=== PATIENT | male | born 1945 | race Caucasian/White ===

== ENCOUNTER 2023-05-23 18:59 | Inpatient (IN) | payer MEDICARE, SELFPAY ==
[2023-05-23] VITALS (23 sets, daily range): BP systolic 165–186; BP diastolic 88–104; PULSE 76–100; RESP 14–28; TEMP 36.7; O2SAT 92–97; BMI 25.1
--- NOTE | 2023-05-23 19:07 | ECG_ITS ---
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
--- NOTE | 2023-05-23 19:20 | CT_ITS ---
The [address] [address] Patient Name: ABIGAIL BIRMINGHAM MRN: [id number] date: 1945 Sex: M Assigned Patient Location: ER Current Patient Location: Accession/Order Number: [id number] Exam Date: 05/23/2023 19:34 Report Date: 05/23/2023 20:34 At the request of: STEPHANIE GODINEZ Procedure: CT abdomen pelvis wo con EXAM: CT abdomen pelvis wo con TECHNIQUE: Axial CT images were obtained of the abdomen and pelvis with intravenous contrast. Sagittal and coronal reformatted images were also obtained. Dose reduction techniques were achieved by using automated exposure control and/or adjustment of mA and/or kV according to patient size and/or use of iterative reconstruction technique. HISTORY: right sided abd pain COMPARISON: None. FINDINGS: Lower chest: Mild patchy bibasilar scarring and atelectasis. Liver: The liver is homogeneous with normal contours and normal size. Gallbladder: The gallbladder is distended with a thickened wall and surrounding inflammation. Several stones are seen within the gallbladder. No biliary dilatation. Pancreas: The pancreas is homogeneous without evidence for mass lesion or inflammation. Spleen: The spleen is unremarkable without evidence for mass lesion. Adrenal glands: The adrenal glands are unremarkable Kidneys and bladder: Bilateral benign cortical renal cysts. No hydronephrosis. The ureters demonstrate normal caliber. The urinary bladder is unremarkable. GI Tract: Moderate to large paraesophageal hiatal hernia. Visualized small bowel is unremarkable without evidence for obstruction or active inflammation. Diverticula are seen of the colon, more significant involving the distal colon. The visualized large bowel is otherwise unremarkable. Reproductive: The prostate gland is enlarged. Lymph nodes: No retroperitoneal or abdominal lymphadenopathy. Vascular: The aorta is not dilated. Peritoneum: No free intraperitoneal air or fluid. No acute inflammation. Abdominal wall: Severe degenerative facet changes of the lower lumbar spine. CT/CT abdomen pelvis wo con IMPRESSION: Findings of acute cholecystitis. Electronically authenticated by: VANESSA RETANA Date: 05/23/2023 20:34
[2023-05-23 19:26] LABS: Hematocrit 49.4 % (42.0-54.0); Hemoglobin 16.5 g/dL (14.0-18.0); Mean Corpuscular HGB Conc 33.4 g/dL (29.9-35.2); Mean Platelet Volume 9.5 fL (9.5-13.5); Platelet Count 237 10^3/uL (150-450); Red Blood Count 5.68 10^6/uL (4.70-6.10); Red Cell Distribution Width 12.6 % (11.0-15.0); White Blood Count 17.1 10^3/uL (4.0-11.0)
[2023-05-23] MEDS: ONDANSETRON PF 4 MG/2 ML VIAL IV (19:30)
[2023-05-23] MEDS: PANTOPRAZOLE SODIUM 40 MG VIAL IV (19:30)
[2023-05-23 19:42] LABS: Alanine Aminotransferase 25 U/L (16-63); Albumin Globulin Ratio 0.9; Albumin Level 3.8 g/dL (3.4-5.0); Alkaline Phosphatase 132 U/L (46-116); Anion Gap 17.7; Aspartate Amino Transferase 22 U/L (15-37); BUN Creatinine Ratio 15.3; Bilirubin Total 1.5 mg/dL (0.2-1.0); Calcium 9.1 mg/dL (8.5-10.1); Carbon Dioxide 22.9 mmol/L (21.0-32.0); Chloride 97 mmol/L (98-107); Estimated GFR (African America >60 (>=60); Estimated GFR (Non-African Ame >60 (>=60); Globulin 4.2 g/dL; Glucose 178 mg/dL (74-106); Potassium 3.6 mmol/L (3.5-5.1); Sodium 134 mmol/L (136-145); Troponin I High Sensitivity 5.7 pg/mL (4.0-76.1)
--- NOTE | 2023-05-23 19:44 | ED_ITS ---
HPI - General Adult General Chief complaint: Chest Pain Stated complaint: Chest pain Time Seen by Provider: 05/23/23 19:00 Source: patient Mode of arrival: walk-in History of Present Illness HPI narrative: Patient complains of upper abdominal/lower chest pain that is usually typical for GERD. He usually takes a TUMS and it goes away. But if I wait too long, it stays for a long time. He said he could not immediately take a Tums last night when the pain began. Since then he has only taken sips of water because of water. No vomiting or diarrhea. The pain has moved into the right upper abdomen with radiation to the right flank - that is unusual for him. No urinary symptoms or problems passing stool. He denied any fever or chills. No skin rash to the right abdomen or flank. No prior abdominal surgeries. Related Data Home Medications ?Medication ?Instructions ?Recorded ?Confirmed simvastatin 20 mg tablet mg 05/23/23 Allergies Allergy/AdvReac Type Severity Reaction Status Date / Time No Known Drug Allergies Allergy Verified 05/23/23 19:08 Exam Narrative Exam Narrative: Nurses notes and vital signs reviewed and patient is not hypoxic. Afebrile General: Well-appearing and in no apparent distress. Skin: Warm, dry, no pallor noted. No rash To the right abdomen or right flank. Eye: Pupils are equal, round and EOMI. No scleral icterus. Ears, Nose, Mouth, and Throat: Oral mucosa is moist Cardiovascular: Regular Rate and Rhythm without murmur, gallop or rub. Respiratory: No accessory muscle use or respiratory distress. Lungs are clear to auscultation, no wheezing, rales or rhonchi Chest Wall: no tenderness, Crepitus or subcutaneous emphysema Back: No CVA tenderness Musculoskeletal: normal ROM, no calf or popliteal tenderness, no lower extremity edema/swelling GI: Abdomen is soft, non-distended. Normal bowel sounds. No masses appreciated. Mild diffuse right-sided tenderness to palpation. No rebound, guarding, or rigidity noted. Neurological: A&O x4. No cranial nerve dysfunction observed. No truncal ataxia. Moves all extremities. Sensation intact. Psychiatric: Cooperative and interactive. Normal mood and affect. Constitutional Vital Signs, click to edit/add: Last Vital Signs Temp 98.1 F 05/23/23 19:09 Pulse 87 05/23/23 20:20 Resp 19 05/23/23 20:20 BP 179/98 H 05/23/23 20:05 Pulse Ox 95 05/23/23 20:20 Course Vital Signs Vital signs: Vital Signs Pulse Rate 100 H 05/23/23 19:04 Respiratory Rate 22 05/23/23 19:04 Temperature 98.1 F 05/23/23 19:09 Pulse Rate 87 05/23/23 20:20 Respiratory Rate 19 05/23/23 20:20 Blood Pressure 179/98 H 05/23/23 20:05 Pulse Oximetry 95 05/23/23 20:20 Medical Decision Making MDM Narrative Medical decision making narrative: Patient was placed on air sampling and monitoring and EKG obtained. Blood drawn and sent for evaluation. CT scan of the abdomen pelvis was obtained without contrast. Patient has acute cholecystitis. WBC 17k. Total Bilirubin elevated at 1.5 with direct bili at 0.4. Normal electrolytes and renal function. Lactate elevated at 2.3. patient afebrile and did not have SIRS criteria. Patient received IV Invanz. Case discussed with Dr Lyon, general surgeon deputy probation officer and he agreed to be a principal consultant on the case and will see the patient tomorrow. case discussed with the tele hospitalist and the patient will be admitted to Dr Muñiz's service - the patient's PCP is Reva Ritchie. Patient made NPO. He last ate around 6pm yesterday and is not on blood thinners. PMHx = hypercholesterolemia/lipidemia The patient was informed of findings, diagnosis and plan for treatment including admission and is agreeable to that plan. Lab Data Lab results reviewed: Yes I reviewed the patient's lab results Labs: Lab Results 05/23/23 Range/Units 19:13 WBC 17.1 H (4.0-11.0) 10^3/uL RBC 5.68 (4.70-6.10) 10^6/uL Hgb 16.5 (14.0-18.0) g/dL Hct 49.4 (42.0-54.0) % MCV 87.0 (80.0-94.0) fL MCH 29.0 (25.9-34.0) pg MCHC 33.4 (29.9-35.2) g/dL RDW 12.6 (11.0-15.0) % Plt Count 237 (150-450) 10^3/uL MPV 9.5 (9.5-13.5) fL Seg Neuts % (Manual) 87.0 Band Neutrophils % 3.0 (0-5) % Lymphocytes % (Manual) 1.0 L (20.5-60.0) % Atypical Lymphs % (Man) 0.0 % Monocytes % (Manual) 9.0 (1.7-12.0) % Eosinophils % (Manual) 0.0 L (0.9-7.0) % Basophils % (Manual) 0.0 L (0.2-2.0) % Neutrophils # (Manual) 14.87 H (1.4-6.5) 10^3/uL Band Neutrophils # 0.5 H (0.0-0.3) 10^3/uL Lymphocytes # (Manual) 0.17 L (1.20-3.80) 10^3/uL Abs Atypical Lymphs Man 0.00 Monocytes # (Manual) 1.53 H (0.30-0.80) 10^3/uL Eosinophils # (Manual) 0.00 (0.00-0.70) 10^3/uL Basophils # (Manual) 0.00 (0.00-0.10) 10^3/uL Sodium 134 L (136-145) mmol/L Potassium 3.6 (3.5-5.1) mmol/L Chloride 97 L (98-107) mmol/L Carbon Dioxide 22.9 (21.0-32.0) mmol/L Anion Gap 17.7 BUN 17.0 (7.0-18.0) mg/dL Creatinine 1.11 (0.70-1.30) mg/dL Est GFR ( Amer) >60 (>=60) Est GFR (Non-Af Amer) >60 (>=60) BUN/Creatinine Ratio 15.3 Glucose 178 H (74-106) mg/dL Lactate 2.3 H* (0.4-2.0) mmol/L Calcium 9.1 (8.5-10.1) mg/dL Total Bilirubin 1.5 H (0.2-1.0) mg/dL Direct Bilirubin 0.4 H (0.0-0.2) mg/dL AST 22 (15-37) U/L ALT 25 (16-63) U/L Alkaline Phosphatase 132 H (46-116) U/L Troponin I High Sens 5.7 (4.0-76.1) pg/mL Total Protein 8.0 (6.4-8.2) g/dL Albumin 3.8 (3.4-5.0) g/dL Globulin 4.2 g/dL Albumin/Globulin Ratio 0.9 Lipase 20.0 (16.0-77.0) U/L Imaging Data CT scan - abdomen: Radiologist's impression: ITS Impressions Abdomen/Pelvis CT 05/23/23 19:20 IMPRESSION: Findings of acute cholecystitis. Electronically authenticated by: VANESSA RETANA Date: 05/23/2023 20:34 ECG Data Attestation: I personally reviewed and interpreted this ECG as follows: Interpretation: EKG interpretation: Emergency Department physician interpretation. Normal sinus rhythm at 96bpm. Normal axis, normal intervals and no ST segment elevation or depression. Normal EKG Discharge Plan Discharge Chief Complaint: Chest Pain Clinical Impression: Acute cholecystitis Patient Disposition: Admitted as Observation Time of Disposition Decision: 20:58
[2023-05-23 19:50] LABS: Lactate/Lactic Acid 2.3 mmol/L (0.4-2.0)
[2023-05-23 20:03] LABS: Band Neutrophils Absolute 0.5 10^3/uL (0.0-0.3); Lymphocytes Absolute Manual 0.17 10^3/uL (1.20-3.80); Monocytes Absolute Manual 1.53 10^3/uL (0.30-0.80); Segmented Neut Absolute Manual 14.87 10^3/uL (1.4-6.5)
[2023-05-23 20:16] LABS: Bilirubin Direct 0.4 mg/dL (0.0-0.2)
[2023-05-23] MEDS: MORPHINE SULFATE 4 MG/ML VIAL IV (20:18)
[2023-05-23] MEDS: 0.9 % SODIUM CHLORIDE 1,000 ML 1000 ML IV (20:19)
[2023-05-23] MEDS: ERTAPENEM SODIUM 1 GM in 0.9 % SODIUM CHLORIDE 50 ML IV (21:17)
[2023-05-23 22:51] LABS: Lactate/Lactic Acid 2.1 mmol/L (0.4-2.0)
[2023-05-24] VITALS (23 sets, daily range): BP systolic 107–182; BP diastolic 68–104; PULSE 77–98; RESP 12–20; TEMP 36.6–38.4; O2SAT 90–94
[2023-05-24] MEDS: 0.9 % SODIUM CHLORIDE 1,000 ML 100 ML IV ×3 (00:35→21:16)
[2023-05-24 02:24] LABS: Lactate/Lactic Acid 2.1 mmol/L (0.4-2.0)
--- NOTE | 2023-05-24 07:23 | PM.GSCN ---
History of Present Illness Consult details Consult date: 05/24/23 Reason for consult: gallstones Requesting physician: Jc Long Narrative: Paresh Mahmood is a 77-year-old male who presented to the Emergency Department last evening with complaints of right upper quadrant of Paresh pain progressively becoming worse since Monday at noon. He denies any nausea or vomiting but that admitted to fever and chills. He's had pain in the epigastrium for 10-15 years which is self treated with Tums which is always relieved his discomfort. He is and lives alone. He has two daughters one which lives in [place] and one in [facility]. 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 He walks 2 miles a day. He rated the pain as a ten out of ten last night and this morning as a five out of ten slightly better. CAT scan of the abdomen and pelvis was related to me and stated that he had acute cholecystitis with cholelithiasis. He has never been hospitalized. He drinks heavily in the past but now only drinks 1-2 alcoholic beverages a week. Denies tobacco use. Review of Systems ROS Status of ROS 10 or more systems reviewed and unremarkable except as noted in history and below [facility] Medical History (Updated 05/23/23 @ 21:55 by Paola Sanchez) High cholesterol ?E78.00 - Pure hypercholesterolemia, unspecified (ICD-10) Surgical History Hx of tonsillectomy ?Z90.89 - Acquired absence of other organs (ICD-10) Social History Highest level of school completed/degree received: GED or equivalent Gender Identity: male Meds Home Medications and Allergies Home Medications ?Medication ?Instructions ?Recorded ?Confirmed ?Type simvastatin 20 mg tablet 40 mg PO DAILY 05/23/23 05/23/23 History Allergies Allergy/AdvReac Type Severity Reaction Status Date / Time No Known Drug Allergies Allergy Verified 05/23/23 19:08 Exam Constitutional Vital Signs, click to edit/add: Last Vital Signs Temp 98.9 F 05/24/23 04:00 Pulse 94 H 05/24/23 04:00 Resp 16 05/24/23 04:00 BP 182/100 H 05/24/23 04:00 Pulse Ox 90 L 05/24/23 04:00 O2 Del Method Room Air 05/24/23 04:00 Documenting provider has reviewed patient's vital signs: yes Common normals: no apparent distress, average body habitus, oriented x3, healthy appearing, alert and well nourished HENPR Common normals: normocephalic Eye Common normals: no scleral icterus Respiratory Common normals: normal respiratory effort and clear to auscultation bilaterally Cardio Common normals: regular rate and regular rhythm Rate: regular rate Rhythm: regular rhythm GI Common normals: Normal to inspection, nondistended, normoactive bowel sounds present and soft to palpation Palpation: tender Details: RUQ and Herrera's sign Extremity Common normals: normal to inspection and full ROM Neuro Common normals: oriented x3 and CN's II-XII intact bilaterally Results Labs Labs: Abnormal lab results 05/23/23 05/23/23 05/24/23 Range/Units 19:13 22:17 02:00 WBC 17.1 H (4.0-11.0) 10^3/uL Lymphocytes % (Manual) 1.0 L (20.5-60.0) % Eosinophils % (Manual) 0.0 L (0.9-7.0) % Basophils % (Manual) 0.0 L (0.2-2.0) % Neutrophils # (Manual) 14.87 H (1.4-6.5) 10^3/uL Band Neutrophils # 0.5 H (0.0-0.3) 10^3/uL Lymphocytes # (Manual) 0.17 L (1.20-3.80) 10^3/uL Monocytes # (Manual) 1.53 H (0.30-0.80) 10^3/uL Sodium 134 L (136-145) mmol/L Chloride 97 L (98-107) mmol/L Glucose 178 H (74-106) mg/dL Lactate 2.3 H* 2.1 H 2.1 H (0.4-2.0) mmol/L Total Bilirubin 1.5 H (0.2-1.0) mg/dL Direct Bilirubin 0.4 H (0.0-0.2) mg/dL Alkaline Phosphatase 132 H (46-116) U/L Diabetes panel 05/23/23 Range/Units 19:13 Sodium 134 L (136-145) mmol/L Potassium 3.6 (3.5-5.1) mmol/L Chloride 97 L (98-107) mmol/L Carbon Dioxide 22.9 (21.0-32.0) mmol/L BUN 17.0 (7.0-18.0) mg/dL Creatinine 1.11 (0.70-1.30) mg/dL Glucose 178 H (74-106) mg/dL Calcium 9.1 (8.5-10.1) mg/dL AST 22 (15-37) U/L ALT 25 (16-63) U/L Alkaline Phosphatase 132 H (46-116) U/L Total Protein 8.0 (6.4-8.2) g/dL Albumin 3.8 (3.4-5.0) g/dL Calcium panel 05/23/23 Range/Units 19:13 Calcium 9.1 (8.5-10.1) mg/dL Albumin 3.8 (3.4-5.0) g/dL Pituitary panel 05/23/23 Range/Units 19:13 Sodium 134 L (136-145) mmol/L Potassium 3.6 (3.5-5.1) mmol/L Chloride 97 L (98-107) mmol/L Carbon Dioxide 22.9 (21.0-32.0) mmol/L BUN 17.0 (7.0-18.0) mg/dL Creatinine 1.11 (0.70-1.30) mg/dL Glucose 178 H (74-106) mg/dL Calcium 9.1 (8.5-10.1) mg/dL Adrenal panel 05/23/23 Range/Units 19:13 Sodium 134 L (136-145) mmol/L Potassium 3.6 (3.5-5.1) mmol/L Chloride 97 L (98-107) mmol/L Carbon Dioxide 22.9 (21.0-32.0) mmol/L BUN 17.0 (7.0-18.0) mg/dL Creatinine 1.11 (0.70-1.30) mg/dL Glucose 178 H (74-106) mg/dL Calcium 9.1 (8.5-10.1) mg/dL Total Bilirubin 1.5 H (0.2-1.0) mg/dL AST 22 (15-37) U/L ALT 25 (16-63) U/L Alkaline Phosphatase 132 H (46-116) U/L Total Protein 8.0 (6.4-8.2) g/dL Albumin 3.8 (3.4-5.0) g/dL All other labs normal. Imaging Abdomen CT scan report/results: report reviewed Assessment and Plan Assessment and Plan (1) Acute cholecystitis: (2) High cholesterol: Plan robotic/da Susan cholecystectomy with IC Green with possible open cholecystectomy. Risks benefits and alternatives to surgery may include infection, bleeding, bile duct injury, blood clots legs or lungs, pneumonia, heart attack, stroke, and/or . Patient voiced understanding of all the above.
[2023-05-24 08:02] LABS: Hematocrit 48.3 % (42.0-54.0); Mean Corpuscular HGB Conc 33.1 g/dL (29.9-35.2); Mean Corpuscular Hemoglobin 29.4 pg (25.9-34.0); Mean Corpuscular Volume 88.6 fL (80.0-94.0); Mean Platelet Volume 9.6 fL (9.5-13.5); Platelet Count 227 10^3/uL (150-450); Red Blood Count 5.45 10^6/uL (4.70-6.10); Red Cell Distribution Width 12.9 % (11.0-15.0); White Blood Count 21.1 10^3/uL (4.0-11.0)
--- NOTE | 2023-05-24 08:04 | P.HP_ITS ---
HPI H&P: HPI History of Present Illness Chief complaint: Chest pain Acute Cholecystitis Narrative: Patient presented to the emergency room with increasing right upper quadrant pain. Epigastric pain as well. No shortness of breath. No pain up into the chest. In ER CT scan confirmed acute cholecystitis. With elevation of white blood cell count and positive lactate patient was placed on IV antibiotics, admitted for surgical intervention this morning. Opioid HPI Opioid Management Most Recent Opioid Data: Last Pain Assessment 05/24/23 12:35 Last MAR Pain Assessment 05/24/23 08:52 Last ORT Total Score 4 05/23/23 21:50 Last ORT Risk Category Moderate Risk 05/23/23 21:50 Review of Systems ROS Status of ROS 10 or more systems reviewed and unremark able except as noted in history and below [facility] Medical History (Updated 05/23/23 @ 21:55 by Paola Sanchez) High cholesterol ?E78.00 - Pure hypercholesterolemia, unspecified (ICD-10) Surgical History Hx of tonsillectomy ?Z90.89 - Acquired absence of other organs (ICD-10) Social History Highest level of school completed/degree received: GED or equivalent Gender Identity: male Meds Home Medications and Allergies Home Medications ?Medication ?Instructions ?Recorded ?Confirmed ?Type simvastatin 20 mg tablet 40 mg PO DAILY 05/23/23 05/23/23 History Allergies Allergy/AdvReac Type Severity Reaction Status Date / Time No Known Drug Allergies Allergy Verified 05/23/23 19:08 Exam Constitutional Vital Signs, click to edit/add: Last Vital Signs Temp 98.7 F 05/24/23 07:55 Pulse 98 H 05/24/23 07:55 Resp 16 05/24/23 07:55 BP 180/93 H 05/24/23 07:55 Pulse Ox 90 L 05/24/23 07:55 O2 Del Method Room Air 05/24/23 07:55 Documenting provider has reviewed patient's vital signs: yes Common normals: no apparent distress Chest Common normals: inspection of chest normal Respiratory Common normals: normal respiratory effort and no retractions Cardio Common normals: regular rate and regular rhythm GI Common normals: Normal to inspection, nondistended, normoactive bowel sounds present and soft to palpation; tender (right upper quadrant tenderness with positive Herrera's, no rebound tenderne) Extremity Common normals: normal to inspection Results Labs Labs: Short CBC 05/23/23 05/24/23 Range/Units 19:13 07:48 WBC 17.1 H 21.1 H (4.0-11.0) 10^3/uL Hgb 16.5 16.0 (14.0-18.0) g/dL Hct 49.4 48.3 (42.0-54.0) % Plt Count 237 227 (150-450) 10^3/uL BMP 05/23/23 19:13 Sodium 134 L Potassium 3.6 Chloride 97 L Carbon Dioxide 22.9 BUN 17.0 Creatinine 1.11 Glucose 178 H Calcium 9.1 Liver Function 05/23/23 Range/Units 19:13 Total Bilirubin 1.5 H (0.2-1.0) mg/dL Direct Bilirubin 0.4 H (0.0-0.2) mg/dL AST 22 (15-37) U/L ALT 25 (16-63) U/L Alkaline Phosphatase 132 H (46-116) U/L Albumin 3.8 (3.4-5.0) g/dL Assessment and Plan Assessment and Plan (1) Acute cholecystitis: (2) High cholesterol: Plan Fever, respiratory distress, sinus tachycardia, uncontrolled hypertension, leukocytosis, positive lactate, hyperbilirubinemia, borderline coagulopathy secondary to acute cholecystitis resulting in severe sepsis-plan for surgical intervention this morning. Place patient on continued IV antibiotics. IV fluids. Blood cultures obtained. Held off on high volume of fluids secondary to blood pressure already significantly elevated, high risk for heart failure. Leukocytosis-likely secondary to the above-continue to monitor daily Hyponatremia secondary to dehydration secondary to the above-monitor daily Uncontrolled hypertension-IV medications until can take oral medications Hypercholesterolemia-hold medication for now With severe sepsis due to acute cholecystitis medically necessary treatment spanning more than 2 midnights, place patient inpatient status.
[2023-05-24 08:19] LABS: Ammonia <10 umol/L (11-32)
[2023-05-24 08:20] LABS: Alanine Aminotransferase 24 U/L (16-63); Albumin Globulin Ratio 0.7; Alkaline Phosphatase 115 U/L (46-116); Amylase 27 U/L (25-115); Anion Gap 16.1; Aspartate Amino Transferase 19 U/L (15-37); BUN Creatinine Ratio 16.5; Bilirubin Total 1.2 mg/dL (0.2-1.0); Calcium 8.7 mg/dL (8.5-10.1); Carbon Dioxide 25.3 mmol/L (21.0-32.0); Chloride 101 mmol/L (98-107); Estimated GFR (African America >60 (>=60); Estimated GFR (Non-African Ame >60 (>=60); Globulin 4.3 g/dL; Glucose 125 mg/dL (74-106); Potassium 4.4 mmol/L (3.5-5.1); Sodium 138 mmol/L (136-145); Total Protein 7.3 g/dL (6.4-8.2)
[2023-05-24] MEDS: INDOCYANINE GREEN 25 MG VIAL INJ (08:25)
[2023-05-24] MEDS: LACTATED RINGER'S SOLUTION 1,000 ML 50 ML IV (08:26)
[2023-05-24 08:36] LABS: Lymphocytes Absolute Manual 0.84 10^3/uL (1.20-3.80); Monocytes Absolute Manual 1.47 10^3/uL (0.30-0.80); Segmented Neut Absolute Manual 18.77 10^3/uL (1.4-6.5)
[2023-05-24 08:38] LABS: INR 1.24; Partial Thromboplastin Time 32.9 sec (22.3-36.2)
[2023-05-24] MEDS: HYDROMORPHONE HCL 0.5 MG/0.5 ML SYRINGE IV ×2 (08:52→13:17)
--- NOTE | 2023-05-24 09:34 | P.GSPRC_ITS ---
Date of procedure: 05/24/23 Indications for Procedure: acute cholecystitis with cholelithiasis Pre-op diagnosis: acute cholecystitis with cholelithiasis;umbilical hernia Post-op diagnosis: other (acute gangrenous cholecystitis with cholelithiasis) Procedure: #1.robotic da Susan cholecystectomy with IC Green #2. Umbilical hernia repair primary 1.5 cm Findings: acute gangrenous cholecystitis with cholelithiasis Anesthesia: JT Surgeon: Jeronimo Lyon Procedure Summary: After again explaining the risks and benefits of the procedure in the preoperative care unit consent was obtained. ?The patient was taken back to the operative room and placed on the operative room table. General endotracheal anesthesia was induced and preoperative antibiotics were given. ?Appropriate time-out was performed. ?Right arm was?tucked at the side. ?Then the bed was positioned appropriately. ?The abdomen was prepped and draped in normal sterile fashion. A periumbilical incision was made. ?Dissection was carried down to the fascia. ?Fascia was elevated with jolene clamps and entered sharply.there was an umbilical hernia that was measuring 1.5 cm which we were able to enter the peritoneal cavity. A 12 mm port was placed into the abdomen and the abdomen was insufflated, there were no complications with insufflation. ?The scope and camera was brought in and then 3 more ports were placed. An 8?mm port was placed in the right lateral position. Two additional?8 mm Davinci ports were placed, 8 cm to the left and one to the right of the umbilicus. ?The patient was then placed in reverse Trendelenburg position and slightly turned to the left. The [employer] robot was docked. The 4th arm was used to grasp the dome of the gallbladder superiorly. ?The peritoneal attachments were taken down with meticulous dissection laterally and medially from the gallbladder. the gallbladder was very distended therefore cautery was used of the hook to open it and clear bile came out and this was suctioned out as much as possible in order to grasp the dome of the gallbladder.?At this point the infundibular gallbladder was retracted laterally and a critical view was obtained. ?With the cystic duct inferiorlywith a stone within it cystic artery medially and the liver posteriorly. ?Two clips were placed on the patient side and 1 on the specimen side of both the cystic duct and the cystic artery. ?These were then excised. ?The remainder of the gallbladder was taken off of the gallbladder fossa using electrocautery.there was a lot of oozing because of the acuteness. Hemostasis was maintained and a large piece of Surgicel was placed into the gallbladder fossa. There was spillage of stones and when I tried to grasp them they crushed and cholesterol stones and couldn't be removed. Everything was irrigated as much as possible and aspirated. The gallbladder was then removed through the umbilical port using Endo-Catch bag. ?The gallbladder fossa was visualized again to confirm no bleeding and no leak from the cystic duct. The robot was undocked from the patient. The abdomen was deinsufflated.? The anterior rectus fascia from the hernia was closed with a denosb-el-zeosw #1Vicryl. The skin was closed at all the incisions with 4 0 Monocryl. All incisions and underlying muscle was anesthetized with local anesthetic.? Steri- Strips were then placed over the incisions. The patient was extubated and had no immediate postoperative complications. Patient was taken to the PACU in stable condition. Gold Burnisher: SARAH Menezes Estimated blood loss (mL): 50 Specimens: gallbladder and stones Complications: No Condition: stable Disposition: PACU
[2023-05-24] MEDS: HYDRALAZINE HCL 20 MG/ML VIAL 10 MG IVP ×2 (13:17→16:57)
--- NOTE | 2023-05-24 13:19 | SWNOTE1 ---
SW met with pt to discuss dc needs. Pt lives at home by himself, he has family (daughters), who help him as needed. Pt is active and runs 2 miles daily. Pt has no concerns about discharge. SW reviewed IMM form with pt, he voiced understanding, no questions or concerns. Pt signed form, original was given to pt and copy placed on chart.
[2023-05-24] MEDS: CARVEDILOL 6.25 MG TABLET PO (16:57)
[2023-05-24] MEDS: OXYCODONE HCL/ACETAMINOPHEN 5MG/325MG 1 TAB PO (21:15)
[2023-05-24] MEDS: ERTAPENEM SODIUM 1 GM in 0.9 % SODIUM CHLORIDE 50 ML IV (21:16)
[2023-05-24] MEDS: PANTOPRAZOLE SODIUM 40 MG VIAL IV (21:16)
[2023-05-25] VITALS (14 sets, daily range): BP systolic 113–159; BP diastolic 68–88; PULSE 75–92; RESP 16–20; TEMP 36.6–37.4; O2SAT 86–95; BMI 25.1
[2023-05-25 04:59] LABS: Basophils Percent Auto 0.1 % (0.2-2.0); Eosinophils Absolute Auto 0.1 10^3/uL (0.0-0.7); Eosinophils Percent Auto 0.4 % (0.9-7.0); Hematocrit 41.2 % (42.0-54.0); Hemoglobin 13.5 g/dL (14.0-18.0); Immature Granulocytes Abs Auto 0.04 10^3/uL (0.00-0.03); Immature Granulocytes Pct Auto 0.4 % (0.0-0.5); Lymphocytes Absolute Auto 0.6 10^3/uL (1.2-3.8); Lymphocytes Percent Auto 5.2 % (20.5-60.0); Mean Corpuscular HGB Conc 32.8 g/dL (29.9-35.2); Mean Corpuscular Volume 88.4 fL (80.0-94.0); Mean Platelet Volume 9.8 fL (9.5-13.5); Monocytes Absolute Auto 0.7 10^3/uL (0.3-0.8); Monocytes Percent Auto 6.1 % (1.7-12.0); Neutrophils Percent Auto 87.8 % (43.0-75.0); Platelet Count 179 10^3/uL (150-450); Red Blood Count 4.66 10^6/uL (4.70-6.10); Red Cell Distribution Width 13.1 % (11.0-15.0); White Blood Count 11.4 10^3/uL (4.0-11.0)
[2023-05-25 05:22] LABS: Alanine Aminotransferase 25 U/L (16-63); Albumin Globulin Ratio 0.6; Albumin Level 2.1 g/dL (3.4-5.0); Alkaline Phosphatase 86 U/L (46-116); Amylase 12 U/L (25-115); Anion Gap 12.7; Aspartate Amino Transferase 28 U/L (15-37); BUN Creatinine Ratio 20.7; Bilirubin Total 0.8 mg/dL (0.2-1.0); Calcium 7.8 mg/dL (8.5-10.1); Carbon Dioxide 25.2 mmol/L (21.0-32.0); Chloride 105 mmol/L (98-107); Estimated GFR (African America >60 (>=60); Estimated GFR (Non-African Ame >60 (>=60); Globulin 3.7 g/dL; Glucose 96 mg/dL (74-106); Potassium 3.9 mmol/L (3.5-5.1); Sodium 139 mmol/L (136-145); Total Protein 5.8 g/dL (6.4-8.2)
--- NOTE | 2023-05-25 05:42 | PM.GSPN ---
Progress Note: A&P Assessment and Plan (1) Acute cholecystitis: (2) High cholesterol: Assessment and Plan: postop day #1 robotic cholecystectomy for gangrenous cholecystitis with cholelithiasis suspect he has an ileus Plan I encourage ambulation and liquids only until passing flatus and continue IV antibiotics spillage of stone in the abdomen and gangrene of the gallbladder until white blood count is trending downward. Labs pending. Subjective Subjective Patient reports: no new complaints, feels better, pain is less, no flatus and no bowel movement Interval history: postop day #1 robotic cholecystectomy for acute gangrenous cholecystitis with cholelithiasis; pain is better. Is not passing flatus or is not had any bowel movements. Exam Constitutional Vital Signs, click to edit/add: Last Vital Signs Temp 98.7 F 05/25/23 04:11 Pulse 87 05/25/23 04:11 Resp 18 05/25/23 04:11 BP 143/77 H 05/25/23 04:11 Pulse Ox 92 L 05/25/23 04:11 O2 Del Method Nasal Cannula 05/25/23 04:11 O2 Flow Rate 4 05/25/23 04:11 GI Common normals: soft to palpation Inspection: other (slightly distended and tympanitic) Auscultation: hypoactive bowel sounds
--- NOTE | 2023-05-25 07:23 | P.PN_ITS ---
Exam Constitutional Vital Signs, click to edit/add: Last Vital Signs Temp 98.7 F 05/25/23 04:11 Pulse 87 05/25/23 04:11 Resp 18 05/25/23 04:11 BP 143/77 H 05/25/23 04:11 Pulse Ox 92 L 05/25/23 04:11 O2 Del Method Nasal Cannula 05/25/23 04:11 O2 Flow Rate 4 05/25/23 04:11 Progress Note: Objective Labs Labs: Short CBC 05/24/23 05/25/23 Range/Units 07:48 04:14 WBC 21.1 H 11.4 H (4.0-11.0) 10^3/uL Hgb 16.0 13.5 L (14.0-18.0) g/dL Hct 48.3 41.2 L (42.0-54.0) % Plt Count 227 179 (150-450) 10^3/uL BMP 05/24/23 05/25/23 07:48 04:14 Sodium 138 139 Potassium 4.4 3.9 Chloride 101 105 Carbon Dioxide 25.3 25.2 BUN 17.0 24.0 H Creatinine 1.03 1.16 Glucose 125 H 96 Calcium 8.7 7.8 L Liver Function 05/24/23 05/25/23 Range/Units 07:48 04:14 Total Bilirubin 1.2 H 0.8 (0.2-1.0) mg/dL AST 19 28 (15-37) U/L ALT 24 25 (16-63) U/L Alkaline Phosphatase 115 86 (46-116) U/L Albumin 3.0 L 2.1 L (3.4-5.0) g/dL Progress Note: A&P Assessment and Plan (1) Acute cholecystitis: (2) High cholesterol: Plan Fever, respiratory distress, sinus tachycardia, uncontrolled hypertension, leukocytosis, positive lactate, hyperbilirubinemia, borderline coagulopathy secondary to acute cholecystitis resulting in severe sepsis on admission -status post cholecystectomy on 05/24/2023, white blood cell count improving, hyperbilirubinemia improving, no elevation amylase lipase. Overall improvement. Low-grade fever overnight Ileus-he is a little bit bloated today, no BM or passing flatus yet-change patient to clear liquids-advance once has BM or flatus Postoperative hypoxia with atelectasis-changes on lung exam consistent with atelectasis, check chest x-ray, start patient on IPV treatments since already been on PEP Dilutional and postoperative blood loss anemia-cut back on fluids today. Leukocytosis-likely secondary to the above-continue to monitor daily-improved Hyponatremia secondary to dehydration secondary to the above-improved Uncontrolled hypertension-IV medications and started patient on Coreg Hypercholesterolemia-hold medication for now Severe protein calorie malnutrition-increase dietary supplementation with Ensure Plus and Pro-Stat With severe sepsis due to acute cholecystitis - medically necessary treatment spanning more than 2 midnights, maintain patient inpatient status. ?
--- NOTE | 2023-05-25 07:25 | XR_ITS ---
The [address] [address] Patient Name: ABIGAIL BIRMINGHAM MRN: [id number] date: 1945 Sex: M Assigned Patient Location: [place] Current Patient Location: [place] Accession/Order Number: [id number] Exam Date: 05/25/2023 07:40 Report Date: 05/25/2023 08:11 At the request of: BI PORTILLO Procedure: XR chest 2V EXAMINATION: XR chest 2V HISTORY: acute hypoxia COMPARISON: No relevant comparison available. FINDINGS: LUNGS: Underexpanded lungs. Mild strandy opacity within medial right lung base and left lung base. VASCULATURE: No increased pulmonary vasculature. PLEURA: Blunting of costophrenic angles bilaterally suggesting pleural fluid. CARDIAC: No cardiomegaly or cardiac silhouette abnormality. MEDIASTINUM: No visible mass or adenopathy. BONES: No fracture or visible bone lesion. OTHER: Negative. XR/XR chest 2V IMPRESSION: 1. Low lung volume examination with suspected bilateral ofmek-qy-kqvrumih pleural effusions and mild bibasilar atelectasis versus infiltrates. Electronically authenticated by: ZULEMA HENDRICKSON Date: 05/25/2023 08:11
--- NOTE | 2023-05-25 07:39 | P.PN_ITS ---
Progress Note: Subjective Subjective Interval history: Denies chest pain or shortness of breath, does feel little bloated in his abdomen, denies flatus or BM Exam Constitutional Vital Signs, click to edit/add: Last Vital Signs Temp 98.7 F 05/25/23 04:11 Pulse 87 05/25/23 04:11 Resp 18 05/25/23 04:11 BP 143/77 H 05/25/23 04:11 Pulse Ox 92 L 05/25/23 04:11 O2 Del Method Nasal Cannula 05/25/23 04:11 O2 Flow Rate 4 05/25/23 04:11 Documenting provider has reviewed patient's vital signs: yes Common normals: no apparent distress Chest Common normals: inspection of chest normal Respiratory Common normals: normal respiratory effort and no retractions Auscultation: crackles (In bases, clear with deep inspiration) Cardio Common normals: regular rate and regular rhythm GI Common normals: Normal to inspection, nondistended, normoactive bowel sounds present (Deferred exam to surgery) Extremity Common normals: normal to inspection Progress Note: Objective Labs Labs: Short CBC 05/24/23 05/25/23 Range/Units 07:48 04:14 WBC 21.1 H 11.4 H (4.0-11.0) 10^3/uL Hgb 16.0 13.5 L (14.0-18.0) g/dL Hct 48.3 41.2 L (42.0-54.0) % Plt Count 227 179 (150-450) 10^3/uL BMP 05/24/23 05/25/23 07:48 04:14 Sodium 138 139 Potassium 4.4 3.9 Chloride 101 105 Carbon Dioxide 25.3 25.2 BUN 17.0 24.0 H Creatinine 1.03 1.16 Glucose 125 H 96 Calcium 8.7 7.8 L Liver Function 05/24/23 05/25/23 Range/Units 07:48 04:14 Total Bilirubin 1.2 H 0.8 (0.2-1.0) mg/dL AST 19 28 (15-37) U/L ALT 24 25 (16-63) U/L Alkaline Phosphatase 115 86 (46-116) U/L Albumin 3.0 L 2.1 L (3.4-5.0) g/dL Progress Note: A&P Assessment and Plan (1) Acute cholecystitis: (2) High cholesterol: Plan Fever, respiratory distress, sinus tachycardia, uncontrolled hypertension, leukocytosis, positive lactate, hyperbilirubinemia, borderline coagulopathy secondary to acute cholecystitis resulting in severe sepsis on admission -status post cholecystectomy on 05/24/2023, white blood cell count improving, hyperbilirubinemia improving, no elevation amylase lipase. Overall improvement. Low-grade fever overnight Ileus-he is a little bit bloated today, no BM or passing flatus yet-change patient to clear liquids-advance once has BM or flatus Postoperative hypoxia with atelectasis-changes on lung exam consistent with atelectasis, check chest x-ray, start patient on IPV treatments since already been on PEP Dilutional and postoperative blood loss anemia-cut back on fluids today. Leukocytosis-likely secondary to the above-continue to monitor daily-improved Hyponatremia secondary to dehydration secondary to the above-improved Uncontrolled hypertension-IV medications and started patient on Coreg Hypercholesterolemia-hold medication for now Severe protein calorie malnutrition-increase dietary supplementation with Ensure Plus and Pro-Stat With severe sepsis due to acute cholecystitis - medically necessary treatment spanning more than 2 midnights, maintain patient inpatient status. ? ?
[2023-05-25] MEDS: CARVEDILOL 6.25 MG TABLET PO ×2 (08:35→16:34)
[2023-05-25] MEDS: ACETAMINOPHEN 500 MG TABLET 1000 MG PO (08:35)
[2023-05-25] MEDS: LACTATED RINGER'S SOLUTION 1,000 ML 50 ML IV (10:16)
[2023-05-25] MEDS: SODIUM CHLORIDE 0.9% INHALATION 3 ML NEB 6 ML IH ×3 (11:20→23:15)
[2023-05-25] MEDS: IPRATROPIUM/ALBUTEROL SULFATE 3 ML AMPUL.NEB IH ×3 (11:20→23:15)
--- NOTE | 2023-05-25 11:40 | RESP.RT ---
titrated to 1L.
--- NOTE | 2023-05-25 13:00 | SWNOTE1 ---
NIYA reviewed therapy notes and home health or outpt was recommended. NIYA spoke to pt. He has a friend who is coming to stay with him for a few days who does home health and she will assist. He also stated he has a niece who will be staying with him after his friend leaves if she needs to to assist with therapy. Pt voices he is very active and he does not feel he will need any HH our outpt therapy at this time as he has help coming in. At this time pt is refusing HH and outpt therapy due to having help coming in. NIYA did advise pt that he can go through his primary care physician if he does decide he wants it. Pt voiced understanding.
[2023-05-25] MEDS: ENSURE HP 237 ML LIQUID PO (22:07)
[2023-05-25] MEDS: ERTAPENEM SODIUM 1 GM in 0.9 % SODIUM CHLORIDE 50 ML IV (22:08)
[2023-05-25] MEDS: PROSTAT 15 GM PROTEIN/100 CAL 30 ML LIQUID PACKET PO (22:08)
[2023-05-25] MEDS: PANTOPRAZOLE SODIUM 40 MG VIAL IV (22:08)
[2023-05-26] VITALS (15 sets, daily range): BP systolic 116–165; BP diastolic 75–91; PULSE 74–87; RESP 16–20; TEMP 36.5–37.8; O2SAT 90–93
[2023-05-26] MEDS: OXYCODONE HCL/ACETAMINOPHEN 5MG/325MG 1 TAB PO ×3 (04:23→16:25)
[2023-05-26 04:33] LABS: Basophils Percent Auto 0.2 % (0.2-2.0); Eosinophils Percent Auto 0.3 % (0.9-7.0); Hemoglobin 12.9 g/dL (14.0-18.0); Immature Granulocytes Abs Auto 0.02 10^3/uL (0.00-0.03); Immature Granulocytes Pct Auto 0.2 % (0.0-0.5); Lymphocytes Absolute Auto 0.8 10^3/uL (1.2-3.8); Mean Corpuscular HGB Conc 32.3 g/dL (29.9-35.2); Mean Corpuscular Hemoglobin 28.5 pg (25.9-34.0); Mean Corpuscular Volume 88.5 fL (80.0-94.0); Mean Platelet Volume 9.4 fL (9.5-13.5); Monocytes Absolute Auto 0.8 10^3/uL (0.3-0.8); Monocytes Percent Auto 8.5 % (1.7-12.0); Neutrophils Percent Auto 82.8 % (43.0-75.0); Platelet Count 202 10^3/uL (150-450); Red Blood Count 4.52 10^6/uL (4.70-6.10); Red Cell Distribution Width 12.9 % (11.0-15.0); White Blood Count 9.6 10^3/uL (4.0-11.0)
[2023-05-26 04:52] LABS: Alanine Aminotransferase 19 U/L (16-63); Albumin Level 1.8 g/dL (3.4-5.0); Alkaline Phosphatase 87 U/L (46-116); Anion Gap 10.2; Aspartate Amino Transferase 19 U/L (15-37); BUN Creatinine Ratio 27.4; Bilirubin Total 0.6 mg/dL (0.2-1.0); Carbon Dioxide 25.1 mmol/L (21.0-32.0); Chloride 105 mmol/L (98-107); Estimated GFR (African America >60 (>=60); Estimated GFR (Non-African Ame >60 (>=60); Glucose 94 mg/dL (74-106); Potassium 3.3 mmol/L (3.5-5.1); Sodium 137 mmol/L (136-145); Total Protein 5.8 g/dL (6.4-8.2)
[2023-05-26 04:57] LABS: Albumin Globulin Ratio 0.5
[2023-05-26] MEDS: IPRATROPIUM/ALBUTEROL SULFATE 3 ML AMPUL.NEB IH ×4 (05:51→22:32)
[2023-05-26] MEDS: LACTATED RINGER'S SOLUTION 1,000 ML 50 ML IV (05:57)
--- NOTE | 2023-05-26 08:00 | P.PN_ITS ---
Progress Note: Subjective Subjective Interval history: Patient denies shortness of breath or cough, increasing abdominal pain this morning but admits to pain pill overnight. Is passing flatus. Exam Constitutional Vital Signs, click to edit/add: Last Vital Signs Temp 97.9 F 05/26/23 07:40 Pulse 87 05/26/23 07:40 Resp 16 05/26/23 07:40 BP 144/77 H 05/26/23 07:40 Pulse Ox 91 L 05/26/23 07:40 O2 Del Method Room Air 05/26/23 07:40 O2 Flow Rate 1 05/26/23 05:51 Documenting provider has reviewed patient's vital signs: yes Common normals: no apparent distress Chest Common normals: inspection of chest normal Respiratory Common normals: normal respiratory effort and no retractions Auscultation: crackles (In bases, clear with deep inspiration) Cardio Common normals: regular rate and regular rhythm GI Common normals: Normal to inspection, nondistended, normoactive bowel sounds present (Deferred exam to surgery) Extremity Common normals: normal to inspection Progress Note: Objective Labs Labs: Short CBC 05/26/23 Range/Units 04:08 WBC 9.6 (4.0-11.0) 10^3/uL Hgb 12.9 L (14.0-18.0) g/dL Hct 40.0 L (42.0-54.0) % Plt Count 202 (150-450) 10^3/uL BMP 05/26/23 04:08 Sodium 137 Potassium 3.3 L Chloride 105 Carbon Dioxide 25.1 BUN 29.0 H Creatinine 1.06 Glucose 94 Calcium 8.0 L Liver Function 05/26/23 Range/Units 04:08 Total Bilirubin 0.6 (0.2-1.0) mg/dL AST 19 (15-37) U/L ALT 19 (16-63) U/L Alkaline Phosphatase 87 (46-116) U/L Albumin 1.8 L (3.4-5.0) g/dL Progress Note: A&P Assessment and Plan (1) Acute cholecystitis: (2) High cholesterol: Plan Fever, respiratory distress, sinus tachycardia, uncontrolled hypertension, leukocytosis, positive lactate, hyperbilirubinemia, borderline coagulopathy secondary to acute cholecystitis resulting in severe sepsis on admission -status post cholecystectomy on 05/24/2023, white blood cell count returned to normal, hyperbilirubinemia improving, no elevation amylase lipase. Persisting low-grade fever overnight, add levofloxacin for pseudomonal coverage Ileus-passing flatus this is likely resolved, advancing diet Postoperative hypoxia with atelectasis with small pleural effusions and atelectasis noted on chest x-ray-seems to be responding to IPV treatments, so far weaned off of supplemental oxygen this morning, but has not been ambulating Dilutional and postoperative blood loss anemia-saline lock Leukocytosis-likely secondary to the above-resolved Hyponatremia secondary to dehydration secondary to the above-improved Uncontrolled hypertension-as needed IV medications and started patient on Coreg Hypercholesterolemia-hold medication for now Severe protein calorie malnutrition-increase dietary supplementation with Ensure Plus and Pro-Stat Hypokalemia-supplement With severe sepsis due to acute cholecystitis - medically necessary treatment spanning more than 2 midnights, maintain patient inpatient status.
[2023-05-26] MEDS: ENSURE HP 237 ML LIQUID PO ×2 (08:26→21:35)
[2023-05-26] MEDS: PROSTAT 15 GM PROTEIN/100 CAL 30 ML LIQUID PACKET PO ×2 (08:26→21:35)
[2023-05-26] MEDS: POTASSIUM CHLORIDE 10 MEQ ER TABLET PO ×2 (08:26→21:36)
[2023-05-26] MEDS: LEVOFLOXACIN IN DEXTROSE 5 % 750 MG/150 ML IV.SOLN 100 MG IV (08:27)
[2023-05-26] MEDS: CARVEDILOL 6.25 MG TABLET PO ×2 (08:27→16:26)
--- NOTE | 2023-05-26 09:35 | PT.DAILY ---
Physical Therapy Daily Note PT Daily Note/Assess Start: 05/26/23 09:27 Freq: Status: Active Protocol: Document 05/26/23 09:28 DEVEN (Rec: 05/26/23 09:35 DEVEN [id number]) Physical Therapy Daily Note/Assessment Time In/Time Out Time In 09:13 Time Out 09:27 Pain In Pain N/A Pain Out Pain N/A Subjective Subjective Pt supine upon arrival. Reports he missed a dosage of pain medication last night and could really tell. Has since been medicated and pain is under control - 05/13. Therapeutic Exercise Time Therapeutic Exercise Minutes (minutes) 3 Therapeutic Exercise Units 0 Therapeutic Exercise Treatment Therapeutic Exercise Treatment Seated EOB to complete bilat AP, LAQ, and marches 10x ea to improve functional mobility prior to gait. Therapeutic Activity Time Therapeutic Activity Minutes (minutes) 10 Therapeutic Activity Units 1 Therapeutic Activity Treatment Bed Mobility Ability Standby Assistance Chair Transfer Ability Contact Guard Assist Therapeutic Activity Comments Supine>sit SBA with increased time to advance his upper body to sit EOB. Sits EOB unsupported to complete bilat LE strengthening ex without LOB. Sit>stand to RW CGA for safety. Pt amb 120' down to therapy office where he completes stair training. up/ down 8 steps with bilat UE support and reciprocal step pattern. Amb with RW 200' in [place]iver[place] - slow sukhwinder. Stands to use restroom when returned to room - no LOB. Returned to supine SBA. Remains supine upon completion with call light in reach and needs met. Total Physical Therapy Time Total Therapy Minutes 13 Total Physical Therapy Units 1 Summary Daily Note Summary Improved gait endurance and stability with gait while using RW. Demonstrates decreased sukhwinder but is steady - Fair+ dynamic standing balance. Min fatigue upon completion but denies increase in pain.
[2023-05-26] MEDS: BENZONATATE 100 MG CAPSULE 200 MG PO (10:41)
--- NOTE | 2023-05-26 11:00 | XR_ITS ---
The [address] [address] Patient Name: ABIGAIL BIRMINGHAM MRN: [id number] date: 1945 Sex: M Assigned Patient Location: [place] Current Patient Location: [place] Accession/Order Number: [id number] Exam Date: 05/26/2023 10:58 Report Date: 05/26/2023 11:27 At the request of: BI PORTILLO Procedure: XR chest 2V EXAMINATION: XR chest 2V HISTORY: pleural effusion COMPARISON: XR chest 05/25/2023 FINDINGS: LUNGS: Underexpanded lungs with mild opacities within posterior lung bases seen on the lateral view. VASCULATURE: No increased pulmonary vasculature. PLEURA: Mild blunting of costophrenic angle suggesting pleural fluid. CARDIAC: No cardiomegaly or cardiac silhouette abnormality. MEDIASTINUM: No visible mass or adenopathy. BONES: No fracture or visible bone lesion. OTHER: Negative. XR/XR chest 2V IMPRESSION: 1. Suspect small bilateral pleural effusion and mild bibasilar infiltrates versus atelectasis; stable to slightly improved. Electronically authenticated by: ZULEMA HENDRICKSON Date: 05/26/2023 11:27
[2023-05-26] MEDS: SODIUM CHLORIDE 0.9% INHALATION 3 ML NEB 6 ML IH ×2 (11:10→17:05)
[2023-05-26] MEDS: ACETAMINOPHEN 500 MG TABLET 1000 MG PO (21:35)
[2023-05-26] MEDS: ERTAPENEM SODIUM 1 GM in 0.9 % SODIUM CHLORIDE 50 ML IV (21:36)
[2023-05-26] MEDS: PANTOPRAZOLE SODIUM 40 MG VIAL IV (21:40)
--- NOTE | 2023-05-26 22:32 | RESP.RT ---
Pt requested breathing tx to be given with aerogen instead of IPV.
[2023-05-27] VITALS (9 sets, daily range): BP systolic 153–174; BP diastolic 80–97; PULSE 80–94; RESP 16–20; TEMP 36.6–37.3; O2SAT 89–100
[2023-05-27 04:24] LABS: Bilirubin Urine NEGATIVE (NEGATIVE); Blood Urine NEGATIVE (NEGATIVE); Clarity Urine CLEAR (CLEAR); Color Urine YELLOW (YELLOW); Glucose Urine UA NEGATIVE (NEGATIVE); Ketones Urine NEGATIVE (NEGATIVE); Leukocyte Esterase Urine NEGATIVE (NEGATIVE); Nitrite Urine NEGATIVE (NEGATIVE); Protein Urine 30 mg/dL (NEG/TRACE); Specific Gravity Urine 1.025 (1.005-1.025); pH Urine 5.5 (5.0-9.0)
[2023-05-27 04:32] LABS: Urine Microscopic Indicated YES
[2023-05-27 04:35] LABS: Bacteria Urine NONE SEEN #/HPF (NONE SEEN); Cast Seen? NONE SEEN #/LPF (NONE SEEN); Crystals Seen? None Seen #/HPF (None Seen); Mucus Urine SMALL (NONE SEEN); RBC Urine 0-2 #/HPF (0-2); Squamous Epithelial Cell Urine NONE SEEN #/LPF (NONE/RARE); Urine Culture Indicated NO; WBC Urine 0-2 #/HPF (NONE SEEN)
[2023-05-27] MEDS: IPRATROPIUM/ALBUTEROL SULFATE 3 ML AMPUL.NEB IH ×2 (04:51→10:23)
--- NOTE | 2023-05-27 04:51 | RESP.RT ---
Pt requested breathing tx to be given with aerogen instead of IPV this morning.
[2023-05-27 05:19] LABS: Basophils Percent Auto 0.1 % (0.2-2.0); Eosinophils Absolute Auto 0.2 10^3/uL (0.0-0.7); Hematocrit 40.9 % (42.0-54.0); Hemoglobin 13.2 g/dL (14.0-18.0); Immature Granulocytes Abs Auto 0.02 10^3/uL (0.00-0.03); Immature Granulocytes Pct Auto 0.3 % (0.0-0.5); Lymphocytes Percent Auto 13.5 % (20.5-60.0); Mean Corpuscular HGB Conc 32.3 g/dL (29.9-35.2); Mean Corpuscular Hemoglobin 28.6 pg (25.9-34.0); Mean Corpuscular Volume 88.7 fL (80.0-94.0); Mean Platelet Volume 9.3 fL (9.5-13.5); Monocytes Absolute Auto 0.9 10^3/uL (0.3-0.8); Neutrophils Percent Auto 70.1 % (43.0-75.0); Platelet Count 222 10^3/uL (150-450); Red Blood Count 4.61 10^6/uL (4.70-6.10); White Blood Count 7.1 10^3/uL (4.0-11.0)
[2023-05-27 05:40] LABS: Alanine Aminotransferase 19 U/L (16-63); Albumin Globulin Ratio 0.5; Albumin Level 1.9 g/dL (3.4-5.0); Alkaline Phosphatase 101 U/L (46-116); Anion Gap 10.6; Aspartate Amino Transferase 17 U/L (15-37); BUN Creatinine Ratio 26.5; Bilirubin Total 0.6 mg/dL (0.2-1.0); Calcium 8.2 mg/dL (8.5-10.1); Carbon Dioxide 26.8 mmol/L (21.0-32.0); Chloride 105 mmol/L (98-107); Estimated GFR (African America >60 (>=60); Estimated GFR (Non-African Ame >60 (>=60); Globulin 4.1 g/dL; Glucose 93 mg/dL (74-106); Potassium 3.4 mmol/L (3.5-5.1); Sodium 139 mmol/L (136-145)
--- NOTE | 2023-05-27 08:52 | PM.GSPN ---
Progress Note: A&P Assessment and Plan (1) Acute cholecystitis: (2) High cholesterol: Plan will sign off case and patient should follow-up in the office in one to two weeks Subjective Subjective Patient reports: no new complaints and still having pain (only when coughing) Interval history: postop day #3robotic cholecystectomy for gangrenous cholecystitis Patient only having pain when coughing. He is passing flatus and tolerating a regular diet. He wants to go home. He coughed in the room and sounds like he could have a pneumonia or bronchitis. Exam Constitutional Vital Signs, click to edit/add: Last Vital Signs Temp 99.1 F 05/27/23 08:00 Pulse 88 05/27/23 08:00 Resp 20 05/27/23 08:00 BP 172/97 H 05/27/23 08:00 Pulse Ox 89 L 05/27/23 08:00 O2 Del Method Room Air 05/27/23 08:00 O2 Flow Rate 1 05/26/23 05:51 GI Common normals: Normal to inspection, nondistended, normoactive bowel sounds present, soft to palpation and non-tender (incisions clean dry and intact)
--- NOTE | 2023-05-27 09:05 | P.DS_ITS ---
DS: Providers Provider Date of admission: 05/24/23 07:20 Primary care physician: ZACHARY SHANNON Admitting clinician: Joshua Muñiz Consults: 05/23/23 21:02 Consult to General Surgeon Routine Consulting Provider: Jeronimo Lyon Reason for consultation: acute cholecystitis Has provider been notified: Yes 05/24/23 07:23 Occupational Therapy Eval and Treat Routine Reason for consultation: Only if needed for Rehab Has provider been notified: No Physical Therapy Eval and Treat Routine Reason for consultation: Eval and Treat Has provider been notified: No Attending physician on discharge: Lakeisha Dc DS: Diagnosis Discharge Diagnosis (1) Acute cholecystitis: (2) High cholesterol: (3) Hypertension: (4) Hypokalemia: DS: Summary Hospital Course Hospital Course: patient is a 77-year-old gentleman who presented to the Emergency Room on 05/24/23 he was found to have acute cholecystitis. Patient was taken to the OR that day for a laparoscopic cholecystectomy. Patient was also septic upon presentation he was started on IV Levaquin and Invanz. Postoperatively patient developed an ileus which has also resolved. Patient is afebrile at the time of discharge, white blood cell count is within normal range, patient is no longer having any abdominal discomfort. Patient is Pat passing flatulence. He will have close follow-up with his primary care physician to discuss his hypertension but will be placed on Coreg, potassium and Levaquin 500 mg daily for seven days. He will also have a follow up with Dr. Lyon of general surgery. He is to return to the Emergency Room with any worsening signs or symptoms. Status at Discharge Functional status at discharge: independent ambulation Overall status at discharge: patient is progressing back to baseline Time Spent with Patient Time attestation: Total time spent providing and/or coordinating discharge services: Time spent: greater than 30 minutes Exam Narrative Exam Narrative: General: Patient is alert, and oriented to person, place and time with normal affect, proper hygiene Skin: no visible rashes, or ulcers Head: atraumatic, acephalic Eyes: PERRLA, no nystagmus present, conjunctiva clear, no scleral icterus Ears: normal gross auditory acuity Heart: Normal rate and rhythm, no murmurs/rubs/gallops Lungs: no audible wheezes, crackles and normal breath sounds all lung trevino Abdomen: Normal audible bowel sounds, no distension, No palpable masses, no organomegaly, no rebound/guarding/ or rigidity Musculoskeletal: no swelling bilateral lower extremities Constitutional Vital Signs, click to edit/add: Last Vital Signs Temp 99.1 F 05/27/23 08:00 Pulse 88 05/27/23 08:00 Resp 20 05/27/23 08:00 BP 172/97 H 05/27/23 08:00 Pulse Ox 89 L 05/27/23 08:00 O2 Del Method Room Air 05/27/23 08:00 O2 Flow Rate 1 05/26/23 05:51 DS: Data Data Completed and Pending Labs on day of discharge: Labs from last 24 hours 05/27/23 05/27/23 04:26 04:15 WBC 7.1 RBC 4.61 L Hgb 13.2 L Hct 40.9 L MCV 88.7 MCH 28.6 MCHC 32.3 RDW 13.0 Plt Count 222 MPV 9.3 L Neut % (Auto) 70.1 Lymph % (Auto) 13.5 L [place] % (Auto) 13.0 H Eos % (Auto) 3.0 Baso % (Auto) 0.1 L Neut # (Auto) 5.0 Lymph # (Auto) 1.0 L [place] # (Auto) 0.9 H Eos # (Auto) 0.2 Baso # (Auto) 0.0 Abs Immat Gran (auto) 0.02 Imm/Tot Granulo (auto) 0.3 Sodium 139 Potassium 3.4 L Chloride 105 Carbon Dioxide 26.8 Anion Gap 10.6 BUN 27.0 H Creatinine 1.02 Est GFR ( Amer) >60 Est GFR (Non-Af Amer) >60 BUN/Creatinine Ratio 26.5 Glucose 93 Calcium 8.2 L Total Bilirubin 0.6 AST 17 ALT 19 Alkaline Phosphatase 101 Total Protein 6.0 L Albumin 1.9 L Globulin 4.1 Albumin/Globulin Ratio 0.5 Urine Color Yellow Urine Clarity Clear Urine pH 5.5 Ur Specific [place] 1.025 Urine Protein 30 A Urine Glucose (UA) Negative Urine Ketones Negative Urine Occult Blood Negative Urine Nitrite Negative Urine Bilirubin Negative Urine Urobilinogen 1.0 Ur Leukocyte Esterase Negative Urine RBC 0-2 Urine WBC 0-2 A Ur Squamous Epith Cells None seen Urine Crystals None seen Urine Bacteria None seen Urine Casts None seen Urine Mucus Small A Ur Culture Indicated? No Preliminary micro results at discharge 05/24/23 07:52 - Preliminary Blood NO GROWTH AT 36-48 HOURS. FINAL TO FOLLOW. 05/24/23 07:48 Blood Culture Result 1 - Preliminary Blood NO GROWTH AT 36-48 HOURS. FINAL TO FOLLOW. Discharge Plan Discharge Disposition: Home, Self-Care Condition: Fair Discharge Medications: New carvedilol 6.25 mg Tablet 6.25 mg PO BIDWM 7 Days Qty: 14 0RF potassium chloride 10 mEq Tablet,Er Particles/Crystals 10 meq PO BID 7 Days Qty: 14 0RF levofloxacin 500 mg tablet 500 mg PO DAILY 7 Days Qty: 7 0RF Continued simvastatin 20 mg tablet 40 mg PO DAILY Activity: increase activity as tolerated Diet: advance to your usual diet Print Language: Surinamese Patient Instructions: Laparoscopic Cholecystectomy (DC) Forms: Portal Instructions Follow Up Appointments: follow up with pcp 5-7 days, will need recheck on BP and labs (bmp) Discharge Date/Time: 05/27/23 15:24
[2023-05-27] MEDS: PROSTAT 15 GM PROTEIN/100 CAL 30 ML LIQUID PACKET PO (09:22)
[2023-05-27] MEDS: CARVEDILOL 6.25 MG TABLET PO (09:22)
[2023-05-27] MEDS: POTASSIUM CHLORIDE 10 MEQ ER TABLET PO (09:22)
[2023-05-27] MEDS: ENSURE HP 237 ML LIQUID PO (09:22)
[2023-05-27] MEDS: LEVOFLOXACIN IN DEXTROSE 5 % 750 MG/150 ML IV.SOLN 100 MG IV (10:05)
[2023-05-27] MEDS: DOCUSATE SODIUM 100 MG CAPSULE PO (10:05)
[2023-05-27] MEDS: POLYETHYLENE GLYCOL 3350 17 GM POWDER PACKET PO (10:05)
[2023-05-27] MEDS: SODIUM CHLORIDE 0.9% INHALATION 3 ML NEB 6 ML IH (10:27)
--- NOTE | 2023-05-27 11:38 | PT.DAILY ---
Physical Therapy Daily Note PT Daily Note/Assess Start: 05/26/23 09:27 Freq: Status: Active Protocol: Document 05/27/23 10:55 GENNA (Rec: 05/27/23 11:38 GENNA [id number]) Physical Therapy Daily Note/Assessment Time In/Time Out Time In 10:55 Time Out 11:10 Subjective Subjective No complaints, just some SOB and pain when I hiccup. Thought I was leaving today but now unsure. Therapeutic Exercise Time Therapeutic Exercise Minutes (minutes) 5 Therapeutic Exercise Units 0 Therapeutic Exercise Treatment Therapeutic Exercise Treatment Standing exercises at skin 10x with TR/HR and Marches. 5x with hip abduction, hip ext, and HS curl. Therapeutic Activity Time Therapeutic Activity Minutes (minutes) 10 Therapeutic Activity Units 1 Therapeutic Activity Treatment Bed Mobility Ability Independent Chair Transfer Ability Standby Assistance Therapeutic Activity Comments Initial posterior LOB with standing but able to self correct/SBA from therapist. Gait 150' with RW SBA. No LOB with gait. Fatigue noted. Total Physical Therapy Time Total Therapy Minutes 15 Total Physical Therapy Units 1 Summary Daily Note Summary Progressed with standing exercises to increase B LE strength. Fatigues quickly with exercise and gait. Aside from initial LOB that patient was able to self correct with RW there was not LOB with exercises or gait. Recommended OP PT at DC but patient continues to think this will not be needed, but does verbalize understanding of how to obtain order from family MD if he changes his mind.
--- NOTE | 2023-05-27 11:54 | PC.NURSE ---
refused to order lunch at this time.
--- NOTE | 2023-05-27 14:26 | PC.NURSE ---
Requested Zandra Mckinnon RN to assist with printing of discharge instructors d/t insurance underwriter sales not being able to print off to [facility]
--- NOTE | 2023-05-29 16:24 | CM.DCFOLLOWU ---
Person spoke with: patient How are you feeling? comfortable How is your pain? comfortable Did you understand your discharge instructions? yes- Do you have any questions about your discharge instructions? no Were you given any prescriptions at discharge? yes Were you able to get your prescriptions filled? yes Do you understand how to take your medications as ordered? yes Do you have any questions about your follow up appointment and do you plan to keep your follow up appointment? no questions, was able to schedule follow up Is there anything else that you would like to discuss? no Questions/Comments/Concerns/Other: N/A
== END 2023-05-27 15:24 | disposition home or self-care (01) | DRG 853 ==
LOC: ER 21:21 → MS 21:47
PROVIDERS: Surgery; Admitting Provider Family Medicine; Emergency Provider Emergency Medicine; PCP Nurse Practitioner Family; Visit Provider Family Medicine
PROC: 0FT44ZZ Resection of Gallbladder, Percutaneous Endoscopic Approach (ICD-10-PCS; principal; 2023-05-24 09:15)
DX: A41.9 Sepsis, unspecified organism (principal); E43 Unspecified severe protein-calorie malnutrition; E87.1 Hypo-osmolality and hyponatremia; D62 Acute posthemorrhagic anemia; K80.00 Calculus of gallbladder with acute cholecystitis without obstruction; K56.7 Ileus, unspecified; J98.11 Atelectasis; J90 Pleural effusion, not elsewhere classified; R65.20 Severe sepsis without septic shock; I10 Essential (primary) hypertension; E86.0 Dehydration; E78.00 Pure hypercholesterolemia, unspecified; K82.A1 Gangrene of gallbladder in cholecystitis; R06.03 Acute respiratory distress; E80.6 Other disorders of bilirubin metabolism; D72.829 Elevated white blood cell count, unspecified; E87.6 Hypokalemia; Z79.899 Other long term (current) drug therapy; Z90.89 Acquired absence of other organs; Z68.25 Body mass index [BMI] 25.0-25.9, adult
CPT/HCPCS: 36415; 71046; 74176; 80053; 81001; 82140; 82150; 82248; 83605; 83690; 84484; 85007; 85025; 85027; 85610; 85730; 87040; 88304; 93005; 94640; 94667; 94668; 94761; 96365; 96366; 96367; 96375; 96376; 97161; 97165; 97530; 97535; 99285; 99999; G0378; J1170; J1335; J2704

== ENCOUNTER 2023-06-14 06:57 | Outpatient (OUT) | payer MEDICARE, SELFPAY ==
[2023-06-14 07:27] LABS: Basophils Percent Auto 0.5 % (0.2-2.0); Eosinophils Absolute Auto 0.2 10^3/uL (0.0-0.7); Eosinophils Percent Auto 3.2 % (0.9-7.0); Hematocrit 39.6 % (42.0-54.0); Hemoglobin 12.6 g/dL (14.0-18.0); Immature Granulocytes Abs Auto 0.02 10^3/uL (0.00-0.03); Immature Granulocytes Pct Auto 0.3 % (0.0-0.5); Lymphocytes Absolute Auto 1.2 10^3/uL (1.2-3.8); Lymphocytes Percent Auto 19.9 % (20.5-60.0); Mean Corpuscular HGB Conc 31.8 g/dL (29.9-35.2); Mean Corpuscular Hemoglobin 28.2 pg (25.9-34.0); Mean Corpuscular Volume 88.6 fL (80.0-94.0); Monocytes Absolute Auto 0.8 10^3/uL (0.3-0.8); Monocytes Percent Auto 12.3 % (1.7-12.0); Neutrophils Absolute Auto 3.9 10^3/uL (1.4-6.5); Neutrophils Percent Auto 63.8 % (43.0-75.0); Platelet Count 391 10^3/uL (150-450); Red Blood Count 4.47 10^6/uL (4.70-6.10); Red Cell Distribution Width 13.5 % (11.0-15.0); White Blood Count 6.2 10^3/uL (4.0-11.0)
[2023-06-14 07:43] LABS: Estimated Average Glucose 126 mg/dL
[2023-06-14 08:58] LABS: Alanine Aminotransferase 52 U/L (16-63); Albumin Globulin Ratio 0.4; Albumin Level 1.9 g/dL (3.4-5.0); Alkaline Phosphatase 560 U/L (46-116); Anion Gap 12.9; Aspartate Amino Transferase 65 U/L (15-37); BUN Creatinine Ratio 18.7; Bilirubin Total 0.6 mg/dL (0.2-1.0); Calcium 8.9 mg/dL (8.5-10.1); Carbon Dioxide 28.6 mmol/L (21.0-32.0); Chloride 104 mmol/L (98-107); Chol HDL Ratio 3.4; Cholesterol 129 mg/dL (<=200); Estimated GFR (African America >60 (>=60); Estimated GFR (Non-African Ame >60 (>=60); Globulin 5.2 g/dL; Glucose 93 mg/dL (74-106); HDL Cholesterol 38 mg/dL (40-60); Potassium 3.5 mmol/L (3.5-5.1); Sodium 142 mmol/L (136-145); Thyroid Stimulating Hormone 2.982 uIU/mL (0.358-3.740); Total Protein 7.1 g/dL (6.4-8.2); Triglycerides 71 mg/dL (<=150); Uric Acid 3.3 mg/dL (3.5-7.2); VLDL CHOLESTEROL 14.2 mg/dL
[2023-06-14 09:09] LABS: Prostate Specific Antigen Scrn 9.38 ng/mL (<=4.00)
[2023-06-15 09:08] LABS: Insulin 6.3 uIU/mL (2.6-24.9)
[2023-06-16 04:09] LABS: PSA, Free 1.31 ng/mL
== END 2023-06-14 06:58 | disposition home or self-care (01) ==
LOC: LAB 06:59
PROVIDERS: PCP Nurse Practitioner Family; Visit Provider Nurse Practitioner Family
DX: E78.5 Hyperlipidemia, unspecified (principal); Z12.5 Encounter for screening for malignant neoplasm of prostate; R53.83 Other fatigue; I10 Essential (primary) hypertension; R73.09 Other abnormal glucose; M25.50 Pain in unspecified joint; M19.90 Unspecified osteoarthritis, unspecified site
CPT/HCPCS: 36415; 80053; 80061; 83036; 83525; 84153; 84154; 84436; 84443; 84481; 84550; 85025; G0103

== ENCOUNTER 2023-06-16 08:40 | Outpatient (OUT) | payer MEDICARE, SELFPAY ==
[2023-06-16 09:47] LABS: Alanine Aminotransferase 49 U/L (16-63); Albumin Globulin Ratio 0.4; Albumin Level 2.1 g/dL (3.4-5.0); Alkaline Phosphatase 550 U/L (46-116); Anion Gap 12.8; Aspartate Amino Transferase 66 U/L (15-37); BUN Creatinine Ratio 17.1; Bilirubin Total 0.5 mg/dL (0.2-1.0); Calcium 8.8 mg/dL (8.5-10.1); Chloride 106 mmol/L (98-107); Estimated GFR (African America >60 (>=60); Estimated GFR (Non-African Ame >60 (>=60); Globulin 4.8 g/dL; Glucose 121 mg/dL (74-106); Potassium 3.8 mmol/L (3.5-5.1); Sodium 144 mmol/L (136-145); Total Protein 6.9 g/dL (6.4-8.2)
== END 2023-06-16 08:41 | disposition home or self-care (01) ==
LOC: LAB 08:41
PROVIDERS: PCP Nurse Practitioner Family; Visit Provider Nurse Practitioner Family
DX: K81.9 Cholecystitis, unspecified (principal); R97.20 Elevated prostate specific antigen [PSA]
CPT/HCPCS: 36415; 80053

== ENCOUNTER 2023-06-27 08:18 | Outpatient (OUT) | payer MEDICARE, SELFPAY ==
--- NOTE | 2023-06-27 08:20 | US_ITS ---
The [address] [address] Patient Name: ABIGAIL BIRMINGHAM MRN: [id number] date: 1945 Sex: M Assigned Patient Location: [place] Current Patient Location: [place] Accession/Order Number: [id number] Exam Date: 06/27/2023 08:21 Report Date: 06/27/2023 09:25 At the request of: ZACHARY SHANNON Procedure: US right upper quadrant EXAM: US right upper quadrant HISTORY: Abnormal Findings Of Blood Chemistry R79.99 COMPARISON: 05/23/2023 CT exam TECHNIQUE: Grayscale and color ultrasound FINDINGS: Liver is normal in contour. Identified in the region of the right hepatic lobe is a 17.0 x 15.0 x 12.1 cm cystic lesion with irregular margins and low level internal echoes, I cannot determine if this is an extrinsic compressing the liver or subcapsular and within the hepatic parenchyma. The gallbladder is surgically absent. The common bile duct is not definitively seen The visualized pancreas is normal. The pancreas is poorly visualized due to bowel gas The right kidney measures 8.8 x 6.2 x 5.8 cm. Mild pelviectasis Small amount of free fluid Call results initiated through operations at the time of dictation US/US right upper quadrant IMPRESSION: 17 cm cystic mass within or compressing the right hepatic lobe of unknown etiology. Consider a biloma. CT scan without and with contrast is recommended for further evaluation Electronically authenticated by: PAIGE JAIN Date: 06/27/2023 09:25
== END 2023-06-27 08:19 | disposition home or self-care (01) ==
LOC: US 08:18
PROVIDERS: PCP Nurse Practitioner Family; Visit Provider Nurse Practitioner Family
DX: R79.89 Other specified abnormal findings of blood chemistry (principal); K76.89 Other specified diseases of liver
CPT/HCPCS: 76705

== ENCOUNTER 2023-07-11 14:11 | Outpatient (OUT) | payer MEDICARE, SELFPAY ==
[2023-07-12 04:07] LABS: PSA, Free 0.58 ng/mL; Prostate Specific Ag 2.5 ng/mL (0.0-4.0)
== END 2023-07-11 14:12 | disposition home or self-care (01) ==
LOC: LAB 14:15
PROVIDERS: PCP Nurse Practitioner Family; Visit Provider Nurse Practitioner Family
DX: N41.0 Acute prostatitis (principal)
CPT/HCPCS: 36415; 84153; 84154

== ENCOUNTER 2023-07-15 08:50 | Outpatient (OUT) | payer MEDICARE, SELFPAY ==
--- OUTSIDE RECORDS SUMMARY | 2023-07-15 08:54 | XMS_ITS | CCD ---
Author Organization [facility] Care Team Providers Care News Librarian Name Role Phone Luiz Jimenez Unavailable REVA SHANNON Admitting Unavailable REVA SHANNON Attending Unavailable MADHAVI, DR DEEP Obando Consulting Unavailable REVA SHANNON Primary Care Unavailable REVA SHANNON Consulting Unavailable REVA SHANNON Attending Unavailable REVA SHANNON Consulting Unavailable REVA SHANNON Primary Care Unavailable REVA SHANNON Admitting Unavailable SHIVA, REVA Primary Care Unavailable LINDSEY ., DR PAT Admitting Unavailable LINDSEY ., DR PAT Attending Unavailable LINDSEY ., DR PAT Consulting Unavailable MADHAVI, DR DEEP Obando Consulting Unavailable DO Jeronimo Lyon Attending Provider [phone] Jeronimo Lyon Attending Unavailable Jeronimo Lyon Admitting Unavailable Unavailable Primary Care Provider UnavailReva Monroe Primary Care Provider EL MCCABE Attending Unavailable REVA SHANNON Referring Unavailable REVA SHANNON Primary Care Unavailable REVA SHANNON Primary Care Physician Jeronimo HENRY Attending Unavailable REVA SHANNON S Referring Unavailable Allergies Allergy Classification Reported Allergen(s) Allergy Type Date of Onset Reaction(s) Facility (1 source) No Known Medication Allergies; Translations: [No Known Medication Allergies] Propensity to adverse reactions (disorder) [facility] Repository Medications Current Medications Medication Drug Class(es) Dates Sig (Normalized) Sig (Original) naproxen sodium 220 mg oral tablet (1 source) Nonsteroidal Anti-inflammatory Drug take 1 tablet by mouth every four hours as needed for pain naproxen sodium (ALEVE) 220 mg tablet Take 1 tablet (220 mg total) by mouth every 4 (four) hours as needed for pain. 0 Active simvastatin 20 mg oral tablet (2 sources) HMG-CoA Reductase Inhibitor Start: 06-28-2023 take 1 tablet by mouth once daily in the evening simvastatin 20 mg Tab 20 mg = 1 tab(s), Oral, qPM, Refills(s) 0 Start Date: 06/28/23 Status: Ordered take 1 tablet by mouth in the mo rning simvastatin (ZOCOR) 20 mg tablet Take 1 tablet (20 mg total) by mouth in the morning. 0 Active Problems Active Problems Problem Classification Problem Date Documented Da te Episodic/Chronic Anxiety disorders (1 source) Anxiety 06-28-2023 Chronic Diabetes mellitus without complication (4 sources) Hyperglycemia, unspecified; Translations: [HYPERGLYCEMIA UNSPECIFIED] Onset: 05-18-2022 Episodic Disorders of lipid metabolism (2 sources) Hyperlipidemia, unspecified; Translations: [Hyperlipidemia] Onset: 06-10-2022 06-28-2023 Chronic Diverticulosis and diverticulitis (1 source) Diverticulosis of sigmoid colon 06-28-2023 Chronic Immunizations and screening for infectious disease (1 source) Encounter for immunization; Translations: [Encounter For Immunization] Onset: 05-07-2020 Episodic Nonspecific chest pain (4 sources) Other chest pain; Translations: [OTHER CHEST PAIN] Onset: 06-06-2022 Episodic Other aftercare (1 source) History of repair of umbilical hernia; Translations: [Encounter for follow-up examination after completed treatment for conditions other than malignant neoplasm] 06-06-2023 Episodic Other aftercare (1 source) Encounter for follow-up examination after completed treatment for conditions other than malignant neoplasm; Translations: [Encounter for follow-up examination after completed treatment for conditions other than malignant neoplasm] Onset: 06-07-2023 Episodic Other gastrointestinal disorders (1 source) Abnormal feces; Translations: [Other fecal abnormalities] Onset: 07-11-2023 Episodic Other nutritional; endocrine; and metabolic disorders (1 source) Overweight 06-28-2023 Episodic Other nutritional; endocrine; and metabolic disorders (1 source) Overweight in adulthood with body mass index of 25 or more but less than 30 07-11-2023 Episodic Other screening for suspected conditions (not mental disorders or infectious disease) (2 sources) Encounter for screening for malignant neoplasm of prostate; Translations: [Stool DNA-based colorectal cancer screening positive] Onset: 05-19-2022 06-28-2023 Episodic Residual codes; unclassified (1 source) Acquired absence of other specified parts of digestive tract; Translations: [Acquired absence of other specified parts of digestive tract] Onset: 06-07-2023 Episodic Unclassified (1 source) Post-op Onset: 06-07-2023 Past or Other Problems Problem Classification Problem Date Documented Da te Episodic/Chronic Other diseases of veins and lymphatics (4 sources) Scrotal varices; Translations: [SCROTAL VARICES] Onset: 11-18-2021 Episodic Results Test Name Value Interpretation Reference Range Facility Consent for Procedure/Surger yon 07-12-2023 Consent for Procedure/Surgery [id number] Cam [facility] Ambulatory Visit Summaryon 0 07-11-2023 Ambulatory Visit Summary ABIGAIL WASHINGTON :1945 Visit Date:07/11/2023 Ambulatory Visit Instructions Your Diagnosis Positive colorectal cancer screening using Cologuard test Your Care Team Attending Physician - Jeronimo HENRY MD Primary Care Physician - REVA SHANNON CNP Referring Physician - REVA SHANNON CNP This Is Your Medications List Contact prescribing physician if questions or concerns simvastatin (simvastatin 20 mg Tab) Procedures Performed Colonoscopy (09/23/2015), EGD - esophagogastroduodenoscopy (09/23/2015), Cholecystectomy, Excision of basal cell carcinoma, Excision of squamous cell carcinoma, Repair of umbilical hernia, Tonsillectomy. Discharge Vitals Heart Rate (Peripheral) 72 Respiratory Rate 16 Blood Pressure 126/80 Height 170 cm Height 67 in Weight 68.9 kg Weight 151.58 lb BMI 23.84 Medications What How Much When Instructions Unchanged simvastatin (simvastatin 20 mg Tab) 1 Tablets By Mouth Once a day (in the evening) Contact prescribing physician if questions or concerns Allergies No Known Allergies No Known Medication Allergies Problems Ongoing - Any problem that you are currently receiving treatment for. Anxiety Hyperlipidemia Overweight Positive colorectal cancer screening using Cologuard test Sigmoid diverticulosis Historical - Any problem that you are no longer receiving treatment for. BMI 25.0-25.9,adult Patient Survey You may receive a survey via text or e-mail asking about your office visit. Please share your experience with us by completing your survey. We appreciate your feedback and thank you for choosing us for your care. Normal [facility] Facesheeton 07-11-2023 Facesheet [id number] Normal [facility] Physician Referralon 024 Physician Referral [id number] Normal [facility] Multiple labson 05-27-2023 [facility] Surgical Pathologyon 024 [facility] Leonides 05-24-2023 L Specimen: [id number] R eceived: 05/25/23 Status: BRENT Galloway Num: [id number] Spec Type: Surgical Subm Dr: Jeronimo Lyon DO Tissues: A Gallbladder (GALLBLADDER) Procedures: HE, Gross/Micro L3 Age/ Patient Sex Location Account Attending Physician Abigail Washington 77/M LABELL [id number] Jeronimo Lyon DO SPEC NUM: [id number] RECD: 05/25/23 STATUS: BRENT GALLOWAY NUM: [id number] DAMARI: 05/24/[address]: Jeronimo Lyon DO ENTERED: 05/25/23 [facility] DR: Gonzalez Lazaro SPEC TYPE: Surgical DEPT: [facility] ORDERED: HE, Gross/Micro L3 ORDERED: HE, Gross/Micro L3 Pathological Diagnosis Gallbladder, Cholecystectomy: Acute Suppurative Cholecystitis And Cholelithiasis. Clinical Information Chest pain, acute cholecystitis Gross Description Received in formalin labeled with the patient's name, date of and gallbladder is a 10.0 x 4.5 x 3.5 cm previously incised gallbladder with a mottled, purple-pink to de jesus-coughlin serosa. The average wall thickness is 0.7 cm. The lumen contains minimal bile and multiple (approximately 20) black choleliths measuring up to 1.5 cm. The mucosa is mottled, red- brown to green-de jesus and denuded. . Labor Relations Officer sections are submitted in one cassette labeled A1. CPT Codes 23425 ----- ----- Specimen: [id number] Received: 05/25/23 Status: BRENT Galloway Num: [id number] Spec Type: Surgical Subm Dr: Jeronimo Lyon DO Tissues: A Gallbladder (GALLBLADDER) Procedures: Obdulio BAZAN/Micky L3 ----- Patient: Abigail Washington [id number] (Continued) ----- Signed (signature on file) Nikita Dunne MD 05/26/23 1220 [facility] NM STRESS/REST MULTIon 06-06 NM STRESS/REST MULTI Patient: ABIGAIL WASHINGTON Exam Date: 06/06/2022 : 1945 Gender:M Ordering : REVA SHANNON [facility] Admission #: [id number] Family : Order #: [id number] CLICK HERE TO VIEW EXAM RADIOLOGY REPORT PROCEDURE: RADIONUCLIDE IMAGING STRESS/REST MULTI COMPARISON: None. INDICATIONS: Chest pain TECHNIQUE: Exam Description: Stress/Rest one day protocol gated SPECT Rest Imagin.9 mCi Tc-99m Cardiolite IV on 06/06/2022 Stress Imaging 30.4 mCi Tc-99m Cardiolite IV on 06/06/2022 Exercise Protocol: Ino Heart Rate (bpm): Rest: 62 Max: 127 PMHR: 87 Blood Pressure: Rest: 158/96 Max: 200/98 Exercise Time: Minutes: 8 Seconds: 29 Stage Reached: Stage: 3 Mets 10.1 Symptoms: Rest and peak stress ECG findings were normal and the exercise portion of the study was normal per attending physician Dr. Richard . For more details please see separate cardiac stress test report. FINDINGS: QUALITY OF STUDY: Excellent. PERFUSION DEFECT: None. LOCATION: N/A SIZE: N/A. SEVERITY: N/A. TYPE: N/A. WALL MOTION: Normal. LV SIZE: Normal. 57 mL. TID / TCD: None; 0.7 LVEF: Normal. Calculated EF 77%. SUMMARY: Myocardial perfusion imaging study is NORMAL. CONCLUSION: 1. Normal nuclear medicine myocardial perfusion scan. Dictated by: Deep Hoyos M.D. on 06/07/2022 at 07:04 Approved by: Deep Hoyos M.D. on 06/07/2022 at 07:05 Normal [facility] INSULINon 05-19-2022 Insulin 11.6 uIU/mL Normal 2.6-24.9 [facility] Comment on above: Performed By: #### I NSULIN #### [facility] [address] [place] [address] Dr. Karely Perkins CBC AUTO DIFFon 05-18-2022 BASO # 0.0 103/ul Normal 0.0-0.1 [facility] Comment on above: Performed By: #### C BC #### [facility] [address] [place] [address] Dr. Karely Perkins Basophils/100 WBC (Bld) 0.6 % Normal 0.2-2.0 [facility] Comment on above: Performed By: #### C BC #### [facility] [address] [place] [address] Dr. Karely Perkins EO # 0.2 103/ul Normal 0.0-0.7 [facility] Comment on above: Performed By: #### C BC #### [facility] [address] [place] [address] Dr. Karely Perkins Eosinophils/100 WBC (Bld) 3.9 % Normal 0.9-7.0 [facility] Comment on above: Performed By: #### C BC #### [facility] [address] [place] [address] Dr. Karely Perkins Erythrocyte distribution width (RBC) [Ratio] 12.8 % Normal 11.0-15.0 [facility] Comment on above: Performed By: #### C BC #### [facility] [address] [place] [address] Dr. Karely Perkins Hematocrit (Bld) [Volume fraction] 48.4 % Normal 42.0-54.0 [facility] Comment on above: Performed By: #### C BC #### [facility] [address] [place] [address] Dr. Karely Perkins Hemoglobin (Bld) [Mass/Vol] 15.8 g/dL Normal 14.0-18.0 [facility] Comment on above: Performed By: #### C BC #### [facility] [address] [place] [address] Dr. Karely Perkins IG # 0.01 10e3/ul Normal 0.00-0.03 [facility] Comment on above: Performed By: #### C BC #### [facility] [address] [place] [address] Dr. Karely Perkins IG % 0.2 % Normal 0.0-0.5 [facility] Comment on above: Performed By: #### C BC #### [facility] [address] [place] [address] Dr. Karely Perkins LYMPH # 1.4 103/ul Normal 1.2-3.8 [facility] Comment on above: Performed By: #### C BC #### [facility] [address] [place] [address] Dr. Karely Perkins Lymphocytes/100 WBC (Bld) 28.5 % Normal 20.5-60.0 [facility] Comment on above: Performed By: #### C BC #### [facility] [address] [place] [address] Dr. Karely Perkins MANUAL DIFF REQ NO Normal [facility] Comment on above: Performed By: #### C BC #### [facility] [address] [place] [address] Dr. Karely Perkins MCH (RBC) [Entitic mass] 28.7 pg Normal 25.9-34.0 [facility] Comment on above: Performed By: #### C BC #### [facility] [address] [place] [address] Dr. Karely Perkins MCHC (RBC) [Mass/Vol] 32.6 g/dL Normal 29.9-35.2 [facility] Comment on above: Performed By: #### C BC #### [facility] [address] [place] [address] Dr. Karely Perkins MCV (RBC) [Entitic vol] 87.8 fL Normal 80.0-94.0 [facility] Comment on above: Performed By: #### C BC #### [facility] [address] [place] [address] Dr. Karely Perkins MONO # 0.5 103/ul Normal 0.3-0.8 [facility] Comment on above: Performed By: #### C BC #### [facility] [address] [place] [address] Dr. Karely Perkins Monocytes/100 WBC (Bld) 10.3 % Normal 1.7-12.0 [facility] Comment on above: Performed By: #### C BC #### [facility] [address] [place] [address] Dr. Karely Perkins NEUT # 2.7 103/ul Normal 1.4-6.5 [facility] Comment on above: Performed By: #### C BC #### [facility] [address] [address] [address] Karely Perkins Neutrophils/100 WBC (Bld) 56.5 % Normal 43.0-75.0 [facility] Comment on above: Performed By: #### C BC #### [facility] [address] [address] [address] Karely Perkins Platelet mean volume (Bld) [Entitic vol] 9.3 fL Critically low 9.5-13.5 [facility] Comment on above: Performed By: #### C BC #### [facility] [address] [place] [address] Dr. Karely Perkins PLT 184 103/ul Normal 150-450 [facility] Comment on above: Performed By: #### C BC #### [facility] [address] [place] [address] Dr. Karely Perkins RBC 5.51 106/ul Normal 4.70-6.10 [facility] Comment on above: Performed By: #### C BC #### [facility] [address] [address] [address] Karely Perkins WBC 4.9 103/ul Normal 4.0-11.0 [facility] Comment on above: Performed By: #### C BC #### [facility] [address] [place] [address] Dr. Karely Perkins GLYCOHEMOGLOBIN A1Con 2022 ADA RECOMMENDATION SEE BELOW Normal [facility] Comment on above: Result Comment: ADA RECOMMENDED LIMIT 4.0 - 6.0 ADA THERAPEUTIC TARGET < 7.0 ACTION SUGGESTED > 7.0 Performed By: #### A 1C #### [facility] [address] [place] [address] Dr. Karely Perkins Glucose [Mass/Vol] 120 mg/dL Normal [facility] Comment on above: Performed By: #### A 1C #### [facility] [address] [place] [address] Dr. Karely Perkins HbA1c (Bld) [Mass fraction] 5.8 % Normal 4.5-6.2 [facility] Comment on above: Performed By: #### A 1C #### [facility] [address] [address] [address] Karely Perkins LIPID PROFILEon 05-18-2022 CHOL-HDL RATIO NORM SEE BELOW Normal [facility] Comment on above: Result Comment: 3.3 - 4.4 LOW RISK 4.4 - 7.1 AVERAGE RISK 7.1 - 11.0 MODERATE RISK >11.0 HIGH RISK Performed By: #### C MP, LIPID #### [facility] [address] [address] [address] Karely Perkins Cholesterol [Mass/Vol] 169 mg/dL Normal <=200 [facility] Comment on above: Performed By: #### C MP, LIPID #### [facility] [address] [address] [address] Karely Perkins Cholesterol in HDL [Mass/Vol] 74 mg/dL Critically high 40-60 [facility] Comment on above: Performed By: #### C MP, LIPID #### [facility] [address] [address] [address] Karely Perkins Cholesterol in LDL [Mass/Vol] 80.6 mg/dL Normal [facility] Comment on above: Performed By: #### C MP, LIPID #### [facility] [address] [address] [address] Karely Perkins Cholesterol.total/ Cholesterol in HDL [Mass ratio] 2.3 {ratio} Normal [facility] Comment on above: Performed By: #### C MP, LIPID #### [facility] [address] [address] [address] Karely Perkins HDL NORMAL > or = 60 mg/dl - LO W CARDIOVASCULAR RISK <40 mg/dl - HIGH CARDIOVASCULAR RISK Normal [facility] Comment on above: Performed By: #### C MP, LIPID #### [facility] [address] [address] [address] Karely Perkins LDL CALC NORMAL SEE BELOW Normal [facility] Comment on above: Result Comment: <100 mg/dl OPTIMAL 100 - 129 mg/dl NEAR OR ABOVE OPTIMAL 130 - 159 mg/dl BORDERLINE HIGH 160 - 189 mg/dl HIGH >190 mg/dl VERY HIGH Performed By: #### C MP, LIPID #### [facility] [address] [place] [address] Dr. Karely Perkins Triglyceride [Mass/Vol] 72 mg/dL Normal <=150 [facility] Comment on above: Performed By: #### C MP, LIPID #### [facility] [address] [place] [address] Dr. Karely Perkins VLDL CALC 14.4 mg/dL Normal [facility] Comment on above: Performed By: #### C MP, LIPID #### [facility] [address] [place] [address] Dr. Karely Perkins PROF 14(COMP METB)on 023 Albumin [Mass/Vol] 3.7 g/dL Normal 3.4-5.0 [facility] Comment on above: Performed By: #### C MP, LIPID #### [facility] [address] [place] [address] Dr. Karely Perkins Albumin/Globulin [Mass ratio] 1.0 {ratio} Normal [facility] Comment on above: Performed By: #### C MP, LIPID #### [facility] [address] [place] [address] Dr. Karely Perkins ALP [Catalytic activity/Vol] 117 U/L Critically high 46-116 [facility] Comment on above: Performed By: #### C MP, LIPID #### [facility] [address] [place] [address] Dr. Karely Perkins ALT [Catalytic activity/Vol] 24 U/L Normal 16-63 [facility] Comment on above: Performed By: #### C MP, LIPID #### [facility] [address] [place] [address] Dr. Karely Perkins Anion gap [Moles/Vol] 9.4 mmol/L Normal [facility] Comment on above: Performed By: #### C MP, LIPID #### [facility] [address] [place] [address] Dr. Karely Perkins AST [Catalytic activity/Vol] 34 U/L Normal 15-37 [facility] Comment on above: Performed By: #### C MP, LIPID #### [facility] [address] [address] [address] Karely Perkins Bilirubin [Mass/Vol] 0.7 mg/dL Normal 0.2-1.0 [facility] Comment on above: Performed By: #### C MP, LIPID #### [facility] [address] [place] [address] Dr. Karely Perkins Calcium [Mass/Vol] 9.0 mg/dL Normal 8.5-10.1 [facility] Comment on above: Performed By: #### C MP, LIPID #### [facility] [address] [place] [address] Dr. Karely Perkins Chloride [Moles/Vol] 108 mmol/L Critically high 98-107 [facility] Comment on above: Performed By: #### C MP, LIPID #### [facility] [address] [place] [address] Dr. Karely Perkins CO2 [Moles/Vol] 30.7 mmol/L Normal 21.0-32.0 [facility] Comment on above: Performed By: #### C MP, LIPID #### [facility] [address] [place] [address] Dr. Karely Perkins Creatinine [Mass/Vol] 0.90 mg/dL Normal 0.70-1.30 [facility] Comment on above: Performed By: #### C MP, LIPID #### [facility] [address] [place] [address] Dr. Karely Perkisn EGFR-AF BRAZILIAN >60 Normal >=60 [facility] Comment on above: Performed By: #### C MP, LIPID #### [facility] [address] [place] [address] Dr. Karely Perkins EGFR-NON AF BRAZILIAN >60 Normal >=60 [facility] Comment on above: Performed By: #### C MP, LIPID #### [facility] [address] [place] [address] Dr. Karely Perkins Globulin (S) [Mass/Vol] 3.6 g/dL Normal [facility] Comment on above: Performed By: #### C MP, LIPID #### [facility] [address] [address] [address] Karely Perkins Glucose [Mass/Vol] 109 mg/dL Critically high 74-106 [facility] Comment on above: Performed By: #### C MP, LIPID #### [facility] [address] [address] [address] Karely Perkins Potassium [Moles/Vol] 4.1 mmol/L Normal 3.5-5.1 [facility] Comment on above: Performed By: #### C MP, LIPID #### [facility] [address] [address] [address] Karely Perkins Protein [Mass/Vol] 7.3 g/dL Normal 6.4-8.2 [facility] Comment on above: Performed By: #### C MP, LIPID #### [facility] [address] [address] [address] Karely Perkins Sodium [Moles/Vol] 144 mmol/L Normal 136-145 [facility] Comment on above: Performed By: #### C MP, LIPID #### [facility] [address] [address] [address] Karely Perkins Urea nitrogen [Mass/Vol] 20.0 mg/dL Critically high 7.0-18.0 [facility] Comment on above: Performed By: #### C MP, LIPID #### [facility] [address] [address] [address] Karely Perkins Urea nitrogen/Creatinin e [Mass ratio] 22.2 mg/mg Normal [facility] Comment on above: Performed By: #### C MP, LIPID #### [facility] [address] [address] [address] Karely Perkins US SCROTUMon 11-18-2021 US SCROTUM EXAMINATION: US SCRO FORREST HISTORY: Varicocele ; left scrotal swelling for one week COMPARISON: No relevant comparison available. TECHNIQUE: High-resolution sonographic imaging of the scrotum and contents was performed. FINDINGS: RIGHT TESTICLE: Homogeneous echotexture. No visible mass. Color Doppler flow is present. Spectral Doppler demonstrates normal arterial waveform and flow, 6/2 cm/s (PSV/EDV), and normal venous wave flow averaging 2 cm/s. LEFT TESTICLE: Homogeneous echotexture. No visible mass. Color Doppler flow is present. Spectral Doppler demonstrates arterial waveform and flow, 4/2 cm/s (PSV/EDV), and normal venous flow averaging 2 cm/s. RIGHT EPIDIDYMIS: Normal size and echogenicity. LEFT EPIDIDYMIS: Normal size and echogenicity. OTHER: Bilateral hydroceles, left greater than right. IMPRESSION: 1. Bilateral hydroceles of uncertain etiology, left greater than right. 2. Normal appearance of testicles and epididymides. Electronically authenticated by: DEEP HOYOS Date: 2021-11-18 12:10 Normal [facility] Vital Signs Date Time Vital Sign Value Performing Clinician Lucius keane 07-11-2023 13:24-0400 Blood Pressure Location [employer] [facility] 07-11-2023 13:24-0400 Diastolic blood pressure 80 mm[Hg] Jeronimo [employer] [facility] 07-11-2023 13:24-0400 Heart rate 72 /min [employer] [facility] 07-11-2023 13:24-0400 Respiratory rate 16 /min Jeronimo [employer] [facility] 07-11-2023 13:24-0400 Systolic blood pressure 126 mm[Hg] [employer] [facility] 06-07-2023 11:36-0400 Body height 170.2 cm El Mccabe [employer] [place] Work Phone: [facility] 06-07-2023 11:36-0400 Body mass index (BMI) [Ratio] 25.31 kg/m2 El Mccabe [employer] [place] Work Phone: [facility] 06-07-2023 11:36-0400 Body weight 73.3 kg El Mccabe [employer]INT COL[employer] MATCHER-CHIEF TECHNICAL OFFICER Work Phone: [facility] 06-07-2023 11:36-0400 Diastolic blood pressure 95 mm[Hg] El Mccabe [employer] MATCHER-CHIEF TECHNICAL OFFICER Work Phone: [facility] 06-07-2023 11:36-0400 Heart rate 81 /min El Mccabe [employer]INT [employer]OR MATCHER-CHIEF TECHNICAL OFFICER Work Phone: [facility] 06-07-2023 11:36-0400 Systolic blood pressure 178 mm[Hg] El Mccabe [employer] MATCHER-CHIEF TECHNICAL OFFICER Work Phone: [facility] Encounters Encounter Date Encounter Type Care Provider Facility Start: 07-11-2023 End: 07-12-2023 ambulatory Jeronimo HENRY Facility:[facility] Start: 07-11-2023 End: 07-11-2023 Patient encounter [facility] Start: 06-19-2023 ambulatory Jeronimo HENRY Facility:[facility] Start: 06-16-2023 ambulatory Jeronimo HENRY Facility:[facility] Start: 06-07-2023 End: 06-07-2023 ambulatory EL Edis MCCABE [facility] Start: 06-07-2023 End: 06-07-2023 Patient encounter procedure El Mccabe [employer] MATCHER-CHIEF TECHNICAL OFFICER Work Phone: [facility] Comment on above: Status post laparosc opic cholecystectomy (Primary Dx); Status post umbilical hernia repair, follow-up exam Start: 05-31-2023 Orders Only Not In System Ref Prov [facility] Start: 05-25-2023 End: 05-25-2023 ambulatory Jeronimo Lyon Facility:[facility] Start: 05-25-2023 End: 05-25-2023 ambulatory DO Jeronimo Lyon Work Phone: [facility] Work Phone: Start: 05-25-2023 End: 05-25-2023 Departed Referred DO Jeronimo Lyon Work Phone: [facility] Start: 06-06-2022 End: 06-07-2022 ambulatory REVA SHANNON Facility:[facility] Start: 05-18-2022 End: 05-19-2022 ambulatory REVA SHANNON Facility:[facility] Start: 11-18-2021 End: 11-19-2021 ambulatory REVA SHANNON Facility:[facility] Start: 05-07-2020 End: 05-07-2020 Patient encounter procedure Wendy Remigio Work Phone: [facility] Work Phone: Procedures Date Procedure Procedure Detail Performing Clinician Start: 05-27-2023 MULTIPLE LABS Not In System Ref Prov Start: 05-25-2023 Level i surg pathology gross examination only Not In System Ref Prov Start: 05-18-2022 PSA screening REVA SHANNON Comment on above: Performed By: #### PSASC #### [facility] [address] [address] [address] Karely Perkins Start: 05-07-2020 Imm. administration COVID19 Moderna dose 1 Wendy Flood Work Phone: Start: 05-07-2020 SARS-CoV-2 vaccine, 0.5ml Moderna Wendy Flood Work Phone: Start: 09-23-2015 Colonoscopy Jeronimo HENRY Start: 09-23-2015 Esophagogastroduodenoscopy Jeronimo HENRY Excision of basal cell carcinoma Jeronimo HENRY Comment on above: back Excision of squamous cell carcinoma Jeronimo HENRY Comment on above: left shoulder History of cholecystectomy Statu s post laparoscopic cholecystectomy El Mccabe [employer] MATCHER-CHIEF TECHNICAL OFFICER Work Phone: Repair of umbilical hernia Jesusita HENRY Tonsillectomy Jeronimo HENRY Plan of Treatment Date Care Activity Detail Author Start: 06-06-2024 Adult BMI Screening Adult BMI Screening [facility] Start: 06-06-2024 Tobacco Screening Tobacco Screening [facility] Start: 11-05-2023 Influenza vaccination Influenza Vaccine [facility] Start: 06-04-2020 2nd Dose- COVID Vaccine [facility] Work Phone: Start: 08-23-2011 Fall Risk Screening Fall Risk Screening [facility] Start: 1996 Administration of varicella zoster vaccine Zoster (Shingles) Vaccine (1 of 2) [facility] Start: 1965 DTaP,Tdap and Td Vaccines (1 - Tdap) DTaP,Tdap and Td Vaccines (1 - Tdap) [facility] Start: 1964 Adult BMI Follow Up Plan Adult BMI Follow Up Plan [facility] Start: 1958 Depression Screening Depression Screening [facility] Start: 1946 Medicare Annual Wellness Visit Medicare Annual Wellness Visit [facility] Immunizations Immunization Date Immunization Notes Care Provider [facility] 11-23-2022 influenza virus vaccine, unspecified formulation El Erich [employer] MATCHER-CHIEF TECHNICAL OFFICER Work Phone: [facility] 12-14-2021 SARS-CoV-2 (COVID-19 ) [id number] Jeronimo HENRY [facility] 06-29-2021 SARS-CoV-2 (COVID-19 ) mRNA BNT-162b2 vax Jeronimo HENRY [facility] 01-06-2021 SARS-CoV-2 (COVID-19 ) mRNA-1273 vaccine Jeronimo HENRY [facility] 06-04-2020 SARS-CoV-2 (COVID-19 ) mRNA-1273 vaccine Jeronimo HENRY [facility] 05-07-2020 2nd Dose MODERNA COVID-19 Vaccine; Translations: [Moderna COVID-19 Vaccine] Luiz Jimenez [facility] Comment on above: Note: Patient tolera keely well. No signs or symptoms of adverse reactions. Patient waited a minimum of 15 minutes. Payers Date Payer Category Payer Self-pay 2022 Medicare A[employer]NA MEDICARE A ETNA MEDICARE PLAN (PPO) [id number] 2022-Present [phone] [address] [place] [address] [id number] 2011 Unknown 1 - Medicare [facility] CGS PPS [id number] 1959 Medicare [id number] 1959 Medicare [id number] 1959 Unknown [id number] 1946 Unknown [id number] 1946 Unknown [id number] 1946 Unknown [id number] 1946 Unknown [id number] 1946 Unknown [id number] Medicare Medicare Outpatient [id number] Unknown [facility] Health Claims [id number] Unknown [id number] Social History Date Type Detail Facility Tobacco smoking status Unknown if ever sm oked [facility] Start: 1945 Sex Assigned At Male F [facility] Start: 08-15-2018 End: 06-07-2023 History of [address] function [facility] Start: 08-15-2018 End: 06-07-[address] [facility] Childcare Unknown [facility] Start: 1945 Sex Assigned At Not on file [facility] Start: 06-07-2023 End: 07-11-2023 Tobacco smoking status NHIS Ex-smoker [facility] End: 03-06-1983 History of tobacco use Current smoker [facility] End: 03-06-1983 History of tobacco use Cigarette Smoker [facility] Start: 06-07-2023 Tobacco use and exposure Smokeless tobacco non-user [facility] Start: 06-07-2023 Alcohol intake Current drinke r of alcohol (finding) [facility] Functional Status Date Assessment Result Facility 07-11-2023 Functional Status N/A [facility] [place] Clinical Note 07-11-2023 Note Date & Type Note Facility 07-11-2023 Note Chief Complaint consultation for positive Cologuard HPI Staff 77 year old male presents on consultation from Lenore Shannon for positive Cologuard. Last colonoscopy completed 2015 with sigmoid diverticulosis. Sister with history of colon cancer, diagnosed age 77. Patient report several year history of epigastric pain which is relieved with use of Tums. Denies nausea or vomiting. Denies rectal pain or bleeding. No change in bowel habits. History of Present Illness 77 YO male with h/o hyperlipidemia, referred for positive Cologuard; denies change in bms or blood in stools, no abd complaints; last colonoscopy 2015 with sigmoid diverticulosis; abd operations significant for cholecystectomy and umbilical hernia repair; no asa or NSAID use; no tobacco use; fmhx of colon cancer in patient's sister diagnosed at age 77, no fmhx of IBD. Review of Systems PHQ Score Initial Depression Screen Score: 0 SCORE ROS - Provider Constitutional: no fever, no sweats, no weight loss. Eyes: no glasses, no blurred vision, no visual loss. ENMT: no dentures, no hoarseness, no swallowing difficulties, no hearing loss, no ear infection(s), no nose bleeds. Cardiovascular: normal blood pressure, no chest pain, regular heartbeat, no heart murmur. Respiratory: no shortness of breath, no cough, no asthma, no wheezing. Gastrointestinal: no nausea, no vomiting, no diarrhea, no constipation, no blood in stool, no change in bowel habits, no abdominal pain, no hepatitis. Genitourinary: no kidney stones, no urine infection, no dysuria. Musculoskeletal: no pain, no weakness. Skin: no changing moles, no rash, no skin lumps. Neurologic: no seizures, no epilepsy, no headache. Psychiatric: no emotional or psychiatric problem. Heme/Lymph: no bleeding problems, no anemia, no blood clots, no transfusions. Allergy/Immunologic: no swollen lymph nodes/glands, no IV drug abuse. Other: Additional ROS info: Except as noted in the above Review of Systems and in the History of Present Illness, all other systems have been reviewed and are negative or noncontributory. Physical Exam Vitals & Measurements HR: 72(Peripheral) RR: 16 BP: 126/80 HT: 67 in HT: 170 cm WT: 68.9 kg WT: 151.58 lb BMI: 23.84 HEENT: normal conjunctiva, sclera clear, no scleral icterus, EOM intact, PERRLA, oral mucosa moist without lesions. hard of hearing. Neck: trachea midline, no mass, symmetric, no thyromegaly or nodules, no adenopathy Respiratory: lungs CTA, respirations non labored. Cardiovascular: regular rate and rhythm, no murmur, no pedal edema or varicosities. Gastrointestinal: soft, non distended, no tenderness, no masses, no palpable hernias, diastasis recti no, no hepatosplenomegaly; normal bs; well-healed LS incisions; Lymphatic: no cervical adenopathy, no supraclavicular adenopathy. Musculoskeletal: normal gait, digits and nails without infection, nodes, cyanosis, clubbing. Skin: no rashes, no lesions, no ulcers, no subcutaneous nodules, induration. Psychiatric/Neuro: oriented to time, place, person, judgement normal, affect appropriate for age, insight intact, no focal deficits. Tests: labs reviewed review of old records completed , Discussed surgical options, risks, and possible complications with patient. Assessment/Plan 1. Positive colorectal cancer screening using Cologuard test (R19.5: Other fecal abnormalities) plan colonoscopy under anesthesia, informed consent obtained. Follow-up No qualifying data available Problem List/Past Medical History Ongoing Anxiety Hyperlipidemia Overweight Positive colorectal cancer screening using Cologuard test Sigmoid diverticulosis Historical BMI 25.0-25.9,adult Procedure/Surgical History Colonoscopy (09/23/2015), EGD - esophagogastroduodenoscopy (09/23/2015), Cholecystectomy, Excision of basal cell carcinoma, Excision of squamous cell carcinoma, Repair of umbilical hernia, Tonsillectomy. Medications simvastatin 20 mg Tab, 20 mg= 1 tab(s), Oral, qPM Allergies No Known Allergies No Known Medication Allergies Social History Alcohol - Denies Alcohol Use, 07/11/2023 Substance Abuse - Denies Substance Abuse, 07/11/2023 Tobacco Former smoker, quit more than 30 days ago Tobacco Use:. Never Smokeless Tobacco Use:. Cigarettes, 0.5 per day. Started age 15.0 Years. Stopped age 36 Years., 07/11/2023 Family History Diabetes mellitus type 2: Mother and Brother. Heart disease: Father. Hypertension: Father and Brother. Primary malignant neoplasm of colon: Sister. Immunizations Vaccine Date Status influenza virus vaccine, inactivated 11/23/2022 Recorded SARS-CoV-2 (COVID-19) [id number] 12/14/2021 Recorded SARS-CoV-2 (COVID-19) mRNA BNT-162b2 vax 06/29/2021 Recorded SARS-CoV-2 (COVID-19) mRNA-1273 vaccine 01/06/2021 Recorded SARS-CoV-2 (COVID-19) mRNA-1273 vaccine 06/04/2020 Recorded SARS-CoV-2 (COVID-19) mRNA-1273 vaccine 05/07/2020 Recorded [facility] Comment on above: Result Comment: Elec tronically Signed By: ELAINE FRANCISCO, Jeronimo Hall\Date and Time Signed: 07/11/23 13:45 EDT History of Present illness Narrative 06-07-2023 El Mccabe, SHAYNE-CHIEF TECHNICAL OFFICER - 06/07/2023 11:30 AM EDT Note Date & Type Note Facility 06-07-2023 History of Present illness Narrative Images from the original note were not included. Subjective Abigail Washington is a 77 y.o. male status post robotic assisted cholecystectomy and umbilical hernia repair on 05/24/2023. He is having some soreness on the right. He thinks he may have overdone it. He messed up his shoulder pulling himself up in bed. He lives alone. The pain is getting better. He is taking Aleve for it. He has no other concerns. He denies fevers. He has been tolerating oral intake and denies nausea and vomiting. He is having regular bowel function. Objective Vitals: 06/07/23 1136 BP: (!) 178/95 Pulse: 81 Physical Exam Constitutional: Appearance: Normal appearance. Abdominal: General: There is no distension. Palpations: Abdomen is soft. Tenderness: There is no abdominal tenderness. There is no guarding. Skin: General: Skin is warm and dry. Coloration: Skin is not jaundiced. Findings: No erythema. Comments: Lap sites clean, dry and intact. No signs of infection. Neurological: Mental Status: He is alert. Assessment Abigail Washington is a 77 y.o.male postop cholecystectomy and umbilical hernia repair. Plan Final pathology discussed and given to patient in office today. No strenuous activity for another 4 weeks. Follow-up as needed. Status post laparoscopic cholecystectomy [Z90.49] JEVON SINGH [facility] [place] This note was created with the assistance of a speech recognition program. While intending to generate a timely document that accurately reflects the content of the visit, no guarantee can be provided that every grammatical or spelling mistake has been or will be identified or corrected. Thank you for your understanding. JEVON Singh 06/07/23 1150 documented in this encounter [facility] Evaluation + Plan note Note Date & Type Note Facility Evaluation + Plan note No data available for this section [facility] Evaluation note Note Date & Type Note Facility Evaluation note No assessment information availa [facility] Work Phone: Evaluation note Note Date & Type Note Facility Evaluation note Diagnosis Status post laparoscopic cholecystectomy- Primary Other postprocedural status Status post umbilical hernia repair, follow-up exam Follow-up examination, following other surgery documented in this encounter [facility] Discharge instructions Note Date & Type Note Facility Hospital Discharge instructions No data available for this section [facility] [place] Instructions Note Date & Type Note Facility Instructions Not on filedocumented in this en counter [facility] Instructions Note Date & Type Note Facility Instructions Not on filedocumented in this en counter [facility] Progress note Note Date & Type Note Facility Progress note No data available for this section [facility] Reason for Referral No Reason for Referral Recorded No data available for this section Assessments Findings Encounter Date Encounter for Immunization 1st COVID Vaccine susan h Wendy Remigio CHIEF TECHNICAL OFFICER 05/07/2020 Instructions Instructions not supported for this document type No Instructions Recorded History of Present Illness History of Present Illness not supported for this document type No History of Present Illness Recorded Family History Includes: Family History in patient's chart No Family History RecordedNo Family History Records FoundNo Family History Records FoundNo Family History Records Found No data available for this section No Family History Records Found Review of System Review of Systems not supported for this document type No Review of Systems Recorded Physical Exam Physical Exam not supported for this document type No Physical Exam Recorded Advance Directives Includes: Current Advance Directives No Advance Directives RecordedNo Advanced Directives Records FoundNo Advanced Directives Records FoundNo Advanced Directives Records FoundNo Advanced Directives Records Found Summary Purpose Additional Source Comments Medical History (unrecognize d section and content) Includes: Medical History in patient's chartNo Medical History Recorded Evaluations & Outcomes (unre cognized section and content) Includes: Evaluations & Outcomes for active GoalsNo Outcomes Recorded (unrecognized sect ion and content) No Status Records FoundNo Status Records FoundNo Status Records FoundNo Status Records Found INFORMATION SOURCE (unrecogn ized section and content) DATE CREATED AUTHOR 06/11/2022 [facility] DATE CREATED AUTHOR AUTHOR'S ORGANIZ ATION 05/27/2023 [facility] DATE CREATED AUTHOR AUTHOR'S ORGANIZ ATION 06/08/2023 [facility] DATE CREATED AUTHOR AUTHOR'S ORGANIZ ATION 07/13/2023 [facility] Care Teams (unrecognized sec tion and content) Team Status: Inactive Member Role Status Dates Jeronimo Lyon DO Attending Provider Active Start: May 25, 2023 End: May 25, 2023 [employer] Relationship Specialty Start Date End Date Reva Shannon, PRINT COLOR MATCHER-CHIEF TECHNICAL OFFICER [address], [place] [address] PCP - General Family Medicine 06/01/23 Goals (unrecognized section and content) Goals may be documented in a n alternate section Reason for Visit (unrecogniz ed section and content) Reason Comments Post-op Post op davinci chol ecystectomy and umbilical hernia repair performed 05/24/23 at [facility] FOR RECORDS PERTAINING TO PATIENTS WHO ARE OR HAVE BEEN ENROLLED IN A CHEMICAL DEPENDENCY/SUBSTANCEABUSE PROGRAM, SOME INFORMATION MAY BE OMITTED. This clinical summary was aggregated from multiple sources. Caution should be exercised in using it in the provision of clinical care. This summary normalizes information from multiple sources, and as a consequence, information in this document may materially change the coding, format and clinical context of patient data. In addition, data may be omitted in some cases. CLINICAL DECISIONS SHOULD BE BASED ON THE PRIMARY CLINICAL RECORDS. [employer] provides no warranty or guarantee of the accuracy or completeness of information in this document.
--- NOTE | 2023-07-15 08:55 | CT_ITS ---
The [address] [address] Patient Name: ABIGAIL BIRMINGHAM MRN: [id number] date: 1945 Sex: M Assigned Patient Location: CT Current Patient Location: Accession/Order Number: [id number] Exam Date: 07/15/2023 09:36 Report Date: 07/16/2023 07:28 At the request of: ZACHARY SHANNON Procedure: CT abdomen pelvis wo/w con EXAMINATION: CT abdomen pelvis wo/w con HISTORY: Liver Lesion, K76.9 ; follow-up COMPARISON: Ultrasound right upper quadrant 06/27/2023, CT abdomen pelvis without contrast 05/23/2023 TECHNIQUE: Axial, Coronal, and Sagittal images were obtained without and/or with IV contrast as indicated by examination type. Dose reduction techniques were achieved by using automated exposure control and/or adjustment of mA and/or kV according to patient size and/or use of iterative reconstruction technique. FINDINGS: LUNG BASES: No visible pulmonary or pleural disease. LIVER: Significant mass effect on right lateral margin of liver secondary to large fluid collection. BILIARY: Cholecystectomy. Approximately 17 x 17 x 11 cm homogeneous fluid collection arising from the gallbladder fossa and extending cephalad along right margin of liver within the hepatic capsule. PANCREAS: No lesion, fluid collection, or abnormal duct dilatation. SPLEEN: No enlargement or focal lesion. ADRENALS: No mass or enlargement. KIDNEYS: Several hypodensities bilaterally favoring cysts. BOWEL/MESENTERY: No visible mass, obstruction, or bowel wall thickening. AORTA/VASCULAR: No aneurysm or dissection. RETROPERITONEUM: No mass or adenopathy. LYMPH NODES: No adenopathy. URINARY BLADDER: No visible focal wall thickening, lesion, or calculus. PELVIC ORGANS: No visible mass. Pelvic organs appropriate for patient age. ABDOMINAL WALL: No mass or hernia. BONES: No bony lesion or fracture. OTHER: Negative. CT/CT abdomen pelvis wo/w con IMPRESSION: 1. Nonenhancing large fluid collection extending cephalad from the gallbladder fossa along right margin of liver within the hepatic capsule resulted in mass effect on the liver; findings most consistent with a postcholecystectomy biloma.No free fluid within the peritoneal cavity. Electronically authenticated by: ZULEMA HENDRICKSON Date: 07/16/2023 07:28
== END 2023-07-15 08:51 | disposition home or self-care (01) ==
LOC: CT 08:52
PROVIDERS: PCP Nurse Practitioner Family; Visit Provider Nurse Practitioner Family
DX: K76.9 Liver disease, unspecified (principal)
CPT/HCPCS: 74178; Q9967

== ENCOUNTER 2023-08-01 14:33 | Outpatient (OUT) | payer MEDICARE, SELFPAY | END 2023-08-01 14:34 | disposition home or self-care (01) | LOC: PST 14:33 | PROVIDERS: PCP Nurse Practitioner Family; Visit Provider Surgery | DX: Z01.818 Encounter for other preprocedural examination (principal); R19.5 Other fecal abnormalities ==

== ENCOUNTER 2023-08-09 09:57 | Day surgery (SDC) | payer MEDICARE, SELFPAY ==
--- NOTE | 2023-08-09 | OP_ITS ---
OPERATION DATE: 08/09/2023 PREOPERATIVE DIAGNOSIS: Positive Cologuard. POSTOPERATIVE DIAGNOSIS: 3 mm polyp in the descending colon, as well as moderate sigmoid diverticulosis. PROCEDURE: Colonoscopy to cecum with cold biopsy forceps polypectomy x1 for a descending colon polyp. SURGEON: Jeroniom Brandt M.D. ANESTHESIA: Monitored anesthesia care. ESTIMATED BLOOD LOSS: Less than 1 mL. INDICATIONS AND CONSENT: Patient is a 77-year-old male with a recent positive Cologuard. Indications, risks, benefits, alternatives of proceeding with colonoscopy were explained extensively to the patient, including the risks of bleeding, colon perforation or anesthetic complications. All of his questions were answered. Informed consent was obtained. PROCEDURE: Patient brought to the operating room, placed in the left lateral decubitus position. Monitored anesthesia care was provided. Rectal exam was performed which showed no masses or blood. The scope was inserted into the anal canal. Under direct visualization was advanced. It was advanced to the cecum where cecal markings were clearly identified. With the aid of abdominal compression, the cecum was able to be reached. There was noted to be a good prep. Upon withdrawal of the scope, mucosal surfaces were carefully examined. There were no mass lesions or inflammatory changes. There was moderate sigmoid diverticulosis without inflammatory changes or scarring. Within the descending colon, there was noted to be a 3 mm sessile polyp that was removed with cold biopsy forceps with good hemostasis. The scope was retroflexed in the anal canal. There were some prominent rectal veins but no significant hemorrhoidal disease. Scope was then withdrawn. Patient tolerated procedure well, was sent to recovery room in good condition. Follow up colonoscopy should be in five years but will depend on the pathology report. CC: WENDY Hernandez
[2023-08-09 10:09] VITALS: BP 158/103; PULSE 71; TEMP 35.8; O2SAT 99; BMI 23.0
--- OUTSIDE RECORDS SUMMARY | 2023-08-09 10:11 | XMS_ITS | CCD ---
Author Organization [facility] Care Team Providers Care Wrapper Stitcher Name Role Phone Luiz Jimenez Unavailable SHIVA, REVA Admitting Unavailable SHIVA, REVA Attending Unavailable MADHAVI, DR DEEP Obando Consulting Unavailable SHIVA, REVA Primary Care Unavailable SHIVA, REVA Consulting Unavailable SHIVA, REVA Attending Unavailable SHIVA, REVA Consulting Unavailable SHIVA, REVA Primary Care Unavailable SHIVA, REVA Admitting Unavailable SHIVA, REVA Primary Care Unavailable LINDSEY ., DR PAT Admitting Unavailable LINDSEY ., DR PAT Attending Unavailable LINDSEY ., DR PAT Consulting Unavailable MADHAVI, DR DEEP Obando Consulting Unavailable DO Jaciel Echavarria Attending Provider Jaciel Echavarria Attending Unavailable Jaciel Echavarria Admitting Unavailable Unavailable Primary Care Provider Unavailnatalya Shannon APRN-WENDY, Reva S Primary Care Provider SHIVA, REVA S Primary Care Physician EL MCCABE Attending Unavailable SHIVA, REVA S Referring Unavailable SHIVA, REVA S Primary Care Unavailable SHIVA, REVA S Referring Unavailable SHIVA, REVA S Primary Care Unavailable SHIVA, REVA S Referring Unavailable SHIVA, REVA S Primary Care Unavailable Renate Brock Attending Unavailable SHIVA, REVA S Referring Unavailable SHIVA, REVA S Referring Unavailable Jaciel HENRY Attending Unavailable JACIEL ECHAVARRIA Attending Unavailable ITALIA JACIEL E Referring Unavailable SHIVA, REVA S Primary Care Unavailable JACIEL ECHAVARRIA E Attending Unavailable JESSIKAS, JACIEL E Referring Unavailable SHIVA, REVA S Primary Care Unavailable Zack Gibson Referring Unavailable SHIVA, REVA S Primary Care Unavailable Allergies Allergy Classification Reported Allergen(s) Allergy Type Date of Onset Reaction(s) Facility (1 source) No Known Medication Allergies; Translations: [No Known Medication Allergies] Propensity to adverse reactions (disorder) [facility] Repository Medications Current Medications Medication Drug Class(es) [...] conditions (not mental disorders or infectious disease) (3 sources) Encounter for screening for malignant neoplasm of prostate; Translations: [Stool DNA-based colorectal cancer screening positive] Onset: 05-19-2022 06-28-2023 Episodic Residual codes; unclassified (1 source) Pain, unspecified; Translations: [Pain, unspecified] Onset: 07-20-2023 Episodic Residual codes; unclassified (2 sources) Acquired absence of other specified parts of [...] Test Name Value Interpretation Reference Range Facility Insurance Correspondenceon 0 07-26-2023 Insurance Correspondence [id number] Normal [facility] ASPIRATE CULTUREon 4 Bacteria identified Aer cx Nom (Asp) GRAM STAIN 10 to 24 WHITE BLOOD CELLS/LPF 0 SQUAMOUS EPITHELIAL CELLS/LPF NO ORGANISMS SEEN CULTURE RESULTS NO GROWTH 3 DAYS Normal [facility] Comment on above: Performed By: #### 5 97-5 #### [facility] ([id number]) [address] [place] [address], [address] [place] [address] COMPREHENSIVE METABOLIC PANE Leonides 07-20-2023 Albumin [Mass/Vol] 3.5 g/dL Normal 3.2-5.3 [facility] Comment on above: Performed By: #### C MP #### [facility] ([id number]) [address] [facility] [address] ALP [Catalytic activity/Vol] 298 U/L High 39-130 [facility] Comment on above: Performed By: #### C MP #### [facility] ([id number]) [address] [place] [address] ALT [Catalytic activity/Vol] 32 U/L Normal 0-40 [facility] Comment on above: Performed By: #### C MP #### [facility] ([id number]) [address] [place] [address] Anion gap [Moles/Vol] 10 mmol/L Normal 5-15 [facility] Comment on above: Performed By: #### C MP #### [facility] ([id number]) [address] [place] [address] AST [Catalytic activity/Vol] 36 U/L Normal 0-41 [facility] Comment on above: Performed By: #### C MP #### [facility] ([id number]) [address] [place] [address] 48[address] Bilirubin [Mass/Vol] 1.0 mg/dL Normal 0.3-1.2 [facility] Comment on above: Performed By: #### C MP #### [facility] ([id number]) [address] [place] [address] Calcium [Mass/Vol] 8.8 mg/dL Normal 8.5-10.5 [facility] Comment on above: Performed By: #### C MP #### [facility] ([id number]) [address] [place] [address]71 Chloride [Moles/Vol] 101 mmol/L Normal 98-109 [facility] Comment on above: Performed By: #### C MP #### [facility] ([id number]) [address] [place] [address] 36226 CO2 [Moles/Vol] 25 mmol/L Normal 22-32 [facility] Comment on above: Performed By: #### C MP #### [facility] ([id number]) [address] [place] [address]165 Creatinine [Mass/Vol] 0.89 mg/dL Normal 0.70-1.20 [facility] Comment on above: Result Comment: METH OD TRACEABLE TO IDMS STANDARD Performed By: #### C MP #### [facility] ([id number]) [address] [place] [address] GFR/1.73 sq M.predicted among non-blacks MDRD (S/P/Bld) [Vol rate/Area] 89 mL/min/{1.73_m2} Normal >59 [facility] Comment on above: Result Comment: Reported eGFR is based on the CKD-EPI 2020 equation that does not use a race coefficient. Performed By: #### C MP #### [facility] ([id number]) [address] [place] [address] Glucose [Mass/Vol] 104 mg/dL High 65-99 [facility] Comment on above: Performed By: #### C MP #### [facility] ([id number]) [address] [place] [address] Potassium [Moles/Vol] 4.0 mmol/L Normal 3.5-5.0 [facility] Comment on above: Performed By: #### C MP #### [facility] ([id number]) [address] [place] [address] Protein [Mass/Vol] 7.8 g/dL Normal 6.0-8.0 [facility] Comment on above: Performed By: #### C MP #### [facility] ([id number]) [address] [place] [address] 10131 Sodium [Moles/Vol] 136 mmol/L Normal 134-146 [facility] Comment on above: Performed By: #### C MP #### [facility] ([id number]) [address] [facility], [place] [address] Urea nitrogen [Mass/Vol] 17 mg/dL Normal 5- [facility] Comment on above: Performed By: #### C MP #### [facility] ([id number]) [address] [place] [address] Cytologyon 07-20-2023 Cytology Normal [facility] Comment on above: Result Comment: [facility] [address] [place] [address] Cytology Consultation Patient Name:ABIGAIL WASHINGTON:1945 (Age: 77)Gender:MTaken:07/20/2023eported:07/21/2023 11:52Physician(s):Zack Gibson M.D. ([phone])Copy To:Jaciel Echavarria D.O. Rec. #:[id number]: #[id number] Final Cytologic Diagnosis Bile leak fluid: No malignant cells identified. [facility]/07/21/2023 Interpretation performed at [facility], [address] [place] [address], License number: [id number].Electronically Signed Out By Jerrod Batista M.D. Clinical History None given. Gross Description Received was 1,600 mL of brown fluid unfixed labeled as Cylinder, bile leak . CytoLyt added in lab. Specimen placed in formalin at 14:00 and had a total fixation time of 12 hours. 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 . The usual sterile barrier technique and local anesthesia were employed. From a right anterolateral approach the large collection was entered in its inferior portion with a 10 Ukrainian pigtail drainage catheter, using trocar technique. A total of 1400 mL of bile was drained. Specimen was sent for culture and sensitivity. The procedure was well tolerated with no evidence of immediate complications. IMPRESSION: Uneventful US-guided drainage of the right upper quadrant biloma. All CT scans at this facility use dose modulation, iterative reconstruction, and/or weight based dosing when appropriate to reduce radiation dose to as low as reasonably achievable. Finalized by Zack Gibson MD on 07/20/2023 12:51 PM Normal [facility] NM HEPATOBILIARY SYS IMAGING WO PHARMACOLOGIC AGENTon 07-20-2023 NM HEPATOBILIARY SYS IMAGING WO PHARMACOLOGIC AGENT NM HEPATOBILIARY SYS IMAGING WO PHARMACOLOGIC AGENT NM HEPATOBILIARY SYS IMAGING WO PHARMACOLOGIC AGENT: 07/20/2023 6:10 AM Clinical:Postcholecystectomy with possible bile leak. EXAM: HIDA SCAN HIDA scan performed with IV administration of 5.0 mCi technetium 99m mebrofenin. COMPARISON: Outside CT 07/15/2023. FINDINGS: There is prompt uptake of activity in the liver and excretion into the common duct and small bowel. No definite contrast extravasation seen outside the biliary system and bowel. Gallbladder surgically absent. There is a large photopenic defect along the lateral aspect of the liver corresponding to the large cystic lesion seen on CT; no activity seen in this location. Impression: * No CT evidence of biliary leak. * Large cystic photopenic defect along the lateral aspect of the liver corresponds to the fluid collection seen on CT and shows no internal activity. Finalized by Narayan Wan MD on 07/20/2023 7:35 AM Normal [facility] PLATELET COUNT AND MPVon Platelet mean volume (Bld) [Entitic vol] 7.2 fL Normal 7-12 [facility] Comment on above: Performed By: #### P LTCT, PINR #### [facility] ([id number]) [address] [place] [address]9744 Platelets (Bld) [#/Vol] 247 10*3/uL Normal 150-450 [facility] Comment on above: Performed By: #### P LTCT, PINR #### [facility] ([id number]) [address] [place] [address]19 PROTIME AND INRon 07-20-2023 INR Coag (PPP) [Relative time] 1.1 {INR} Normal 0.8-1.1 [facility] Comment on above: Performed By: #### P LTCT, PINR #### [facility] ([id number]) [address] [place] [address] 24935 PT Coag (PPP) [Time] 12.8 s Normal 9.8-13.2 [facility] Comment on above: Result Comment: NEW REFERENCE RANGE Performed By: #### P LTCT, PINR #### [facility] ([id number]) [address] [place] [address] 25291 Consent for Procedure/Surger yon 07-12-2023 Consent for Procedure/Surgery [id number] Normal [facility] Ambulatory Visit Summaryon 0 07-11-2023 Ambulatory Visit Summary ABIGAIL WASHINGTON :1945 Visit Date:07/11/2023 Ambulatory Visit Instructions Your Diagnosis Positive colorectal cancer screening using Cologuard test Your Care Team Attending Physician - Jaciel HENRY MD Primary Care Physician - REVA [...] you for choosing us for your care. [facility] Facesheeton 07-11-2023 Facesheet [id number]#[id number] [facility] Physician Referralon 024 Physician Referral [id number] [facility] Multiple labson 05-27-2023 [facility] Surgical Pathologyon 024 [facility] Leonides 05-24-2023 L Specimen: [id number] eceived: 05/25/23 Status: BRENT Galloway Num: [id number] Spec Type: Surgical Subm Dr: Jaciel Echavarria DO Tissues: A Gallbladder (GALLBLADDER) Procedures: HE, Gross/Micro L3 Age/ Patient Sex Location Account Attending Physician Abigail Washington 77/M LABELL [id number] Jaciel Echavarria DO SPEC NUM: [id number] RECD: 05/25/23 STATUS: [facility] NUM: [id number] DAMARI: 05/24/[address]: Jaciel Echavarria DO ENTERED: 05/25/[address]: Gonzalez Lazaro SPEC TYPE: Surgical DEPT: [...] brown to green-de jesus and denuded. . Sticker Machine Operator sections are submitted in one cassette labeled A1. CPT Codes 88838 -------- -------- Specimen: [id number] Received: 05/25/23 Status: BRENT Galloway Num: [id number] Spec Type: Surgical Subm Dr: Jaciel Echavarria DO Tissues: A Gallbladder (GALLBLADDER) Procedures: Obdulio BAZAN/Micky L3 -------- Patient: Abigail Washington [id number] (Continued) -------- Signed (signature on file) Nikita Dunne MD 05/26/23 1220 [facility] NM STRESS/REST MULTIon 06-06 NM STRESS/REST MULTI Patient: ABIGAIL WASHINGTON Exam Date: 06/06/2022 : 1945 Gender:M Ordering : REVA SHANNON [facility] Admission #: [id number] Family : Order #: [id number] CLICK HERE TO VIEW EXAM RADIOLOGY REPORT [...] M.D. on 06/07/2022 at 07:05 Normal [facility] INSULINon 05-19-2022 Insulin 11.6 uIU/mL Normal 2.6-24.9 [facility] Comment on above: Performed By: #### I NSULIN #### [facility] [address] [place] [address] Dr. Karely Perkins CBC AUTO DIFFon 05-18-2022 BASO # 0.0 103/ul Normal 0.0-0.1 [facility] Comment on above: Performed By: #### C BC #### [facility] [address] [place] [address] Dr. Karely Perkins Basophils/100 WBC (Bld) 0.6 % Normal 0.2-2.0 [facility] Comment on above: Performed By: #### C BC #### [facility] [address] [place] [address] Dr. Karely Perkins EO # 0.2 103/ul Normal 0.0-0.7 [facility] Comment on above: Performed By: #### C BC #### [facility] [address] [place] [address] Dr. Karely Perkins Eosinophils/100 WBC (Bld) 3.9 % Normal 0.9-7.0 [facility] Comment on above: Performed By: #### C BC #### [facility] [address] [place] [address] Dr. Karely Perkins Erythrocyte distribution width (RBC) [Ratio] 12.8 % Normal 11.0-15.0 [facility] Comment on above: Performed By: #### C BC #### [facility] [address] [place] [address] Dr. Karely Perkins Hematocrit (Bld) [Volume fraction] 48.4 % Normal 42.0-54.0 [facility] Comment on above: Performed By: #### C BC #### [facility] [address] [place] [address] Dr. Karely Perkins Hemoglobin (Bld) [Mass/Vol] 15.8 g/dL Normal 14.0-18.0 [facility] Comment on above: Performed By: #### C BC #### [facility] [address] [place] [address] Dr. Karely Perkins IG # 0.01 10e3/ul Normal 0.00-0.03 [facility] Comment on above: Performed By: #### C BC #### [facility] [address] [place] [address] Dr. Karely Perkins IG % 0.2 % Normal 0.0-0.5 [facility] Comment on above: Performed By: #### C BC #### [facility] [address] [place] [address] Dr. Karely Perkins LYMPH # 1.4 103/ul Normal 1.2-3.8 [facility] Comment on above: Performed By: #### C BC #### [facility] [address] [place] [address] Dr. Karely Perkins Lymphocytes/100 WBC (Bld) 28.5 % Normal 20.5-60.0 [facility] Comment on above: Performed By: #### C BC #### [facility] [address] [place] [address] Dr. Karely Perkins MANUAL DIFF REQ NO Normal [facility] Comment on above: Performed By: #### C BC #### [facility] [address] [place] [address] Dr. Karely Perkins MCH (RBC) [Entitic mass] 28.7 pg Normal 25.9-34.0 [facility] Comment on above: Performed By: #### C BC #### [facility] [address] [place] [address] Dr. Karely Perkins MCHC (RBC) [Mass/Vol] 32.6 g/dL Normal 29.9-35.2 [facility] Comment on above: Performed By: #### C BC #### [facility] [address] [place] [address] Dr. Karely Perkins MCV (RBC) [Entitic vol] 87.8 fL Normal 80.0-94.0 [facility] Comment on above: Performed By: #### C BC #### [facility] [address] [place] [address] Dr. Karely Perkins MONO # 0.5 103/ul Normal 0.3-0.8 [facility] Comment on above: Performed By: #### C BC #### [facility] [address] [place] [address] Dr. Karely Perkins Monocytes/100 WBC (Bld) 10.3 % Normal 1.7-12.0 [facility] Comment on above: Performed By: #### C BC #### [facility] [address] [place] [address] Dr. Karely Perkins NEUT # 2.7 103/ul Normal 1.4-6.5 [facility] Comment on above: Performed By: #### C BC #### [facility] [address] [place] [address] Dr. Karely Perkins Neutrophils/100 WBC (Bld) 56.5 % Normal 43.0-75.0 [facility] Comment on above: Performed By: #### C BC #### [facility] [address] [place] [address] Dr. Karely Perkins Platelet mean volume (Bld) [Entitic vol] 9.3 fL Critically low 9.5-13.5 [facility] Comment on above: Performed By: #### C BC #### [facility] [address] [place] [address] Dr. Karely Perkins PLT 184 103/ul Normal 150-450 [facility] Comment on above: Performed By: #### C BC #### [facility] [address] [place] [address] Dr. Karely Perkins RBC 5.51 106/ul Normal 4.70-6.10 [facility] Comment on above: Performed By: #### C BC #### [facility] [address] [place] [address] Dr. Karely Perkins WBC 4.9 103/ul Normal 4.0-11.0 [facility] Comment on above: Performed By: #### C BC #### [facility] [address] [place] [address] Dr. Karely Perkins GLYCOHEMOGLOBIN A1Con 03-15- 2023 ADA RECOMMENDATION SEE BELOW Normal [facility] Comment on above: Result Comment: ADA RECOMMENDED LIMIT 4.0 - 6.0 ADA THERAPEUTIC TARGET < 7.0 ACTION SUGGESTED > 7.0 Performed By: #### A 1C #### [facility] [address] [place] [address] Dr. Karely Perkins Glucose [Mass/Vol] 120 mg/dL Normal [facility] Comment on above: Performed By: #### A 1C #### [facility] [address] [place] [address] Dr. Karely Perkins HbA1c (Bld) [Mass fraction] 5.8 % Normal 4.5-6.2 [facility] Comment on above: Performed By: #### A 1C #### [facility] [address] [place] [address] Dr. Karely Perkins LIPID PROFILEon 05-18-2022 CHOL-HDL RATIO NORM SEE BELOW Normal [facility] Comment on above: Result Comment: 3.3 - 4.4 LOW RISK 4.4 - 7.1 AVERAGE RISK 7.1 - 11.0 MODERATE RISK >11.0 HIGH RISK Performed By: #### C MP, LIPID #### [facility] [address] [place] [address] Dr. Karely Perkins Cholesterol [Mass/Vol] 169 mg/dL Normal <=200 [facility] Comment on above: Performed By: #### C MP, LIPID #### [facility] [address] [place] [address] Dr. Karely Perkins Cholesterol in HDL [Mass/Vol] 74 mg/dL Critically high 40-60 [facility] Comment on above: Performed By: #### C MP, LIPID #### [facility] [address] [address] [address] Karely Perkins Cholesterol in LDL [Mass/Vol] 80.6 mg/dL Normal [facility] Comment on above: Performed By: #### C MP, LIPID #### [facility] [address] [place] [address] Dr. Karely Perkins Cholesterol.total/C holesterol in HDL [Mass ratio] 2.3 {ratio} Normal [facility] Comment on above: Performed By: #### C MP, LIPID #### [facility] [address] [address] [address] Karely Perkins HDL NORMAL > or = 60 mg/dl - LO W CARDIOVASCULAR RISK <40 mg/dl - HIGH CARDIOVASCULAR RISK Normal [facility] Comment on above: Performed By: #### C MP, LIPID #### [facility] [address] [place] [address] Dr. Karely Perkins LDL CALC NORMAL SEE BELOW Normal [facility] Comment on above: Result Comment: <100 mg/dl OPTIMAL 100 - 129 mg/dl NEAR OR ABOVE OPTIMAL 130 - 159 mg/dl BORDERLINE HIGH 160 - 189 mg/dl HIGH >190 mg/dl VERY HIGH Performed By: #### C MP, LIPID #### [facility] [address] [place] [address] Dr. Karely Perkins Triglyceride [Mass/Vol] 72 mg/dL Normal <=150 [facility] Comment on above: Performed By: #### C MP, LIPID #### [facility] [address] [place] [address] Dr. Karely Perkins VLDL CALC 14.4 mg/dL Normal [facility] Comment on above: Performed By: #### C MP, LIPID #### [facility] [address] [place] [address] Dr. Karely Perkins PROF 14(COMP METB)on 023 Albumin [Mass/Vol] 3.7 g/dL Normal 3.4-5.0 [facility] Comment on above: Performed By: #### C MP, LIPID #### [facility] [address] [place] [address] Dr. Karely Perkins Albumin/Globulin [Mass ratio] 1.0 {ratio} Normal [facility] Comment on above: Performed By: #### C MP, LIPID #### [facility] [address] [place] [address] Dr. Karely Perkins ALP [Catalytic activity/Vol] 117 U/L Critically high 46-116 [facility] Comment on above: Performed By: #### C MP, LIPID #### [facility] [address] [address] [address] Karely Perkins ALT [Catalytic activity/Vol] 24 U/L Normal 16-63 [facility] Comment on above: Performed By: #### C MP, LIPID #### [facility] [address] [place] [address] Dr. Karely Perkins Anion gap [Moles/Vol] 9.4 mmol/L Normal [facility] Comment on above: Performed By: #### C MP, LIPID #### [facility] [address] [place] [address] Dr. Karely Perkins AST [Catalytic activity/Vol] 34 U/L Normal 15-37 [facility] Comment on above: Performed By: #### C MP, LIPID #### [facility] [address] [place] [address] Dr. Karely Perkins Bilirubin [Mass/Vol] 0.7 mg/dL Normal 0.2-1.0 [facility] Comment on above: Performed By: #### C MP, LIPID #### [facility] [address] [place] [address] Dr. Karely Perkins Calcium [Mass/Vol] 9.0 mg/dL Normal 8.5-10.1 [facility] Comment on above: Performed By: #### C MP, LIPID #### [facility] [address] [place] [address] Dr. Karely Perkins Chloride [Moles/Vol] 108 mmol/L Critically high 98-107 [facility] Comment on above: Performed By: #### C MP, LIPID #### [facility] [address] [place] [address] Dr. Karely Perkins CO2 [Moles/Vol] 30.7 mmol/L Normal 21.0-32.0 [facility] Comment on above: Performed By: #### C MP, LIPID #### [facility] [address] [place] [address] Dr. Kareyl Perkins Creatinine [Mass/Vol] 0.90 mg/dL Normal 0.70-1.30 [facility] Comment on above: Performed By: #### C MP, LIPID #### [facility] [address] [place] [address] Dr. Karely Perkins EGFR-AF KITTITIAN >60 Normal >=60 [facility] Comment on above: Performed By: #### C MP, LIPID #### [facility] [address] [place] [address] Dr. Karely Perkins EGFR-NON AF KITTITIAN >60 Normal >=60 [facility] Comment on above: Performed By: #### C MP, LIPID #### [facility] [address] [address] [address] Karely Perkins Globulin (S) [Mass/Vol] 3.6 g/dL Normal [facility] Comment on above: Performed By: #### C MP, LIPID #### [facility] [address] [place] [address] Dr. Karely Perkins Glucose [Mass/Vol] 109 mg/dL Critically high 74-106 [facility] Comment on above: Performed By: #### C MP, LIPID #### [facility] [address] [place] [address] Dr. Karely Perkins Potassium [Moles/Vol] 4.1 mmol/L Normal 3.5-5.1 [facility] Comment on above: Performed By: #### C MP, LIPID #### [facility] [address] [place] [address] Dr. Karely Perkins Protein [Mass/Vol] 7.3 g/dL Normal 6.4-8.2 [facility] Comment on above: Performed By: #### C MP, LIPID #### [facility] [address] [place] [address] Dr. Karely Perkins Sodium [Moles/Vol] 144 mmol/L Normal 136-145 [facility] Comment on above: Performed By: #### C MP, LIPID #### [facility] [address] [place] [address] Dr. Karely Perkins Urea nitrogen [Mass/Vol] 20.0 mg/dL Critically high 7.0-18.0 [facility] Comment on above: Performed By: #### C MP, LIPID #### [facility] [address] [address] [address] Karely Perkins Urea nitrogen/Creatinine [Mass ratio] 22.2 mg/mg Normal [facility] Comment on above: Performed By: #### C MP, LIPID #### [facility] [id number] Karely Perkins US SCROTUMon 11-18-2021 US [...] HOYOS Date: 2021-11-18 12:10 Normal [facility] Vital Signs Date Time Vital Sign Value Performing Clinician Lucius keane 07-11-2023 13:24-0400 Blood Pressure Location Jaciel HENRY [facility] 07-11-2023 13:24-0400 Diastolic blood pressure 80 mm[Hg] Jaciel HENRY [facility] 07-11-2023 13:24-0400 Heart rate 72 /min Jaciel HENRY [facility] 07-11-2023 13:24-0400 Respiratory rate 16 /min Jaciel HENRY [facility] 07-11-2023 13:24-0400 Systolic blood pressure 126 mm[Hg] Jaciel HENRY [facility] 06-07-2023 11:36-0400 Body height 170.2 cm El Mccabe RISK MANAGEMENT ANALYST-TRANSPORTATION REFRIGERATION TECHNICIAN Work Phone: [employer] 06-07-2023 11:36-0400 Body mass index (BMI) [Ratio] 25.31 kg/m2 El Mccabe RISK MANAGEMENT ANALYST-TRANSPORTATION REFRIGERATION TECHNICIAN Work Phone: [employer] 06-07-2023 11:36-0400 Body weight 73.3 kg El Mccabe RISK MANAGEMENT ANALYST-TRANSPORTATION REFRIGERATION TECHNICIAN Work Phone: [employer] 06-07-2023 11:36-0400 Diastolic blood pressure 95 mm[Hg] Elulysses Mccabe RISK MANAGEMENT ANALYST-TRANSPORTATION REFRIGERATION TECHNICIAN Work Phone: [employer] 06-07-2023 11:36-0400 Heart rate 81 /min El Mccabe RISK MANAGEMENT ANALYST-TRANSPORTATION REFRIGERATION TECHNICIAN Work Phone: [employer] 06-07-2023 11:36-0400 Systolic blood pressure 178 mm[Hg] ElFuturelyticsoll RISK MANAGEMENT ANALYST-TRANSPORTATION REFRIGERATION TECHNICIAN Work Phone: [facility] [employer] [facility] Encounters Encounter Date Encounter Type Care Provider Facility Start: 10-18-2023 ambulatory Renate Brock Facility:[facility] Start: 07-20-2023 End: 07-20-2023 ambulatory [facility] Start: 07-20-2023 End: 07-20-2023 ambulatory AJCIEL ECHAVARRIA [facility] Start: 07-11-2023 End: 07-12-2023 ambulatory [facility] Facility:[facility] Start: 07-11-2023 End: 07-11-2023 Patient encounter procedure Jaciel HENRY [facility] Start: 06-19-2023 ambulatory Renate Brock Facility:[facility] Start: 06-16-2023 ambulatory Renate Brock Facility:[facility] Start: 06-07-2023 End: 06-07-2023 ambulatory EL MCCABE [facility] Start: 06-07-2023 End: 06-07-2023 Patient encounter procedure El Mccabe RISK MANAGEMENT ANALYST-TRANSPORTATION REFRIGERATION TECHNICIAN Work Phone: [facility] Comment on above: Status post laparosc opic cholecystectomy (Primary Dx); Status post umbilical hernia repair, follow-up exam Start: 05-31-2023 Orders Only Not In System Ref Prov [facility] Start: 05-25-2023 End: 05-25-2023 ambulatory Jaciel Echavarria Facility:[facility] Start: 05-25-2023 End: 05-25-2023 ambulatory DO Jaciel Echavarria Work Phone: [facility] Work Phone: Start: 05-25-2023 End: 05-25-2023 Departed Referred DO Jaciel Davidderrick Work Phone: [facility] Start: 06-06-2022 End: 06-07-2022 ambulatory REVA SHANNON Facility:[facility] Start: 05-18-2022 End: 05-19-2022 ambulatory REVA SHANNON Facility:[facility] Start: 11-18-2021 End: 11-19-2021 ambulatory REVA SHANNON Facility:[facility] Start: 05-07-2020 End: 05-07-2020 Patient encounter procedure Wendy Botelloer Work Phone: [facility] Work Phone: Procedures Date Procedure Procedure Detail Performing Clinician Start: 05-27-2023 MULTIPLE LABS Not In System Ref Prov Start: 05-25-2023 Level i surg pathology gross examination only Not In System Ref Prov Start: 05-18-2022 PSA screening REVA SHANNON Comment on above: Performed By: #### PSASC #### [facility] [address] [place] [address] Dr. Karely Perkins Start: 03-04-2021 Imm. administration COVID19 Moderna dose 1 Wendy Flood Work Phone: Start: 05-07-2020 SARS-CoV-2 vaccine, 0.5ml Moderna Wendy Flood Work Phone: Start: 09-23-2015 Colonoscopy Jaciel HENRY Start: 09-23-2015 Esophagogastroduodenoscopy Jaciel HENRY Excision of basal cell carcinoma Jaciel HENRY Comment on above: back Excision of squamous cell carcinoma Jaciel HENRY Comment on above: left shoulder History of cholecystectomy Statu s post laparoscopic cholecystectomy El Mccabe RISK MANAGEMENT ANALYST-TRANSPORTATION REFRIGERATION TECHNICIAN Work Phone: Repair of umbilical hernia Jesusita HENRY Tonsillectomy Jaciel HENRY Plan of Treatment Date Care Activity Detail Author Start: 06-06-2024 Adult BMI Screening Adult BMI Screening [facility] [employer] Start: 06-06-2024 Tobacco Screening Tobacco Screening [facility] [employer] [facility] Start: 11-05-2023 Influenza vaccination Influenza Vaccine [facility] Start: 06-04-2020 2nd Dose- COVID Vaccine [facility] Work Phone: Start: 08-23-2011 Fall Risk Screening Fall Risk Screening [facility] Start: 1996 Administration of varicella zoster vaccine Zoster (Shingles) Vaccine (1 of 2) [facility] Start: 1965 DTaP,Tdap and Td Vaccines (1 - Tdap) DTaP,Tdap and Td Vaccines (1 - Tdap) [facility] [employer] [facility] Start: 1964 Adult BMI Follow Up Plan Adult BMI Follow Up Plan [facility] Start: 1958 Depression Screening Depression Screening [facility] Start: 1946 Medicare Annual Wellness Visit Medicare Annual Wellness Visit [facility] Immunizations Immunization Date Immunization Notes Care Provider Fa cility 11-23-2022 influenza virus vaccine, unspecified formulation El Mccabe RISK MANAGEMENT ANALYST-TRANSPORTATION REFRIGERATION TECHNICIAN Work Phone: [facility] 12-14-2021 SARS-CoV-2 (COVID-19 ) [id number] Jaciel HENRY [facility] 06-29-2021 SARS-CoV-2 (COVID-19 ) mRNA BNT-162b2 vax Jaciel HENRY [facility] 01-06-2021 SARS-CoV-2 (COVID-19 ) mRNA-1273 vaccine Jaciel HENRY [facility] 06-04-2020 SARS-CoV-2 (COVID-19 ) mRNA-1273 vaccine Jaciel HENRY [facility] 05-07-2020 2nd Dose MODERNA COVID-19 Vaccine; Translations: [Moderna COVID-19 Vaccine] Luiz Jimenez [facility] Comment on above: Note: Patient tolera keely well. No signs or symptoms of adverse reactions. Patient waited a minimum of 15 minutes. Payers Date Payer Category Payer Self-pay 2022 Medicare [employer] MEDICARE A ETNA MEDICARE PLAN (PPO) [id number] 2022-Present [phone] [address] [place] [address] [id number] 2011 Unknown 1 - Medicare [facility] PPS [id number] 1959 Medicare [id number] 1959 Medicare [id number] 1959 Unknown [id number] 9.5.10.6.3 1946 Unknown [id number] [id number] 1946 Unknown [id number] [id number] 1946 Unknown [id number] [id number] 1946 Unknown [id number] 2.16.840.1.215328.3.579.2.1286 1946 Unknown [id number] [id number] 1946 Unknown [id number] 2.16.840.1.006096.3.579.2.128 1946 Unknown [id number] [id number] 1946 Unknown [id number] [id number] 1946 Unknown [id number] 2.16840.1.106006.3.579.2.727 1946 Unknown [id number] 2.16.840.1.804146.3.579.2.1286 1946 Unknown [id number] [id number] 1946 Unknown [id number] [id number] Medicare Medicare Outpatient [id number] Unknown [facility] Health Claims [id number] Unknown [id number] Social History Date Type Detail Facility Tobacco smoking status Unknown if ever sm [facility] Start: 1945 Sex Assigned At Male F [facility] Start: 08-15-2018 End: 06-07-2023 History of Social function [facility] Start: 08-15-2018 End: 06-07-2023 Childcare [facility] Childcare Unknown [facility] Start: 1945 Sex Assigned At Not on file P [facility] Start: 06-07-2023 End: 07-11-2023 Tobacco smoking status NHIS Ex-smoker [facility] End: 03-06-1983 History of tobacco use Current smoker [facility] End: 03-06-1983 History of tobacco use Cigarette Smoker [facility] Start: 06-07-2023 Tobacco use and exposure Smokeless tobacco non-user [facility] Start: 06-07-2023 Alcohol intake Current drinke r of alcohol (finding) [facility] Functional Status Date Assessment Result Facility 07-11-2023 Functional Status N/A [facility] Clinical Note 07-11-2023 Note Date & Type [...] in stools, no abd complaints; last colonoscopy 2016 with sigmoid diverticulosis; abd operations significant for [...] virus vaccine, inactivated 11/23/2022 Recorded SARS-CoV-2 (COVID-19) [id number].[id number] 12/14/2021 Recorded SARS-CoV-2 (COVID-19) mRNA BNT-162b2 vax 06/29/2021 Recorded SARS-CoV-2 (COVID-19) mRNA-1273 vaccine 01/06/2021 Recorded SARS-CoV-2 (COVID-19) mRNA-1273 vaccine 06/04/2020 Recorded SARS-CoV-2 (COVID-19) mRNA-1273 vaccine 05/07/2020 Recorded [facility] Comment on above: Result Comment: Elec tronically Signed By: ELAINE FRANCISCO, Jaciel Hall\Date and Time Signed: 07/11/23 13:45 EDT History of Present illness Narrative 06-07-2023 El Mccabe, RISK MANAGEMENT ANALYST-TRANSPORTATION REFRIGERATION TECHNICIAN - 06/07/2023 11:30 AM EDT Note Date [...] Status post laparoscopic cholecystectomy [Z90.49] JEVON SINGH [facility] [place] This note was created with the assistance of a speech recognition program. While intending to generate a timely document that accurately reflects the content of the visit, no guarantee can be provided that every grammatical or spelling mistake has been or will be identified or corrected. Thank you for your understanding. JEVON Singh 06/07/23 1150 documented in this encounter [facility] Evaluation + Plan note Note Date & Type Note Facility Evaluation + Plan note No data available for this section [facility] [place] Evaluation note Note Date & Type Note Facility Evaluation note No [facility] Evaluation note Note Date & Type Note Facility Evaluation note Diagnosis Status post laparoscopic cholecystectomy- Primary Other postprocedural status Status post umbilical hernia repair, follow-up exam Follow-up examination, following other surgery documented in this encounter [facility] Hospital Discharge instructions Note Date & Type Note Facility Hospital Discharge instructions No data available for this section [facility] [place] Instructions Note Date & Type Note Facility Instructions Not on filedocumented in this en counter [facility] Instructions Note Date & Type Note Facility Instructions Not on filedocumented in this en counter [facility] Progress note Note Date & Type Note Facility Progress note No data available for this section [facility] Reason for Referral No Reason for Referral Recorded No data available for this section Assessments Findings Encounter Date Encounter for Immunization 1st COVID Vaccine susan kaley Nguyen Remigio NGUYEN 05/07/2020 Instructions Instructions not supported for this document type No Instructions Recorded History of Present Illness History of Present Illness not supported for this document type No History of Present Illness Recorded Family History Includes: Family History in patient's chart No Family History RecordedNo Family History Records FoundNo Family History Records Found No data available for this section No Family History Records FoundNo Family History Records FoundNo Family History Records Found Review of System [...] and content) DATE CREATED AUTHOR 06/11/2022 [facility] DATE CREATED AUTHOR AUTHOR'S ORGANIZ ATION 05/27/[address] [facility] DATE CREATED AUTHOR AUTHOR'S ORGANIZ ATION 07/22/2023 [facility] DATE CREATED AUTHOR AUTHOR'S ORGANIZ ATION 07/28/2023 [facility] DATE CREATED AUTHOR AUTHOR'S ORGANIZ ATION 08/06/2023 [facility] Care Teams (unrecognized sec tion and content) Team Status: Inactive Member Role Status Dates Jaciel Echavarria DO Attending Provider Active Start: May 25, 2023 End: May 25, 2023 Wrapper Stitcher Relationship Specialty Start Date End Date Reva Shannon, RISK MANAGEMENT ANALYST-TRANSPORTATION REFRIGERATION TECHNICIAN [address] [place] [address] PCP - General Family Medicine 06/01/23 Goals (unrecognized section and content) Goals may be documented in a n alternate section Reason for Visit (unrecogniz ed section and content) Reason Comments Post-op Post op davinci chol ecystectomy and umbilical hernia repair performed 05/24/23 at [facility] FOR RECORDS PERTAINING TO PATIENTS WHO [...] BE BASED ON THE PRIMARY CLINICAL RECORDS. [employer] provides no warranty or guarantee of the accuracy or completeness of information in this document.
[2023-08-09] MEDS: LACTATED RINGER'S SOLUTION 1,000 ML 50 ML IV (10:17)
[2023-08-09 13:24] VITALS: BP 105/69; PULSE 57; TEMP 36.1; O2SAT 95
[2023-08-09 13:39] VITALS: BP 125/74; PULSE 67; O2SAT 99
[2023-08-09 13:54] VITALS: BP 130/91; PULSE 62; TEMP 36.2; O2SAT 97
== END 2023-08-09 13:54 | disposition home or self-care (01) ==
PROVIDERS: PCP Nurse Practitioner Family; Visit Provider Surgery
PROC: (CPT 45380; principal; 2023-08-09 11:15)
DX: R19.5 Other fecal abnormalities (principal); K63.5 Polyp of colon; K57.30 Diverticulosis of large intestine without perforation or abscess without bleeding; Z80.0 Family history of malignant neoplasm of digestive organs; E78.5 Hyperlipidemia, unspecified; Z90.49 Acquired absence of other specified parts of digestive tract; Z87.891 Personal history of nicotine dependence; I10 Essential (primary) hypertension
CPT/HCPCS: 45380; 88305; J2704

== ENCOUNTER 2024-01-03 09:47 | Outpatient (OUT) | payer MEDICARE, SELFPAY ==
--- OUTSIDE RECORDS SUMMARY | 2024-01-03 10:10 | XMS_ITS | CCD ---
Author Organization [facility] Inform ion [facility] Care Team Providers Care Jig Fitter Name Role Phone Luiz Jimenez Unavailable REVA SHANNON Admitting Unavailable SHIVA, REVA Attending Unavailable MADHAVI, [...] Consulting Unavailable DO Jaciel Echavarria Attending Provider [phone] Unavailable Primary Care Provider UnavailDafne ESCOTO, Reva S Primary Care Provider SHIVA, REVA S Primary Care Physician [phone] EL MCCABE Attending Unavailable SHIVA, REVA S Referring Unavailable SHIVA, REVA S Primary Care Unavailable SHIVA, REVA S Referring Unavailable SHIVA, REVA S Primary Care Unavailable SHIVA, REVA S Referring Unavailable SHIVA, REVA S Primary Care Unavailable JACIEL ECHAVARRIA Attending Unavailable JACIEL ECHAVARRIA Referring Unavailable SHIVA, REVA S Primary Care Unavailable JACIEL ECHAVARRIA Attending Unavailable JACIEL ECHAVARRIA Referring Unavailable SHIVA, REVA S Primary Care Unavailable Zack Gibson Referring Unavailable SHIVA, REVA S Primary Care Unavailable MD Jaciel Brandt Attending Provider Jaciel Echavarria Admitting Unavailable Jaciel Echavarria Attending Unavailable Jaciel Brandt Attending Unavailable Jaciel Brandt Admitting Unavailable Jaciel BRANDT Attending Unavailable Renate Brock Attending Unavailable REVA SHANNON Referring Unavailable REVA SHANNON Referring Unavailable Jaciel BRANDT Attending Unavailable Jaciel BRANDT Attending Unavailable Jaciel BRANDT Attending Unavailable Allergies Allergy Classification Reported Allergen(s) Allergy Type Date of Onset Reaction(s) Facility (1 source) No Known Medication Allergies; Translations: [No Known Medication Allergies] Propensity to adverse reactions (disorder) [facility] Repository Medications Current Medications Medication Drug Class(es) [...] 0 Active simvastatin 20 mg oral tablet (3 sources) HMG-CoA Reductase Inhibitor Start: 06-28-2023 take [...] Date Documented Da te Episodic/Chronic Anxiety disorders (2 sources) Anxiety 06-28-2023 Chronic Diabetes mellitus without complication (4 sources) Hyperglycemia, unspecified; Translations: [HYPERGLYCEMIA UNSPECIFIED] Onset: 05-18-2022 Episodic Diseases of white blood cells (1 source) Leukocytosis 08-23-2023 Chronic Disorders of lipid metabolism (4 sources) Hyperlipidemia, unspecified; Translations: [Hyperlipidemia] Onset: 06-10-2022 06-28-2023 Chronic Diverticulosis and diverticulitis (2 sources) Diverticulosis of sigmoid colon 06-28-2023 Chronic Essential hypertension (1 source) Essential hypertension 08-23-2023 Chronic Immunizations and screening for infectious disease [...] than malignant neoplasm] Onset: 06-07-2023 Episodic Other and unspecified benign neoplasm (2 sources) Benign neoplasm of descending colon; Translations: [Benign neoplasm of descending colon] Onset: 08-29-2023 Episodic Other gastrointestinal disorders (1 source) Abnormal feces; Translations: [Other fecal abnormalities] Onset: 07-11-2023 Episodic Other liver diseases (1 source) Lesion of liver 08-23-2023 Chronic Other nutritional; endocrine; and metabolic disorders (2 sources) Overweight 06-28-2023 Episodic Other nutritional; endocrine; and metabolic disorders (2 sources) Overweight in adulthood with body mass index of 25 or more but less than 30 07-11-2023 Episodic Other screening for suspected conditions (not mental disorders or infectious disease) (4 sources) Encounter for screening for malignant neoplasm [...] Test Name Value Interpretation Reference Range Facility Ambulatory Visit Summaryon 0 11-21-2023 Ambulatory Visit Summary Ambulatory Visit Summary PADMINIABIGAIL :1945 Visit Date:11/21/2023 Ambulatory Visit Instructions Your Care Team Attending Physician - ELAINE FRANCISCO, Jaciel Obando Primary Care Physician - REVA SHANNON CNP This Is Your Medications List Contact prescribing physician if questions or concerns omeprazole (Prilosec OTC) simvastatin (simvastatin 20 mg Tab) Procedures Performed Colonoscopy (08/09/2023), Colonoscopy (09/23/2015), EGD - esophagogastroduodenoscopy (09/23/2015), Cholecystectomy, Excision of basal cell carcinoma, Excision of squamous cell carcinoma, Repair of umbilical hernia, Tonsillectomy. Discharge Vitals Heart Rate (Peripheral) 72 Respiratory Rate 16 Blood Pressure 136/84 Height 170 cm Height 67 in Weight 70 kg Weight 154 lb BMI 24.22 Medications What How Much When Instructions Unchanged omeprazole (Prilosec OTC) 20 Milligram By Mouth Every day Contact prescribing physician if questions or concerns Unchanged simvastatin (simvastatin 20 mg Tab) 1 Tablets By Mouth Once a day (in the evening) Contact prescribing physician if questions or concerns Allergies No Known Allergies No Known Medication Allergies Problems Ongoing - Any problem that you are currently receiving treatment for. Anxiety Benign neoplasm of descending colon Diverticulosis Essential hypertension History of colon polyps Hypercholesterolemia Hyperlipidemia Lesion of liver Leukocytosis Overweight Positive colorectal cancer screening using Cologuard test Sigmoid diverticulosis Historical - Any problem that you are no longer receiving treatment for. BMI 25.0-25.9,adult Patient Survey You may receive a survey via text or e-mail asking about your office visit. Please share your experience with us by completing your survey. We appreciate your feedback and thank you for choosing us for your care. [facility] Ambulatory Visit Summaryon 0 08-29-2023 Ambulatory Visit Summary ABIGAIL WASHINGTON :1945 Visit Date:08/29/2023 Ambulatory Visit Instructions Your Care Team Attending Physician - ELAINE FRANCISCO, Jaciel Obando Primary Care Physician - REVA SHANNON CNP This Is Your Medications List simvastatin (simvastatin 20 mg Tab) Procedures Performed Colonoscopy (08/09/2023), Colonoscopy (09/23/2015), EGD - esophagogastroduodenoscopy (09/23/2015), Cholecystectomy, Excision of basal cell carcinoma, Excision of squamous cell carcinoma, Repair of umbilical hernia, Tonsillectomy. What to do next Scheduled Follow-Up Appointments Monday 8:15 AM EDT With: Vinod FRANCISCO, Renate Morales Where: [facility] Iveth Normal [facility] General Surgery Office/Clini c Noteon 08-29-2023 General Surgery Office/Clinic Note Chief Complaint post operative follow up HPI Staff 20 day post operative follow up post colonoscopy with descending polypectomy. History of Present Illness s/p colonoscopy due to positive Cologuard, small serrated polyp removed from descending colon; doing well, denies abd pain or blood in stools; also moderate diverticulosis. Review of Systems ROS - Provider Constitutional: no fever, no [...] been reviewed and are negative or noncontributory. Assessment/Plan 1. Benign neoplasm of descending colon (D12.4: Benign neoplasm of descending colon) recommend surveillance colonoscopy in 5 years if in good health; call sooner if problems/questions. Follow-up No qualifying data available Problem List/Past Medical History Ongoing Anxiety Benign neoplasm of descending colon Essential hypertension Hypercholesterolemia Hyperlipidemia Lesion of liver Leukocytosis Overweight Positive colorectal cancer screening using Cologuard test Sigmoid diverticulosis Historical BMI 25.0-25.9,adult Procedure/Surgical History Colonoscopy (08/09/2023), Colonoscopy (09/23/2015), EGD - esophagogastroduodenoscopy (09/23/2015), Cholecystectomy, [...] virus vaccine, inactivated 11/23/2022 Recorded SARS-CoV-2 (COVID-19) [id number] 12/14/2021 Recorded SARS-CoV-2 (COVID-19) mRNA BNT-162b2 vax 06/29/2021 Recorded SARS-CoV-2 (COVID-19) mRNA-1273 vaccine 01/06/2021 Recorded SARS-CoV-2 (COVID-19) mRNA-1273 vaccine 06/04/2020 Recorded SARS-CoV-2 (COVID-19) mRNA-1273 vaccine 05/07/2020 Recorded Normal [facility] Comment on above: Result Comment: Elec tronically Signed By: ELAINE FRANCISCO, Jaciel Hall\Date and Time Signed: 08/29/23 16:38 EDT Reminderson 08-29-2023 Reminders - From: Hortensia Rivera LPN To: N - Clinical; Sent: 08/29/2023 15:20:02 EDT Show up: 07/08/2028 07:00:00 EDT Subject: colonoscopy recall Due Date/Time: 08/08/2028 07:00:00 EDT Reminder/Recall Patient due for surveillance colonoscopy 08/08/2028 due to history of polyp/family history of colon cancer. Normal [facility] Pathology Noteon 08-20-2023 Pathology Note [id number]#1.00TIFF Normal [facility] Outside Colonoscopyon 2023 Outside Colonoscopy [id number]#1.00TIFF Normal [facility] Insurance Correspondenceon 0 07-26-2023 Insurance Correspondence [id number]#1.00TIFF Normal [facility] ASPIRATE CULTUREon 4 Bacteria identified Aer cx Nom (Asp) GRAM STAIN 10 to 24 WHITE BLOOD CELLS/LPF 0 SQUAMOUS EPITHELIAL CELLS/LPF NO ORGANISMS SEEN CULTURE RESULTS NO GROWTH 3 DAYS Normal [facility] Comment on above: Performed By: #### 5 97-5 #### [facility] ([id number]) [address] [place] [address], [address] [place] [address] [address] [facility] 07-20-2023 Albumin [Mass/Vol] 3.5 g/dL Normal 3.2-5.3 [facility] Comment on above: Performed By: #### C MP #### [facility] ([id number]) [address] [place] [address] 64053 ALP [Catalytic activity/Vol] 298 U/L High 39-130 [facility] Comment on above: Performed By: #### C MP #### [facility] ([id number]) [address] [place] [address] 42936 ALT [Catalytic activity/Vol] 32 U/L Normal 0-40 [facility] Comment on above: Performed By: #### C MP #### [facility] ([id number]) [address] [place] [address] 20628 Anion gap [Moles/Vol] 10 mmol/L Normal 5-15 [facility] Comment on above: Performed By: #### C MP #### [facility] ([id number]) [address] [place] [address] 44621 AST [Catalytic activity/Vol] 36 U/L Normal 0-41 [facility] Comment on above: Performed By: #### C MP #### [facility] ([id number]) [address] [place] [address] 00043 Bilirubin [Mass/Vol] 1.0 mg/dL Normal 0.3-1.2 [facility] Comment on above: Performed By: #### C MP #### [facility] ([id number]) [address] [place] [address] 20212 Calcium [Mass/Vol] 8.8 mg/dL Normal 8.5-10.5 [facility] Comment on above: Performed By: #### C MP #### [facility] ([id number]) [address] [place] [address] 19356 Chloride [Moles/Vol] 101 mmol/L Normal 98-109 [facility] Comment on above: Performed By: #### C MP #### [facility] ([id number]) [address] [place] [address] 91411 CO2 [Moles/Vol] 25 mmol/L Normal 22-32 [facility] Comment on above: Performed By: #### C MP #### [facility] ([id number]) [address] [place] [address] 81163 Creatinine [Mass/Vol] 0.89 mg/dL Normal 0.70-1.20 [facility] Comment on above: Result Comment: METH OD TRACEABLE TO IDMS STANDARD Performed By: #### C MP #### [facility] ([id number]) [address] [place] [address] 61262 GFR/1.73 sq M.predicted among non-blacks MDRD (S/P/Bld) [Vol rate/Area] 89 mL/min/{1.73_m2} Normal >59 [facility] Comment on above: Result Comment: Reported eGFR is based on the CKD-EPI 2020 equation that does not use a race coefficient. Performed By: #### C MP #### [facility] ([id number]) [address] [place] [address] 32473 Glucose [Mass/Vol] 104 mg/dL High 65-99 [facility] Comment on above: Performed By: #### C MP #### [facility] ([id number]) [address] [place] [address] 44851 Potassium [Moles/Vol] 4.0 mmol/L Normal 3.5-5.0 [facility] Comment on above: Performed By: #### C MP #### [facility] ([id number]) [address] [place] [address] 47394 Protein [Mass/Vol] 7.8 g/dL Normal 6.0-8.0 [facility] Comment on above: Performed By: #### C MP #### [facility] ([id number]) [address] [place] [address] 39581 Sodium [Moles/Vol] 136 mmol/L Normal 134-146 [facility] Comment on above: Performed By: #### C MP #### [facility] ([id number]) [address] [place] [address] 42183 Urea nitrogen [Mass/Vol] 17 mg/dL Normal 5-27 [facility] Comment on above: Performed By: #### C MP #### [facility] ([id number]) [address] [place] [address] 62521 Cytologyon 07-20-2023 Cytology Normal [facility] Comment on above: Result Comment: [facility] [address] [place] [address] Cytology Consultation Patient Name:ABIGAIL WASHINGTON:1945 (Age: 77)Gender:MTaken:07/20/2023eported:07/21/2023 11:52Physician(s):Zack Gibson M.D. ([phone])Copy To:Jaciel Echavarria D.O. Rec. #:[id number]: #[id number] Final Cytologic Diagnosis Bile leak fluid: No malignant cells identified. [facility]/07/21/2023 Interpretation performed at [facility], [address] [place] [address], License number: [id number].Electronically Signed Out By Jerrod Batista M.D. Clinical History None given. Gross Description Received was 1,600 mL of brown fluid unfixed labeled as Padmini, bile leak . CytoLyt added in lab. Specimen placed in formalin at 14:00 and had a total fixation time of 12 hours. 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 A [...] Gibson MD on 07/20/2023 12:51 PM Normal [facility] [place] HEPATOBILIARY SYS IMAGING WO PHARMACOLOGIC AGENTon [...] Wan MD on 07/20/2023 7:35 AM Normal [facility] PLATELET COUNT AND MPVon Platelet mean volume (Bld) [Entitic vol] 7.2 fL Normal 7-12 [facility] Comment on above: Performed By: #### P LTCT, PINR #### [facility] ([id number]) [address] [place] [address] 82407 Platelets (Bld) [#/Vol] 247 10*3/uL Normal 150-450 [facility] Comment on above: Performed By: #### P LTCT, PINR #### [facility] ([id number]) [address] [place] [address] 90214 PROTIME AND INRon 07-20-2023 INR Coag (PPP) [Relative time] 1.1 {INR} Normal 0.8-1.1 [facility] Comment on above: Performed By: #### P LTCT, PINR #### [facility] ([id number]) [address] [place] [address] 34927 PT Coag (PPP) [Time] 12.8 s Normal 9.8-13.2 [facility] Comment on above: Result Comment: NEW REFERENCE RANGE Performed By: #### P LTCT, PINR #### [facility] ([id number]) [address] [place] [address], [place] [address] Consent for Procedure/Surger yon 07-12-2023 Consent for Procedure/Surgery [id number]#1.00TIFF [facility] Ambulatory Visit Summaryon 0 07-11-2023 Ambulatory Visit Summary ABIGAIL WASHINGTON :1945 Visit Date:07/11/2023 Ambulatory Visit Instructions Your Diagnosis Positive colorectal cancer screening using Cologuard test Your Care Team Attending Physician - ELAINE FRANCISCO, Jaciel Obando Primary Care Physician - REVA SHANNON CNP [...] you for choosing us for your care. [facility] Facesheeton 07-11-2023 Facesheet [id number]#1.00TIFF Normal [facility] Physician Referralon 024 Physician Referral [id number]#1.00TIFF Normal [facility] Multiple labson 05-27-2023 [facility] Surgical Pathologyon 024 [facility] Leonides 05-24-2023 L Specimen: [id number] eceived: 05/25/23 Status: SOUT Req Num: [id number] Spec Type: Surgical Subm Dr: Jaciel Echavarria DO Tissues: A Gallbladder (GALLBLADDER) Procedures: HE, Gross/Micro L3 Age/ Patient Sex Location Account Attending Physician Abigail Washington 77/M LABE[facility] [id number] Jaciel Echavarria DO SPEC NUM: [id number] RECD: 05/25/23 STATUS: QUETAPatrice GALLOWAY NUM: [id number] DAMARI: 05/24/[address]: Jaciel Echavarria DO ENTERED: 05/25/[address] [facility] [address]: Gonzalez Lazaro SPEC TYPE: Surgical DEPT: [...] brown to green-de jesus and denuded. . Meat Slicer sections are submitted in one cassette labeled A1. CPT Codes 82449 -------- -------- Specimen: [id number] Received: 05/25/23 Status: BRENT Galloway Num: [id number] Spec Type: Surgical Subm Dr: Jaciel Echavarria DO Tissues: A Gallbladder (GALLBLADDER) Procedures: Obdulio BAZAN/Micky L3 -------- Patient: Abigail Washington [id number] (Continued) -------- Signed (signature on file) Nikita Dunne MD 05/26/23 1220 Normal [facility] NM STRESS/REST MULTIon 06-06 NM STRESS/REST MULTI Patient: ABIGAIL WASHINGTON Exam Date: 06/06/2022 : 1945 Gender:M Ordering : REVA SHANNON [facility] Admission #: [id number] Family : Order #: [id number] CLICK HERE TO VIEW EXAM RADIOLOGY REPORT [...] M.D. on 06/07/2022 at 07:05 Normal [facility] INSULINon 05-19-2022 Insulin 11.6 uIU/mL Normal 2.6-24.9 [facility] Comment on above: Performed By: #### I NSULIN #### [facility] [address] [address] [address] Karely Perkins CBC AUTO DIFFon 05-18-2022 BASO # 0.0 103/ul Normal 0.0-0.1 [facility] Comment on above: Performed By: #### C BC #### [facility] [address] [address] [address] Karely Perkins Basophils/100 WBC (Bld) 0.6 % Normal 0.2-2.0 [facility] Comment on above: Performed By: #### C BC #### [facility] [address] [place] [address] Dr. Karely Perkins EO # 0.2 103/ul Normal 0.0-0.7 [facility] Comment on above: Performed By: #### C BC #### [facility] [address] [place] [address] Dr. Karely Perkins Eosinophils/100 WBC (Bld) 3.9 % Normal 0.9-7.0 [facility] Comment on above: Performed By: #### C BC #### [facility] [address] [place] [address] Dr. Karely Perkins Erythrocyte distribution width (RBC) [Ratio] 12.8 % Normal 11.0-15.0 [facility] Comment on above: Performed By: #### C BC #### [facility] [address] [place] [address] Dr. Karely Perkins Hematocrit (Bld) [Volume fraction] 48.4 % Normal 42.0-54.0 [facility] Comment on above: Performed By: #### C BC #### [facility] [address] [place] [address] Dr. Karely Perkins Hemoglobin (Bld) [Mass/Vol] 15.8 g/dL Normal 14.0-18.0 [facility] Comment on above: Performed By: #### C BC #### [facility] [address] [place] [address] Dr. Karely Perkins IG # 0.01 10e3/ul Normal 0.00-0.03 [facility] Comment on above: Performed By: #### C BC #### [facility] [address] [place] [address] Dr. Karely Perkins IG % 0.2 % Normal 0.0-0.5 [facility] Comment on above: Performed By: #### C BC #### [facility] [address] [place] [address] Dr. Karely Perkins LYMPH # 1.4 103/ul Normal 1.2-3.8 [facility] Comment on above: Performed By: #### C BC #### [facility] [address] [place] [address] Dr. Karely Perkins Lymphocytes/100 WBC (Bld) 28.5 % Normal 20.5-60.0 [facility] Comment on above: Performed By: #### C BC #### [facility] [address] [place] [address] Dr. Karely Perkins MANUAL DIFF REQ NO Normal [facility] Comment on above: Performed By: #### C BC #### [facility] [address] [place] [address] Dr. Karely Perkins MCH (RBC) [Entitic mass] 28.7 pg Normal 25.9-34.0 [facility] Comment on above: Performed By: #### C BC #### [facility] [address] [place] [address] Dr. Karely Perkins MCHC (RBC) [Mass/Vol] 32.6 g/dL Normal 29.9-35.2 [facility] Comment on above: Performed By: #### C BC #### [facility] [address] [place] [address] Dr. Karely Perkins MCV (RBC) [Entitic vol] 87.8 fL Normal 80.0-94.0 [facility] Comment on above: Performed By: #### C BC #### [facility] [address] [place] [address] Dr. Karely Perkins MONO # 0.5 103/ul Normal 0.3-0.8 [facility] Comment on above: Performed By: #### C BC #### [facility] [address] [place] [address] Dr. Karely Perkins Monocytes/100 WBC (Bld) 10.3 % Normal 1.7-12.0 [facility] Comment on above: Performed By: #### C BC #### [facility] [address] [place] [address] Dr. Karely Perkins NEUT # 2.7 103/ul Normal 1.4-6.5 [facility] Comment on above: Performed By: #### C BC #### [facility] [address] [place] [address] Dr. Karely Perkins Neutrophils/100 WBC (Bld) 56.5 % Normal 43.0-75.0 [facility] Comment on above: Performed By: #### C BC #### [facility] [address] [place] [address] Dr. Karely Perkins Platelet mean volume (Bld) [Entitic vol] 9.3 fL Critically low 9.5-13.5 [facility] Comment on above: Performed By: #### C BC #### [facility] [address] [place] [address] Dr. Karely Perkins PLT 184 103/ul Normal 150-450 [facility] Comment on above: Performed By: #### C BC #### [facility] [address] [place] [address] Dr. Karely Perkins RBC 5.51 106/ul Normal 4.70-6.10 [facility] Comment on above: Performed By: #### C BC #### [facility] [address] [place] [address] Dr. Karely Perkins WBC 4.9 103/ul Normal 4.0-11.0 [facility] Comment on above: Performed By: #### C BC #### [facility] [address] [place] [address] Dr. aKrely Perkins GLYCOHEMOGLOBIN A1Con 2022 ADA RECOMMENDATION SEE BELOW Normal [facility] Comment on above: Result Comment: ADA RECOMMENDED LIMIT 4.0 - 6.0 ADA THERAPEUTIC TARGET < 7.0 ACTION SUGGESTED > 7.0 Performed By: #### A 1C #### [facility] [address] [place] [address] Dr. Karely Perkins Glucose [Mass/Vol] 120 mg/dL Normal [facility] Comment on above: Performed By: #### A 1C #### [facility] [address] [place] [address] Dr. Karely Perkins HbA1c (Bld) [Mass fraction] 5.8 % Normal 4.5-6.2 [facility] Comment on above: Performed By: #### A 1C #### [facility] [address] [place] [address] Dr. Karely Perkins LIPID PROFILEon 05-18-2022 CHOL-HDL RATIO NORM SEE BELOW Normal [facility] Comment on above: Result Comment: 3.3 - 4.4 LOW RISK 4.4 - 7.1 AVERAGE RISK 7.1 - 11.0 MODERATE RISK >11.0 HIGH RISK Performed By: #### C MP, LIPID #### [facility] [address] [address] [address] Karely Perkins Cholesterol [Mass/Vol] 169 mg/dL Normal <=200 [facility] Comment on above: Performed By: #### C MP, LIPID #### [facility] [address] [address] [address] Karely Perkins Cholesterol in HDL [Mass/Vol] 74 mg/dL Critically high 40-60 [facility] Comment on above: Performed By: #### C MP, LIPID #### [facility] [address] [address] [address] Karely Perkins Cholesterol in LDL [Mass/Vol] 80.6 mg/dL [facility] Comment on above: Performed By: #### C MP, LIPID #### [facility] [address] [address] [address] Karely Perkins Cholesterol.total/C holesterol in HDL [Mass ratio] 2.3 {ratio} [facility] Comment on above: Performed By: #### C MP, LIPID #### [facility] [address] [address] [address] Karely Perkins HDL NORMAL > or = 60 mg/dl - LO W CARDIOVASCULAR RISK <40 mg/dl - HIGH CARDIOVASCULAR RISK [facility] Comment on above: Performed By: #### C MP, LIPID #### [facility] [address] [address] [address] Karely Perkins LDL CALC NORMAL SEE BELOW [facility] Comment on above: Result Comment: <100 mg/dl OPTIMAL 100 - 129 mg/dl NEAR OR ABOVE OPTIMAL 130 - 159 mg/dl BORDERLINE HIGH 160 - 189 mg/dl HIGH >190 mg/dl VERY HIGH Performed By: #### C MP, LIPID #### [facility] [address] [address] [address] Karely Perkins Triglyceride [Mass/Vol] 72 mg/dL Normal <=150 [facility] Comment on above: Performed By: #### C MP, LIPID #### [facility] [address] [place] [address] Dr. Karely Perkins VLDL CALC 14.4 mg/dL [facility] Comment on above: Performed By: #### C MP, LIPID #### [facility] [address] [place] [address] Dr. Karely Perkins PROF 14(COMP METB)on 023 Albumin [Mass/Vol] 3.7 g/dL Normal 3.4-5.0 [facility] Comment on above: Performed By: #### C MP, LIPID #### [facility] [address] [place] [address] Dr. Karely Perkins Albumin/Globulin [Mass ratio] 1.0 {ratio} [facility] Comment on above: Performed By: #### C MP, LIPID #### [facility] [address] [place] [address] Dr. Karely Perkins ALP [Catalytic activity/Vol] 117 U/L Critically high 46-116 [facility] Comment on above: Performed By: #### C MP, LIPID #### [facility] [address] [place] [address] Dr. Karely Perkins ALT [Catalytic activity/Vol] 24 U/L Normal 16-63 [facility] Comment on above: Performed By: #### C MP, LIPID #### [facility] [address] [place] [address] Dr. Karely Perkins Anion gap [Moles/Vol] 9.4 mmol/L [facility] Comment on above: Performed By: #### C MP, LIPID #### [facility] [address] [place] [address] Dr. Karely Perkins AST [Catalytic activity/Vol] 34 U/L Normal 15-37 [facility] Comment on above: Performed By: #### C MP, LIPID #### [facility] [address] [place] [address] Dr. Karely Perkins Bilirubin [Mass/Vol] 0.7 mg/dL Normal 0.2-1.0 [facility] Comment on above: Performed By: #### C MP, LIPID #### [facility] [address] [place] [address] Dr. Karely Perkins Calcium [Mass/Vol] 9.0 mg/dL Normal 8.5-10.1 [facility] Comment on above: Performed By: #### C MP, LIPID #### [facility] [address] [place] [address] Dr. Karely Perkins Chloride [Moles/Vol] 108 mmol/L Critically high 98-107 [facility] Comment on above: Performed By: #### C MP, LIPID #### [facility] [address] [place] [address] Dr. Karely Perkins CO2 [Moles/Vol] 30.7 mmol/L Normal 21.0-32.0 [facility] Comment on above: Performed By: #### C MP, LIPID #### [facility] [address] [place] [address] Dr. Karely Perkins Creatinine [Mass/Vol] 0.90 mg/dL Normal 0.70-1.30 [facility] Comment on above: Performed By: #### C MP, LIPID #### [facility] [address] [place] [address] Dr. Karely Perkins EGFR-AF HUNGARIAN >60 Normal >=60 [facility] Comment on above: Performed By: #### C MP, LIPID #### [facility] [address] [place] [address] Dr. Karely Perkins EGFR-NON AF HUNGARIAN >60 Normal >=60 [facility] Comment on above: Performed By: #### C MP, LIPID #### [facility] [address] [place] [address] Dr. Karely Perkins Globulin (S) [Mass/Vol] 3.6 g/dL [facility] Comment on above: Performed By: #### C MP, LIPID #### [facility] [address] [place] [address] Dr. Karely Perkins Glucose [Mass/Vol] 109 mg/dL Critically high 74-106 [facility] Comment on above: Performed By: #### C MP, LIPID #### [facility] [address] [place] [address] Dr. Karely Perkins Potassium [Moles/Vol] 4.1 mmol/L Normal 3.5-5.1 [facility] Comment on above: Performed By: #### C MP, LIPID #### [facility] [address] [place] [address] Dr. Karely Perkins Protein [Mass/Vol] 7.3 g/dL Normal 6.4-8.2 [facility] Comment on above: Performed By: #### C MP, LIPID #### [facility] [address] [place] [address] Dr. Karely Perkins Sodium [Moles/Vol] 144 mmol/L Normal 136-145 [facility] Comment on above: Performed By: #### C MP, LIPID #### [facility] [address] [place] [address] Dr. Karely Perkins Urea nitrogen [Mass/Vol] 20.0 mg/dL Critically high 7.0-18.0 [facility] Comment on above: Performed By: #### C MP, LIPID #### [facility] [address] [place] [address] Dr. Karely Perkins Urea nitrogen/Creatinine [Mass ratio] 22.2 mg/mg [facility] Comment on above: Performed By: #### C MP, LIPID #### [facility] [address] [place] [address] Dr. Karely Perkins US SCROTUMon 11-18-2021 US [...] by: DEEP HOYOS Date: 2021-11-18 12:10 [facility] Vital Signs Date Time Vital Sign Value Performing Clinician Faci lity 07-11-2023 13:24-0400 Blood Pressure Location [employer] [facility] 07-11-2023 13:24-0400 Diastolic blood pressure 80 mm[Hg] [employer] [facility] 07-11-2023 13:24-0400 Heart rate 72 /min [employer] [facility] 07-11-2023 13:24-0400 Respiratory rate 16 /min [employer] [facility] 07-11-2023 13:24-0400 Systolic blood pressure 126 mm[Hg] [employer] [facility] 06-07-2023 11:36-0400 Body height 170.2 cm El Mccabe APRN-PRESSURE DISPATCHER Work Phone: [facility] 06-07-2023 11:36-0400 Body mass index (BMI) [Ratio] 25.31 kg/m2 El Mccabe APRN-PRESSURE DISPATCHER Work Phone: [facility] 06-07-2023 11:36-0400 Body weight 73.3 kg El Mccabe APRN-PRESSURE DISPATCHER Work Phone: [facility] 06-07-2023 11:36-0400 Diastolic blood pressure 95 mm[Hg] El Mccabe APRN-PRESSURE DISPATCHER Work Phone: [facility] 06-07-2023 11:36-0400 Heart rate 81 /min El Mccabe CONTENT PRODUCTION SPECIALIST-PRESSURE DISPATCHER Work Phone: [facility] 06-07-2023 11:36-0400 Systolic blood pressure 178 mm[Hg] El Mccabe CONTENT PRODUCTION SPECIALIST-PRESSURE DISPATCHER Work Phone: [facility] Encounters Encounter Date Encounter Type Care Provider Facility Start: 11-21-2023 End: 11-21-2023 ambulatory Jaciel R NILL Facility: [facility] Start: 10-18-2023 ambulatory Renate Brock Facility:[facility] Start: 08-29-2023 End: 08-29-2023 ambulatory Jaciel R NILL Facility: [facility] Start: 08-29-2023 End: 08-29-2023 Patient encounter procedure [facility] Start: 08-09-2023 End: 08-09-2023 ambulatory Jaciel R Gabinol [facility] Work Phone: Start: 08-09-2023 End: 08-09-2023 Departed Referred DO Jaciel Echavarria Work Phone: [facility] Start: 08-09-2023 End: 08-09-2023 ambulatory Jaciel R NILL Facility:[id number] Start: 07-20-2023 End: 07-20-2023 ambulatory [facility] Start: 07-20-2023 End: 07-20-2023 ambulatory JACIEL ECHAVARRIA [facility] Start: 07-11-2023 End: 07-11-2023 ambulatory [facility] Facility:[facility] Start: 07-11-2023 End: 07-11-2023 Patient encounter procedure Jaciel R NILL [facility] Start: 06-19-2023 ambulatory Jaciel BRANDT Facility:[facility] Start: 06-16-2023 ambulatory Jaciel BRANDT Facility:[facility] Start: 06-07-2023 End: 06-07-2023 ambulatory EL MCCABE [facility] Start: 06-07-2023 End: 06-07-2023 Patient encounter procedure El Mccabe CONTENT PRODUCTION SPECIALIST-PRESSURE DISPATCHER Work Phone: [facility] Comment on above: Status post laparosc opic cholecystectomy (Primary Dx); Status post umbilical hernia repair, follow-up exam Start: 05-31-2023 Orders Only Not In System Ref Prov [facility] Start: 05-25-2023 End: 05-25-2023 Departed Referred DO Jaciel Echavarria Work Phone: [facility] Start: 05-25-2023 End: 05-25-2023 ambulatory Jaciel Echavarria [facility] Work Phone: Start: 06-06-2022 End: 06-07-2022 ambulatory REVA SHANNON Facility:[facility] Start: 05-18-2022 End: 05-19-2022 ambulatory REVA SHANNON Facility:[facility] Start: 11-18-2021 End: 11-19-2021 ambulatory REVA SHANNON Facility:[facility] Start: 05-07-2020 End: 05-07-2020 Patient encounter procedure Wendy Remigio Work Phone: [facility] Work Phone: Procedures Date Procedure Procedure Detail Performing Clinician Start: 08-09-2023 Colonoscopy Jaciel BRANDT Start: 05-27-2023 MULTIPLE LABS Not In System Ref Prov Start: 05-25-2023 Level i surg pathology gross examination only Not In System Ref Prov Start: 05-18-2022 PSA screening REVA SHANNON Comment on above: Performed By: #### PSASC #### [facility] [address] [place] [address] Dr. Karely Perkins Start: 05-07-2020 Imm. administration COVID19 Moderna dose 1 Wendy Flood Work Phone: Start: 05-07-2020 SARS-CoV-2 vaccine, 0.5ml Moderna Wendy Flood Work Phone: Start: 09-23-2015 Colonoscopy Jaciel BRANDT Start: 09-23-2015 Esophagogastroduodenoscopy Jaciel BRANDT Excision of basal cell carcinoma Jaciel BRANDT Comment on above: back Excision of squamous cell carcinoma Jaciel BRANDT Comment on above: left shoulder History of cholecystectomy Statu s post laparoscopic cholecystectomy El Mccabe CONTENT PRODUCTION SPECIALIST-PRESSURE DISPATCHER Work Phone: Repair of umbilical hernia Jesusita BRANDT Tonsillectomy Jaciel BRANDT Plan of Treatment Date Care Activity Detail Author Start: 06-06-2024 Adult BMI Screening Adult BMI Screening [facility] Start: 06-06-2024 Tobacco Screening Tobacco Screening [facility] Start: 11-05-2023 Influenza vaccination Influenza Vaccine [facility] Start: 06-04-2020 2nd Dose- COVID Vaccine [facility] Work Phone: Start: 08-23-2011 Fall Risk Screening Fall Risk Screening [facility] [email or web address] Start: 1996 Administration of varicella zoster vaccine Zoster (Shingles) Vaccine (1 of 2) [facility] Start: 1965 DTaP,Tdap and Td Vaccines (1 - Tdap) DTaP,Tdap and Td Vaccines (1 - Tdap) [facility] [employer] [facility] Start: 1964 Adult BMI Follow Up Plan Adult BMI Follow Up Plan [facility] Start: 1958 Depression Screening Depression Screening [facility] Start: 1945 Medicare Annual Wellness Visit Medicare Annual Wellness Visit [facility] Immunizations Immunization Date Immunization Notes Care Provider Fa cility 11-23-2022 influenza virus vaccine, unspecified formulation El Mccabe CONTENT PRODUCTION SPECIALIST-PRESSURE DISPATCHER Work Phone: [facility] 12-14-2021 SARS-CoV-2 (COVID-19 ) [id number] Jaciel BRANDT [facility] 06-29-2021 SARS-CoV-2 (COVID-19 ) mRNA BNT-162b2 vax Jaciel BRANDT [facility] 01-06-2021 SARS-CoV-2 (COVID-19 ) mRNA-1273 vaccine Jaciel BRANDT [facility] 06-04-2020 SARS-CoV-2 (COVID-19 ) mRNA-1273 vaccine Jaciel BRANDT [facility] 05-07-2020 2nd Dose MODERNA COVID-19 Vaccine; Translations: [Moderna COVID-19 Vaccine] Luiz Jimenez [facility] Comment on above: Note: Patient tolera keely well. No signs or symptoms of adverse reactions. Patient waited a minimum of 15 minutes. Payers Date Payer Category Payer Self-pay 2022 Medicare [employer] MEDICARE A ETNA MEDICARE PLAN (PPO) [id number] 2022-Present [phone] [address] [place] [address] [id number] 2011 Unknown 1 - Medicare [facility] CGS PPS [id number] 1959 Medicare [id number] 1959 Medicare [id number] 1959 Unknown [id number] [id number] 9.5.10.6.3 1946 Unknown [id number] 2.16.840.1.551417.3.579.2.593 1946 Unknown [id number] 2.16.840.1.840969.3.579.2.593 1946 Unknown [id number] 2.16.840.1.424060.3.579.2.593 1946 Unknown [id number] 2.16.840.1.016677.3.579.2.1286 1946 Unknown [id number] 2.16.840.1.472841.3.579.2.1286 1946 Unknown [id number] 2.16.840.1.103447.3.579.2.128 1946 Unknown [id number] 2.16.840.1.907479.3.579.2.1286 1946 Unknown [id number] 2.16.840.1.709606.3.579.2.1286 1946 Unknown [id number] 2.16.840.1.305558.3.579.2.1286 1946 Unknown [id number] 2.16.840.1.369997.3.579.2.1286 1946 Unknown [id number] 2.16.840.1.883613.3.579.2.727 1946 Unknown [id number] 2.16.840.1.581444.3.579.2.727 1946 Unknown [id number] 2.16.840.1.349194.3.579.2.727 1946 Unknown [id number] 2.16.840.1.892001.3.579.2.727 1946 Unknown [id number] 2.16.840.1.041026.3.579.2.727 Medicare Medicare Outpatient [id number] Unknown [facility] Health Claims [id number] Unknown [id number] 2.16.840.1.142138.3.579.2.531 Unknown [id number] 2.16.840.1.499458.3.579.2.531 Social History Date Type Detail Facility Tobacco smoking status Unknown if ever sm oked [facility] Start: 1945 Sex Assigned At Male F [facility] Start: 08-15-2018 End: 06-07-2023 History of Social function [facility] Start: 08-15-2018 End: 06-07-2023 Childcare [facility] Childcare Unknown [facility] Start: 1945 Sex Assigned At Not on file P [facility] Start: 06-07-2023 End: 07-11-2023 Tobacco smoking status NHIS Ex-smoker [facility] End: 03-06-1983 History of tobacco use Current smoker [facility] End: 03-06-1983 History of tobacco use Cigarette Smoker [facility] Start: 06-07-2023 Tobacco use and exposure Smokeless tobacco non-user [facility] Start: 06-07-2023 Alcohol intake Current drinke r of alcohol (finding) [facility] Functional Status Date Assessment Result Facility 07-11-2023 Functional Status N/A [facility] Clinical Notes 06-07-2023 to 11-21-2023 El Mccabe, SHAYNE-PRESSURE DISPATCHER - 06/07/2023 11:30 AM EDT Note Date & Type Note Facility 11-21-2023 Note General Surgery Offi ce/Clinic Note Chief Complaint consultation for hernia HPI Staff 78 year old male presents on consultation from Lenore Shannon for recurrent umbilical hernia. Patient underwent primary repair with Dr. Echavarria 05/2023. Patient reports immediately after surgery, he noted umbilicus looked different:. Reports over time, umbilical mass has significantly increased in size. Denies soreness or tenderness. Reports bulge reduces when lying down. Denies bulge being red. Denies nausea, vomiting or bowel changes. No imaging completed. History of Present Illness 78 yo male with h/o htn, hyperlipidemia, referred for enlarging umbilical hernia; patient had LS cholecystectomy with primary repair of 1.5 cm umbilical defect; patient reports enlargement of area since surgery; patient also reports that he developed a RUQ biloma after surgery that required percutaneous drainage, which was done in [place]; no pain or skin changes, no N/V or bowel changes; no asa or NSAID use. no tobacco use; no other abd operations. Review of Systems PHQ Score Initial Depression [...] & Measurements HR: 72(Peripheral) RR: 16 BP: 136/84 HT: 67 in HT: 170 cm WT: 70 kg WT: 154 lb BMI: 24.22 HEENT: normal conjunctiva, sclera clear, no scleral icterus, EOM intact, PERRLA, oral mucosa moist without lesions. Neck: trachea midline, no mass, symmetric, no thyromegaly or nodules, no adenopathy Respiratory: lungs CTA, respirations non labored. Cardiovascular: regular rate and rhythm, no murmur, no pedal edema or varicosities. Gastrointestinal: soft, non distended, no tenderness, no masses, well healed incisions; 2.5 cm umbilical incisonal fascial defect, with reducible hernia sac, nontender, no skin changes, diastasis recti yes, no hepatosplenomegaly; normal bs Lymphatic: no cervical adenopathy, no supraclaviuclar adenopathy. Musculoskeletal: normal gait, digits and nails without infection, nodes, cyanosis, clubbing. Skin: no rashes, no lesions, no ulcers, no subcutaneous nodules, induration. Psychiatric/Neuro: oriented to time, place, person, judgement normal, affect appropriate for age, insight intact, no focal deficits. Tests: review of old records completed , Discussed surgical options, risks, and possible complications with patient. Assessment/Plan 1. Recurrent umbilical hernia (K42.9: Umbilical hernia without obstruction or gangrene) plan robotic-assisted ventral incisional herniorrhaphy with mesh insertion, informed consent obtained. Ancef 2 gms IV prior to OR TAP block per anesthesia SCDs Follow-up No qualifying data available Problem List/Past Medical History Ongoing Anxiety Benign neoplasm of descending colon Diverticulosis Essential hypertension History of colon polyps Hypercholesterolemia Hyperlipidemia Lesion of liver Leukocytosis Overweight Positive colorectal cancer screening using Cologuard test Recurrent umbilical hernia Sigmoid diverticulosis Historical BMI 25.0-25.9,adult Procedure/Surgical History Colonoscopy (08/09/2023), Colonoscopy (09/23/2015), EGD - esophagogastroduodenoscopy (09/23/2015), Cholecystectomy, Excision of basal cell carcinoma, Excision of squamous cell carcinoma, Repair of umbilical hernia, Tonsillectomy. Medications Prilosec OTC, 20 mg, Oral, Daily simvastatin 20 mg Tab, 20 mg= 1 tab(s), Oral, qPM Allergies No Known Allergies No Known Medication Allergies Social History Alcohol - Denies Alcohol Use, 07/11/2023 Substance Abuse - Denies Substance Abuse, 07/11/2023 Tobacco Former smoker, quit more than 30 days ago Tobacco Use:. Never Smokeless Tobacco Use:. Cigarettes, 0.5 per day. Started age 15.0 Years. Stopped age 36 Years., 11/21/2023 Family History Diabetes mellitus type 2: Mother and Bro (more content not included)... [facility] Comment on above: Result Comment: Elec tronically Signed By: ELAINE FRANCISCO, Jaciel Hall\Date and Time Signed: 11/21/23 17:00 EDT 07-11-2023 Note Chief Complaint consultation for positive Cologuard HPI Staff 77 year old male presents on consultation from Lenore Shannon for positive Cologuard. Last colonoscopy completed 2016 with sigmoid diverticulosis. Sister with history of [...] virus vaccine, inactivated 11/23/2022 Recorded SARS-CoV-2 (COVID-19) [id number].[id number] 12/14/2021 Recorded SARS-CoV-2 (COVID-19) mRNA BNT-162b2 vax 06/29/2021 Recorded SARS-CoV-2 (COVID-19) mRNA-1273 vaccine 01/06/2021 Recorded SARS-CoV-2 (COVID-19) mRNA-1273 vaccine 06/04/2020 Recorded SARS-CoV-2 (COVID-19) mRNA-1273 vaccine 05/07/2020 Recorded [facility] Comment on above: Result Comment: Elec tronically Signed By: ELAINE FRANCISCO, Jaciel Hall\Date and Time Signed: 07/11/23 13:45 EDT 06-07-2023 History of Present illness Narrative Images [...] Status post laparoscopic cholecystectomy [Z90.49] JEVON SINGH [facility] General Surgery [place] This note was created with the assistance of a speech recognition program. While intending to generate a timely document that accurately reflects the content of the visit, no guarantee can be provided that every grammatical or spelling mistake has been or will be identified or corrected. Thank you for your understanding. JEVON Singh 06/07/23 1150 documented in this encounter [facility] Evaluation + Plan note No data available for this section [facility] Evaluation + Plan note Future Appointments Appointment Date:10/18/2023 08:15:00 AM Scheduled Provider:Renate Brock MD Location:[facility] Appointment Type:URO New Patient [facility] Evaluation note No assessment information [facility] Work Phone: Evaluation note Diagnosis Status post laparoscopic cholecystectomy- Primary Other postprocedural status Status post umbilical hernia repair, follow-up exam Follow-up examination, following other surgery documented [facility] this [facility] No data available for this section [facility] InstructionsNot on filedocumented in this encounter [facility] filedocumented in this encounter [facility] No data available for this section [facility] Reason for Referral No Reason for Referral Recorded No data available for this section No data available for this section Assessments Findings Encounter Date Encounter for Immunization 1st COVID Vaccine susan Flood CNP 05/07/2020 Instructions Instructions not supported for this document type No Instructions Recorded History of Present Illness History of Present Illness not supported for this document type No History of Present Illness Recorded Family History Includes: Family History in patient's chart No Family History RecordedNo Family History Records Found No data available [...] type No Physical Exam Recorded Advance Directives No Advanced Directives Records Found Advance Directive Response Recorded Date/ Time Advance Directives No August 09 12:20pm Summary Purpose Additional Source Comments Medical History [...] content) DATE CREATED AUTHOR 06/11/2022 [facility] DATE CREATED AUTHOR AUTHOR'S ORGANIZ ATION 07/22/2023 [facility] DATE CREATED AUTHOR AUTHOR'S ORGANIZ ATION 08/06/2023 [facility] DATE CREATED AUTHOR AUTHOR'S ORGANIZ ATION 08/11/2023 [facility] DATE CREATED AUTHOR AUTHOR'S ORGANIZ ATION 11/23/2023 [facility] Care Teams (unrecognized sec tion and content) Team Status: Inactive Member Role Status Dates Jaciel Echavarria DO Attending Provider Active Start: May 25, 2023 End: May 25, 2023 Jig Fitter Relationship Specialty Start Date End Date Reva Shannon, CONTENT PRODUCTION SPECIALIST-PRESSURE DISPATCHER [address] [facility], [place] [id number] PCP - General Family Medicine 06/01/23 Team Status: Inactive Member Role Status Dates Jaciel Brandt MD FACS Attending Provider Active Start: August 09, 2023 End: August 09, 2023 Goals (unrecognized section and content) Goals may be documented in a n alternate section Reason for Visit (unrecogniz ed section and content) Reason Comments Post-op Post op davinci chol ecystectomy and umbilical hernia repair performed 05/24/23 at [facility] FOR RECORDS PERTAINING TO PATIENTS [...] BE BASED ON THE PRIMARY CLINICAL RECORDS. [facility]. provides no warranty or guarantee of the accuracy or completeness of information in this document.
--- NOTE | 2024-01-03 10:14 | ECG_ITS ---
[facility] Test Date: 2024-01-03 Pat Name: ABIGAIL BIRMINGHAM Department: Room: - Gender: Male Slip Maker: : 1945 Requested By: JACIEL HENRY Order Number: [id number] Reading MD: ARIAN WHITE Measurements Intervals [place] Rate: 54 P: 49 TX: 176 QRS: 0 QRSD: 97 T: 24 QT: 420 QTc: 401 Interpretive Statements SINUS BRADYCARDIA Compared to ECG 05/23/2023 19:04:22 Sinus rhythm no longer present Electronically Signed On 01-03-2024 23:25:17 EDT by ARIAN WHITE
--- NOTE | 2024-01-03 11:00 | PM.PRESUREVA ---
History of Present Illness History of Present Illness Chief complaint: Recurring Umbilical Hernia Narrative: Patient presents for preadmission testing. The patient states he had an umbilical hernia repair with a cholecystectomy done with Dr. Guthrie in May 2023 followed by a biloma after surgery with a percutaneous drain. The patient states his umbilical hernia never resolved. The patient states since his last visit with Dr. Brandt, he has noticed a lump in his right inguinal area and has been experiencing right flank pain which he states feels similar to when he had the biloma. The patient denies groin pain, abdominal pain, nausea, vomiting, hematuria, dysuria, fever, or any other complaints. Review of Systems ROS Narrative REVIEW OF SYSTEMS: Negative except as stated in HPI, ten or more systems reviewed. Constitutional: No fever, chills, weakness ENT: No sore throat or epistaxis Cardiovascular: No edema, chest pain, palpitations, or activity intolerance Respiratory: No shortness of breath, cough, or wheezing Musculoskeletal: No joint pain or swelling Genitourinary: No dysuria or hematuria Neurological: No numbness, tingling, weakness, or headache Psychiatric: No mood changes [facility] Medical History (Updated 01/03/24 @ 11:06 by Kanwal Zayas NP) Lesion of liver ?K76.9 - Liver disease, unspecified (ICD-10) Polyp of colon ?K63.5 - Polyp of colon (ICD-10) Diverticulosis ?K57.90 - Diverticulosis of intestine, part unspecified, without perforation or abscess without bleeding (ICD-10) Benign neoplasm of descending colon ?D12.4 - Benign neoplasm of descending colon (ICD-10) Skin cancer ?C44.90 - Unspecified malignant neoplasm of skin, unspecified (ICD-10) Back pain ?M54.9 - Dorsalgia, unspecified (ICD-10) Hip pain ?M25.559 - Pain in unspecified hip (ICD-10) Arthritis ?M19.90 - Unspecified osteoarthritis, unspecified site (ICD-10) GERD (gastroesophageal reflux disease) ?K21.9 - Gastro-esophageal reflux disease without esophagitis (ICD-10) Heart murmur ?R01.1 - Cardiac murmur, unspecified (ICD-10) Umbilical hernia ?K42.9 - Umbilical hernia without obstruction or gangrene (ICD-10) Squamous cell carcinoma Basal cell carcinoma ?C44.91 - Basal cell carcinoma of skin, unspecified (ICD-10) Sigmoid diverticulosis ?K57.30 - Diverticulosis of large intestine without perforation or abscess without bleeding (ICD-10) Hyperlipidemia ?E78.5 - Hyperlipidemia, unspecified (ICD-10) Anxiety ?F41.9 - Anxiety disorder, unspecified (ICD-10) Positive colorectal cancer screening using Cologuard test ?R19.5 - Other fecal abnormalities (ICD-10) High cholesterol ?E78.00 - Pure hypercholesterolemia, unspecified (ICD-10) Surgical History (Updated 01/03/24 @ 10:34 by Kanwal Zayas NP) H/O local excision of skin lesion ?Z98.890 - Other specified postprocedural states (ICD-10) H/O colonoscopy (08/09/23) ?Z98.890 - Other specified postprocedural states (ICD-10) H/O umbilical hernia repair ?Z98.890 - Other specified postprocedural states (ICD-10) ?Z87.19 - Personal history of other diseases of the digestive system (ICD-10) H/O squamous cell carcinoma excision ?Z98.890 - Other specified postprocedural states (ICD-10) ?Z85.9 - Personal history of malignant neoplasm, unspecified (ICD-10) H/O basal cell carcinoma excision ?Z98.890 - Other specified postprocedural states (ICD-10) ?Z85.828 - Personal history of other malignant neoplasm of skin (ICD-10) History of cholecystectomy ?Z90.49 - Acquired absence of other specified parts of digestive tract (ICD-10) History of esophagogastroduodenoscopy (EGD) ?Z98.890 - Other specified postprocedural states (ICD-10) H/O colonoscopy ?Z98.890 - Other specified postprocedural states (ICD-10) Hx of tonsillectomy ?Z90.89 - Acquired absence of other organs (ICD-10) Family History (Updated 08/01/23 @ 12:20 by Kanwal Zayas NP) Other Colon cancer Family history of diabetes mellitus Family history of hypertension Heart disease Social History (Updated 08/09/23 @ 10:08 by Simona Gallardo) Within the past year, how often did you have a drink containing alcohol: monthly or less Smoking status: Former smoker Non-prescribed substance use: denies use Previous occupational history: retired Highest level of school completed/degree received: GED or equivalent Gender Identity: male Meds Home Medications and Allergies Home Medications ?Medication ?Instructions ?Recorded ?Confirmed ?Type simvastatin 20 mg tablet 20 mg PO DAILY 05/23/23 01/03/24 History omeprazole 20 mg capsule,delayed 20 mg PO DAILY 01/03/24 01/03/24 History release Allergies Allergy/AdvReac Type Severity Reaction Status Date / Time No Known Drug Allergies Allergy Verified 01/03/24 10:26 Exam Narrative Exam Narrative: Constitutional: Awake, alert, comfortable, well-appearing, nontoxic, interactive, vital signs as charted Head: Normocephalic, atraumatic Neck: Supple, normal appearance, normal range of motion, no meningeal signs, no lymphadenopathy Respiratory: No respiratory distress, breath sounds clear Cardiovascular: Regular rate and rhythm, strong and regular heart tones Abdomen: Nontender, normal bowel sounds, soft, no CVA tenderness, reducible nontender umbilical hernia Musculoskeletal: Normal gait, no swelling or edema Skin: No rashes or induration, no lesions, only visible skin inspected Neuro: No neurological deficits, normal sensation Psychiatric: Oriented ?3, normal affect Assessment and Plan Assessment and Plan (1) Lesion of liver: (2) Umbilical hernia: Plan Robot-assisted umbilical hernia repair with mesh scheduled with Dr. Brandt January 17, 2024. The patient has new complaints today of right groin pain and right flank pain which he states feels similar to the biloma he had after his cholecystectomy. Angelina at Dr. Brandt's office will schedule the patient for an appointment with Dr. Brandt this week.
== END 2024-01-03 09:48 | disposition home or self-care (01) ==
LOC: PST 09:48
PROVIDERS: PCP Nurse Practitioner Family; Visit Provider Surgery
DX: Z01.810 Encounter for preprocedural cardiovascular examination (principal); Z01.818 Encounter for other preprocedural examination; K42.9 Umbilical hernia without obstruction or gangrene
CPT/HCPCS: 93005; G0463

== ENCOUNTER 2024-01-15 07:10 | Outpatient (OUT) | payer MEDICARE, SELFPAY ==
--- NOTE | 2024-01-15 | CT_ITS ---
The [address] [address] Patient Name: ABIGAIL BIRMINGHAM MRN: [id number] date: 1945 Sex: M Assigned Patient Location: LAB Current Patient Location: Accession/Order Number: [id number] Exam Date: 01/15/2024 09:10 Report Date: 01/16/2024 07:31 At the request of: JACIEL HENRY Procedure: CT abdomen pelvis w con EXAM: CT abdomen pelvis w con HISTORY: Recurrent umbilical hernia COMPARISON: CT abdomen and pelvis of 07/15/2023. TECHNIQUE: Following intravenous administration of 100 cc of Omnipaque 300, axial soft tissue windows of the abdomen and pelvis were performed with coronal and sagittal reformats. CT dose reduction technique was used including Automated Exposure Control. Findings: Partially visualized large hiatal hernia. ABDOMEN: The visualized portions of the liver are unremarkable. The spleen, pancreas, and adrenal glands are unremarkable. No renal stones or collecting system dilatation. Bilateral renal cysts. The largest is within the right kidney measuring approximately 2.6 cm. The visualized portions of the bilateral ureters are nondilated. There are colonic diverticula. Otherwise, the bowel is unremarkable without evidence of wall thickening or obstruction. The appendix is nondilated. The aorta is normal caliber. Mild atherosclerotic disease. No enlarged abdominal lymph nodes or free abdominal fluid. Small to moderate sized umbilicus hernia containing fat and nonobstructed small bowel. Pelvis: The prostate is enlarged and exerts mild mass effect upon the posterior bladder wall. Otherwise, the bladder is unremarkable. No calculi. No enlarged pelvic lymph nodes or free pelvic fluid. No aggressive sclerotic or lytic osseous lesions. Mild multilevel degenerative thoracic spondylosis. CT/CT abdomen pelvis w con IMPRESSION: 1. Wveni-jy-ogwozyhb umbilicus hernia. 2. Partially visualized large hiatal hernia. 3. Other nonemergent findings, as described above. Electronically authenticated by: FARHANA BERNSTEIN Date: 01/16/2024 07:31
--- OUTSIDE RECORDS SUMMARY | 2024-01-15 07:12 | XMS_ITS | CCD ---
Author Organization [facility] Care Team Providers Care Virtual Reality Specialist Name Role Phone Luiz Jimenez Unavailable REVA [...] Consulting Unavailable DO Jaciel Echavarria Attending Provider Unavailable Primary Care Provider UnavailDafne ESCOTO Reva S Primary Care Provider SHIVA REVA S Primary Care Physician EL MCCABE [...] Unavailable MD Jaciel Brandt Attending Provider Jaciel Brandt Attending Unavailable Jaciel Brandt Admitting Unavailable Jaciel Echavarria Attending Unavailable Jaciel Echavarria Admitting Unavailable Jaciel BRANDT Attending Unavailable SHIVA, REVA S Referring Unavailable Jaciel BRANDT Attending Unavailable REVA SHANNON Referring Unavailable Lauren Brockhy Andrew Attending Unavailable Jaciel BRANDT Attending Unavailable Jaciel BRANDT Attending Unavailable Jaciel BRANDT Attending Unavailable Allergies Allergy Classification Reported Allergen(s) Allergy Type Date of Onset Reaction(s) Facility (1 source) No Known Medication Allergies; Translations: [No Known Medication Allergies] Propensity to adverse reactions (disorder) [facility] Repository Medications Current Medications Medication Drug Class(es) Dates Sig (Normalized) Sig (Original) naproxen sodium 220 mg oral tablet (1 source) Nonsteroidal Anti-inflammatory Drug take 1 tablet by mouth every four hours as needed for pain naproxen sodium (ALEVE) 220 mg tablet Take 1 tablet (220 mg total) by mouth every 4 (four) hours as needed for pain. 0 Active omeprazole 20 mg oral tablet (1 source) Proton Pump Inhibitor Start: 11-21-2023 take 20 mg by mouth once daily Prilosec OTC 20 mg, Oral, Daily, Refills(s) 0 Start Date: 11/21/23 Status: Ordered simvastatin 20 mg oral tablet (4 sources) HMG-CoA Reductase Inhibitor Start: 06-28-2023 take [...] Classification Problem Date Documented Da te Episodic/Chronic Abdominal hernia (2 sources) Umbilical hernia; Translations: [Umbilical hernia without obstruction or gangrene] Onset: 01-10-2024 Episodic Abdominal pain (2 sources) Right upper quadrant pain; Translations: [Right upper quadrant pain] Onset: 01-10-2024 Episodic Anxiety disorders (3 sources) Anxiety 06-28-2023 Chronic Complications of surgical procedures or medical care (2 sources) Complication of procedure; Translations: [Other complications of procedures, not elsewhere classified, initial encounter] Onset: 01-10-2024 Episodic Diabetes mellitus without complication (4 sources) Hyperglycemia, unspecified; Translations: [HYPERGLYCEMIA UNSPECIFIED] Onset: 05-18-2022 Episodic Diseases of white blood cells (2 sources) Leukocytosis 08-23-2023 Chronic Disorders of lipid metabolism (6 sources) Hyperlipidemia, unspecified; Translations: [Hyperlipidemia] Onset: 06-10-2022 06-28-2023 Chronic Diverticulosis and diverticulitis (4 sources) Diverticulosis of sigmoid colon; Translations: [Diverticular disease] 06-28-2023 Chronic Essential hypertension (2 sources) Essential hypertension 08-23-2023 Chronic Immunizations and screening [...] 06-07-2023 Episodic Other and unspecified benign neoplasm (3 sources) Benign neoplasm of descending colon; Translations: [Benign neoplasm of descending colon] Onset: 08-29-2023 Episodic Other and unspecified benign neoplasm (1 source) History of polyp of colon 11-15-2023 Episodic Other gastrointestinal disorders (1 source) Abnormal feces; Translations: [Other fecal abnormalities] Onset: 07-11-2023 Episodic Other gastrointestinal disorders (1 source) Disorder of peritoneum; Translations: [Other specified disorders of peritoneum] Onset: 01-10-2024 Episodic Other liver diseases (2 sources) Lesion of liver 08-23-2023 Chronic Other nutritional; endocrine; and metabolic disorders (3 sources) Overweight 06-28-2023 Episodic Other nutritional; endocrine; and metabolic disorders (3 sources) Overweight in adulthood with body mass index of 25 or more but less than 30 07-11-2023 Episodic Other screening for suspected conditions (not mental disorders or infectious disease) (5 sources) Encounter for screening for malignant neoplasm [...] Interpretation Reference Range Facility Ambulatory Visit Summaryon 1 03-11-2023 Ambulatory Visit Summary Ambulatory Visit Summary ABIGAIL WASHINGTON :1945 Visit Date:01/10/2024 Ambulatory Visit Instructions Your Diagnosis Right upper quadrant pain Biloma following surgery Recurrent umbilical hernia Other specified disorders of peritoneum Tests Performed CT Abdomen/Pelvis w/ Contrast -- Results Pending -- Please visit your patient portal for your results or contact your primary care physician. Your Care Team Attending Physician - ELAINE FRANCISCO, Jaciel Obando Primary Care Physician - REVA SHANNON CNP This Is Your Medications List omeprazole (Prilosec OTC) simvastatin (simvastatin 20 mg Tab) Procedures Performed Colonoscopy (08/09/2023), Colonoscopy (09/23/2015), EGD - esophagogastroduodenoscopy (09/23/2015), Cholecystectomy, Excision of basal cell carcinoma, Excision of squamous cell carcinoma, Repair of umbilical hernia, Tonsillectomy. Discharge Vitals Heart Rate (Peripheral) 72 Respiratory Rate 16 Blood Pressure 146/94 Height 170 cm Height 67 in Weight 68.2 kg Weight 150.04 lb BMI 23.6 Medications What How Much When Instructions Unchanged omeprazole (Prilosec OTC) 20 Milligram By Mouth Every day Unchanged simvastatin (simvastatin 20 mg Tab) 1 Tablets By Mouth Once a day (in the evening) Allergies No Known Allergies No Known Medication Allergies Problems Ongoing - Any problem that you are currently receiving treatment for. Anxiety Benign neoplasm of descending colon Biloma following surgery Diverticulosis Essential hypertension History of colon polyps Hypercholesterolemia Hyperlipidemia Lesion of liver Leukocytosis Positive colorectal cancer screening using Cologuard test Recurrent umbilical hernia Right upper quadrant pain Sigmoid diverticulosis Historical - Any problem that you are no longer receiving treatment for. BMI 25.0-25.9,adult Overweight Patient Survey You may receive a survey via text or e-mail asking about your office visit. Please share your experience with us by completing your survey. We appreciate your feedback and thank you for choosing us for your care. [facility] Ambulatory Visit Summaryon 0 11-21-2023 Ambulatory Visit Summary Ambulatory Visit Summary ABIGAIL WASHINGTON :1945 Visit Date:11/21/2023 Ambulatory Visit Instructions Your Care Team Attending Physician - ELAINE FRANCISCO, Jaciel Obando Primary Care Physician - SHIVA NGUYEN, REVA Villagomez This Is Your Medications List Contact prescribing [...] you for choosing us for your care. [facility] Ambulatory Visit Summaryon 0 08-29-2023 Ambulatory [...] FRANCISCO, Renate Morales Where: [facility] General Surgery Office/Clini c Noteon 08-29-2023 General [...] virus vaccine, inactivated 11/23/2022 Recorded SARS-CoV-2 (COVID-19) [id number] 12/14/2021 Recorded SARS-CoV-2 (COVID-19) mRNA BNT-162b2 vax 06/29/2021 Recorded SARS-CoV-2 (COVID-19) mRNA-1273 vaccine 01/06/2021 Recorded SARS-CoV-2 (COVID-19) mRNA-1273 vaccine 06/04/2020 Recorded SARS-CoV-2 (COVID-19) mRNA-1273 vaccine 05/07/2020 Recorded Normal [facility] Comment on above: Result Comment: Elec tronically Signed By: ELAINE FRANCISCO, aJciel Hall\Date and Time Signed: 08/29/23 16:38 EDT Reminderson 08-29-2023 Reminders - From: Hortensia Rivera LPN To: Devin - Clinical; Sent: 08/29/2023 15:20:02 EDT Show up: 07/08/2028 07:00:00 EDT Subject: colonoscopy recall Due Date/Time: 08/08/2028 07:00:00 EDT Reminder/Recall Patient due for surveillance colonoscopy 08/08/2028 due to history of polyp/family history of colon cancer. Normal [facility] Pathology Noteon 08-20-2023 Pathology Note [id number]#1.00TIFF Normal [facility] Outside Colonoscopyon 2023 Outside Colonoscopy [id number]#1.00TIFF Normal [facility] Leonides 08-09-2023 L Specimen: [id number] eceived: 08/10/23 [id number] Spec Type: Surgical Subm Dr: Jaciel Brandt MD FACS Tissues: A Colon Biopsy (SIGMOID POLYP) Procedures: HE/2, Gross/Micro L4 Age/ Patient Sex Location Account Attending Physician Abigail Washington 77/M LABELL [id number] Jaciel Brandt MD FACS SPEC NUM: [id number] RECD: 08/10/23 STATUS: [facility] NUM: [id number] DAMARI: 08/09/[address]: Jaciel Brandt MD FACS ENTERED: 08/10/[address] [facility] DR: Gonzalez Lazaro SPEC TYPE: Surgical DEPT: [facility] ORDERED: HE/2, Gross/Micro L4 ORDERED: HE/2, Gross/Micro L4 Pathological Diagnosis Descending colon polyp polypectomy: -Serrated polyp in both fragments without adenomatous glandular atypia Clinical Information Sigmoid diverticulitis, descending colon polyp. Gross Description Received in formalin, labeled with the patient's name, date of and descending colon are 2 coughlin mucosal tissue fragments measuring 0.3 x 0.3 x 0.1 cm and 0.2 x 0.1 x 0.1 cm, entirely submitted in A1. CPT Codes 94807 -------- -------- Specimen: [id number] Received: 08/10/23 Status: [facility] Num: [id number] Spec Type: Surgical Subm Dr: Jaciel Brandt MD FACS Tissues: A Colon Biopsy (SIGMOID POLYP) Procedures: BENI/Herlinda, Gross/Micky L4 -------- Patient: Abigail Washington [id number] (Continued) -------- Signed (signature on file) Humberto Perkins MD 08/14/23 1556 Normal [facility] Insurance Correspondenceon 0 07-26-2023 Insurance Correspondence [id number]#[id number] Normal [facility] ASPIRATE CULTUREon 4 Bacteria identified Aer cx Nom (Asp) GRAM STAIN 10 to 24 WHITE BLOOD CELLS/LPF 0 SQUAMOUS EPITHELIAL CELLS/LPF NO ORGANISMS SEEN CULTURE RESULTS NO GROWTH 3 DAYS Normal [facility] Comment on above: Performed By: #### 5 97-5 #### [facility] ([id number]) [address] [place] [address], [address] [place] [address] COMPREHENSIVE METABOLIC PANE [facility] 07-20-2023 Albumin [Mass/Vol] 3.5 g/dL Normal 3.2-5.3 [facility] Comment on above: Performed By: #### C MP #### [facility] ([id number]) [address] [place] [address]22 ALP [Catalytic activity/Vol] 298 U/L High 39-130 [facility] Comment on above: Performed By: #### C MP #### [facility] ([id number]) [address] [place] [address] 63980 ALT [Catalytic activity/Vol] 32 U/L Normal 0-40 [facility] Comment on above: Performed By: #### C MP #### [facility] ([id number]) [address] [place] [address] 31319 Anion gap [Moles/Vol] 10 mmol/L Normal 5-15 [facility] Comment on above: Performed By: #### C MP #### [facility] ([id number]) [address] [place] [address] 72758 AST [Catalytic activity/Vol] 36 U/L Normal 0-41 [facility] Comment on above: Performed By: #### C MP #### [facility] ([id number]) [address] [place] [address] 88429 Bilirubin [Mass/Vol] 1.0 mg/dL Normal 0.3-1.2 [facility] Comment on above: Performed By: #### C MP #### [facility] ([id number]) [address] [place] [address] 50918 Calcium [Mass/Vol] 8.8 mg/dL Normal 8.5-10.5 [facility] Comment on above: Performed By: #### C MP #### [facility] ([id number]) [address] [place] [address] 13842 Chloride [Moles/Vol] 101 mmol/L Normal 98-109 [facility] Comment on above: Performed By: #### C MP #### [facility] ([id number]) [address] [place] [address] 70914 CO2 [Moles/Vol] 25 mmol/L Normal 22-32 [facility] Comment on above: Performed By: #### C MP #### [facility] ([id number]) [address] [place] [address] 08660 Creatinine [Mass/Vol] 0.89 mg/dL Normal 0.70-1.20 [facility] Comment on above: Result Comment: METH OD TRACEABLE TO IDMS STANDARD Performed By: #### C MP #### [facility] ([id number]) [address] [place] [address] 51607 GFR/1.73 sq M.predicted among non-blacks MDRD (S/P/Bld) [Vol rate/Area] 89 mL/min/{1.73_m2} Normal >59 [facility] Comment on above: Result Comment: Reported eGFR is based on the CKD-EPI 2020 equation that does not use a race coefficient. Performed By: #### C MP #### [facility] ([id number]) [address] [place] [address] 38077 Glucose [Mass/Vol] 104 mg/dL High 65-99 [facility] Comment on above: Performed By: #### C MP #### [facility] ([id number]) [address] [place] [address] 23028 Potassium [Moles/Vol] 4.0 mmol/L Normal 3.5-5.0 [facility] Comment on above: Performed By: #### C MP #### [facility] ([id number]) [address] [place] [address] 29045 Protein [Mass/Vol] 7.8 g/dL Normal 6.0-8.0 [facility] Comment on above: Performed By: #### C MP #### [facility] ([id number]) [address] [place] [address] 14364 Sodium [Moles/Vol] 136 mmol/L Normal 134-146 [facility] Comment on above: Performed By: #### C MP #### [facility] ([id number]) [address] [place] [address] 78808 Urea nitrogen [Mass/Vol] 17 mg/dL Normal 5-27 [facility] Comment on above: Performed By: #### C MP #### [facility] ([id number]) [address] [place] [address] 31008 Cytologyon 07-20-2023 Cytology Normal [facility] Comment on above: Result Comment: [facility] [address] [place] [address] Cytology Consultation Patient Name:ABIGAIL WASHINGTON:1945 (Age: 77)Gender:MTaken:07/20/2023eported:07/21/2023 11:52Physician(s):Zack Gibson M.D. ([phone])Copy To:Jaciel Echavarria D.O. Rec. #:[id number]: #[id number] Final Cytologic Diagnosis Bile leak fluid: No malignant cells identified. community health/07/21/2023 Interpretation performed at [facility], [address] , [place] [address], License number: [id number].Electronically Signed Out By Jerrod Batista M.D. Clinical History None given. Gross Description Received was 1,600 mL of brown fluid unfixed labeled as Padmini, bile leak . CytoLyt added in lab. Specimen placed in formalin at 14:00 and had a total fixation time of 12 hours. 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 A [...] Gibson MD on 07/20/2023 12:51 PM Normal [facility] NM HEPATOBILIARY SYS IMAGING WO PHARMACOLOGIC AGENTon [...] Wan MD on 07/20/2023 7:35 AM Normal [facility] PLATELET COUNT AND MPVon Platelet mean volume (Bld) [Entitic vol] 7.2 fL Normal 7-12 [facility] Comment on above: Performed By: #### P LTCT, PINR #### [facility] ([id number]) [address] [place] [address] 70060 Platelets (Bld) [#/Vol] 247 10*3/uL Normal 150-450 [facility] Comment on above: Performed By: #### P LTCT, PINR #### [facility] ([id number]) [address] [place] [address] 77234 PROTIME AND INRon 07-20-2023 INR Coag (PPP) [Relative time] 1.1 {INR} Normal 0.8-1.1 [facility] Comment on above: Performed By: #### P LTCT, PINR #### [facility] ([id number]) [address] [place] [address] 94009 PT Coag (PPP) [Time] 12.8 s Normal 9.8-13.2 [facility] Comment on above: Result Comment: NEW REFERENCE RANGE Performed By: #### P LTCT, PINR #### [facility] ([id number]) [address] [facility] [place] [address] Consent for Procedure/Surger yon 07-12-2023 Consent for Procedure/Surgery [id number]#1.00TIFF [facility] Ambulatory Visit Summaryon 0 07-11-2023 Ambulatory Visit Summary ABIGAIL WASHINGTON :1945 Visit Date:07/11/2023 Ambulatory Visit Instructions Your Diagnosis Positive colorectal cancer screening using Cologuard test Your Care Team Attending Physician - Jaciel BRANDT MD Primary Care Physician - REVA SHANNON [...] you for choosing us for your care. [facility] Facesheeton 07-11-2023 Facesheet [id number]#1.00TIFF [facility] Physician Referralon 024 Physician Referral [id number]#1.00TIFF [facility] Multiple labson 05-27-2023 [facility] Surgical Pathologyon 024 [facility] Leonides 05-24-2023 L Specimen: [id number] eceived: 05/25/23 Status: [facility] Num: [id number] Spec Type: Surgical Subm Dr: Jaciel Echavarria DO Tissues: A Gallbladder (GALLBLADDER) Procedures: HE, Gross/Micro L3 Age/ Patient Sex Location Account Attending Physician Abigail Washington 77/M LABELL [id number] Jaciel Echavarria DO SPEC NUM: [id number] RECD: 05/25/23 STATUS: [facility] NUM: [id number] DAMARI: 05/24/[address]: Jaciel Echavarria DO [...] brown to green-de jesus and denuded. . Chief Executive sections are submitted in one cassette labeled A1. CPT Codes 27217 -------- -------- Specimen: [id number] Received: 05/25/23-1407 Status: [facility] Num: [id number] Spec Type: Surgical Subm Dr: Jaciel Echavarria DO Tissues: A Gallbladder (GALLBLADDER) Procedures: BENI, Obdulio/Micky L3 -------- Patient: Abigail Washington [id number] (Continued) -------- Signed (signature on file) Nikita Dunne MD 05/26/23 1220 Normal [facility] NM STRESS/REST MULTIon 06-06 NM STRESS/REST MULTI Patient: ABIGAIL WASHINGTON Exam Date: 06/06/2022 : 1945 Gender:M Ordering : REVA SHANNON [facility] Admission #: [id number] Family : Order #: [id number] CLICK HERE TO VIEW EXAM RADIOLOGY REPORT [...] M.D. on 06/07/2022 at 07:05 Normal [facility] INSULINon 05-19-2022 Insulin 11.6 uIU/mL Normal 2.6-24.9 [facility] Comment on above: Performed By: #### I NSULIN #### [facility] [address] [place] [address] Dr. Karely Perkins CBC AUTO DIFFon 05-18-2022 BASO # 0.0 103/ul Normal 0.0-0.1 [facility] Comment on above: Performed By: #### C BC #### [facility] [address] [place] [address] Dr. Karely Perkins Basophils/100 WBC (Bld) 0.6 % Normal 0.2-2.0 [facility] Comment on above: Performed By: #### C BC #### [facility] [address] [place] [address] Dr. Karely Perkins EO # 0.2 103/ul Normal 0.0-0.7 [facility] Comment on above: Performed By: #### C BC #### [facility] [address] [place] [address] Dr. Karely Perkins Eosinophils/100 WBC (Bld) 3.9 % Normal 0.9-7.0 [facility] Comment on above: Performed By: #### C BC #### [facility] [address] [place] [address] Dr. Karely Perkins Erythrocyte distribution width (RBC) [Ratio] 12.8 % Normal 11.0-15.0 [facility] Comment on above: Performed By: #### C BC #### [facility] [address] [place] [address] Dr. Karely Perkins Hematocrit (Bld) [Volume fraction] 48.4 % Normal 42.0-54.0 [facility] Comment on above: Performed By: #### C BC #### [facility] [address] [place] [address] Dr. Karely Perkins Hemoglobin (Bld) [Mass/Vol] 15.8 g/dL Normal 14.0-18.0 [facility] Comment on above: Performed By: #### C BC #### [facility] [address] [place] [address] Dr. Karely Perkins IG # 0.01 10e3/ul Normal 0.00-0.03 [facility] Comment on above: Performed By: #### C BC #### [facility] [address] [place] [address] Dr. Karely Perkins IG % 0.2 % Normal 0.0-0.5 [facility] Comment on above: Performed By: #### C BC #### [facility] [address] [place] [address] Dr. Karely Perkins LYMPH # 1.4 103/ul Normal 1.2-3.8 [facility] Comment on above: Performed By: #### C BC #### [facility] [address] [place] [address] Dr. Karely Perkins Lymphocytes/100 WBC (Bld) 28.5 % Normal 20.5-60.0 [facility] Comment on above: Performed By: #### C BC #### [facility] [address] [place] [address] Dr. Karely Perkins MANUAL DIFF REQ NO Normal [facility] Comment on above: Performed By: #### C BC #### [facility] [address] [place] [address] Dr. Karely Perkins MCH (RBC) [Entitic mass] 28.7 pg Normal 25.9-34.0 [facility] Comment on above: Performed By: #### C BC #### [facility] [address] [place] [address] Dr. Karely Perkins MCHC (RBC) [Mass/Vol] 32.6 g/dL Normal 29.9-35.2 [facility] Comment on above: Performed By: #### C BC #### [facility] [address] [place] [address] Dr. Karely Perkins MCV (RBC) [Entitic vol] 87.8 fL Normal 80.0-94.0 [facility] Comment on above: Performed By: #### C BC #### [facility] [address] [place] [address] Dr. Karely Perkins MONO # 0.5 103/ul Normal 0.3-0.8 [facility] Comment on above: Performed By: #### C BC #### [facility] [address] [place] [address] Dr. Karely Perkins Monocytes/100 WBC (Bld) 10.3 % Normal 1.7-12.0 [facility] Comment on above: Performed By: #### C BC #### [facility] [address] [place] [address] Dr. Karely Perkins NEUT # 2.7 103/ul Normal 1.4-6.5 [facility] Comment on above: Performed By: #### C BC #### [facility] [address] [place] [address] Dr. Karely Perkins Neutrophils/100 WBC (Bld) 56.5 % Normal 43.0-75.0 [facility] Comment on above: Performed By: #### C BC #### [facility] [address] [address] [address] Karely Perkins Platelet mean volume (Bld) [Entitic vol] 9.3 fL Critically low 9.5-13.5 [facility] Comment on above: Performed By: #### C BC #### [facility] [address] [place] [address] Dr. Karely Perkins PLT 184 103/ul Normal 150-450 [facility] Comment on above: Performed By: #### C BC #### [facility] [address] [place] [address] Dr. Karely Perkins RBC 5.51 106/ul Normal 4.70-6.10 [facility] Comment on above: Performed By: #### C BC #### [facility] [address] [place] [address] Dr. Karely Perkins WBC 4.9 103/ul Normal 4.0-11.0 [facility] Comment on above: Performed By: #### C BC #### [facility] [address] [place] [address] Dr. Karely Perkins GLYCOHEMOGLOBIN A1Con 2022 ADA RECOMMENDATION SEE BELOW Normal [facility] Comment on above: Result Comment: ADA RECOMMENDED LIMIT 4.0 - 6.0 ADA THERAPEUTIC TARGET < 7.0 ACTION SUGGESTED > 7.0 Performed By: #### A 1C #### [facility] [address] [place] [address] Dr. Karely Perkins Glucose [Mass/Vol] 120 mg/dL Normal [facility] Comment on above: Performed By: #### A 1C #### [facility] [address] [place] [address] Dr. Karely Perkins HbA1c (Bld) [Mass fraction] 5.8 % Normal 4.5-6.2 [facility] Comment on above: Performed By: #### A 1C #### [facility] [address] [place] [address] Dr. Karely Perkins LIPID PROFILEon 05-18-2022 CHOL-HDL RATIO NORM SEE BELOW Normal [facility] Comment on above: Result Comment: 3.3 - 4.4 LOW RISK 4.4 - 7.1 AVERAGE RISK 7.1 - 11.0 MODERATE RISK >11.0 HIGH RISK Performed By: #### C MP, LIPID #### [facility] [address] [address] [address] Karely Perkins Cholesterol [Mass/Vol] 169 mg/dL Normal <=200 [facility] Comment on above: Performed By: #### C MP, LIPID #### [facility] [address] [address] [address] Karely Perkins Cholesterol in HDL [Mass/Vol] 74 mg/dL Critically high 40-60 [facility] Comment on above: Performed By: #### C MP, LIPID #### [facility] [address] [place] [address] Dr. Karely Perkins Cholesterol in LDL [Mass/Vol] 80.6 mg/dL Normal [facility] Comment on above: Performed By: #### C MP, LIPID #### [facility] [address] [place] [address] Dr. Karely Perkins Cholesterol.total/C holesterol in HDL [Mass ratio] 2.3 {ratio} Normal [facility] Comment on above: Performed By: #### C MP, LIPID #### [facility] [address] [place] [address] Dr. Karely Perkins HDL NORMAL > or = 60 mg/dl - LO W CARDIOVASCULAR RISK <40 mg/dl - HIGH CARDIOVASCULAR RISK Normal [facility] Comment on above: Performed By: #### C MP, LIPID #### [facility] [address] [place] [address] Dr. Karely Perkins LDL CALC NORMAL SEE BELOW Normal [facility] Comment on above: Result Comment: <100 mg/dl OPTIMAL 100 - 129 mg/dl NEAR OR ABOVE OPTIMAL 130 - 159 mg/dl BORDERLINE HIGH 160 - 189 mg/dl HIGH >190 mg/dl VERY HIGH Performed By: #### C MP, LIPID #### [facility] [address] [place] [address] Dr. Karely Perkins Triglyceride [Mass/Vol] 72 mg/dL Normal <=150 [facility] Comment on above: Performed By: #### C MP, LIPID #### [facility] [address] [place] [address] Dr. Karely Perkins VLDL CALC 14.4 mg/dL Normal [facility] Comment on above: Performed By: #### C MP, LIPID #### [facility] [address] [place] [address] Dr. Karely Perkins PROF 14(COMP METB)on 023 Albumin [Mass/Vol] 3.7 g/dL Normal 3.4-5.0 [facility] Comment on above: Performed By: #### C MP, LIPID #### [facility] [address] [place] [address] Dr. aKrely Perkins Albumin/Globulin [Mass ratio] 1.0 {ratio} Normal [facility] Comment on above: Performed By: #### C MP, LIPID #### [facility] [address] [place] [address] Dr. Karely Perkins ALP [Catalytic activity/Vol] 117 U/L Critically high 46-116 [facility] Comment on above: Performed By: #### C MP, LIPID #### [facility] [address] [place] [address] Dr. Karely Perkins ALT [Catalytic activity/Vol] 24 U/L Normal 16-63 [facility] Comment on above: Performed By: #### C MP, LIPID #### [facility] [address] [place] [address] Dr. Karely Perkins Anion gap [Moles/Vol] 9.4 mmol/L Normal [facility] Comment on above: Performed By: #### C MP, LIPID #### [facility] [address] [place] [address] Dr. Karely Perkins AST [Catalytic activity/Vol] 34 U/L Normal 15-37 [facility] Comment on above: Performed By: #### C MP, LIPID #### [facility] [address] [place] [address] Dr. Karely Perkins Bilirubin [Mass/Vol] 0.7 mg/dL Normal 0.2-1.0 [facility] Comment on above: Performed By: #### C MP, LIPID #### [facility] [address] [place] [address] Dr. Karely Perkins Calcium [Mass/Vol] 9.0 mg/dL Normal 8.5-10.1 [facility] Comment on above: Performed By: #### C MP, LIPID #### [facility] [address] [place] [address] Dr. Karely Perkins Chloride [Moles/Vol] 108 mmol/L Critically high 98-107 [facility] Comment on above: Performed By: #### C MP, LIPID #### [facility] [address] [place] [address] Dr. Karely Perkins CO2 [Moles/Vol] 30.7 mmol/L Normal 21.0-32.0 [facility] Comment on above: Performed By: #### C MP, LIPID #### [facility] [address] [place] [address] Dr. Karely Perkins Creatinine [Mass/Vol] 0.90 mg/dL Normal 0.70-1.30 [facility] Comment on above: Performed By: #### C MP, LIPID #### [facility] [address] [place] [address] Dr. Karely Perkins EGFR-AF WALLISIAN >60 Normal >=60 [facility] Comment on above: Performed By: #### C MP, LIPID #### [facility] [address] [place] [address] Dr. Karely Perkins EGFR-NON AF WALLISIAN >60 Normal >=60 [facility] Comment on above: Performed By: #### C MP, LIPID #### [facility] [address] [place] [address] Dr. Karely Perkins Globulin (S) [Mass/Vol] 3.6 g/dL Normal [facility] Comment on above: Performed By: #### C MP, LIPID #### [facility] [address] [place] [address] Dr. Karely Perkins Glucose [Mass/Vol] 109 mg/dL Critically high 74-106 [facility] Comment on above: Performed By: #### C MP, LIPID #### [facility] [address] [place] [address] Dr. Karely Perkins Potassium [Moles/Vol] 4.1 mmol/L Normal 3.5-5.1 [facility] Comment on above: Performed By: #### C MP, LIPID #### [facility] [address] [address] [address] Karely Perkins Protein [Mass/Vol] 7.3 g/dL Normal 6.4-8.2 [facility] Comment on above: Performed By: #### C MP, LIPID #### [facility] [address] [place] [address] Dr. Karely Perkins Sodium [Moles/Vol] 144 mmol/L Normal 136-145 [facility] Comment on above: Performed By: #### C MP, LIPID #### [facility] [address] [place] [address] Dr. Karely Perkins Urea nitrogen [Mass/Vol] 20.0 mg/dL Critically high 7.0-18.0 [facility] Comment on above: Performed By: #### C MP, LIPID #### [facility] [address] [place] [address] Dr. Karely Perkins Urea nitrogen/Creatinine [Mass ratio] 22.2 mg/mg Normal [facility] Comment on above: Performed By: #### C MP, LIPID #### [facility] [address] [place] [address] Dr. Karely Perkins US SCROTUMon 11-18-2021 US [...] by: DEEP HOYOS Date: 2021-11-18 12:10 Normal [facility] Vital Signs Date Time Vital Sign Value Performing Clinician Lucius keane 01-10-2024 13:49-0500 Blood Pressure Location Jaciel NILL [facility] 01-10-2024 13:49-0500 Diastolic blood pressure 94 mm[Hg] Jaciel NILL [facility] 01-10-2024 13:49-0500 Heart rate 72 /min Jaciel NILL [facility] 01-10-2024 13:49-0500 Respiratory rate 16 /min Jaciel NILL [facility] 01-10-2024 13:49-0500 Systolic blood pressure 146 mm[Hg] Jaciel NILL [facility] 07-11-2023 13:24-0400 Blood Pressure Location Jaciel NILL [facility] 07-11-2023 13:24-0400 Diastolic blood pressure 80 mm[Hg] Jaciel NILL [facility] 07-11-2023 13:24-0400 Heart rate 72 /min Jaciel NILL [facility] 07-11-2023 13:24-0400 Respiratory rate 16 /min Jaciel NILL [facility] 07-11-2023 13:24-0400 Systolic blood pressure 126 mm[Hg] Jaciel NILL [facility] 06-07-2023 11:36-0400 Body height 170.2 cm El Mccabe ORDER ENTRY REPRESENTATIVE-MOTOR VEHICLES SUPERVISOR [facility] 06-07-2023 11:36-0400 Body mass index (BMI) [Ratio] 25.31 kg/m2 El Mccabe ORDER ENTRY REPRESENTATIVE-MOTOR VEHICLES SUPERVISOR Work Phone[facility] 06-07-2023 11:36-0400 Body weight 73.3 kg El Mccabe ORDER ENTRY REPRESENTATIVE-MOTOR VEHICLES SUPERVISOR [facility] 06-07-2023 11:36-0400 Diastolic blood pressure 95 mm[Hg] El Mccabe ORDER ENTRY REPRESENTATIVE-MOTOR VEHICLES SUPERVISOR [facility] 06-07-2023 11:36-0400 Heart rate 81 /min El Mccabe ORDER ENTRY REPRESENTATIVE-MOTOR VEHICLES SUPERVISOR [facility] 06-07-2023 11:36-0400 Systolic blood pressure 178 mm[Hg] El Mccabe ORDER ENTRY REPRESENTATIVE-MOTOR VEHICLES SUPERVISOR Work Phone: [facility] Encounters Encounter Date Encounter Type Care Provider Facility Start: 01-10-2024 End: 01-10-2024 ambulatory Jaciel BRANDT Facility:[facility] Start: 01-10-2024 End: 01-10-2024 [facility] Start: 11-21-2023 End: 11-21-2023 ambulatory Jaciel R NILL Facility:[facility] Start: 10-18-2023 ambulatory REVA Lamb y:[facility] Start: 08-29-2023 End: 08-29-2023 ambulatory Jaciel R GABINOL Facility:[facility] Start: 08-29-2023 End: 08-29-2023 Patient encounter procedure Jaciel R GABINOL [facility] Start: 08-09-2023 End: 08-09-2023 ambulatory Jaciel Lloydl [facility] Work Phone: Start: 08-09-2023 End: 08-09-2023 Departed Referred DO Jaciel Echavarria Work Phone: [facility] Start: 08-09-2023 End: 08-09-2023 ambulatory Jaciel Obando GABINOeJffry Facility:[id number] Start: 07-20-2023 End: 07-20-2023 ambulatory [facility] Start: 07-20-2023 End: 07-20-2023 ambulatory JACIEL Yap ASHOK [facility] Start: 07-11-2023 End: 07-11-2023 ambulatory [facility] Facility:[facility] Start: 07-11-2023 End: 07-11-2023 Patient encounter procedure Jaciel BRANDT [facility] Start: 06-19-2023 ambulatory Jaciel BRANDT Facility:[facility] Start: 06-16-2023 ambulatory Jaciel BRANDT Facility:[facility] [place] Start: 06-07-2023 End: 06-07-2023 ambulatory [facility] Start: 06-07-2023 End: 06-07-2023 Patient encounter procedure [facility] ORDER ENTRY REPRESENTATIVE-MOTOR VEHICLES SUPERVISOR Work Phone: [facility] Comment on above: Status post laparosc opic cholecystectomy (Primary Dx); Status post umbilical hernia repair, follow-up exam Start: 05-31-2023 Orders Only Not In System Ref Prov [facility] Start: 05-25-2023 End: 05-25-2023 Departed Referred DO Jaciel Echavarria Work Phone: [facility] [place] [facility] Start: 05-25-2023 End: 05-25-2023 ambulatory Jaciel Echavarria [facility] Work Phone: Start: 06-06-2022 End: 06-07-2022 ambulatory REVA SHANNON Facility:[facility] Start: 05-18-2022 End: 05-19-2022 ambulatory REVA SHANNON Facility:[facility] Start: 11-18-2021 End: 11-19-2021 ambulatory REVA SHANNON Facility:[facility] Start: 05-07-2020 End: 05-07-2020 Patient encounter procedure Wendy Flood Work Phone: [facility] Work Phone: Procedures Date Procedure Procedure Detail Performing Clinician Start: 08-09-2023 Colonoscopy Jaciel BRANDT Start: 05-27-2023 MULTIPLE LABS Not In System Ref Prov Start: 05-25-2023 Level i surg pathology gross examination only Not In System Ref Prov Start: 05-18-2022 PSA screening REVA SHANNON Comment on above: Performed By: #### PSASC #### [facility] [address] [place] [address] Dr. Karely Perkins Start: 05-07-2020 Imm. administration COVID19 Moderna dose 1 Wendy Flood Work Phone: Start: 05-07-2020 SARS-CoV-2 vaccine, 0.5ml Moderna Wendy Botelloer Work Phone: Start: 09-23-2015 Colonoscopy Jaciel BRANDT Start: 09-23-2015 Esophagogastroduodenoscopy Jaciel BRANDT Excision of basal cell carcinoma Jaciel BRANDT Comment on above: back Excision of squamous cell carcinoma Jaciel BRANDT Comment on above: left shoulder History of cholecystectomy Statu s post laparoscopic cholecystectomy El Mccabe ORDER ENTRY REPRESENTATIVE-MOTOR VEHICLES SUPERVISOR Work Phone: Repair of umbilical hernia Jesusita munsonmarly BRANDT Tonsillectomy Jaciel BRANDT Plan of Treatment Date Care Activity Detail Author Start: 06-06-2024 Adult BMI Screening Adult BMI Screening [facility] Start: 06-06-2024 Tobacco Screening Tobacco Screening [facility] Start: 11-05-2023 Influenza vaccination Influenza Vaccine [facility] Start: 06-04-2020 2nd Dose- COVID Vaccine [facility] Work Phone: Start: 08-23-2011 Fall Risk Screening Fall Risk Screening [facility] Start: 1996 Administration of varicella zoster vaccine Zoster (Shingles) Vaccine (1 of 2) [facility] Start: 1965 DTaP,Tdap and Td Vaccines (1 - Tdap) DTaP,Tdap and Td Vaccines (1 - Tdap) [facility] Start: 1964 Adult BMI Follow Up Plan Adult BMI Follow Up Plan [facility] Start: 1958 Depression Screening Depression Screening [facility] Start: 1946 Medicare Annual Wellness Visit Medicare Annual Wellness Visit [facility] Immunizations Immunization Date Immunization Notes Care Provider Fa cili 11-23-2022 influenza virus vaccine, unspecified formulation El Mccabe ORDER ENTRY REPRESENTATIVE-MOTOR VEHICLES SUPERVISOR Work Phone: [facility] 12-14-2021 SARS-CoV-2 (COVID-19 ) [id number].[id number] Jaciel BRANDT [facility] 06-29-2021 SARS-CoV-2 (COVID-19 ) mRNA BNT-162b2 vax Jaciel BRANDT [facility] 01-06-2021 SARS-CoV-2 (COVID-19 ) mRNA-1273 vaccine Jaciel BRANDT [facility] 06-04-2020 SARS-CoV-2 (COVID-19 ) mRNA-1273 vaccine Jaciel BRANDT [facility] 05-07-2020 2nd Dose MODERNA COVID-19 Vaccine; Translations: [Moderna COVID-19 Vaccine] Luiz Jimenez [facility] Comment on above: Note: Patient tolera keely well. No signs or symptoms of adverse reactions. Patient waited a minimum of 15 minutes. Payers Date Payer Category Payer Self-pay 2022 Medicare A[employer] MEDICARE A ETNA MEDICARE PLAN (PPO) [id number] 2022-Present [phone] [address] [place] [address] [id number] 2011 Unknown 1 - Medicare FQHC CGS PPS [id number] 1959 Medicare [id number] 1959 Medicare [id number] 1959 Unknown [id number] [id number] 9.5.10.6.3 1946 Unknown [id number] 2.16.840.1.534113.3.579.2.593 1946 Unknown [id number] 2.16.840.1.298321.3.579.2.593 1946 Unknown [id number] 2.16.840.1.547990.3.579.2.593 1946 Unknown [id number] 2.16.840.1.820514.3.579.2.1286 1946 Unknown [id number] 2.16.840.1.144980.3.579.2.1286 1946 Unknown [id number] 2.16.840.1.818526.3.579.2.1286 1946 Unknown [id number] 2.16.840.1.452773.3.579.2.1286 1946 Unknown [id number] 2.16.840.1.737093.3.579.2.128 1946 Unknown [id number] 2.16.840.1.509198.3.579.2.1286 1946 Unknown [id number] 2.16.840.1.382028.3.579.2.1286 1946 Unknown [id number] 2.16.840.1.680427.3.579.2.727 1946 Unknown [id number] 2.16.840.1.260016.3.579.2.727 1946 Unknown [id number] 2.16.840.1.624908.3.579.2.72 1946 Unknown [id number] 2.16.840.1.611812.3.579.2.727 1946 Unknown [id number] 2.16.840.1.071203.3.579.2.72 1946 Unknown [id number] 2.16.840.1.852535.3.579.2.727 Medicare Medicare Outpatient [id number] Unknown [facility] Claims [id number] Unknown [id number] 2.840.1.359093.3.579.2.531 Unknown [id number] [id number] Social History Date Type Detail Facility Tobacco smoking status Unknown if ever sm oked [facility] Start: 1945 Sex Assigned At Male [facility] Start: 08-15-2018 End: 06-07-2023 History of Social function [facility] Start: 08-15-2018 End: 06-07-2023 Childcare [facility] Childcare Unknown [facility] Start: 1945 Sex Assigned At Not on file P [facility] Start: 06-07-2023 End: 01-10-2024 Tobacco smoking status NHIS Ex-smoker [facility] End: 03-06-1983 History of tobacco use Current smoker [facility] End: 03-06-1983 History of tobacco use Cigarette Smoker [facility] Start: 06-07-2023 Tobacco use and exposure Smokeless tobacco non-user [facility] Start: 06-07-2023 Alcohol intake Current drinke r of alcohol (finding) [facility] Functional Status Date Assessment Result Facility 01-10-2024 Functional Status N/A [facility] [place] 07-11-2023 Functional Status N/A [facility] [place] Clinical Notes 06-07-2023 to 01-10-2024 JEVON Singh - 06/07/2023 11:30 AM EDT Note Date & Type Note Facility 01-10-2024 Note General Surgery Offi ce/Clinic Note Chief Complaint consultation for bilateral inguinal bulges HPI Staff 78 year old male presents on self referral consultation for bilateral inguinal bulges and right flank discomfort. Reports noting bulges approximately two weeks ago. Denies discomfort from bulges. Denies nausea or vomiting. History of Present Illness 78 yo male with h/o htn, hypercholesterolemia, GERD, presents for evaluation of right lower abd bulges and RUQ pain/pressure; scheduled for robotic-assisted umbilical hernia repair for recurrent umbilical/incision hernia; patient had biloma in RUQ after cholecystectomy in May 2023; had just aspiration of biloma; feels same pain and pressure that he had when biloma was present; area reportedly aspirated at [facility]; will obtain records; just noticed bulges recently, no pain or skin changes, no injury. no other abd operations; no asa or NSAID use; denies fevers, no N/V; no jaundice, no recent lab work or imaging. Review of Systems PHQ Score Initial Depression [...] in stool, no change in bowel habits, yes abdominal pain, no hepatitis. Genitourinary: no kidney [...] & Measurements HR: 72(Peripheral) RR: 16 BP: 146/94 HT: 67 in HT: 170 cm WT: 68.2 kg WT: 150.04 lb BMI: 23.6 HEENT: normal conjunctiva, sclera clear, no scleral icterus, EOM intact, PERRLA, oral mucosa moist without lesions. Neck: trachea midline, no mass, symmetric, no thyromegaly or nodules, no adenopathy Respiratory: lungs CTA, respirations non labored. Cardiovascular: regular rate and rhythm, no murmur, no pedal edema or varicosities. Gastrointestinal: soft, non distended, no tenderness, no masses, reducible umbilical incisional hernia, 2.5 cm fascial defect; no skin changes, nontender, no evidence of inguinal hernias bilaterally; well healed right upper quadrant scar; nontender, diastasis recti yes, no hepatosplenomegaly; normal bs Lymphatic: no cervical adenopathy, no supraclavicular adenopathy. Musculoskeletal: normal gait, digits and nails without infection, nodes, cyanosis, clubbing. Skin: no rashes, no lesions, no ulcers, no subcutaneous nodules, induration. Psychiatric/Neuro: oriented to time, place, person, judgement normal, affect appropriate for age, insight intact, no focal deficits. Tests: review of old records completed , Assessment/Plan 1. Right upper quadrant pain (R10.11: Right upper quadrant pain) will obtain labs, abd/pelvic ct scan to evaluate for possible recurrent biloma; will call patient with results; call sooner if problems/questions.s Ordered: Basic Metabolic Panel CBC w/ Auto Diff Hepatic Function Panel 2. Biloma following surgery (T81.89XA: Other complications of procedures, not elsewhere classified, initial encounter) see # 1 Ordered: Basic Metabolic Panel CBC w/ Auto Diff Hepatic Function Panel 3. Recurrent umbilical hernia (K42.9: Umbilical hernia without obstruction or gangrene) plan robotic-assisted repair with mesh once above issues evaluated; informed consent obtained. Ordered: Basic Metabolic Panel CBC w/ Auto Diff Hepatic Function Panel Other specified disorders of peritoneum (K66.8: Other specified disorders of peritoneum) Follow-up No qualifying data available Problem List/Past Medical History Ongoing Anxiety Benign neoplasm of descending colon Biloma following surgery Diverticulosis Essential hypertension History of colon polyps Hypercholesterolemia Hyperlipidemia Lesion of liver Leukocytosis Positive colorectal cancer screening using Cologuard test Recurrent umbilical hernia Right upper quadrant pain Sigmoid diverticulosis Historical BMI 25.0-25.9,adult Overweight Procedure/Surgical History Colonoscopy (08/09/2023), Colonoscopy (09/23/2015), EGD - esophagogastroduodenoscopy (09/23/2015), Cholecystectomy, Excision o (more content not included)... [facility] Comment on above: Result Comment: Elec tronically Signed By: ELAINE FRANCISCO, Jaciel Hall\Date and Time Signed: 01/10/24 16:25 EST 01-10-2024 Evaluation + Plan note Diagnostic Tests PendingHepatic Function Panel 01/10/24Basic Metabolic Panel 01/10/24CBC w/ Auto Diff 01/10/24 [facility] General Surgery [place] 11-21-2023 Note General Surgery Offi ce/Clinic Note [...] required percutaneous drainage, which was done in [place]; no pain or skin changes, no N/V [...] Mother and Bro (more content not included)... [facility] Comment on above: Result Comment: Elec [...] virus vaccine, inactivated 11/23/2022 Recorded SARS-CoV-2 (COVID-19) [id number].[id number] 12/14/2021 Recorded SARS-CoV-2 (COVID-19) mRNA BNT-162b2 vax 06/29/2021 Recorded SARS-CoV-2 (COVID-19) mRNA-1273 vaccine 01/06/2021 Recorded SARS-CoV-2 (COVID-19) mRNA-1273 vaccine 06/04/2020 Recorded SARS-CoV-2 (COVID-19) mRNA-1273 vaccine 05/07/2020 Recorded [facility] Comment on above: Result Comment: Elec [...] Status post laparoscopic cholecystectomy [Z90.49] JEVON SINGH [facility] General Surgery [place] This note was created with the assistance of a speech recognition program. While intending to generate a timely document that accurately reflects the content of the visit, no guarantee can be provided that every grammatical or spelling mistake has been or will be identified or corrected. Thank you for your understanding. JEVON Singh 06/07/23 1150 documented in this encounter [facility] Evaluation + Plan note No data available for this section [facility] Evaluation + Plan note Future Appointments Appointment Date:10/18/2023 08:15:00 AM Scheduled Provider:Renate Brock MD Location:[facility] Appointment Type:URO New Patient [facility] Evaluation note No assessment information [facility] Work Phone: Evaluation note Diagnosis Status post laparoscopic cholecystectomy- Primary Other postprocedural status Status post umbilical hernia repair, follow-up exam Follow-up examination, following other surgery [facility] No data available for this section [facility] InstructionsNot on filedocumented in this encounter [facility]ructionsNot on filedocumented in this encounter [facility] No data available for this section [facility] Reason for Referral No Reason for Referral Recorded No data available for this section No data available for this section No data available for this section Assessments Findings Encounter Date Encounter for Immunization 1st COVID Vaccine susan Nguyen Remigio NGUYEN 05/07/2020 Instructions Instructions not [...] this section No Family History Records Found No data available [...] content) DATE CREATED AUTHOR 06/11/2022 [facility] DATE CREATED AUTHOR AUTHOR'S ORGANIZ ATION 07/22/2023 [facility] DATE CREATED AUTHOR AUTHOR'S ORGANIZ ATION 08/06/2023 [facility] DATE CREATED AUTHOR AUTHOR'S ORGANIZ ATION 01/07/2024 [facility] DATE CREATED AUTHOR AUTHOR'S ORGANIZ ATION 01/12/2024 [facility] Care Teams (unrecognized sec tion and content) Team Status: Inactive Member Role Status Dates Jaciel Echavarria DO Attending Provider Active Start: May 25, 2023 End: May 25, 2023 Virtual Reality Specialist Relationship Specialty Start Date End Date Reva Shannon, ORDER ENTRY REPRESENTATIVE-MOTOR VEHICLES SUPERVISOR [address] [facility], [facility] [place] [address] PCP - General Family Medicine 06/01/23 Team [...] and umbilical hernia repair performed 05/24/23 at [facility] FOR RECORDS PERTAINING TO PATIENTS WHO ARE [...] BE BASED ON THE PRIMARY CLINICAL RECORDS. [facility] [employer] [facility]. provides no warranty or guarantee of the accuracy or completeness of information in this document.
[2024-01-15 07:31] LABS: Anion Gap 13.1; Calcium 8.8 mg/dL (8.5-10.1); Carbon Dioxide 28.4 mmol/L (21.0-32.0); Chloride 107 mmol/L (98-107); Estimated GFR (African America >60 (>=60 mL/min/1.73m^2); Estimated GFR (Non-African Ame >60 (>=60 mL/min/1.73m^2); Glucose 111 mg/dL (74-106); Potassium 4.5 mmol/L (3.5-5.1); Sodium 144 mmol/L (136-145)
[2024-01-15 07:44] LABS: Basophils Percent Auto 0.7 % (0.2-2.0); Eosinophils Absolute Auto 0.3 10^3/uL (0.0-0.7); Eosinophils Percent Auto 6.3 % (0.9-7.0); Hematocrit 47.2 % (42.0-54.0); Hemoglobin 15.4 g/dL (14.0-18.0); Lymphocytes Absolute Auto 1.5 10^3/uL (1.2-3.8); Lymphocytes Percent Auto 32.9 % (20.5-60.0); Mean Corpuscular HGB Conc 32.6 g/dL (29.9-35.2); Mean Corpuscular Hemoglobin 28.7 pg (25.9-34.0); Mean Corpuscular Volume 87.9 fL (80.0-94.0); Mean Platelet Volume 9.7 fL (9.5-13.5); Monocytes Absolute Auto 0.4 10^3/uL (0.3-0.8); Monocytes Percent Auto 8.8 % (1.7-12.0); Neutrophils Absolute Auto 2.3 10^3/uL (1.4-6.5); Neutrophils Percent Auto 51.3 % (43.0-75.0); Platelet Count 210 10^3/uL (150-450); Red Blood Count 5.37 10^6/uL (4.70-6.10); Red Cell Distribution Width 13.6 % (11.0-15.0); White Blood Count 4.4 10^3/uL (4.0-11.0)
[2024-01-15 09:05] LABS: Alanine Aminotransferase 24 U/L (16-63); Albumin Globulin Ratio 0.9; Albumin Level 3.5 g/dL (3.4-5.0); Alkaline Phosphatase 179 U/L (46-116); Aspartate Amino Transferase 28 U/L (15-37); Bilirubin Direct 0.2 mg/dL (0.0-0.2); Bilirubin Total 0.8 mg/dL (0.2-1.0); Globulin 3.8 g/dL; Total Protein 7.3 g/dL (6.4-8.2)
== END 2024-01-15 07:11 | disposition home or self-care (01) ==
LOC: LAB 07:10
PROVIDERS: PCP Nurse Practitioner Family; Visit Provider Surgery
DX: R10.11 Right upper quadrant pain (principal); T81.89XA Other complications of procedures, not elsewhere classified, initial encounter; K42.9 Umbilical hernia without obstruction or gangrene; K44.9 Diaphragmatic hernia without obstruction or gangrene
CPT/HCPCS: 36415; 74177; 80048; 80076; 85025; Q9967

== ENCOUNTER 2024-01-17 06:24 | Day surgery (SDC) | payer MEDICARE, SELFPAY ==
[2024-01-03 10:50] VITALS: BP 161/89; PULSE 59; TEMP 36.4; O2SAT 99; BMI 23.7
[2024-01-17] VITALS (19 sets, daily range): BP systolic 124–181; BP diastolic 86–98; PULSE 62–76; TEMP 36.2–36.5; O2SAT 91–99; BMI 22.9; BMI 31.6
--- NOTE | 2024-01-17 | OP_ITS ---
OPERATION DATE: 01/17/2024 PREOPERATIVE DIAGNOSIS: Recurrent reducible umbilical hernia. POSTOPERATIVE DIAGNOSIS: Recurrent reducible umbilical hernia with 3 cm defect. PROCEDURE: Robotic assisted umbilical herniorrhaphy with 9 cm Symbotex mesh insertion. SURGEON: Jeronimo Brandt M.D. ANESTHESIA: General endotracheal as well as bilateral TAP block per Dr. Dc. ESTIMATED BLOOD LOSS: Less than 10 mL. INDICATIONS AND CONSENT: Patient is a 78-year-old male with a history of previous primary repair of umbilical hernia at the time of cholecystectomy. He, shortly after that, developed a recurrence, which has increased in size and become symptomatic. It is reducible. Indications, risks, benefits, alternatives of proceeding with robotic assisted herniorrhaphy with mesh insertion were explained extensively to the patient, including the risks of bleeding, infection, bowel injury, recurrent hernia, blood clot, pulmonary embolus, heart attack, anesthetic complications, need for further surgery or mesh removal. All of his questions were answered. Informed consent was obtained. PROCEDURE: Patient brought to the operating room, placed in the supine position. General anesthesia was induced. Olea catheter was inserted using sterile technique. A bilateral TAP block was performed by Dr. Dc. Patient was prepped and draped in the usual sterile fashion. He was flexed somewhat to aid port placement. A right subcostal incision was made with the scalpel and carried down through subcutaneous tissue using blunt dissection. Two 0 Vicryl stay sutures were placed in the fascia, which was then incised down through the various layers. The peritoneum was then entered. A Geovanna trocar was then inserted under direct visualization and secured with the stay sutures. The abdomen was insufflated with carbon dioxide to a pressure of 15 mm/Hg. There was noted to be no adhesions and hernia was reduced, but was wide mouthed. It was approximately 3 cm in length. Two 8 mm robotic ports were then placed; one in the lateral right mid abdomen and one in the right lower quadrant, both under direct visualization. The robot was then docked, targeted to the hernia. Bariatric port was placed through the Geovanna. The bipolar grasper was placed in the #2 arm and the monopolar scissors in the #4 arm. I then broke scrub and went to the console. The peritoneum was incised, just to the right of the midline, at the edge of the rectus sheath. It was then mobilized, along with the preperitoneal fat, down to the defect. The hernia sac and scar were mobilized from the defect. There was extensive scarring in that area. It could not be mobilized as a single piece due to the previous surgery. The hernia sac was completely removed from the defect. The scissors and grasper were then traded out for two needle drivers. It should be noted that a #1 V-Loc suture was placed into the abdomen in the falciform ligament, prior to docking the robot. This was then used to close the fascial defect, beginning inferiorly and running the suture cephalad and then back inferiorly again with good re- approximation of the defect. The scissors were then brought in to cut the suture, which was then brought out under direct visualization, through the Geovanna trocar. A 9 cm Symbotex mesh was then brought in with 2-0 V-Loc absorbable sutures. The mesh was unrolled over the repair site, had good coverage around the area. The coated was out, facing the bowel. The mesh was then sutured circumferentially using the 2-0 V-Loc absorbable suture. There was good hemostasis. Once this was complete, the hernia sac, which was not intact, was then excised using the scissors which were brought back in. All needles were then brought out under direct visualization through the Geovanna, along with the hernia sac, which was sent off to Pathology. There was good hemostasis. The abdomen was inspected and noted to be hemostatic with good re-approximation of the mesh to the abdominal wall. The needle charter driver was removed. The robot was undocked. I then scrubbed back into the field, examined the repair. Once again, there was noted to be good hemostasis, good approximation of the mesh to the abdominal wall. No other abnormalities. All ports sites were examined upon withdrawal of the ports. There was noted to be good hemostasis. The abdomen was then deflated. The right subcostal port site fascia was closed with a 0 Vicryl figure of eight suture. All port sites were infiltrated with the remaining Exparel solution. Incisions were then closed with 4-0 Monocryl subcuticular sutures and skin glue. Sterile dressings were applied as well as a pressure dressing to the umbilical area and an abdominal binder. Sponge and needle counts were correct x2 per nursing personnel. Patient tolerated procedure well, was extubated, Olea catheter was removed. He was sent to recovery room in good condition. CC: Reva Ritchie CNP [facility]
--- OUTSIDE RECORDS SUMMARY | 2024-01-17 06:27 | XMS_ITS | CCD ---
Author Organization [facility] CliniSyct Care Team Providers Care Assistant Chief Of Police Name Role Phone Liuz Jimenez Unavailable REVA SHANNON Admitting Unavailable SHIVA, [...] Consulting Unavailable DO Jaciel Echavarria Attending Provider [phone] Unavailable Primary Care Provider UnavailDafne ESCOTO Reva [...] Echavarria Attending Unavailable Jaciel Echavarria Admitting Unavailable aJciel BRANDT Attending Unavailable SHIVA, REVA S Referring Unavailable Jaciel BRANDT Attending Unavailable REVA SHANNON Referring Unavailable Lauren Brockhy Andrew Attending Unavailable Jaciel BRANDT Attending Unavailable Jaciel BRANDT Attending Unavailable Jaciel BRANDT Attending Unavailable Allergies Allergy Classification Reported Allergen(s) Allergy Type Date of Onset Reaction(s) Facility (1 source) No Known Medication Allergies; Translations: [No Known Medication Allergies] Propensity to adverse reactions (disorder) [facility] Repository Medications Current Medications Medication Drug [...] Team Attending Physician - ELAINE FRANCISCO, Jaciel bOando Primary Care Physician - REVA SHANNON CNP [...] you for choosing us for your care. [facility] Ambulatory Visit Summaryon 0 11-21-2023 Ambulatory Visit [...] you for choosing us for your care. [facility] Ambulatory Visit Summaryon 0 08-29-2023 Ambulatory Visit [...] FRANCISCO, Renate Morales Where: [facility] General Surgery Office/Clini c Noteon 08-29-2023 General [...] virus vaccine, inactivated 11/23/2022 Recorded SARS-CoV-2 (COVID-19) [id number] 12/14/2021 Recorded SARS-CoV-2 (COVID-19) mRNA BNT-162b2 vax 06/29/2021 Recorded SARS-CoV-2 (COVID-19) mRNA-1273 vaccine 01/06/2021 Recorded SARS-CoV-2 (COVID-19) mRNA-1273 vaccine 06/04/2020 Recorded SARS-CoV-2 (COVID-19) mRNA-1273 vaccine 05/07/2020 Recorded Normal [facility] Comment on above: Result Comment: Elec [...] of polyp/family history of colon cancer. Normal [facility] Pathology Noteon 08-20-2023 Pathology Note [id number]#1.00TIFF Normal [facility] Outside Colonoscopyon 2023 Outside Colonoscopy [id number]#1.00TIFF Normal [facility] Leonides 08-09-2023 L Specimen: [id number] R eceived: 08/10/23 [facility]: [id number] Spec Type: Surgical Subm Dr: Jaciel Brandt MD FACS Tissues: A Colon Biopsy (SIGMOID POLYP) Procedures: HE/2, Gross/Micro L4 Age/ Patient Sex Location Account Attending Physician Abigail Washington 77/M LABELL [id number] Jaciel Brandt MD FACS SPEC NUM: [id number] RECD: 08/10/23 STATUS: [facility] NUM: [id number] DAMARI: 08/09/[address]: Jaciel Brnadt MD FACS ENTERED: 08/10/23 [facility] DR: Gonzalez Lazaro SPEC TYPE: Surgical DEPT: [...] cm, entirely submitted in A1. CPT Codes 59430 -------- -------- Specimen: [id number] Received: 08/10/23 Status: [facility] Num: [id number] Spec Type: Surgical Subm Dr: Jaciel Brandt MD FACS Tissues: A Colon Biopsy (SIGMOID POLYP) Procedures: BENI/Herlinda, Gross/Micky L4 -------- Patient: Abigail Washington [id number] (Continued) -------- Signed (signature on file) Humberto Perkins MD 08/14/23 1556 Normal [facility] Insurance Correspondenceon 0 07-26-2023 Insurance Correspondence [id number]#1.00TIFF Normal [facility] ASPIRATE CULTUREon 4 Bacteria identified Aer cx Nom (Asp) GRAM STAIN 10 to 24 WHITE BLOOD CELLS/LPF 0 SQUAMOUS EPITHELIAL CELLS/LPF NO ORGANISMS SEEN CULTURE RESULTS NO GROWTH 3 DAYS Normal [place] Comment on above: Performed By: #### 5 97-5 #### [facility] ([id number]) [address] [place] [address], [address] [place] [address] COMPREHENSIVE METABOLIC PANE [facility] 07-20-2023 Albumin [Mass/Vol] 3.5 g/dL Normal 3.2-5.3 [facility] Comment on above: Performed By: #### C MP #### [facility] ([id number]) [address] [place] [address] 65753 ALP [Catalytic activity/Vol] 298 U/L High 39-130 [place] Comment on above: Performed By: #### C MP #### [facility] ([id number]) [address] [place] [address] 61860 ALT [Catalytic activity/Vol] 32 U/L Normal 0-40 [place] Comment on above: Performed By: #### C MP #### [facility] ([id number]) [address] [place] [address] 83619 Anion gap [Moles/Vol] 10 mmol/L Normal 5-15 [place] Comment on above: Performed By: #### C MP #### [facility] ([id number]) [address] [place] [address] 71939 AST [Catalytic activity/Vol] 36 U/L Normal 0-41 [place] Comment on above: Performed By: #### C MP #### [facility] ([id number]) [address] [place] [address] 06667 Bilirubin [Mass/Vol] 1.0 mg/dL Normal 0.3-1.2 [place] Comment on above: Performed By: #### C MP #### [facility] ([id number]) [address] [place] [address] 02860 Calcium [Mass/Vol] 8.8 mg/dL Normal 8.5-10.5 [facility] Comment on above: Performed By: #### C MP #### [facility] ([id number]) [address] [place] [address] 07857 Chloride [Moles/Vol] 101 mmol/L Normal 98-109 [place] Comment on above: Performed By: #### C MP #### [facility] ([id number]) [address] [place] [address] 18619 CO2 [Moles/Vol] 25 mmol/L Normal 22-32 [place] Comment on above: Performed By: #### C MP #### [facility] ([id number]) [address] [place] [address] 58363 Creatinine [Mass/Vol] 0.89 mg/dL Normal 0.70-1.20 [place] Comment on above: Result Comment: METH OD TRACEABLE TO IDMS STANDARD Performed By: #### C MP #### [facility] ([id number]) [address] [place] [address] 20750 GFR/1.73 sq M.predicted among non-blacks MDRD (S/P/Bld) [Vol rate/Area] 89 mL/min/{1.73_m2} Normal >59 [place] Comment on above: Result Comment: Reported eGFR is based on the CKD-EPI 2020 equation that does not use a race coefficient. Performed By: #### C MP #### [facility] ([id number]) [address] [place] [address] 78919 Glucose [Mass/Vol] 104 mg/dL High 65-99 [facility] Comment on above: Performed By: #### C MP #### [facility] ([id number]) [address] [place] [address] 37371 Potassium [Moles/Vol] 4.0 mmol/L Normal 3.5-5.0 [place] Comment on above: Performed By: #### C MP #### [facility] ([id number]) [address] [place] [address] 58944 Protein [Mass/Vol] 7.8 g/dL Normal 6.0-8.0 [facility] Comment on above: Performed By: #### C MP #### [facility] ([id number]) [address] [place] [address] 39170 Sodium [Moles/Vol] 136 mmol/L Normal 134-146 [facility] Comment on above: Performed By: #### C MP #### [facility] ([id number]) [address] [place] [address] 77479 Urea nitrogen [Mass/Vol] 17 mg/dL Normal 5-27 [place] Comment on above: Performed By: #### C MP #### [facility] ([id number]) [address] [place] [address] 60632 Cytologyon 07-20-2023 Cytology Normal [place] Comment on above: Result Comment: [facility] [address] [place] [address] Cytology Consultation Patient Name:ABIGAIL WASHINGTON:1945 (Age: 77)Gender:MTaken:07/20/2023eported:07/21/2023 11:52Physician(s):Zack Gibson M.D. ([phone])Copy To:Jaciel Echavarria D.O. Rec. #:[id number]: #[id number] Final Cytologic Diagnosis Bile leak fluid: No malignant cells identified. formerly [facility]/07/21/2023 Interpretation performed at [facility], [address] , [place] [address], License number: [id number].Electronically Signed Out By Jerrod Batista M.D. Clinical History None given. Gross Description Received was 1,600 mL of brown fluid unfixed labeled as Padmini, bile leak . CytoLyt added in lab. Specimen placed in formalin at 14:00 and had a total fixation time of 12 hours. Source of Specimen Bile leak fluid Cell block for Non-dampener (M), Level 2 H&E, Non VISUAL MERCHANDISING MANAGER ThinPrep Fee Code(s): 1; 97422, 96989 IR BILIARY DRAIN INTERNAL/EX T COMPon 07-20-2023 [...] in its inferior portion with a 10 Chadian pigtail drainage catheter, using trocar technique. A [...] Gibson MD on 07/20/2023 12:51 PM Normal [place] HEPATOBILIARY SYS IMAGING WO PHARMACOLOGIC AGENTon [...] Wan MD on 07/20/2023 7:35 AM Normal [place] PLATELET COUNT AND MPVon Platelet mean volume (Bld) [Entitic vol] 7.2 fL Normal 7-12 [place] Comment on above: Performed By: #### P LTCT, PINR #### [facility] ([id number]) [address] [place] [address] 57343 Platelets (Bld) [#/Vol] 247 10*3/uL Normal 150-450 [place] Comment on above: Performed By: #### P LTCT, PINR #### [facility] ([id number]) [address] [place] [address] 72748 PROTIME AND INRon 07-20-2023 INR Coag (PPP) [Relative time] 1.1 {INR} Normal 0.8-1.1 [place] Comment on above: Performed By: #### P LTCT, PINR #### [facility] ([id number]) [address] [place] [address] 20593 PT Coag (PPP) [Time] 12.8 s Normal 9.8-13.2 [place] Comment on above: Result Comment: NEW REFERENCE RANGE Performed By: #### P LTCT, PINR #### [facility] ([id number]) [address] [facility], [place] [address] Consent for Procedure/Surger yon 07-12-2023 Consent for Procedure/Surgery [id number]#1.00TIFF [facility] Ambulatory Visit Summaryon 0 07-11-2023 Ambulatory Visit [...] you for choosing us for your care. [facility] Facesheeton 07-11-2023 Facesheet [id number]#1.00TIFF [facility] Physician Referralon 024 Physician Referral [id number]#1.00TIFF [facility] Multiple labson 05-27-2023 [facility] Surgical Pathologyon 024 [facility] Leonides 05-24-2023 L Specimen: [id number] R eceived: 05/25/23 Status: [facility] Num: [id number] Spec Type: Surgical Subm Dr: Jaciel Echavarria DO Tissues: A Gallbladder (GALLBLADDER) Procedures: HE, Gross/Micro L3 Age/ Patient Sex Location Account Attending Physician Abigail Washington 77/M LABELL [id number] Jaciel Echavarria DO SPEC NUM: [id number] RECD: 05/25/23 STATUS: [facility] NUM: [id number] DAMARI: 05/24/[address]: Jaciel Echavarria DO [...] brown to green-de jesus and denuded. . Quality Assurance Intern sections are submitted in one cassette labeled A1. CPT Codes 12725 -------- -------- Specimen: [id number] Received: 05/25/23-1407 Status: [facility] Num: [id number] Spec Type: Surgical Subm Dr: Jaciel Echavarria DO Tissues: A Gallbladder (GALLBLADDER) Procedures: BENI, Obdulio/Micky L3 -------- Patient: Abigail Washington [id number] (Continued) -------- Signed (signature on file) Nikita Dunne MD 05/26/23 1220 Normal [facility] NM STRESS/REST MULTIon 06-06 NM STRESS/REST MULTI Patient: ABIGAIL WASHINGTON Exam Date: 06/06/2022 : 1945 Gender:M Ordering : REVA SHANNON [facility] Admission #: [id number] Family : Order #: [id number] CLICK HERE TO VIEW EXAM RADIOLOGY REPORT [...] M.D. on 06/07/2022 at 07:05 Normal [facility] INSULINon 05-19-2022 Insulin 11.6 uIU/mL Normal 2.6-24.9 [facility] Comment on above: Performed By: #### I NSULIN #### [facility] [address] [place] [address] Dr. Karely Perkins CBC AUTO DIFFon 05-18-2022 BASO # 0.0 103/ul Normal 0.0-0.1 [facility] Comment on above: Performed By: #### C BC #### [facility] [address] [place] [address] Dr. Karely Prekins Basophils/100 WBC (Bld) 0.6 % Normal 0.2-2.0 [facility] Comment on above: Performed By: #### C BC #### [facility] [address] [place] [address] Dr. Karely Perkins EO # 0.2 103/ul Normal 0.0-0.7 [facility] Comment on above: Performed By: #### C BC #### [facility] [address] [place] [address] Dr. Karely Perkins Eosinophils/100 WBC (Bld) 3.9 % Normal 0.9-7.0 [facility] Comment on above: Performed By: #### C BC #### [facility] [address] [place] [address] Dr. Karely Perkins Erythrocyte distribution width (RBC) [Ratio] 12.8 % Normal 11.0-15.0 [facility] Comment on above: Performed By: #### C BC #### [facility] [address] [place] [address] Dr. Karely Perkins Hematocrit (Bld) [Volume fraction] 48.4 % Normal 42.0-54.0 [facility] Comment on above: Performed By: #### C BC #### [facility] [address] [place] [address] Dr. Karely Perkins Hemoglobin (Bld) [Mass/Vol] 15.8 g/dL Normal 14.0-18.0 [facility] Comment on above: Performed By: #### C BC #### [facility] [address] [place] [address] Dr. Karely Perkins IG # 0.01 10e3/ul Normal 0.00-0.03 [facility] Comment on above: Performed By: #### C BC #### [facility] [address] [place] [address] Dr. Karely Perkins IG % 0.2 % Normal 0.0-0.5 [facility] Comment on above: Performed By: #### C BC #### [facility] [address] [place] [address] Dr. Karely Perkins LYMPH # 1.4 103/ul Normal 1.2-3.8 [facility] Comment on above: Performed By: #### C BC #### [facility] [address] [place] [address] Dr. Karely Perkins Lymphocytes/100 WBC (Bld) 28.5 % Normal 20.5-60.0 [facility] Comment on above: Performed By: #### C BC #### [facility] [address] [place] [address] Dr. Karely Perkins MANUAL DIFF REQ NO Normal [facility] Comment on above: Performed By: #### C BC #### [facility] [address] [place] [address] Dr. Karely Perkins MCH (RBC) [Entitic mass] 28.7 pg Normal 25.9-34.0 [facility] Comment on above: Performed By: #### C BC #### [facility] [address] [place] [address] Dr. Karely Perkins MCHC (RBC) [Mass/Vol] 32.6 g/dL Normal 29.9-35.2 [facility] Comment on above: Performed By: #### C BC #### [facility] [address] [place] [address] Dr. Karely Perkins MCV (RBC) [Entitic vol] 87.8 fL Normal 80.0-94.0 [facility] Comment on above: Performed By: #### C BC #### [facility] [address] [place] [address] Dr. Karely Perkins MONO # 0.5 103/ul Normal 0.3-0.8 [facility] Comment on above: Performed By: #### C BC #### [facility] [address] [place] [address] Dr. Karely Perkins Monocytes/100 WBC (Bld) 10.3 % Normal 1.7-12.0 [facility] Comment on above: Performed By: #### C BC #### [facility] [address] [place] [address] Dr. Karely Perkins NEUT # 2.7 103/ul Normal 1.4-6.5 [facility] Comment on above: Performed By: #### C BC #### [facility] [address] [place] [address] Dr. Karely Perkins Neutrophils/100 WBC (Bld) 56.5 % Normal 43.0-75.0 [facility] Comment on above: Performed By: #### C BC #### [facility] [address] [address] [address] Karely Perkins Platelet mean volume (Bld) [Entitic vol] 9.3 fL Critically low 9.5-13.5 [facility] Comment on above: Performed By: #### C BC #### [facility] [address] [place] [address] Dr. Karely Perkins PLT 184 103/ul Normal 150-450 [facility] Comment on above: Performed By: #### C BC #### [facility] [address] [place] [address] Dr. Karely Perkins RBC 5.51 106/ul Normal 4.70-6.10 [facility] Comment on above: Performed By: #### C BC #### [facility] [address] [place] [address] Dr. Karely Perkins WBC 4.9 103/ul Normal 4.0-11.0 [facility] Comment on above: Performed By: #### C BC #### [facility] [address] [place] [address] Dr. Karely Perkins GLYCOHEMOGLOBIN A1Con 2022 ADA RECOMMENDATION SEE BELOW Normal [facility] Comment on above: Result Comment: ADA RECOMMENDED LIMIT 4.0 - 6.0 ADA THERAPEUTIC TARGET < 7.0 ACTION SUGGESTED > 7.0 Performed By: #### A 1C #### [facility] [address] [place] [address] Dr. Karely Perkins Glucose [Mass/Vol] 120 mg/dL Normal [facility] Comment on above: Performed By: #### A 1C #### [facility] [address] [place] [address] Dr. Karely Perkins HbA1c (Bld) [Mass fraction] 5.8 % Normal 4.5-6.2 [facility] Comment on above: Performed By: #### A 1C #### [facility] [address] [place] [address] Dr. Karely Perkins LIPID PROFILEon 05-18-2022 CHOL-HDL RATIO NORM SEE BELOW Normal [facility] Comment on above: Result Comment: 3.3 - 4.4 LOW RISK 4.4 - 7.1 AVERAGE RISK 7.1 - 11.0 MODERATE RISK >11.0 HIGH RISK Performed By: #### C MP, LIPID #### [facility] [address] [address] [address] Karely Perkins Cholesterol [Mass/Vol] 169 mg/dL Normal <=200 [facility] Comment on above: Performed By: #### C MP, LIPID #### [facility] [address] [address] [address] Karely Perkins Cholesterol in HDL [Mass/Vol] 74 mg/dL Critically high 40-60 [facility] Comment on above: Performed By: #### C MP, LIPID #### [facility] [address] [place] [address] Dr. Karely Perkins Cholesterol in LDL [Mass/Vol] 80.6 mg/dL Normal [facility] Comment on above: Performed By: #### C MP, LIPID #### [facility] [address] [place] [address] Dr. Karely Perkins Cholesterol.total/C holesterol in HDL [Mass ratio] 2.3 {ratio} Normal [facility] Comment on above: Performed By: #### C MP, LIPID #### [facility] [address] [place] [address] Dr. Karely Perkins HDL NORMAL > or = 60 mg/dl - LO W CARDIOVASCULAR RISK <40 mg/dl - HIGH CARDIOVASCULAR RISK Normal [facility] Comment on above: Performed By: #### C MP, LIPID #### [facility] [address] [place] [address] Dr. Karely Perkins LDL CALC NORMAL SEE BELOW Normal [facility] Comment on above: Result Comment: <100 mg/dl OPTIMAL 100 - 129 mg/dl NEAR OR ABOVE OPTIMAL 130 - 159 mg/dl BORDERLINE HIGH 160 - 189 mg/dl HIGH >190 mg/dl VERY HIGH Performed By: #### C MP, LIPID #### [facility] [address] [place] [address] Dr. Karely Perkins Triglyceride [Mass/Vol] 72 mg/dL Normal <=150 [facility] Comment on above: Performed By: #### C MP, LIPID #### [facility] [address] [place] [address] Dr. Karely Perkins VLDL CALC 14.4 mg/dL Normal [facility] Comment on above: Performed By: #### C MP, LIPID #### [facility] [address] [place] [address] Dr. Karely Perkins PROF 14(COMP METB)on 023 Albumin [Mass/Vol] 3.7 g/dL Normal 3.4-5.0 [facility] Comment on above: Performed By: #### C MP, LIPID #### [facility] [address] [place] [address] Dr. Karely Perkins Albumin/Globulin [Mass ratio] 1.0 {ratio} Normal [facility] Comment on above: Performed By: #### C MP, LIPID #### [facility] [address] [place] [address] Dr. Karely Perkins ALP [Catalytic activity/Vol] 117 U/L Critically high 46-116 [facility] Comment on above: Performed By: #### C MP, LIPID #### [facility] [address] [place] [address] Dr. Karely Perkins ALT [Catalytic activity/Vol] 24 U/L Normal 16-63 [facility] Comment on above: Performed By: #### C MP, LIPID #### [facility] [address] [place] [address] Dr. Karely Perkins Anion gap [Moles/Vol] 9.4 mmol/L Normal [facility] Comment on above: Performed By: #### C MP, LIPID #### [facility] [address] [place] [address] Dr. Karely Perkins AST [Catalytic activity/Vol] 34 U/L Normal 15-37 [facility] Comment on above: Performed By: #### C MP, LIPID #### [facility] [address] [place] [address] Dr. Karely Perkins Bilirubin [Mass/Vol] 0.7 mg/dL Normal 0.2-1.0 [facility] Comment on above: Performed By: #### C MP, LIPID #### [facility] [address] [place] [address] Dr. Karely Perkins Calcium [Mass/Vol] 9.0 mg/dL Normal 8.5-10.1 [facility] Comment on above: Performed By: #### C MP, LIPID #### [facility] [address] [place] [address] Dr. Karely Perkins Chloride [Moles/Vol] 108 mmol/L Critically high 98-107 [facility] Comment on above: Performed By: #### C MP, LIPID #### [facility] [address] [place] [address] Dr. Karley Perkins CO2 [Moles/Vol] 30.7 mmol/L Normal 21.0-32.0 [facility] Comment on above: Performed By: #### C MP, LIPID #### [facility] [address] [place] [address] Dr. Karely Perkins Creatinine [Mass/Vol] 0.90 mg/dL Normal 0.70-1.30 [facility] Comment on above: Performed By: #### C MP, LIPID #### [facility] [address] [place] [address] Dr. Karely Perkins EGFR-AF SAO TOMEAN >60 Normal >=60 [facility] Comment on above: Performed By: #### C MP, LIPID #### [facility] [address] [place] [address] Dr. Karely Perkins EGFR-NON AF SAO TOMEAN >60 Normal >=60 [facility] Comment on above: Performed By: #### C MP, LIPID #### [facility] [address] [place] [address] Dr. Karely Perkins Globulin (S) [Mass/Vol] 3.6 g/dL Normal [facility] Comment on above: Performed By: #### C MP, LIPID #### [facility] [address] [place] [address] Dr. Karely Perkins Glucose [Mass/Vol] 109 mg/dL Critically high 74-106 [facility] Comment on above: Performed By: #### C MP, LIPID #### [facility] [address] [place] [address] Dr. Karely Perkins Potassium [Moles/Vol] 4.1 mmol/L Normal 3.5-5.1 [facility] Comment on above: Performed By: #### C MP, LIPID #### [facility] [address] [address] [address] Karely Perkins Protein [Mass/Vol] 7.3 g/dL Normal 6.4-8.2 [facility] Comment on above: Performed By: #### C MP, LIPID #### [facility] [address] [place] [address] Dr. Karely Perkins Sodium [Moles/Vol] 144 mmol/L Normal 136-145 [facility] Comment on above: Performed By: #### C MP, LIPID #### [facility] [address] [place] [address] Dr. Karely Perkins Urea nitrogen [Mass/Vol] 20.0 mg/dL Critically high 7.0-18.0 [facility] Comment on above: Performed By: #### C MP, LIPID #### [facility] [address] [place] [address] Dr. Karely Perkins Urea nitrogen/Creatinine [Mass ratio] 22.2 mg/mg Normal [facility] Comment on above: Performed By: #### C MP, LIPID #### [facility] [address] [place] [address] Dr. Karely Perkins US SCROTUMon 11-18-2021 US [...] by: DEEP HOYOS Date: 2021-11-18 12:10 Normal [facility] Vital Signs Date Time Vital Sign Value Performing Clinician Lucius keane 01-10-2024 13:49-0500 Blood Pressure Location Jaciel NILL [facility] 01-10-2024 13:49-0500 Diastolic blood pressure 94 mm[Hg] Jaciel NILL [facility] 01-10-2024 13:49-0500 Heart rate 72 /min Jaciel NILL [facility] 01-10-2024 13:49-0500 Respiratory rate 16 /min Jaciel NILL [facility] 01-10-2024 13:49-0500 Systolic blood pressure 146 mm[Hg] Jaciel NILL [facility] 07-11-2023 13:24-0400 Blood Pressure Location Jaciel NILL [facility] 07-11-2023 13:24-0400 Diastolic blood pressure 80 mm[Hg] Jaciel NILL [facility] 07-11-2023 13:24-0400 Heart rate 72 /min Jaciel NILL [facility] 07-11-2023 13:24-0400 Respiratory rate 16 /min Jaciel NILL [facility] 07-11-2023 13:24-0400 Systolic blood pressure 126 mm[Hg] Jaciel NILL [facility] 06-07-2023 11:36-0400 Body height 170.2 cm El Mccabe VITREO RETINAL SURGEON-SOCKET WELDER HELPER Work Phone: [facility] 06-07-2023 11:36-0400 Body mass index (BMI) [Ratio] 25.31 kg/m2 El Mccabe VITREO RETINAL SURGEON-SOCKET WELDER HELPER Work Phone: [facility] 06-07-2023 11:36-0400 Body weight 73.3 kg El Mccabe VITREO RETINAL SURGEON-SOCKET WELDER HELPER [facility] Phone: [facility] 06-07-2023 11:36-0400 Diastolic blood pressure 95 mm[Hg] El Mccabe VITREO RETINAL SURGEON-SOCKET WELDER HELPER Work Phone: [facility] 06-07-2023 11:36-0400 Heart rate 81 /min El Mccabe VITREO RETINAL SURGEON-SOCKET WELDER HELPER Work Phone: [facility] 06-07-2023 11:36-0400 Systolic blood pressure 178 mm[Hg] El Mccabe VITREO RETINAL SURGEON-SOCKET WELDER HELPER Work Phone: [facility] Encounters Encounter Date Encounter Type Care Provider Facility Start: 01-10-2024 End: 01-10-2024 ambulatory Jaciel BRANDT Facility:[facility] Start: 01-10-2024 End: 01-10-2024 [facility] Start: 11-21-2023 End: 11-21-2023 ambulatory Jaciel R NILL Facility:[facility] Start: 10-18-2023 ambulatory REVA Lamb y:[facility] Start: 08-29-2023 End: 08-29-2023 ambulatory Jaciel R GABINOL Facility:[facility] Start: 08-29-2023 End: 08-29-2023 Patient encounter procedure Jaciel R GABINOL [facility] Start: 08-09-2023 End: 08-09-2023 ambulatory Jaciel Lloydl [facility] Work Phone: Start: 08-09-2023 End: 08-09-2023 Departed Referred DO Jaciel Echavarria Work Phone: [facility] Start: 08-09-2023 End: 08-09-2023 ambulatory Jaciel Obando GABINOJeffry Facility:CD:[id number] Start: 07-20-2023 End: 07-20-2023 ambulatory [facility] Start: 07-20-2023 End: 07-20-2023 ambulatory JACIEL Yap ASHOK [place] Start: 07-11-2023 End: 07-11-2023 ambulatory [facility] Facility:[facility] Start: 07-11-2023 End: 07-11-2023 Patient encounter procedure Jaciel BRANDT [facility] Start: 06-19-2023 ambulatory Jaciel BRANDT Facility:[facility] Start: 06-16-2023 ambulatory Jaciel BRANDT Facility:[facility] [place] Start: 06-07-2023 End: 06-07-2023 ambulatory [facility] Start: 06-07-2023 End: 06-07-2023 Patient encounter procedure [facility] VITREO RETINAL SURGEON-SOCKET WELDER HELPER Work Phone: [facility] Comment on above: Status post laparosc opic cholecystectomy (Primary Dx); Status post umbilical hernia repair, follow-up exam Start: 05-31-2023 Orders Only Not In System Ref Prov [facility] Start: 05-25-2023 End: 05-25-2023 Departed Referred DO Jaciel Echavarria Work Phone: [facility] [place] [facility] Start: 05-25-2023 End: 05-25-2023 ambulatory Jaciel Echavarria [facility] Work Phone: Start: 06-06-2022 End: 06-07-2022 ambulatory REVA SHANNON Facility:[facility] Start: 05-18-2022 End: 05-19-2022 ambulatory REVA SHANNON Facility:[facility] Start: 11-18-2021 End: 11-19-2021 ambulatory REVA SHANNON Facility:[facility] Start: 05-07-2020 End: 05-07-2020 Patient encounter procedure Wendy Flood Work Phone: [facility] Work Phone: Procedures Date Procedure Procedure Detail Performing Clinician Start: 08-09-2023 Colonoscopy Jaciel BRANDT Start: 05-27-2023 MULTIPLE LABS Not In System Ref Prov Start: 05-25-2023 Level i surg pathology gross examination only Not In System Ref Prov Start: 05-18-2022 PSA screening REVA SHANNON Comment on above: Performed By: #### PSASC #### [facility] [address] [place] [address] Dr. Karely Perkins Start: 05-07-2020 Imm. 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 Work Phone: Repair of umbilical hernia Jesusita munsonmarly BRANDT Tonsillectomy Jaciel BRANDT Plan of Treatment Date Care Activity Detail Author Start: 06-06-2024 Adult BMI Screening Adult BMI Screening [facility] Start: 06-06-2024 Tobacco Screening Tobacco Screening [facility] Start: 11-05-2023 Influenza vaccination Influenza Vaccine [facility] Start: 06-04-2020 2nd Dose- COVID Vaccine [facility] Work Phone: Start: 08-23-2011 Fall Risk Screening Fall Risk Screening [facility] Start: 1996 Administration of varicella zoster vaccine Zoster (Shingles) Vaccine (1 of 2) [facility] Start: 1965 DTaP,Tdap and Td Vaccines (1 - Tdap) DTaP,Tdap and Td Vaccines (1 - Tdap) [facility] Start: 1964 Adult BMI Follow Up Plan Adult BMI Follow Up Plan [facility] Start: 1958 Depression Screening Depression Screening [facility] Start: 1945 Medicare Annual Wellness Visit Medicare Annual Wellness Visit [facility] Immunizations Immunization Date Immunization Notes Care Provider Fa cili 11-23-2022 influenza virus vaccine, unspecified formulation El Mccabe 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 No signs or symptoms of adverse reactions. Patient waited a minimum of 15 minutes. Payers Date Payer Category Payer Self-pay 2022 Medicare AETNA MEDICARE A ETNA MEDICARE PLAN (PPO) [id number] 2022-Present [phone] [address] [place] [address] [id number] 2011 Unknown 1 - Medicare FQHC CGS PPS [id number] 1959 Medicare [id number] 1959 Medicare [id number] 1959 Unknown [id number] [id number]99 9.5.10.6.3 1946 Unknown [id number] 2.16.840.1.136241.3.579.2.593 1946 Unknown [id number] 2.16.840.1.524767.3.579.2.593 1946 Unknown [id number] 2.16.840.1.436189.3.579.2.593 1946 Unknown [id number] 2.16.840.1.200616.3.579.2.1286 1946 Unknown [id number] 2.16.840.1.776236.3.579.2.1286 1946 Unknown [id number] 2.16.840.1.818888.3.579.2.1286 1946 Unknown [id number] 2.16.840.1.141649.3.579.2.1286 1946 Unknown [id number] 2.16.840.1.739429.3.579.2.128 1946 Unknown [id number] 2.16.840.1.063661.3.579.2.1286 1946 Unknown [id number] 2.16.840.1.117962.3.579.2.1286 1946 Unknown [id number] 2.16.840.1.802652.3.579.2.727 1946 Unknown [id number] 2.16.840.1.605985.3.579.2.727 1946 Unknown [id number] 2.16.840.1.617594.3.579.2.72 1946 Unknown [id number] 2.16.840.1.238346.3.579.2.727 1946 Unknown [id number] 2.16.840.1.471105.3.579.2.72 1946 Unknown [id number] 2.16.840.1.866941.3.579.2.727 Medicare Medicare Outpatient [id number] Unknown [facility] Claims [id number] Unknown [id number] 2.840.1.284894.3.579.2.531 Unknown [id number] 2.16840.1.544801.3.579.2.531 Social History Date Type Detail Facility Tobacco smoking status Unknown if ever sm oked [facility] Start: 1945 Sex Assigned At Male F [facility] Start: 08-15-2018 End: 06-07-2023 History of Social function [facility] Start: 08-15-2018 End: 06-07-2023 Childcare [facility] Childcare Unknown [facility] Start: 1945 Sex Assigned At Not on file P [facility] Start: 06-07-2023 End: 01-10-2024 Tobacco smoking status NHIS Ex-smoker [facility] End: 03-06-1983 History of tobacco use Current smoker [facility] End: 03-06-1983 History of tobacco use Cigarette Smoker [facility] Start: 06-07-2023 Tobacco use and exposure Smokeless tobacco non-user [facility] Start: 06-07-2023 Alcohol intake Current drinke r of alcohol (finding) [facility] Functional Status Date Assessment Result Facility 01-10-2024 Functional Status N/A [facility] [place] 07-11-2023 Functional Status N/A [facility] [place] Clinical Notes 06-07-2023 to 01-10-2024 JEVON Singh [...] biloma was present; area reportedly aspirated at [facility]; will obtain records; just noticed bulges recently, [...] Cholecystectomy, Excision o (more content not included)... [facility] Comment on above: Result Comment: Elec tronically Signed By: ELAINE FRANCISCO, Jaciel Hall\Date and Time Signed: 01/10/24 16:25 EST 01-10-2024 Evaluation + Plan note Diagnostic Tests PendingHepatic Function Panel 01/10/24Basic Metabolic Panel 01/10/24CBC w/ Auto Diff 01/10/24 [facility] General Surgery [place] 11-21-2023 Note General Surgery Offi ce/Clinic Note [...] required percutaneous drainage, which was done in [place]; no pain or skin changes, no N/V [...] Mother and Bro (more content not included)... [facility] Comment on above: Result Comment: Elec [...] virus vaccine, inactivated 11/23/2022 Recorded SARS-CoV-2 (COVID-19) [id number].[id number] 12/14/2021 Recorded SARS-CoV-2 (COVID-19) mRNA BNT-162b2 vax 06/29/2021 Recorded SARS-CoV-2 (COVID-19) mRNA-1273 vaccine 01/06/2021 Recorded SARS-CoV-2 (COVID-19) mRNA-1273 vaccine 06/04/2020 Recorded SARS-CoV-2 (COVID-19) mRNA-1273 vaccine 05/07/2020 Recorded [facility] Comment on above: Result Comment: Elec [...] Status post laparoscopic cholecystectomy [Z90.49] JEVON SINGH [facility] General Surgery [place] This note was created with the assistance of a speech recognition program. While intending to generate a timely document that accurately reflects the content of the visit, no guarantee can be provided that every grammatical or spelling mistake has been or will be identified or corrected. Thank you for your understanding. JEVON Singh 06/07/23 1150 documented in this encounter [facility] Evaluation + Plan note No data available for this section [facility] Evaluation + Plan note Future Appointments Appointment Date:10/18/2023 08:15:00 AM Scheduled Provider:Renate Brock MD Location:[facility] Appointment Type:URO New Patient [facility] Evaluation note No assessment information [facility] Work Phone: Evaluation note Diagnosis Status post laparoscopic cholecystectomy- Primary Other postprocedural status Status post umbilical hernia repair, follow-up exam Follow-up examination, following other surgery documented in this encounter [facility] Dis[facility] instructions No data available for this section [facility] InstructionsNot on filedocumented in this encounter [facility] SystemInstructionsNot on filedocumented in this encounter [facility] SystemProgress note No data available for this section [facility] Reason for Referral No Reason for Referral [...] content) DATE CREATED AUTHOR 06/11/2022 [facility] pital DATE CREATED AUTHOR AUTHOR'S ORGANIZ ATION 07/22/[address] [facility] DATE CREATED AUTHOR AUTHOR'S ORGANIZ ATION 08/06/2023 [facility] DATE CREATED AUTHOR AUTHOR'S ORGANIZ ATION 01/07/2024 [facility] DATE CREATED AUTHOR AUTHOR'S ORGANIZ ATION 01/12/2024 [facility] Care Teams (unrecognized sec tion and content) Team Status: Inactive Member Role Status Dates Jaciel Echavarria DO Attending Provider Active Start: May 25, 2023 End: May 25, 2023 Assistant Chief Of Police Relationship Specialty Start Date End Date Reva Shannon, VITREO RETINAL SURGEON-SOCKET WELDER HELPER [address] [facility] [place] [address] PCP - General [...] and umbilical hernia repair performed 05/24/23 at [facility] FOR RECORDS PERTAINING TO PATIENTS WHO ARE [...] BE BASED ON THE PRIMARY CLINICAL RECORDS. [facility] [employer] [facility]. provides no warranty or guarantee of the accuracy or completeness of information in this document.
[2024-01-17] MEDS: LACTATED RINGER'S SOLUTION 1,000 ML 50 ML IV ×2 (06:59→08:16)
[2024-01-17] MEDS: CEFAZOLIN SODIUM 2 GM/50 ML D5W PREMIX IV (07:23)
[2024-01-17] MEDS: BUPIVACAINE LIPOSOME/PF 266 MG/13.3 ML VIAL INJ (08:20)
[2024-01-17] MEDS: 0.9 % SODIUM CHLORIDE 10 ML 20 ML IV (08:20)
[2024-01-17] MEDS: BUPIVACAINE HCL 0.5% PF 50 MG/10 ML VIAL INJ (08:20)
[2024-01-17] MEDS: HYDROMORPHONE HCL 0.5 MG/0.5 ML SYRINGE IV ×2 (10:31→10:43)
[2024-01-17] MEDS: HYDROCODONE/ACET 5-325 MG TABLET 1 TAB PO (10:49)
[2024-01-17] MEDS: ERYTHROMYCIN OP OINT 0.5% 1 GM TUBE OP (12:04)
--- NOTE | 2024-01-17 12:18 | PC.NURSE ---
PT C/O RIGHT EYE IRRITATION. DR. PUGA APPLIED SOME EES BASE LUBRICANT
== END 2024-01-17 12:45 | disposition home or self-care (01) ==
PROVIDERS: PCP Nurse Practitioner Family; Visit Provider Surgery
PROC: (CPT 49615; principal; 2024-01-17 07:30)
DX: K42.9 Umbilical hernia without obstruction or gangrene (principal); Z90.49 Acquired absence of other specified parts of digestive tract; I10 Essential (primary) hypertension; E78.00 Pure hypercholesterolemia, unspecified; K21.9 Gastro-esophageal reflux disease without esophagitis; Z87.891 Personal history of nicotine dependence
CPT/HCPCS: 49615; 64488; 88302; C1781; J0665; J0690; J1100; J1171; J1885; J2250; J2405; J2704; J3010

== ENCOUNTER 2024-07-16 08:12 | Outpatient (OUT) | payer MEDICARE, SELFPAY ==
--- OUTSIDE RECORDS SUMMARY | 2024-07-16 08:29 | XMS_ITS | CCD ---
Author Organization [facility] Care Team Providers Care Backing In Machine Tender Name Role Phone Luiz Jimenez Unavailable REVA SHANNON Admitting Unavailable SHIVA, REVA Attending Unavailable MADHAVI, DR ZULEMA Obando Consulting Unavailable SHIVA, REVA Primary Care Unavailable SHIVA, REVA Consulting Unavailable SHIVA, REVA Attending Unavailable SHIVA, REVA Consulting Unavailable SHIVA, REVA Primary Care Unavailable SHIVA, REVA Admitting Unavailable SHIVA, REVA Primary Care Unavailable LINDSEY ., DR PAT Admitting Unavailable LINDSEY ., DR PAT Attending Unavailable HOY ., DR PAT Consulting Unavailable MADHAVI, DR ZULEMA Obando Consulting Unavailable DO Jaciel Echavarria Attending Provider [phone] REVA SHANNON Primary Care Physician LAKEISHA JUNG Attending Unavailable SHIVA, REVA S Referring Unavailable SHIVA, REVA S Primary Care Unavailable SHIVA, REVA S Referring Unavailable SHIVA, REVA S Primary Care Unavailable SHIVA, REVA S Referring Unavailable SHIVA, REVA S Primary Care Unavailable JACIEL ECHAVARRIA Attending Unavailable GRILLIS, JACIEL E Referring Unavailable SHIVA, REVA S Primary Care Unavailable GRILLIS, JACIEL E Attending Unavailable GRILLIS, JACIEL E Referring Unavailable SHIVA, REVA S Primary Care Unavailable Zack Gibson Referring Unavailable SHIVA, REVA S Primary Care Unavailable MD Jaciel Henry Attending Provider Jaciel Echavarria Admitting Unavailable Jaciel Echavarria Attending Unavailable Jaciel Henry R Admitting Unavailable NilJaciel wright Attending Unavailable Jaciel Henry Admitting Unavailable NilJaciel wright Attending Unavailable Gabinol Jaciel FRANCISCO Attending Provider SHIVA, REVA S Referring Unavailable Renate Brock Attending Unavailable NILL, Jaciel R Attending Unavailable SHIVA, REVA S Referring Unavailable NILL, Jaciel R Attending Unavailable NILL, Jaciel R Attending Unavailable NILL, Jaciel R Attending Unavailable NILL, Jaciel R Attending Unavailable NILL, Jaciel R Attending Unavailable NILL, Jaciel R Attending Unavailable NILL, Jaciel R Attending Unavailable Unavailable Primary Care Provider Unavailnatalya Shannon HOT DOG 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, Reva S Primary Care Provider Unavailable Primary Care Provider Unavailnatalya Shannon 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, Reva S Primary Care Provider [phone] DESIREE ROONEY Admitting Unavailable TAOMAXXDESIREE A Referring Unavailable TAO, DESIREE A Attending Unavailable TAO, DESIREE A Admitting Unavailable TAO, DESIREE A Referring Unavailable TAO, DESIREE A Attending Unavailable TAO, DESIREE A Referring Unavailable SHIVA, REVA S Primary Care Unavailable SHIVA, REVA S Primary Care Unavailable NANETTE SANTA Attending Unavaila ble SHIVA, REVA S Primary Care Unavailable TAO, DESIREE A Attending Unavailable TAO, DESIREE A Attending Unavailable DAVY GRAY Referring Unavailab le GRAY, DAVY WANG Referring Unavailab le TAO, DESIREE A Referring Unavailable SHIVA, REVA S Primary Care Unavailable Allergies Allergy Classification Reported Allergen(s) Allergy Type Date of Onset Reaction(s) Facility (1 source) No Known Medication Allergies; Translations: [No Known Medication Allergies] Propensity to adverse reactions (disorder) [facility] Repository Medications Current Medications Medication Drug Class(es) Dates Sig (Normalized) Sig (Original) gentamicin 3 mg/ml ophthalmic solution (1 source) Start: 05-23-2024 take 1 drop(s) into the eye(s) four times daily gentamicin (GENTAK) 0.3 % ophthalmic solution One drop in the OPERATIVE EYE only four times a day starting the day before surgery and for three days after 5 mL 05/23/2024 Active Start: 05-23-2024 take 1 drop(s) into the eye(s) four times daily gentamicin (GENTAK) 0.3 % ophthalmic solution One drop in the OPERATIVE EYE only four times a day starting the day before surgery and for three days after 5 mL 05/23/2024 Active ketorolac tromethamine 5 mg/ml ophthalmic solution (3 sources) Nonsteroidal Anti-inflammatory Drug, Cyclooxygenase Inhibitor Start: 05-01-2024 End: 05-23-2024 keTORolac (ACULAR) 0.5 % ophthalmic solution Use one drop in operative eye as directed by Dr. Rooney starting tomorrow. 5 mL 05/22/2024 05/23/2024 Discontinued (Course of therapy completed) naproxen sodium 220 mg oral tablet (12 sources) Nonsteroidal Anti-inflammatory Drug take 1 tablet by mouth every four hours as needed naproxen sodium (ANAPROX) 220 mg tablet Take 220 mg by mouth every 4 hours as needed (prn). Active ofloxacin 3 mg/ml ophthalmic solution (5 sources) Quinolone Antimicrobial Start: 04-02-2024 End: 07-01-2024 take 1 drop(s) into the eye(s) four times daily, then take 1 drop(s) into the eye(s) four times daily ofloxacin (OCUFLOX) 0.3 % ophthalmic solution 1 Drop four times daily. One drop in the OPERATIVE EYE only four times a day starting the day before surgery 10 mL 1 04/02/2024 05/23/2024 Discontinued (Course of therapy completed) omeprazole 20 mg delayed release oral tablet (9 sources) Proton Pump Inhibitor Start: 11-21-2023 Omeprazole Magnesium (PRILOSEC OTC) 20 mg tablet Take 20 mg by mouth. 11/21/2023 Active Start: 11-21-2023 take 20 mg by mouth once daily Prilosec OTC 20 mg, Oral, Daily, Refills(s) 0 Start Date: 11/21/23 Status: Ordered prednisoLONE acetate 10 mg/ml ophthalmic suspension (3 sources) Corticosteroid Start: 05-01-2024 prednisoLONE a cetate (PRED FORTE) 1 % ophthalmic suspension Use one drop in operative eye as directed by Dr. Rooney starting tomorrow. 05/22/2024 Active simvastatin 20 mg oral tablet (18 sources) HMG-CoA Reductase Inhibitor Start: 06-28-2023 simvastatin (ZOCOR) 20 mg tablet Take 20 mg by mouth. 06/28/2023 Active take 1 tablet by mouth in the mo rning simvastatin (ZOCOR) 20 mg tablet Take 1 tablet (20 mg total) by mouth in the morning. 0 Active Problems Active Problems Problem Classification Problem Date Documented Da berry Episodic/Chronic Abdominal hernia (8 sources) Umbilical hernia; Translations: [Umbilical hernia without obstruction or gangrene] Onset: 4 Episodic Abdominal pain (4 sources) Right upper quadrant pain; Translations: [Right upper quadrant pain] Onset: 4 Episodic Anxiety disorders (6 sources) Anxiety 06-28-2023 Chronic Cataract (20 sources) Senile combined form cataract of right eye; Translations: [Combined forms of age-related cataract, right eye] Onset: 5 Resolved: 5 03-29-2024 Chronic Complications of surgical procedures or medical care (4 sources) Complication of procedure; Translations: [Other complications of procedures, not elsewhere classified, initial encounter] Onset: 4 Episodic Diabetes mellitus without complication (4 sources) Hyperglycemia, unspecified; Translations: [HYPERGLYCEMIA UNSPECIFIED] Onset: 3 Episodic Diseases of white blood cells (5 sources) Leukocytosis 08-23-2023 Chronic Disorders of lipid metabolism (18 sources) Hyperlipidemia, unspecified; Translations: [Hyperlipidemia] Onset: 3 06-28-2023 Chronic Diverticulosis and diverticulitis (10 sources) Diverticulosis of sigmoid colon; Translations: [Diverticular disease] 06-28-2023 Chronic Esophageal disorders (5 sources) Gastroesophageal reflux disease without esophagitis; Translations: [Gastro-esophageal reflux disease without esophagitis] Onset: 5 04-26-2024 Chronic Essential hypertension (5 sources) Essential hypertension 08-23-2023 Chronic Glaucoma (7 sources) Narrow angle; 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, bilateral] Onset: 5 03-29-2024 Chronic Immunizations and screening for infectious disease (1 source) Encounter for immunization; Translations: [Encounter For Immunization] Onset: 1 Episodic Nonspecific chest pain (4 sources) Other chest pain; Translations: [OTHER CHEST PAIN] Onset: 3 Episodic Other aftercare (1 source) Encounter for follow-up examination after completed treatment for conditions other than malignant neoplasm; Translations: [Encounter for follow-up examination after completed treatment for conditions other than malignant neoplasm] Onset: 4 Episodic Other and unspecified benign neoplasm (6 sources) Benign neoplasm of descending colon; Translations: [Benign neoplasm of descending colon] Onset: 4 Episodic Other and unspecified benign neoplasm (4 sources) History of polyp of colon 11-15-2023 Episodic Other eye disorders (8 sources) Fourth nerve palsy; 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, left eye] Onset: 5 04-02-2024 Episodic Other gastrointestinal disorders (1 source) Abnormal feces; Translations: [Other fecal abnormalities] Onset: 4 Episodic Other gastrointestinal disorders (1 source) Disorder of peritoneum; Translations: [Other specified disorders of peritoneum] Onset: 4 Episodic Other liver diseases (5 sources) Lesion of liver 08-23-2023 Chronic Other nutritional; endocrine; and metabolic disorders (6 sources) Overweight 06-28-2023 Episodic Other nutritional; endocrine; and metabolic disorders (6 sources) Overweight in adulthood with body mass index of 25 or more but less than 30 07-11-2023 Episodic Other screening for suspected conditions (not mental disorders or infectious disease) (11 sources) Encounter for screening for malignant neoplasm of prostate; Translations: [Stool DNA-based colorectal cancer screening positive] Onset: 3 06-28-2023 Episodic Residual codes; unclassified (1 source) Pain, unspecified; Translations: [Pain, unspecified] Onset: 4 Episodic Residual codes; unclassified (2 sources) Acquired absence of other specified parts of digestive tract; Translations: [Acquired absence of other specified parts of digestive tract] Onset: 4 Episodic Unclassified (1 source) Post-op Onset: 4 Past or Other Problems Problem Classification Problem Date Documented Da te Episodic/Chronic Other aftercare (1 source) History of repair of umbilical hernia; Translations: [Encounter for follow-up examination after completed treatment for conditions other than malignant neoplasm] 06-06-2023 Episodic Other diseases of veins and lymphatics (4 sources) Scrotal varices; Translations: [SCROTAL VARICES] Onset: 11-18-2021 Episodic Results Test Name Value Interpretation Reference Range Facility ANES POSTPROC EVALon 025 ANES POSTPROC EVAL HNO ID: [id number] Author: DAVID ALLISON MD Service: Anesthesiology Author Type: Anesthesiologist Type: Anesthesia Postprocedure Evaluation Filed: 05/22/2024 14:10 Note Text: POST ANESTHESIA EVALUATION NOTE : 1945 Procedure Summary Date: 05/22/24 Room / Location: [address] Anesthesia Start: 1131 Anesthesia Stop: 1159 Procedures: PHACOEMULSIFICATION CATARACT IMPLANT INTRAOCULAR LENS W/O ENDOSCOPIC CYCLOPHOTOCOAGULATION (Left: Eye) OPHTHALMIC BIOMETRY BY PARTIAL COHERENCE INTERFEROMETRY W/INTRAOCULAR LENS POWER CALCULATION (Left: Eye) Diagnosis: Combined 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 (Combined 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 [H25.812]) Surgeons: Desiree Rooney MD Responsible Provider: David Allison MD Anesthesia Type: MAC ASA Status: 2 Anesthesia Type: MAC Last Vitals Vitals Value Taken Time BP 155/92 05/22/24 1200 Temp 36.6 ?C (97.9 ?F) 05/22/24 1158 Pulse 70 05/22/24 1200 Resp 14 05/22/24 1200 SpO2 95 % 05/22/24 1200 Post Anesthesia Patient Status Patient Evaluation: PACU. PACU/ICU Patient Condition: stable. Anticipated Disposition: phase 2 then home. Neurological Status: aware and responsive. Pulmonary Status: breathing comfortably on room air Airway Control: returned to baseline unsupported. Cardiovascular Status: stable. Pain Management: clinically adequate Postoperative Hydration: acceptable. Intraoperative Events: no significant anesthesia events Post Operative Nausea/Vomiting Status: no significant post operative nausea or vomiting Recommendation: continue current plan of care. Anesthesia Observations No Documentation SIGNATURE: David Allison MD PATIENT NAME: Abigail Washington DATE: May 22, 2024 TIME: 2:09 PM CSN: [id number] Normal [facility] ANES PRE-OPon 05-22-2024 ANES PRE-OP HNO ID: [id number] Author: DAVID ALLISON MD Service: Anesthesiology Author Type: Anesthesiologist Type: Anesthesia Preprocedure Evaluation Filed: 05/22/2024 10:59 Note Text: ANESTHESIOLOGY DAY OF SURGERY NOTE : 1945 Procedure Information Date/Time: 05/22/24 1050 Procedures: PHACOEMULSIFICATION CATARACT IMPLANT INTRAOCULAR LENS W/O ENDOSCOPIC CYCLOPHOTOCOAGULATION (Left: Eye) OPHTHALMIC BIOMETRY BY PARTIAL COHERENCE INTERFEROMETRY W/INTRAOCULAR LENS POWER CALCULATION (Left: Eye) Location: [address] Surgeons: Desiree Rooney MD Estimated body mass index is 25.55 kg/m? as calculated from the following: Height as of 04/26/24: 170.2 cm (5' 7 ). Weight as of 04/26/24: 74 kg (163 lb 2.3 oz). Most recent hematocrit and potassium results: No results found for this basename: HCT,HEMATOCRIT,K,POTASSIUM Relevant Problems GI (+) GERD (gastroesophageal reflux disease) I - PHYSICAL EVALUATION AIRWAY Patient intubated: No. Tracheostomy tube not present Mallampati: II. TM distance: >3 FB. Neck ROM: full ROM without neurological symptoms. Mouth opening: adequate. Short neck: no. Thick neck: no Pitts present: yes DENTAL Dentures, upper: complete. Dentures, lower: complete. Additional exam findings: no II - ANESTHESIA PLAN ASA Score: 2 Anesthetic Plan: MAC The patient is not a current smoker. NPO Status: adequate Beta Philip Monitoring Plan Monitoring plan: standard ASA. Post Procedure Analgesic Plan Postoperative analgesic plan: multimodal analgesia. Informed Consent Anesthetic risks, benefits, alternatives, personnel and consent discussed: yes. Patient / Responsible Democrat agrees to proceed: yes Patient / Surrogate agrees to blood products: blood products not planned Significant changes in the patient condition since the History and Physical, not otherwise documented in primary service progress note: no. Discussed the possibility of lip / dental damage: yes Vitals Value Taken Time BP 173/96 05/22/24 1044 Pulse 66 05/22/24 1044 Resp 16 05/22/24 1044 Temp 36.6 ?C (97.9 ?F) 05/22/24 1044 SpO2 97 % 05/22/24 1044 Facility-Administered Medications as of 05/22/2024 Medication Dose Route Frequency - [COMPLETED] tetracaine (PF) 0.5 % 2 Drop (OPTICAINE) 2 Drop LEFT EYE EVERY 5 MINUTES X 3 DOSES - [COMPLETED] PHENYLephrine 2.5 % 1 Drop (AK-DILATE, COLLIN-SYNEPHRINE) 1 Drop LEFT EYE EVERY 5 MINUTES X 3 DOSES - [COMPLETED] tropicamide 1 % 1 Drop (MYDRIACYL) 1 Drop LEFT EYE EVERY 5 MINUTES X 3 DOSES - cyclopentolate 1 % 1 Drop (CYCLOGYL) 1 Drop LEFT EYE Pre-Op PRN - [COMPLETED] keTORolac 0.5 % 1 Drop (ACULAR) 1 Drop LEFT EYE q 5 MIN - [COMPLETED] Povidone-Iodine 5 % 30 mL ophth soln (BETADINE) 30 mL LEFT EYE ONCE - [COMPLETED] balanced salt 15 mL (BSS) 15 mL LEFT EYE ONCE - [COMPLETED] tetracaine (PF) 0.5 % 2 Drop (OPTICAINE) 2 Drop RIGHT EYE EVERY 5 MINUTES X 3 DOSES - [COMPLETED] PHENYLephrine 2.5 % 1 Drop (AK-DILATE, COLLIN-SYNEPHRINE) 1 Drop RIGHT EYE EVERY 5 MINUTES X 3 DOSES - [COMPLETED] tropicamide 1 % 1 Drop (MYDRIACYL) 1 Drop RIGHT EYE EVERY 5 MINUTES X 3 DOSES - [COMPLETED] keTORolac 0.5 % 1 Drop (ACULAR) 1 Drop RIGHT EYE q 5 MIN - [COMPLETED] Povidone-Iodine 5 % 30 mL ophth soln (BETADINE) 30 mL RIGHT EYE ONCE - [COMPLETED] balanced salt 15 mL (BSS) 15 mL RIGHT EYE ONCE Outpatient Medications as of 05/22/2024 Medication Sig - prednisoLONE acetate (PRED FORTE) 1 % ophthalmic suspension Use one drop in operative eye as directed by Dr. Rooney starting tomorrow. - keTORolac (ACULAR) 0.5 % ophthalmic solution Use one drop in operative eye as directed by Dr. Rooney starting tomorrow. - simvastatin (ZOCOR) 20 mg tablet Take 20 mg by mouth. - Omeprazole Magnesium (PRILOSEC OTC) 20 mg tablet Take 20 mg by mouth. I have interviewed and examined the patient. I have reviewed the medical record and/or the pre-anesthesia evaluation, pertinent labs, and test results. This contains updated information obtained within 48 hours of Surgery/Procedure. SIGNATURE: David Allison MD PATIENT NAME: Abigail Washington DATE: May 22, 2024 TIME: 10:58 AM CSN: [id number] Normal [facility] OPERATIVE NOon 05-22-2024 OPERATIVE NO HNO ID: [id number] Author: DESIREE ROONEY MD Service: Ophthalmology Author Type: Physician Type: Operative Report Filed: 07/10/2024 08:07 Note Text: OPERATIVE/PROCEDURE REPORT LOG ID: [id number] Surgery/Procedure Date: 05/22/2024 Incision/Procedure Start Time: 11:46 AM Incision Close/Procedure End Time: 11:53 AM Surgeon(s)/Proceduralist(s) and Administrative Program Specialist(s): Surgeons and Role: * Desiree Rooney MD - Primary Administrative Program Specialist: None. Any nurse listed as assisting or otherwise participating in this case has performed only the duties of a circulating nurse. Anesthesia: Monitored Anesthesia Care Pre-Op/Pre-Procedure Diagnosis: Pre-Op Diagnosis Codes: * Combined 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 [H25.812] Post-Op/Post-Procedure Diagnosis: Post-Op Diagnosis Codes: * Combined 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 [H25.812] Procedure(s): Procedure(s) (LRB): PHACOEMULSIFICATION CATARACT IMPLANT INTRAOCULAR LENS W/O ENDOSCOPIC CYCLOPHOTOCOAGULATION (Left) OPHTHALMIC BIOMETRY BY PARTIAL COHERENCE INTERFEROMETRY W/INTRAOCULAR LENS POWER CALCULATION (Left) Procedure Details: The patient was brought to the operating room and placed in the supine position on the operating table in the usual fashion. An IV was in place, as well as EKG, and BP monitoring. Nasal oxygen was administered. A Time Out was conducted confirming the correct patient, correct eye, correct surgery, correct implant and all allergies. The [facility] Lens verification Policy was meticulously followed as previously approved with both an initial lens verification by myself in the presence of the Nurse Coordinator and the predictive maintenance technician and a secondary full lens verification as part of the Time Out, with patient identity, laterality, and lens choice confirmed against the source document by myself, the Conduit Cleaner Nurse, and the predictive maintenance technician. Topical lidocaine gel 2% was placed in a small ribbon in the lower cul-de-sac. The patient was prepped and draped in the usual sterile manner and a wire lid speculum was used to keep the eyelids open. A scleral groove was created at the superotemporal limbus and a keratome blade was used to tunnel forward from the groove approximately 1 mm into clear cornea before the anterior chamber was entered. The blade was used to rice the central anterior lens capsule. After the anterior chamber was filled with viscoelastic, the Utrata forceps were used to create a continuous curvilinear capsulorrhexis of approximately 5.5 mm round. Gentle hydrodissection was accomplished using preservative-free lidocaine on a 27-guage cannula. Using the Qoof phacoemulsification unit with the Kleo curved tip, the anterior chamber was entered and the nucleus was removed while it was in the bag. The epinuclear ring was dissected into several segments, then removed using the phacoemulsification unit set to the desired aspiration flow rate and ultrasound parameters. Great care was taken not to violate the posterior capsule. The phaco CDE was 25.06. The irrigation/aspiration (I and A) device was then used to remove residual cortex. At the conclusion of the I and A, the posterior capsule was polished and then noted to be clean and intact. The lens capsule was filled with viscoelastic and the foldable 19.5 diopter lens was inserted atraumatically into the capsular bag (see implants below for lens information). The lens was observed to center nicely. The I and A device was again used to remove residual viscoelastic. The wound was tested and found to be watertight. The speculum was removed. Drops of ketorolac (if not allergic), timolol and prednisolone were instilled. A shield was applied and the patient left the operating room in stable condition without complications. Estimated Blood Loss: 0 ml Specimens: None. I have reviewed the images and report from the Ophthalmic Biometry May 22, 2024 to determine the Intraocular lens Power Calculation for the IOL lens implant. I have interpreted and agree with the calculation of the IOL as listed below. Implants: * No implants in log * Drains: None. Complications: None. I performed the entire procedure. Comanage with Dr. Gray; [facility] POD #1. SIGNATURE: Desiree Rooney MD PATIENT NAME: Abigail Washington DATE: May 22, 2024 TIME: 11:54 AM PAGER/CONTACT #: [facility] ANES POSTPROC EVALon 025 ANES POSTPROC EVAL HNO ID: [id number] Author: MARCIANO ANGEL II, DO Service: Anesthesiology Author Type: Anesthesiologist Type: Anesthesia Postprocedure Evaluation Filed: 05/01/2024 12:59 Note Text: POST ANESTHESIA EVALUATION NOTE : 1945 Procedure Summary Date: 05/01/24 Room / Location: [address] Anesthesia Start: 1127 Anesthesia Stop: 1144 Procedures: PHACOEMULSIFICATION CATARACT IMPLANT INTRAOCULAR LENS W/O ENDOSCOPIC CYCLOPHOTOCOAGULATION (Right: Eye) OPHTHALMIC BIOMETRY BY PARTIAL COHERENCE INTERFEROMETRY W/INTRAOCULAR LENS POWER CALCULATION (Right: Eye) Diagnosis: Combined forms of age-related cataract of right eye (Combined forms of age-related cataract of right eye [H25.811]) Surgeons: Desiree Rooney MD Responsible Provider: Marciano Angel II, DO Anesthesia Type: MAC ASA Status: 3 Anesthesia Type: MAC Last Vitals Vitals Value Taken Time BP 141/82 05/01/24 1147 Temp 36.3 ?C (97.3 ?F) 05/01/24 1145 HR SpO2 65 05/01/24 1147 Resp 16 05/01/24 1147 SpO2 97 % 05/01/24 1147 Post Anesthesia Patient Status Patient Evaluation: PACU. PACU/ICU Patient Condition: stable. Neurological Status: aware and responsive. Pulmonary Status: breathing comfortably on room air Airway Control: returned to baseline unsupported. Cardiovascular Status: stable. Pain Management: clinically adequate Postoperative Hydration: acceptable. Intraoperative Events: no significant anesthesia events Post Operative Nausea/Vomiting Status: no significant post operative nausea or vomiting Recommendation: continue current plan of care. Anesthesia Observations No Documentation SIGNATURE: Marciano Angel II, DO PATIENT NAME: Abigail Washington DATE: May 01, 2024 TIME: 12:59 PM CSN: [id number] Normal [facility] ANES PRE-OPon 05-01-2024 ANES PRE-OP HNO ID: [id number] Author: MARCIANO ANGEL II, DO Service: Anesthesiology Author Type: Anesthesiologist Type: Anesthesia Preprocedure Evaluation Filed: 05/01/2024 10:46 Note Text: ANESTHESIOLOGY DAY OF SURGERY NOTE : 1945 Procedure Information Date/Time: 05/01/24 1100 Procedures: PHACOEMULSIFICATION CATARACT IMPLANT INTRAOCULAR LENS W/O ENDOSCOPIC CYCLOPHOTOCOAGULATION (Right: Eye) OPHTHALMIC BIOMETRY BY PARTIAL COHERENCE INTERFEROMETRY W/INTRAOCULAR LENS POWER CALCULATION (Right: Eye) Location: [address] [place] Surgeons: Desiree Rooney MD Estimated body mass index is 25.55 kg/m? as calculated from the following: Height as of 04/26/24: 170.2 cm (5' 7 ). Weight as of 04/26/24: 74 kg (163 lb 2.3 oz). Most recent hematocrit and potassium results: No results found for this basename: HCT,HEMATOCRIT,K,POTASSIUM Relevant Problems GI (+) GERD (gastroesophageal reflux disease) I - PHYSICAL EVALUATION AIRWAY Patient intubated: No. Tracheostomy tube not present Mallampati: III. TM distance: >3 FB. Neck ROM: limited extension. Mouth opening: adequate. Short neck: no. Thick neck: no Pitts present: yes DENTAL Dentures, upper: complete. Dentures, lower: complete. Additional exam findings: yes. CARDIOVASCULAR Rhythm: regular Rate: normal PULMONARY Breath sounds clear to auscultation. II - ANESTHESIA PLAN ASA Score: 3 Anesthetic Plan: MAC The patient is not a current smoker. NPO Status: adequate Beta Philip Monitoring Plan Monitoring plan: standard ASA. Post Procedure Analgesic Plan Postoperative analgesic plan: parenteral or oral opioids. Informed Consent Anesthetic risks, benefits, alternatives, personnel and consent discussed: yes. Patient / Responsible Democrat agrees to proceed: yes Patient / Surrogate agrees to blood products: Yes Vitals Value Taken Time BP 145/80 05/01/24 1025 Pulse 60 05/01/24 1025 Resp 16 05/01/24 1025 Temp 36.6 ?C (97.9 ?F) 05/01/24 1025 SpO2 97 % 05/01/24 1025 Facility-Administered Medications as of 05/01/2024 Medication Dose Route Frequency - [COMPLETED] tetracaine (PF) 0.5 % 2 Drop (OPTICAINE) 2 Drop RIGHT EYE EVERY 5 MINUTES X 3 DOSES - [COMPLETED] PHENYLephrine 2.5 % 1 Drop (AK-DILATE, COLLIN-SYNEPHRINE) 1 Drop RIGHT EYE EVERY 5 MINUTES X 3 DOSES - [COMPLETED] tropicamide 1 % 1 Drop (MYDRIACYL) 1 Drop RIGHT EYE EVERY 5 MINUTES X 3 DOSES - cyclopentolate 1 % 1 Drop (CYCLOGYL) 1 Drop RIGHT EYE Pre-Op PRN - [COMPLETED] keTORolac 0.5 % 1 Drop (ACULAR) 1 Drop RIGHT EYE q 5 MIN - [COMPLETED] Povidone-Iodine 5 % 30 mL ophth soln (BETADINE) 30 mL RIGHT EYE ONCE - [COMPLETED] balanced salt 15 mL (BSS) 15 mL RIGHT EYE ONCE Outpatient Medications as of 05/01/2024 Medication Sig - simvastatin (ZOCOR) 20 mg tablet Take 20 mg by mouth. - Omeprazole Magnesium (PRILOSEC OTC) 20 mg tablet Take 20 mg by mouth. I have interviewed and examined the patient. I have reviewed the medical record and/or the pre-anesthesia evaluation, pertinent labs, and test results. This contains updated information obtained within 48 hours of Surgery/Procedure. SIGNATURE: Marciano Angel II, DO PATIENT NAME: Abigail Washington DATE: May 01, 2024 TIME: 10:40 AM CSN: [id number] [facility] OPERATIVE NOon 05-01-2024 OPERATIVE NO HNO ID: [id number] Author: DESIREE ROONEY MD Service: Ophthalmology Author Type: Physician Type: Operative Report Filed: 05/01/2024 11:43 Note Text: OPERATIVE/PROCEDURE REPORT LOG ID: [id number] Surgery/Procedure Date: 05/01/2024 Incision/Procedure Start Time: 11:35 AM Incision Close/Procedure End Time: 11:41 AM Surgeon(s)/Proceduralist(s) and Administrative Program Specialist(s): Surgeons and Role: * Desiree Rooney MD - Primary Administrative Program Specialist: None. Any nurse listed as assisting or otherwise participating in this case has performed only the duties of a circulating nurse. Anesthesia: Monitored Anesthesia Care Pre-Op/Pre-Procedure Diagnosis: Pre-Op Diagnosis Codes: * Combined forms of age-related cataract of right eye [H25.811] Post-Op/Post-Procedure Diagnosis: Post-Op Diagnosis Codes: * Combined forms of age-related cataract of right eye [H25.811] Procedure(s): Procedure(s) (LRB): PHACOEMULSIFICATION CATARACT IMPLANT INTRAOCULAR LENS W/O ENDOSCOPIC CYCLOPHOTOCOAGULATION (Right) OPHTHALMIC BIOMETRY BY PARTIAL COHERENCE INTERFEROMETRY W/INTRAOCULAR LENS POWER CALCULATION (Right) Procedure Details: The patient was brought to the operating room and placed in the supine position on the operating table in the usual fashion. An IV was in place, as well as EKG, and BP monitoring. Nasal oxygen was administered. A Time Out was conducted confirming the correct patient, correct eye, correct surgery, correct implant and all allergies. The [facility] Lens verification Policy was meticulously followed as previously approved with both an initial lens verification by myself in the presence of the Nurse Coordinator and the predictive maintenance technician and a secondary full lens verification as part of the Time Out, with patient identity, laterality, and lens choice confirmed against the source document by myself, the Conduit Cleaner Nurse, and the predictive maintenance technician. Topical lidocaine gel 2% was placed in a small ribbon in the lower cul-de-sac. The patient was prepped and draped in the usual sterile manner and a wire lid speculum was used to keep the eyelids open. A scleral groove was created at the superotemporal limbus and a keratome blade was used to tunnel forward from the groove approximately 1 mm into clear cornea before the anterior chamber was entered. The blade was used to rice the central anterior lens capsule. After the anterior chamber was filled with viscoelastic, the Utrata forceps were used to create a continuous curvilinear capsulorrhexis of approximately 5.5 mm round. Gentle hydrodissection was accomplished using preservative-free lidocaine on a 27-guage cannula. Using the Suleiman phacoemulsification unit with the Tuolar.comman curved tip, the anterior chamber was entered and the nucleus was removed while it was in the bag. The epinuclear ring was dissected into several segments, then removed using the phacoemulsification unit set to the desired aspiration flow rate and ultrasound parameters. Great care was taken not to violate the posterior capsule. The phaco CDE was 30.82. The irrigation/aspiration (I and A) device was then used to remove residual cortex. At the conclusion of the I and A, the posterior capsule was polished and then noted to be clean and intact. The lens capsule was filled with viscoelastic and the foldable 19.0 diopter lens was inserted atraumatically into the capsular bag (see implants below for lens information). The lens was observed to center nicely. The I and A device was again used to remove residual viscoelastic. Intracameral Moxifloxacin 0.1 cc was injected. The wound was tested and found to be watertight. The speculum was removed. Drops of ketorolac (if not allergic), timolol and prednisolone were instilled. A shield was applied and the patient left the operating room in stable condition without complications. Estimated Blood Loss: 0 ml Specimens: None. I have reviewed the images and report from the Ophthalmic Biometry May 01, 2024 to determine the Intraocular lens Power Calculation for the IOL lens implant. I have interpreted and agree with the calculation of the IOL as listed below. Implants: Implant Name Type Inv. Item Serial No. Sock Liner Lot No. LRB No. Used Action Model No. [id number] [employer] - [id number] Intraocular Lens [id number] [employer] [id number] [employer] Right 1 Implanted [id number] Drains: None. Complications: None. I performed the entire procedure. Comanage with Dr. Gray; [facility] POD #1. SIGNATURE: Desiree Rooney MD PATIENT NAME: Abigail Washington DATE: May 01, 2024 TIME: 11:43 AM PAGER/CONTACT #: [facility] ASCAN ONLY - DIAGNOSTIC OU ( BOTH EYES)on 04-26-2024 [facility] Radiology Study observation (narrative) [facility] HISTORY PHYSICALon HISTORY PHYSICAL HNO ID: [id number] Author: TYLER BELTRAN APRN.CNP Service: ? Author Type: Nurse Practitioner Type: H&P Filed: 04/26/2024 10:18 Note Text: [facility] HISTORY AND PHYSICAL EXAMINATION SERVICE DATE: 04/26/2024 SERVICE TIME: 10:02 AM PRIMARY CARE PHYSICIAN: Reva Shannon CNP, WENDY REASON FOR VISIT: Abigail Washington is a 78 year old male who is scheduled for at the request of Dr. Desiree Rooney for consultation. My final recommendation will be communicated back to the requesting physician by way of shared medical record or letter. Assessment Hyperlipidemia Assessment: stable on medication Follows with PCP GERD (gastroesophageal reflux disease) Assessment: stable on medication Omeprazole(Prilosec) Jacobs Activity Status Index: METS: Walk indoors, such as around the house (1.75 METs) Do light work around the house, such as dusting or washing dishes (2.70 METs) Take care of self; that is eating, dressing, bathing, using the toilet (2.75 METs) Walk a block or two on level ground (2.75 METs) Do moderate work around the house, such as vacuuming, sweeping floors, or carrying in groceries (3.50 METs) Do yardwork, such as raking leaves, weeding, or pushing a power mower (4.50 METs) Climb a flight of stairs or walk up a hill (5.50 METs) DASI Score: 23.45 Patient denies any chest pain or undue shortness of breath with the above physical activity. Clinical Frailty Scale: 2. Well STOP-Bang Score: Patient over 50 years old Male patient Denies snoring loudly Denies feeling tired, fatigued, or sleepy during the daytime Has not been observed to stop breathing or choking/gasping during sleep Denies having high blood pressure BMI less than or equal to 35 kg/m2 Does not have a large neck STOP-Bang Score: 2 [id number] Score: Age: >=75 Sex: male CHF history: No Hypertension history: No Stroke/TIA/thromboembolism history: No Vascular disease history: No Diabetes history: No [id number] Score: 2 ARISCAT Score: Age: 51-80 Preoperative SpO2: >=96% Respiratory infection in the last month: No Preoperative anemia: Yes Surgical incision: peripheral Duration of surgery: <2 hrs Emergency procedure: No ARISCAT Score: 14 ANESTHESIA FINDINGS: Intubation History: No history of difficult intubation. No abnormal airway history Significant Anesthesia Considerations: none Airway History: No history of difficult airway No abnormal airway history I - PHYSICAL EVALUATION AIRWAY Patient intubated: No. Tracheostomy tube not present Mallampati: II. TM distance: >3 FB. Neck ROM: full ROM without neurological symptoms. Mouth opening: adequate. Short neck: no. Thick neck: no Pitts present: yes Lip Bite Test: II Microretrognathia/Micronagth ia/Recessed Chin: No DENTAL Dentures, upper: complete. Dentures, lower: complete. II - ANESTHESIA PLAN Beta Philip Monitoring Plan Post Procedure Analgesic Plan Prepared for surgery: This patient is optimally prepared for surgery. CONSULTS: Patient does not require consults for optimization at this time. The Following Tests/Procedures Have Been Initiated: Labs not indicated per PACC protocol, EKG not indicated per [facility] protocol Planned Anesthetic: Per anesthesia choice Subjective CHIEF COMPLAINT: Bilateral change of vision HPI: 78 year old male with bilateral change of vision that has been ongoing for 2 years. Patient states that he has blurred Vision,burning,decreased vision,difficulty with driving,difficulty with reading,double vision,dryness,eye discharge,glare,itching,tear ing . No alleviating factors. No pain today REVIEW OF SYSTEMS: PAIN ASSESSMENT: General: No weight loss, malaise or fevers. Neuro: No history of TIA's, stroke, LICENSED LOAN OFFICER tumor, impaired sensorium, hemiplegia, paraplegia or quadraplegia. No neurological symptoms or problems. Respiratory: No history of current cough or dyspnea, or pneumonia in the past 6 weeks. No history of respiratory/pulmonary symptoms or problems. Cardiovascular: No history of HTN requiring medication, no history of angina, CHF, AK, cardiac surgery or stents. Denies rest pain, gangrene or revascularization/amputation for PVD. No history of cardiovascular symptoms or problems. Positive for HLD GI: Positive for GERD, Negative for Hepatitis, Liver disease, Pancreatitis, Colon cancer, Rectal cancer : No history of dysuria, frequency or incontinence,, stones or chronic kidney disease, No difficulty urinating, nocturia > 1 time per night or hematuria Endocrine: No history of diabetes. Has not taken steroids within the past 30 days. No history of endocrinological symptoms or problems. Hematology: No history of bleeding or clotting disorder. Pt is not taking anti-coagulation or platelet medications. No history of hematological symptoms or problems. Oncology: No history of CA (more content not included)... [facility] IOL BIOMETRY W/ IOL CALC OU (BOTH EYES)on 04-26-2024 [facility] Radiology Study observation (narrative) [facility] Ambulatory Visit Summaryon 1 04-08-2023 Ambulatory Visit Summary Ambulatory Visit Summary ABIGAIL WASHINGTON :1945 Visit Date:02/06/2024 Ambulatory Visit Instructions Your Diagnosis Recurrent umbilical hernia Your Care Team Attending Physician - ELAINE FRANCISCO, Jaciel Obando Primary Care Physician - REVA SHANNON CNP This Is Your Medications List Contact prescribing physician if questions or concerns omeprazole (Prilosec OTC) simvastatin (simvastatin 20 mg Tab) Procedures Performed Repair of umbilical hernia (01/17/2024), Colonoscopy (08/09/2023), Colonoscopy (09/23/2015), EGD - esophagogastroduodenoscopy (09/23/2015), Cholecystectomy, Excision of basal cell carcinoma, Excision of squamous cell carcinoma, Repair of umbilical hernia, Tonsillectomy. What to do next You Need to Schedule the Following Appointments Follow Up with ELAINE FRANCISCO, CASE Bautista When: Only if needed Where: [address] [place] [address]- Medications What How Much When Instructions Unchanged [...] you for choosing us for your care. [facility] General Surgery Office/Clini c Noteon 02-06-2024 General Surgery Office/Clinic Note General Surgery Office/Clinic Note Chief Complaint post operative follow up HPI Staff 20 day post operative follow up post robotic assisted umbilical hernia repair. Reports intermittent soreness to upper port site. Taking Ibuprofen BID. Denies bleeding or drainage. Bowels moving well. Wearing abdominal binder. History of Present Illness 3 weeks s/p robotic assisted umbilical incisional hernia repair (recurrent umbilical hernia); doing well, taking ibuprofen prn; no N/V; no drainage from incisions, mild soreness at times; normal bms; no strenuous activities; wearing binder at all times. Review of Systems PHQ Score Initial Depression [...] and are negative or noncontributory. Physical Exam abd: soft, nontender, nondistended, incisions without erythema or drainage; no ecchymosis or seromas; umbilical area well-healed, no induration. Assessment/Plan 1. Recurrent umbilical hernia (K42.9: Umbilical hernia without obstruction or gangrene) doing well, gradually resume regular activities next week; can wear binder prn; call with problems/questions. Follow-up With When Contact Information ELAINE FRANCISCO, CASE Bautista Only if needed [address] [place] [address]- Additional Instructions: Problem List/Past Medical History Ongoing Anxiety Benign neoplasm of descending colon Biloma following surgery Diverticulosis Essential hypertension History of colon polyps Hypercholesterolemia Hyperlipidemia Lesion of liver Leukocytosis Positive colorectal cancer screening using Cologuard test Recurrent umbilical hernia Right upper quadrant pain Sigmoid diverticulosis Historical BMI 25.0-25.9,adult Overweight Procedure/Surgical History Repair of umbilical hernia (01/17/2024), Colonoscopy (08/09/2023), Colonoscopy (09/23/2015), EGD - esophagogastroduodenoscopy (09/23/2015), Cholecystectomy, Excision of basal cell carcinoma, Excision of squamous cell carcinoma, Repair of umbilical hernia, Tonsillectomy. Medications Prilosec OTC, 20 mg, Oral, Daily simvastatin 20 mg Tab, 20 mg= 1 tab(s), Oral, qPM Allergies No Known Allergies No Known Medication Allergies Social History Alcohol - Denies Alcohol Use, 07/11/2023 Never., 01/05/2024 Substance Abuse - Denies Substance Abuse, 07/11/2023 Never., 01/05/2024 Tobacco Former smoker, quit more than 30 days ago Tobacco Use:., 02/06/2024 Family History Diabetes mellitus type 2: Mother and Brother. Heart disease: Father. Hypertension: Father and Brother. Primary malignant neoplasm of colon: Sister. Immunizations Vaccine Date Status influenza virus vaccine, inactivated 11/23/2022 Recorded SARS-CoV-2 (COVID-19) mRNAMUL.ORD![id number] 12/14/2021 Recorded SARS-CoV-2 (COVID-19) mRNA BNT-162b2 vax 06/29/2021 Recorded SARS-CoV-2 (COVID-19) mRNA-1273 vaccine 01/06/2021 Recorded SARS-CoV-2 (COVID-19) mRNA-1273 vaccine 06/04/2020 Recorded SARS-CoV-2 (COVID-19) mRNA-1273 vaccine 05/07/2020 Recorded Normal [facility] Comment on above: Result Comment: Elec tronically Signed By: ELAINE FRANCISCO, Jaciel Obando\.br\Date and Time Signed: 02/06/24 09:17 EST Ambulatory Visit Summaryon 1 03-25-2023 Ambulatory Visit Summary Ambulatory Visit Summary ABIGAIL WASHINGTON :1945 Visit Date:01/24/2024 Ambulatory Visit Instructions Your Diagnosis Recurrent umbilical hernia Your Care Team Attending Physician - Jaciel HENRY MD Primary Care Physician - REVA SHANNON CNP This Is Your Medications List Contact prescribing physician if questions or concerns omeprazole (Prilosec OTC) simvastatin (simvastatin 20 mg Tab) Procedures Performed Repair of umbilical hernia (01/17/2024), Colonoscopy (08/09/2023), Colonoscopy (09/23/2015), EGD - esophagogastroduodenoscopy (09/23/2015), Cholecystectomy, Excision of basal cell carcinoma, Excision of squamous cell carcinoma, Repair of umbilical hernia, Tonsillectomy. What to do next Scheduled Follow-Up Appointments Monday 8:40 AM EST With: ELAINE FRANCISCO, Jaciel Obando Where: [place] [id number] [facility] [address], [address], [place] [address]- Medications What How Much When Instructions Unchanged [...] for choosing us for your care. Normal [facility] General Surgery Office/Clini c Noteon 01-24-2024 General Surgery Office/Clinic Note General Surgery Office/Clinic Note Chief Complaint post operative follow up HPI Staff 7 day post operative follow up post robotic assisted umbilical hernia repair. Reports minimal discomfort. Taking Hydrocodone BID and Ibuprofen 600mg BID. Denies bleeding or drainage. Archie moving well. Wearing abdominal binder as directed. History of Present Illness 1 week s/p robotic-assisted umbilical hernia repair for recurrent umbilical hernia; doing well, pain controlled, no N/V; normal bms, voiding well; wearing abd binder. Review of Systems PHQ Score Initial Depression [...] and are negative or noncontributory. Physical Exam abd: soft, normal bs, nontender, nondistended; incisions without erythema or drainage, umbilicus with minimal resolving ecchymosis, no seroma or hematoma. Assessment/Plan 1. Recurrent umbilical hernia (K42.9: Umbilical hernia without obstruction or gangrene) doing well; continue no lifting > 10 lbs for 3 weeks; follow up in 2 weeks, call sooner if problems/questions. Follow-up No qualifying data available Problem List/Past Medical History Ongoing Anxiety Benign neoplasm of descending colon Biloma following surgery Diverticulosis Essential hypertension History of colon polyps Hypercholesterolemia Hyperlipidemia Lesion of liver Leukocytosis Positive colorectal cancer screening using Cologuard test Recurrent umbilical hernia Right upper quadrant pain Sigmoid diverticulosis Historical BMI 25.0-25.9,adult Overweight Procedure/Surgical History Repair of umbilical hernia (01/17/2024), Colonoscopy (08/09/2023), Colonoscopy (09/23/2015), EGD - esophagogastroduodenoscopy (09/23/2015), Cholecystectomy, Excision of basal cell carcinoma, Excision of squamous cell carcinoma, Repair of umbilical hernia, Tonsillectomy. Medications Prilosec OTC, 20 mg, Oral, Daily simvastatin 20 mg Tab, 20 mg= 1 tab(s), Oral, qPM Allergies No Known Allergies No Known Medication Allergies Social History Alcohol - Denies Alcohol Use, 07/11/2023 Never., 01/05/2024 Substance Abuse - Denies Substance Abuse, 07/11/2023 Never., 01/05/2024 Tobacco Former smoker, quit more than 30 days ago Tobacco Use:., 01/10/2024 Family History Diabetes mellitus type 2: Mother and Brother. Heart disease: Father. Hypertension: Father and Brother. Primary malignant neoplasm of colon: Sister. Immunizations Vaccine Date Status influenza virus vaccine, inactivated 11/23/2022 Recorded SARS-CoV-2 (COVID-19) [id number].ORD![id number] 12/14/2021 Recorded SARS-CoV-2 (COVID-19) mRNA BNT-162b2 vax 06/29/2021 Recorded SARS-CoV-2 (COVID-19) mRNA-1273 vaccine 01/06/2021 Recorded SARS-CoV-2 (COVID-19) mRNA-1273 vaccine 06/04/2020 Recorded SARS-CoV-2 (COVID-19) mRNA-1273 vaccine 05/07/2020 Recorded Normal [facility] Comment on above: Result Comment: Elec tronically Signed By: ELAINE FRANCISCO, Jaciel Hall\Date and Time Signed: 01/24/24 14:51 EST Pathology study report docum entOrdered By: Humberto Perkins on 01-18-2024 Pathology study [facility] Other Phone: Leonides 01-17-2024 L -------- -------- Specimen: [id number] Received: 01/17/24 Status: BRENT Valenzuela Num: [id number] Spec Type: Surgical Subm Dr: Jaciel Henry MD FACS Tissues: A Hernia Sac (HERNIA SAC) Procedures: BENI, Gross/Micro L2 -------- Age/ Patient Sex Location Account Attending Physician -------- Abigail Washington 78/M [facility] [id number] Jaciel Henry MD FACS -------- SPEC NUM: [id number] RECD: 01/17/24 STATUS: BRENT VALENZUELA NUM: [id number] DAMARI: 01/17/[address] [facility] [facility] [address]: Jaciel Henry MD FACS ENTERED: 01/17/[address]: Gonzalez Lazaro SPEC TYPE: Surgical DEPT: [facility] ENTERED BY: [id number] RECV BY: [id number] ORDERED: HE, Gross/Micro L2 ORDERED: HE, Gross/Micro L2 Pathological Diagnosis Soft tissue, ventral region, repair excision: -At least moderately incarcerated umbilical herniorrhaphy membranous soft tissue with marked thickening of the entrapped abdominalis fascial layer, and with moderate congestion as well, otherwise without secondary infection observed Clinical Information Recurrent umbilical hernia Gross Description Part A is received in formalin labeled with the patients name, date of , and hernia sac is a coughlin-pink, saclike portion of fibromembranous tissue, 6 x 4 x 1.5 cm. The specimen is smooth and glistening on 1 surface, while the opposing surface is focally adhesed with adherent adipose tissue, up to 0.5 cm in thickness. Serial sections reveal angel-coughlin to pink, glistening and uniform cut surfaces. Supervisor Safety Deposit sections are submitted in a single cassette. (1, , [id number]) JG -------- Specimen: [id number] Received: 01/17/24 Status: BRENT Valenzuela Num: [id number] Spec Type: Surgical Subm Dr: Jaciel Henry MD FACS Tissues: A Hernia Sac (HERNIA SAC) Procedures: Obdulio BAZAN/Micky L2 -------- Patient: Abigail Washington [id number] (Continued) -------- Specimen: [id number] Received: 01/17/24 (Continued) Signed (signature on file) Humberto Perkins MD 01/18/24 1806 -------- Specimen: [id number] Received: 01/17/24 Status: BRENT Valenzuela Num: [id number] Spec Type: Surgical Subm Dr: Jaciel Henry MD FACS Tissues: A Hernia Sac (HERNIA SAC) Procedures: HE, Gross/Micro L2 -------- Patient: Abigail Washington Marely [id number] (Continued) -------- Specimen: [id number] Received: 01/17/24 (Continued) Microscopic Description Microscopic examinations are performed supporting the above interpretation CPT Codes 54245 -------- -------- Specimen: [id number] Received: 01/17/24 Status: BRENT Valenzuela Num: [id number] Spec Type: Surgical Subm Dr: Jaciel Henry MD FACS Tissues: A Hernia Sac (HERNIA SAC) Procedures: HE, Gross/Micro L2 -------- Patient: Abigail Washington [id number] (Continued) -------- Signed (signature on file) Humberto Perkins MD 01/18/241800 [facility] Ambulatory Visit Summaryon 1 03-11-2023 Ambulatory Visit [...] you for choosing us for your care. [facility] Ambulatory Visit Summaryon 0 11-21-2023 Ambulatory [...] you for choosing us for your care. [facility] Ambulatory Visit Summaryon 0 08-29-2023 Ambulatory Visit Summary ABIGAIL WASHINGTON :1945 Visit Date:08/29/2023 Ambulatory Visit Instructions Your Care Team Attending Physician - ELAINE FRANCISCO, Jaciel Obando Primary Care Physician - SHIVA NGUYEN, REVA Villagomez This Is Your Medications List simvastatin (simvastatin 20 mg Tab) Procedures Performed Colonoscopy (08/09/2023), Colonoscopy (09/23/2015), EGD - esophagogastroduodenoscopy (09/23/2015), Cholecystectomy, Excision of basal cell carcinoma, Excision of squamous cell carcinoma, Repair of umbilical hernia, Tonsillectomy. What to do next Scheduled Follow-Up Appointments Monday 8:15 AM EDT With: Vinod FRANCISCO, Renate Morales Where: [facility] General Surgery Office/Clini c Noteon 08-29-2023 General [...] virus vaccine, inactivated 11/23/2022 Recorded SARS-CoV-2 (COVID-19) mRNAMUL.[id number] 12/14/2021 Recorded SARS-CoV-2 (COVID-19) mRNA BNT-162b2 vax 06/29/2021 Recorded SARS-CoV-2 (COVID-19) mRNA-1273 vaccine 01/06/2021 Recorded SARS-CoV-2 (COVID-19) mRNA-1273 vaccine 06/04/2020 Recorded SARS-CoV-2 (COVID-19) mRNA-1273 vaccine 05/07/2020 Recorded Normal [facility] Comment on above: Result Comment: Elec tronically Signed By: ELAINE FRANCISCO, Jaciel Martinbr\Date and Time Signed: 08/29/23 16:38 EDT Reminderson 08-29-2023 Reminders - From: Hortensia Rivera LPN To: N - Clinical; Sent: 08/29/2023 15:20:02 EDT Show up: 07/08/2028 07:00:00 EDT Subject: colonoscopy recall Due Date/Time: 08/08/2028 07:00:00 EDT Reminder/Recall Patient due for surveillance colonoscopy 08/08/2028 due to history of polyp/family history of colon cancer. Normal [facility] Pathology Noteon 08-20-2023 Pathology Note [id number]#1.00TIFF Normal [facility] Outside Colonoscopyon 2023 Outside Colonoscopy [id number]#1.00TIFF Normal [facility] Leonides 08-09-2023 L Specimen: [id number] eceived: 08/10/23-1256 Status: BRENT Bianca Num: [id number] Spec Type: Surgical Subm Dr: Jaciel Henry MD FACS Tissues: A Colon Biopsy (SIGMOID POLYP) Procedures: HE/2, Gross/Micro L4 Age/ Patient Sex Location Account Attending Physician Abigail Washington 77/M LABELL [id number] Jaciel Henry MD FACS SPEC NUM: [id number] RECD: 08/10/23 STATUS: BRENT VALENZUELA NUM: [id number] DAMARI: 08/09/[address] [facility] [address]: Jaciel Henry MD FACS ENTERED: 08/10/23 [facility] DR: Lamberto,Lab SPEC TYPE: Surgical DEPT: OMAYRA WILLOUGHBY ORDERED: [...] cm, entirely submitted in A1. CPT Codes 16057 -------- -------- Specimen: [id number] Received: 08/10/23 Status: BRENT Valenzuela Num: [id number] Spec Type: Surgical Subm Dr: Jaciel Henry MD FACS Tissues: A Colon Biopsy (SIGMOID POLYP) Procedures: HE/2, Gross/Micro L4 -------- Patient: Abigail Washington [id number] (Continued) -------- Signed (signature on file) Christ-Afshin Perkins MD 08/14/23 1556 Normal [facility] Insurance Correspondenceon 0 07-26-2023 Insurance Correspondence [id number]#[id number] Normal [facility] ASPIRATE CULTUREon 4 Bacteria identified Aer cx Nom (Asp) GRAM STAIN 10 to 24 WHITE BLOOD CELLS/LPF 0 SQUAMOUS EPITHELIAL CELLS/LPF NO ORGANISMS SEEN CULTURE RESULTS NO GROWTH 3 DAYS Normal [facility] Comment on above: Performed By: #### 5 97-5 #### [facility] ([id number]) [address], [address] [place] [address] COMPREHENSIVE METABOLIC PANE Leonides 07-20-2023 Albumin [Mass/Vol] 3.5 g/dL Normal 3.2-5.3 [facility] Comment on above: Performed By: #### C MP #### [facility] ([id number]) [address] [place] [address] 84421 ALP [Catalytic activity/Vol] 298 U/L High 39-130 [facility] Comment on above: Performed By: #### C MP #### [facility] ([id number]) [address] [place] [address] 04774 ALT [Catalytic activity/Vol] 32 U/L Normal 0-40 [facility] Comment on above: Performed By: #### C MP #### [facility] ([id number]) [address] [place] [address] 37040 Anion gap [Moles/Vol] 10 mmol/L Normal 5-15 [facility] Comment on above: Performed By: #### C MP #### [facility] ([id number]) [address] [place] [address] 13150 AST [Catalytic activity/Vol] 36 U/L Normal 0-41 [facility] Comment on above: Performed By: #### C MP #### [facility] ([id number]) [address] [place] [address] 01549 Bilirubin [Mass/Vol] 1.0 mg/dL Normal 0.3-1.2 [facility] Comment on above: Performed By: #### C MP #### [facility] ([id number]) [address] [place] [address] 25819 Calcium [Mass/Vol] 8.8 mg/dL Normal 8.5-10.5 [facility] Comment on above: Performed By: #### C MP #### [facility] ([id number]) [address] [place] [address] 02392 Chloride [Moles/Vol] 101 mmol/L Normal 98-109 [facility] Comment on above: Performed By: #### C MP #### [facility] ([id number]) [address] [place] [address] 85944 CO2 [Moles/Vol] 25 mmol/L Normal 22-32 [facility] Comment on above: Performed By: #### C MP #### [facility] ([id number]) [address] [place] [address] 88864 Creatinine [Mass/Vol] 0.89 mg/dL Normal 0.70-1.20 [facility] Comment on above: Result Comment: METH OD TRACEABLE TO IDMS STANDARD Performed By: #### C MP #### [facility] ([id number]) [address] [place] [address] 48960 GFR/1.73 sq M.predicted among non-blacks MDRD (S/P/Bld) [Vol rate/Area] 89 mL/min/{1.73_m2} Normal >59 [facility] Comment on above: Result Comment: Reported eGFR is based on the CKD-EPI 2020 equation that does not use a race coefficient. Performed By: #### C MP #### [facility] ([id number]) [address] [place] [address] 22995 Glucose [Mass/Vol] 104 mg/dL High 65-99 [facility] Comment on above: Performed By: #### C MP #### [facility] ([id number]) [address] [place] [address] 15904 Potassium [Moles/Vol] 4.0 mmol/L Normal 3.5-5.0 [facility] Comment on above: Performed By: #### C MP #### [facility] ([id number]) [address] [place] [address] 45462 Protein [Mass/Vol] 7.8 g/dL Normal 6.0-8.0 [facility] Comment on above: Performed By: #### C MP #### [facility] ([id number]) [address] [place] [address] 89112 Sodium [Moles/Vol] 136 mmol/L Normal 134-146 [facility] Comment on above: Performed By: #### C MP #### [facility] ([id number]) [address] [place] [address] 60702 Urea nitrogen [Mass/Vol] 17 mg/dL Normal 5-27 [facility] Comment on above: Performed By: #### C MP #### [facility] ([id number]) [address] [place] [address] Cytologyon 07-20-2023 Cytology Normal [facility] Comment on above: Result Comment: [facility] [address] [place] [address] Cytology Consultation Patient Name:ABIGAIL WASHINGTON:1945 (Age: 77)Gender:MTaken:07/20/2023eported:07/21/2023 11:52Physician(s):Zack Gibson M.D. ([phone])Copy To:Jaciel Echavarria D.O. Rec. #:[id number]: #[id number] Final Cytologic Diagnosis Bile leak fluid: No malignant cells identified. critical access hospital/07/21/2023 Interpretation performed at [facility], [address] [place] [address], License number: [id number].Electronically Signed Out By Jerrod Batista M.D. Clinical History None given. Gross Description Received was 1,600 mL of brown fluid unfixed labeled as Padmini, bile leak . CytoLyt added in lab. Specimen placed in formalin at 14:00 and had a total fixation time of 12 hours. 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 A [...] PM Normal [facility] [place] HEPATOBILIARY SYS IMAGING WO PHARMACOLOGIC AGENTon [...] AM Normal [facility] PLATELET COUNT AND MPVon Platelet mean volume (Bld) [Entitic vol] 7.2 fL Normal 7-12 [facility] Comment on above: Performed By: #### P LTCT, PINR #### [facility] ([id number]) [address] [place] [address] 56882 Platelets (Bld) [#/Vol] 247 10*3/uL Normal 150-450 [facility] Comment on above: Performed By: #### P LTCT, PINR #### [facility] ([id number]) [address] [place] [address] PROTIME AND INRon 07-20-2023 INR Coag (PPP) [Relative time] 1.1 {INR} Normal 0.8-1.1 [facility] Comment on above: Performed By: #### P LTCT, PINR #### [facility] ([id number]) [address] [place] [address] PT Coag (PPP) [Time] 12.8 s Normal 9.8-13.2 [facility] Comment on above: Result Comment: NEW REFERENCE RANGE Performed By: #### P LTCT, PINR #### [facility] ([id number]) [address] [place] [address] 36603 Consent for Procedure/Surger yon 07-12-2023 Consent for Procedure/Surgery [id number]#1.00TIFF Normal [facility] Ambulatory Visit Summaryon 0 07-11-2023 Ambulatory Visit [...] you for choosing us for your care. [facility] Facesheeton 07-11-2023 Facesheet [id number]#1.00TIFF [facility] Physician Referralon 024 Physician Referral [id number]#1.00TIFF [facility] Multiple labson 05-27-2023 [facility] Surgical Pathologyon 024 [facility] Leonides 05-24-2023 L Specimen: [id number] eceived: 05/25/23 Status: BRENT Valenzuela Num: [id number] Spec Type: Surgical Subm Dr: Jaciel Echavarria DO Tissues: A Gallbladder (GALLBLADDER) Procedures: HE, Gross/Micro L3 Age/ Patient Sex Location Account Attending Physician Abigail Washington 77/M LABELL [id number] Jaciel Echavarria DO SPEC NUM: [id number] RECD: 05/25/23 STATUS: [facility] BIANCA NUM: [id number] DAMARI: 05/24/[address]: Jaciel Echavarria DO ENTERED: 05/25/23 [facility] DR: Gonzalez Lazaro SPEC TYPE: Surgical DEPT: O[facility] WILLOUGHBY ORDERED: HE, Gross/Micro L3 ORDERED: HE, Gross/Micro L3 Pathological Diagnosis Gallbladder, Cholecystectomy: Acute Suppurative Cholecystitis And Cholelithiasis. Clinical Information Chest pain, acute cholecystitis Gross Description Received in formalin labeled with the patient's name, date of and gallbladder is a 10.0 x 4.5 x 3.5 cm previously incised gallbladder with a mottled, purple-pink to angel-coughlin serosa. The average wall thickness is 0.7 cm. The lumen contains minimal bile and multiple (approximately 20) black choleliths measuring up to 1.5 cm. The mucosa is mottled, red- brown to green-angel and denuded. . Supervisor [employer]osit sections are submitted in one cassette labeled A1. CPT Codes 17919 -------- -------- Specimen: [id number] Received: 05/25/23 Status: QUETAPatrice Bianca Num: [id number] Spec Type: Surgical Subm Dr: Jaciel Echavarria DO Tissues: A Gallbladder (GALLBLADDER) Procedures: Obdulio BAZAN/Micky L3 -------- Patient: Abigail Washington [id number] (Continued) -------- Signed (signature on file) Nikita Dunne MD 05/26/23 1220 Normal [facility] NM STRESS/REST MULTIon 06-06 NM STRESS/REST MULTI Patient: ABIGAIL WASHINGTON Exam Date: 06/06/2022 : 1945 Gender:M Ordering : [facility] Admission #: [id number] Family : Order #: [id number] CLICK HERE TO VIEW EXAM RADIOLOGY REPORT [...] nuclear medicine myocardial perfusion scan. Dictated by: Zulema Hendrickson M.D. on 06/07/2022 at 07:04 Approved by: Zulema Hendrickson M.D. on 06/07/2022 at 07:05 Normal [facility] INSULINon 05-19-2022 Insulin 11.6 uIU/mL Normal 2.6-24.9 [facility] Comment on above: Performed By: #### I NSULIN #### [facility] [address] [place] [address] Dr. Karely Perkins CBC AUTO DIFFon 05-18-2022 BASO # 0.0 103/ul Normal 0.0-0.1 [facility] Comment on above: Performed By: #### C BC #### [facility] [address] [place] [address] Dr. Karely Perkins Basophils/100 WBC (Bld) 0.6 % Normal 0.2-2.0 [facility] Comment on above: Performed By: #### C BC #### [facility] [address] [place] [address] Dr. Karely Perkins EO # 0.2 103/ul Normal 0.0-0.7 [facility] Comment on above: Performed By: #### C BC #### [facility] [address] [place] [address] Dr. Karely Perkins Eosinophils/100 WBC (Bld) 3.9 % Normal 0.9-7.0 [facility] Comment on above: Performed By: #### C BC #### [facility] [address] [place] [address] Dr. Karely Perkins Erythrocyte distribution width (RBC) [Ratio] 12.8 % Normal 11.0-15.0 [facility] Comment on above: Performed By: #### C BC #### [facility] [address] [place] [address] Dr. Karely Perkins Hematocrit (Bld) [Volume fraction] 48.4 % Normal 42.0-54.0 [facility] Comment on above: Performed By: #### C BC #### [facility] [address] [place] [address] Dr. Karely Perkins Hemoglobin (Bld) [Mass/Vol] 15.8 g/dL Normal 14.0-18.0 [facility] Comment on above: Performed By: #### C BC #### [facility] [address] [place] [address] Dr. Karely Perkins IG # 0.01 10e3/ul Normal 0.00-0.03 [facility] Comment on above: Performed By: #### C BC #### [facility] [address] [place] [address] Dr. Karely Perkins IG % 0.2 % Normal 0.0-0.5 [facility] Comment on above: Performed By: #### C BC #### [facility] [address] [place] [address] Dr. Karely Perkins LYMPH # 1.4 103/ul Normal 1.2-3.8 [facility] Comment on above: Performed By: #### C BC #### [facility] [address] [place] [address] Dr. Karely Perkins Lymphocytes/100 WBC (Bld) 28.5 % Normal 20.5-60.0 [facility] Comment on above: Performed By: #### C BC #### [facility] [address] [place] [address] Dr. Karely Perkins MANUAL DIFF REQ NO Normal [facility] Comment on above: Performed By: #### C BC #### [facility] [address] [place] [address] Dr. Karely Perkins MCH (RBC) [Entitic mass] 28.7 pg Normal 25.9-34.0 [facility] Comment on above: Performed By: #### C BC #### [facility] [address] [place] [address] Dr. Karely Perkins MCHC (RBC) [Mass/Vol] 32.6 g/dL Normal 29.9-35.2 [facility] Comment on above: Performed By: #### C BC #### [facility] [address] [place] [address] Dr. Karely Perkins MCV (RBC) [Entitic vol] 87.8 fL Normal 80.0-94.0 [facility] Comment on above: Performed By: #### C BC #### [facility] [address] [place] [address] Dr. Karely Perkins MONO # 0.5 103/ul Normal 0.3-0.8 [facility] Comment on above: Performed By: #### C BC #### [facility] [address] [place] [address] Dr. Karely Perkins Monocytes/100 WBC (Bld) 10.3 % Normal 1.7-12.0 [facility] Comment on above: Performed By: #### C BC #### [facility] [address] [place] [address] Dr. Karely Perkins NEUT # 2.7 103/ul Normal 1.4-6.5 [facility] Comment on above: Performed By: #### C BC #### [facility] [address] [place] [address] Dr. Karely Perkins Neutrophils/100 WBC (Bld) 56.5 % Normal 43.0-75.0 [facility] Comment on above: Performed By: #### C BC #### [facility] [address] [place] [address] Dr. Karely Perkins Platelet mean volume (Bld) [Entitic vol] 9.3 fL Critically low 9.5-13.5 [facility] Comment on above: Performed By: #### C BC #### [facility] [address] [place] [address] Dr. Karely Perkins PLT 184 103/ul Normal 150-450 [facility] Comment on above: Performed By: #### C BC #### [facility] [address] [place] [address] Dr. Karely Perkins RBC 5.51 106/ul Normal 4.70-6.10 [facility] Comment on above: Performed By: #### C BC #### [facility] [address] [place] [address] Dr. Karely Perkins WBC 4.9 103/ul Normal 4.0-11.0 [facility] Comment on above: Performed By: #### C BC #### [facility] [address] [place] [address] Dr. Karely Perkins GLYCOHEMOGLOBIN A1Con 2022 ADA RECOMMENDATION SEE BELOW Normal [facility] Comment on above: Result Comment: ADA RECOMMENDED LIMIT 4.0 - 6.0 ADA THERAPEUTIC TARGET < 7.0 ACTION SUGGESTED > 7.0 Performed By: #### A 1C #### [facility] [address] [address] [address] Karely Perkins Glucose [Mass/Vol] 120 mg/dL Normal [facility] Comment on above: Performed By: #### A 1C #### [facility] [address] [address] [address] Karely Perkins HbA1c (Bld) [Mass fraction] 5.8 % Normal 4.5-6.2 [facility] Comment on above: Performed By: #### A 1C #### [facility] [address] [address] [address] Karely Perkins LIPID PROFILEon 05-18-2022 CHOL-HDL RATIO NORM SEE BELOW Normal [facility] Comment on above: Result Comment: 3.3 - 4.4 LOW RISK 4.4 - 7.1 AVERAGE RISK 7.1 - 11.0 MODERATE RISK >11.0 HIGH RISK Performed By: #### C MP, LIPID #### [facility] [address] [place] [address] Dr. Karely Perkins Cholesterol [Mass/Vol] 169 mg/dL Normal <=200 [facility] Comment on above: Performed By: #### C MP, LIPID #### [facility] [address] [address] [address] Karely Perkins Cholesterol in HDL [Mass/Vol] 74 mg/dL Critically high 40-60 [facility] Comment on above: Performed By: #### C MP, LIPID #### [facility] [address] [place] [address] Dr. Karely Perkins Cholesterol in LDL [Mass/Vol] 80.6 mg/dL Normal [facility] Comment on above: Performed By: #### C MP, LIPID #### [facility] [address] [place] [address] Dr. Karely Perkins Cholesterol.total/C holesterol in HDL [Mass ratio] 2.3 {ratio} Normal [facility] Comment on above: Performed By: #### C MP, LIPID #### [facility] [address] [place] [address] Dr. Karely Perkins HDL NORMAL > or = 60 mg/dl - LO W CARDIOVASCULAR RISK <40 mg/dl - HIGH CARDIOVASCULAR RISK Normal [facility] Comment on above: Performed By: #### C MP, LIPID #### [facility] [address] [place] [address] Dr. Karely Perkins LDL CALC NORMAL SEE BELOW Normal [facility] Comment on above: Result Comment: <100 mg/dl OPTIMAL 100 - 129 mg/dl NEAR OR ABOVE OPTIMAL 130 - 159 mg/dl BORDERLINE HIGH 160 - 189 mg/dl HIGH >190 mg/dl VERY HIGH Performed By: #### C MP, LIPID #### [facility] [address] [place] [address] Dr. Karely Perkins Triglyceride [Mass/Vol] 72 mg/dL Normal <=150 [facility] Comment on above: Performed By: #### C MP, LIPID #### [facility] [address] [place] [address] Dr. Karely Perkins VLDL CALC 14.4 mg/dL Normal [facility] Comment on above: Performed By: #### C MP, LIPID #### [facility] [address] [place] [address] Dr. Karely Perkins PROF 14(COMP METB)on 023 Albumin [Mass/Vol] 3.7 g/dL Normal 3.4-5.0 [facility] Comment on above: Performed By: #### C MP, LIPID #### [facility] [address] [place] [address] Dr. Karely Perkins Albumin/Globulin [Mass ratio] 1.0 {ratio} Normal [facility] Comment on above: Performed By: #### C MP, LIPID #### [facility] [address] [place] [address] Dr. Karely Perkins ALP [Catalytic activity/Vol] 117 U/L Critically high 46-116 [facility] Comment on above: Performed By: #### C MP, LIPID #### [facility] [address] [place] [address] Dr. Karely Perkins ALT [Catalytic activity/Vol] 24 U/L Normal 16-63 [facility] Comment on above: Performed By: #### C MP, LIPID #### [facility] [address] [place] [address] Dr. Karely Perkins Anion gap [Moles/Vol] 9.4 mmol/L Normal [facility] Comment on above: Performed By: #### C MP, LIPID #### [facility] [address] [place] [address] Dr. Karely Perkins AST [Catalytic activity/Vol] 34 U/L Normal 15-37 [facility] Comment on above: Performed By: #### C MP, LIPID #### [facility] [address] [place] [address] Dr. Karely Perkins Bilirubin [Mass/Vol] 0.7 mg/dL Normal 0.2-1.0 [facility] Comment on above: Performed By: #### C MP, LIPID #### [facility] [address] [place] [address] Dr. Karely Perkins Calcium [Mass/Vol] 9.0 mg/dL Normal 8.5-10.1 [facility] Comment on above: Performed By: #### C MP, LIPID #### [facility] [address] [place] [address] Dr. Karely Perkins Chloride [Moles/Vol] 108 mmol/L Critically high 98-107 [facility] Comment on above: Performed By: #### C MP, LIPID #### [facility] [address] [place] [address] Dr. Karely Perkins CO2 [Moles/Vol] 30.7 mmol/L Normal 21.0-32.0 [facility] Comment on above: Performed By: #### C MP, LIPID #### [facility] [address] [place] [address] Dr. Karely Perkins Creatinine [Mass/Vol] 0.90 mg/dL Normal 0.70-1.30 [facility] Comment on above: Performed By: #### C MP, LIPID #### [facility] [address] [place] [address] Dr. Karely Perkins EGFR-AF ICELANDIC >60 Normal >=60 [facility] Comment on above: Performed By: #### C MP, LIPID #### [facility] [address] [place] [address] Dr. Karely Perkins EGFR-NON AF ICELANDIC >60 Normal >=60 [facility] Comment on above: Performed By: #### C MP, LIPID #### [facility] [address] [place] [address] Dr. Karely Perkins Globulin (S) [Mass/Vol] 3.6 g/dL Normal [facility] Comment on above: Performed By: #### C MP, LIPID #### [facility] [address] [place] [address] Dr. Karely Perkins Glucose [Mass/Vol] 109 mg/dL Critically high 74-[address] [facility] Comment on above: Performed By: #### C MP, LIPID #### [facility] [address] [place] [address] Dr. Karely Perkins Potassium [Moles/Vol] 4.1 mmol/L Normal 3.5-5.1 [facility] Comment on above: Performed By: #### C MP, LIPID #### [facility] [address] [place] [address] Dr. Karely Perkins Protein [Mass/Vol] 7.3 g/dL Normal 6.4-8.2 [facility] Comment on above: Performed By: #### C MP, LIPID #### [facility] [address] [place] [address] Dr. Karely Perkins Sodium [Moles/Vol] 144 mmol/L Normal 136-145 [facility] Comment on above: Performed By: #### C MP, LIPID #### [facility] [address] [place] [address] Dr. Karely Perkins Urea nitrogen [Mass/Vol] 20.0 mg/dL Critically high 7.0-18.0 [facility] Comment on above: Performed By: #### C MP, LIPID #### [facility] [address] [place] [address] Dr. Karely Perkins Urea nitrogen/Creatinine [Mass ratio] 22.2 mg/mg Normal [facility] Comment on above: Performed By: #### C MP, LIPID #### [facility] [address] [place] [address] Dr. Karely Perkins US SCROTUMon 11-18-2021 US [...] of testicles and epididymides. Electronically authenticated by: ZULEMA HENDRICKSON Date: 2021-11-18 12:10 Normal [facility] Vital Signs Date Time Vital Sign Value Performing Clinician Lucius keane 04-26-2024 10:05-0500 Body height 170.2 cm Pac 1 Work Phone: [facility] 04-26-2024 10:05-0500 Body mass index (BMI) [Ratio] 25.55 kg/m2 [facility] 1 Work Phone: [facility] 04-26-2024 10:05-0500 Body temperature 97.9 [degF] Pac 1 Work Phone: [facility] 04-26-2024 10:05-0500 Body weight 74 kg Pac 1 Work Phone: [facility] 04-26-2024 10:05-0500 Diastolic blood pressure 88 mm[Hg] [facility] 1 Work Phone: [facility] 04-26-2024 10:05-0500 Heart rate 86 /min [facility] 1 Work Phone: [facility] 04-26-2024 10:05-0500 Respiratory rate 16 /min Pacc 1 Work Phone: [facility] 04-26-2024 10:05-0500 SaO2% (BldA) [Mass fraction] 99 % Pacc 1 Work Phone: [facility] 04-26-2024 10:05-0500 Systolic blood pressure 144 mm[Hg] Pacc 1 Work Phone: [facility] 01-10-2024 13:49-0500 Blood Pressure Location Jaciel NILL [facility] [place] 01-10-2024 13:49-0500 Diastolic blood pressure 94 mm[Hg] Jaciel NILL [facility] [place] 01-10-2024 13:49-0500 Heart rate 72 /min Jaciel NILL [facility] [place] 01-10-2024 13:49-0500 Respiratory rate 16 /min Jaciel NILL [facility] [place] 01-10-2024 13:49-0500 Systolic blood pressure 146 mm[Hg] Jaciel NILL [facility] [place] 11-21-2023 13:38-0400 Blood Pressure Location Jaciel NILL [facility] [place] 11-21-2023 13:38-0400 Diastolic blood pressure 84 mm[Hg] Jaciel NILL [facility] [place] 11-21-2023 13:38-0400 Heart rate 72 /min Jaciel NILL [facility] [place] 11-21-2023 13:38-0400 Respiratory rate 16 /min Jaciel NILL [facility] [place] 11-21-2023 13:38-0400 Systolic blood pressure 136 mm[Hg] Jaciel NILL [facility] 07-11-2023 13:24-0400 Blood Pressure Location Jaciel LLOYDL [facility] 07-11-2023 13:24-0400 Diastolic blood pressure 80 mm[Hg] Jaciel NILL [facility] 07-11-2023 13:24-0400 Heart rate 72 /min Jaciel NILL [facility] 07-11-2023 13:24-0400 Respiratory rate 16 /min Jcaiel NILL [facility] 07-11-2023 13:24-0400 Systolic blood pressure 126 mm[Hg] Jaciel NILL [facility] 06-07-2023 11:36-0400 Body height 170.2 cm Lakeisha Jung [employer]G 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 Work Phone: [facility] 06-07-2023 11:36-0400 Body mass index (BMI) [Ratio] 25.31 kg/m2 Lakeisha Jung [employer] 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 Work Phone: [facility] 06-07-2023 11:36-0400 Body weight 73.3 kg Lakeisha Jung H[employer] 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 Work Phone: [facility] 06-07-2023 11:36-0400 Diastolic blood pressure 95 mm[Hg] Lakeisha Jung H[employer] 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 Work Phone: [facility] 06-07-2023 11:36-0400 Heart rate 81 /min Lakeisha Jung [employer] 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 Work Phone: [facility] 06-07-2023 11:36-0400 Systolic blood pressure 178 mm[Hg] Lakeisha Jung H[employer] 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 Work Phone: [facility] Encounters Encounter Date Encounter Type Care Provider Facility Start: 05-23-2024 End: 05-23-2024 ambulatory REVA SHANNON Facility:[facility] Start: 05-23-2024 End: 05-23-2024 Patient encounter procedure Desiree Rooney MD Work Phone: Ophthalmology Comment on above: Pseudophakia of both eyes (Primary Dx); Fourth nerve palsy of left eye Start: 05-22-2024 End: 05-22-2024 ambulatory DESIREE ROONEY Facility:[facility] Start: 05-22-2024 End: 05-22-2024 Patient encounter procedure Nanette Villagomez Arina OD Work Phone: Ophthalmology Comment on above: Pseudophakia, right eye (Primary Dx); Combined 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; Fourth nerve palsy of left eye Start: 05-01-2024 End: 05-01-2024 ambulatory DESIREE ROONEY Facility:[facility] Start: 04-26-2024 End: 04-26-2024 Patient encounter procedure Eye Measurements Work Phone: Ophthalmology Comment on above: Combined forms of ag e-related cataract of right eye; Combined 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 Start: 04-26-2024 End: 04-26-2024 Admission to establishment [facility] [place] Work Phone: Pre Anesthesia Start: 04-26-2024 End: 04-26-2024 ambulatory DESIREE ROONEY Facility:[facility] Start: 04-26-2024 End: 04-26-[address] [facility] [place] Work Phone: Pre Anesthesia Comment on above: Pre-op evaluation (P rimary Dx); Hyperlipidemia, unspecified hyperlipidemia type; Gastroesophageal reflux disease without esophagitis Start: 04-26-2024 Encounter for other preprocedural examination DESIREE ROONEY [facility] Start: 04-26-2024 End: 04-26-2024 Preprocedural examination done Pac [place] 1 Work Phone: [facility] Work Phone: Start: 04-10-2024 End: 04-10-2024 ambulatory DAVY GRAY Facility:[facility] Start: 04-02-2024 End: 04-02-2024 ambulatory DESIREE ROONEY Facility:[facility] Start: 04-02-2024 End: 04-02-2024 Patient encounter procedure Desiree Rooney MD Work Phone: Ophthalmology Comment on above: Combined forms of ag e-related cataract of right eye (Primary Dx); Combined 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; Anatomical narrow angle, bilateral; Fourth nerve palsy of left eye Start: 02-06-2024 End: 02-06-2024 ambulatory Jaciel HENRY Facility:[facility] Start: 02-06-2024 End: 02-06-2024 Patient encounter procedure Jaciel HENRY [facility] Start: 01-24-2024 End: 01-24-2024 ambulatory Jaciel R ELAINE Facility:[facility] Start: 01-24-2024 End: 01-24-2024 Patient encounter procedure Jaciel HENRY [facility] Start: 01-17-2024 End: 01-17-2024 ambulatory Jaciel Henry Facility:[facility] Start: 01-17-2024 End: 01-17-2024 Departed Referred Jaciel Henry MD Work Phone: [facility] [place] [facility] Start: 01-17-2024 End: 01-17-2024 ambulatory Jaciel R GABINOL Facility:[id number] Start: 01-10-2024 End: 01-10-2024 ambulatory Jaciel R GABINOL Facility:[facility] Start: 01-10-2024 End: 01-10-2024 Patient encounter procedure Jaciel HENRY [facility] Start: 01-03-2024 Non-patient / Non-visit Armin Henry MD Work Phone: [facility] Work Phone: Start: 11-21-2023 End: 11-21-2023 ambulatory Jaciel R NILL Facility:[facility] Start: 11-21-2023 End: 11-21-2023 Patient encounter procedure Jaciel R NILL [facility] Start: 10-18-2023 ambulatory [facility] Facilit y:[facility] [place] Start: 08-29-2023 End: 08-29-2023 ambulatory Jaciel R NILL Facility:[facility] Start: 08-29-2023 End: 08-29-2023 Patient encounter procedure Jaciel R NILL [facility] Start: 08-09-2023 End: 08-09-[address] [facility] Work Phone: Start: 08-09-2023 End: 08-09-2023 Departed Referred DO Jaciel Echavarria Work Phone: [facility] [place] [facility] Start: 08-09-2023 End: 08-09-2023 ambulatory Jaciel R GABINOL Facility:CD:[id number] Start: 07-24-2023 End: 07-25-2023 Telephone encounter Christie Alcala [facility] Start: 07-20-2023 End: 07-20-2023 ambulatory REVABRISA SHANNON [facility] Start: 07-20-2023 End: 07-20-2023 ambulatory JACIEL ECHAVARRIA [facility] Start: 07-19-2023 End: 07-19-2023 Orders Only Jaciel Echavarria DO Work Phone: [facility] Comment on above: Abnormal CT of the a bdomen (Primary Dx); Status post laparoscopic cholecystectomy Start: 07-18-2023 End: 07-18-2023 Orders Only Jaciel Echavarria DO Work Phone: [facility] Comment on above: Abnormal CT of the a bdomen (Primary Dx); Status post laparoscopic cholecystectomy Abnormal CT of the a bdomen (Primary Dx) Start: 07-17-2023 End: 07-17-2023 Telephone encounter Ronda Plunkett CMA [facility] Start: 07-11-2023 End: 07-11-2023 ambulatory REVA SHANNON Facility: [place] Start: 07-11-2023 End: 07-11-2023 Patient encounter procedure Jaciel HENRY [facility] [place] Start: 06-19-2023 ambulatory REVA SHANNON Facility: [place] Start: 06-16-2023 ambulatory REVA SHANNON Facility: [facility] Start: 06-07-2023 End: 06-07-2023 ambulatory [facility] Edis JUNG [facility] Start: 06-07-2023 End: 06-07-2023 Patient encounter procedure Lakeisha Jung H[employer] 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 [place] Start: 05-25-2023 End: 05-25-[address] [facility] Work Phone: Start: 06-06-2022 End: 06-07-2022 ambulatory REVA SHANNON Facility:[facility] Start: 05-18-2022 End: 05-19-2022 ambulatory REVA SHANNON Facility:[facility] Start: 11-18-2021 End: 11-19-2021 ambulatory REVA SHANNON Facility:[facility] Start: 05-07-2020 End: 05-07-2020 Patient encounter procedure Wendy Flood Work Phone: [facility] Work Phone: Procedures Date Procedure Procedure Detail Performing Clinician Start: 04-26-2024 IOL BIOMETRY W/ IOL CALC OU (BOTH EYES) Desiree Rooney MD Work Phone: Start: 04-26-2024 ASCAN ONLY - DIAGNOSTIC OU (BOTH EYES) Desiree Rooney MD Work Phone: Start: 01-17-2024 Repair of umbilical hernia Jaciel HENRY Start: 08-09-2023 Colonoscopy Jaciel LLOYDL Start: 05-27-2023 MULTIPLE LABS Not In System Ref Prov Start: 05-25-2023 Level i surg pathology gross examination only Not In System Ref Prov Start: 05-18-2022 PSA screening REVA SHANNON Comment on above: Performed By: #### PSASC #### [facility] [address] [place] [address] Dr. Karely Perkins Start: 05-07-2020 Imm. administration COVID19 Moderna dose 1 Wendy Remigio Work Phone: Start: 05-07-2020 SARS-CoV-2 vaccine, 0.5ml Moderna Wendy Remigio Work Phone: Start: 09-23-2015 Colonoscopy Jaciel LLOYDL Start: 09-23-2015 Esophagogastroduodenoscopy Jaciel LLOYDL Excision of basal cell carcinoma Jaciel LLOYDL Comment on above: back Excision of squamous cell carcinoma Jaciel NILL Comment on above: left shoulder History of cholecystectomy Statu s post laparoscopic cholecystectomy Jaciel Echavarria DO Work Phone: History of cholecystectomy Statu s post laparoscopic cholecystectomy Jaciel Echavarria DO Work Phone: History of cholecystectomy Statu s post laparoscopic cholecystectomy Lakeisha Jung HOT DOG 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 Work Phone: Repair of umbilical hernia M arpitael NILJeffry Tonsillectomy Jaciel LLOYDJeffry Plan of Treatment Date Care Activity Detail Author Start: 07-19-2026 Diabetes Screening Diabetes Screening [facility] Start: 04-02-2025 End: 09-24-2025 ASCAN ONLY - DIAGNOSTIC OU (BOTH EYES) ASCAN ONLY - DIAGNOSTIC OU (BOTH EYES) [facility] Imaging Routine Combined forms of age-related cataract of right eye Combined 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 Expected: 04/02/2025, Expires: 09/24/2025 [facility] Comment on above: Expected: 04/02/2025, Expires: Start: 04-02-2025 End: 09-24-2025 IOL BIOMETRY W/ IOL CALC OU (BOTH EYES) IOL BIOMETRY W/ IOL CALC OU (BOTH EYES) [facility] Imaging Routine Combined forms of age-related cataract of right eye Combined 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 Expected: 04/02/2025, Expires: 09/24/2025 [facility] Comment on above: Expected: 04/02/2025, Expires: Start: 07-19-2024 Adult BMI Screening Adult BMI Screening [facility] Start: 07-19-2024 Tobacco Screening Tobacco Screening [facility] Start: 06-06-2024 Adult BMI Screening Adult BMI Screening [facility] Start: 06-06-2024 Tobacco Screening Tobacco Screening [facility] Start: 05-23-2024 End: 05-23-2024 Patient encounter procedure 05/23/2024 8:15 AM EDT Office Visit [facility] Ophthalmology [address] [place] [address] Desiree Rooney MD [address] [place] [address] Pseudophakia (Primary Dx); Combined 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 Ophthalmology Comment on above: Pseudophakia (Primary Dx); Combined 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 Start: 05-22-2024 End: 05-22-2024 Oph bmtry prtl coher intrfrmtry io lens pwr geovanna OPHTHALMIC BIOMETRY BY PARTIAL COHERENCE INTERFEROMETRY W/INTRAOCULAR LENS POWER CALCULATION Combined 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 05/22/2024 11:21 AM EDT [facility] Start: 05-22-2024 End: 05-22-2024 Xcapsl ctrc rmvl insj io lens prosth w/o ecp PHACOEMULSIFICATION CATARACT IMPLANT INTRAOCULAR LENS W/O ENDOSCOPIC CYCLOPHOTOCOAGULATION Combined 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 05/22/2024 11:21 AM EDT [facility] Start: 05-22-2024 End: 05-22-2024 Admission to same day surgery center Ambulatory Surgery Comment on above: PHACOEMULSIFICATION CATARACT IMPLANT INT RAOCULAR LENS W/O ENDOSCOPIC CYCLOPHOTOCOAGULATION Start: 05-22-2024 End: 05-22-2024 Oph bmtry prtl coher intrfrmtry io lens pwr geovanna [facility] Start: 05-22-2024 Subsequent hospital visit by physician Ambulatory Surgery Comment on above: Combined forms of age-related cataract o f left eye [H25.812] Start: 05-22-2024 End: 05-22-2024 Xcapsl ctrc rmvl insj io lens prosth w/o ecp [facility] Start: 05-06-2024 Covid-19 Vaccine ( season) Covid-19 Vaccine ( season) [facility] Start: 05-01-2024 End: 05-01-2024 Admission to same day surgery center Ambulatory Surgery Comment on above: PHACOEMULSIFICATION CATARACT IMPLANT INT RAOCULAR LENS W/O ENDOSCOPIC CYCLOPHOTOCOAGULATION Start: 05-01-2024 End: 05-01-2024 Oph bmtry prtl coher intrfrmtry io lens pwr geovanna [facility] Start: 05-01-2024 Subsequent hospital visit by physician Ambulatory Surgery Comment on above: Combined forms of age-related cataract o f right eye [H25.811] Start: 05-01-2024 End: 05-01-2024 Xcapsl ctrc rmvl insj io lens prosth w/o ecp [facility] Start: 04-26-2024 End: 04-26-2024 Patient encounter procedure 04/26/2024 11:00 AM EST Office Visit [facility] Ophthalmology [address] [place] [address] CATARACT SURGERY RIGHT THEN LEFT TAO Ophthalmology Comment on above: CATARACT SURGERY RIGHT THEN LEFT TAO Start: 04-26-2024 End: 04-26-2024 Admission to same day surgery center 04/26/2024 10:20 AM EST PAT Pre Anesthesia [address] [place] [address] 1, [place] [place] [address] [place] [address] CATARACT SURGERY RIGHT THEN LEFT TAO Pre Anesthesia Comment on above: CATARACT SURGERY RIGHT THEN LEFT TAO Start: 04-10-2024 End: 04-10-2024 Patient encounter procedure 04/10/2024 3:45 PM EST Office [place] [address] CATARACT SURGERY RIGHT THEN LEFT TAO [employer] [facility] Comment on above: CATARACT SURGERY RIGHT THEN LEFT TAO Start: 03-06-2024 Advance Directive Discussion Advance Directive Discussion [facility] Start: 11-05-2023 Influenza vaccination Influenza Vaccine [facility] Start: 07-20-2023 Subsequent hospital visit by physician 07/20/2023 6:30 AM EDT Hospital Encounter [facility] [address] [place] [address] Jaciel Echavarria, DO [address] [place] [address] [id number] [facility] Start: 07-19-2023 End: 07-18-2024 NM Liver and Biliary ducts and Gallbladder Views NM hepatobiliary system imaging without pharmacologic agent Imaging STAT Abnormal CT of the abdomen Status post laparoscopic cholecystectomy Expected: 07/19/2023, Expires: 07/18/2024 [facility] Work Phone: Comment on above: Expected: 07/19/2023, Expires: Start: 07-18-2023 End: 07-17-2024 NM Liver and Biliary ducts and Gallbladder Views NM hepatobiliary system imaging without pharmacologic agent Imaging Routine Abnormal CT of the abdomen Expected: 07/18/2023, Expires: 07/17/2024 [employer] Work Phone: Comment on above: Expected: 07/18/2023, Expires: Start: 07-18-2023 End: 07-17-2024 RF Guidance for percutaneous replacement of drainage catheter of Biliary ducts and Gallbladder IR biliary drainage catheter internal-external Imaging Routine Abnormal CT of the abdomen Status post laparoscopic cholecystectomy Expected: 07/18/2023, Expires: 07/17/2024 [employer] Work Phone: Comment on above: Expected: 07/18/2023, Expires: Start: 06-04-2020 2nd Dose- COVID Vaccine [facility] Work Phone: Start: 08-23-2011 Fall Risk Screening Fall Risk Screening [facility] Start: 1996 Administration of varicella zoster vaccine Zoster (Shingles) Vaccine (1 of 2) [facility] Start: 1996 Shingrix Vaccine (1 of 2) Shingrix Vaccine (1 of 2) [facility] Start: 08-23-1991 Diabetes Screening Diabetes Screening [facility] Start: 1965 DTaP,Tdap and Td Vaccines (1 - Tdap) DTaP,Tdap and Td Vaccines (1 - Tdap) [facility] Start: 1965 Urine microalbumin profile DTaP,Tdap,Td Vaccine (1 - Tdap) [facility] Start: 1964 Adult BMI Follow Up Plan Adult BMI Follow Up Plan [facility] Start: 1964 Anxiety Screening Anxiety Screening [facility] Start: 1964 Depression Screening Depression Screening [facility] Start: 1964 Hepatitis C screening Hepatitis C Screening [facility] Start: 1958 Depression Screening Depression Screening [facility] Start: 1946 Medicare Annual Wellness Visit Medicare Annual Wellness Visit [facility] [employer] End: 07-17-2024 Comprehensive metabolic 2000 panel - Serum or Plasma Comprehensive metabolic panel Lab Routine Abnormal CT of the abdomen 1 Occurrences starting 07/18/2023 until 07/17/2024 [facility] Comment on above: 1 Occurrences starting 07/18/2023 until 07/17/2024 End: 09-11-2025 CORNEAL TOPOGRAPHY PENTACAM OU (BOTH EYES) CORNEAL TOPOGRAPHY PENTACAM OU (BOTH EYES) [facility] Imaging Routine Combined 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 Combined forms of age-related cataract of right eye 1 Occurrences starting 03/20/2024 until 09/11/2025 [facility] Comment on above: 1 Occurrences starting 03/20/2024 until 09/11/2025 End: 09-11-2025 OCT MACULA CIRRUS OU (BOTH EYES) OCT MACULA CIRRUS OU (BOTH EYES) [facility] Imaging Routine Combined 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 Combined forms of age-related cataract of right eye 1 Occurrences starting 03/20/2024 until 09/11/2025 [facility] Work Phone: Comment on above: 1 Occurrences starting 03/20/2024 until 09/11/2025 Immunizations Immunization Date Immunization Notes Care Provider Lori mims 11-23-2022 influenza virus vaccine, unspecified formulation Lakeisha Jung H[employer]G 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 Work Phone: [facility] 12-14-2021 SARS-CoV-2 (COVID-19 ) [id number] Jaciel HENRY [facility] 06-29-2021 SARS-CoV-2 (COVID-19 ) mRNA BNT-162b2 vax Jaciel HENRY [facility] 01-06-2021 SARS-CoV-2 (COVID-19 ) mRNA-1273 vaccine Jaciel LLOYDL [facility] 06-04-2020 SARS-CoV-2 (COVID-19 ) mRNA-1273 vaccine Jaciel LLOYDL [facility] 05-07-2020 2nd Dose MODERNA COVID-19 Vaccine; Translations: [Moderna COVID-19 Vaccine] Luiz Jimenez [facility] Comment on above: Note: Patient tolera keely well. No signs or symptoms of adverse reactions. Patient waited a minimum of 15 minutes. Payers Date Payer Category Payer Self-pay 2022 Medicare [id number] 2022 Medicare (Managed Care) [employer] [id number] 2011 Unknown 1 - Medicare FQHC CGS PPS [id number] [id number] [id number]. [id number] 1959 Medicare [id number] 1959 Medicare [id number] 1959 Unknown [id number] 2.16.840.1.430917.3.140.1. 30310.5.10.6.3 1946 Unknown [id number] 2.16.840.1.821720.3.579.2. 593 1946 Unknown [id number] 2.16.840.1.114233.3.579.2. 593 1946 Unknown [id number] 2.16.840.1.194513.3.579.2. 593 1946 Unknown [id number] 2.16.840.1.621192.3.579.2. 1286 1946 Unknown [id number] 2.16.840.1.291470.3.579.2. 1286 1946 Unknown [id number] 2.16.840.1.405122.3.579.2. 128 1946 Unknown [id number] 2.16.840.1.017534.3.579.2. 128 1946 Unknown [id number] 2.16.840.1.634948.3.579.2. 128 1946 Unknown [id number] 2.16.840.1.189216.3.579.2. 128 1946 Unknown [id number] 2.16.840.1.233905.3.579.2. 128 1946 Unknown [id number] 2.16.840.1.631349.3.579.2. 72 1946 Unknown [id number] 2.16.840.1.349292.3.579.2. 72 1946 Unknown [id number] 2.16.840.1.122440.3.579.2. 72 1946 Unknown [id number] 2.16.840.1.012195.3.579.2. 72 1946 Unknown [id number] 2.16.840.1.113092.3.579.2. 72 1946 Unknown [id number] 2.16.840.1.147647.3.579.2. 72 1946 Unknown [id number] 2.16.840.1.089011.3.579.2. 72 1946 Unknown [id number] 2.16.840.1.459667.3.579.2. 72 1946 Unknown [id number] 2.16.840.1.297138.3.579.2. 72 Medicare Medicare Outpatient [id number] [id number] Unknown [employer] Health Claims [id number] Unknown [id number] 2.16840.1.154483.3.579.2. 531 Unknown [id number] 2.16840.1.306397.3.579.2. 531 Unknown [id number] 2.16840.1.305830.3.579.2. 531 Social History Date Type Detail Facility Tobacco smoking status Unknown if ever sm oked [facility] Start: 1945 Sex Assigned At Male [facility] Start: 07-11-2023 End: 04-02-2024 Tobacco smoking status Ex-smoker (finding) [facility] [place] Tobacco smoking status Never [facility] Start: 04-02-2024 End: 04-26-2024 Sex Assigned At Male [facility] Start: 01-18-2024 Sex Male (finding) [facility] Start: 03-06-1958 End: 03-06-1983 History of tobacco use Current smoker [facility] Start: 03-06-1957 End: 03-06-1983 History of tobacco use Cigarette Smoker [facility] Start: 04-02-2024 End: 04-26-2024 Cigarettes smoked current (pack per day) - [facility] Start: 06-07-2023 End: 04-02-2024 Tobacco use and exposure Smokeless tobacco non-user [facility] Start: 04-02-2024 End: 05-23-2024 Alcoholic beverage intake Current drinker of alcohol (finding) [facility] Start: 1945 Sex assigned at Not on file [facility] Start: 04-26-2024 Alcohol Comment weekly [facility] Medical Equipment Procedure Code Equipment Code Equipment Origin al Text Equipment Identifier Dates [id number] Clarisa on [employer] - [id number] Start: 05-01-2024 [id number] [facility] - [id number] Start: 05-22-2024 Functional Status Date Assessment Result Facility 02-06-2024 Functional Status N/A [facility] [place] 01-24-2024 Functional Status N/A [facility] 01-10-2024 Functional Status N/A [facility] 11-21-2023 Functional Status N/A [facility] 07-11-2023 Functional Status N/A [facility] Clinical Notes 06-07-2023 to 05-23-2024 Desiree Rooney MD - 05/23/2024 8:36 AM Nanette Torres OD - 05/22/2024 10:20 AM Kellie Escalera COA - 04/26/2024 11:04 AM Tyler Sepulveda APRN.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 - 04/26/2024 10:20 AM EST Note Date & Type Note Facility 05-23-2024 Note HNO ID: [id number] Author: DESIREE ROONEY MD Service: ? Author Type: Physician Type: Progress Notes Filed: 05/23/2024 09:00 Note Text: ASSESSMENT/PLAN: 1. Pseudophakia - ICD9: V43.1, ICD10: Z96.1 (primary diagnosis) - 1 day PO S/P PC IOL Left eye (05/22/2024) Aim: [place] doing well; He is happy with the improvement in his vision. - S/P PC IOL Right eye (05/01/2024) Aim: [place] The patient was instructed to.... - Use Gent Drops in the operative eye 4 times a day for 3 days after surgery, then stop. - Use Prednisolone Acetate Drops in the operative eye 4 times a day for 7 days after surgery and then taper the Prednisolone Acetate over 15 days (decreasing by 1 drop every 5 days). - Continue Prednisolone Acetate Drops in the first operative eye as planned according to the taper schedule Wear the eye shield at night over the operative eye while sleeping, refrain from rubbing or touching the eye, wear dark sunglasses while outside, not get any tap water in the eye, not to swim, not wear any eye makeup (if applicable), and refrain from heavy lifting for a total of two weeks after surgery. Use Artificial Tears four or more times daily as needed, starting 3 days after surgery to alleviate any dry eye symptoms. May trial OTC readers until getting updated glasses. The signs and symptoms of a retinal tear/detachment (flashes, floaters, or change in peripheral vision) were reviewed with the patient as well as the signs and symptoms of infection (decreased vision, red eye, painful eye, or eyelid swelling). Call or return to our office immediately if any of these symptoms are present. Signs and symptoms of posterior capsular opacification were reviewed. Discussed possible eventual need for Yag laser posterior capsulotomy 2. Left CN4 palsy monitor with Dr. Gray Copy of today's visit note was sent to Dr. Gray Return to Dr. Gray within one week for VATA, refraction or sooner as needed Desiree Rooney MD The documentation recorded by the scribe accurately reflects the service I personally performed and the decisions made by me. I have confirmed and edited as necessary the relevant HPI, ophthalmic history, ROS, and the neuro exam findings as obtained by others. I have seen and examined Abigail Washington. I have discussed the case and the management of this patient's care with the Resident/Fellow, if applicable. I also have reviewed and agree with the assessment and plan as stated above and agree with all of its relevant components. Desiree Rooney MD [facility] 05-23-2024 History of Present illness Narrative ASSESSMENT/PLAN: 1. Pseudophakia - ICD9: V43.1, ICD10: Z96.1 (primary diagnosis) - 1 day PO S/P PC IOL Left eye (05/22/2024) Aim: [place] doing well; He is happy with the improvement in his vision. - S/P PC IOL Right eye (05/01/2024) Aim: [place] The patient was instructed to.... - Use Gent Drops in the operative eye 4 times a day for 3 days after surgery, then stop. - Use Prednisolone Acetate Drops in the operative eye 4 times a day for 7 days after surgery and then taper the Prednisolone Acetate over 15 days (decreasing by 1 drop every 5 days). - Continue Prednisolone Acetate Drops in the first operative eye as planned according to the taper schedule Wear the eye shield at night over the operative eye while sleeping, refrain from rubbing or touching the eye, wear dark sunglasses while outside, not get any tap water in the eye, not to swim, not wear any eye makeup (if applicable), and refrain from heavy lifting for a total of two weeks after surgery. Use Artificial Tears four or more times daily as needed, starting 3 days after surgery to alleviate any dry eye symptoms. May trial OTC readers until getting updated glasses. The signs and symptoms of a retinal tear/detachment (flashes, floaters, or change in peripheral vision) were reviewed with the patient as well as the signs and symptoms of infection (decreased vision, red eye, painful eye, or eyelid swelling). Call or return to our office immediately if any of these symptoms are present. Signs and symptoms of posterior capsular opacification were reviewed. Discussed possible eventual need for Yag laser posterior capsulotomy 2. Left CN4 palsy monitor with Dr. Gray Copy of today's visit note was sent to Dr. Gray Return to Dr. Gray within one week for VATA, refraction or sooner as needed Desiree Rooney MD The documentation recorded by the scribe accurately reflects the service I personally performed and the decisions made by me. I have confirmed and edited as necessary the relevant HPI, ophthalmic history, ROS, and the neuro exam findings as obtained by others. I have seen and examined Abigail Washington. I have discussed the case and the management of this patient's care with the Resident/Fellow, if applicable. I also have reviewed and agree with the assessment and plan as stated above and agree with all of its relevant components. Desiree Rooney MD documented in this encounter [facility] 05-22-2024 Note HNO ID: [id number] Author: NANETTE SANTA OD Service: ? Author Type: SHEET METAL SUPERINTENDENT Type: Progress Notes Filed: 05/22/2024 10:22 Note Text: ASSESSMENT/PLAN: 1. Pseudophakia, right eye - ICD9: V43.1, ICD10: Z96.1 (primary diagnosis) Doing well 3 weeks post-op SHOOT for PLANO Comanaging with Dr Isaac Jose gt taper as directed 2. Combined 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 - ICD9: 366.19, ICD10: H25.812 Dr Desiree Rooney Cataract surgery today SHOOT for PLANO 3. 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 Pseudophakia, right eye - ICD9: V43.1, ICD10: Z96.1 (primary diagnosis) Doing well 3 weeks post-op SHOOT for PLANO Comanaging with Dr Isaac Jose gt taper as directed 2. 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 Senior Technical Writer Information Visual Display Associate: ARNEL. Notes Measurements only - see Procedure Record under Scanned Documents for signed results. [facility] 04-26-2024 Note Date of Procedure 04/26/2024. Senior Technical Writer Information Visual Display Associate: ARNEL. [facility] 04-26-2024 Note HNO ID: [id number] Author: KELLIE ALCARAZ COA Service: ? Author Type: Senior Technical Writer Type: Progress Notes Filed: 04/26/2024 11:17 Note Text: Confirmed with patient PLANO Both eyes Drop instructions given Co-manage with Roshan Gray, paper signed AUBRIE Chen April 26, 2024 [facility] 04-26-2024 History of Present illness Narrative Confirmed with patient PLANO Both eyes Drop instructions given Co-manage with Roshan Gray, paper signed AUBRIE Chen April 26, 2024 documented in this encounter [facility] 04-26-2024 History and physical note Images from the original note were not included. [facility] HISTORY AND PHYSICAL EXAMINATION SERVICE DATE: 04/26/2024 SERVICE TIME: 10:02 AM PRIMARY CARE PHYSICIAN: Reva Shannon CNP, 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 REASON FOR VISIT: Abigail Washington is a 78 year old male who is scheduled for at the request of Dr. Desiree Rooney for consultation. My final recommendation will be communicated back to the requesting physician by way of shared medical record or letter. Assessment Hyperlipidemia Assessment: stable on medication Follows with PCP GERD (gastroesophageal reflux disease) Assessment: stable on medication Omeprazole(Prilosec) Jacobs Activity Status Index: METS: Walk indoors, such as around the house (1.75 METs) Do light work around the house, such as dusting or washing dishes (2.70 METs) Take care of self; that is eating, dressing, bathing, using the toilet (2.75 METs) Walk a block or two on level ground (2.75 METs) Do moderate work around the house, such as vacuuming, sweeping floors, or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
[2024-07-16 08:46] LABS: Basophils Percent Auto 0.8 % (0.2-2.0); Eosinophils Absolute Auto 0.1 10^3/uL (0.0-0.7); Eosinophils Percent Auto 3.5 % (0.9-7.0); Hematocrit 46.7 % (42.0-54.0); Hemoglobin 15.1 g/dL (14.0-18.0); Lymphocytes Absolute Auto 1.2 10^3/uL (1.2-3.8); Lymphocytes Percent Auto 33.2 % (20.5-60.0); Mean Corpuscular HGB Conc 32.3 g/dL (29.9-35.2); Mean Corpuscular Hemoglobin 28.8 pg (25.9-34.0); Mean Platelet Volume 9.8 fL (9.5-13.5); Monocytes Absolute Auto 0.3 10^3/uL (0.3-0.8); Monocytes Percent Auto 8.6 % (1.7-12.0); Neutrophils Percent Auto 53.9 % (43.0-75.0); Platelet Count 178 10^3/uL (150-450); Red Blood Count 5.25 10^6/uL (4.70-6.10); Red Cell Distribution Width 12.9 % (11.0-15.0); White Blood Count 3.7 10^3/uL (4.0-11.0)
[2024-07-16 09:04] LABS: Estimated Average Glucose 123 mg/dL; Glycohemoglobin A1C 5.9 % (4.5-6.2)
[2024-07-16 10:08] LABS: Alanine Aminotransferase 33 U/L (16-63); Albumin Globulin Ratio 0.9; Albumin Level 3.5 g/dL (3.4-5.0); Alkaline Phosphatase 169 U/L (46-116); Anion Gap 12.8; Aspartate Amino Transferase 30 U/L (15-37); BUN Creatinine Ratio 18.8; Bilirubin Total 0.6 mg/dL (0.2-1.0); Calcium 8.8 mg/dL (8.5-10.1); Carbon Dioxide 28.5 mmol/L (21.0-32.0); Chloride 106 mmol/L (98-107); Chol HDL Ratio 1.8; Cholesterol 150 mg/dL (<=200); Estimated GFR (African America >60 (>=60 mL/min/1.73m^2); Estimated GFR (Non-African Ame >60 (>=60 mL/min/1.73m^2); Free T3 2.69 pg/mL (2.18-3.98); Globulin 3.7 g/dL; Glucose 104 mg/dL (74-106); HDL Cholesterol 83 mg/dL (40-60); Potassium 4.3 mmol/L (3.5-5.1); Sodium 143 mmol/L (136-145); Thyroid Stimulating Hormone 1.491 uIU/mL (0.358-3.740); Total Protein 7.2 g/dL (6.4-8.2); Triglycerides 66 mg/dL (<=150); Uric Acid 5.5 mg/dL (3.5-7.2); VLDL CHOLESTEROL 13.2 mg/dL
[2024-07-16 10:11] LABS: Prostate Specific Antigen Scrn 2.43 ng/mL (<=4.00)
[2024-07-17 06:07] LABS: Insulin 8.9 uIU/mL (2.6-24.9)
== END 2024-07-16 08:13 | disposition home or self-care (01) ==
LOC: LAB 08:16
PROVIDERS: PCP Nurse Practitioner Family; Visit Provider Nurse Practitioner Family
DX: E78.00 Pure hypercholesterolemia, unspecified (principal); R73.09 Other abnormal glucose; R53.83 Other fatigue; Z12.5 Encounter for screening for malignant neoplasm of prostate
CPT/HCPCS: 36415; 80053; 80061; 83036; 83525; 84436; 84443; 84481; 84550; 85025; G0103

== ENCOUNTER 2024-09-24 08:23 | Outpatient (OUT) | payer MEDICARE, SELFPAY ==
--- OUTSIDE RECORDS SUMMARY | 2024-07-10 06:00 | XMS_ITS ---
Author Organization [facility] [place] Address [address] [place] [address] Care Team Providers Care Fire Extinguisher Mechanic Name Role Phone Reva Ritchie Primary Care Provider [phone] REASON FOR VISIT Blood Pressure Encounters Encounter Location Date Provider Diagnosis [facility] [address] [place] [address] 07/10/2024 Reva Ritchie Plan Of Treatment No Information Progress Notes * Paresh WASHINGTON EDOB: (78 yo M)Acc No.[id number]:07/10/2024 Patient: Chey RICHARD Paresh Marely :1945 A ge:78 Y S ex:Male Address:[address] [place] [id number] * true * Date: Generated for Alberto ramos/Jonathon/eTransmitting on: 0 09/24/2024 08:25 AM EDT
--- OUTSIDE RECORDS SUMMARY | 2024-07-15 05:30 | XMS_ITS ---
Author Organization [facility] [place] Address [address] [place] [address] Care Team Providers Care Senior Recruiter Name Role Phone Reva Ritchie Primary Care Provider [phone] Allergies Allergen (clinical drug ingredient) Drug/Non Drug Allergy documented on EMR Reaction Allergy Type Onset Date Status ofloxacin Ofloxacin headache Drug Allergy Active REASON FOR VISIT blood pressure- patient has been checking it at home- fluctuating, Using a wrist cuff at home, Today first BP reading Rt arm, second in left arm Medications Medication SIG (Take, Route, Fr equency, Duration) Notes Start Date End Date Status Simvastatin 20 MG 1 tablet in the even ing Orally Once a day for 30 days Active Social History Tobacco Use: Social History Observation Description Date Details (start date - stop date) Former Smoker NA - NA Tobacco Use/Smoking Question Answer Notes Patient is a former smoker Vital Signs Weight 155.6 lbs 07/15/2024 Height 67 in 07/15/2024 Blood pressure systolic 132 mm Hg 07/16/19 25 Blood pressure diastolic 88 mm Hg 025 BMI 24.37 kg/m2 07/15/2024 Encounters Encounter Location Date Provider Diagnosis [facility] [address] [place] [address] 07/15/2024 Reva Ritchie High cholesterol E78.00 and Hypertension I10 Assessments Encounter Date Diagnosis (ICD Code) Assessment Notes Treatment Notes Treatment Clinical Notes Section Notes 07/15/2024 High cholesterol (ICD-10 - E78.00) 07/15/2024 Hypertension (ICD-10 - I10) BP home ok continue to monitor Plan Of Treatment Treatment Notes Assessment Notes Hypertension BP home ok continue to monitor Pending Test Test Name Order Date HEMOGLOBIN A1C (GLYCO) 07/15/2024 INSULIN, TOTAL 07/15/2024 LIPID PANEL (CHOL/TRIG/HDL/LDL) 07/16/19 25 URIC ACID 07/15/2024 THYROID PANEL (T4/TSH/FREE T3) PSA, SCREENING 07/15/2024 CMP (COMP MET DIAZ) w/eGFR CKD-EPI 2024 CBC WITH DIFF 07/15/2024 Next Appt Details Follow Up: prn, Reason: Progress Notes * Paresh WASHINGTON EDOB: 7 (78 yo M)Acc No.[id number]:07/15/2024 Progress Note Patient: Paresh ZHANG Provider: Shekhar Ritchie ([facility]), STOCK RAISER :1945 A ge:78 Y S ex:Male Date:07/15/2024 Address:[address] [place], [place] [id number] Check In:09:25 AM ESTCheck O ut:09:53 AM EST Subjective: * Chief Complaints: * 1 . Blood pressure- patient has been checking it at home- fluctuating. 2. Using a wrist cuff at home. 3. Today first BP reading Rt arm, second in left arm. * HPI: G eneral: Patient present to discuss BP readings. He has been taking them at home everyday at 4pm. He states he has no concerns and is aymptomatic. BP reading all show normal perameters. We discussed liiting sodium intkae and regualr excercise as well as a healthy diet. * ROS: E ENT: hearing changes d enies. v isual changes d enies.?swollen glands or neck lumps d enies. s ore throat d enies. n avery congestion?denies. r inging in ears d enies. l ight sensitivity d enies. e ye pain d enies. G eneral/Constitutional: Sweats: D enies. F atigue d enies. S leep problems d enies. F atigue or Weakness d enies. F ever or Chills d enies. ? C ardiovascular: Shortness of Breath w/lying flat d enies. L ightheadedness/dizziness d enies. C hest tightness/ heavy pressure d enies. S welling of legs, ankles, or feet d enies. W aking up with shortness of breath d enies. C hest pain denies. P alpitations d enies. W eight gain d enies. R espiratory: Difficulty breathing d enies. C hest pain d enies.? M usculoskeletal: Back pain d enies. M uscle cramps d enies. W eakness of muscles d enies. M uscle aches d enies. 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 Modified On:07/02/2024 Status:confirmed F41.9 Anxiety Modified On:06/01/2023 Status:confirmed U07.1 COVID-19 Modified On:12/05/2022 Status:confirmed E78.5 Hyperlipidemia Modified On:06/14/2023 Status:confirmed K81.9 Cholecystitis Modified On:06/15/2023 Status:confirmed K76.9 Liver lesion Modified On:06/29/2023 Status:confirmed E78.00 High cholesterol Modified On:07/05/2023 Status:confirmed I10 Hypertension Modified On:07/05/2023 Status:confirmed D72.829 Elevated WBCs Modified On:07/25/2023 Status:confirmed I10 BP (high blood press ure) Modified On:07/25/2023U Status:confirmed K57.90 Diverticulosis Modified On:08/10/2023 Status:confirmed K63.5 Colon polyp Modified On:08/17/2023 Status:confirmed K44.9 Hiatal hernia Modified On:01/16/2024 Status:confirmed * Medical History: 4 Th nerve palsy, left, Fourth nerve palsy. * Surgical History: g allbladder removal 05/27, Colonoscopy 08/09/2023. * Hospitalization/Major Diagno stic Procedure: D enies Past Hospitalization. * Family History: F ather: , diagnosed with Unspecified essential hypertension, Unspecified heart disease. M other: , diagnosed with Diabetes mellitus without mention of complication, type II or unspecified type, not stated as uncontrolled. B rother(s): alive, diagnosed with Diabetes mellitus without mention of complication, type II or unspecified type, not stated as uncontrolled, Unspecified essential hypertension. S ister(s): alive, colon cancer, diagnosed with Colon cancer, Other malignant neoplasm of unspecified site. 2 brother(s) , 1 sister(s) . 2 daughter(s) - healthy. . * Social History: T obacco Use: T obacco Use/Smoking P rodolfo is a f ormer smoker * Medications: T aking Simvastatin 20 MG Tablet 1 tablet in the evening Orally Once a day , Medication List reviewed and reconciled with the patient * Allergies: O floxacin: headache - Allergy. Objective: * Vitals: W t:155.6lbs, Ht: 67 in, BP: sittin/84 mm Hg,sittin/88mm Hg, BMI:24.37Index, Ht-cm: 170.18 cm, Wt-k.58 kg. * Examination: P hysical Exam: GENERAL: w ell developed, well nourished, in no acute distress. HEAD: n ormocephalic/atraumatic. EYES: p upils equal, round and reactive to light, conjunctivae and sclerae normal. MOUTH: m ucous membranes moist, normal oropharynx and posterior pharynx without lesions or exudates, tongue normal, dentition normal. NECK: n marcin supple, no masses or palpable cervical nodes, trachea midline, thyroid without nodules, masses, tenderness, or enlargement. CHEST: n o chest wall deformity, no chest wall tenderness.? LUNGS: n ormal respiratory effort and clear to auscultation, no wheezes, rales, or rhonchi, good air exchange. CARDIO: r egular rate and rhythm, normal S1 and S2, nor murmur, rub, or gallop. PULSES: n ormal capillary refill. MUSCULOSKELETAL: n o deformity or scoliosis noted, normal range of motion, joints normal, no erythema, edema, effusion, or ecchymosis. EXTREMITY: n o clubbing, cyanosis, edema, or deformity with normal ROM in both upper and lower bilateral extremities. NEUROLOGIC: g rossly normal. LYMPH NODES: n o cervical adenopathy, nodes normal. MENTAL STATUS: a lert and oriented x3, normal mood and affect. Assessment: * Assessment: 1. H ypertension - I10 (Primary) 2 . H igh cholesterol - E78.00 ? Plan: * Treatment: 2. H igh cholesterol L AB: HEMOGLOBIN A1C (GLYCO) L AB: INSULIN, TOTAL L AB: LIPID PANEL (CHOL/TRIG/HDL/LDL) L AB: URIC ACID L AB: THYROID PANEL (T4/TSH/FREE T3) L AB: PSA, SCREENING L AB: CMP (COMP MET DIAZ) w/eGFR CKD-EPI L AB: CBC WITH DIFF * Follow Up: p rn * * Electronically signed by Lenore Ritchie , RACHELL, SR. PAYROLL MANAGER.STOCK RAISER.[id number] on 07/16/2024 at 08:11 AM EDT Sign off status: Completed Visit Status: C HK (Check Out) true * Provider: Shekhar Ritchie ([facility]), STOCK RAISER Date: 0 07/15/2024 Generated for Alberto ramos/Jonathon/eTransmitting on: 0 09/24/2024 08:25 AM EDT History and Physical Notes * HPI (History of Present Illness) Category Sub-Category Detail Notes Category Not es General Patient present to discuss BP readings. He has been taking them at home everyday at 4pm. He states he has no concerns and is aymptomatic. BP reading all show normal perameters. We discussed liiting sodium intkae and regualr excercise as well as a healthy diet. Examination Category Sub-Category Detail Notes Category Not es Physical Exam GENERAL: well developed, well nourished, in no acute distress HEAD: normocephalic/atraum atic EYES: pupils equal, round and reactive to light, conjunctivae and sclerae normal MOUTH: mucous membranes shahab st, normal oropharynx and posterior pharynx without lesions or exudates, tongue normal, dentition normal NECK: neck supple, no mass es or palpable cervical nodes, trachea midline, thyroid without nodules, masses, tenderness, or enlargement CHEST: no chest wall deform ity, no chest wall tenderness LUNGS: normal respiratory e ffort and clear to auscultation, no wheezes, rales, or rhonchi, good air exchange CARDIO: regular rate and rhy thm, normal S1 and S2, nor murmur, rub, or gallop PULSES: normal capillary ref ill MUSCULOSKELETAL: no deformity or scol iosis noted, normal range of motion, joints normal, no erythema, edema, effusion, or ecchymosis EXTREMITY: no clubbing, cyanosi s, edema, or deformity with normal ROM in both upper and lower bilateral extremities NEUROLOGIC: grossly normal LYMPH NODES: no cervical adenopat hy, nodes normal MENTAL STATUS: alert and oriented x 3, normal mood and affect
--- OUTSIDE RECORDS SUMMARY | 2024-07-23 09:19 | XMS_ITS ---
Author Organization [facility] [place] Address [address] [place] [address] Care Team Providers Care Ferry Captain Name Role Phone Reva Ritchie Primary Care Provider [phone] REASON FOR VISIT Lab results Encounters Encounter Location Date Provider Diagnosis [facility] [address] [place] [address] 07/23/2024 Reva Ritchie Plan Of Treatment No Information Progress Notes * Paresh [place] EDOB: (78 yo M)Acc No.[id number]:07/23/2024 Patient: Chey RICHARD Praesh Yap :1945 A ge:78 Y S ex:Male Address:[address] [place] [id number] * true * Date: Generated for Alberto ramos/Jonathon/eTransmitting on: 0 09/24/2024 08:25 AM EDT
--- OUTSIDE RECORDS SUMMARY | 2024-09-24 08:25 | XMS_ITS | Clinical Summary ---
Author Organization [facility] Address [address] [place] [address] Care Team Providers Care Switch Box Installer Name Role Phone Unavailable Primary Care Provider Unavailabl e Social History Tobacco Use Types Packs/Day Years Used Date Smoking Tobacco: Never Assessed Sex and Gender Information Value Date Recorded Sex Assigned at Not on file Legal Sex Male 6:50 PM EDT Gender Identity Not on file Sexual Orientation Not on file Plan of Treatment Not on file
--- OUTSIDE RECORDS SUMMARY | 2024-09-24 08:25 | XMS_ITS | Clinical Summary ---
Author Organization [facility] Address [address] [place] [address] Phone Care Team Providers Care Video Editing Internship Name Role Phone Unavailable Primary Care Provider Unavailabl e Social History Tobacco Use Types Packs/Day Years Used Date Smoking Tobacco: Never Assessed Sex and Gender Information Value Date Recorded Sex Assigned at Not on file Legal Sex Male 11:10 AM EST Gender Identity Not on file Sexual Orientation Not on file Plan of Treatment Not on file
--- OUTSIDE RECORDS SUMMARY | 2024-09-24 08:25 | XMS_ITS | Clinical Summary ---
Author Organization [employer] [facility] tem Address [id number] [place] [address] Care Team Providers Care Manager Marketing Communication Name Role Phone Reva Ritchie LINEMAN-ABRASIVE GRADER Primary Care Provider Allergies No known active allergies Medications simvastatin (ZOCOR) 20 mg tablet Take 1 tablet (20 mg total) by mouth in the morning. Active naproxen sodium (ALEVE) 220 mg tablet Take 1 tablet (220 mg total) by mouth every 4 (four) hours as needed for pain. Active Active Problems No known active problems Family History Medical History Relation Name Comments Diabetes Brother Heart disease Father Diabetes Mother Hypertension Mother Rectal cancer Sister Relation Name Status Comments Brother Father Mother Sister Alive Social History Tobacco Use Types Packs/Day Years Used Date Smoking Tobacco: Former Cigarettes 0.5 25 1 959 - 1983 Smokeless Tobacco: Never Tobacco Cessation:Counseling Given: Not Answered Alcohol Use Standard Drinks/Week Comments Yes 4 (1 standard drink = 0.6 oz pur e alcohol) Childcare Answer Date Recorded Childcare Unknown 08/15/2018 Employment Answer Date Recorded Employment Unknown 08/15/2018 Hunger Screening Answer Date Recorded Within the past 12 months we worried whether our food would run out before we got money to buy more. Never True 06/07/2023 Food Insecurity - Inability Not on file 05/2023 Sex and Gender Information Value Date Recorded Sex Assigned at Not on file Legal Sex Male 11:37 AM EDT Gender Identity Not on file Sexual Orientation Not on file Last Filed Vital Signs Vital Sign Reading Time Taken Comments Blood Pressure 136/86 07/20/2023 11:03 AM EDT Pulse 77 07/20/2023 11:03 AM EDT Temperature - - Respiratory Rate 18 07/20/2023 11:03 AM EDT Oxygen Saturation 100% 07/20/2023 11:03 AM EDT Inhaled Oxygen Concentration - - Weight 68 kg (150 lb) 07/20/2023 10:26 AM EDT Height 170.2 cm (5' 7 ) 07/20/2023 10:26 AM EDT Body Mass Index 23.49 07/20/2023 10:26 AM EDT Plan of Treatment Health Maintenance Due Date Last Done Comments Depression Screening 1957 DTaP,Tdap and Td Vaccines (1 - Tdap) 1965 Zoster (Shingles) Vaccine (1 of 2) 1996 Fall Risk Screening 08/23/2011 COVID-19 Vaccine (2023-2 5 season) 2023 11/30/2022, 12/14/2021, 06/29/2021, Additional history exists Tobacco Screening 07/19/2024 07/20/2023 Influenza Vaccine 11/04/2024 11/23/2022, , 12/23/2020, Additional history exists Medical Devices Not on file Insurance [employer] MEDICARE Care Teams Manager Marketing Communication Relationship Specialty Start Date End Date Reva Ritchie, LINEMAN-ABRASIVE GRADER [address] [facility] [place] [id number] PCP - General Family Medicine 06/01/23
--- OUTSIDE RECORDS SUMMARY | 2024-09-24 08:25 | XMS_ITS | Encounter Summary ---
Author Organization [facility] Address [address] [place] [address] Care Team Providers Care Lean Process Deployment Consultant Name Role Phone Reva Ritchie Dahlia DISTRICT TRAFFIC CHIEF Primary Care Provider + Source Comments In the event this information is protected by the Federal Confidentiality of Alcohol and Drug AbusePatient Records regulations: The Federal rules restrict any use of the information to criminally investigate or prosecute any alcohol or drug abuse patient.[facility] Reason for Visit * Reason Comments Refill Request Encounter Details Date Type Department Care Team (Late st Contact Info) Description 06/24/2024 Refill Ophthalmology [address] [place] [address] Leah Rooney MD [address] [place] [address] Refill Request Social History Tobacco Use Types Packs/Day Years Used Date Smoking Tobacco: Former Cigarettes 0.5 40.5 S tarted: 04/02/1984 Smokeless Tobacco: Never Alcohol Use Standard Drinks/Week Comments Yes 1 (1 standard drink = 0.6 oz pur e alcohol) weekly Area Deprivation Index Answer Date Bandar rded National Score (1-100), lowe r number is lower risk 78 04/26/2024 State Score (1-10), lower number is lower risk 6 04/26/2024 Data from: https://www.neighborhoodatlas.medicine.[facility].ed u/. Last address used for calculation [address] [address] 04/26/2024 Sex and Gender Information Value Date Recorded Sex Assigned at Not on file Legal Sex Male 2:25 PM EST Gender Identity Not on file Sexual Orientation Not on file documented as of this encounter Plan of Treatment Not on file documented as of this encounter Visit Diagnoses Not on filedocumented in this encounter Care Teams Lean Process Deployment Consultant Relationship Specialty Start Date End Date Reva Ritchie CNP [address] [place] [address] PCP - General Internal Medicine 04/10/24 documented as of this encounter
--- OUTSIDE RECORDS SUMMARY | 2024-09-24 08:25 | XMS_ITS | Clinical Summary ---
Author Organization [facility] Address [address] [facility], [address] [place] [address] Care Team Providers Care Student Worker Name Role Phone Unavailable Primary Care Provider Unavailabl e Allergies No known active allergies Medications aspirin 81 MG tablet Take 81 mg by mouth daily Active simvastatin (ZOCOR) 20 MG tablet Take 20 mg by mouth nightly Active Social History Tobacco Use Types Packs/Day Years Used Date Smoking Tobacco: Never Assessed Sex and Gender Information Value Date Recorded Sex Assigned at Not on file Legal Sex Male 4:17 PM EST Gender Identity Not on file Sexual Orientation Not on file Last Filed Vital Signs Vital Sign Reading Time Taken Comments Blood Pressure 139/98 06/29/2016 10:17 PM EDT Pulse 103 06/29/2016 6:17 PM EDT Temperature 36.6 C (97.9 F) 06/29/2016 6:17 PM EDT Respiratory Rate 16 06/29/2016 6:17 PM EDT Oxygen Saturation 97% 06/29/2016 6:17 PM EDT Inhaled Oxygen Concentration - - Weight 72.6 kg (160 lb) 06/29/2016 7:35 PM EDT Height - - Body Mass Index - - Plan of Treatment Not on file Insurance MEDICARE [place] [id number] [employer] MEDICARE SUPP
--- OUTSIDE RECORDS SUMMARY | 2024-09-24 08:25 | XMS_ITS | Patient Health Record ---
Author Organization [facility] in [place] Address [address] [place] [address] Care Team Providers Care Airfield Engineer Officer Name Role Phone Reva Ritchie Primary Care Provider Allergies Allergen (clinical drug ingredient) Drug/Non Drug Allergy documented on EMR Reaction Allergy Type Onset Date Status ofloxacin Ofloxacin headache Drug Allergy Active Results Component Value Reference Range Notes CT abdomen pelvis w con Reviewed date:01/16/2024 08:48:55 AM Interpretation: Performing Lab: Notes/Report: Source Facility: [place] [address] CT Scan Report Signed Patient: ABIGAIL WASHINGTON MR#: [id number] : 1945 Acct:[id number] Age/Sex: 78 / M ADM Date: 01/15/24 Loc: LAB Attending Dr: Jaciel Brandt M.D. Ordering Physician: Jaciel Brandt M.D. Date of Service: 01/15/24 Procedure(s): CT abdomen pelvis w con Accession Number(s): [id number] cc: REVA RITCHIE [place] [address] Patient Name: ABIGAIL WASHINGTON MRN: [id number] date: 1945 Sex: M Assigned Patient Location: LAB Current Patient Location: Accession/Order Number: [id number] Exam Date: 01/15/2024 09:10 Report Date: 01/16/2024 07:31 At the request of: JACIEL BRANDT Procedure: CT abdomen pelvis w con EXAM: CT abdomen pelvis w con HISTORY: Recurrent umbilical hernia COMPARISON: CT abdomen and pelvis of 07/15/2023. TECHNIQUE: Following intravenous administration of 100 cc of Omnipaque 300, axial soft tissue windows of the abdomen and pelvis were performed with coronal and sagittal reformats. CT dose reduction technique was used including Automated Exposure Control. Findings: Partially visualized large hiatal hernia. ABDOMEN: The visualized portions of the liver are unremarkable. The spleen, pancreas, and adrenal glands are unremarkable. No renal stones or collecting system dilatation. Bilateral renal cysts. The largest is within the right kidney measuring approximately 2.6 cm. The visualized portions of the bilateral ureters are nondilated. There are colonic diverticula. Otherwise, the bowel is unremarkable without evidence of wall thickening or obstruction. The appendix is nondilated. The aorta is normal caliber. Mild atherosclerotic disease. No enlarged abdominal lymph nodes or free abdominal fluid. Small to moderate sized umbilicus hernia containing fat and nonobstructed small bowel. Pelvis: The prostate is enlarged and exerts mild mass effect upon the posterior bladder wall. Otherwise, the bladder is unremarkable. No calculi. No enlarged pelvic lymph nodes or free pelvic fluid. No aggressive sclerotic or lytic osseous lesions. Mild multilevel degenerative thoracic spondylosis. CT/CT abdomen pelvis w con IMPRESSION: 1. Hnfqy-qt-dfyxqctk umbilicus hernia. 2. Partially visualized large hiatal hernia. 3. Other nonemergent findings, as described above. Electronically authenticated by: FARHANA RUDD Date: 01/16/2024 07:31 Dictated By: Farhana Rudd M.D. Signed By: 01/16/24 0733 DD/ 0731 TD/TT: Dressmaker Or Tailor: [place] [address] CT Scan Report Signed Patient: JAQUELINE WASHINGTON MR#: [id number] : 1945 Acct:[id number] Age/Sex: 78 / M ADM Date: 01/15/24 Loc: LAB Attending Dr: Armin Brandt M.D. Ordering Physician: Jaciel Brandt M.D. Date of Service: 01/15/24 Procedure(s): CT abd omen pelvis w con Accession Number(s): [id number] cc: REVA RITCHIE [facility] [address] [place] [id number] Patient Name: ABIGAIL WASHINGTON MRN: [id number] date: 1945 Sex: M Assigned Patient Location: LAB Current Patient Location: Accession/Order Numb er: [id number] Exam Date: 09:10 Report Date: 01/16/2024 07:31 At the request of: JACIEL BRANDT Procedure: CT abdome n pelvis w con EXAM: CT abdomen pel vis w con HISTORY: Recurrent umbilical hernia COMPARISON: CT abdom en and pelvis of 07/15/2023. TECHNIQUE: Following intravenous administration of 100 cc of Omnipaque 300, axial soft tissue wi ndows of the abdomen and pelvis were performed with coronal and sagittal reforma ts. CT dose reduction technique was used including Automated Exposure Control. Findings: Partially visualized large hiatal hernia. ABDOMEN: The visualized porti ons of the liver are unremarkable. The spleen, pancreas, and adrenal glands a re unremarkable. No renal stones or collecting system dilatation. Bilateral renal cysts. The largest is within th e right kidney measuring approximately 2.6 cm. The visualized portions of the bilateral ureters are nondilated. There are colonic diverticula. Otherwise, the bowel is unremarkable without evidence of wall thickening or obstruction. The appendix is nondilated. The aorta is normal caliber. Mild atherosclerotic disease. No enlarged abdomina l lymph nodes or free abdominal fluid. Small to moderate si zed umbilicus hernia containing fat and nonobstructed small bowel. Pelvis: The prostate is enla rged and exerts mild mass effect upon the posterior bladder wall. Otherwise, the bladder is unremarkable. No calculi. No enlarged pelvic l ymph nodes or free pelvic fluid. No aggressive sclero tic or lytic osseous lesions. Mild multilevel degenerative thoracic spondylosis. C T/CT abdomen pelvis w con IMPRESSION: 1. Sycmd-ko-kmcgvbnm umbilicus hernia. 2. Partially visuali zed large hiatal hernia. 3. Other nonemergent findings, as described above. Electronically authenticated by: FARHANA URDD Date: 01/16/2024 07:31 Dictated By: Farhana Rudd M.D. Signed By: 01/16/2433 DD/ TD/TT: Dressmaker Or Tailor: CBC AUTO DIFF Reviewed date:07/16/2024 01:40:23 PM Interpretation: Performing Lab: Notes/Report: [facility] , White Blood Count 3.7 4.0-11.0 10 3/uL Red Blood Count 5.25 4.70-6.10 10 6/uL Hemoglobin 15.1 14.0-18.0 g/dL Hematocrit 46.7 42.0-54.0 % Mean Corpuscular Volume 89.0 80.0-94.0 fL Mean Corpuscular Hemoglobin 28.8 25.9-34.0 pg Mean Corpuscular HGB Conc 32.3 29.9-35.2 g/dL Red Cell Distribution Width 12.9 11.0-15.0 % Platelet Count 178 150-450 10 3/uL Mean Platelet Volume 9.8 9.5-13.5 fL Neutrophils Percent Auto 53.9 43.0-75.0 % Lymphocytes Percent Auto 33.2 20.5-60.0 % Monocytes Percent Auto 8.6 1.7-12.0 % Eosinophils Percent Auto 3.5 0.9-7.0 % Basophils Percent Auto 0.8 0.2-2.0 % Immature Granulocytes Pct Auto 0.0 0.0-0.5 % Neutrophils Absolute Auto 2.0 1.4-6.5 10 3/uL Lymphocytes Absolute Auto 1.2 1.2-3.8 10 3/uL Monocytes Absolute Auto 0.3 0.3-0.8 10 3/uL Eosinophils Absolute Auto 0.1 0.0-0.7 10 3/uL Basophils Absolute Auto 0.0 0.0-0.1 10 3/uL Immature Granulocytes Abs Auto 0.00 0.00-0.03 10 3/uL Performing Lab: see note ML - [facility] LB GLYCOHEMOGLOBIN A1C Reviewed date:07/16/2024 01:40:23 PM Interpretation: Performing Lab: Notes/Report: [facility] , Glycohemoglobin A1C 5.9 4.5-6.2 % ADA THERAPEUTIC TARGET < 7.0 > 7.0 ADA RECOMMENDED LIMIT 4.0 - 6.0 ACTION SUGGESTED Estimated Average Glucose 123 Performing Lab: see note ML - [facility] LB LIPID PROFILE Reviewed date:07/16/2024 01:40:23 PM Interpretation: Performing Lab: Notes/Report: [facility] , Triglycerides 66 <=150 mg/dL Cholesterol 150 <=200 mg/dL HDL Cholesterol 83 40-60 mg/dL <40 mg/dl - HIGH CARDIOVASCULAR RISK > or =60 mg/dl - LOW CARDIOVASCULAR RISK LDL Cholesterol Calculated 54.0 >190 mg/dl VERY HIGH 160-189 mg/dl HIGH 100-129 mg/dl NEAR OR ABOVE OPTIMAL <100 mg/dl OPTIMAL 130-159 mg/dl BORDERLINE HIGH VLDL CHOLESTEROL 13.2 Chol HDL Ratio 1.8 4.4 - 7.1 AVERAGE RISK >11.0 HIGH RISK 7.1 - 11.0 MODERATE RISK 3.3 - 4.4 LOW RISK Performing Lab: see note ML - [facility] PROF 14(COMP METB) Reviewed date:07/16/2024 01:40:23 PM Interpretation: Performing Lab: Notes/Report: [facility] , Sodium 143 136-145 mmol/L Potassium 4.3 3.5-5.1 mmol/L Chloride 106 98-107 mmol/L Carbon Dioxide 28.5 21.0-32.0 mmol/L Anion Gap 12.8 Glucose 104 74-106 mg/dL Blood Urea Nitrogen 19.0 7.0-18.0 mg/dL Creatinine 1.01 0.70-1.30 mg/dL Estimated GFR ( Angie >60 >=60 mL/min/1.73m 2 Estimated GFR (Non- Elizabeth >60 >=60 mL/min/1.73m 2 BUN Creatinine Ratio 18.8 Calcium 8.8 8.5-10.1 mg/dL Bilirubin Total 0.6 0.2-1.0 mg/dL Aspartate Amino Transferase 30 15-37 U/L Alanine Aminotransferase 33 16-63 U/L Alkaline Phosphatase 169 46-116 U/L Total Protein 7.2 6.4-8.2 g/dL Albumin Level 3.5 3.4-5.0 g/dL Globulin 3.7 Albumin Globulin Ratio 0.9 Performing Lab: see note ML - [facility] PSA SCREENING Reviewed date:07/16/2024 01:40:23 PM Interpretation: Performing Lab: Notes/Report: [facility] , Prostate Specific Antigen Scrn 2.43 <=4.00 ng/mL Performing Lab: see note ML - [facility] LB T4 Reviewed date:07/16/2024 01:40:23 PM Interpretation: Performing Lab: Notes/Report: [facility] , T4 Thyroxine 6.00 4.50-12.10 ug/dL Performing Lab: see note ML - [facility] LB TSH Reviewed date:07/16/2024 01:40:23 PM Interpretation: Performing Lab: Notes/Report: [facility] , Thyroid Stimulating Hormone 1.491 0.358-3.740 uIU/mL Performing Lab: see note ML - [facility] LB URIC ACID SERUM Reviewed date:07/16/2024 01:40:23 PM Interpretation: Performing Lab: Notes/Report: [facility] , Uric Acid 5.5 3.5-7.2 mg/dL Performing Lab: see note ML - [facility] INSULIN Reviewed date:07/17/2024 08:25:58 AM Interpretation: Performing Lab: Notes/Report: [facility] , Insulin 8.9 2.6-24.9 uIU/mL Performed at: - [facility] [place] Sugar Trucker: Jose Luis Garcia PhD, Phone: [phone] [address] [phone] Performing Lab: see note - [facility] LB FREE T3 Reviewed date:07/16/2024 01:40:23 PM Interpretation: Performing Lab: Notes/Report: [facility] , Free T3 2.69 2.18-3.98 pg/mL Performing Lab: see note ML - [facility] LB PROF CHEM 8 (BAS METB) Reviewed date:01/15/2024 08:07:13 AM Interpretation: Performing Lab: Notes/Report: [facility] , Sodium 144 136-145 mmol/L Potassium 4.5 3.5-5.1 mmol/L Chloride 107 98-107 mmol/L Carbon Dioxide 28.4 21.0-32.0 mmol/L Anion Gap 13.1 Glucose 111 74-106 mg/dL Blood Urea Nitrogen 26.0 7.0-18.0 mg/dL Creatinine 1.13 0.70-1.30 mg/dL Estimated GFR ( Angie >60 >=60 mL/min/1.73m 2 Estimated GFR (Non- Elizabeth >60 >=60 mL/min/1.73m 2 BUN Creatinine Ratio 23.0 Calcium 8.8 8.5-10.1 mg/dL Performing Lab: see note ML - [facility] LB LIVER PROFILE Reviewed date:01/15/2024 10:23:48 AM Interpretation: Performing Lab: Notes/Report: [facility] , Bilirubin Total 0.8 0.2-1.0 mg/dL Bilirubin Direct 0.2 0.0-0.2 mg/dL Aspartate Amino Transferase 28 15-37 U/L Alanine Aminotransferase 24 16-63 U/L Alkaline Phosphatase 179 46-116 U/L Total Protein 7.3 6.4-8.2 g/dL Albumin Level 3.5 3.4-5.0 g/dL Globulin 3.8 Albumin Globulin Ratio 0.9 Performing Lab: see note ML - [facility] LB CBC AUTO DIFF Reviewed date:01/15/2024 08:06:52 AM Interpretation: Performing Lab: Notes/Report: [facility] , White Blood Count 4.4 4.0-11.0 10 3/uL Red Blood Count 5.37 4.70-6.10 10 6/uL Hemoglobin 15.4 14.0-18.0 g/dL Hematocrit 47.2 42.0-54.0 % Mean Corpuscular Volume 87.9 80.0-94.0 fL Mean Corpuscular Hemoglobin 28.7 25.9-34.0 pg Mean Corpuscular HGB Conc 32.6 29.9-35.2 g/dL Red Cell Distribution Width 13.6 11.0-15.0 % Platelet Count 210 150-450 10 3/uL Mean Platelet Volume 9.7 9.5-13.5 fL Neutrophils Percent Auto 51.3 43.0-75.0 % Lymphocytes Percent Auto 32.9 20.5-60.0 % Monocytes Percent Auto 8.8 1.7-12.0 % Eosinophils Percent Auto 6.3 0.9-7.0 % Basophils Percent Auto 0.7 0.2-2.0 % Immature Granulocytes Pct Auto 0.0 0.0-0.5 % Neutrophils Absolute Auto 2.3 1.4-6.5 10 3/uL Lymphocytes Absolute Auto 1.5 1.2-3.8 10 3/uL Monocytes Absolute Auto 0.4 0.3-0.8 10 3/uL Eosinophils Absolute Auto 0.3 0.0-0.7 10 3/uL Basophils Absolute Auto 0.0 0.0-0.1 10 3/uL Immature Granulocytes Abs Auto 0.00 0.00-0.03 10 3/uL Performing Lab: see note ML - [facility] LB ECG 12 lead Reviewed date:01/04/2024 08:15:10 AM Interpretation: Performing Lab: Notes/Report: Source Facility: [place] [address] [place] [address] Electrocardiograph Report Signed Patient: ABIGAIL WASHINGTON MR#: [id number] : 1945 Acct:[id number] Age/Sex: 78 / M ADM Date: 01/03/24 Loc: PST Attending Dr: Jaciel Brandt M.D. Ordering Physician: Jaciel Brandt M.D. Date of Service: 01/03/24 Procedure(s): ECG 12 lead Accession Number(s): [id number] cc: [facility] Test Date: 2024-01-03 Pat Name: ABIGAIL WASHINGTON Department: Room: - Gender: Male Clinical Science Liaison: : 1945 Requested By: JACIEL BRANDT Order Number: [id number] Reading MD: PATRIC WHITE Measurements Intervals Russell Rate: 54 P: 49 SC: 176 QRS: 0 QRSD: 97 T: 24 QT: 420 QTc: 401 Interpretive Statements SINUS BRADYCARDIA Compared to ECG 05/23/2023 19:04:22 Sinus rhythm no longer present Electronically Signed On 01-03-2024 23:25:17 EDT by PATRIC WHITE Dictated By: Patric White D.O. Signed By: 01/03/245 DD/ 1047 TD/TT: Dressmaker Or Tailor: [place] [address] Electrocardiograph Report Signed Patient: JAQUELINE WASHINGTON MR#: [id number] : 1945 Acct:[id number] Age/Sex: 78 / M ADM Date: 01/03/24 Loc: PST Attending Dr: Armin Brandt M.D. Ordering Physician: Jaciel Brandt M.D. Date of Service: 01/03/24 Procedure(s): ECG 12 lead Accession Number(s): [id number] cc: [facility] Test Date: 2024-01-03 Pat Name: ABIGAIL GARCIA Department: 10 Room: - Gender: Male Clinical Science Liaison: : 1945 Requ ested By: JACIEL BRANDT Order Number: [id number] Reading MD: PATRIC WHITE Measurements Intervals Russell Rate: 54 P: 49 SC: 176 QRS: 0 QRSD: 97 T: 24 QT: 420 QTc: 401 Interpretive Statements SINUS BRADYCARDIA Compared to ECG 05/23/2023 19:04:22 Sinus rhythm no long er present Electronically Toña d On 01-03-2024 23:25:17 EDT by PATRIC WHITE Dictated By: Patric White D.O. Signed By: 01/03/24 8165 DD/ 1047 TD/TT: Dressmaker Or Tailor: Reason For Referral Reason umbilical hernia Diagnosis 1 Umbilical hernia (K4 2.9) Referral Organization [facility] Referring Provider First Name Reva Referring Provider Last Name Erma Referring Provider Speciality Family Med neda Referred Provider Jaciel Brandt Referred Provider Specialty General Surg johann Referral Priority Routine Medications Medication SIG (Take, Route, Fr equency, Duration) Notes Start Date End Date Status Simvastatin 20 MG TAKE ONE TABLET BY M OUTH EVERY EVENING for 90 Active Social History Tobacco Use: Social History Observation Description Date Details (start date - stop date) Former Smoker NA - NA Tobacco Use/Smoking Question Answer Notes Patient is a former smoker Alcohol Screen (Audit-C) Question Answer Notes Did you have a drink contain ing alcohol in the past year? Yes How often did you have 6 or more drinks on one occasion in the past year? Never (0 point) How many drinks did you have on a typical day when you were drinking in the past year? 1 or 2 drinks (0 point) How often did you have a dri nk containing alcohol in the past year? Monthly (2 points) Points 2 Interpretation Negative AUDIT-C (Standard) Question Answer Notes Did you have a drink containing alcohol in the p ast year? No Points 0 Interpretation Negative Problems Problem Type SNOMED Code ICD Code Onset Dates Problem Status W/U Status Risk Notes Problem Hyperlipidemia (07686623) Hyperlipidemia (E78.5) Active confirmed Problem Hypertension (41239849) Hypertension (I10) Active confirmed Problem Anxiety (49333035) Anxiety (F41.9) Active confirmed Problem Hiatal hernia (87770313) Hiatal hernia (K44.9) Active confirmed Problem Diverticular disease of colon (850139780) Diverticulosis (K57.90) Active confirmed Problem Cholecystitis (35079353) Cholecystitis (K81.9) Active confirmed Problem Polyp colon (32931706) Colon polyp (K63.5) Active confirmed Problem Lesion of liver (962735615) Liver lesion (K76.9) Active confirmed Problem Leukocytosis (142150427) Elevated WBCs (D72.829) Active confirmed Problem Essential hypertension (97662813) BP (high blood pressure) (I10) Active confirmed Problem High cholesterol (51364836) High cholesterol (E78.00) Active confirmed Problem 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 Problem 115650948 COVID-19 (U07.1) Active confirmed Vital Signs Blood pressure diastolic 88 mm Hg 07/15/2024 Height 67 in 07/15/2024 Blood pressure systolic 132 mm Hg 07/15/2024 Weight 155.6 lbs 07/15/2024 BMI 24.37 kg/m2 07/15/2024 Encounters Encounter Location Date Provider Diagnosis [facility] [address] [place] [address] 10/23/2023 Reva Ritchie Abdominal hernia K46 .9 [facility] [address] [place] [address] 11/10/2023 Reva Ritchie Umbilical hernia K42 .9 [facility] [address] [place] [address] 01/08/2024 Revajaguar Ritchie Abdominal hernia K46 .9 [facility] [address] [place] [address] 07/02/2024 Reva Erma Fourth nerve palsy H49.10 and Hypertension I10 [facility] [address] [place] [facility] [place] [address] 07/15/2024 Reva Ritchie High cholesterol E78.00 and Hypertension I10 [facility] [address] [facility] [place] [address] 10/02/2023 Reva Ritchie [facility] [address] [facility] [place] [address] 01/16/2024 Reva Ritchie [facility] [address] [place] [facility] [place] [address] 07/10/2024 Reva Ritchie [facility] [address] [place] [facility] [place] [address] 07/23/2024 Reva Ritchie Assessments Encounter Date Diagnosis (ICD Code) Assessment Notes Treatment Notes Treatment Clinical Notes Section Notes 10/23/2023 Abdominal hernia (ICD-10 - K46.9) wt loss may help abdominal binder continue monitor, discussed concerning signs fu as needed 11/10/2023 Umbilical hernia (ICD-10 - K42.9) requesting surgical consult if sx fix, does not want until January working on wt loss, cut out candy 01/08/2024 Abdominal hernia (ICD-10 - K46.9) has fu Nil Wed will leave imaging to surgeon fu here as needed 07/02/2024 Fourth nerve palsy (ICD-10 - H49.10) Dx opthamologist has fu neurology in couple months for 07/15/2024 Hypertension (ICD-10 - I10) BP home ok continue to monitor 07/15/2024 High cholesterol (ICD-10 - E78.00) 07/02/2024 Hypertension (ICD-10 - I10) continue to monitor wants to work on lifestyle changes 01/08/2024 Other discuss possible inguinal hernias with Dr Bai Plan Of Treatment Pending Test Test Name Order Date CMP (COMPLETE METABOLIC PANEL) HEMOGLOBIN A1C (GLYCO) 06/01/2023 HEMOGLOBIN A1C (GLYCO) 07/15/2024 INSULIN, TOTAL 07/15/2024 INSULIN, TOTAL 06/01/2023 LIPID PANEL (CHOL/TRIG/HDL/LDL) 07/16/19 25 LIPID PANEL (CHOL/TRIG/HDL/LDL) 06/01/19 CBC WITH DIFF 06/01/2023 PSA, PROSTATE-SPECIFIC ANTIGEN 4 URIC ACID 06/01/2023 URIC ACID 07/15/2024 COMPREHENSIVE METABOLIC PROFILE WITH GFR 06/15/2023 CT ABD and PELV WO W CON 06/27/2023 THYROID PANEL (T4/TSH/FREE T3) 5 THYROID PANEL (T4/TSH/FREE T3) 4 THYROID PANEL (T4/TSH/FREE T3) 4 Free PSA 06/19/2023 PSA Total+% Free 06/19/2023 PSA Total+% Free 06/15/2023 PSA, SCREENING 07/15/2024 PSA, SCREENING 06/14/2023 US abdomen limited 06/16/2023 CMP (COMP MET DIAZ) w/eGFR CKD-EPI 2024 CBC WITH DIFF 07/15/2024 Insurance Providers Payer Name Payer Address Payer Phone Subscriber Number Group Number Insured Name Patient Relationship to Insured Coverage Start Date Coverage End Date [employer] MED[employer]ARE [address] [place], [place] [id number] Abigail [place] Self - patient is the insured 3 Medical (General) History Medical History History ICD Code 4Th nerve palsy, left H49.12 Fourth nerve palsy H49.10 Surgical History Surgery Date(Month/Year) gallbladder removal 05/27 Colonoscopy 08/09/2023
--- OUTSIDE RECORDS SUMMARY | 2024-09-24 08:26 | XMS_ITS | Clinical Summary ---
Author Organization [facility] Address [address] [place] [id number] Care Team Providers Care Marketing Automation Analyst Name Role Phone Reva Ritchie SYNTHETIC CHEMIST Primary Care Provider [phone] Allergies No known active allergies Medications simvastatin (ZOCOR) 20 mg tablet Take 20 mg by mouth. 4 Active naproxen sodium (ANAPROX) 220 mg tablet Take 220 mg by mouth every 4 hours as needed (prn). Active Omeprazole Magnesium (PRILOSEC OTC) 20 mg tablet Take 20 mg by mouth. 4 Active prednisoLONE acetate (PRED FORTE) 1 % ophthalmic suspension Use one drop in operative eye as directed by Dr. Rooney starting tomorrow. 5 Active prednisoLONE acetate (PRED FORTE) 1 % ophthalmic suspension Use one drop in operative eye as directed by Dr. Rooney starting tomorrow. 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 Resolved Problems Problem Noted Date Diagnosed Date Resolved Date Combined forms of age-relate d cataract of right eye 03/29/2024 05/22/2024 Combined forms of age-relate d cataract of left eye 03/29/2024 05/23/2024 Family History Medical History Relation Comments Diabetes Brother Heart Father Diabetes Mother Hypertension Mother Cancer Sister Amblyopia No Family History Blindness No Family History Cataract No Family History Detached Retina No Family History Glaucoma No Family History Macular Degen No Family History Strabismus No Family History Relation Status Comments Brother Father Mother Sister Social History Tobacco Use Types Packs/Day Years Used Date Smoking Tobacco: Former Cigarettes 0.5 40.5 S tarted: 04/02/1984 Smokeless Tobacco: Never Tobacco Cessation:Counseling Given: Not Answered Alcohol Use Standard Drinks/Week Comments Yes 1 (1 standard drink = 0.6 oz pur e alcohol) weekly Area Deprivation Index Answer Date Bandar rded National Score (1-100), lowe r number is lower risk 78 04/26/2024 State Score (1-10), lower number is lower risk 6 04/26/2024 Data from: https://www.neighborhoodatlas.[facility].ed u/. Last address used for calculation [address] 04/26/2024 Sex and Gender Information Value Date Recorded Sex Assigned at Not on file Legal Sex Male 2:25 PM EST Gender Identity Not on file Sexual Orientation Not on file Last Filed Vital Signs Vital Sign Reading Time Taken Comments Blood Pressure 155/92 05/22/2024 12:00 PM EDT Pulse 70 05/22/2024 12:00 PM EDT Temperature 36.6 C (97.9 F) 05/22/2024 11:58 AM EDT Respiratory Rate 14 05/22/2024 12:00 PM EDT Oxygen Saturation 95% 05/22/2024 12:00 PM EDT Inhaled Oxygen Concentration - - Weight 74 kg (163 lb 2.3 oz) 04/26/2024 10:05 AM EST Height 170.2 cm (5' 7 ) 04/26/2024 10:05 AM EST Body Mass Index 25.55 04/26/2024 10:05 AM EST Plan of Treatment Health Maintenance Due Date Last Done Comments Anxiety Screening 1963 Depression Screening 1963 Hepatitis C Screening 1963 DTaP,Tdap,Td Vaccine (1 - Tdap) 1965 Shingrix Vaccine (1 of 2) 1996 Advance Directive Discussion 03/06/2024 Medicare Advantage Annual We llness Visit 03/06/2024 Covid-19 Vaccine (8 - 2023-2 5 season) 2024 11/07/2023, 11/30/2022, 12/14/2021, Additional history exists Influenza Vaccine (#1) 2024 , 11/23/2022, 11/15/2021, Additional history exists Diabetes Screening 07/19/2026 07/20/2023 Pneumococcal Vaccine: 50+ Completed 11/18/2019, 03/2017 RSV Vaccine Completed 11/23/2022 Medical Devices Implanted Type Area Surgical Aides Teacher Device Identifier Shelf Expiration Date Model / Serial / Lot [id number] [employer] - [id number] Implanted:Qty : 1 on 05/01/2024 by Leah Rooney MD at [facility] Intraocular Lens Right: Eye [employer] 07/02/2027 [id number] 0 / [id number] / [id number] [employer] - [id number] Implanted:Qty : 1 on 05/22/2024 at [facility] Intraocular Lens Left: Eye [employer] 11/20/2027 [id number].19 5 / [id number] / Insurance [employer] MEDICARE Care Teams Marketing Automation Analyst Relationship Specialty Start Date End Date Reva Ritchie, SYNTHETIC CHEMIST [address] [place] [address] PCP - General Internal Medicine 04/10/24
--- OUTSIDE RECORDS SUMMARY | 2024-09-24 08:29 | XMS_ITS | CCD ---
Author Organization [facility] Care Team Providers Care Criminal Justice Program Director Name Role Phone Luiz Jimenez Unavailable SHIVA, REVA Admitting Unavailable SHIVA, REVA Attending Unavailable ZINATALIE, DR ZULEMA Obando Consulting Unavailable SHIVA, REVA Primary Care Unavailable SHIVA, REVA Consulting Unavailable SHIVA, REVA Attending Unavailable SHIVA, REVA Consulting Unavailable SHIVA, REVA Primary Care Unavailable SHIVA, REVA Admitting Unavailable SHIVA, REVA Primary Care Unavailable MELISSAY ., DR PAT Admitting Unavailable HOY ., DR PAT Attending Unavailable HOY ., DR PAT Consulting Unavailable ZIEBSHANITA, DR UZLEMA Obando Consulting Unavailable DO Jaciel Echavarria Attending Provider REVA HSANNON S Primary Care Physician LAKEISHA JUNG Attending Unavailable SHIVA, REVA S Referring Unavailable SHIVA, REVA S Primary Care Unavailable SHIVA, REVA S Referring Unavailable SHIVA, REVA S Primary Care Unavailable SHIVA, REVA S Referring Unavailable SHIVA, REVA S Primary Care Unavailable JACIEL ECHAVARRIA Attending Unavailable JACIEL ECHAVARRIA E Referring Unavailable SHIVA, REVA S Primary Care Unavailable GRILLIJACIEL Villagomez Attending Unavailable GRILLIS, JACIEL E Referring Unavailable SHIVA, REVA S Primary Care Unavailable Zack Gibson Referring Unavailable SHIVA, REVA S Primary Care Unavailable MD Jaciel Henry Attending Provider [phone] Jaciel Echavarria Admitting Unavailable Jaciel Echavarria Attending Unavailable Jaciel Henry Admitting Unavailable NilJaciel wright Attending Unavailable Jaciel Henry Admitting Unavailable Jaciel Henry Attending Unavailable Gabinol Jaciel FRANCISCO Attending Provider [...] Unavailable Unavailable Primary Care Provider Unavailnatalya Shannon FISH CUTTER-TECHNICAL SME, Reva S Primary Care Provider Unavailable Primary Care Provider Unavailnatalya Shannon TECHNICAL SME, Reva S Primary Care Provider [phone] DESIREE ROONEY Admitting Unavailable TAO, DESIREE A Referring Unavailable [...] Unavailable SHIVA, REVA S Primary Care Unavailable Rupal Velazquez DO Attending Provider [phone] Reva Wesley Primary Care Provider Allergies Allergy Classification Reported Allergen(s) Allergy Type Date of Onset Reaction(s) Facility (1 source) No Known Medication Allergies; Translations: [No Known Medication Allergies] Propensity to adverse reactions (disorder) [facility] Repository Medications Current Medications Medication Drug [...] completed) omeprazole 20 mg delayed release oral capsule (10 sources) Proton Pump Inhibitor Start: 09-03-2024 take 1 capsule by mouth once daily Omeprazole Magnesium (Acid Fixed Wing Aircraft Flight Mechanic (Omeprazole)) 20 mg capsule,delayed release(DR/EC) Active 20 MG PO Daily September 03, 2024 12:00am Complies with drug therapy Start: 11-21-2023 Omeprazole Mag nesium (PRILOSEC OTC) 20 mg tablet Take 20 [...] 05/22/2024 Active simvastatin 20 mg oral tablet (19 sources) HMG-CoA Reductase Inhibitor Start: 09-03-2024 Simvastatin 20 mg tablet Active 20 MG PO September 03, 2024 12:00am Complies with drug therapy Start: 06-28-2023 simvastatin (Z OCOR) 20 mg tablet Take 20 mg by mouth. 06/28/2023 Active take 1 tablet by shaq th in the morning simvastatin (ZOCOR) 20 mg tablet Take 1 tablet (20 mg total) by mouth in the morning. 0 Active Problems Active Problems Problem Classification Problem Date Documented Da te Episodic/Chronic Abdominal hernia (8 sources) Umbilical hernia; [...] EVALon 025 ANES POSTPROC EVAL HNO ID: [id number] Author: DAVID ALLISON MD Service: Anesthesiology Author Type: Anesthesiologist Type: Anesthesia Postprocedure Evaluation Filed: 05/22/2024 14:10 Note Text: POST ANESTHESIA EVALUATION NOTE : 1945 Procedure Summary Date: 05/22/24 Room / Location: [address] Anesthesia Start: 1131 Anesthesia Stop: 1159 [...] May 22, 2024 TIME: 2:09 PM CSN: [id number] [facility] ANES PRE-OPon 05-22-2024 ANES PRE-OP HNO ID: [id number] Author: DAVID ALLISON MD Service: Anesthesiology Author Type: Anesthesiologist Type: Anesthesia Preprocedure Evaluation Filed: 05/22/2024 10:59 Note Text: ANESTHESIOLOGY DAY OF SURGERY NOTE : 1945 Procedure Information Date/Time: 05/22/24 1050 Procedures: PHACOEMULSIFICATION CATARACT IMPLANT INTRAOCULAR LENS W/O ENDOSCOPIC CYCLOPHOTOCOAGULATION (Left: Eye) OPHTHALMIC BIOMETRY BY PARTIAL COHERENCE INTERFEROMETRY W/INTRAOCULAR LENS POWER CALCULATION (Left: Eye) Location: [address] Surgeons: Desiree Rooney MD Estimated body [...] and consent discussed: yes. Patient / Responsible Alliance Party agrees to proceed: yes Patient / Surrogate [...] May 22, 2024 TIME: 10:58 AM CSN: [id number] [facility] OPERATIVE NOon 05-22-2024 OPERATIVE NO HNO ID: [id number] Author: DESIREE ROONEY MD Service: Ophthalmology Author Type: Physician Type: Operative Report Filed: 07/10/2024 08:07 Note Text: OPERATIVE/PROCEDURE REPORT LOG ID: [id number] Surgery/Procedure Date: 05/22/2024 Incision/Procedure Start Time: 11:46 AM Incision Close/Procedure End Time: 11:53 AM Surgeon(s)/Proceduralist(s) and Painter And Body Mechanic Apprentice(s): Surgeons and Role: * Desiree Rooney MD - Primary Painter And Body Mechanic Apprentice: None. Any nurse listed as assisting or [...] surgery, correct implant and all allergies. The [employer] Lens verification Policy was meticulously followed as previously approved with both an initial lens verification by myself in the presence of the Nurse Coordinator and the motor vehicle technician and a secondary full lens verification as part of the Time Out, with patient identity, laterality, and lens choice confirmed against the source document by myself, the Home Care Giver Nurse, and the motor vehicle technician. Topical lidocaine gel 2% was placed [...] lidocaine on a 27-guage cannula. Using the TwtBks phacoemulsification unit with the Spotwish curved tip, the anterior chamber was entered [...] the entire procedure. Comanage with Dr. Gray; [facility] POD #1. SIGNATURE: Desiree Rooney MD PATIENT NAME: Abigail Washington DATE: May 22, 2024 TIME: 11:54 AM PAGER/CONTACT #: [facility] ANES POSTPROC EVALon 025 ANES POSTPROC EVAL HNO ID: [id number] Author: MARCIANO ANGEL II, DO Service: Anesthesiology Author Type: Anesthesiologist Type: Anesthesia Postprocedure Evaluation Filed: 05/01/2024 12:59 Note Text: POST ANESTHESIA EVALUATION NOTE : 1945 Procedure Summary Date: 05/01/24 Room / Location: [address] Anesthesia Start: 1127 Anesthesia Stop: 1144 [...] May 01, 2024 TIME: 12:59 PM CSN: [id number] [facility] ANES PRE-OPon 05-01-2024 ANES PRE-OP HNO ID: [id number] Author: MARCIANO ANGEL II, DO Service: Anesthesiology Author Type: Anesthesiologist Type: Anesthesia Preprocedure Evaluation Filed: 05/01/2024 10:46 Note Text: ANESTHESIOLOGY DAY OF SURGERY NOTE : 1945 Procedure Information Date/Time: 05/01/24 1100 Procedures: PHACOEMULSIFICATION CATARACT IMPLANT INTRAOCULAR LENS W/O ENDOSCOPIC CYCLOPHOTOCOAGULATION (Right: Eye) OPHTHALMIC BIOMETRY BY PARTIAL COHERENCE INTERFEROMETRY W/INTRAOCULAR LENS POWER CALCULATION (Right: Eye) Location: [place] [address] / [facility] Surgeons: Desiree Rooney MD Estimated body mass [...] and consent discussed: yes. Patient / Responsible Alliance Party agrees to proceed: yes Patient / Surrogate [...] May 01, 2024 TIME: 10:40 AM CSN: [id number] [facility] OPERATIVE NOon 05-01-2024 OPERATIVE NO HNO ID: [id number] Author: DESIREE ROONEY MD Service: Ophthalmology Author Type: Physician Type: Operative Report Filed: 05/01/2024 11:43 Note Text: OPERATIVE/PROCEDURE REPORT LOG ID: [id number] Surgery/Procedure Date: 05/01/2024 Incision/Procedure Start Time: 11:35 AM Incision Close/Procedure End Time: 11:41 AM Surgeon(s)/Proceduralist(s) and Painter And Body Mechanic Apprentice(s): Surgeons and Role: * Desiree Rooney MD - Primary Painter And Body Mechanic Apprentice: None. Any nurse listed as assisting or [...] surgery, correct implant and all allergies. The [employer] Lens verification Policy was meticulously followed as previously approved with both an initial lens verification by myself in the presence of the Nurse Coordinator and the motor vehicle technician and a secondary full lens verification as part of the Time Out, with patient identity, laterality, and lens choice confirmed against the source document by myself, the Home Care Giver Nurse, and the motor vehicle technician. Topical lidocaine gel 2% was placed [...] Using the Suleiman phacoemulsification unit with the Enchanted Lightingman curved tip, the anterior chamber was entered [...] Implant Name Type Inv. Item Serial No. Sole Molding Machine Operator Lot No. LRB No. Used Action Model No. [id number] [employer] - [id number] Intraocular Lens [id number].190 [employer] [id number] [employer] Right 1 Implanted [id number] Drains: None. Complications: None. I performed the entire procedure. Comanage with Dr. Gray; [facility] POD #1. SIGNATURE: Desiree Rooney MD PATIENT NAME: Abigail Washington DATE: May 01, 2024 TIME: 11:43 AM PAGER/CONTACT #: [facility] ASCAN ONLY - DIAGNOSTIC OU ( BOTH EYES)on 04-26-2024 [facility] Radiology Study observation (narrative) [facility] HISTORY PHYSICALon HISTORY PHYSICAL HNO ID: [id number] Author: TYLER BELTRAN APRN.CNP Service: ? Author Type: Nurse Practitioner Type: H&P Filed: 04/26/2024 10:18 Note Text: [facility] HISTORY AND PHYSICAL EXAMINATION SERVICE DATE: 04/26/2024 SERVICE TIME: 10:02 AM PRIMARY CARE PHYSICIAN: Reva Shannon CNP, TECHNICAL SME REASON FOR VISIT: Abigail Washington is a [...] have a large neck STOP-Bang Score: 2 [id number] Score: Age: >=75 Sex: male CHF history: No Hypertension history: No Stroke/TIA/thromboembolism history: No Vascular disease history: No Diabetes history: No [id number] Score: 2 ARISCAT Score: Age: 51-80 Preoperative [...] fevers. Neuro: No history of TIA's, stroke, PROTOHISTORIAN tumor, impaired sensorium, hemiplegia, paraplegia or quadraplegia. No neurological symptoms or problems. Respiratory: No history of current cough or dyspnea, or pneumonia in the past 6 weeks. No history of respiratory/pulmonary symptoms or problems. Cardiovascular: No history of HTN requiring medication, no history of angina, CHF, NV, cardiac surgery or stents. Denies rest pain, [...] of CA (more content not included)... [facility] IOL BIOMETRY W/ IOL CALC OU (BOTH EYES)on 04-26-2024 [facility] Radiology Study observation (narrative) [facility] Ambulatory Visit Summaryon 1 04-08-2023 Ambulatory [...] Following Appointments Follow Up with ELAINE FRANCISCO, Jaciel Obando, CASE When: Only if needed Where: [address] [place] [address]- Medications What How Much When Instructions Unchanged [...] choosing us for your care. [facility] General Surgery Office/Clini c Noteon 02-06-2024 General [...] FRANCISCO, CASE Bautista Only if needed [address] [place] [address]- Additional Instructions: Problem List/Past Medical [...] virus vaccine, inactivated 11/23/2022 Recorded SARS-CoV-2 (COVID-19) mRNAMUL.ORD![id number] 12/14/2021 Recorded SARS-CoV-2 (COVID-19) mRNA BNT-162b2 vax 06/29/2021 Recorded SARS-CoV-2 (COVID-19) mRNA-1273 vaccine 01/06/2021 Recorded SARS-CoV-2 (COVID-19) mRNA-1273 vaccine 06/04/2020 Recorded SARS-CoV-2 (COVID-19) mRNA-1273 vaccine 05/07/2020 Recorded [facility] Comment on above: Result Comment: Elec tronically Signed By: Jaciel HENRY MD\.br\Date and Time Signed: 02/06/24 09:17 EST Ambulatory Visit Summaryon 1 03-25-2023 Ambulatory Visit Summary Ambulatory Visit Summary ABIGAIL WASHINGTON Marely :1945 Visit Date:01/24/2024 Ambulatory Visit Instructions Your [...] Follow-Up Appointments Monday 8:40 AM EST With: Jaciel HENRY MD Where: [facility] [address], [address], [place] [address]- Medications What How Much When Instructions Unchanged [...] for choosing us for your care. Normal [facility] General Surgery Office/Clini c Noteon 01-24-2024 General Surgery Office/Clinic Note General Surgery Office/Clinic Note Chief Complaint post operative follow up HPI Staff 7 day post operative follow up post robotic assisted umbilical hernia repair. Reports minimal discomfort. Taking Hydrocodone BID and Ibuprofen 600mg BID. Denies bleeding or drainage. [place] moving well. Wearing abdominal binder as directed. [...] virus vaccine, inactivated 11/23/2022 Recorded SARS-CoV-2 (COVID-19) mRNAMUL.ORD![id number] 12/14/2021 Recorded SARS-CoV-2 (COVID-19) mRNA BNT-162b2 vax 06/29/2021 Recorded SARS-CoV-2 (COVID-19) mRNA-1273 vaccine 01/06/2021 Recorded SARS-CoV-2 (COVID-19) mRNA-1273 vaccine 06/04/2020 Recorded SARS-CoV-2 (COVID-19) mRNA-1273 vaccine 05/07/2020 Recorded [facility] Comment on above: Result Comment: Elec tronically Signed By: ELAINE FRANCISCO, Jaciel Hall\Date and Time Signed: 01/24/24 14:51 EST Pathology study report docum entOrdered By: Humberto Perkins on 01-18-2024 Pathology study [facility] Other Phone: Leonides 01-17-2024 L -------- -------- Specimen: [id number] Received: 01/17/24 Status: BRENT Valenzuela Num: [id number] Spec Type: Surgical Subm Dr: Jaciel Henry MD FACS Tissues: A Hernia Sac (HERNIA SAC) Procedures: BENI, Gross/Micro L2 -------- Age/ Patient Sex Location Account Attending Physician -------- Aibgail Washington 78/M LABELL [id number] Jaciel Henry MD FACS -------- SPEC NUM: [id number] RECD: 01/17/24 STATUS: BRENT VALENZUELA NUM: [id number] DAMARI: 01/17/24 [facility] DR: Jaciel Henry MD FACS ENTERED: 01/17/[address]: Gonzalez Lazaro SPEC TYPE: Surgical DEPT: [facility] [place] ENTERED BY: [id number] RECV BY: [id number] ORDERED: BENI, Gross/Micro L2 ORDERED: BENI, Gross/Micro L2 Pathological Diagnosis Soft tissue, ventral [...] to pink, glistening and uniform cut surfaces. Studio Engineer sections are submitted in a single cassette. (1, , [id number]) CHELSEY -------- Specimen: [id number] Received: 01/17/24 Status: BRENT Mckeonlesly Num: [id number] Spec Type: Surgical Subm Dr: Jaciel Henry MD FACS Tissues: A Hernia Sac (HERNIA SAC) Procedures: Obdulio BAZAN/[place] -------- Patient: Abigail Washington [id number] (Continued) -------- Specimen: [id number] Received: 01/17/24 (Continued) Signed (signature on file) Humberto Perkins MD 01/18/24 1801 -------- Specimen: [id number] Received: 01/17/24 Status: BRENT Valenzuela Num: [id number] Spec Type: Surgical Subm Dr: Jaciel Henry MD FACS Tissues: A Hernia Sac (HERNIA SAC) Procedures: Obdulio BAZAN/Micky L2 -------- Patient: Abigail Washington [id number] (Continued) -------- Specimen: [id number] Received: 01/17/24 (Continued) Microscopic Description Microscopic examinations are performed supporting the above interpretation CPT Codes 98922 -------- -------- Specimen: [id number] Received: 01/17/24 Status: BRENT Valenzuela Num: [id number] Spec Type: Surgical Subm Dr: Jaciel Henry MD [facility] Tissues: A Hernia Sac (HERNIA SAC) Procedures: Obdulio BAZAN/Micky L2 -------- Patient: Abigail Washington [id number] (Continued) -------- Signed (signature on file) Humberto Perkins MD 01/18/241800 Normal [facility] Ambulatory Visit Summaryon 03-11-2023 Ambulatory Visit Summary Ambulatory Visit Summary ABIGAIL WASHINGTON :1945 Visit Date:01/10/2024 Ambulatory Visit Instructions Your Diagnosis Right upper quadrant pain Biloma following surgery Recurrent umbilical hernia Other specified disorders of peritoneum Tests Performed CT Abdomen/Pelvis w/ Contrast -- Results Pending -- Please visit your patient portal for your results or contact your primary care physician. Your Care Team Attending Physician - Jaciel [...] you for choosing us for your care. [facility] Ambulatory Visit Summaryon 0 11-21-2023 Ambulatory Visit Summary Ambulatory Visit Summary ABGIAIL WASHINGTON :1945 Visit Date:11/21/2023 Ambulatory Visit Instructions Your Care Team Attending Physician - Jaciel [...] you for choosing us for your care. [facility] Ambulatory Visit Summaryon 0 08-29-2023 Ambulatory [...] FRANCISCO, Renate Morales Where: [facility] General Surgery Office/Clini c Noteon [...] virus vaccine, inactivated 11/23/2022 Recorded SARS-CoV-2 (COVID-19) mRNAMUL.ORD![id number] 12/14/2021 Recorded SARS-CoV-2 (COVID-19) mRNA BNT-162b2 vax 06/29/2021 Recorded SARS-CoV-2 (COVID-19) mRNA-1273 vaccine 01/06/2021 Recorded SARS-CoV-2 (COVID-19) mRNA-1273 vaccine 06/04/2020 Recorded SARS-CoV-2 (COVID-19) mRNA-1273 vaccine 05/07/[address] [facility] Comment on above: Result Comment: Elec [...] of polyp/family history of colon cancer. Normal [facility] Pathology Noteon 08-20-2023 Pathology Note [id number]#1.00TIFF Normal [facility] Outside Colonoscopyon 2023 Outside Colonoscopy [id number]#1.00TIFF [facility] Leonides 08-09-2023 L Specimen: [id number] eceived: 08/10/23 Status: BRENT Valenzuela Num: [id number] Spec Type: Surgical Subm Dr: Jaciel Henry MD FACS Tissues: A Colon Biopsy (SIGMOID POLYP) Procedures: HE/2, Gross/Micro L4 Age/ Patient Sex Location Account Attending Physician Abigail Washington 77/M LABELL [id number] Jaciel Henry MD FACS SPEC NUM: [id number] RECD: 08/10/23 STATUS: BRENT VALENZUELA NUM: [id number] DAMARI: 08/09/[address]: Jaciel Henry MD FACS ENTERED: 08/10/[address] [facility] [address]: Lamberto,Lab SPEC TYPE: Surgical DEPT: OMAYRA [...] cm, entirely submitted in A1. CPT Codes 65402 -------- -------- Specimen: [id number] Received: 08/10/23-1256 Status: BRENT Valenzuela Num: [id number] Spec Type: Surgical Subm Dr: Jaciel Henry MD FACS Tissues: A Colon Biopsy (SIGMOID POLYP) Procedures: HE/2, Gross/Micro L4 -------- Patient: Abigail Washington [id number] (Continued) -------- Signed (signature on file) Humberto Perkins MD 08/14/23 1556 Normal [facility] Insurance Correspondenceon 0 07-26-2023 Insurance Correspondence [id number]#1.00TIFF Normal [facility] ASPIRATE CULTUREon 4 Bacteria identified Aer cx Nom (Asp) GRAM STAIN 10 to 24 WHITE BLOOD CELLS/LPF 0 SQUAMOUS EPITHELIAL CELLS/LPF NO ORGANISMS SEEN CULTURE RESULTS NO GROWTH 3 DAYS Normal [facility] Comment on above: Performed By: #### 5 97-5 #### [facility] ([id number]) [address], [address] [place] [address] COMPREHENSIVE METABOLIC PANE Leonides 07-20-2023 Albumin [Mass/Vol] 3.5 g/dL Normal 3.2-5.3 [facility] Comment on above: Performed By: #### C MP #### [facility] ([id number]) [address] [place] [address] ALP [Catalytic activity/Vol] 298 U/L High 39-130 [facility] Comment on above: Performed By: #### C MP #### [facility] ([id number]) [address] [place] [address] [place] [address] ALT [Catalytic activity/Vol] 32 U/L Normal 0-40 [facility] Comment on above: Performed By: #### C MP #### [facility] ([id number]) [address] [place] [address] Anion gap [Moles/Vol] 10 mmol/L Normal 5-15 [facility] Comment on above: Performed By: #### C MP #### [facility] ([id number]) [address] [place] [address] AST [Catalytic activity/Vol] 36 U/L Normal 0-41 [facility] Comment on above: Performed By: #### C MP #### [facility] ([id number]) [address] [place] [address] Bilirubin [Mass/Vol] 1.0 mg/dL Normal 0.3-1.2 [facility] Comment on above: Performed By: #### C MP #### [facility] ([id number]) [address] [place] [address] [place] [address] Calcium [Mass/Vol] 8.8 mg/dL Normal 8.5-10.5 [facility] Comment on above: Performed By: #### C MP #### [facility] ([id number]) [address] [place] [address] Chloride [Moles/Vol] 101 mmol/L Normal 98-109 [facility] Comment on above: Performed By: #### C MP #### [facility] ([id number]) [address] [place] [address] CO2 [Moles/Vol] 25 mmol/L Normal 22-32 [facility] Comment on above: Performed By: #### C MP #### [facility] ([id number]) [address] [place] [address] Creatinine [Mass/Vol] 0.89 mg/dL Normal 0.70-1.20 [facility] Comment on above: Result Comment: METH OD TRACEABLE TO IDMS STANDARD Performed By: #### C MP #### [facility] ([id number]) [address] [place] [address] GFR/1.73 sq M.predicted among non-blacks MDRD (S/P/Bld) [Vol rate/Area] 89 mL/min/{1.73_m2} Normal >59 [facility] Comment on above: Result Comment: Reported eGFR is based on the CKD-EPI 2021 equation that does not use a race coefficient. Performed By: #### C MP #### [facility] ([id number]) [address] [place] [address] Glucose [Mass/Vol] 104 mg/dL High 65-99 [facility] Comment on above: Performed By: #### C MP #### [facility] ([id number]) [address] [place] [address] Potassium [Moles/Vol] 4.0 mmol/L Normal 3.5-5.0 [facility] Comment on above: Performed By: #### C MP #### [facility] ([id number]) [address] [place] [address] Protein [Mass/Vol] 7.8 g/dL Normal 6.0-8.0 [facility] Comment on above: Performed By: #### C MP #### [facility] ([id number]) [address], [place] [address] Sodium [Moles/Vol] 136 mmol/L Normal 134-146 [facility] Comment on above: Performed By: #### C MP #### [facility] ([id number]) [address] [facility] [address] [facility], [place] [address] Urea nitrogen [Mass/Vol] 17 mg/dL Normal 5-27 [facility] Comment on above: Performed By: #### C MP #### [facility] ([id number]) [address] [place] [address] Cytologyon 07-20-2023 Cytology Normal [facility] Comment on above: Result Comment: [facility] [address] [place] [address] Cytology Consultation Patient Name:ABIGAIL WASHINGTON:1945 (Age: 77)Gender:MTaken:07/20/2023eported:07/21/2023 11:52Physician(s):Zack Gibson M.D. ([phone])Copy To:Jaciel Echavarria D.O. Rec. #:[id number]: #[id number] Final Cytologic Diagnosis Bile leak fluid: No malignant cells identified. [facility]/07/21/2023 Interpretation performed at [facility], [address] [place], [place] [address], License number: [id number].Electronically Signed Out By Jerrod Batista M.D. Clinical History None given. Gross Description Received was 1,600 mL of brown fluid unfixed labeled as [place], bile leak . CytoLyt added in lab. Specimen placed in formalin at 14:00 and had a total fixation time of 12 hours. Source of Specimen Bile leak fluid Cell block for Non-sock knitter (M), Level 2 H&E, Non ASSISTANT OPERATIONS MANAGER ThinPrep Fee Code(s): 1; 22709, 17478 IR BILIARY DRAIN INTERNAL/EX T COMPon 07-20-2023 [...] in its inferior portion with a 10 Arabic pigtail drainage catheter, using trocar technique. A [...] Gibson MD on 07/20/2023 12:51 PM Normal [facility] NM HEPATOBILIARY SYS IMAGING WO PHARMACOLOGIC [...] Wan MD on 07/20/2023 7:35 AM Normal [facility] PLATELET COUNT AND MPVon Platelet mean volume (Bld) [Entitic vol] 7.2 fL Normal 7-12 [facility] [facility] Comment on above: Performed By: #### P LTCT, PINR #### [facility] ([id number]) [address] [place] [address] Platelets (Bld) [#/Vol] 247 10*3/uL Normal 150-450 [facility] Comment on above: Performed By: #### P LTCT, PINR #### [facility] ([id number]) [address] [place] [address] 8[address]75 PROTIME AND INRon 07-20-2023 INR Coag (PPP) [Relative time] 1.1 {INR} Normal 0.8-1.1 [facility] Comment on above: Performed By: #### P LTCT, PINR #### [facility] ([id number]) [address] [place] [address] PT Coag (PPP) [Time] 12.8 s Normal 9.8-13.2 [facility] Comment on above: Result Comment: NEW REFERENCE RANGE Performed By: #### P LTCT, PINR #### [facility] ([id number]) [address] [place] [address] 15286 Consent for Procedure/Surger yon 07-12-2023 Consent for Procedure/Surgery [id number]#[id number] Normal [facility] Ambulatory Visit Summaryon 0 07-11-2023 Ambulatory [...] you for choosing us for your care. [facility] Facesheeton 07-11-2023 Facesheet [id number]#1.00TIFF [facility] Physician Referralon 024 Physician Referral [id number]#[id number] [facility] Multiple labson 05-27-2023 [facility] Surgical Pathologyon 024 [facility] Leonides 05-24-2023 L Specimen: [id number] eceived: 05/25/23 Status: BRENT Valenzuela Num: [id number] Spec Type: Surgical Subm Dr: Jaciel Echavarria DO Tissues: A Gallbladder (GALLBLADDER) Procedures: HE, Gross/Micro L3 Age/ Patient Sex Location Account Attending Physician Abigail Washington/M LABELL [id number] Jaciel Echavarria DO SPEC NUM: [id number] RECD: 05/25/23 STATUS: BRENT VALENZUELA NUM: [id number] DAMARI: 05/24/[address]: Jaciel Echavarria DO ENTERED: 05/25/[address]: [facility] SPEC TYPE: Surgical DEPT: OMAYRA WILLOUGHBY ORDERED: HE Gross/Micro L3 ORDERED: BENI, Gross/Micro L3 Pathological Diagnosis Gallbladder, Cholecystectomy: Acute [...] red- brown to green-angel and denuded. . Studio Engineer sections are submitted in one cassette labeled A1. CPT Codes 09266 -------- -------- Specimen: [id number] Received: 05/25/23 Status: BRENT Valenzuela Num: [id number] Spec Type: Surgical Subm Dr: Jaciel Echavarria, Tissues: A Gallbladder (GALLBLADDER) Procedures: Obdulio BAZAN/Micro L3 -------- Patient: Abigail Washington [id number] (Continued) -------- Signed (signature on file) Nikita Dunne MD 05/26/23 1220 Normal [facility] NM STRESS/REST MULTIon 06-06 NM STRESS/REST MULTI Patient: ABIGAIL WASHINGTON. Exam Date: 06/06/2022 : 1945 Gender:M Ordering : REVA SHANNON [facility] Admission #: [id number] Family : Order #: [id number] CLICK HERE TO VIEW EXAM RADIOLOGY REPORT [...] M.D. on 06/07/2022 at 07:05 Normal [facility] INSULINon 05-19-2022 Insulin 11.6 uIU/mL Normal 2.6-24.9 [facility] Comment on above: Performed By: #### I NSULIN #### [facility] [address] [place] [address] Dr. Karely Perkins CBC AUTO DIFFon 05-18-2022 BASO # 0.0 103/ul Normal 0.0-0.1 [facility] Comment on above: Performed By: #### C BC #### [facility] [address] [place] [address] Dr. Karely Perkins Basophils/100 WBC (Bld) 0.6 % Normal 0.2-2.0 [facility] Comment on above: Performed By: #### C BC #### [facility] [address] [place] [address] Dr. Karely Perkins EO # 0.2 103/ul Normal 0.0-0.7 [facility] Comment on above: Performed By: #### C BC #### [facility] [address] [place] [address] Dr. Karely Perkins Eosinophils/100 WBC (Bld) 3.9 % Normal 0.9-7.0 [facility] Comment on above: Performed By: #### C BC #### [facility] [address] [place] [address] Dr. Karely Perkins Erythrocyte distribution width (RBC) [Ratio] 12.8 % Normal 11.0-15.0 [facility] Comment on above: Performed By: #### C BC #### [facility] [address] [place] [address] Dr. Karely Perkins Hematocrit (Bld) [Volume fraction] 48.4 % Normal 42.0-54.0 [facility] Comment on above: Performed By: #### C BC #### [facility] [address] [place] [address] Dr. Karely Perkins Hemoglobin (Bld) [Mass/Vol] 15.8 g/dL Normal 14.0-18.0 [facility] Comment on above: Performed By: #### C BC #### [facility] [address] [place] [address] Dr. Karely Perkins IG # 0.01 10e3/ul Normal 0.00-0.03 [facility] Comment on above: Performed By: #### C BC #### [facility] [address] [place] [address] Dr. Karely Perkins IG % 0.2 % Normal 0.0-0.5 [facility] Comment on above: Performed By: #### C BC #### [facility] [address] [place] [address] Dr. Karely Perkins LYMPH # 1.4 103/ul Normal 1.2-3.8 [facility] Comment on above: Performed By: #### C BC #### [facility] [address] [place] [address] Dr. Karely Perkins Lymphocytes/100 WBC (Bld) 28.5 % Normal 20.5-60.0 [facility] Comment on above: Performed By: #### C BC #### [facility] [address] [place] [address] Dr. Karely Perkins MANUAL DIFF REQ NO Normal [facility] Comment on above: Performed By: #### C BC #### [facility] [address] [place] [address] Dr. Karely Perkins MCH (RBC) [Entitic mass] 28.7 pg Normal 25.9-34.0 [facility] Comment on above: Performed By: #### C BC #### [facility] [address] [place] [address] Dr. Karely Perkins MCHC (RBC) [Mass/Vol] 32.6 g/dL Normal 29.9-35.2 [facility] Comment on above: Performed By: #### C BC #### [facility] [address] [place] [address] Dr. Karely Perkins MCV (RBC) [Entitic vol] 87.8 fL Normal 80.0-94.0 [facility] Comment on above: Performed By: #### C BC #### [facility] [address] [place] [address] Dr. Karely Perkins MONO # 0.5 103/ul Normal 0.3-0.8 [facility] Comment on above: Performed By: #### C BC #### [facility] [address] [place] [address] Dr. Karely Perkins Monocytes/100 WBC (Bld) 10.3 % Normal 1.7-12.0 [facility] Comment on above: Performed By: #### C BC #### [facility] [address] [place] [address] Dr. Karely Perkins NEUT # 2.7 103/ul Normal 1.4-6.5 [facility] Comment on above: Performed By: #### C BC #### [facility] [address] [place] [address] Dr. Karely Perkins Neutrophils/100 WBC (Bld) 56.5 % Normal 43.0-75.0 [facility] Comment on above: Performed By: #### C BC #### [facility] [address] [place] [address] Dr. Karely Perkins Platelet mean volume (Bld) [Entitic vol] 9.3 fL Critically low 9.5-13.5 [facility] Comment on above: Performed By: #### C BC #### [facility] [address] [place] [address] Dr. Karely Perkins PLT 184 103/ul Normal 150-450 [facility] Comment on above: Performed By: #### C BC #### [facility] [address] [place] [address] Dr. Karely Perkins RBC 5.51 106/ul Normal 4.70-6.10 [facility] Comment on above: Performed By: #### C BC #### [facility] [address] [place] [address] Dr. Karely Perkins WBC 4.9 103/ul Normal 4.0-11.0 [facility] Comment on above: Performed By: #### C BC #### [facility] [address] [place] [address] Dr. Karely Perkins GLYCOHEMOGLOBIN A1Con 2022 ADA RECOMMENDATION SEE BELOW Normal [facility] Comment on above: Result Comment: ADA RECOMMENDED LIMIT 4.0 - 6.0 ADA THERAPEUTIC TARGET < 7.0 ACTION SUGGESTED > 7.0 Performed By: #### A 1C #### [facility] [address] [place] [address] Dr. Karely Perkins Glucose [Mass/Vol] 120 mg/dL Normal [facility] Comment on above: Performed By: #### A 1C #### [facility] [address] [place] [address] Dr. Karely Perkins HbA1c (Bld) [Mass fraction] 5.8 % Normal 4.5-6.2 [facility] Comment on above: Performed By: #### A 1C #### [facility] [address] [place] [address] Dr. Karely Perkins LIPID PROFILEon 05-18-2022 CHOL-HDL RATIO NORM SEE BELOW Normal [facility] Comment on above: Result Comment: 3.3 - 4.4 LOW RISK 4.4 - 7.1 AVERAGE RISK 7.1 - 11.0 MODERATE RISK >11.0 HIGH RISK Performed By: #### C MP, LIPID #### [facility] [address] [place] [address] Dr. Karely Perkins Cholesterol [Mass/Vol] 169 mg/dL Normal <=200 [facility] Comment on above: Performed By: #### C MP, LIPID #### [facility] [address] [place] [address] Dr. Karely Perkins Cholesterol in HDL [Mass/Vol] 74 mg/dL Critically high 40-60 [facility] Comment on above: Performed By: #### C MP, LIPID #### [facility] [address] [place] [address] Dr. Karely Perkins Cholesterol in LDL [Mass/Vol] 80.6 mg/dL Normal [facility] Comment on above: Performed By: #### C MP, LIPID #### [facility] [address] [address] [address] Karely Perkins Cholesterol.total/C holesterol in HDL [Mass ratio] 2.3 {ratio} Normal [facility] Comment on above: Performed By: #### C MP, LIPID #### [facility] [address] [address] [address] Karely Perkins HDL NORMAL > or = 60 mg/dl - LO W CARDIOVASCULAR RISK <40 mg/dl - HIGH CARDIOVASCULAR RISK Normal [facility] Comment on above: Performed By: #### C MP, LIPID #### [facility] [address] [place] [address] Dr. Karely Perkins LDL CALC NORMAL SEE BELOW Normal [facility] Comment on above: Result Comment: <100 mg/dl OPTIMAL 100 - 129 mg/dl NEAR OR ABOVE OPTIMAL 130 - 159 mg/dl BORDERLINE HIGH 160 - 189 mg/dl HIGH >190 mg/dl VERY HIGH Performed By: #### C MP, LIPID #### [facility] [address] [place] [address] Dr. Karely Perkins Triglyceride [Mass/Vol] 72 mg/dL Normal <=150 [facility] Comment on above: Performed By: #### C MP, LIPID #### [facility] [address] [place] [address] Dr. Karely Perkins VLDL CALC 14.4 mg/dL Normal [facility] Comment on above: Performed By: #### C MP, LIPID #### [facility] [address] [place] [address] Dr. Karely Perkins PROF 14(COMP METB)on 023 Albumin [Mass/Vol] 3.7 g/dL Normal 3.4-5.0 [facility] Comment on above: Performed By: #### C MP, LIPID #### [facility] [address] [place] [address] Dr. Karely Perkins Albumin/Globulin [Mass ratio] 1.0 {ratio} Normal [facility] Comment on above: Performed By: #### C MP, LIPID #### [facility] [address] [place] [address] Dr. Karely Perkins ALP [Catalytic activity/Vol] 117 U/L Critically high 46-116 [facility] Comment on above: Performed By: #### C MP, LIPID #### [facility] [address] [address] [address] Karely Perkins ALT [Catalytic activity/Vol] 24 U/L Normal 16-63 [facility] Comment on above: Performed By: #### C MP, LIPID #### [facility] [address] [address] [address] Karely Perkins Anion gap [Moles/Vol] 9.4 mmol/L Normal [facility] Comment on above: Performed By: #### C MP, LIPID #### [facility] [address] [place] [address] Dr. Karely Perkins AST [Catalytic activity/Vol] 34 U/L Normal 15-37 [facility] Comment on above: Performed By: #### C MP, LIPID #### [facility] [address] [place] [address] Dr. Karely Perkins Bilirubin [Mass/Vol] 0.7 mg/dL Normal 0.2-1.0 [facility] Comment on above: Performed By: #### C MP, LIPID #### [facility] [address] [place] [address] Dr. Karely Perkins Calcium [Mass/Vol] 9.0 mg/dL Normal 8.5-10.1 [facility] Comment on above: Performed By: #### C MP, LIPID #### [facility] [address] [address] [address] Karely Perkins Chloride [Moles/Vol] 108 mmol/L Critically high 98-107 [facility] Comment on above: Performed By: #### C MP, LIPID #### [facility] [address] [place] [address] Dr. Karely Perkins CO2 [Moles/Vol] 30.7 mmol/L Normal 21.0-32.0 [facility] Comment on above: Performed By: #### C MP, LIPID #### [facility] [address] [place] [address] Dr. Karely Perkins Creatinine [Mass/Vol] 0.90 mg/dL Normal 0.70-1.30 [facility] Comment on above: Performed By: #### C MP, LIPID #### [facility] [address] [place] [address] Dr. Karely Perkins EGFR-AF ETHIOPIAN >60 Normal >=60 [facility] Comment on above: Performed By: #### C MP, LIPID #### [facility] [address] [place] [address] Dr. Karely Perkins EGFR-NON AF ETHIOPIAN >60 Normal >=60 [facility] Comment on above: Performed By: #### C MP, LIPID #### [facility] [address] [place] [address] Dr. Karely Perkins Globulin (S) [Mass/Vol] 3.6 g/dL Normal [facility] Comment on above: Performed By: #### C MP, LIPID #### [facility] [address] [place] [address] Dr. Karely Perkins Glucose [Mass/Vol] 109 mg/dL Critically high 74-106 [facility] Comment on above: Performed By: #### C MP, LIPID #### [facility] [address] [place] [address] Dr. Karely Perkins Potassium [Moles/Vol] 4.1 mmol/L Normal 3.5-5.1 [facility] Comment on above: Performed By: #### C MP, LIPID #### [facility] [address] [place] [address] Dr. Karely Perkins Protein [Mass/Vol] 7.3 g/dL Normal 6.4-8.2 [facility] Comment on above: Performed By: #### C MP, LIPID #### [facility] [address] [place] [address] Dr. Karely Perkins Sodium [Moles/Vol] 144 mmol/L Normal 136-145 [facility] Comment on above: Performed By: #### C MP, LIPID #### [facility] [address] [place] [address] Dr. Karely Perkins Urea nitrogen [Mass/Vol] 20.0 mg/dL Critically high 7.0-18.0 [facility] Comment on above: Performed By: #### C MP, LIPID #### [facility] [address] [place], [place] [address] Dr. Karely Perkins Urea nitrogen/Creatinine [Mass ratio] 22.2 mg/mg Normal [facility] Comment on above: Performed By: #### C MP, LIPID #### [facility] [address] [place], [place] [address] Dr. Karely Perkins US SCROTUMon 11-18-2021 US [...] by: ZULEMA HENDRICKSON Date: 2021-11-18 12:10 Normal [facility] Vital Signs Date Time Vital Sign Value Performing Clinician Faci lity 09-03-2024 12:37-0400 Body height 170.18 cm Reva METZGER Work Phone: [facility] 09-03-2024 12:37-0400 Body mass index (BMI) [Ratio] 24.2 kg/m2 Reva METZGER Work Phone: [facility] 09-03-2024 12:37-0400 Body weight 70.08 kg Reva METZGER Work Phone: [facility] 09-03-2024 12:37-0400 Diastolic blood pressure 81 mm[Hg] Reva Shiva NATURAL [employer] FI[employer] PROCESSING SUPERVISOR-C Work Phone: [facility] 09-03-2024 12:37-0400 Heart rate 62 /min Reva Shiva [employer] PROCESSING SUPERVISOR-C Work Phone: [facility] 09-03-2024 12:37-0400 SaO2% (BldA) [Mass fraction] 99 % Reva Shiva NATURAL G[employer] FIELD PROCESSING SUPERVISOR-C Work Phone: [facility] 09-03-2024 12:37-0400 Systolic blood pressure 148 mm[Hg] Reva Shiva NATURAL G[employer] FI[employer] PROCESSING SUPERVISOR-C Work Phone: [facility] 04-26-2024 10:05-0500 Body height 170.2 cm Pacc 1 Work Phone: [facility] 04-26-2024 10:05-0500 Body mass index (BMI) [Ratio] 25.55 kg/m2 Pacc 1 Work Phone: [facility] 04-26-2024 10:05-0500 Body temperature 97.9 [degF] Pacc 1 Work Phone: [facility] 04-26-2024 10:05-0500 Body weight 74 kg Pacc 1 Work Phone: [facility] 04-26-2024 10:05-0500 Diastolic blood pressure 88 mm[Hg] Pacc 1 Work Phone: [facility] 04-26-2024 10:05-0500 Heart rate 86 /min Pacc 1 Work Phone: [facility] 04-26-2024 10:05-0500 Respiratory rate 16 /min Pacc 1 Work Phone: [facility] 04-26-2024 10:05-0500 SaO2% (BldA) [Mass fraction] 99 % Pacc 1 Work Phone: [facility] 04-26-2024 10:05-0500 Systolic blood pressure 144 mm[Hg] Pacc 1 Work Phone: [facility] 01-10-2024 13:49-0500 Blood Pressure Location Jaciel NILL [facility] [place] 01-10-2024 13:49-0500 Diastolic blood pressure 94 mm[Hg] Jaciel N[facility] [place] 01-10-2024 13:49-0500 Heart rate 72 /min Jaciel NILL [facility] [place] 01-10-2024 13:49-0500 Respiratory rate 16 /min Jaciel NILL [facility] 01-10-2024 13:49-0500 Systolic blood pressure 146 mm[Hg] Jaciel NILL [facility] 11-21-2023 13:38-0400 Blood Pressure Location Jaciel NILL [facility] 11-21-2023 13:38-0400 Diastolic blood pressure 84 mm[Hg] Jaciel NILL [facility] 11-21-2023 13:38-0400 Heart rate 72 /min Jaciel NILL [facility] 11-21-2023 13:38-0400 Respiratory rate 16 /min Jaciel NILL [facility] 11-21-2023 13:38-0400 Systolic blood pressure 136 mm[Hg] Jaciel NILL [facility] 07-11-2023 13:24-0400 Blood Pressure Location Jaciel N[facility] [place] 07-11-2023 13:24-0400 Diastolic blood pressure 80 mm[Hg] Jaciel NILL [facility] 07-11-2023 13:24-0400 Heart rate 72 /min Jaciel HENRY [facility] 07-11-2023 13:24-0400 Respiratory rate 16 /min Jaciel HENRY [facility] 07-11-2023 13:24-0400 Systolic blood pressure 126 mm[Hg] Jaciel HENYR [facility] 06-07-2023 11:36-0400 Body height 170.2 cm Lakeisha Smitholl FISH CUTTER[employer]TECHNICAL SME Work Phone: [facility] 06-07-2023 11:36-0400 Body mass index (BMI) [Ratio] 25.31 kg/m2 Lakeisha Smitholl FISH C[employer]TER[employer]TECHNICAL SME Work Phone: [facility] [employer] [facility] 06-07-2023 11:36-0400 Body weight 73.3 kg Lakeisha Smitholl [employer] C[employer]TECH[employer]ME Work Phone: [facility] 06-07-2023 11:36-0400 Diastolic blood pressure 95 mm[Hg] Lakeisha Jung [employer]TECH[employer]ME Work Phone: [facility] 06-07-2023 11:36-0400 Heart rate 81 /min Lakeisha Jung [employer] C[employer]TECH[employer]ME Work Phone: [facility] 06-07-2023 11:36-0400 Systolic blood pressure 178 mm[Hg] Lakeisha Jung [employer] C[employer]TER[employer]TECHN[employer]ME Work Phone: [facility] Encounters Encounter Date Encounter Type Care Provider Facility Start: 09-03-2024 End: 09-03-2024 ambulatory Reva METZGER Work Phone: [facility] Work Phone: Start: 09-03-2024 End: 09-03-2024 Patient encounter procedure Rupal Velazquez [facility] Work Phone: Start: 05-23-2024 End: 05-23-2024 ambulatory REVA SHANNON Facility:[facility] Start: 05-23-2024 End: 05-23-2024 Patient encounter procedure Desiree Rooney MD Work Phone: Ophthalmology Comment on above: Pseudophakia of both eyes (Primary Dx); Fourth nerve palsy of left eye Start: 05-22-2024 End: 05-22-2024 ambulatory DESIREE ROONEY Facility:[facility] Start: 05-22-2024 End: 05-22-2024 Patient encounter procedure Nanette Villagomez Arina OD Work Phone: Ophthalmology Comment on above: Pseudophakia, right eye (Primary Dx); Combined 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; Fourth nerve palsy of left eye Start: 05-01-2024 End: 05-01-2024 ambulatory DESIREE ROONEY Facility:[facility] Start: 04-26-2024 End: 04-26-2024 Patient encounter procedure [facility] Work Phone: Ophthalmology Comment on above: Combined forms of ag e-related cataract of right eye; Combined 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 Start: 04-26-2024 End: 04-26-2024 Admission to establishment [facility] [place] [facility] Work Phone: Pre Anesthesia Start: 04-26-2024 End: 04-26-2024 ambulatory DESIREE ROONEY Facility:[facility] Start: 04-26-2024 End: 04-26-2024 Anesthesia consultation [facility] [place] [facility] Work Phone: Pre Anesthesia Comment on above: Pre-op evaluation (P rimary Dx); Hyperlipidemia, unspecified hyperlipidemia type; Gastroesophageal reflux disease without esophagitis Start: 04-26-2024 Encounter for other preprocedural examination DESIREE ROONEY [facility] Start: 04-26-2024 End: 04-26-2024 Preprocedural examination done [facility] [place] 1 Work Phone: [facility] Work Phone: Start: 04-10-2024 End: 04-10-2024 ambulatory DAVY GRAY Facility:[facility] Start: 04-02-2024 End: 04-02-2024 ambulatory DESIREE ROONEY Facility:[facility] Start: 04-02-2024 End: 04-02-2024 Patient encounter procedure Desiree Rooney MD Work Phone: Ophthalmology Comment on above: Combined forms of ag e-related cataract of right eye (Primary Dx); Combined 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; Anatomical narrow angle, bilateral; Fourth nerve palsy of left eye Start: 02-06-2024 End: 02-06-2024 ambulatory Jaciel HENRY Facility:[facility] Start: 02-06-2024 End: 02-06-2024 Patient encounter procedure Jaciel HENRY [facility] Start: 01-24-2024 End: 01-24-2024 ambulatory Jaciel HENRY Facility:[facility] Start: 01-24-2024 End: 01-24-2024 Patient encounter procedure Jaciel HENRY [facility] Start: 01-17-2024 End: 01-17-2024 ambulatory Jaciel Henry Facility:[facility] Start: 01-17-2024 End: 01-17-2024 Departed Referred Jaciel Henry MD Work Phone: [facility] [place] [facility] [place] [facility] Start: 01-17-2024 End: 01-17-2024 ambulatory Jaciel R GABINOL Facility:CD:[id number] Start: 01-10-2024 End: 01-10-2024 ambulatory Jaciel R ELAINE Facility:[facility] Start: 01-10-2024 End: 01-10-2024 Patient encounter procedure Jaciel HENRY [facility] Start: 01-03-2024 Non-patient / Non-visit Armin Henry MD Work Phone: [facility] Work Phone: Start: 11-21-2023 End: 11-21-2023 ambulatory Jaciel HENRY Facility:[facility] Start: 11-21-2023 End: 11-21-2023 Patient encounter procedure Jaciel HENRY [facility] Start: 10-18-2023 ambulatory [facility] Facilit y:[facility] [place] Start: 08-29-2023 End: 08-29-2023 ambulatory Jaciel HENRY Facility:[facility] Start: 08-29-2023 End: 08-29-2023 Patient encounter procedure Jaciel HENRY [facility] Start: 08-09-2023 End: 08-09-2023 ambulatory Jaciel Henry [facility] [place] [facility] Work Phone: Start: 08-09-2023 End: 08-09-2023 Departed Referred DO Jaciel Echavarria Work Phone: [facility] [place] [facility] Start: 08-09-2023 End: 08-09-2023 ambulatory Jaciel HENRY Facility:CD:[id number] Start: 07-24-2023 End: 07-25-2023 Telephone encounter Christie Alcala [facility] Physicians General Surgery Start: 07-20-2023 End: 07-20-2023 ambulatory REVABRISA SHANNON [facility] Start: 07-20-2023 End: 07-20-2023 ambulatory JACIEL ECHAVARRIA [facility] Start: 07-19-2023 End: 07-19-2023 Orders Only Jaciel [...] Telephone encounter Ronda Plunkett CMA [facility] Physicians General Surgery Start: 07-11-2023 End: 07-11-2023 ambulatory REVA SHANNON Facility:[facility] Start: 07-11-2023 End: 07-11-2023 Patient encounter procedure [facility] Start: 06-19-2023 ambulatory REVA SHANNON Facility: [facility] Start: 06-16-2023 ambulatory REVA SHANNON Facility: [facility] Start: 06-07-2023 End: 06-07-2023 ambulatory [facility] Edis [facility] Start: 06-07-2023 End: 06-07-2023 Patient encounter procedure Lakeisha Jung [employer] Work Phone: [facility] Physicians General Surgery Comment on above: Status post laparosc opic cholecystectomy (Primary Dx); Status post umbilical hernia repair, follow-up exam Start: 05-31-2023 Orders Only Not In System Ref Prov [facility] Physicians General Surgery Start: 05-25-2023 End: 05-25-2023 Departed Referred DO Jaciel Echavarria Work Phone: [facility] [place] [facility] Start: 05-25-2023 End: 05-25-2023 ambulatory Jaciel Echavarria [facility] Work Phone: Start: 06-06-2022 End: 06-07-2022 ambulatory REVA SHANNON Facility:[facility]1 Start: 05-18-2022 End: 05-19-2022 ambulatory REVA SHANNON Facility:[facility]1 Start: 11-18-2021 End: 11-19-2021 ambulatory REVA SHANNON Facility:[facility] Start: 05-07-2020 End: 05-07-2020 Patient encounter procedure Wendy Flood Work Phone: [facility] Work Phone: Procedures Date Procedure Procedure Detail Performing Clinician Start: 04-26-2024 IOL BIOMETRY W/ IOL CALC OU (BOTH EYES) Desiree Rooney MD Work Phone: Start: 04-26-2024 ASCAN ONLY - DIAGNOSTIC OU (BOTH EYES) Desiree Rooney MD Work Phone: Start: 01-17-2024 Repair of umbilical hernia Jaciel HENRY Start: 08-09-2023 Colonoscopy Jaciel HENRY Start: 05-27-2023 MULTIPLE LABS Not In System Ref Prov Start: 05-25-2023 Level i surg pathology gross examination only Not In System Ref Prov Start: 05-18-2022 PSA screening REVA SHANNON Comment on above: Performed By: #### PSASC #### [facility] [address] [place] [address] Dr. Karely Perkins Start: 05-07-2020 Imm. administration COVID19 Moderna dose 1 Wendy Flood Work Phone: Start: 05-07-2020 SARS-CoV-2 vaccine, 0.5ml Moderna Wendy Flood Work Phone: Start: 09-23-2015 Colonoscopy Jaciel ELAINE Start: 09-23-2015 Esophagogastroduodenoscopy Jaciel HENRY Excision of [...] Statu s post laparoscopic cholecystectomy Lakeisha Jung [employer] Work Phone: Repair of umbilical hernia Jesusita HENRY Tonsillectomy Jaciel HENRY Plan of Treatment Date Care Activity Detail Author Start: 07-19-2026 Diabetes Screening Diabetes Screening [facility] Start: 04-02-2025 End: 09-24-2025 ASCAN ONLY - DIAGNOSTIC OU (BOTH EYES) ASCAN ONLY - DIAGNOSTIC OU (BOTH EYES) [facility] Imaging Routine Combined forms of age-related cataract of right eye Combined 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 Expected: 04/02/2025, Expires: 09/24/2025 [facility] Comment on above: Expected: 04/02/2025, Expires: Start: 04-02-2025 End: 09-24-2025 IOL BIOMETRY W/ IOL CALC OU (BOTH EYES) IOL BIOMETRY W/ IOL CALC OU (BOTH EYES) [facility] Imaging Routine Combined forms of age-related cataract of right eye Combined 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 Expected: 04/02/2025, Expires: 09/24/2025 [facility] Comment on above: Expected: 04/02/2025, Expires: Start: 07-19-2024 Adult BMI Screening Adult BMI Screening [facility] Start: 07-19-2024 Tobacco Screening Tobacco Screening [facility] Start: 06-06-2024 Adult BMI Screening Adult BMI Screening [facility] Start: 06-06-2024 Tobacco Screening Tobacco Screening [facility] Start: 05-23-2024 End: 05-23-2024 Patient encounter procedure 05/23/2024 8:15 AM EDT Office Visit [facility] Ophthalmology [address] [place] [address] Desiree Rooney MD [address] [facility] [place] [address] Pseudophakia (Primary Dx); Combined forms of age-related [...] Vaccine ( season) Covid-19 Vaccine ( season) [facility] Start: 05-01-2024 End: 05-01-2024 Admission to [...] rmvl insj io lens prosth w/o ecp [facility] Start: 04-26-2024 End: 04-26-2024 Patient encounter procedure 04/26/2024 11:00 AM EST Office Visit [facility] Ophthalmology [address] [place] [address] CATARACT SURGERY RIGHT THEN LEFT TAO Ophthalmology Comment on above: CATARACT SURGERY RIGHT THEN LEFT TAO Start: 04-26-2024 End: 04-26-2024 Admission to same day surgery center 04/26/2024 10:20 AM EST PAT Pre Anesthesia [address] [place] [address] 1, Pacc [place] [address] [place] [address] CATARACT SURGERY RIGHT THEN LEFT TAO Pre Anesthesia Comment on above: CATARACT SURGERY RIGHT THEN LEFT TAO Start: 04-10-2024 End: 04-10-2024 Patient encounter procedure 04/10/2024 3:45 PM EST Office [place] [address] CATARACT SURGERY RIGHT THEN LEFT TAO [employer] [facility] Comment on above: CATARACT SURGERY RIGHT THEN LEFT TAO Start: 03-06-2024 Advance Directive Discussion Advance Directive Discussion [facility] Start: 11-05-2023 Influenza vaccination Influenza Vaccine [facility] Start: 07-20-2023 Subsequent hospital visit by physician 07/20/2023 6:30 AM EDT Hospital Encounter [facility] Med[facility]cine [address] [place] [id number] Jaciel Echavarria, DO [address] [place] [id number] [facility] Start: 07-19-2023 End: 07-18-2024 NM Liver and Biliary ducts and Gallbladder Views NM hepatobiliary system imaging without pharmacologic agent Imaging STAT Abnormal CT of the abdomen Status post laparoscopic cholecystectomy Expected: 07/19/2023, Expires: 07/18/2024 [facility] Work Phone: Comment on above: Expected: 07/19/2023, Expires: Start: 07-18-2023 End: 07-17-2024 NM Liver and Biliary ducts and Gallbladder Views NM hepatobiliary system imaging without pharmacologic agent Imaging Routine Abnormal CT of the abdomen Expected: 07/18/2023, Expires: 07/17/2024 X-1 Work Phone: Comment on above: Expected: 07/18/2023, Expires: Start: 07-18-2023 End: 07-17-2024 RF Guidance for percutaneous replacement of drainage catheter of Biliary ducts and Gallbladder IR biliary drainage catheter internal-external Imaging Routine Abnormal CT of the abdomen Status post laparoscopic cholecystectomy Expected: 07/18/2023, Expires: 07/17/2024 X-1 Work Phone: Comment on above: Expected: 07/18/2023, Expires: Start: 06-04-2020 2nd Dose- COVID Vaccine [facility] Work Phone: Start: 08-23-2011 Fall Risk Screening Fall Risk Screening [facility] Start: 1996 Administration of varicella zoster vaccine Zoster (Shingles) Vaccine (1 of 2) [facility] Start: 1996 Shingrix Vaccine (1 of 2) Shingrix Vaccine (1 of 2) [facility] Start: 08-23-1991 Diabetes Screening Diabetes Screening [facility] Start: 1965 DTaP,Tdap and Td Vaccines (1 - Tdap) DTaP,Tdap and Td Vaccines (1 - Tdap) [facility] Start: 1965 Urine microalbumin profile DTaP,Tdap,Td Vaccine (1 - Tdap) [facility] Start: 1964 Adult BMI Follow Up Plan Adult BMI Follow Up Plan [facility] Start: 1964 Anxiety Screening Anxiety Screening [facility] Start: 1964 Depression Screening Depression Screening [facility] Start: 1964 Hepatitis C screening Hepatitis C Screening [facility] Start: 1958 Depression Screening Depression Screening [facility] Start: 1946 Medicare Annual Wellness Visit Medicare Annual Wellness Visit [facility] End: 07-17-2024 Comprehensive metabolic 2000 panel - Serum or Plasma Comprehensive metabolic panel Lab Routine Abnormal CT of the abdomen 1 Occurrences starting 07/18/2023 until 07/17/2024 [facility] Comment on above: 1 Occurrences starting 07/18/2023 until 07/17/2024 End: 09-11-2025 CORNEAL TOPOGRAPHY PENTACAM OU (BOTH EYES) CORNEAL TOPOGRAPHY PENTACAM OU (BOTH EYES) [facility] Imaging Routine Combined 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 Combined forms of age-related cataract of right eye 1 Occurrences starting 03/20/2024 until 09/11/2025 [facility] Comment on above: 1 Occurrences starting 03/20/2024 until 09/11/2025 End: 09-11-2025 OCT MACULA CIRRUS OU (BOTH EYES) OCT MACULA CIRRUS OU (BOTH EYES) [facility] Imaging Routine Combined 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 Combined forms of age-related cataract of right eye 1 Occurrences starting 03/20/2024 until 09/11/2025 [facility] Work Phone: Comment on above: 1 Occurrences starting 03/20/2024 until 09/11/2025 Immunizations Immunization Date Immunization Notes Care Provider Fa [facility] 11-23-2022 influenza virus vaccine, unspecified formulation Lakeisha Jung [employer] Work Phone: [facility] 12-14-2021 SARS-CoV-2 (COVID-19 ) [id number] Jaciel HENRY [facility] 06-29-2021 SARS-CoV-2 (COVID-19 ) mRNA BNT-162b2 vax Jaciel HENRY [facility] 01-06-2021 SARS-CoV-2 (COVID-19 ) mRNA-1273 vaccine Jaciel LLOYDL [facility] 06-04-2020 SARS-CoV-2 (COVID-19 ) mRNA-1273 vaccine Jaciel HENRY [facility] 05-07-2020 2nd Dose MODERNA COVID-19 Vaccine; Translations: [Moderna COVID-19 Vaccine] Luiz Jimenez [facility] Comment on above: Note: Patient tolera keely well. No signs or symptoms of adverse reactions. Patient waited a minimum of 15 minutes. Payers Date Payer Category Payer Self-pay 2022 Medicare [id number] 2022 Medicare (Managed Care) [employer] [place] [id number] 2011 Unknown 1 - Medicare FQHC CGS PPS [id number] [id number]. [id number] 1959 Medicare [id number] 1959 Medicare [id number] 1959 Unknown [id number] 2.840.1.995453.3.140.1. 20995.5.10.6.3 1946 Unknown [id number] 2.16840.1.032011.3.579.2. 593 1946 Unknown [id number] 2.16840.1.707402.3.579.2. 593 1946 Unknown [id number] 2.16840.1.743138.3.579.2. 593 1946 Unknown [id number] 2.16840.1.928212.3.579.2. 1286 1946 Unknown [id number] 2.16.840.1.739232.3.579.2. 1286 1946 Unknown [id number] 2.16.840.1.869621.3.579.2. 128 1946 Unknown [id number] 2.16.840.1.777274.3.579.2. 128 1946 Unknown [id number] 2.16.840.1.866679.3.579.2. 128 1946 Unknown [id number] 2.16.840.1.334278.3.579.2. 128 1946 Unknown [id number] 2.16.840.1.466204.3.579.2. 1285 1946 Unknown [id number] 2.16.840.1.755688.3.579.2. 1946 Unknown [id number] 2.16.840.1.288419.3.579.2. 72 1946 Unknown [id number] 2.16.840.1.462697.3.579.2. 72 1946 Unknown [id number] 2.16.840.1.781212.3.579.2. 72 1946 Unknown [id number] 2.16.840.1.752495.3.579.2. 72 1946 Unknown [id number] 2.16.840.1.875387.3.579.2. 72 1946 Unknown [id number] 2.16.840.1.202728.3.579.2. 72 1946 Unknown [id number] 2.16.840.1.433962.3.579.2 1946 Unknown [id number] 2.16.840.1.382512.3.579.2. 727 Medicare Medicare Outpatient [id number] Unknown [facility] Health Claims [id number] Unknown [id number] 2.16.840.1.006731.3.579.2. 531 Unknown [id number] 2.16.840.1.174486.3.579.2. 531 Unknown [id number] 2.16.840.1.725583.3.579.2. 531 Social History Date Type Detail Facility Tobacco smoking status Unknown if ever sm oked [facility] Start: 1945 Sex Assigned At Male [facility] Start: 07-11-2023 End: 04-02-2024 Tobacco smoking status Ex-smoker (finding) [facility] [place] Tobacco smoking status Never [facility] [place] Start: 04-02-2024 End: 04-26-2024 Sex Assigned At Male [facility] Start: 01-18-2024 Sex Male (finding) [facility] Start: 03-06-1958 End: 03-06-1983 History of tobacco use Current smoker [facility] Start: 03-06-1958 End: 03-06-1983 History of tobacco use Cigarette Smoker [facility] Start: 04-02-2024 End: 04-26-2024 Cigarettes smoked current (pack per day) - Reported 0.5 [facility] [employer] [facility] Start: 06-07-2023 End: 04-02-2024 Tobacco use and exposure Smokeless tobacco non-user [facility] Start: 04-02-2024 End: 05-23-2024 Alcoholic beverage intake Current drinker of alcohol (finding) [facility] Start: 1945 Sex assigned at Not on file P [facility] Start: 04-26-2024 Alcohol Comment weekly [facility] Start: 09-03-2024 Tobacco smoking stat us NHIS Never smoked tobacco (finding) [facility] Medical Equipment Procedure Code Equipment Code Equipment Origin al Text Equipment Identifier Dates [id number] Clarisa on [facility] - [id number] Start: 05-01-2024 [id number] Mckenna on [facility] - [id number] Start: 05-22-2024 Functional Status Date Assessment Result Facility 02-06-2024 Functional Status N/A [facility] [place] 01-24-2024 Functional Status N/A [facility] [place] 01-10-2024 Functional Status N/A [facility] [place] 11-21-2023 Functional Status N/A [facility] [place] 07-11-2023 Functional Status N/A [facility] [place] Clinical Notes 06-07-2023 to 05-23-2024 Desiree Rooney MD - 05/23/2024 8:36 AM Nanette Torres OD - 05/22/2024 10:20 AM Kellie Escalera COA - 04/26/2024 11:04 AM Tyler Sepulveda APRN.TECHNICAL SME - 04/26/2024 10:20 AM EST Note Date & Type Note Facility 05-23-2024 Note HNO ID: [id number] Author: DESIREE ROONEY MD Service: ? Author Type: Physician Type: Progress Notes Filed: 05/23/2024 09:00 Note Text: ASSESSMENT/PLAN: 1. Pseudophakia - ICD9: V43.1, ICD10: Z96.1 (primary diagnosis) - 1 day PO S/P PC IOL Left eye (05/22/2024) Aim: [place] doing well; He is happy with the improvement in his vision. - S/P PC IOL Right eye (05/01/2024) Aim: [place] The patient was instructed to.... - Use [...] of its relevant components. Desiree Rooney MD [facility] 05-23-2024 History of Present illness Narrative ASSESSMENT/PLAN: 1. Pseudophakia - ICD9: V43.1, ICD10: Z96.1 (primary diagnosis) - 1 day PO S/P PC IOL Left eye (05/22/2024) Aim: [place] doing well; He is happy with the improvement in his vision. - S/P PC IOL Right eye (05/01/2024) Aim: [place] The patient was instructed to.... - Use [...] Desiree Rooney MD documented in this encounter [facility] 05-22-2024 Note HNO ID: [id number] Author: NANETTE SANTA OD Service: ? Author Type: LEAD BUSINESS ANALYST Type: Progress Notes Filed: 05/22/2024 10:22 Note [...] Cataract surgery May 22, 2024 10:20 AM [facility] 05-22-2024 History of Present illness Narrative [...] 2024 10:20 AM documented in this encounter [facility] 04-26-2024 Note Date of Procedure 04/26/2024. Buyer Information Filler Machine Operator: ARNEL. Notes Measurements only - see Procedure Record under Scanned Documents for signed results. [facility] 04-26-2024 Note Date of Procedure 04/26/2024. Buyer Information Filler Machine Operator: ARNEL. [facility] 04-26-2024 Note HNO ID: [id number] Author: KELLIE ALCARAZ COA Service: ? Author Type: Buyer Type: Progress Notes Filed: 04/26/2024 11:17 Note Text: Confirmed with patient PLANO Both eyes Drop instructions given Co-manage with Roshan Gray, paper signed AUBRIE Chen April 26, 2024 [facility] 04-26-2024 History of Present illness Narrative Confirmed with patient PLANO Both eyes Drop instructions given Co-manage with Roshan Gray, paper signed AUBRIE Chen April 26, [address] [facility] 04-26-2024 History and physical note Images from the original note were not included. [facility] HISTORY AND PHYSICAL EXAMINATION SERVICE DATE: 04/26/2024 SERVICE TIME: 10:02 AM PRIMARY CARE PHYSICIAN: Reva Shannon CNP, TECHNICAL SME REASON FOR VISIT: Abigail Washington is a [...] have a large neck STOP-Bang Score: 2 [id number] Score: Age: >=75 Sex: male CHF history: No Hypertension history: No Stroke/TIA/thromboembolism history: No Vascular disease history: No Diabetes history: No [id number] Score: 2 ARISCAT Score: Age: 51-80 Preoperative [...] fevers. Neuro: No history of TIA's, stroke, PROTOHISTORIAN tumor, impaired sensorium, hemiplegia, paraplegia or quadraplegia. No neurological symptoms or problems. Respiratory: No history of current cough or dyspnea, or pneumonia in the past 6 weeks. No history of respiratory/pulmonary symptoms or problems. Cardiovascular: No history of HTN requiring medication, no history of angina, CHF, NV, cardiac surgery or stents. Denies rest pain, [...] Disease) Covid Immunization Dates Upcoming Covid-19 Vaccine (2023-) Next due on 05/06/2024 11/07/2023 Imm Admin: [...] Abigail Washington DATE: 04/26/2024 TIME: 12:[address] [facility] 04-26-2024 History and physical note Images from the original note were not included. [facility] HISTORY AND PHYSICAL EXAMINATION SERVICE DATE: 04/26/2024 SERVICE TIME: 10:02 AM PRIMARY CARE PHYSICIAN: Reva Shannon CNP, CNP REASON FOR VISIT: Abigail Washington is a [...] have a large neck STOP-Bang Score: 2 [id number] Score: Age: >=75 Sex: male CHF history: No Hypertension history: No Stroke/TIA/thromboembolism history: No Vascular disease history: No Diabetes history: No [id number] Score: 2 ARISCAT Score: Age: 51-80 Preoperative [...] fevers. Neuro: No history of TIA's, stroke, PROTOHISTORIAN tumor, impaired sensorium, hemiplegia, paraplegia or quadraplegia. No neurological symptoms or problems. Respiratory: No history of current cough or dyspnea, or pneumonia in the past 6 weeks. No history of respiratory/pulmonary symptoms or problems. Cardiovascular: No history of HTN requiring medication, no history of angina, CHF, NV, cardiac surgery or stents. Denies rest pain, [...] TIME: 12:50 PM documented in this encounter [facility] 04-26-2024 Instructions Tyler Beltran APRN.CNP - 04/26/2024 10:02 AM EST Images from the original note were not included. [facility] PATIENT PREOPERATIVE INSTRUCTIONS Desiree Rooney MD has scheduled you for your procedure at this surgery center: [facility]: [phone] --[address] [place] [place] [address]. Please read below carefully for your personalized [...] office. If you are currently using a eqxb-bgt-owsy injectable or oral medication for diabetes or [...] Procedures: - YOU MUST HAVE A RESPONSIBLE LEAD MINER BLASTING TAKE YOU HOME. A POWER PRESS TENDER OR PERSONAL HEALTH COACH CANNOT BE MADE A RESPONSIBLE LEAD MINER BLASTING. - We recommend that a responsible person stays with you overnight to take care of you. - You cannot stay in a hotel alone after outpatient surgery. You will not be permitted to have your surgery, if you do not have someone to take care of you. If you already have an Advance Directive, please fax a copy to [phone] or email to for it to be [...] into your chart that day. Tyler Beltran APRN.WENDY documented in this encounter [facility] 04-02-2024 Note HNO ID: [id number] Author: DESIREE ROONEY MD Service: ? Author [...] kind referral! Allergies: see list - Aim: [place] OU. Patient understands the need for glasses [...] work and [facility] [place] [facility] [place] [facility]; offered cataract Surgery OD/OS soon. Copy [...] its relevant components. Desiree Rooney MD 04/02/24 [facility] 04-02-2024 History of Present illness Narrative [...] kind referral! Allergies: see list - Aim: [place] OU. Patient understands the need for glasses [...] work and now enjoys living [place] [facility]; offered cataract Surgery OD/OS soon. Copy [...] Rooney MD 04/02/[address] [facility] 01-24-2024 Hospital Discharge instructions Follow Up Care 01/24/2024 14:55:08 With:ELAINE FRANCISCO, CASE Bautista Address: [address] [place], [place] [id number]- When: only if needed [facility] General Surgery [place] 01-10-2024 Note General Surgery Offi ce/Clinic Note [...] biloma was present; area reportedly aspirated at [facility]; will obtain records; just noticed bulges [...] Cholecystectomy, Excision o (more content not included)... [facility] Comment on above: Result Comment: Elec tronically Signed By: ELAINE FRANCISCO, Jaciel Hall\Date and Time Signed: 01/10/24 16:25 EST 01-10-2024 Evaluation + Plan note Diagnostic Tests PendingHepatic Function Panel 01/10/24Basic Metabolic Panel 01/10/24CBC w/ Auto Diff 01/10/24 [facility] [place] 11-21-2023 Note General Surgery Offi ce/Clinic Note [...] required percutaneous drainage, which was done in [place]; no pain or skin changes, no N/V [...] Mother and Bro (more content not included)... [facility] Comment on above: Result Comment: Elec tronically Signed By: ELAINE FRANCISCO, Jaciel Keen.zuleyma\Date and Time Signed: 11/21/23 17:00 EDT 07-24-2023 [...] questions. documented in this encounter [facility] [employer] 07-24-2023 Telephone encounter Note The patient called [...] he did do on his gallbladder surgery. [facility] 07-24-2023 Telephone encounter Note ----- Message from [...] up with me p.r.n.. Thanks, Dr. Kowalski [facility] 07-24-2023 Telephone encounter Note Spoke with patient regarding Dr. Echavarria's message. Patient verbally understood with no further questions. [facility] 07-24-2023 Miscellaneous Notes Cora says that she called the patient to schedule HIDA but, he told her that he already had that done, at [facility]. I spoke to my co-worker & she reports that he decided to change where he wanted it done. Without letting us know. documented in this encounter [facility] 07-24-2023 Telephone encounter Note Cora says that she called the patient to schedule HIDA but, he told her that he already had that done, at [facility]. I spoke to my co-worker & she reports that he decided to change where he wanted it done. Without letting us know. [facility] 07-17-2023 Miscellaneous Notes Received a call from patient stating Reva Shannon CNP ordered a CT for patient. Dr. Echavarria performed a robotic cholecystectomy at [facility] on 05/24/23. Was informed that the CT showed some fluid. Patient stated Reva Shannon CNP is going to forward patient's CT results. Once we receive them I will inform Dr. Echavarria. documented in this encounter [facility] 07-17-2023 Telephone encounter Note Received a call from patient stating Reva Shannon CNP ordered a CT for patient. Dr. Echavarria performed a robotic cholecystectomy at [facility] on 05/24/23. Was informed that the CT showed some fluid. Patient stated Reva Shannon CNP is going to forward patient's CT results. Once we receive them I will inform Dr. Echavarria. [facility] 07-11-2023 Note Chief Complaint consultation for positive [...] virus vaccine, inactivated 11/23/2022 Recorded SARS-CoV-2 (COVID-19) mRNAMUL.[id number] 12/14/2021 Recorded SARS-CoV-2 (COVID-19) mRNA BNT-162b2 vax 06/29/2021 Recorded SARS-CoV-2 (COVID-19) mRNA-1273 vaccine 01/06/2021 Recorded SARS-CoV-2 (COVID-19) mRNA-1273 vaccine 06/04/2020 Recorded SARS-CoV-2 (COVID-19) mRNA-1273 vaccine 05/07/2020 Recorded [facility] Comment on above: Result Comment: [...] Status post laparoscopic cholecystectomy [Z90.49] J[facility]ON SINGH [facility] [place] This note was created with the assistance of a speech recognition program. While intending to generate a timely document that accurately reflects the content of the visit, no guarantee can be provided that every grammatical or spelling mistake has been or will be identified or corrected. Thank you for your understanding. JEVON Singh 06/07/23 1150 documented in this encounter [facility] Chief complaint+Reason for v isit Narrative REFERRAL DR DAVY GRAY/ 4TH NERVE PALSY September 03, 2024 12:33pm [facility] Work Phone: Evaluation + Plan note No data available for this section [facility] evaluation + Plan note Future Appointments Appointment Date:10/18/2023 08:15:00 AM Scheduled Provider:Renate Brock MD Location:[facility] Appointment Type:URO New Patient [facility] [place] Evaluation + Plan note Future Appointments Appointment Date:02/06/2024 08:40:00 AM Scheduled Provider:Jaciel HENRY MD Location:[facility] Appointment Type:GS Post Op 15 [facility] evaluation noteNo assessment information available [facility] Work Phone: evaluation note* Diagnosis Combined forms of age-related cataract [...] of senile cataract [facility] Diagnosis Abnormal CT of the abdomen- Primary Nonspecific (abnormal) findings on radiological and other examination of abdominal area, including retroperitoneum Status post laparoscopic cholecystectomy Other postprocedural status [facility] Diagnosis Abnormal CT of the abdomen- Primary Nonspecific (abnormal) findings on radiological and other examination of abdominal area, including retroperitoneum [facility] Diagnosis Abnormal CT of the abdomen- Primary Nonspecific (abnormal) findings on radiological and other examination of abdominal area, including retroperitoneum Status post laparoscopic cholecystectomy Other postprocedural status [facility] Diagnosis Status post laparoscopic cholecystectomy- Primary Other postprocedural status Status post umbilical hernia repair, follow-up exam Follow-up examination, following other surgery [facility] Diagnosis Pre-op evaluation- Primary Preoperative examination, [...] PCP [facility] Diagnosis Combined forms of age-related cataract [...] of senile cataract [facility] this [facility]* Diagnosis Pre-op evaluation- Primary Preoperative examination, [...] of senile cataract 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, fourth or trochlear nerve palsy documented in this encounter [facility] Discharge instructions No data available for this section [facility] InstructionsNot on filedocumented in this encounter [facility] filed[facility] in [facility] filedocumented in this encounter [facility] on filedocumented in this encounter [facility] on filedocumented in this encounter [facility] No data available for this section [facility] Reason for referral (narrative)No reason for referral [facility] Work Phone: Reason for Referral Specialty Diagnoses / Procedures Referred By Mercedes stroud Referred To Contact Radiology Diagnoses Abnormal CT of the abdomen Status post laparoscopic cholecystectomy Procedures IR biliary drainage catheter internal-external Jaciel Echavarria, [address] [place] [address] Referral ID Status Reason Start Date Expiration Date V isits Requested Visits Authorized [id number] Pending Review 07/18/2023 07/17/2024 1 1 Specialty Diagnoses / Procedures Referred By Mercedes stroud Referred To Contact Radiology Diagnoses Abnormal CT of the abdomen Procedures NM hepatobiliary system imaging without pharmacologic agent Jaciel Echavarria, DO [address] [place] [address] Referral ID Status Reason Start Date Expiration Date V isits Requested Visits Authorized [id number] Pending Review 07/18/2023 07/17/2024 5 5 Specialty Diagnoses / Procedures Referred By Contac t Referred To Contact Radiology Diagnoses Abnormal CT of the abdomen Status post laparoscopic cholecystectomy Procedures NM hepatobiliary system imaging without pharmacologic agent Jaciel Echavarria, [address] [place] [address] [facility] [address] [place] [address] Phone: [phone] Referral ID Status Reason Start Date Expiration Date V isits Requested Visits Authorized [id number] Authorized 07/19/2023 07/18/2024 5 5 Assessments Findings Encounter Date Encounter for Immunization 1st COVID Vaccine susan Nguyen Remig[employer] TECHNICAL SME 05/07/2020 Instructions Instructions not supported for this document type No Instructions Recorded History of Present Illness History of Present Illness not supported for this document type No History of Present Illness Recorded Family History Relationship Condition Age at Onset Recorded Date/T sadie mother Depression Unknown Diabetes mellitus Unknown Hypertension Unknown father Heart disease Unknown High blood cholesterol Unknown sister Malignant neoplasm Unknown Review of System Review of Systems not supported for this document type No Review of Systems Recorded Physical Exam Physical Exam not supported for this document type No Physical Exam Recorded Advance Directives Advance Directive Response Recorded Date/ Time Advance Directives No August 09 4 12:20pm Advance Directive Response Recorded Date/ Time [...] and content) DATE CREATED AUTHOR 06/11/2022 [facility] DATE CREATED AUTHOR AUTHOR'S ORGANIZ ATION 07/22/2023 [facility] DATE CREATED AUTHOR AUTHOR'S ORGANIZ ATION 08/06/2023 [facility] DATE CREATED AUTHOR AUTHOR'S ORGANIZ ATION 01/19/2024 [facility] DATE CREATED AUTHOR AUTHOR'S ORGANIZ ATION 02/07/2024 [facility] DATE CREATED AUTHOR AUTHOR'S ORGANIZ ATION 07/12/2024 [facility] Teams (unrecognized sec tion and content) Team [...] Henry MD FACS Attending Provider Active Start: January 17, 2024 End: January 17, 2024 Criminal Justice Program Director Relationship Specialty Start Date End Date Reva Shannon APRN-CNP [address] [facility] [address], [place] [address] PCP - General Family Medicine 06/01/23 Criminal Justice Program Director Relationship Specialty Start Date End Date Reva Shannon APRN-TECHNICAL SME [address] [facility] [address], [place] [address] PCP - General Family Medicine 06/01/23 Criminal Justice Program Director Relationship Specialty Start Date End Date Reva Shannon APRN-TECHNICAL SME [address] [facility] [address], [place] [address] PCP - General Family Medicine 06/01/23 Criminal Justice Program Director Relationship Specialty Start Date End Date Reva Shannon APRN-TECHNICAL SME [address] [facility] [address], [place] [address] PCP - General Family Medicine 06/01/23 Criminal Justice Program Director Relationship Specialty Start Date End Date Reva Shannon APRN-TECHNICAL SME [address] [facility] [address], [place] [address] PCP - General Family Medicine 06/01/23 Criminal Justice Program Director Relationship Specialty Start Date End Date Reva Shannon APRN-WENDY [address] [place] [address] PCP - General Family Medicine 06/01/23 Criminal Justice Program Director Relationship Specialty Start Date End Date Reva Shannon CNP [address] [place] [address] PCP - General Internal Medicine 04/10/24 Criminal Justice Program Director Relationship Specialty Start Date End Date Reva Shannon CNP [address] [place] [address] PCP - General Internal Medicine 04/10/24 Criminal Justice Program Director Relationship Specialty Start Date End Date Reva Shannon CNP [address] [place] [id number] PCP - General Internal Medicine 04/10/24 Criminal Justice Program Director Relationship Specialty Start Date End Date Reva Shannon CNP [address] [place] [id number] PCP - General Internal Medicine 04/10/24 Team Status: Active Member Role Status Dates YASSINE Ribeiro Primary Care Provider Active Team Status: Inactive Member Role Status Dates Rupal Velazquez DO Attending Provider Active Sta rt: September 03, 2024 End: September 03, 2024 YASSINE Ribeiro Primary Care Provider Active Start: September 03, 2024 End: September 03, 2024 Goals (unrecognized section and content) Goals may be documented in a n alternate section Source Comments (unrecognize d section and content) In the event this informatio n is protected by the Federal Confidentiality of Alcohol and Drug Abuse Patient Records regulations: The Federal rules restrict any use of the information to criminally investigate or prosecute any alcohol or drug abuse patient.[facility] the event this information is protected by the Federal Confidentiality of Alcohol and Drug Abuse Patient Records regulations: The Federal rules restrict any use of the information to criminally investigate or prosecute any alcohol or drug abuse patient.[facility] the event this information is protected by the Federal Confidentiality of Alcohol and Drug Abuse Patient Records regulations: The Federal rules restrict any use of the information to criminally investigate or prosecute any alcohol or drug abuse patient.[facility] the event this information is protected by the Federal Confidentiality of Alcohol and Drug Abuse Patient Records regulations: The Federal rules restrict any use of the information to criminally investigate or prosecute any alcohol or drug abuse patient.[facility] the event this information is protected by the Federal Confidentiality of Alcohol and Drug Abuse Patient Records regulations: The Federal rules restrict any use of the information to criminally investigate or prosecute any alcohol or drug abuse patient.[facility] Reason for Visit (unrecogniz ed section and content) Reason Comments Cataract Evaluation Reason Comments Post-op Post op davinci chol ecystectomy and umbilical hernia repair performed 05/24/23 at [facility] Reason Comments Pre-Op Visit Reason Comments Pre-Op Exam Reason Comments Post-Op Visit Specialty Diagnoses / Procedures Referred By Mercedes stroud Referred To Contact [facility] Diagnoses Combined 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 Combined 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 [H25.812] Procedures XCAPSL CTRC RMVL INSJ IO LENS PROSTH W/O ECP OPH BMTRY PRTL COHER INTRFRMTRY IO LENS PWR GEOVANNA PHACOEMULSIFICATION CATARACT IMPLANT INTRAOCULAR LENS W/O ENDOSCOPIC CYCLOPHOTOCOAGULATION OPHTHALMIC BIOMETRY BY PARTIAL COHERENCE INTERFEROMETRY W/INTRAOCULAR LENS POWER CALCULATION Ambulatory Surgery [address] [place] [address] Phone: tel: Referral ID Status Reason Start Date Expiration Date Visits Re quested Visits Authorized [id number] 1 1 Reason Comments Post-op (Ophthalmology) Both [...] BE BASED ON THE PRIMARY CLINICAL RECORDS. [employer] provides no warranty or guarantee of the accuracy or completeness of information in this document.
--- NOTE | 2024-09-24 08:31 | MR_ITS ---
The [address] [address] Patient Name: ABIGAIL BIRMINGHAM MRN: [id number] date: 1945 Sex: M Assigned Patient Location: LAB Current Patient Location: LAB Accession/Order Number: [id number] Exam Date: 09/24/2024 11:58 Report Date: 09/24/2024 12:00 At the request of: JARROD GARZA DO Procedure: MR angio head wo con MR angio head wo con 09/24/2024 10:30 AM SIGN OF SYMPTOMS: ^Abducens nerve paralysis COMPARISON: MRI brain 09/24/2024 FINDINGS: ICAs are patent. ACAs, MCAs are patent. Anterior anterior communicate artery patent. P-comm is not visualized. Vertebral arteries, picas, basilar artery and superior cerebellar arteries are patent. No aneurysm. MR/MR angio head wo con IMPRESSION: No focal stenosis, occlusion, or aneurysmal dilatation. Impression dictated by: Houston Allred M.D. 09/24/2024 12:00 PM Dictation Location[facility] Electronically authenticated by: [id number] Y Date: 09/24/2024 12:00
--- NOTE | 2024-09-24 08:31 | MR_ITS ---
The [address] [address] Patient Name: ABIGAIL BIRMINGHAM MRN: [id number] date: 1945 Sex: M Assigned Patient Location: LAB Current Patient Location: LAB Accession/Order Number: [id number] Exam Date: 09/24/2024 11:31 Report Date: 09/24/2024 11:41 At the request of: JARROD GARZA DO Procedure: MR head/brain wo/w con MRI BRAIN WITHOUT AND WITH INTRAVENOUS CONTRAST CLINICAL DATA: 6 cranial nerve nerve paralysis, diplopia COMPARISON: None FINDINGS: No restricted diffusion. Mild generalized involutional changes with prominence of the ventricles and sulci. No shift midline structure. Basal cisterns are patent. Mild periventricular and subcortical T2 prolongation identified nonspecific, true to chronic small vessel ischemic disease. No shift midline structure. Basal cisterns are patent. Major intracranial arterial vascular flow voids are preserved. No marrow signal abnormality identified along the clivus. Prepontine cistern unremarkable. Slight prominence of the optic nerve sheaths along the optic nerves. No evidence of abnormal postcontrast enhancement. MR/MR head/brain wo/w con IMPRESSION: Mild chronic small vessel ischemic disease. Slight prominence of the optic nerve sheaths may raise possibility for increased intracranial pressure. Otherwise, no other MRI findings to suggest an etiology for the abducens nerve palsy. Negative for acute intracranial process by MRI Impression dictated by: Houston Allred M.D. 09/24/2024 11:41 AM Dictation Location: [place] [address] Electronically authenticated by: [id number] Y Date: 09/24/2024 11:41
[2024-09-24 08:40] LABS: Estimated GFR (African America >60 (>=60 mL/min/1.73m^2); Estimated GFR (Non-African Ame >60 (>=60 mL/min/1.73m^2)
--- NOTE | 2024-09-24 08:54 | XR_ITS ---
The [address] [address] Patient Name: ABIGAIL BIRMINGHAM MRN: [id number] date: 1945 Sex: M Assigned Patient Location: LAB Current Patient Location: LAB Accession/Order Number: [id number] Exam Date: 09/24/2024 09:27 Report Date: 09/24/2024 09:28 At the request of: JARROD GARZA DO Procedure: XR foreign body eye FLAVIA ORBIT one view. Reason for exam: Pre-MRI. FINDINGS: No radiopaque foreign body is seen. Dental implants are noted. Mastoid air cells are well pneumatized. Paranasal sinuses are grossly clear. XR/XR foreign body eye FLAVIA IMPRESSION: No radiopaque foreign body is seen. Impression dictated by: Jose J Stephen Jr.OJohnathon 09/24/2024 9:28 AM Dictation Location: [place] [address] Electronically authenticated by: [id number] Y Date: 09/24/2024 09:28
== END 2024-09-24 08:24 | disposition home or self-care (01) ==
LOC: LAB 08:23
PROVIDERS: Pathology Anatomic Pathology & Clinical Pathology; PCP Nurse Practitioner Family; Visit Provider Psychiatry & Neurology Neurology
DX: H49.20 Sixth [abducent] nerve palsy, unspecified eye (principal); H53.2 Diplopia
CPT/HCPCS: 36415; 70030; 70544; 70553; 82565; A9575

== ENCOUNTER 2024-10-17 13:42 | Outpatient (OUT) | payer MEDICARE, SELFPAY ==
--- OUTSIDE RECORDS SUMMARY | 2024-10-17 14:03 | XMS_ITS | CCD ---
Author Organization [facility] Care Team Providers Care Assistant Plant Control Operator Name Role Phone Luiz Jimenez Unavailable SHIVA, [...] ., DR PAT Consulting Unavailable ZIEBSHANITA, DR ZULEMA Obando Consulting Unavailable DO Jaciel Echavarria Attending Provider [phone] REVA SHANNON S Primary Care Physician [phone] LAKEISHA JUNG Attending Unavailable SHIVA, REVA S [...] Henry Admitting Unavailable Jaciel Henry Attending Unavailable Richardsonl Jaciel FRANCISCO Attending Provider SHIVA, REVA S [...] Unavailable Unavailable Primary Care Provider Unavailnatalya Shannon DIRECTOR DATABASE-PLATFORM INSPECTOR, Reva S Primary Care Provider Unavailable Primary Care Provider Unavailnatalya Shannon PLATFORM INSPECTOR, Reva S Primary Care Provider [phone] DESIREE ROONEY Admitting Unavailable TAO, DESIREE A [...] Care Unavailable Rupal Velazquez DO Attending Provider [phone] Reva Wesley Primary Care Provider [phone] Allergies Allergy Classification Reported Allergen(s) Allergy Type Date of Onset Reaction(s) Facility (1 source) No Known Medication Allergies; Translations: [No Known Medication Allergies] Propensity to adverse reactions (disorder) [facility] Repository Medications Current Medications Medication [...] omeprazole 20 mg delayed release oral capsule (11 sources) Proton Pump Inhibitor Start: 09-03-2024 take 1 capsule by mouth once daily Start: 11-21-2023 Omeprazole Mag nesium (PRILOSEC OTC) [...] 05/22/2024 Active simvastatin 20 mg oral tablet (20 sources) HMG-CoA Reductase Inhibitor Start: 09-03-2024 Start: 06-28-2023 simvastatin (Z OCOR) 20 mg [...] Anxiety disorders (6 sources) Anxiety 06-28-2023 Chronic Blindness and vision defects (2 sources) Diplopia; Translations: [Diplopia] 09-03-2024 Episodic Cataract (20 sources) Senile combined form cataract [...] of colon 11-15-2023 Episodic Other eye disorders (9 sources) Fourth nerve palsy; 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, left eye] Onset: 5 04-02-2024 Episodic Other eye disorders (2 sources) Abducens nerve palsy; Translations: [Sixth [abducent] nerve palsy, unspecified eye] 09-03-2024 Episodic Other gastrointestinal disorders (1 source) Abnormal [...] EVALon 025 ANES POSTPROC EVAL HNO ID: [id number] Author: DAVID ALLISON MD Service: Anesthesiology Author Type: Anesthesiologist Type: Anesthesia Postprocedure Evaluation Filed: 05/22/2024 14:10 Note Text: POST ANESTHESIA EVALUATION NOTE : 1945 Procedure Summary Date: 05/22/24 Room / Location: [address] Anesthesia Start: 1131 Anesthesia Stop: 1159 [...] May 22, 2024 TIME: 2:09 PM CSN: [id number] Normal [facility] ANES PRE-OPon 05-22-2024 ANES PRE-OP HNO ID: [id number] Author: DAVID ALLISON MD Service: Anesthesiology Author Type: Anesthesiologist Type: Anesthesia Preprocedure Evaluation Filed: 05/22/2024 10:59 Note Text: ANESTHESIOLOGY DAY OF SURGERY NOTE : 1945 Procedure Information Date/Time: 05/22/24 1050 Procedures: PHACOEMULSIFICATION CATARACT IMPLANT INTRAOCULAR LENS W/O ENDOSCOPIC CYCLOPHOTOCOAGULATION (Left: Eye) OPHTHALMIC BIOMETRY BY PARTIAL COHERENCE INTERFEROMETRY W/INTRAOCULAR LENS POWER CALCULATION (Left: Eye) Location: [place] [address] / [facility] Surgeons: Desiree Rooney MD Estimated body mass [...] and consent discussed: yes. Patient / Responsible Republican agrees to proceed: yes Patient / Surrogate [...] May 22, 2024 TIME: 10:58 AM CSN: [id number] Normal [facility] OPERATIVE NOon 05-22-2024 OPERATIVE NO HNO ID: [id number] Author: DESIREE ROONEY MD Service: Ophthalmology Author Type: Physician Type: Operative Report Filed: 07/10/2024 08:07 Note Text: OPERATIVE/PROCEDURE REPORT LOG ID: [id number] Surgery/Procedure Date: 05/22/2024 Incision/Procedure Start Time: 11:46 AM Incision Close/Procedure End Time: 11:53 AM Surgeon(s)/Proceduralist(s) and Wireless Telegrapher(s): Surgeons and Role: * Desiree Rooney MD - Primary Wireless Telegrapher: None. Any nurse listed as assisting or [...] presence of the Nurse Coordinator and the technician telecommunication systems and a secondary full lens verification as part of the Time Out, with patient identity, laterality, and lens choice confirmed against the source document by myself, the Mat Worker Nurse, and the technician telecommunication systems. Topical lidocaine gel 2% was placed in [...] lidocaine on a 27-guage cannula. Using the Talyst phacoemulsification unit with the VisionGate curved tip, the anterior chamber was entered [...] the entire procedure. Comanage with Dr. Gray; [facility] POD #1. SIGNATURE: Desiree Rooney MD PATIENT NAME: Abigail Washington DATE: May 22, 2024 TIME: 11:54 AM PAGER/CONTACT #: Normal [facility] ANES POSTPROC EVALon 025 ANES POSTPROC EVAL HNO ID: [id number] Author: MARCIANO ANGEL II, DO Service: Anesthesiology Author Type: Anesthesiologist Type: Anesthesia Postprocedure Evaluation Filed: 05/01/2024 12:59 Note Text: POST ANESTHESIA EVALUATION NOTE : 1945 Procedure Summary Date: 05/01/24 Room / Location: [address] Anesthesia Start: 1127 Anesthesia Stop: 1144 Procedures: PHACOEMULSIFICATION CATARACT IMPLANT INTRAOCULAR LENS W/O ENDOSCOPIC CYCLOPHOTOCOAGULATION (Right: Eye) OPHTHALMIC BIOMETRY BY PARTIAL COHERENCE INTERFEROMETRY W/INTRAOCULAR LENS POWER CALCULATION (Right: Eye) Diagnosis: Combined forms of age-related cataract of right eye (Combined forms of age-related cataract of right eye [H25.811]) Surgeons: Desiere Rooney MD Responsible Provider: Marciano Angel II, [...] May 01, 2024 TIME: 12:59 PM CSN: [id number] Normal [facility] ANES PRE-OPon 05-01-2024 ANES PRE-OP HNO ID: [id number] Author: MARCIANO ANGEL II, DO Service: Anesthesiology Author Type: Anesthesiologist Type: Anesthesia Preprocedure Evaluation Filed: 05/01/2024 10:46 Note Text: ANESTHESIOLOGY DAY OF SURGERY NOTE : 1945 Procedure Information Date/Time: 05/01/24 1100 Procedures: PHACOEMULSIFICATION CATARACT IMPLANT INTRAOCULAR LENS W/O ENDOSCOPIC CYCLOPHOTOCOAGULATION (Right: Eye) OPHTHALMIC BIOMETRY BY PARTIAL COHERENCE INTERFEROMETRY W/INTRAOCULAR LENS POWER CALCULATION (Right: Eye) Location: [place] [address] / [facility] Surgeons: Desiree Rooney MD Estimated body mass [...] and consent discussed: yes. Patient / Responsible Republican agrees to proceed: yes Patient / Surrogate [...] May 01, 2024 TIME: 10:40 AM CSN: [id number] Normal [facility] OPERATIVE NOon 05-01-2024 OPERATIVE NO HNO ID: [id number] Author: DESIREE ROONEY MD Service: Ophthalmology Author Type: Physician Type: Operative Report Filed: 05/01/2024 11:43 Note Text: OPERATIVE/PROCEDURE REPORT LOG ID: [id number] Surgery/Procedure Date: 05/01/2024 Incision/Procedure Start Time: 11:35 AM Incision Close/Procedure End Time: 11:41 AM Surgeon(s)/Proceduralist(s) and Wireless Telegrapher(s): Surgeons and Role: * Desiree Rooney MD - Primary Wireless Telegrapher: None. Any nurse listed as assisting or [...] surgery, correct implant and all allergies. [facility] Lens verification Policy was meticulously followed as previously approved with both an initial lens verification by myself in the presence of the Nurse Coordinator and the technician telecommunication systems and a secondary full lens verification as part of the Time Out, with patient identity, laterality, and lens choice confirmed against the source document by myself, the Mat Worker Nurse, and the technician telecommunication systems. Topical lidocaine gel 2% was placed in [...] Using the Suleiman phacoemulsification unit with the Kelman curved tip, the anterior chamber was entered [...] Implant Name Type Inv. Item Serial No. Vending Machine Collector Lot No. LRB No. Used Action Model No. [id number] [employer] - [id number] Intraocular Lens [id number].190 [employer] [id number] [employer] Right 1 Implanted [id number] Drains: None. Complications: None. I performed the entire procedure. Comanage with Dr. Gray; [facility] POD #1. SIGNATURE: Desiree Rooney MD PATIENT NAME: Abigail Washington DATE: May 01, 2024 TIME: 11:43 AM PAGER/CONTACT #: Normal [facility] ASCAN ONLY - DIAGNOSTIC OU ( BOTH EYES)on 04-26-2024 [facility] Radiology Study observation (narrative) [facility] HISTORY PHYSICALon HISTORY PHYSICAL HNO ID: [id number] Author: TYLER BELTRAN APRN.CNP Service: ? Author [...] have a large neck STOP-Bang Score: 2 [id number] Score: Age: >=75 Sex: male CHF history: No Hypertension history: No Stroke/TIA/thromboembolism history: No Vascular disease history: No Diabetes history: No [id number] Score: 2 ARISCAT Score: Age: 51-80 Preoperative [...] fevers. Neuro: No history of TIA's, stroke, TAPE EDITOR tumor, impaired sensorium, hemiplegia, paraplegia or quadraplegia. [...] of CA (more content not included)... Normal [facility] IOL BIOMETRY W/ IOL CALC OU (BOTH EYES)on 04-26-2024 [facility] Radiology Study observation (narrative) [facility] Ambulatory Visit Summaryon 1 04-08-2023 Ambulatory Visit [...] CASE When: Only if needed Where: [address] [place] [address]- Medications What How Much When Instructions Unchanged [...] choosing us for your care. [facility] General Surgery Office/Clini c Noteon 02-06-2024 [...] Follow-up With When Contact Information ELAINE FRANCISCO, Jaciel Obando, CASE Only if needed [address] [place] [address]- Additional Instructions: Problem List/Past Medical [...] virus vaccine, inactivated 11/23/2022 Recorded SARS-CoV-2 (COVID-19) mRNAMUL.ORD![id number] 12/14/2021 Recorded SARS-CoV-2 (COVID-19) mRNA BNT-162b2 vax 06/29/2021 Recorded SARS-CoV-2 (COVID-19) mRNA-1273 vaccine 01/06/2021 Recorded SARS-CoV-2 (COVID-19) mRNA-1273 vaccine 06/04/2020 Recorded SARS-CoV-2 (COVID-19) mRNA-1273 vaccine 05/07/2020 Recorded Normal [facility] Comment on above: Result Comment: Elec tronically Signed By: ELAINE FRANCISCO, Jaciel Obando\.br\Date and Time Signed: 02/06/24 09:17 EST Ambulatory Visit Summaryon 1 03-25-2023 Ambulatory Visit Summary Ambulatory Visit Summary JACQUI WASHINGTONSTEWART Yap :1945 Visit Date:01/24/2024 Ambulatory Visit Instructions Your [...] AM EST With: Jaciel HENRY MD Where: [facility] Surgery [address], [address], [address] Medications What How Much When Instructions Unchanged [...] for choosing us for your care. Normal [facility] General Surgery Office/Clini c Noteon 01-24-2024 General Surgery Office/Clinic Note General Surgery Office/Clinic Note Chief Complaint post operative follow up HPI Staff 7 day post operative follow up post robotic assisted umbilical hernia repair. Reports minimal discomfort. Taking Hydrocodone BID and Ibuprofen 600mg BID. Denies bleeding or drainage. Pepe moving well. Wearing abdominal binder as directed. [...] virus vaccine, inactivated 11/23/2022 Recorded SARS-CoV-2 (COVID-19) mRNAMUL.ORD![id number] 12/14/2021 Recorded SARS-CoV-2 (COVID-19) mRNA BNT-162b2 vax 06/29/2021 Recorded SARS-CoV-2 (COVID-19) mRNA-1273 vaccine 01/06/2021 Recorded SARS-CoV-2 (COVID-19) mRNA-1273 vaccine 06/04/2020 Recorded SARS-CoV-2 (COVID-19) mRNA-1273 vaccine 05/07/2020 Recorded Normal [facility] Comment on above: Result Comment: Elec tronically Signed By: ELAINE FRANCISCO, Jaciel Hall\Date and Time Signed: 01/24/24 14:51 EST Pathology study report docum entOrdered By: Humberto Perkins on 01-18-2024 Pathology study [facility] Other Phone: Leonides 01-17-2024 L -------- -------- Specimen: [id number] Received: 01/17/24 Status: BRENT Valenzuela Num: [id number] Spec Type: Surgical Subm Dr: Jaciel Henry MD FACS Tissues: A Hernia Sac (HERNIA SAC) Procedures: BENI Gross/Micro L2 -------- Age/ Patient Sex Location Account Attending Physician -------- Abigail Washington 78/M LABELL [id number] Jaciel Henry MD FACS -------- SPEC NUM: [id number] RECD: 01/17/24 STATUS: BRENT VALENZUELA NUM: [id number] DAMARI: 01/17/[address] [facility] [address]: Jaciel Henry MD FACS ENTERED: 01/17/[address]: Gonzalez Lazaro SPEC TYPE: Surgical DEPT: [facility] ENTERED BY: [id number] RECV BY: [id number] ORDERED: BENI Gross/Micro L2 ORDERED: BENI Gross/Micro L2 Pathological Diagnosis Soft tissue, ventral [...] to pink, glistening and uniform cut surfaces. Brim Cutter sections are submitted in a single cassette. (1, , [id number]) JG -------- Specimen: [id number] Received: 01/17/24 Status: BRENT Nilesh Num: [id number] Spec Type: Surgical Subm Dr: Jaciel Henry MD FACS Tissues: A Hernia Sac (HERNIA SAC) Procedures: Obdulio BAZAN/[place] -------- Patient: Abigail Washington [id number] (Continued) -------- Specimen: [id number] Received: 01/17/24 (Continued) Signed (signature on file) Humberto Perkins MD 01/18/24 1801 -------- Specimen: [id number] Received: 01/17/24 Status: BERNT Mckeonlesly Num: [id number] Spec Type: Surgical Subm Dr: Jaciel Henry MD FACS Tissues: A Hernia Sac (HERNIA SAC) Procedures: Obdulio BAZAN/Micky L2 -------- Patient: Abigail Washington [id number] (Continued) -------- Specimen: [id number] Received: 01/17/24 (Continued) Microscopic Description Microscopic examinations are performed supporting the above interpretation CPT Codes 59166 -------- -------- Specimen: [id number] Received: 01/17/24 Status: BRENT Valenzuela Num: [id number] Spec Type: Surgical Subm Dr: Jaciel Henry MD FACS Tissues: A Hernia Sac (HERNIA SAC) Procedures: Obdulio BAZAN/Micky L2 -------- Patient: Abigail Washington [id number] (Continued) -------- Signed (signature on file) Humberto Perkins MD 01/18/241800 Normal [facility] Ambulatory Visit Summaryon 03-11-2023 Ambulatory [...] for choosing us for your care. Cam [facility] Ambulatory Visit Summaryon 0 11-21-2023 Ambulatory Visit [...] you for choosing us for your care. [facility] Ambulatory Visit Summaryon 0 08-29-2023 Ambulatory Visit [...] FRANCISCO, Renate Morales Where: [facility] General Surgery Office/Clini c Noteon 08-29-2023 [...] virus vaccine, inactivated 11/23/2022 Recorded SARS-CoV-2 (COVID-19) mRNAMUL.ORD![id number] 12/14/2021 Recorded SARS-CoV-2 (COVID-19) mRNA BNT-162b2 vax 06/29/2021 Recorded SARS-CoV-2 (COVID-19) mRNA-1273 vaccine 01/06/2021 Recorded SARS-CoV-2 (COVID-19) mRNA-1273 vaccine 06/04/2020 Recorded SARS-CoV-2 (COVID-19) mRNA-1273 vaccine 05/07/2020 Recorded Normal [facility] Comment on above: Result Comment: Elec tronically Signed By: ELAINE FRANCISCO, Jaciel Hall\Date and Time Signed: 08/29/23 16:38 EDT Reminderson 08-29-2023 Reminders - From: Hortensia Rivera LPN To: GSN - Clinical; Sent: 08/29/2023 15:20:02 EDT Show up: 07/08/2028 07:00:00 EDT Subject: colonoscopy recall Due Date/Time: 08/08/2028 07:00:00 EDT Reminder/Recall Patient due for surveillance colonoscopy 08/08/2028 due to history of polyp/family history of colon cancer. Normal [facility] Pathology Noteon 08-20-2023 Pathology Note [id number]#1.00TIFF Normal [facility] Outside Colonoscopyon 2023 Outside Colonoscopy [id number]#1.00TIFF Cam [facility] Leonides 08-09-2023 L Specimen: [id number] eceived: 08/10/23 Status: BRENT Valenzuela Num: [id number] Spec Type: Surgical Subm Dr: Jaciel Henry MD FACS Tissues: A Colon Biopsy (SIGMOID POLYP) Procedures: HE/2, Gross/Micro L4 Age/ Patient Sex Location Account Attending Physician Abigail Washington 77/M LABELL [id number] Jaciel Henry MD FACS SPEC NUM: [id number] RECD: 08/10/23 STATUS: BRENT VALENZUELA NUM: [id number] DAMARI: 08/09/[address]: Jaciel Henry MD FACS ENTERED: 08/10/[address] [facility] [address]: Gonzalez Lazaro SPEC TYPE: Surgical [...] cm, entirely submitted in A1. CPT Codes 14278 -------- -------- Specimen: [id number] Received: 08/10/23-1256 Status: BRENT Valenzuela Num: [id number] Spec Type: Surgical Subm Dr: Jaciel Henry MD FACS Tissues: A Colon Biopsy (SIGMOID POLYP) Procedures: HE/2, Gross/Micro L4 -------- Patient: Abigail Washington [id number] (Continued) -------- Signed (signature on file) Humberto Perkins MD 08/14/23 1556 Normal [facility] Insurance Correspondenceon 0 07-26-2023 Insurance Correspondence [id number]#1.00TIFF Normal [facility] ASPIRATE CULTUREon 4 Bacteria identified Aer cx Nom (Asp) GRAM STAIN 10 to 24 WHITE BLOOD CELLS/LPF 0 SQUAMOUS EPITHELIAL CELLS/LPF NO ORGANISMS SEEN CULTURE RESULTS NO GROWTH 3 DAYS Normal [facility] Comment on above: Performed By: #### 5 97-5 #### [facility] ([id number]) [address], [address] [place] [address] COMPREHENSIVE METABOLIC PANE Leonides 07-20-2023 Albumin [Mass/Vol] 3.5 g/dL Normal 3.2-5.3 [facility] Comment on above: Performed By: #### C MP #### [facility] ([id number]) [address] [place] [address] ALP [Catalytic activity/Vol] 298 U/L High 39-130 [facility] Comment on above: Performed By: #### C MP #### [facility] ([id number]) [address] [place] [address] 94300 ALT [Catalytic activity/Vol] 32 U/L Normal 0-40 [facility] Comment on above: Performed By: #### C MP #### [facility] ([id number]) [address] [place] [address]93 Anion gap [Moles/Vol] 10 mmol/L Normal 5-15 [facility] Comment on above: Performed By: #### C MP #### [facility] ([id number]) [address] [place] [address] 85161 AST [Catalytic activity/Vol] 36 U/L Normal 0-41 [facility] Comment on above: Performed By: #### C MP #### [facility] ([id number]) [address] [place] [address] 13801 Bilirubin [Mass/Vol] 1.0 mg/dL Normal 0.3-1.2 [facility] Comment on above: Performed By: #### C MP #### [facility] ([id number]) [address] [place] [address] 58553 Calcium [Mass/Vol] 8.8 mg/dL Normal 8.5-10.5 [facility] Comment on above: Performed By: #### C MP #### [facility] ([id number]) [address] [place] [address]1017 Chloride [Moles/Vol] 101 mmol/L Normal 98-109 [facility] Comment on above: Performed By: #### C MP #### [facility] ([id number]) [address] [place] [address] 16612 CO2 [Moles/Vol] 25 mmol/L Normal 22-32 [facility] Comment on above: Performed By: #### C MP #### [facility] ([id number]) [address] [place] [address] 24048 Creatinine [Mass/Vol] 0.89 mg/dL Normal 0.70-1.20 [facility] Comment on above: Result Comment: METH OD TRACEABLE TO IDMS STANDARD Performed By: #### C MP #### [facility] ([id number]) [address] [place] [address] 09599 GFR/1.73 sq M.predicted among non-blacks MDRD (S/P/Bld) [Vol rate/Area] 89 mL/min/{1.73_m2} Normal >59 [facility] Comment on above: Result Comment: Reported eGFR is based on the CKD-EPI 2021 equation that does not use a race coefficient. Performed By: #### C MP #### [facility] ([id number]) [address] [place] [address]235 Glucose [Mass/Vol] 104 mg/dL High 65-99 [facility] Comment on above: Performed By: #### C MP #### [facility] ([id number]) [address] [place] [address] 71842 Potassium [Moles/Vol] 4.0 mmol/L Normal 3.5-5.0 [facility] Comment on above: Performed By: #### C MP #### [facility] ([id number]) [address] [place] [address] 70578 Protein [Mass/Vol] 7.8 g/dL Normal 6.0-8.0 [facility] Comment on above: Performed By: #### C MP #### [facility] ([id number]) [address] [facility] [address], [place] [address] Sodium [Moles/Vol] 136 mmol/L Normal 134-146 [facility] Comment on above: Performed By: #### C MP #### [facility] ([id number]) [address] [facility] [address], [place] [address] Urea nitrogen [Mass/Vol] 17 mg/dL Normal 5-27 [facility] Comment on above: Performed By: #### C MP #### [facility] ([id number]) [address] [place] [address] Cytologyon 07-20-2023 Cytology Normal [facility] Comment on above: Result Comment: [facility] [address] [place] [address] Cytology Consultation Patient Name:ABIGAIL WASHINGTON:1945 (Age: 77)Gender:MTaken:07/20/2023eported:07/21/2023 11:52Physician(s):Zack Gibson M.D. ([phone])Copy To:Jaciel Echavarria D.O. Rec. #:[id number]: #[id number] Final Cytologic Diagnosis Bile leak fluid: No malignant cells identified. [facility]/07/21/2023 Interpretation performed at [facility], [address] [place] [address], License number: [id number].Electronically Signed Out By Jerrod Batista M.D. Clinical History None given. Gross Description Received was 1,600 mL of brown fluid unfixed labeled as Padmini, bile leak . CytoLyt added in lab. Specimen placed in formalin at 14:00 and had a total fixation time of 12 hours. Source of Specimen Bile leak fluid Cell block for Non-center medical specialist (M), Level 2 H&E, Non INCINERATOR OPERATOR ThinPrep Fee Code(s): 1; 67066, 60370 IR BILIARY DRAIN INTERNAL/EX T COMPon 07-20-2023 [...] in its inferior portion with a 10 Urdu pigtail drainage catheter, using trocar technique. A [...] Gibson MD on 07/20/2023 12:51 PM Normal [facility] NM HEPATOBILIARY SYS IMAGING WO [...] Wan MD on 07/20/2023 7:35 AM Normal [facility] PLATELET COUNT AND MPVon Platelet mean volume (Bld) [Entitic vol] 7.2 fL Normal 7-12 [facility] Comment on above: Performed By: #### P LTCT, PINR #### [facility] ([id number]) [address] [place] [address]93 Platelets (Bld) [#/Vol] 247 10*3/uL Normal 150-450 [facility] Comment on above: Performed By: #### P LTCT, PINR #### [facility] ([id number]) [address] [place] [address] PROTIME AND INRon 07-20-2023 INR Coag (PPP) [Relative time] 1.1 {INR} Normal 0.8-1.1 [facility] Comment on above: Performed By: #### P LTCT, PINR #### [facility] ([id number]) [address] [place] [address] 87844 PT Coag (PPP) [Time] 12.8 s Normal 9.8-13.2 [facility] Comment on above: Result Comment: NEW REFERENCE RANGE Performed By: #### P LTCT, PINR #### [facility] ([id number]) [address] [place] [address] 36848 Consent for Procedure/Surger yon 07-12-2023 Consent for Procedure/Surgery [id number]#1.00TIFF Normal [facility] Ambulatory Visit Summaryon 0 07-11-2023 Ambulatory Visit Summary ABIGAIL WASHINGTON Marely :1945 Visit Date:07/11/2023 Ambulatory Visit Instructions Your [...] for choosing us for your care. Normal [facility] Facesheeton 07-11-2023 Facesheet [id number]#1.00TIFF [facility] Physician Referralon 024 Physician Referral [id number]#1.00TIFF [facility] Multiple labson 05-27-2023 [facility] Surgical Pathologyon 024 [facility] Leonides 05-24-2023 L Specimen: [id number] R eceived: 05/25/23 Status: BRENT Valenzuela Num: [id number] Spec Type: Surgical Subm Dr: Jaciel Echavarria DO Tissues: A Gallbladder (GALLBLADDER) Procedures: HE, Gross/Micro L3 Age/ Patient Sex Location Account Attending Physician Abigail Washington/M LABELL [id number] Jaciel Echavarria DO SPEC NUM: [id number] RECD: 05/25/23 STATUS: BRENT VALENZUELA NUM: [id number] DAMARI: 05/24/[address]: Jaciel Echavarria DO ENTERED: 05/25/[address]: Gonzalez Lazaro SPEC TYPE: Surgical DEPT: [facility] CASE ORDERED: BENI Gross/Micro L3 ORDERED: BENI, Gross/Micro L3 Pathological [...] red- brown to green-angel and denuded. . Brim Cutter sections are submitted in one cassette labeled A1. CPT Codes 69791 -------- -------- Specimen: [id number] Received: 05/25/23 Status: BRENT Valenzuela Num: [id number] Spec Type: Surgical Subm Dr: Jaciel Echavarria,DO Tissues: A Gallbladder (GALLBLADDER) Procedures: BENI Gross/Micro L3 -------- Patient: Abigail Washington [id number] (Continued) -------- Signed (signature on file) Nikita Dunne MD 05/26/23 1220 Normal [facility] [place] STRESS/REST MULTIon 06-06 [place] STRESS/REST MULTI Patient: ABIGAIL WASHINGTON. Exam Date: 06/06/2022 : 1945 Gender:M Ordering : REVA SHANNON [facility] Admission #: [id number] Family : Order #: [id number] CLICK HERE TO VIEW EXAM RADIOLOGY REPORT [...] M.D. on 06/07/2022 at 07:05 Normal [facility] INSULINon 05-19-2022 Insulin 11.6 uIU/mL Normal 2.6-24.9 [facility] Comment on above: Performed By: #### I NSULIN #### [facility] [address] [place] [address] Dr. Karely Perkins CBC AUTO DIFFon 05-18-2022 BASO # 0.0 103/ul Normal 0.0-0.1 [facility] Comment on above: Performed By: #### C BC #### [facility] [address] [place] [address] Dr. Karely Perkins Basophils/100 WBC (Bld) 0.6 % Normal 0.2-2.0 [facility] Comment on above: Performed By: #### C BC #### [facility] [address] [place] [address] Dr. Karely Perkins EO # 0.2 103/ul Normal 0.0-0.7 [facility] Comment on above: Performed By: #### C BC #### [facility] [address] [place] [address] Dr. Karely Perkins Eosinophils/100 WBC (Bld) 3.9 % Normal 0.9-7.0 [facility] Comment on above: Performed By: #### C BC #### [facility] [address] [place] [address] Dr. Karely Perkins Erythrocyte distribution width (RBC) [Ratio] 12.8 % Normal 11.0-15.0 [facility] Comment on above: Performed By: #### C BC #### [facility] [address] [place] [address] Dr. Karely Perkins Hematocrit (Bld) [Volume fraction] 48.4 % Normal 42.0-54.0 [facility] Comment on above: Performed By: #### C BC #### [facility] [address] [place] [address] Dr. Karely Perkins Hemoglobin (Bld) [Mass/Vol] 15.8 g/dL Normal 14.0-18.0 [facility] Comment on above: Performed By: #### C BC #### [facility] [address] [place] [address] Dr. Karely Perkins IG # 0.01 10e3/ul Normal 0.00-0.03 [facility] Comment on above: Performed By: #### C BC #### [facility] [address] [place] [address] Dr. Karely Perkins IG % 0.2 % Normal 0.0-0.5 [facility] Comment on above: Performed By: #### C BC #### [facility] [address] [place] [address] Dr. Karely Perkins LYMPH # 1.4 103/ul Normal 1.2-3.8 [facility] Comment on above: Performed By: #### C BC #### [facility] [address] [place] [address] Dr. Karely Perkins Lymphocytes/100 WBC (Bld) 28.5 % Normal 20.5-60.0 [facility] Comment on above: Performed By: #### C BC #### [facility] [address] [place] [address] Dr. Karely Perkins MANUAL DIFF REQ NO Normal [facility] Comment on above: Performed By: #### C BC #### [facility] [address] [place] [address] Dr. Karely Perkins MCH (RBC) [Entitic mass] 28.7 pg Normal 25.9-34.0 [facility] Comment on above: Performed By: #### C BC #### [facility] [address] [place] [address] Dr. Karely Perkins MCHC (RBC) [Mass/Vol] 32.6 g/dL Normal 29.9-35.2 [facility] Comment on above: Performed By: #### C BC #### [facility] [address] [place] [address] Dr. Karely Perkins MCV (RBC) [Entitic vol] 87.8 fL Normal 80.0-94.0 [facility] Comment on above: Performed By: #### C BC #### [facility] [address] [place] [address] Dr. Karely Perkins MONO # 0.5 103/ul Normal 0.3-0.8 [facility] Comment on above: Performed By: #### C BC #### [facility] [address] [place] [address] Dr. Karely Perkins Monocytes/100 WBC (Bld) 10.3 % Normal 1.7-12.0 [facility] Comment on above: Performed By: #### C BC #### [facility] [address] [place] [address] Dr. Karely Perkins NEUT # 2.7 103/ul Normal 1.4-6.5 [facility] Comment on above: Performed By: #### C BC #### [facility] [address] [place] [address] Dr. Karely Perkins Neutrophils/100 WBC (Bld) 56.5 % Normal 43.0-75.0 [facility] Comment on above: Performed By: #### C BC #### [facility] [address] [place] [address] Dr. Karely Perkins Platelet mean volume (Bld) [Entitic vol] 9.3 fL Critically low 9.5-13.5 [facility] Comment on above: Performed By: #### C BC #### [facility] [address] [place] [address] Dr. Karely Perkins PLT 184 103/ul Normal 150-450 [facility] Comment on above: Performed By: #### C BC #### [facility] [address] [place] [address] Dr. Karely Perkins RBC 5.51 106/ul Normal 4.70-6.10 [facility] Comment on above: Performed By: #### C BC #### [facility] [address] [place] [address] Dr. Karely Perkins WBC 4.9 103/ul Normal 4.0-11.0 [facility] Comment on above: Performed By: #### C BC #### [facility] [address] [address] [address] Karely Perkins GLYCOHEMOGLOBIN A1Con 2022 ADA RECOMMENDATION SEE BELOW Normal [facility] Comment on above: Result Comment: ADA RECOMMENDED LIMIT 4.0 - 6.0 ADA THERAPEUTIC TARGET < 7.0 ACTION SUGGESTED > 7.0 Performed By: #### A 1C #### [facility] [address] [address] [address] Karely Perkins Glucose [Mass/Vol] 120 mg/dL Normal [facility] Comment on above: Performed By: #### A 1C #### [facility] [address] [place] [address] Dr. Karely Perkins HbA1c (Bld) [Mass fraction] 5.8 % Normal 4.5-6.2 [facility] Comment on above: Performed By: #### A 1C #### [facility] [address] [place] [address] Dr. Karely Perkins LIPID PROFILEon 05-18-2022 CHOL-HDL RATIO NORM SEE BELOW Normal [facility] Comment on above: Result Comment: 3.3 - 4.4 LOW RISK 4.4 - 7.1 AVERAGE RISK 7.1 - 11.0 MODERATE RISK >11.0 HIGH RISK Performed By: #### C MP, LIPID #### [facility] [address] [place] [address] Dr. Karely Perkins Cholesterol [Mass/Vol] 169 mg/dL Normal <=200 [facility] Comment on above: Performed By: #### C MP, LIPID #### [facility] [address] [place] [address] Dr. Karely Perkins Cholesterol in HDL [Mass/Vol] 74 mg/dL Critically high 40-60 [facility] Comment on above: Performed By: #### C MP, LIPID #### [facility] [address] [place] [address] Dr. Karely Perkins Cholesterol in LDL [Mass/Vol] 80.6 mg/dL Normal [facility] Comment on above: Performed By: #### C MP, LIPID #### [facility] [address] [address] [address] Karely Perkins Cholesterol.total/C holesterol in HDL [Mass ratio] 2.3 {ratio} Normal [facility] Comment on above: Performed By: #### C MP, LIPID #### [facility] [address] [address] [address] Karely Perkins HDL NORMAL > or = 60 mg/dl - LO W CARDIOVASCULAR RISK <40 mg/dl - HIGH CARDIOVASCULAR RISK Normal [facility] Comment on above: Performed By: #### C MP, LIPID #### [facility] [address] [place] [address] Dr. Karely Perkins LDL CALC NORMAL SEE BELOW Normal [facility] Comment on above: Result Comment: <100 mg/dl OPTIMAL 100 - 129 mg/dl NEAR OR ABOVE OPTIMAL 130 - 159 mg/dl BORDERLINE HIGH 160 - 189 mg/dl HIGH >190 mg/dl VERY HIGH Performed By: #### C MP, LIPID #### [facility] [address] [place] [address] Dr. Karely Perkins Triglyceride [Mass/Vol] 72 mg/dL Normal <=150 [facility] Comment on above: Performed By: #### C MP, LIPID #### [facility] [address] [place] [address] Dr. Karely Perkins VLDL CALC 14.4 mg/dL Normal [facility] Comment on above: Performed By: #### C MP, LIPID #### [facility] [address] [place] [address] Dr. Karely Perkins PROF 14(COMP METB)on 023 Albumin [Mass/Vol] 3.7 g/dL Normal 3.4-5.0 [facility] Comment on above: Performed By: #### C MP, LIPID #### [facility] [address] [place] [address] Dr. Karely Perkins Albumin/Globulin [Mass ratio] 1.0 {ratio} Normal [facility] Comment on above: Performed By: #### C MP, LIPID #### [facility] [address] [place] [address] Dr. Karely Perkins ALP [Catalytic activity/Vol] 117 U/L Critically high 46-116 [facility] Comment on above: Performed By: #### C MP, LIPID #### [facility] [address] [place] [address] Dr. Karely Perkins ALT [Catalytic activity/Vol] 24 U/L Normal 16-63 [facility] Comment on above: Performed By: #### C MP, LIPID #### [facility] [address] [place] [address] Dr. Karely Perkins Anion gap [Moles/Vol] 9.4 mmol/L Normal [facility] Comment on above: Performed By: #### C MP, LIPID #### [facility] [address] [place] [address] Dr. Karely Perkins AST [Catalytic activity/Vol] 34 U/L Normal 15-37 [facility] Comment on above: Performed By: #### C MP, LIPID #### [facility] [address] [place] [address] Dr. Karely Perkins Bilirubin [Mass/Vol] 0.7 mg/dL Normal 0.2-1.0 [facility] Comment on above: Performed By: #### C MP, LIPID #### [facility] [address] [place] [address] Dr. Karely Perkins Calcium [Mass/Vol] 9.0 mg/dL Normal 8.5-10.1 [facility] Comment on above: Performed By: #### C MP, LIPID #### [facility] [address] [place] [address] Dr. Karely Perkins Chloride [Moles/Vol] 108 mmol/L Critically high 98-107 [facility] Comment on above: Performed By: #### C MP, LIPID #### [facility] [address] [place] [address] Dr. Karely Perkins CO2 [Moles/Vol] 30.7 mmol/L Normal 21.0-32.0 [facility] Comment on above: Performed By: #### C MP, LIPID #### [facility] [address] [place] [address] Dr. Karely Perkins Creatinine [Mass/Vol] 0.90 mg/dL Normal 0.70-1.30 [facility] Comment on above: Performed By: #### C MP, LIPID #### [facility] [address] [place] [address] Dr. Karely Perkins EGFR-AF ARGENTINE >60 Normal >=60 [facility] Comment on above: Performed By: #### C MP, LIPID #### [facility] [address] [place] [address] Dr. Karely Perkins EGFR-NON AF ARGENTINE >60 Normal >=60 [facility] Comment on above: Performed By: #### C MP, LIPID #### [facility] [address] [place] [address] Dr. Karely Perkins Globulin (S) [Mass/Vol] 3.6 g/dL Normal [facility] Comment on above: Performed By: #### C MP, LIPID #### [facility] [address] [place] [address] Dr. Karely Perkins Glucose [Mass/Vol] 109 mg/dL Critically high 74-106 [facility] Comment on above: Performed By: #### C MP, LIPID #### [facility] [address] [place] [address] Dr. Karely Perkins Potassium [Moles/Vol] 4.1 mmol/L Normal 3.5-5.1 [facility] Comment on above: Performed By: #### C MP, LIPID #### [facility] [address] [place] [address] Dr. Karely Perkins Protein [Mass/Vol] 7.3 g/dL Normal 6.4-8.2 [facility] Comment on above: Performed By: #### C MP, LIPID #### [facility] [address] [place] [address] Dr. Karely Perkins Sodium [Moles/Vol] 144 mmol/L Normal 136-145 [facility] Comment on above: Performed By: #### C MP, LIPID #### [facility] [address] [place] [address] Dr. Karely Perkins Urea nitrogen [Mass/Vol] 20.0 mg/dL Critically high 7.0-18.0 [facility] Comment on above: Performed By: #### C MP, LIPID #### [facility] [address] [place], [place] [address] Dr. Karely Perkins Urea nitrogen/Creatinine [Mass ratio] 22.2 mg/mg Normal [facility] Comment on above: Performed By: #### C MP, LIPID #### [facility] [address] [place], [place] [address] Dr. Karely Perkins US SCROTUMon 11-18-2021 US [...] by: ZULEMA HENDRICKSON Date: 2021-11-18 12:10 Normal [facility] Vital Signs Date Time Vital Sign Value Performing Clinician Faci lity 09-30-2024 10:57-0400 Body height 170.18 cm Reva METZGER Work Phone: [facility] 09-30-2024 10:57-0400 Body mass index (BMI) [Ratio] 24.3 kg/m2 Reva METZGER Work Phone: [facility] 09-30-2024 10:57-0400 Body weight 70.3 kg Reva METZGER Work Phone: [facility] 09-30-2024 10:57-0400 Diastolic blood pressure 88 mm[Hg] Reva Shiva CIGARETTE PACKING MACHINE OPERATOR-C Work Phone: [facility] 09-30-2024 10:57-0400 Heart rate 56 /min Reva Shiva [employer]ARET[employer] P[employer]ING MACHINE OPERATOR-C Work Phone: [facility] 09-30-2024 10:57-0400 SaO2% (BldA) [Mass fraction] 99 % Reva Shiva [employer]ARET[employer] PACKING MACHINE OPERATOR-C Work Phone: [facility] 09-30-2024 10:57-0400 Systolic blood pressure 136 mm[Hg] Reva Shiva [employer]ARET[employer] PACKING MACHINE OPERATOR-C Work Phone: [facility] 09-03-2024 12:37-0400 Body height 170.18 cm Reva Shiva [employer]IGARETTE PACKING MACHINE OPERATOR-C Work Phone: [facility] 09-03-2024 12:37-0400 Body mass index (BMI) [Ratio] 24.2 kg/m2 Reva Shiva [employer]ARET[employer] PACKING MACHINE OPERATOR-C Work Phone: [facility] 09-03-2024 12:37-0400 Body weight 70.08 kg Reva Shiva [employer]IGARET[employer] PACKING MACHINE OPERATOR-C Work Phone: [facility] 09-03-2024 12:37-0400 Diastolic blood pressure 81 mm[Hg] Reva Shiva CIGARET[employer] PACKING MACHINE OPERATOR-C Work Phone: [facility] 09-03-2024 12:37-0400 Heart rate 62 /min Reva Shiva [employer]ARET[employer] P[employer]ING MACHINE OPERATOR-C Work Phone: [facility] 09-03-2024 12:37-0400 SaO2% (BldA) [Mass fraction] 99 % Reva Shiva [employer]ARET[employer] P[employer]ING MACHINE OPERATOR-C Work Phone: [facility] 09-03-2024 12:37-0400 Systolic blood pressure 148 mm[Hg] Reva Shiva [employer]ARET[employer] P[employer]ING MACHINE OPERATOR-C Work Phone: [facility] 04-26-2024 10:05-0500 Body height 170.2 cm [facility] 1 Work Phone: [facility] 04-26-2024 10:05-0500 Body mass index (BMI) [Ratio] 25.55 kg/m2 Pacc 1 Work Phone: [facility] 04-26-2024 10:05-0500 Body temperature 97.9 [degF] Pacc 1 Work Phone: [facility] 04-26-2024 10:05-0500 Body weight 74 kg Pacc 1 Work Phone: [facility] 04-26-2024 10:05-0500 Diastolic blood pressure 88 mm[Hg] Pacc 1 Work Phone: [facility] 04-26-2024 10:05-0500 Heart rate 86 /min Pacc 1 Work Phone: [facility] 04-26-2024 10:05-0500 Respiratory rate 16 /min Pacc 1 Work Phone: [facility] 04-26-2024 10:05-0500 SaO2% (BldA) [Mass fraction] 99 % Pacc 1 Work Phone: [facility] 04-26-2024 10:05-0500 Systolic blood pressure 144 mm[Hg] Pacc 1 Work Phone: [facility] 01-10-2024 13:49-0500 Blood Pressure Location Jaciel HENRY [facility] 01-10-2024 13:49-0500 Diastolic blood pressure 94 mm[Hg] Jaciel HENRY [facility] 01-10-2024 13:49-0500 Heart rate 72 /min Jaciel NILL [facility] 01-10-2024 13:49-0500 Respiratory rate 16 /min Jaciel LLOYDL [facility] 01-10-2024 13:49-0500 Systolic blood pressure 146 mm[Hg] Jaciel NILL [facility] [place] 11-21-2023 13:38-0400 Blood Pressure Location Jaciel NILL [facility] [place] [facility] [place] 11-21-2023 13:38-0400 Diastolic blood pressure 84 mm[Hg] Jaciel NILL [facility] [place] [facility] [place] 11-21-2023 13:38-0400 Heart rate 72 /min Jaciel NILL [facility] [place] [facility] [place] 11-21-2023 13:38-0400 Respiratory rate 16 /min Jaciel NILL [facility] [place] [facility] [place] 11-21-2023 13:38-0400 Systolic blood pressure 136 mm[Hg] Jaciel NILL [facility] [place] 07-11-2023 13:24-0400 Blood Pressure Location Jaciel NILL [facility] [place] 07-11-2023 13:24-0400 Diastolic blood pressure 80 mm[Hg] Jaciel NILL [facility] [place] 07-11-2023 13:24-0400 Heart rate 72 /min Jaciel NILL [facility] [place] 07-11-2023 13:24-0400 Respiratory rate 16 /min Jaciel NILL [facility] [place] [facility] [place] 07-11-2023 13:24-0400 Systolic blood pressure 126 mm[Hg] Jaciel NILL [facility] [place] 06-07-2023 11:36-0400 Body height 170.2 cm Lakeisha Jung APRN-PLATFORM INSPECTOR Work Phone: [facility] 06-07-2023 11:36-0400 Body mass index (BMI) [Ratio] 25.31 kg/m2 Lakeisha Jung DIRECTOR DATABASE-PLATFORM INSPECTOR Work Phone: [employer] 06-07-2023 11:36-0400 Body weight 73.3 kg Lakeisha Jung DIRECTOR DATABASE-PLATFORM INSPECTOR Work Phone: [facility] 06-07-2023 11:36-0400 Diastolic blood pressure 95 mm[Hg] Lakeisha Jung DIRECTOR DATABASE-PLATFORM INSPECTOR Work Phone: [facility] 06-07-2023 11:36-0400 Heart rate 81 /min Lakeisha Jung DIRECTOR DATABASE-PLATFORM INSPECTOR Work Phone: [facility] 06-07-2023 11:36-0400 Systolic blood pressure 178 mm[Hg] Lakeisha Jung DIRECTOR DATABASE-PLATFORM INSPECTOR Work Phone: [facility] Encounters Encounter Date Encounter Type Care Provider Facility Start: 09-30-2024 End: 09-30-2024 ambulatory Reva Shannon C[employer]ARET[employer] P[employer] MACHINE OPERATOR-C Work Phone: [facility] Work Phone: Start: 09-30-2024 End: 09-30-2024 Patient encounter procedure Rupal Velazquez DO [facility] Work Phone: Start: 09-03-2024 End: 09-03-2024 ambulatory Reva Shannon C[employer]ARET[employer] PACKING MACHINE OPERATOR-C Work Phone: [facility] Work Phone: Start: 09-03-2024 End: 09-03-2024 Patient encounter procedure Rupal Velazquez [facility] Work Phone: Start: 05-23-2024 End: 05-23-2024 ambulatory REVA SHANNON Facility:[facility] Start: 05-23-2024 End: 05-23-2024 Patient encounter procedure Desiree Rooney MD Work Phone: Ophthalmology Comment on above: Pseudophakia of both eyes (Primary Dx); Fourth nerve palsy of left eye Start: 05-22-2024 End: 05-22-2024 ambulatory DESIREE ROONEY Facility:[facility] Start: 05-22-2024 End: 05-22-2024 Patient encounter procedure Nanette Villagomez Arina OD Work Phone: Ophthalmology Comment on above: Pseudophakia, right eye (Primary Dx); Combined 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; Fourth nerve palsy of left eye Start: 05-01-2024 End: 05-01-2024 ambulatory DESIREE ROONEY Facility:[facility] Start: 04-26-2024 End: 04-26-2024 Patient encounter procedure Eye [facility] Work Phone: Ophthalmology Comment on above: Combined forms of ag e-related cataract of right eye; Combined 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 Start: 04-26-2024 End: 04-26-2024 Admission to establishment [facility] Work Phone: Pre Anesthesia Start: 04-26-2024 End: 04-26-2024 ambulatory DESIREE ROONEY Facility:[facility] Start: 04-26-2024 End: 04-26-2024 Anesthesia consultation [facility] Work Phone: Pre Anesthesia Comment on above: Pre-op evaluation (P rimary Dx); Hyperlipidemia, unspecified hyperlipidemia type; Gastroesophageal reflux disease without esophagitis Start: 04-26-2024 Encounter for other preprocedural examination DESIREE ROONEY [facility] Start: 04-26-2024 End: 04-26-2024 Preprocedural examination done [facility] Work Phone: [facility] Work Phone: Start: 04-10-2024 End: 04-10-2024 ambulatory DAVY GRAY Facility:[facility] Start: 04-02-2024 End: 04-02-2024 ambulatory DESIREE ROONEY Facility:[facility] Start: 04-02-2024 End: 04-02-2024 Patient encounter procedure Desiree Rooney MD Work Phone: Ophthalmology Comment on above: Combined forms of ag e-related cataract of right eye (Primary Dx); Combined 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; Anatomical narrow angle, bilateral; Fourth nerve palsy of left eye Start: 02-06-2024 End: 02-06-2024 ambulatory Jaciel HENRY Facility:[facility] Start: 02-06-2024 End: 02-06-2024 Patient encounter procedure Jaciel HENRY [facility] Start: 01-24-2024 End: 01-24-2024 ambulatory Jaciel HENRY Facility:[facility] Start: 01-24-2024 End: 01-24-2024 Patient encounter procedure Jaciel HENRY [facility] Start: 01-17-2024 End: 01-17-2024 ambulatory Jaciel Henry Facility:[facility] Start: 01-17-2024 End: 01-17-2024 Departed Referred Jaciel Henry MD Work Phone: [facility] Start: 01-17-2024 End: 01-17-2024 ambulatory Jaciel HENRY Facility:[id number] Start: 01-10-2024 End: 01-10-2024 ambulatory Jaciel HENRY Facility:[facility] Start: 01-10-2024 End: 01-10-2024 Patient encounter procedure Jaciel HENRY [facility] Start: 01-03-2024 Non-patient / Non-visit Armin Henry MD Work Phone: [facility] Work Phone: Start: 11-21-2023 End: 11-21-2023 ambulatory Jaciel HENRY Facility:[facility] Start: 11-21-2023 End: 11-21-2023 Patient encounter procedure Jaciel HENRY [facility] Start: 10-18-2023 ambulatory REVA S SHIVA Facilit y:[facility] [place] Start: 08-29-2023 End: 08-29-2023 ambulatory Jaciel HENRY Facility:[facility] Start: 08-29-2023 End: 08-29-2023 Patient encounter procedure Jaciel HENRY [facility] [place] [facility] [place] Start: 08-09-2023 End: 08-09-2023 ambulatory Jaciel Henry [facility] Work Phone: Start: 08-09-2023 End: 08-09-2023 Departed Referred DO Jaciel Sonali Work Phone: [facility] [facility] Start: 08-09-2023 End: 08-09-2023 ambulatory Jaciel HENRY Facility:CD:[id number] Start: 07-24-2023 End: 07-25-2023 Telephone encounter Christie Alcala [facility] General Surgery Start: 07-20-2023 End: 07-20-2023 ambulatory REVA Sridevi [facility] Start: 07-20-2023 End: 07-20-2023 ambulatory JACIEL Yap CARLENESridevi [facility] Start: 07-19-2023 End: 07-19-2023 Orders Only Jaciel Hernandezcarlenesridevi DO Work Phone: [facility] Comment on above: Abnormal CT of the a bdomen (Primary Dx); Status post laparoscopic cholecystectomy Start: 07-18-2023 End: 07-18-2023 Orders Only Jaciel Echavarria DO Work Phone: [facility] Comment on above: Abnormal CT of the a bdomen (Primary Dx); Status post laparoscopic cholecystectomy Abnormal CT of the a bdomen (Primary Dx) Start: 07-17-2023 End: 07-17-2023 Telephone encounter Ronda Plunkett [facility] General Surgery Start: 07-11-2023 End: 07-11-2023 ambulatory REVA S SHIVA Facility:[facility] Start: 07-11-2023 End: 07-11-2023 Patient encounter procedure Jaciel HENRY [facility] [place] Start: 06-19-2023 ambulatory REVA SHANNON Facility: [facility] Start: 06-16-2023 ambulatory REVA SHANNON Facility: [place] Start: 06-07-2023 End: 06-07-2023 ambulatory [facility] Start: 06-07-2023 End: 06-07-2023 Patient encounter procedure Lakeisha Edis Jud DIRECTOR DATABASE-PLATFORM INSPECTOR Work Phone: [facility] Comment on above: Status post laparosc opic cholecystectomy (Primary Dx); Status post umbilical hernia repair, follow-up exam Start: 05-31-2023 Orders Only Not In System Ref Prov [facility] General Surgery Start: 05-25-2023 End: 05-25-2023 Departed Referred DO Jaciel Echavarria Work Phone: [facility] Start: 05-25-2023 End: 05-25-2023 ambulatory Jaciel Echavarria [facility] Work Phone: Start: 06-06-2022 End: 06-07-2022 ambulatory REVA SHANNON Facility:[facility] Start: 05-18-2022 End: 05-19-2022 ambulatory REVA SHANNON Facility:[facility] Start: 11-18-2021 End: 11-19-2021 ambulatory REVA SHANNON Facility:[facility] Start: 05-07-2020 End: 05-07-2020 Patient encounter procedure Wendy Remigio Work Phone: [facility] Work Phone: Procedures Date Procedure Procedure Detail Performing Clinician Start: 04-26-2024 IOL BIOMETRY W/ IOL CALC OU (BOTH EYES) Desiree Rooney MD Work Phone: Start: 04-26-2024 ASCAN ONLY - DIAGNOSTIC OU (BOTH EYES) Desiree Rooney MD Work Phone: Start: 01-17-2024 Repair of umbilical hernia Jaciel LLOYDJeffry Start: 08-09-2023 Colonoscopy Jaciel LLOYDJeffry Start: 05-27-2023 MULTIPLE LABS Not In System Ref Prov Start: 05-25-2023 Level i surg pathology gross examination only Not In System Ref Prov Start: 05-18-2022 PSA screening REVA SHANNON Comment on above: Performed By: #### [facility]ASC #### [facility] [address] [place] [address] Dr. Karely Perkins Start: 05-07-2020 Imm. administration COVID19 Moderna dose 1 Wendy Hark Work Phone: Start: 05-07-2020 SARS-CoV-2 vaccine, 0.5ml Moderna Tintri Work Phone: Start: 09-23-2015 Colonoscopy Jaciel LLOYDJeffry Start: 09-23-2015 Esophagogastroduodenoscopy Jaciel LLOYDJeffry Excision of basal cell carcinoma Jaciel ELAINE Comment on above: back Excision of squamous cell carcinoma Jaciel LLOYDJeffry Comment on above: left shoulder History of cholecystectomy Statu s post laparoscopic cholecystectomy Jaciel Echavarria DO Work Phone: History of cholecystectomy Statu s post laparoscopic cholecystectomy Jaciel Echavarria DO Work Phone: History of cholecystectomy Statu s post laparoscopic cholecystectomy Lakeisha Jung DIRECTOR DATABASE-PLATFORM INSPECTOR Work Phone: Repair of umbilical hernia Jesusita LLOYDJeffry Tonsillectomy Jaciel HENRY Plan of Treatment Date Care Activity Detail Author Start: 07-19-2026 Diabetes Screening Diabetes Screening [facility] Start: 04-02-2025 End: 09-24-2025 ASCAN ONLY - DIAGNOSTIC OU (BOTH EYES) ASCAN ONLY - DIAGNOSTIC OU (BOTH EYES) [facility] Imaging Routine Combined forms of age-related cataract of right eye Combined 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 Expected: 04/02/2025, Expires: 09/24/2025 [facility] Comment on above: Expected: 04/02/2025, Expires: Start: 04-02-2025 End: 09-24-2025 IOL BIOMETRY W/ IOL CALC OU (BOTH EYES) IOL BIOMETRY W/ IOL CALC OU (BOTH EYES) [facility] Imaging Routine Combined forms of age-related cataract of right eye Combined 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 Expected: 04/02/2025, Expires: 09/24/2025 [facility] Comment on above: Expected: 04/02/2025, Expires: Start: 07-19-2024 Adult BMI Screening Adult BMI Screening [facility] Start: 07-19-2024 Tobacco Screening Tobacco Screening [facility] Start: 06-06-2024 Adult BMI Screening Adult BMI Screening [facility] Start: 06-06-2024 Tobacco Screening Tobacco Screening [facility] Start: 05-23-2024 End: 05-23-2024 Patient encounter procedure 05/23/2024 8:15 AM EDT Office Visit [facility] [address] [place] [address] Desiree Rooney MD [address] [place] [address] Pseudophakia (Primary Dx); Combined 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 Ophthalmology Comment on above: Pseudophakia (Primary Dx); Combined 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 Start: 05-22-2024 End: 05-22-2024 Oph bmtry prtl coher intrfrmtry io lens pwr geovanna OPHTHALMIC BIOMETRY BY PARTIAL COHERENCE INTERFEROMETRY W/INTRAOCULAR LENS POWER CALCULATION Combined 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 05/22/2024 11:21 AM EDT FREDDIE RUELAS Start: 05-22-2024 End: 05-22-2024 Xcapsl ctrc rmvl [...] prosth w/o ecp [facility] Start: 05-06-2024 Covid-19 Vaccine () Covid-19 Vaccine () [facility] Start: 05-01-2024 End: 05-01-2024 Admission to same [...] EST Office Visit [facility] [address] [place] [address] CATARACT SURGERY RIGHT THEN LEFT TAO Ophthalmology Comment on above: CATARACT SURGERY RIGHT THEN LEFT TAO Start: 04-26-2024 End: 04-26-2024 Admission to same day surgery center 04/26/2024 10:20 AM EST PAT Pre Anesthesia [address] [place] [address] 1, Pacc [place] [address] [facility] [place] [address] CATARACT SURGERY RIGHT THEN LEFT TAO Pre Anesthesia Comment on above: CATARACT SURGERY RIGHT THEN LEFT TAO Start: 04-10-2024 End: 04-10-2024 Patient encounter procedure 04/10/2024 3:45 PM EST Office [place] [id number] CATARACT SURGERY RIGHT THEN LEFT TAO [facility] Comment on above: CATARACT SURGERY RIGHT THEN LEFT TAO Start: 03-06-2024 Advance Directive Discussion Advance Directive Discussion [facility] Start: 11-05-2023 Influenza vaccination Influenza Vaccine [facility] Start: 07-20-2023 Subsequent hospital visit by physician 07/20/2023 6:30 AM EDT Hospital Encounter [facility] Nuclear MedIcine [address] [place] [id number] Jaciel Echavarria, [address] [place] [id number] [facility] - Nuclear MedIcine Start: 07-19-2023 End: 07-18-2024 NM Liver and Biliary ducts and Gallbladder Views NM hepatobiliary system imaging without pharmacologic agent Imaging STAT Abnormal CT of the abdomen Status post laparoscopic cholecystectomy Expected: 07/19/2023, Expires: 07/18/2024 [employer] Work Phone: Comment on above: Expected: 07/19/2023, Expires: 5 Start: 07-18-2023 End: 07-17-2024 NM Liver and Biliary ducts and Gallbladder Views NM hepatobiliary system imaging without pharmacologic agent Imaging Routine Abnormal CT of the abdomen Expected: 07/18/2023, Expires: 07/17/2024 [employer] Work Phone: Comment on above: Expected: 07/18/2023, Expires: 5 Start: 07-18-2023 End: 07-17-2024 RF Guidance for percutaneous replacement of drainage catheter of Biliary ducts and Gallbladder IR biliary drainage catheter internal-external Imaging Routine Abnormal CT of the abdomen Status post laparoscopic cholecystectomy Expected: 07/18/2023, Expires: 07/17/2024 [employer] Work Phone: Comment on above: Expected: 07/18/2023, Expires: Start: 06-04-2020 2nd Dose- COVID Vaccine [facility] Work Phone: Start: 08-23-2011 Fall Risk Screening Fall Risk Screening [facility] Start: 1996 Administration of varicella zoster vaccine Zoster (Shingles) Vaccine (1 of 2) [facility] Start: 1996 Shingrix Vaccine (1 of 2) Shingrix Vaccine (1 of 2) [facility] Start: 08-23-1991 Diabetes Screening Diabetes Screening [facility] Start: 1965 DTaP,Tdap and Td Vaccines (1 - Tdap) DTaP,Tdap and Td Vaccines (1 - Tdap) [facility] Start: 1965 Urine microalbumin profile DTaP,Tdap,Td Vaccine (1 - Tdap) [facility] Start: 1964 Adult BMI Follow Up Plan Adult BMI Follow Up Plan [facility] Start: 1964 Anxiety Screening Anxiety Screening [facility] Start: 1964 Depression Screening Depression Screening [facility] Start: 1964 Hepatitis C screening Hepatitis C Screening [facility] Start: 1958 Depression Screening Depression Screening [facility] Start: 1946 Medicare Annual Wellness Visit Medicare Annual Wellness Visit [facility] End: 07-17-2024 Comprehensive metabolic 2000 panel - Serum or Plasma Comprehensive metabolic panel Lab Routine Abnormal CT of the abdomen 1 Occurrences starting 07/18/2023 until 07/17/2024 [facility] Comment on above: 1 Occurrences starting 07/18/2023 until 07/17/2024 End: 09-11-2025 CORNEAL TOPOGRAPHY PENTACAM OU (BOTH EYES) CORNEAL TOPOGRAPHY PENTACAM OU (BOTH EYES) [facility] Imaging Routine Combined 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 Combined forms of age-related cataract of right eye 1 Occurrences starting 03/20/2024 until 09/11/2025 [facility] Comment on above: 1 Occurrences starting 03/20/2024 until 09/11/2025 MR Unspecified body region F [facility] MRA Head vessels WO contrast [facility] End: 09-11-2025 OCT MACULA CIRRUS OU (BOTH EYES) OCT MACULA CIRRUS OU (BOTH EYES) [facility] Imaging Routine Combined 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 Combined forms of age-related cataract of right eye 1 Occurrences starting 03/20/2024 until 09/11/2025 [facility] Work Phone: Comment on above: 1 Occurrences starting 03/20/2024 until 09/11/2025 Immunizations Immunization Date Immunization Notes Care Provider Fa prasanna 11-23-2022 influenza virus vaccine, unspecified formulation Lakeisha Jung DIRECTOR DATABASE-PLATFORM INSPECTOR Work Phone: [facility] 12-14-2021 SARS-CoV-2 (COVID-19 ) [id number] Jaciel ELAINE [facility] 06-29-2021 SARS-CoV-2 (COVID-19 ) mRNA BNT-162b2 vax Jaciel ELAINE [facility] 01-06-2021 SARS-CoV-2 (COVID-19 ) mRNA-1273 vaccine Jaciel LLOYDL [facility] 06-04-2020 SARS-CoV-2 (COVID-19 ) mRNA-1273 vaccine Jaciel HENRY [facility] 05-07-2020 2nd Dose MODERNA COVID-19 Vaccine; Translations: [Moderna COVID-19 Vaccine] Luiz Jimenez [facility] Comment on above: Note: Patient tolera keely well. No signs or symptoms of adverse reactions. Patient waited a minimum of 15 minutes. Payers Date Payer Category Payer Self-pay 2022 Medicare [id number] 2022 Medicare (Managed Care) HEVER العراقي [id number] 2011 Unknown 1 - Medicare [facility] [id number] 2.16.840.1.516066.3.140.1. 18036.5.10.6.3 1959 Medicare [id number] 1959 Medicare [id number] 1959 Unknown [id number] 2.16.840.1.823802.3.140.1. 10503.5.10.6.3 1946 Unknown [id number] 2.16.840.1.240099.3.579.2. 593 1946 Unknown [id number] 2.16.840.1.478250.3.579.2. 593 1946 Unknown [id number] 2.16.840.1.708126.3.579.2. 593 1946 Unknown [id number] 2.16.840.1.849423.3.579.2. 1286 1946 Unknown [id number] 2.16.840.1.092137.3.579.2. 1286 1946 Unknown [id number] 2.16.840.1.908980.3.579.2. 1286 1946 Unknown [id number] 2.16.840.1.403457.3.579.2. 1286 1946 Unknown [id number] 2.16.840.1.959654.3.579.2. 1285 1946 Unknown [id number] 2.16.840.1.395648.3.579.2. 1285 1946 Unknown [id number] 2.16.840.1.153662.3.579.2. 128 1946 Unknown [id number] 2.16.840.1.291033.3.579.2. 72 1946 Unknown [id number] 2.16.840.1.519680.3.579.2. 1946 Unknown [id number] 2.16.840.1.404591.3.579.2. 72 1946 Unknown [id number] 2.16.840.1.897270.3.579.2. 72 1946 Unknown [id number] 2.16.840.1.428144.3.579.2. 72 1946 Unknown [id number] 2.16.840.1.120677.3.579.2. 1946 Unknown [id number] 2.16.840.1.011203.3.579.2. 72 1946 Unknown [id number] 2.16.840.1.972117.3.579.2. 1946 Unknown [id number] 2.16.840.1.718800.3.579.2. 72 Medicare Medicare Outpatient [id number] Unknown [facility] Claims [id number] Unknown [id number] 2.16840.1.661741.3.579.2. 531 Unknown [id number] 2.16.840.1.070331.3.579.2. 531 Unknown [id number] 2.16.840.1.538581.3.579.2. 531 Social History Date Type Detail Facility Tobacco smoking status Unknown if ever sm oked [facility] Start: 1945 Sex Assigned At Male Naheed [facility] Start: 07-11-2023 End: 04-02-2024 Tobacco smoking [facility] [place] Tobacco smoking status [facility] Start: 04-02-2024 End: 04-26-2024 Sex Assigned At Male [facility] Start: 01-18-2024 Sex Male (finding) [facility] Start: 03-06-1958 End: 03-06-1983 History of tobacco use Current smoker [facility] Start: 03-06-1958 End: 03-06-1983 History of tobacco use Cigarette Smoker [facility] Start: 04-02-2024 End: 04-26-2024 Cigarettes smoked current (pack per day) - Reported 0.5 [facility] Start: 06-07-2023 End: 04-02-2024 Tobacco use and exposure Smokeless tobacco non-user [facility] Start: 04-02-2024 End: 05-23-2024 Alcoholic beverage intake Current drinker of alcohol (finding) [facility] Start: 1945 Sex assigned at Not on file P [facility] Start: 04-26-2024 Alcohol Comment weekly [facility] Start: 09-03-2024 Tobacco smoking stat [facility] Never smoked tobacco (finding) [facility] Medical Equipment Procedure Code Equipment Code Equipment Origin al Text Equipment Identifier Dates [id number] Clarisa on [facility] - [id number] Start: 05-01-2024 [id number] Clarisa on [facility] - [id number] Start: 05-22-2024 Functional Status Date Assessment Result Facility 02-06-2024 Functional Status N/A [facility] 01-24-2024 Functional Status N/A [facility] 01-10-2024 Functional Status N/A [facility] [place] 11-21-2023 Functional Status N/A [facility] [place] 07-11-2023 Functional Status N/A [facility] [place] Clinical Notes 06-07-2023 to 09-03-2024 Note Date & Type Note Facility 09-03-2024 Chief complaint+R oumou for visit Narrative REFERRAL DR DAVY GRAY/ 4TH NERVE PALSY September 03, 2024 12:33pm Follow up after MRI September 30, 2024 10:3 8am Reason for Visit Admit Date Diplopia September 03, 2024 12:33 pm Lateral rectus palsy September 03, 2024 12:3 3pm 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 Author Type: Physician Type: Progress Notes Filed: 05/23/2024 09:00 Note Text: ASSESSMENT/PLAN: 1. Pseudophakia - ICD9: V43.1, ICD10: Z96.1 (primary diagnosis) - 1 day PO S/P PC IOL Left eye (05/22/2024) Aim: [place] doing well; He is happy with the improvement in his vision. - S/P PC IOL Right eye (05/01/2024) Aim: [place] The patient was instructed to.... - Use [...] with all of its relevant components. Desiree Rooney, [facility]03-20-2025 History of Present illness Narrative* Desiree Rooney MD - 05/23/2024 8:36 AM EDT ASSESSMENT/PLAN: 1. Pseudophakia - ICD9: V43.1, ICD10: Z96.1 (primary diagnosis) - 1 day PO S/P PC IOL Left eye (05/22/2024) Aim: [place] doing well; He is happy with the improvement in his vision. - S/P PC IOL Right eye (05/01/2024) Aim: [place] The patient was instructed to.... - Use [...] needed, starting 3 days after surgery to alleviateany dry eye symptoms. July trial OTC readers until getting updated glasses. [...] accurately reflects the service I personally performed andthe decisions made by me. I have confirmed [...] and plan as stated above and agree withall of its relevant components. Desiree Rooney MD documented [facility]-2025 NoteHNO ID: [id number] Author: NANETTE SANTA, CORNELIO Service: ? Author Type: THREAD WEAVER Type: Progress Notes Filed: 05/22/2024 10:22 Note [...] p Cataract surgery May 22, 2024 10:20 [facility]03-19-2025 History of Present illness Narrative* Nanette Santa, OD - 05/22/2024 10:20 AM EDT ASSESSMENT/PLAN: 1. Pseudophakia, right eye - ICD9: [...] 22, 2024 10:20 AM documented in this encounterRegency Hospital [facility]02-21-2025 NoteDate of Procedure 04/26/2024. Road Freight Brake Coupler Information Performance Consultant: ARNEL. Notes Measurements only - see Procedure Record under Scanned Documents for signed results.[id number] NoteDate of Procedure 04/26/2024. Road Freight Brake Coupler Information Performance Consultant: [id number] NoteHNO ID: [id number] Author: KELLIE ALCARAZ COA Service: ? Author Type: Road Freight Brake Coupler Type: Progress Notes Filed: 04/26/2024 11:17 Note Text: Confirmed with patient PLANO Both eyes Drop instructions given Co-manage with Roshan Gray, paper signed AUBRIE Chen April 26[facility]02-[facility] History of Present illness Narrative* Kellie Alcaraz COA - 04/26/2024 11:04 AM EST Confirmed with patient PLANO Both eyes Drop instructions given Co-manage with Roshan Gray, paper signed AUBRIE Chen April 26, 2024 documented in this encounterRegency Hospital [facility]02-21-2025 History and physical note * Tyler Beltran APRN.WENDY - 04/26/2024 10:20 AM EST Images from the original note were not included. [facility] HISTORY AND PHYSICAL EXAMINATION SERVICE DATE: 04/26/2024 SERVICE TIME: 10:02 AM PRIMARY CARE PHYSICIAN: Reva Shannon CNP, PLATFORM INSPECTOR REASON FOR VISIT: Abigail [place] is a [...] have a large neck STOP-Bang Score: 2 [id number] Score: Age: >=75 Sex: male CHF history: No Hypertension history: No Stroke/TIA/thromboembolism history: No Vascular disease history: No Diabetes history: No [id number] Score: 2 ARISCAT Score: Age: 51-80 Preoperative [...] Pitts present: yes Lip Bite Test: II Microretrognathia/Micronagthia/Recessed Chin: No DENTAL Dentures, upper: complete. Dentures, [...] fevers. Neuro: No history of TIA's, stroke, TAPE EDITOR tumor, impaired sensorium, hemiplegia, paraplegia or quadraplegia. [...] or clotting disorder. Pt is not taking anti- coagulation or platelet medications. No history of hematological [...] Disease) Covid Immunization Dates Upcoming Covid-19 Vaccine () Next due on 05/06/2024 11/07/2023 Imm Admin: COVID-19 vaccine, age 12+ yr (MODERNA) 11/30/2022 Imm Admin: COVID-19 vaccine, age 12+ yr ([employer] COMIRNATY) 12/14/2021 Imm Admin: COVID-19 vaccine, age 12+ yr, bivalent (MODERNA) 06/29/2021 Imm Admin: COVID-19 original vaccine, age 12+ yr, monovalent ([employer] - PURPLE TOP) 01/06/2021 Imm Admin: COVID-19 [...] Abigail [place] DATE: 04/26/2024 TIME: 12:50 PM [facility]02-21-2025 History and physical note* Tyler Beltran APRN.CNP - 04/26/2024 10:20 AM EST Images from the original note [...] have a large neck STOP-Bang Score: 2 [id number] Score: Age: >=75 Sex: male CHF history: No Hypertension history: No Stroke/TIA/thromboembolism history: No Vascular disease history: No Diabetes history: No [id number] Score: 2 ARISCAT Score: Age: 51-80 Preoperative [...] Pitts present: yes Lip Bite Test: II Microretrognathia/Micronagthia/Recessed Chin: No DENTAL Dentures, upper: complete. Dentures, [...] fevers. Neuro: No history of TIA's, stroke, TAPE EDITOR tumor, impaired sensorium, hemiplegia, paraplegia or quadraplegia. [...] or clotting disorder. Pt is not taking anti- coagulation or platelet medications. No history of hematological [...] Disease) Covid Immunization Dates Upcoming Covid-19 Vaccine () Next due on 05/06/2024 11/07/2023 Imm Admin: COVID-19 vaccine, age 12+ yr (MODERNA) 11/30/2022 Imm Admin: COVID-19 vaccine, age 12+ yr ([employer] COMIRNATY) 12/14/2021 Imm Admin: COVID-19 vaccine, age 12+ yr, bivalent (MODERNA) 06/29/2021 Imm Admin: COVID-19 original vaccine, age 12+ yr, monovalent ([employer] - PURPLE TOP) 01/06/2021 Imm Admin: COVID-19 [...] 04/26/2024 TIME: 12:50 PM documented in this encounterRegency Hospital [facility]02-21-2025 Instructions* Patient Instructions* Tyler Beltran APRN.CNP - 04/26/2024 10:02 AM EST Images from the original note were not included. [facility] Pre[facility]est[facility] PATIENT PREOPERATIVE INSTRUCTIONS Desiree Rooney MD has scheduled you for your procedure at this surgery center: [facility]: [phone] --[address] [facility] [address]. Please read below carefully for your personalized [...] office. If you are currently using a lzol-trj-vnpg injectable or oral medication for diabetes or weight loss such as Dulaglutide (Trulicity), Exenatide (Byetta, Bydureon), Liraglutide (Victoza, Saxenda), Semaglutide (Ozempic, Wegovy, Rybelsus), or Tirzepatide (Mounjaro), the medicine should be stopped at least 7 days before surgery. These medicines can cause food to remain in your stomach for a very longtime and increase the risks from surgery and [...] Procedures: - YOU MUST HAVE A RESPONSIBLE SPRINKLER FITTER HELPER TAKE YOU HOME. A FARMWORKER VEGETABLE OR CYBER SECURITY ENGINEER CANNOT BE MADE A RESPONSIBLE SPRINKLER FITTER HELPER. - We recommend that a responsible person stays with you overnight to take care of you. - You cannot stay in a hotel alone after outpatient surgery. You will not be permitted to have yoursurgery, if you do not have someone to take care of you. If you already have an Advance Directive, please fax a copy to [phone] or email to for it to be added to your chart. If you do not have an Advance Directive, you can find the appropriate form and more information at [email or web address]. We recommend that youcomplete the Advance Directive form found on the website and bring it with you the day of your surgery. It can be witnessed and scanned into your chart that day. Tyler Beltran APRN.WENDY documented in this encounterRegency Hospital [facility]01-28-2025 NoteHNO ID: [id number] Author: DESIREE ROONEY MD Service: ? Author [...] kind referral! Allergies: see list - Aim: [place] OU. Patient understands the need for glasses [...] work and [place] [facility] [place] [facility]; offered cataract Surgery OD/OS soon. Copy [...] of its relevant components. Desiree Rooney MD 04/02/24[facility]01-28-2025 History of Present illness Narrative* Desiree Rooney MD - 04/02/2024 11:10 AM EST ASSESSMENT/PLAN: Patient educated with patient and his [...] 20/70 Left Eye High 20/70 Visual Function: Abigailstewart Washington states that the decline in vision from the cataract impedes his abilities as listed in the HPI, as well as other activities of daily living. Abigail Washington has confirmed that he is no longer able to function adequately on a day-to-day basisbecause of his current visual condition. Further, it [...] insertion of intraocular lens by Dr. Rooney OD/ OS. Patient wishes to proceed with surgery. All questions were answered. A-scan to be performed pre-operatively. Referred by Dr. Gray, Thank you for your kind referral! Allergies: see list - Aim: [place] OU. Patient understands the need for glasses [...] eye, discussed risk of loose zonules and possibleneed for posterior sulcus IOL OD. - Co-manage [...] work and now enjoys living in the [facility]; offered cataract Surgery OD/OS soon. Copy of today's visit note was sent to Dr. Gray. Return for PAT, ultrasound, Intraocular lens calculations, and surgery. Desiree Rooney MD The documentation for this note was completed by AUBRIE Agudelo acting as a scribe for, and inthe presence of, Dr. Desiree Rooney M.D. The documentation recorded by the scribe accurately reflects the service I personally performed andthe decisions made by me. I have confirmed [...] and plan as stated above and agree withall of its relevant components. Desiree Rooney MD 04/02/24 [facility] Hospital Discharge instructions Follow Up Care 01/24/2024 14:55:08 With:ELAINE FRANCISCO, CASE Bautista Address: [address] [place] [phone] When: only if needed [facility] General Surgery [place] [phone] NoteGeneral Surgery Office/Clinic Note Chief Complaint consultation for bilateral inguinal [...] biloma was present; area reportedly aspirated at [facility]; will obtain records; just noticed bulges recently, no pain orskin changes, no injury. no other abd operations; [...] swallowing difficulties, no hearing loss, no ear infection(s),no nose bleeds. Cardiovascular: normal blood pressure, no [...] changes, nontender, no evidence of inguinal hernias bilaterally;well healed right upper quadrant scar; nontender, diastasis [...] (T81.89XA: Other complications of procedures, not elsewhere classified,initial encounter) see # 1 Ordered: Basic Metabolic [...] (09/23/2015), Cholecystectomy, Excision o (more content not included)...[facility] CenterComment on above:Result Comment: Electronically Signed By: Jaciel HENRY MD\Date and Time Signed: 01/10/24 16:25 [id number] Evaluation + Plan note Diagnostic Tests Pending * Hepatic Function Panel 01/10/24 * Basic Metabolic Panel 01/10/24 * CBC w/ Auto Diff 01/10/24 [facility] Surgery [place] 09-17-2024 NoteGeneral Surgery Office/Clinic Note Chief Complaint consultation for hernia HPI [...] required percutaneous drainage, which was done in [place]; no pain or skin changes, no N/V [...] swallowing difficulties, no hearing loss, no ear infection(s),no nose bleeds. Cardiovascular: normal blood pressure, no [...] 2: Mother and Bro (more content not included)...[facility] CenterComment on above:Result Comment: Electronically Signed By: ELAINE FRANCISCO, Jaciel Keen.zuleyma\Date and Time Signed: 11/21/23 17:00 [id number] Miscellaneous Notes* Telephone Encounter - Christie Alcala CMA - 07/24/2023 3:00 PM EDT The patient called and asked me to [...] wants Dr Kowalski to know how awesome hedid do on his gallbladder surgery. * Telephone Encounter - Ronda Plunkett CMA - 07/24/2023 3:00 PM EDT ----- Message from Jaciel Echavarria DO sent [...] up with me p.r.n.. Thanks, Dr. Kowalski * Telephone Encounter - Ronda Plunkett CMA - 07/24/2023 3:00 PM EDT Spoke with patient regarding Dr. Echavarria's message. Patient verbally understood with no further questions. [facility] Telephone encounter Note* Telephone Encounter - Christie Alcala CMA - 07/24/2023 3:00 PM EDT The patient called and asked me to [...] wants Dr Kowalski to know how awesome hedid do on his gallbladder surgery. [facility] Twenty [id number] Telephone encounter Note* Telephone Encounter - Ronda Plunkett CMA - 07/24/2023 3:00 PM EDT ----- Message from Jaciel Echavarria DO sent [...] me p.r.n.. Thanks, Dr. Kowalski [facility]05-20-[facility] Telephone encounter Note* Telephone Encounter - Ronda Plunkett CMA - 07/24/2023 3:00 PM EDT Spoke with patient regarding Dr. Echavarria's message. Patient verbally understood with no further questions. [facility] Miscellaneous Notes* Telephone Encounter - Christie Alcala CMA - 07/24/2023 2:10 PM EDT Cora says that she called the patient to schedule HIDA but, he told her that he already had thatdone, at [facility]. I spoke to my co-worker & she reports that he decided to change where he wanted it done. Without letting us know. documented in this encounterC[facility]05-[facility] Telephone encounter Note* Telephone Encounter - Christie Alcala CMA - 07/24/2023 2:10 PM EDT Cora says that she called the patient to schedule HIDA but, he told her that he already had thatdone, at [facility]. I spoke to my co-worker & she reports that he decided to change where he wanted it done. Without letting us know. [facility] Miscellaneous Notes* Telephone Encounter - Ronda Plunkett CMA - 07/17/2023 3:25 PM EDT Received a call from patient stating Reva Shannon CNP ordered a CT for patient. Dr. Echavarria performed a robotic cholecystectomy at [facility] on 05/24/23. Was informed that the CT showed some fluid. Patient stated Reva Shannon CNP is going to forward patient's CT results. Once we receive them I will inform Dr. Echavarria. documented in this encounterC[facility]24 Telephone encounter Note* Telephone Encounter - Ronda Plunkett CMA - 07/17/2023 3:25 PM EDT Received a call from patient stating Reva Shannon CNP ordered a CT for patient. Dr. Echavarria performed a robotic cholecystectomy at [facility] on 05/24/23. Was informed that the CT showed some fluid. Patient stated Reva Shannon CNP is going to forward patient's CT results. Once we receive them I will inform Dr. Echavarria. [facility] NoteChief Complaint consultation for positive Cologuard HPI Staff [...] swallowing difficulties, no hearing loss, no ear infection(s),no nose bleeds. Cardiovascular: normal blood pressure, no [...] virus vaccine, inactivated 11/23/2022 Recorded SARS-CoV-2 (COVID-19) [id number] 12/14/2021 Recorded SARS-CoV-2 (COVID-19) mRNA BNT-162b2 vax 06/29/2021 Recorded SARS-CoV-2 (COVID-19) mRNA-1273 vaccine 01/06/2021 Recorded SARS-CoV-2 (COVID-19) mRNA-1273 vaccine 06/04/2020 Recorded SARS-CoV-2 (COVID-19) mRNA-1273 vaccine 05/07/2020 RecordedLouis [facility] Medical CenterComment on above:Result Comment: Electronically Signed By: ELAINE FRANCISCO, Jaciel Hall\Date and Time Signed: 07/11/23 13:45 [id number] History of Present illness Narrative* Lakeisha Jung, SHAYNE-PLATFORM INSPECTOR - 06/07/2023 11:30 AM EDT Images from the original note were not [...] office today. No strenuous activity for another 4weeks. Follow-up as needed. Status post laparoscopic cholecystectomy [Z90.49] [facility]ON SINGH [facility] [place] This note was created with the assistance of a speech recognition program. While intending to generate a timely document that accurately reflects the content of the visit, no guarantee can be provided that every grammatical or spelling mistake has been or will be identified or corrected. Thank you for your understanding. JEVON Singh 06/07/23 1150 documented in this encounterCleveland Clinic Mercy HospitalChief complaint+Reason for visit Narrative* Chief Complaint Admit Date REFERRAL DR DAVY GRAY/4TH NERVE PA MANUEL September 03, 2024 12:33pm [facility] Work Phone: Evaluation + Plan note No data available for this section [facility] Surgery [place] Evaluation + Plan note Future Appointments Appointment Date:10/18/2023 08:15:00 AM Scheduled Provider:Renate Brock MD Location:[facility] Appointment Type:URO New Patient [facility] Evaluation + Plan note Future Appointments Appointment Date:02/06/2024 08:40:00 AM Scheduled Provider:Jaciel HENRY MD Location:[facility] Appointment Type:GS Post Op 15 [facility] evaluation noteNo assessment information available [facility] Work Phone: evaluation note* Diagnosis Combined forms [...] of senile cataract documented in this encounter [facility]* Diagnosis Abnormal CT of the abdomen- Primary Nonspecific (abnormal) findings on radiological and other examination of abdominal area, including retroperitoneum Status post laparoscopic cholecystectomy Other postprocedural status documented in this encounter [facility]* Diagnosis Abnormal CT of the abdomen- Primary Nonspecific (abnormal) findings on radiological and other examination of abdominal area, including retroperitoneum documented in this encounter [facility]* Diagnosis Abnormal CT of the abdomen- Primary Nonspecific (abnormal) findings on radiological and other examination of abdominal area, including retroperitoneum Status post laparoscopic cholecystectomy Other postprocedural status documented in this encounter [facility]* Diagnosis Status post laparoscopic cholecystectomy- Primary Other postprocedural status Status post umbilical hernia repair, follow-up exam Follow-up examination, following other surgery documented in this encounter [facility]* Diagnosis Pre-op evaluation- Primary Preoperative examination, [...] Follows with PCP [facility]* Diagnosis Combined forms of age-related cataract [...] of senile cataract documented [facility] this encounter [facility]* Diagnosis Pre-op evaluation- Primary Preoperative examination, [...] of senile cataract [facility]* Diagnosis Pre-op evaluation- Primary Preoperative examination, unspecified Hyperlipidemia, unspecified hyperlipidemia type Gastroesophageal reflux disease without esophagitis Esophageal reflux Pseudophakia of both eyes- Primary Lens replaced by other means 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, fourth or trochlear nerve palsy documented in this encounter [facility] Discharge instructions No data available for this section [facility] Surgery [place] InstructionsNot on filedocumented in this encounter [facility]Not on filedocumented in this encounter [facility] SystemInstructionsNot on filedocumented in this encounter [facility] SystemInstructionsNot on filedocumented in this encounter [facility] SystemInstructionsNot on filedocumented in this encounter [facility] No data available for this section [facility] Reason for referral (narrative)No reason for referral information availableC[facility] Work Phone: Reason for Referral Specialty Diagnoses / Procedures Referred By Contmaximilian t Referred To Contact Radiology Diagnoses Abnormal CT of the abdomen Status post laparoscopic cholecystectomy Procedures IR biliary drainage catheter internal-external Jaciel Echavarria, DO [address] [place] [address] Referral ID Status Reason Start Date Expiration Date V isits Requested Visits Authorized [id number] Pending Review 07/18/2023 07/17/2024 1 1 Specialty Diagnoses / Procedures Referred By Contac t Referred To Contact Radiology Diagnoses Abnormal CT of the abdomen Procedures NM hepatobiliary system imaging without pharmacologic agent Jaciel Echavarria, DO [address] [place] [address] Referral ID Status Reason Start Date Expiration Date V isits Requested Visits Authorized [id number] Pending Review 07/18/2023 07/17/2024 5 5 Specialty Diagnoses / Procedures Referred By Contac t Referred To Contact Radiology Diagnoses Abnormal CT of the abdomen Status post laparoscopic cholecystectomy Procedures NM hepatobiliary system imaging without pharmacologic agent Jaciel Echavarria, DO [address] [place] [address] [address] [place] [address] Phone: [phone] Referral ID Status Reason Start Date Expiration Date V isits Requested Visits Authorized [id number] Authorized 07/19/2023 07/18/2024 5 5 Assessments Findings Encounter Date Encounter for Immunization 1st COVID Vaccine susan Flood PLATFORM INSPECTOR 05/07/2020 Instructions Instructions not supported for this [...] and content) DATE CREATED AUTHOR 06/11/2022 [facility] [place] [facility] DATE CREATED AUTHOR AUTHOR'S ORGANIZ ATION 07/22/2023 [facility] DATE CREATED AUTHOR AUTHOR'S ORGANIZ ATION 08/06/2023 [facility] DATE CREATED AUTHOR AUTHOR'S ORGANIZ ATION 01/19/2024 [facility] DATE CREATED AUTHOR AUTHOR'S ORGANIZ ATION 02/07/2024 [facility] DATE CREATED AUTHOR AUTHOR'S ORGANIZ ATION 07/12/2024 [facility] Care Teams (unrecognized sec tion and [...] Member Role Status Dates Jaciel Henry MD [facility] Attending Provider Active Start: January 17, 2024 End: January 17, 2024 Assistant Plant Control Operator Relationship Specialty Start Date End Date Reva Shannon DIRECTOR DATABASE-PLATFORM INSPECTOR [address] [facility], [place] [address] PCP - General Family Medicine 06/01/23 Assistant Plant Control Operator Relationship Specialty Start Date End Date Reva Shannon APRN-PLATFORM INSPECTOR [address] [facility], [place] [address] PCP - General Family Medicine 06/01/23 Assistant Plant Control Operator Relationship Specialty Start Date End Date Reva Shannon DIRECTOR DATABASE-PLATFORM INSPECTOR [address] [facility], [place] [address] PCP - General Family Medicine 06/01/23 Assistant Plant Control Operator Relationship Specialty Start Date End Date Reva Shannon DIRECTOR DATABASE-PLATFORM INSPECTOR [address] [facility], [place] [address] PCP - General Family Medicine 06/01/23 Assistant Plant Control Operator Relationship Specialty Start Date End Date Reva Shannon DIRECTOR DATABASE-PLATFORM INSPECTOR [address] [facility], [place] [address] PCP - General Family Medicine 06/01/23 Assistant Plant Control Operator Relationship Specialty Start Date End Date Reva Shannon DIRECTOR DATABASE-PLATFORM INSPECTOR [address] [facility], [place] [address] PCP - General Family Medicine 06/01/23 Assistant Plant Control Operator Relationship Specialty Start Date End Date Lenore Shannonela WENDY Villagomez [address] [place] [address] PCP - General Internal Medicine 04/10/24 Assistant Plant Control Operator Relationship Specialty Start Date End Date Reva ShannonWENDY [address] [place] [address] PCP - General Internal Medicine 04/10/24 Assistant Plant Control Operator Relationship Specialty Start Date End Date Lenore Shannonela WENDY Villagomez [address] [place] [address] PCP - General Internal Medicine 04/10/24 Assistant Plant Control Operator Relationship Specialty Start Date End Date Reva Shannon CNP [address] [place] [phone] PCP - General Internal Medicine 04/10/24 Team Status: Active Member Role Status Dates YASSINE Ribeiro Primary Care Provider Active Team Status: Inactive Member Role Status Dates Rupal Velazquez DO Attending Provider Active Sta rt: September 03, 2024 End: September 03, 2024 YASSINE Ribeiro Primary Care Provider Active Start: September 03, 2024 End: September 03, 2024 Team Status: Inactive Member Role Status Dates YASSINE Ribeiro Primary Care Provider Active Start: September 30, 2024 End: September 30, 2024 Rupal Velazquez DO Attending Provider Active Sta rt: September 30, 2024 End: September 30, 2024 Goals (unrecognized section and content) Goals may be documented in a n alternate section Source Comments (unrecognize d section and content) In the event this informatio n is protected by the Federal Confidentiality of Alcohol and Drug Abuse Patient Records regulations: The Federal rules restrict any use of the information to criminally investigate or prosecute any alcohol or drug abuse patient.[facility]edoIn the event this information is protected by the Federal Confidentiality of Alcohol and Drug Abuse Patient Records regulations: The Federal rules restrict any use of the information to criminally investigate or prosecute any alcohol or drug abuse patient.[facility]edoIn the event this information is protected by the Federal Confidentiality of Alcohol and Drug Abuse Patient Records regulations: The Federal rules restrict any use of the information to criminally investigate or prosecute any alcohol or drug abuse patient.[facility]edoIn the event this information is protected by the Federal Confidentiality of Alcohol and Drug Abuse Patient Records regulations: The Federal rules restrict any use of the information to criminally investigate or prosecute any alcohol or drug abuse patient.[facility]edoIn the event this information is protected by the Federal Confidentiality of Alcohol and Drug Abuse Patient Records regulations: The Federal rules restrict any use of the information to criminally investigate or prosecute any alcohol or drug abuse patient.[facility] Reason for Visit (unrecogniz ed section and content) Reason Comments Cataract Evaluation Reason Comments Post-op Post op davinci chol ecystectomy and umbilical hernia repair performed 05/24/23 at [facility] Reason Comments Pre-Op Visit Reason Comments Pre-Op Exam Reason Comments Post-Op Visit Specialty Diagnoses / Procedures Referred By Mercedes t Referred To Contact [facility] Diagnoses Combined 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 Combined 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 [H25.812] Procedures XCAPSL CTRC RMVL INSJ IO LENS PROSTH W/O ECP OPH BMTRY PRTL COHER INTRFRMTRY IO LENS PWR GEOVANNA PHACOEMULSIFICATION CATARACT IMPLANT INTRAOCULAR LENS W/O ENDOSCOPIC CYCLOPHOTOCOAGULATION OPHTHALMIC BIOMETRY BY PARTIAL COHERENCE INTERFEROMETRY W/INTRAOCULAR LENS POWER CALCULATION Ambulatory Surgery [address] [place] [address] Phone: tel: Referral ID Status Reason Start Date Expiration Date Visits Re quested Visits Authorized [id number] 1 1 Reason Comments Post-op (Ophthalmology) Both [...] BE BASED ON THE PRIMARY CLINICAL RECORDS. [employer] provides no warranty or guarantee of the accuracy or completeness of information in this document.
== END 2024-10-17 13:43 | disposition home or self-care (01) ==
LOC: LAB 13:45
PROVIDERS: PCP Nurse Practitioner Family; Visit Provider Nurse Practitioner Family
DX: H53.2 Diplopia (principal)
CPT/HCPCS: 36415; 86618

== ENCOUNTER 2024-12-17 07:54 | Outpatient (OUT) | payer MEDICARE, SELFPAY ==
--- OUTSIDE RECORDS SUMMARY | 2024-12-17 07:58 | XMS_ITS | CCD ---
Author Organization [facility] CliniSytx Care Team Providers Care Edge Grinder Name Role Phone Luiz Jimenez Unavailable REVA SHANNON Admitting Unavailable SHIVA, REVA Attending Unavailable MADHAVI, DR ZULEMA Obando Consulting Unavailable SHIVA, REVA Primary Care Unavailable SHIVA, REVA Consulting Unavailable SHIVA, REVA Attending Unavailable SHIVA, REVA Consulting Unavailable SHIVA, REVA Primary Care Unavailable SHIVA, REVA Admitting Unavailable SHIVA, REVA Primary Care Unavailable LINDSEY ., DR PAT Admitting Unavailable MELISSAY ., DR PAT Attending Unavailable MELISSAY ., DR PAT Consulting Unavailable MADHAVI, DR ZULEMA Obando Consulting Unavailable DO Jaciel Echavarria Attending Provider SHIVA REVA S Primary Care Physician LAKEISHA JUNG Attending Unavailable SHIVA, REVA S Referring Unavailable SHIVA, REVA S Primary Care Unavailable SHIVA, REVA S Referring Unavailable SHIVA, REVA S Primary Care Unavailable SHIVA, REVA S Referring Unavailable SHIVA, REVA S Primary Care Unavailable JACIEL ECHAVARRIA Attending Unavailable JACIEL ECHAVARRIA Referring Unavailable SHIVA, REVA S Primary Care Unavailable GRJACIEL PULIDO Attending Unavailable GRILLIS JACIEL E Referring Unavailable SHIVA, REVA S Primary Care Unavailable Zack Gibson Referring Unavailable SHIVA, REVA S Primary Care Unavailable MD Jaciel Henry Attending Provider Jaciel Echavarria Admitting Unavailable Jaciel Echavarria Attending Unavailable Jaciel Henry R Admitting Unavailable NilJaciel wright Attending Unavailable Jaciel Henry Admitting Unavailable Jaciel Henry Attending Unavailable Gabinol Jaciel FRANCISCO Attending Provider [phone] Unavailable Primary Care Provider Unavailnatalya Shannon PRODUCTION HARDENER-EMERGENCY MEDICAL SERVICE MANAGER, Reva S Primary Care Provider Unavailable Primary Care Provider Unavailnatalya e Shiva NGUYEN, Reva S Primary Care Provider [phone] DESIREE ROONEY A Admitting Unavailable TAO, DESIREE A Referring [...] Care Unavailable Rupal Velazquez DO Attending Provider [phone] Shiva COPPERSMITH HELPER-C, Reva Cespedes Primary Care Provider GABINOL, Jaciel R Attending Unavailable NILL, Jaciel R Attending Unavailable NILL, Jaciel R Attending Unavailable SHIVA, REVA S Referring Unavailable NILL, Jaciel R Attending Unavailable NILL, Jaciel R Attending Unavailable NILL, Jaciel R Attending Unavailable Allergies Allergy Classification Reported Allergen(s) Allergy Type Date of Onset Reaction(s) Facility (1 source) No Known Medication Allergies; Translations: [No Known Medication Allergies] Propensity to adverse reactions (disorder) [facility] Repository Medications Current Medications Medication Drug [...] EVALon 025 ANES POSTPROC EVAL HNO ID: [id number] Author: DAVID ALLISON MD Service: Anesthesiology Author Type: Anesthesiologist Type: Anesthesia Postprocedure Evaluation Filed: 05/22/2024 14:10 Note Text: POST ANESTHESIA EVALUATION NOTE : 1945 Procedure Summary Date: 05/22/24 Room / Location: [address] Anesthesia Start: 1131 Anesthesia Stop: 1159 [...] May 22, 2024 TIME: 2:09 PM CSN: [id number] Normal [facility] ANES PRE-OPon 05-22-2024 ANES PRE-OP HNO ID: [id number] Author: DAVID ALLISON MD Service: Anesthesiology Author Type: Anesthesiologist Type: Anesthesia Preprocedure Evaluation Filed: 05/22/2024 10:59 Note Text: ANESTHESIOLOGY DAY OF SURGERY NOTE : 1945 Procedure Information Date/Time: 05/22/24 1050 Procedures: PHACOEMULSIFICATION CATARACT IMPLANT INTRAOCULAR LENS W/O ENDOSCOPIC CYCLOPHOTOCOAGULATION (Left: Eye) OPHTHALMIC BIOMETRY BY PARTIAL COHERENCE INTERFEROMETRY W/INTRAOCULAR LENS POWER CALCULATION (Left: Eye) Location: [address] Surgeons: Desiree Rooney MD Estimated body [...] May 22, 2024 TIME: 10:58 AM CSN: [id number] [facility] OPERATIVE NOon 05-22-2024 OPERATIVE NO HNO ID: [id number] Author: DESIREE ROONEY MD Service: Ophthalmology Author Type: Physician Type: Operative Report Filed: 07/10/2024 08:07 Note Text: OPERATIVE/PROCEDURE REPORT LOG ID: [id number] Surgery/Procedure Date: 05/22/2024 Incision/Procedure Start Time: 11:46 AM Incision Close/Procedure End Time: 11:53 AM Surgeon(s)/Proceduralist(s) and Store Clerk(s): Surgeons and Role: * Desiree Rooney MD - Primary Store Clerk: None. Any nurse listed as assisting or [...] surgery, correct implant and all allergies. The [employer] Lens verification Policy was meticulously followed as previously approved with both an initial lens verification by myself in the presence of the Nurse Coordinator and the orthotics prosthetics technician and a secondary full lens verification as part of the Time Out, with patient identity, laterality, and lens choice confirmed against the source document by myself, the Street Light Servicer Nurse, and the orthotics prosthetics technician. Topical lidocaine gel 2% was placed [...] Using the Suleiman phacoemulsification unit with the POPVOX curved tip, the anterior chamber was entered [...] the entire procedure. Comanage with Dr. Gray; [facility] POD #1. SIGNATURE: Desiree Rooney MD PATIENT NAME: Abigail Washington DATE: May 22, 2024 TIME: 11:54 AM PAGER/CONTACT #: Cam [facility] ANES POSTPROC EVALon 025 ANES POSTPROC EVAL HNO ID: [id number] Author: MARCIANO ANGEL II, DO Service: Anesthesiology Author Type: Anesthesiologist Type: Anesthesia Postprocedure Evaluation Filed: 05/01/2024 12:59 Note Text: POST ANESTHESIA EVALUATION NOTE : 1945 Procedure Summary Date: 05/01/24 Room / Location: [address] Anesthesia Start: 1127 Anesthesia Stop: 1144 [...] May 01, 2024 TIME: 12:59 PM CSN: [id number] Normal [facility] ANES PRE-OPon 05-01-2024 ANES PRE-OP HNO ID: [id number] Author: MARCIANO ANGEL II, DO Service: Anesthesiology Author Type: Anesthesiologist Type: Anesthesia Preprocedure Evaluation Filed: 05/01/2024 10:46 Note Text: ANESTHESIOLOGY DAY OF SURGERY NOTE : 1945 Procedure Information Date/Time: 05/01/24 1100 Procedures: PHACOEMULSIFICATION CATARACT IMPLANT INTRAOCULAR LENS W/O ENDOSCOPIC CYCLOPHOTOCOAGULATION (Right: Eye) OPHTHALMIC BIOMETRY BY PARTIAL COHERENCE INTERFEROMETRY W/INTRAOCULAR LENS POWER CALCULATION (Right: Eye) Location: [address] Surgeons: Desiree Rooney MD Estimated body [...] May 01, 2024 TIME: 10:40 AM CSN: [id number] Normal [facility] OPERATIVE NOon 05-01-2024 OPERATIVE NO HNO ID: [id number] Author: DESIREE ROONEY MD Service: Ophthalmology Author Type: Physician Type: Operative Report Filed: 05/01/2024 11:43 Note Text: OPERATIVE/PROCEDURE REPORT LOG ID: [id number] Surgery/Procedure Date: 05/01/2024 Incision/Procedure Start Time: 11:35 AM Incision Close/Procedure End Time: 11:41 AM Surgeon(s)/Proceduralist(s) and Store Clerk(s): Surgeons and Role: * Desiree Rooney MD - Primary Store Clerk: None. Any nurse listed as assisting or [...] surgery, correct implant and all allergies. The [employer] Lens verification Policy was meticulously followed as previously approved with both an initial lens verification by myself in the presence of the Nurse Coordinator and the orthotics prosthetics technician and a secondary full lens verification as part of the Time Out, with patient identity, laterality, and lens choice confirmed against the source document by myself, the Street Light Servicer Nurse, and the orthotics prosthetics technician. Topical lidocaine gel 2% was placed [...] Implant Name Type Inv. Item Serial No. Motor Mechanic Lot No. LRB No. Used Action Model No. [id number] [employer] - [id number] Intraocular Lens [id number] [employer] [id number] [employer] Right 1 Implanted [id number] Drains: None. Complications: None. I performed the entire procedure. Comanage with Dr. Gray; [facility] POD #1. SIGNATURE: Desiree Rooney MD PATIENT NAME: Abigail Washington DATE: May 01, 2024 TIME: 11:43 AM PAGER/CONTACT #: Normal [facility] ASCAN ONLY - DIAGNOSTIC OU ( BOTH EYES)on 04-26-2024 [facility] Radiology Study observation (narrative) [facility] HISTORY PHYSICALon HISTORY PHYSICAL HNO ID: [id number] Author: TYLER BELTRAN APRN.CNP Service: ? Author [...] have a large neck STOP-Bang Score: 2 [id number] Score: Age: >=75 Sex: male CHF history: No Hypertension history: No Stroke/TIA/thromboembolism history: No Vascular disease history: No Diabetes history: No HKW9NP3-DTSh Score: 2 ARISCAT Score: Age: 51-80 Preoperative [...] Pitts present: yes Lip Bite Test: II Microretrognathia/Micronagthi a/Recessed Chin: No DENTAL Dentures, upper: complete. Dentures, [...] Vision,burning,decreased vision,difficulty with driving,difficulty with reading,double vision,dryness,eye discharge,glare,itching,teari ng . No alleviating factors. No pain today REVIEW OF SYSTEMS: PAIN ASSESSMENT: General: No weight loss, malaise or fevers. Neuro: No history of TIA's, stroke, PACKAGING CLERK tumor, impaired sensorium, hemiplegia, paraplegia or quadraplegia. No neurological symptoms or problems. Respiratory: No history of current cough or dyspnea, or pneumonia in the past 6 weeks. No history of respiratory/pulmonary symptoms or problems. Cardiovascular: No history of HTN requiring medication, no history of angina, CHF, IA, cardiac surgery or stents. Denies rest pain, [...] of CA (more content not included)... Normal [facility] IOL BIOMETRY W/ IOL CALC OU (BOTH EYES)on 04-26-2024 [facility] Radiology Study observation (narrative) [facility] Ambulatory Visit Summaryon 1 04-08-2023 Ambulatory [...] CASE When: Only if needed Where: [address] [place] [address]- Medications What How Much When Instructions Unchanged [...] choosing us for your care. Cam [facility] General Surgery Office/Clini c Noteon 02-06-2024 [...] CASE Bautista Only if needed [address] [place] [address]- Additional Instructions: Problem List/Past Medical [...] virus vaccine, inactivated 11/23/2022 Recorded SARS-CoV-2 (COVID-19) mRNAMUL.ORD![id number] 12/14/2021 Recorded SARS-CoV-2 (COVID-19) mRNA BNT-162b2 vax 06/29/2021 Recorded SARS-CoV-2 (COVID-19) mRNA-1273 vaccine 01/06/2021 Recorded SARS-CoV-2 (COVID-19) mRNA-1273 vaccine 06/04/2020 Recorded SARS-CoV-2 (COVID-19) mRNA-1273 vaccine 05/07/[address] [facility] Comment on above: Result Comment: Elec [...] EST With: ELAINE FRANCISCO, Jaciel Obando Where: [facility] Surgery [address], [address], [place] [phone]- Medications What How Much When Instructions Unchanged [...] for choosing us for your care. Normal [facility] General Surgery Office/Clini c Noteon 01-24-2024 General Surgery Office/Clinic Note General Surgery Office/Clinic Note Chief Complaint post operative follow up HPI Staff 7 day post operative follow up post robotic assisted umbilical hernia repair. Reports minimal discomfort. Taking Hydrocodone BID and Ibuprofen 600mg BID. Denies bleeding or drainage. [place] moving well. Wearing abdominal binder as directed. [...] virus vaccine, inactivated 11/23/2022 Recorded SARS-CoV-2 (COVID-19) mRNAMUL.ORD![id number] 12/14/2021 Recorded SARS-CoV-2 (COVID-19) mRNA BNT-162b2 vax 06/29/2021 Recorded SARS-CoV-2 (COVID-19) mRNA-1273 vaccine 01/06/2021 Recorded SARS-CoV-2 (COVID-19) mRNA-1273 vaccine 06/04/2020 Recorded SARS-CoV-2 (COVID-19) mRNA-1273 vaccine 05/07/[address] [facility] Comment on above: Result Comment: Elec tronically Signed By: ELAINE FRANCISCO, Jaciel Hall\Date and Time Signed: 01/24/24 14:51 EST Pathology study report docum entOrdered By: Humberto Perkins on 01-18-2024 Pathology study [facility] Other Phone: Leonides 01-17-2024 L --------- ----- Specimen: [id number] Received: 01/17/24 Status: BRENT Valenzuela Num: [id number] Spec Type: Surgical Subm Dr: Jaciel Henry MD FACS Tissues: A Hernia Sac (HERNIA SAC) Procedures: Obdulio BAZAN/Micky L2 ----- Age/ Patient Sex Location Account Attending Physician ----- Abigail Washington 78/M LABELL [id number] Jaciel Henry MD FACS ----- SPEC NUM: [id number] RECD: 01/17/24 STATUS: BRENT TADEOJosefina NUM: [id number] DAMARI: 01/17/[address] [facility] [address]: Jaciel Henry MD FACS ENTERED: 01/17/[address]: Gonzalez Orantes SPEC TYPE: Surgical DEPT: [facility] ENTERED BY: [id number] RECV BY: [id number] ORDERED: Obdulio BAZAN/Micky L2 ORDERED: Obdulio BAZAN/Micky L2 Pathological Diagnosis Soft tissue, ventral region, [...] to pink, glistening and uniform cut surfaces. Managing Partner sections are submitted in a single cassette. (1, , [id number]) CHELSEY ----- Specimen: [id number] Received: 01/17/24 Status: BRENT Valenzuela Num: [id number] Spec Type: Surgical Subm Dr: Jaciel Henry MD FACS Tissues: A Hernia Sac (HERNIA SAC) Procedures: Obdulio BAZAN/Micky L2 ----- Patient: Abigail Washington [id number] (Continued) ----- Specimen: [id number] Received: 01/17/24 (Continued) Signed (signature on file) Humberto Perkins MD 01/18/24 1801 ----- Specimen: [id number] Received: 01/17/24 Status: BRENT Valenzuela Num: [id number] Spec Type: Surgical Subm Dr: Jaciel Henry MD FACS Tissues: A Hernia Sac (HERNIA SAC) Procedures: Obdulio BAZAN/Micky L2 ----- Patient: Abigail Washington [id number] (Continued) ----- Specimen: [id number] Received: 01/17/24 (Continued) Microscopic Description Microscopic examinations are performed supporting the above interpretation CPT Codes 12879 ----- ----- Specimen: [id number] Received: 01/17/24 Status: BRENT Valenzuela Num: [id number] Spec Type: Surgical Subm Dr: Jaciel Henry MD FACS Tissues: A Hernia Sac (HERNIA SAC) Procedures: BENI, Obdulio/Micky L2 ----- Patient: Abigail Washington [id number] (Continued) ----- Signed (signature on file) Humberto Perkins MD 01/18/241800 Normal [facility] Ambulatory Visit Summaryon 1 03-11-2023 [...] you for choosing us for your care. [facility] Ambulatory Visit Summaryon 0 11-21-2023 Ambulatory [...] for choosing us for your care. Normal [facility] Leonides 08-09-2023 L Specimen: [id number] R eceived: 08/10/23 Status: [facility] Linda Num: [id number] Spec Type: Surgical Subm Dr: Jaciel Henry MD FACS Tissues: A Colon Biopsy (SIGMOID POLYP) Procedures: HE/2, Gross/Micro L4 Age/ Patient Sex Location Account Attending Physician Abigail Washington 77/M LABELL [id number] Jaciel Henry MD FACS SPEC NUM: [id number] RECD: 08/10/23 STATUS: [facility] NUM: [id number] DAMARI: 08/09/[address]: Jaciel Henry MD FACS ENTERED: 08/10/[address] [facility] [address]: Gonzalez Orantes SPEC TYPE: Surgical DEPT: [facility] ORDERED: [...] cm, entirely submitted in A1. CPT Codes 01878 ----- ----- Specimen: [id number] Received: 08/10/23 Status: BRENT Valenzuela Num: [id number] Spec Type: Surgical Subm Dr: Jaciel Henry MD FACS Tissues: A Colon Biopsy (SIGMOID POLYP) Procedures: BENI/Herlinda, Obdulio/Micky L4 ----- Patient: Abigail Washington [id number] (Continued) ----- Signed (signature on file) Humberto Perkins MD 08/14/23 1556 Normal [facility] ASPIRATE CULTUREon 4 Bacteria identified Aer cx Nom (Asp) GRAM STAIN 10 to 24 WHITE BLOOD CELLS/LPF 0 SQUAMOUS EPITHELIAL CELLS/LPF NO ORGANISMS SEEN CULTURE RESULTS NO GROWTH 3 DAYS Normal [facility] Comment on above: Performed By: #### 5 97-5 #### [facility] ([id number]) [address], [address] [place] [address] COMPREHENSIVE METABOLIC PANE [facility] 07-20-2023 Albumin [Mass/Vol] 3.5 g/dL Normal 3.2-5.3 [facility] Comment on above: Performed By: #### C MP #### [facility] ([id number]) [address] [place] [address]34 ALP [Catalytic activity/Vol] 298 U/L High 39-130 [facility] Comment on above: Performed By: #### C MP #### [facility] [place] ([id number]) [address] [place] [address] 90436 ALT [Catalytic activity/Vol] 32 U/L Normal 0-40 [facility] Comment on above: Performed By: #### C MP #### [facility] ([id number]) [address] [place] [address] 66110 Anion gap [Moles/Vol] 10 mmol/L Normal 5-15 [facility] Comment on above: Performed By: #### C MP #### [facility] [place] ([id number]) [address] [place] [address] 08411 AST [Catalytic activity/Vol] 36 U/L Normal 0-41 [facility] Comment on above: Performed By: #### C MP #### [facility] ([id number]) [address] [place] [address] 61294 Bilirubin [Mass/Vol] 1.0 mg/dL Normal 0.3-1.2 [facility] Comment on above: Performed By: #### C MP #### [facility] [place] ([id number]) [address] [place] [address] 17803 Calcium [Mass/Vol] 8.8 mg/dL Normal 8.5-10.5 [facility] Comment on above: Performed By: #### C MP #### [facility] [place] ([id number]) [address] [place] [address] 87052 Chloride [Moles/Vol] 101 mmol/L Normal 98-109 [facility] Comment on above: Performed By: #### C MP #### [facility] ([id number]) [address] [place] [address] 37539 CO2 [Moles/Vol] 25 mmol/L Normal 22-32 [facility] Comment on above: Performed By: #### C MP #### [facility] ([id number]) [address] [place] [address] 25326 Creatinine [Mass/Vol] 0.89 mg/dL Normal 0.70-1.20 [facility] Comment on above: Result Comment: METH OD TRACEABLE TO IDMS STANDARD Performed By: #### C MP #### [facility] [place] ([id number]) [address] [place] [address] 89693 GFR/1.73 sq M.predicted among non-blacks MDRD (S/P/Bld) [Vol rate/Area] 89 mL/min/{1.73_m2} Normal >59 [facility] Comment on above: Result Comment: Reported eGFR is based on the CKD-EPI 2020 equation that does not use a race coefficient. Performed By: #### C MP #### [facility] [place] ([id number]) [address] [place] [address] 05495 Glucose [Mass/Vol] 104 mg/dL High 65-99 [facility] Comment on above: Performed By: #### C MP #### [facility] ([id number]) [address] [place] [address] 70677 Potassium [Moles/Vol] 4.0 mmol/L Normal 3.5-5.0 [facility] Comment on above: Performed By: #### C MP #### [facility] [place] ([id number]) [address] [place] [address] 15511 Protein [Mass/Vol] 7.8 g/dL Normal 6.0-8.0 [facility] Comment on above: Performed By: #### C MP #### [facility] ([id number]) [address] [place] [address] 74123 Sodium [Moles/Vol] 136 mmol/L Normal 134-146 [facility] Comment on above: Performed By: #### C MP #### [facility] ([id number]) [address] [place] [address] 21587 Urea nitrogen [Mass/Vol] 17 mg/dL Normal 5-27 [facility] Comment on above: Performed By: #### C MP #### [facility] ([id number]) [address] [place] [address] 38842 Cytologyon 07-20-2023 Cytology Normal [facility] Comment on above: Result Comment: [facility] [address] [place] [address] Cytology Consultation Patient Name:ABIGAIL WASHINGTON:1945 (Age: 77)Gender:MTaken:07/20/2023eported:07/21/2023 11:52Physician(s):Zack Gibson M.D. ([phone])Copy To:Jaciel Echavarria D.O. Rec. #:[id number]: #[id number] Final Cytologic Diagnosis Bile leak fluid: No malignant cells identified. [facility]/07/21/[address] [facility], [address] , [place] [address], License number: [id number].Electronically Signed Out By Jerrod Batista M.D. Clinical History None given. Gross Description Received was 1,600 mL of brown fluid unfixed labeled as [place]ib[place]um, bile leak . CytoLyt added in lab. Specimen placed in formalin at 14:00 and had a total fixation time of 12 hours. Source of Specimen Bile leak fluid Cell block for Non-shake splitter (M), Level 2 H&E, Non WOUND/OSTOMY CLINICAL NURSE SPECIALIST ThinPrep Fee Code(s): 1; 05757, 08776 IR BILIARY DRAIN INTERNAL/EX T COMPon 07-20-2023 [...] in its inferior portion with a 10 Tamazight pigtail drainage catheter, using trocar technique. A [...] Gibson MD on 07/20/2023 12:51 PM Normal [facility] NM HEPATOBILIARY SYS IMAGING WO PHARMACOLOGIC [...] Wan MD on 07/20/2023 7:35 AM Normal [facility] PLATELET COUNT AND MPVon Platelet mean volume (Bld) [Entitic vol] 7.2 fL Normal 7-12 [facility] Comment on above: Performed By: #### P LTCT, PINR #### [facility] ([id number]) [address] [place] [address] 26696 Platelets (Bld) [#/Vol] 247 10*3/uL Normal 150-450 [facility] Comment on above: Performed By: #### P LTCT, PINR #### [facility] ([id number]) [address] [place] [address] 75512 PROTIME AND INRon 07-20-2023 INR Coag (PPP) [Relative time] 1.1 {INR} Normal 0.8-1.1 [facility] Comment on above: Performed By: #### P LTCT, PINR #### [facility] ([id number]) [address] [place] [address] 39963 PT Coag (PPP) [Time] 12.8 s Normal 9.8-13.2 [facility] Comment on above: Result Comment: NEW REFERENCE RANGE Performed By: #### P LTCT, PINR #### [facility] ([id number]) [address] [place] [address] 48399 Multiple labson 05-27-2023 [facility] Surgical Pathologyon 024 [facility] Leonides 05-24-2023 L Specimen: [id number] R eceived: 05/25/23 Status: BRENT Valenzuela Num: [id number] Spec Type: Surgical Subm Dr: Jaciel Echavarria DO Tissues: A Gallbladder (GALLBLADDER) Procedures: HE, Gross/Micro L3 Age/ Patient Sex Location Account Attending Physician ViburnumAbigail Yap 77/M LABELL [id number] Jaciel Echavarria DO SPEC NUM: [id number] RECD: 05/25/23 STATUS: BRENT VALENZUELA NUM: [id number] DAMARI: 05/24/[address]: Jaciel Echavarria DO ENTERED: 05/25/[address]: Lamberto,Lab SPEC TYPE: Surgical DEPT: OMAYRA [...] red- brown to green-angel and denuded. . Managing Partner sections are submitted in one cassette labeled A1. CPT Codes 50174 ----- ----- Specimen: [id number] Received: 05/25/23 Status: BRENT Valenzuela Num: [id number] Spec Type: Surgical Subm Dr: Jaciel Echavarria DO Tissues: A Gallbladder (GALLBLADDER) Procedures: HE, Gross/Micky L3 ----- Patient: Abigail Washington [id number] (Continued) ----- Signed (signature on file) Nikita Dunne MD 05/26/23 1220 Normal [facility] NM STRESS/REST MULTIon 06-06 NM STRESS/REST MULTI Patient: ABIGAIL WASHINGTON Exam Date: 06/06/2022 : 1945 Gender:M Ordering : REVA SHANNON [facility] Admission #: [id number] Family : Order #: [id number] CLICK HERE TO VIEW EXAM RADIOLOGY REPORT [...] M.D. on 06/07/2022 at 07:05 Normal [facility] INSULINon 05-19-2022 Insulin 11.6 uIU/mL Normal 2.6-24.9 [facility] Comment on above: Performed By: #### I NSULIN #### [facility] [address] [place] [address] Dr. Karely Perkins CBC AUTO DIFFon 05-18-2022 BASO # 0.0 103/ul Normal 0.0-0.1 [facility] Comment on above: Performed By: #### C BC #### [facility] [address] [place] [address] Dr. Karely Perkins Basophils/100 WBC (Bld) 0.6 % Normal 0.2-2.0 [facility] Comment on above: Performed By: #### C BC #### [facility] [address] [place] [address] Dr. Karely Perkins EO # 0.2 103/ul Normal 0.0-0.7 [facility] Comment on above: Performed By: #### C BC #### [facility] [address] [place] [address] Dr. Karely Perkins Eosinophils/100 WBC (Bld) 3.9 % Normal 0.9-7.0 [facility] Comment on above: Performed By: #### C BC #### [facility] Laboratory [address] [place] [address] Dr. Karely Perkins Erythrocyte distribution width (RBC) [Ratio] 12.8 % Normal 11.0-15.0 [facility] Comment on above: Performed By: #### C BC #### [facility] Laboratory [address] [place] [address] Dr. Karely Perkins Hematocrit (Bld) [Volume fraction] 48.4 % Normal 42.0-54.0 [facility] Comment on above: Performed By: #### C BC #### [facility] Laboratory [address] [place] [address] Dr. Karely Perkins Hemoglobin (Bld) [Mass/Vol] 15.8 g/dL Normal 14.0-18.0 [facility] Comment on above: Performed By: #### C BC #### [facility] Laboratory [address] [place] [address] Dr. Karely Perkins IG # 0.01 10e3/ul Normal 0.00-0.03 [facility] Comment on above: Performed By: #### C BC #### [facility] Laboratory [address] [place] [address] Dr. Karely Perkins IG % 0.2 % Normal 0.0-0.5 [facility] Comment on above: Performed By: #### C BC #### [facility] Laboratory [address] [place] [address] Dr. Karely Perkins LYMPH # 1.4 103/ul Normal 1.2-3.8 [facility] Comment on above: Performed By: #### C BC #### [facility] Laboratory [address] [place] [address] Dr. Karely Perkins Lymphocytes/100 WBC (Bld) 28.5 % Normal 20.5-60.0 [facility] Comment on above: Performed By: #### C BC #### [facility] Laboratory [address] [place] [address] Dr. Karely Perkins MANUAL DIFF REQ NO Normal [facility] Comment on above: Performed By: #### C BC #### [facility] Laboratory [address] [place] [address] Dr. Karely Perkins MCH (RBC) [Entitic mass] 28.7 pg Normal 25.9-34.0 [facility] Comment on above: Performed By: #### C BC #### [facility] Laboratory [address] [place] [address] Dr. Karely Perkins MCHC (RBC) [Mass/Vol] 32.6 g/dL Normal 29.9-35.2 [facility] Comment on above: Performed By: #### C BC #### [facility] Laboratory [address] [place] [address] Dr. Karely Perkins MCV (RBC) [Entitic vol] 87.8 fL Normal 80.0-94.0 [facility] Comment on above: Performed By: #### C BC #### [facility] Laboratory [address] [place] [address] Dr. Karely Perkins MONO # 0.5 103/ul Normal 0.3-0.8 [facility] Comment on above: Performed By: #### C BC #### [facility] Laboratory [address] [place] [address] Dr. Karely Perkins Monocytes/100 WBC (Bld) 10.3 % Normal 1.7-12.0 [facility] Comment on above: Performed By: #### C BC #### [facility] Laboratory [address] [place] [address] Dr. Karely Perkins NEUT # 2.7 103/ul Normal 1.4-6.5 [facility] Comment on above: Performed By: #### C BC #### [facility] Laboratory [address] [place] [address] Dr. Karely Perkins Neutrophils/100 WBC (Bld) 56.5 % Normal 43.0-75.0 [facility] Comment on above: Performed By: #### C BC #### [facility] Laboratory [address] [place] [address] Dr. Karely Perkins Platelet mean volume (Bld) [Entitic vol] 9.3 fL Critically low 9.5-13.5 [facility] Comment on above: Performed By: #### C BC #### [facility] Laboratory [address] [place] [address] Dr. Karely Perkins PLT 184 103/ul Normal 150-450 [facility] Comment on above: Performed By: #### C BC #### [facility] Laboratory [address] [place] [address] Dr. Karely Perkins RBC 5.51 106/ul Normal 4.70-6.10 [facility] Comment on above: Performed By: #### C BC #### [facility] Laboratory [address] [place] [address] Dr. Karely Perkins WBC 4.9 103/ul Normal 4.0-11.0 [facility] Comment on above: Performed By: #### C BC #### [facility] Laboratory [address] [place] [address] Dr. Karely Perkins GLYCOHEMOGLOBIN A1Con 2022 ADA RECOMMENDATION SEE BELOW Normal [facility] Comment on above: Result Comment: ADA RECOMMENDED LIMIT 4.0 - 6.0 ADA THERAPEUTIC TARGET < 7.0 ACTION SUGGESTED > 7.0 Performed By: #### A 1C #### [facility] Laboratory [address] [place] [address] Dr. Karely Perkins Glucose [Mass/Vol] 120 mg/dL Normal [facility] Comment on above: Performed By: #### A 1C #### [facility] Laboratory [address] [place] [address] Dr. Karely Perkins HbA1c (Bld) [Mass fraction] 5.8 % Normal 4.5-6.2 [facility] Comment on above: Performed By: #### A 1C #### [facility] Laboratory [address] [place] [address] Dr. Karely Perkins LIPID PROFILEon 05-18-2022 CHOL-HDL RATIO NORM SEE BELOW Normal [facility] Comment on above: Result Comment: 3.3 - 4.4 LOW RISK 4.4 - 7.1 AVERAGE RISK 7.1 - 11.0 MODERATE RISK >11.0 HIGH RISK Performed By: #### C MP, LIPID #### [facility] Laboratory [address] [address] [address] Karely Perkins Cholesterol [Mass/Vol] 169 mg/dL Normal <=200 [facility] Comment on above: Performed By: #### C MP, LIPID #### [facility] Laboratory [address] [address] [address] Karely Perkins Cholesterol in HDL [Mass/Vol] 74 mg/dL Critically high 40-60 [facility] Comment on above: Performed By: #### C MP, LIPID #### [facility] Laboratory [address] [address] [address] Karely Perkins Cholesterol in LDL [Mass/Vol] 80.6 mg/dL Normal [facility] Comment on above: Performed By: #### C MP, LIPID #### [facility] Laboratory [address] [address] [address] Karely Perkins Cholesterol.total/ Cholesterol in HDL [Mass ratio] 2.3 {ratio} Normal [facility] Comment on above: Performed By: #### C MP, LIPID #### [facility] Laboratory [address] [address] [address] Karely Perkins HDL NORMAL > or = 60 mg/dl - LO W CARDIOVASCULAR RISK <40 mg/dl - HIGH CARDIOVASCULAR RISK Normal [facility] Comment on above: Performed By: #### C MP, LIPID #### [facility] Laboratory [address] [address] [address] Karely Perkins LDL CALC NORMAL SEE BELOW Normal [facility] Comment on above: Result Comment: <100 mg/dl OPTIMAL 100 - 129 mg/dl NEAR OR ABOVE OPTIMAL 130 - 159 mg/dl BORDERLINE HIGH 160 - 189 mg/dl HIGH >190 mg/dl VERY HIGH Performed By: #### C MP, LIPID #### [facility] Laboratory [address] [address] [address] Karely Perkins Triglyceride [Mass/Vol] 72 mg/dL Normal <=150 [facility] Comment on above: Performed By: #### C MP, LIPID #### [facility] Laboratory [address] [address] [address] Karely Perkins VLDL CALC 14.4 mg/dL Normal [facility] Comment on above: Performed By: #### C MP, LIPID #### [facility] Laboratory [address] [place] [address] Dr. Karely Perknis PROF 14(COMP METB)on 023 Albumin [Mass/Vol] 3.7 g/dL Normal 3.4-5.0 [facility] Comment on above: Performed By: #### C MP, LIPID #### [facility] Laboratory [address] [place] [address] Dr. Karely Perkins Albumin/Globulin [Mass ratio] 1.0 {ratio} Normal [facility] Comment on above: Performed By: #### C MP, LIPID #### [facility] Laboratory [address] [place] [address] Dr. Karely Perkins ALP [Catalytic activity/Vol] 117 U/L Critically high 46-116 [facility] Comment on above: Performed By: #### C MP, LIPID #### [facility] Laboratory [address] [place] [address] Dr. Karely Perkins ALT [Catalytic activity/Vol] 24 U/L Normal 16-63 [facility] Comment on above: Performed By: #### C MP, LIPID #### [facility] [address] [place] [address] Dr. Karely Perkins Anion gap [Moles/Vol] 9.4 mmol/L Normal [facility] Comment on above: Performed By: #### C MP, LIPID #### [facility] Laboratory [address] [place] [address] Dr. Karely Perkins AST [Catalytic activity/Vol] 34 U/L Normal 15-37 [facility] Comment on above: Performed By: #### C MP, LIPID #### [facility] Laboratory [address] [place] [address] Dr. Karely Perkins Bilirubin [Mass/Vol] 0.7 mg/dL Normal 0.2-1.0 [facility] Comment on above: Performed By: #### C MP, LIPID #### [facility] Laboratory [address] [place] [address] Dr. Karely Perkins Calcium [Mass/Vol] 9.0 mg/dL Normal 8.5-10.1 [facility] Comment on above: Performed By: #### C MP, LIPID #### [facility] [address] [address] [address] Karely Perkins Chloride [Moles/Vol] 108 mmol/L Critically high 98-107 [facility] Comment on above: Performed By: #### C MP, LIPID #### [facility] [address] [address] [address] Karely Perkins CO2 [Moles/Vol] 30.7 mmol/L Normal 21.0-32.0 [facility] Comment on above: Performed By: #### C MP, LIPID #### [facility] Laboratory [address] [place] [address] Dr. Karely Perkins Creatinine [Mass/Vol] 0.90 mg/dL Normal 0.70-1.30 [facility] Comment on above: Performed By: #### C MP, LIPID #### [facility] Laboratory [address] [place] [address] Dr. Karely Perkins EGFR-AF KUWAITI >60 Normal >=60 [facility] Comment on above: Performed By: #### C MP, LIPID #### [facility] [address] [place] [address] Dr. Karely Perkins EGFR-NON AF [place]I >60 Normal >=60 [facility] Comment on above: Performed By: #### C MP, LIPID #### [facility] Laboratory [address] [place] [address] Dr. Karely Perkins Globulin (S) [Mass/Vol] 3.6 g/dL Normal [facility] Comment on above: Performed By: #### C MP, LIPID #### [facility] Laboratory [address] [place] [address] Dr. Karely Perkins Glucose [Mass/Vol] 109 mg/dL Critically high 74-106 [facility] Comment on above: Performed By: #### C MP, LIPID #### [facility] Laboratory [address] [place] [address] Dr. Karely Perkins Potassium [Moles/Vol] 4.1 mmol/L Normal 3.5-5.1 [facility] Comment on above: Performed By: #### C MP, LIPID #### [facility] Laboratory [address] [address] [address] Karely Perkins Protein [Mass/Vol] 7.3 g/dL Normal 6.4-8.2 [facility] Comment on above: Performed By: #### C MP, LIPID #### [facility] [address] [address] [address] Karely Perkins Sodium [Moles/Vol] 144 mmol/L Normal 136-145 [facility] Comment on above: Performed By: #### C MP, LIPID #### [facility] [address] [address] [address] Karely Perkins Urea nitrogen [Mass/Vol] 20.0 mg/dL Critically high 7.0-18.0 [facility] Comment on above: Performed By: #### C MP, LIPID #### [facility] [address] [address] [address] Karely Perkins Urea nitrogen/Creatinin e [Mass ratio] 22.2 mg/mg Normal [facility] Comment on above: Performed By: #### C MP, LIPID #### [facility] [address] [address] [address] Karely Perkins US SCROTUMon 11-18-2021 US [...] by: ZULEMA HENDRICKSON Date: 2021-11-18 12:10 Normal [facility] Vital Signs Date Time Vital Sign Value Performing Clinician Lucius keane 09-30-2024 10:57-0400 Body height 170.18 cm Reva Shiva [employer]PERSM[employer] HELPER[employer]C Work Phone: [facility] 09-30-2024 10:57-0400 Body mass index (BMI) [Ratio] 24.3 kg/m2 Reva Shiva [employer] HELPER[employer]C Work Phone: [facility] 09-30-2024 10:57-0400 Body weight 70.3 kg Reva Shiva [employer] HELPER[employer]C Work Phone: [facility] 09-30-2024 10:57-0400 Diastolic blood pressure 88 mm[Hg] Reva Shiva [employer] HELPER[employer]C Work Phone: [facility] 09-30-2024 10:57-0400 Heart rate 56 /min Reva Shiva [employer] HEL[employer]C Work Phone: [facility] 09-30-2024 10:57-0400 SaO2% (BldA) [Mass fraction] 99 % Reva Shiva [employer] HELPER[employer]C Work Phone: [facility] 09-30-2024 10:57-0400 Systolic blood pressure 136 mm[Hg] Reva Shiva [employer] HELPER[employer]C Work Phone: [facility] 09-03-2024 12:37-0400 Body height 170.18 cm Reva Shiva [employer] HELPER[employer]C Work Phone: [facility] 09-03-2024 12:37-0400 Body mass index (BMI) [Ratio] 24.2 kg/m2 Reva Shiva [employer] HELPER[employer]C Work Phone: [facility] 09-03-2024 12:37-0400 Body weight 70.08 kg Reva Shiva [employer]PERS[employer] HELPER[employer]C Work Phone: [facility] 09-03-2024 12:37-0400 Diastolic blood pressure 81 mm[Hg] Reva Garciamer [employer] HELPER[employer]C Work Phone: [facility] 09-03-2024 12:37-0400 Heart rate 62 /min Reva Garciamer [employer] HELPER[employer]C Work Phone: [facility] 09-03-2024 12:37-0400 SaO2% (BldA) [Mass fraction] 99 % Reva Garciamer [employer] HELPER[employer]C Work Phone: [facility] 09-03-2024 12:37-0400 Systolic blood pressure 148 mm[Hg] Reva Garciamer [employer]ERS[employer] HELPER[employer]C Work Phone: [facility] 04-26-2024 10:05-0500 Body height 170.2 cm Pacc 1 Work Phone: [facility] 04-26-2024 10:05-0500 Body mass index (BMI) [Ratio] 25.55 kg/m2 Pacc 1 Work Phone: [facility] 04-26-2024 10:05-0500 Body temperature 97.9 [degF] Pacc 1 Work Phone: [facility] 04-26-2024 10:05-0500 Body weight 74 kg Pacc 1 Work Phone: [facility] 04-26-2024 10:05-0500 Diastolic blood pressure 88 mm[Hg] Pacc 1 Work Phone: [facility] 04-26-2024 10:05-0500 Heart rate 86 /min Pacc 1 Work Phone: [facility] 04-26-2024 10:05-0500 Respiratory rate 16 /min Pacc 1 Work Phone: [facility] 04-26-2024 10:05-0500 SaO2% (BldA) [Mass fraction] 99 % Pacc 1 Work Phone: [facility] 04-26-2024 10:05-0500 Systolic blood pressure 144 mm[Hg] Pacc 1 Work Phone: [facility] 01-10-2024 13:49-0500 Blood Pressure Location Jaciel NILL [facility] 01-10-2024 13:49-0500 Diastolic blood pressure 94 mm[Hg] Jaciel NILL [facility] 01-10-2024 13:49-0500 Heart rate 72 /min Jaciel NILL [facility] 01-10-2024 13:49-0500 Respiratory rate 16 /min Jaciel NILL [facility] 01-10-2024 13:49-0500 Systolic blood pressure 146 mm[Hg] Jaciel NILL [facility] 11-21-2023 13:38-0400 Blood Pressure Location Jaciel NILL [facility] 11-21-2023 13:38-0400 Diastolic blood pressure 84 mm[Hg] Jaciel NILL [facility] 11-21-2023 13:38-0400 Heart rate 72 /min Jaciel NILL [facility] 11-21-2023 13:38-0400 Respiratory rate 16 /min Jaciel NILL [facility] 11-21-2023 13:38-0400 Systolic blood pressure 136 mm[Hg] Jaciel NILL [facility] 07-11-2023 13:24-0400 Blood Pressure Location Jaciel NILL [facility] 07-11-2023 13:24-0400 Diastolic blood pressure 80 mm[Hg] Jaciel NILL [facility] 07-11-2023 13:24-0400 Heart rate 72 /min Jaciel NILL [facility] [place] 07-11-2023 13:24-0400 Respiratory rate 16 /min Jaciel HENRY [facility] [place] 07-11-2023 13:24-0400 Systolic blood pressure 126 mm[Hg] Jaciel HENRY [facility] 06-07-2023 11:36-0400 Body height 170.2 cm Lakeisha Jung PRODUCTION HARDENER-EMERGENCY MEDICAL SERVICE MANAGER Work Phone: [facility] [employer] [facility] 06-07-2023 11:36-0400 Body mass index (BMI) [Ratio] 25.31 kg/m2 Lakeisha Jung PRODUCTION HARDENER-EMERGENCY MEDICAL SERVICE MANAGER Work Phone: [employer] [facility] 06-07-2023 11:36-0400 Body weight 73.3 kg Lakeisha Jung PRODUCTION HARDENER-EMERGENCY MEDICAL SERVICE MANAGER Work Phone: [facility] [employer] [facility] 06-07-2023 11:36-0400 Diastolic blood pressure 95 mm[Hg] Lakeisha Jung PRODUCTION HARDENER-EMERGENCY MEDICAL SERVICE MANAGER Work Phone: [employer] 06-07-2023 11:36-0400 Heart rate 81 /min Lakeisha Jung PRODUCTION HARDENER-EMERGENCY MEDICAL SERVICE MANAGER Work Phone: [employer] 06-07-2023 11:36-0400 Systolic blood pressure 178 mm[Hg] Lakeisha Jung PRODUCTION HARDENER-EMERGENCY MEDICAL SERVICE MANAGER Work Phone: [facility] Encounters Encounter Date Encounter Type Care Provider Facility Start: 10-30-2024 ambulatory REVA SHANNON Facilit y:[facility] [place] Start: 09-30-2024 End: 09-30-2024 ambulatory Reva Shannon [employer] HELPER-C Work Phone: [facility] Work Phone: Start: 09-30-2024 End: 09-30-2024 Patient encounter procedure Rupal Velazquez DO -[facility] [place] Work Phone: Start: 09-03-2024 End: 09-03-2024 ambulatory Reva Shannon [employer]PERSM[employer] HELPER-C Work Phone: [facility] Work Phone: Start: 09-03-2024 End: 09-03-2024 Patient encounter procedure [facility] Work Phone: Start: 05-23-2024 End: 05-23-2024 ambulatory REVA SHANNON Facility:[facility] Start: 05-23-2024 End: 05-23-2024 Patient encounter procedure Desiree Rooney MD Work Phone: Ophthalmology Comment on above: Pseudophakia of both eyes (Primary Dx); Fourth nerve palsy of left eye Start: 05-22-2024 End: 05-22-2024 ambulatory DESIREE ROONEY Facility:[facility] Start: 05-22-2024 End: 05-22-2024 Patient encounter procedure Nanette Santa OD Work Phone: Ophthalmology Comment on above: Pseudophakia, right eye (Primary Dx); Combined 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; Fourth nerve palsy of left eye Start: 05-01-2024 End: 05-01-2024 ambulatory DESIREE ROONEY Facility:[facility] Start: 04-26-2024 End: 04-26-2024 Patient encounter procedure Eye Measurements Work Phone: Ophthalmology Comment on above: Combined forms of ag e-related cataract of right eye; Combined 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 Start: 04-26-2024 End: 04-26-2024 Admission to establishment [facility] [place] [facility] Work Phone: Pre Anesthesia Start: 04-26-2024 End: 04-26-2024 ambulatory DESIREE ROONEY Facility:[facility] Start: 04-26-2024 End: 04-26-2024 Anesthesia consultation [facility] [place] [facility] Work Phone: Pre Anesthesia Comment on above: Pre-op evaluation (P rimary Dx); Hyperlipidemia, unspecified hyperlipidemia type; Gastroesophageal reflux disease without esophagitis Start: 04-26-2024 Encounter for other preprocedural examination DESIREE ROONEY [facility] Start: 04-26-2024 End: 04-26-2024 Preprocedural examination done [facility] [place] [facility] Work Phone: [facility] Work Phone: Start: 04-10-2024 End: 04-10-2024 ambulatory DAVY GRAY Facility:[facility] Start: 04-02-2024 End: 04-02-2024 ambulatory DESIREE ROONEY Facility:[facility] Start: 04-02-2024 End: 04-02-2024 Patient encounter procedure Desiree Rooney MD Work Phone: Ophthalmology Comment on above: Combined forms of ag e-related cataract of right eye (Primary Dx); Combined 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; Anatomical narrow angle, bilateral; Fourth nerve palsy of left eye Start: 02-06-2024 End: 02-06-2024 ambulatory Jaciel HENRY Facility:[facility] Start: 02-06-2024 End: 02-06-2024 Patient encounter procedure Jaciel HENRY [facility] [place] Start: 01-24-2024 End: 01-24-2024 ambulatory Jaciel HENRY [facility] Start: 01-24-2024 End: 01-24-2024 Patient encounter procedure Jaciel HENRY [facility] Start: 01-17-2024 End: 01-17-2024 ambulatory Jaciel Henry Facility:[facility] Start: 01-17-2024 End: 01-17-2024 Departed Referred Jaciel Henry MD Work Phone: [facility] [place] [facility] Start: 01-17-2024 End: 01-17-2024 ambulatory Jaciel HENRY Facility:[id number] Start: 01-10-2024 End: 01-10-2024 ambulatory Jaciel HENRY Facility:[facility] Start: 01-10-2024 End: 01-10-2024 Patient encounter procedure Jaciel HENRY [facility] Start: 01-03-2024 Non-patient / Non-visit Armin Henry MD Work Phone: [facility] Work Phone: Start: 11-21-2023 End: 11-21-2023 ambulatory Jaciel Gisella ELAINE Facility:[facility] Start: 11-21-2023 End: 11-21-2023 Patient encounter procedure Jaciel HENRY [facility] Start: 08-29-2023 End: 08-29-2023 Patient encounter procedure Jaciel HENRY [facility] Start: 08-09-2023 End: 08-09-2023 ambulatory Jaciel Henry [facility] Work Phone: Start: 08-09-2023 End: 08-09-2023 Departed Referred DO Jaciel Echavarria Work Phone: [facility] [place] [facility] Start: 07-24-2023 End: 07-25-2023 Telephone encounter Christie Alcala [facility] General Surgery Start: 07-20-2023 End: 07-20-2023 ambulatory REVA Villagomez SHIVA [facility] Start: 07-20-2023 End: 07-20-2023 ambulatory JACIEL ECHAVARRIA [facility] Start: 07-19-2023 End: 07-19-2023 Orders Only Jaciel Echavarria DO Work Phone: [facility] Surgeons Sign In Comment on above: [...] Start: 07-17-2023 End: 07-17-2023 Telephone encounter Ronda Kiarra [facility] General Surgery Start: 07-11-2023 End: 07-11-2023 [facility] [place] Start: 06-07-2023 End: 06-07-2023 ambulatory [facility] Edis JUNG [facility] Start: 06-07-2023 End: 06-07-2023 Patient encounter procedure Lakeisha Jung PRODUCTION HARDENER-EMERGENCY MEDICAL SERVICE MANAGER Work Phone: [facility] General Surgery Comment on above: Status post laparosc opic cholecystectomy (Primary Dx); Status post umbilical hernia repair, follow-up exam Start: 05-31-2023 Orders Only Not In System Ref Prov [facility] General Surgery Start: 05-25-2023 End: 05-25-2023 Departed Referred DO Jaciel Echavarria Work Phone: [facility] [place] [facility] Start: 05-25-2023 End: 05-25-2023 ambulatory Jaciel Echavarria [facility] Work Phone: Start: 06-06-2022 End: 06-07-2022 ambulatory REVA SHANNON Facility:[facility] Start: 05-18-2022 End: 05-19-2022 ambulatory REVA SHANNON Facility:[facility] Start: 11-18-2021 End: 11-19-2021 ambulatory REVA SHANNON Facility:[facility] Start: 05-07-2020 End: 05-07-2020 Patient encounter procedure Wendy Flood Work Phone: [facility] Work Phone: Procedures Date Procedure Procedure Detail Performing Clinician Start: 02-21-2025 IOL BIOMETRY W/ IOL CALC OU (BOTH EYES) Desiree Rooney MD Work Phone: Start: 04-26-2024 ASCAN ONLY - DIAGNOSTIC OU (BOTH EYES) Desiree Rooney MD Work Phone: Start: 01-17-2024 Repair of umbilical hernia Jaciel HENRY Start: 08-09-2023 Colonoscopy Jaciel ELAINE Start: 05-27-2023 MULTIPLE LABS Not In System Ref Prov Start: 05-25-2023 Level i surg pathology gross examination only Not In System Ref Prov Start: 05-18-2022 PSA screening REVA SHANNON Comment on above: Performed By: #### [facility] #### [facility] [address] [place] [address] Dr. Karely Perkins Start: 05-07-2020 Imm. administration COVID19 Moderna dose 1 Wendy Remigio Work Phone: Start: 05-07-2020 SARS-CoV-2 vaccine, 0.5ml Moderna [employer] Work Phone: Start: 09-23-2015 Colonoscopy Jaciel LLOYDJeffry Start: 09-23-2015 Esophagogastroduodenoscopy Jaciel LLOYDJeffry Excision of basal cell carcinoma Jaciel LLOYDJeffry Comment on above: back Excision of squamous cell carcinoma Jaciel HENRY Comment on above: left shoulder History of cholecystectomy Statu s post laparoscopic cholecystectomy Jaciel Echavarria DO Work Phone: History of cholecystectomy Statu s post laparoscopic cholecystectomy Jaciel Echavarria DO Work Phone: History of cholecystectomy Statu s post laparoscopic cholecystectomy Lakeisha Jung PRODUCTION HARDENER-EMERGENCY MEDICAL SERVICE MANAGER Work Phone: Repair of umbilical hernia Jesusita loera ELAINE Tonsillectomy Jaciel HENRY Plan of Treatment Date Care Activity Detail Author Start: 07-19-2026 Diabetes Screening Diabetes Screening [facility] Start: 04-02-2025 End: 09-24-2025 ASCAN ONLY - DIAGNOSTIC OU (BOTH EYES) ASCAN ONLY - DIAGNOSTIC OU (BOTH EYES) [facility] Imaging Routine Combined forms of age-related cataract of right eye Combined 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 Expected: 04/02/2025, Expires: 09/24/2025 [facility] Comment on above: Expected: 04/02/2025, Expires: Start: 04-02-2025 End: 09-24-2025 IOL BIOMETRY W/ IOL CALC OU (BOTH EYES) IOL BIOMETRY W/ IOL CALC OU (BOTH EYES) [facility] Imaging Routine Combined forms of age-related cataract of right eye Combined 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 Expected: 04/02/2025, Expires: 09/24/2025 [facility] Comment on above: Expected: 04/02/2025, Expires: Start: 07-19-2024 Adult BMI Screening Adult BMI Screening [facility] Start: 07-19-2024 Tobacco Screening Tobacco Screening [facility] Start: 06-06-2024 Adult BMI Screening Adult BMI Screening [facility] Start: 06-06-2024 Tobacco Screening Tobacco Screening [facility] Start: 05-23-2024 End: 05-23-2024 Patient encounter procedure 05/23/2024 8:15 AM EDT Office Visit [facility] [address] [facility] [place] [address] Desiree Rooney MD [address] [place] [address] Pseudophakia (Primary Dx); Combined 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 Ophthalmology Comment on above: Pseudophakia (Primary Dx); Combined 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 Start: 05-22-2024 End: 05-22-2024 Oph bmtry prtl coher intrfrmtry io lens pwr geovanna OPHTHALMIC BIOMETRY BY PARTIAL COHERENCE INTERFEROMETRY W/INTRAOCULAR LENS POWER CALCULATION Combined 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 05/22/2024 11:21 AM EDT [facility] Start: 05-22-2024 End: 05-22-2024 Xcapsl [...] Vaccine ( season) Covid-19 Vaccine ( season) [facility] Start: 05-01-2024 End: 05-01-2024 Admission to [...] AM EST Office Visit OPHT Ophthalmology [address] [facility] [place] [address] CATARACT SURGERY RIGHT THEN LEFT CUTCHOGUE Ophthalmology Comment on above: CATARACT SURGERY RIGHT THEN LEFT TAO Start: 04-26-2024 End: 04-26-2024 Admission to same day surgery center 04/26/2024 10:20 AM EST PAT Pre Anesthesia [address] [place] [address] 1, Pacc [place] [address] [place] [address] CATARACT SURGERY RIGHT THEN LEFT TAO Pre Anesthesia Comment on above: CATARACT SURGERY RIGHT THEN LEFT TAO Start: 04-10-2024 End: 04-10-2024 Patient encounter procedure 04/10/2024 3:45 PM EST Office [place] [address] CATARACT SURGERY RIGHT THEN LEFT TAO [employer] [facility] Comment on above: CATARACT SURGERY RIGHT THEN LEFT TAO Start: 03-06-2024 Advance Directive Discussion Advance Directive Discussion [facility] Start: 11-05-2023 Influenza vaccination Influenza Vaccine [facility] Start: 07-20-2023 Subsequent hospital visit by physician 07/20/2023 6:30 AM EDT Hospital Encounter [facility] [address] [place] [address] Jaciel Echavarria, DO [address] [place] [address] [id number] [facility] Start: 07-19-2023 End: 07-18-2024 NM Liver and Biliary ducts and Gallbladder Views NM hepatobiliary system imaging without pharmacologic agent Imaging STAT Abnormal CT of the abdomen Status post laparoscopic cholecystectomy Expected: 07/19/2023, Expires: 07/18/2024 [employer] Work Phone: Comment on above: Expected: 07/19/2023, Expires: Start: 07-18-2023 End: 07-17-2024 NM Liver and Biliary ducts and Gallbladder Views NM hepatobiliary system imaging without pharmacologic agent Imaging Routine Abnormal CT of the abdomen Expected: 07/18/2023, Expires: 07/17/2024 [employer] Work Phone: Comment on above: Expected: 07/18/2023, Expires: Start: 07-18-2023 End: 07-17-2024 RF Guidance for percutaneous replacement of drainage catheter of Biliary ducts and Gallbladder IR biliary drainage catheter internal-external Imaging Routine Abnormal CT of the abdomen Status post laparoscopic cholecystectomy Expected: 07/18/2023, Expires: 07/17/2024 [employer] Work Phone: Comment on above: Expected: 07/18/2023, Expires: Start: 06-04-2020 2nd Dose- COVID Vaccine [facility] Work Phone: Start: 08-23-2011 Fall Risk Screening Fall Risk Screening [facility] Start: 1996 Administration of varicella zoster vaccine Zoster (Shingles) Vaccine (1 of 2) [facility] Start: 1996 Shingrix Vaccine (1 of 2) Shingrix Vaccine (1 of 2) [facility] Start: 08-23-1991 Diabetes Screening Diabetes Screening [facility] Start: 1965 DTaP,Tdap and Td Vaccines (1 - Tdap) DTaP,Tdap and Td Vaccines (1 - Tdap) [facility] Start: 1965 Urine microalbumin profile DTaP,Tdap,Td Vaccine (1 - Tdap) [facility] Start: 1964 Adult BMI Follow Up Plan Adult BMI Follow Up Plan [facility] Start: 1964 Anxiety Screening Anxiety Screening [facility] Start: 1964 Depression Screening Depression Screening [facility] Start: 1964 Hepatitis C screening Hepatitis C Screening [facility] Start: 1958 Depression Screening Depression Screening [facility] Start: 1946 Medicare Annual Wellness Visit Medicare Annual Wellness Visit [facility] End: 07-17-2024 Comprehensive metabolic 2000 panel - Serum or Plasma Comprehensive metabolic panel Lab Routine Abnormal CT of the abdomen 1 Occurrences starting 07/18/2023 until 07/17/2024 [facility] Comment on above: 1 Occurrences starting 07/18/2023 until 07/17/2024 End: 09-11-2025 CORNEAL TOPOGRAPHY PENTACAM OU (BOTH EYES) CORNEAL TOPOGRAPHY PENTACAM OU (BOTH EYES) [facility] Imaging Routine Combined 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 Combined forms of age-related cataract of right eye 1 Occurrences starting 03/20/2024 until 09/11/2025 [facility] Comment on above: 1 Occurrences starting 03/20/2024 until 09/11/2025 MR Unspecified body region F [facility] MRA Head vessels WO contrast [facility] End: 09-11-2025 OCT MACULA CIRRUS OU (BOTH EYES) OCT MACULA CIRRUS OU (BOTH EYES) [facility] Imaging Routine Combined 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 Combined forms of age-related cataract of right eye 1 Occurrences starting 03/20/2024 until 09/11/2025 [facility] Work Phone: Comment on above: 1 Occurrences starting 03/20/2024 until 09/11/2025 Immunizations Immunization Date Immunization Notes Care Provider Fa cili 11-23-2022 influenza virus vaccine, unspecified formulation Lakeisha Jung PRODUCTION 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 No signs or symptoms of adverse reactions. Patient waited a minimum of 15 minutes. Payers Date Payer Category Payer Self-pay 2022 Medicare [id number] 2022 Medicare (Managed Care) HEVER العراقي [id number] 2011 Unknown 1 - Medicare [facility] [id number]. [id number] 1959 Medicare [id number] 1959 Medicare [id number] 1959 Unknown [id number] 2.16.840.1.199368.3.140.1. 78222.5.10.6.3 1946 Unknown [id number] 2.840.1.223013.3.579.2. 593 1946 Unknown [id number] 2.16.840.1.806218.3.579.2. 593 1946 Unknown [id number] 2.16.840.1.096443.3.579.2. 593 1946 Unknown [id number] 2.16.840.1.287311.3.579.2. 1286 1946 Unknown [id number] 2.16840.1.364754.3.579.2. 128 1946 Unknown [id number] 2.16.840.1.494993.3.579.2. 1286 1946 Unknown [id number] 2.840.1.426116.3.579.2. 128 1946 Unknown [id number] 2.16.840.1.003011.3.579.2. 1285 1946 Unknown [id number] 2.840.1.150616.3.579.2. 128 1946 Unknown [id number] 2.840.1.866572.3.579.2. 1285 1946 Unknown [id number] 2.840.1.535103.3.579.2. 72 1946 Unknown [id number] 2.840.1.108863.3.579.2. 1946 Unknown [id number] 2.840.1.492137.3.579.2. 1946 Unknown [id number] 2.840.1.068779.3.579.2. 72 1946 Unknown [id number] 2.840.1.227704.3.579.2. 72 1946 Unknown [id number] 2.840.1.814785.3.579.2. 72 Medicare Medicare Outpatient [id number] Unknown [facility] Health Claims [id number] Unknown [id number] 2.840.1.998694.3.579.2. 531 Unknown [id number] 2.840.1.343599.3.579.2. 531 Unknown [id number] 2.840.1.574697.3.579.2. 531 Social History Date Type Detail Facility Tobacco smoking status Unknown if ever sm oked [facility] Start: 1945 Sex Assigned At Male [facility] Start: 07-11-2023 End: 04-02-2024 Tobacco smoking status Ex-smoker (finding) [facility] [place] Tobacco smoking status Never Issac Snyder [facility] [place] Start: 04-02-2024 End: 04-26-2024 Sex Assigned At Male Andreas Lauren [facility] Start: 01-18-2024 Sex Male (finding) [facility] Start: [birth year]-06-1958 End: 03-06-1983 History of tobacco use Current smoker [facility] Start: 03-06-1957 End: 03-06-1983 History of tobacco use Cigarette Smoker [facility] Start: 04-02-2024 End: 04-26-2024 Cigarettes smoked current (pack per day) - Reported 0.5 [facility] Start: 06-07-2023 End: 04-02-2024 Tobacco use and exposure Smokeless tobacco non-user [facility] Start: 04-02-2024 End: 05-23-2024 Alcoholic beverage intake Current drinker of alcohol (finding) [facility] Start: 1945 Sex assigned at Not on file [facility] Start: 04-26-2024 Alcohol Comment weekly [facility] Start: 09-03-2024 Tobacco smoking stat [facility] Never smoked tobacco (finding) [facility] Medical Equipment Procedure Code Equipment Code Equipment Origin al Text Equipment Identifier Dates [id number] Clarisa on [facility] - [id number] Start: 05-01-2024 [id number] Clarisa on [facility] - [id number] Start: 05-22-2024 Functional Status Date Assessment Result Facility 02-06-2024 Functional Status N/A [facility] [place] 01-24-2024 Functional Status N/A [facility] [place] 01-10-2024 Functional Status N/A [facility] [place] 11-21-2023 Functional Status N/A [facility] [place] 07-11-2023 Functional Status N/A [facility] [place] Clinical Notes 06-07-2023 to 09-03-2024 Note Date [...] nerve palsy September 03, 2024 12: 33pm [facility] Work Phone: 1(531) 882-635207-01-2025 Evaluation note* Diagnosis Onset Date Resolution Status Admit Date Diplopia acute September 03, 2024 12:33pm Lateral rectus palsy acute September 03, 2024 12:33pm Trochlear nerve palsy noneactive Sep 12:33pm [facility] Work Phone: 1(665) 290-239803-20-2025 NoteHNO ID: [id number] Author: DESIREE ROONEY MD Service: ? Author Type: Physician Type: Progress Notes Filed: 05/23/2024 09:00 Note Text: ASSESSMENT/PLAN: 1. Pseudophakia - ICD9: V43.1, ICD10: Z96.1 (primary diagnosis) - 1 day PO S/P PC IOL Left eye (05/22/2024) Aim: Lemitar doing well; He is happy with the improvement in his vision. - S/P PC IOL Right eye (05/01/2024) Aim: Lemitar The patient was instructed to.... - Use [...] all of its relevant components. Desiree Rooney, [facility]03-20-2025 History of Present illness Narrative* Desiree Rooney MD - 05/23/2024 8:36 AM EDT ASSESSMENT/PLAN: 1. Pseudophakia - ICD9: V43.1, ICD10: Z96.1 (primary diagnosis) - 1 day PO S/P PC IOL Left eye (05/22/2024) Aim: Lemitar doing well; He is happy with the improvement in his vision. - S/P PC IOL Right eye (05/01/2024) Aim: Lemitar The patient was instructed to.... - Use [...] after surgery to alleviateany dry eye symptoms. May trial OTC readers [...] components. Desiree Rooney MD documented in [facility] encounter[facility]03-[facility]-2025 NoteHNO ID: [id number] Author: NANETTE SANTA OD Service: ? Author Type: MELT ROOM OPERATOR Type: Progress Notes Filed: 05/22/2024 10:22 Note [...] p Cataract surgery May 22, 2024 10:20 [facility]03-19-2025 History of Present illness Narrative* Nanette [...] 22, 2024 10:20 AM documented in this encounterOhio Valley Hospital02-21-2025 NoteDate of Procedure 04/26/2024. Metal [employer] Viewer Information Spinner Box: ARNEL. Notes Measurements only - see Procedure Record under Scanned Documents for signed results.[id number] NoteDate of Procedure 04/26/2024. Metal [employer] Viewer Information Spinner Box: ARNEL.[id number] NoteHNO ID: [id number] Author: KELLIE ALCARAZ COA Service: ? Author Type: Metal Products Viewer Type: Progress Notes Filed: 04/26/2024 11:17 Note Text: Confirmed with patient PLANO Both eyes Drop instructions given Co-manage with Roshan Gray, paper signed AUBRIE Chen [facility] 26[facility] History of Present illness Narrative* Kellie Alcaraz COA - 04/26/2024 11:04 AM EST Confirmed with patient PLANO Both eyes Drop instructions given Co-manage with Roshan Gray, paper signed AUBRIE Chen April 26, 2024 documented in this encounterOhio Valley Hospital02-21-2025 History and physical note * Tyler Beltran APRN.WENDY - 04/26/2024 10:20 AM EST Images from the original note were not included. [facility] HISTORY AND PHYSICAL EXAMINATION SERVICE DATE: 04/26/2024 SERVICE TIME: 10:02 AM PRIMARY CARE PHYSICIAN: Reva Shannon CNP, EMERGENCY MEDICAL SERVICE MANAGER REASON FOR VISIT: Abigail Washington is a [...] have a large neck STOP-Bang Score: 2 [id number] Score: Age: >=75 Sex: male CHF history: No Hypertension history: No Stroke/TIA/thromboembolism history: No Vascular disease history: No Diabetes history: No [id number]-FURw Score: 2 ARISCAT Score: Age: 51-80 Preoperative [...] fevers. Neuro: No history of TIA's, stroke, PACKAGING CLERK tumor, impaired sensorium, hemiplegia, paraplegia or quadraplegia. No neurological symptoms or problems. Respiratory: No history of current cough or dyspnea, or pneumonia in the past 6 weeks. No history of respiratory/pulmonary symptoms or problems. Cardiovascular: No history of HTN requiring medication, no history of angina, CHF, IA, cardiac surgery or stents. Denies rest pain, [...] Imm Admin: COVID-19 vaccine, age 12+ yr ([employer]-BIONTECH COMIRNATY) 12/14/2021 Imm Admin: COVID-19 vaccine, age 12+ yr, bivalent (MODERNA) 06/29/2021 Imm Admin: COVID-19 original vaccine, age 12+ yr, monovalent ([employer]- BIONTECH - PURPLE TOP) 01/06/2021 Imm Admin: [...] Abigail Washington DATE: 04/26/2024 TIME: 12:50 PM [facility]02-21-2025 History and physical note* Tyler Beltran APRN.CNP [...] have a large neck STOP-Bang Score: 2 [id number] Score: Age: >=75 Sex: male CHF history: No Hypertension history: No Stroke/TIA/thromboembolism history: No Vascular disease history: No Diabetes history: No [id number]-JGEz Score: 2 ARISCAT Score: Age: 51-80 Preoperative [...] fevers. Neuro: No history of TIA's, stroke, PACKAGING CLERK tumor, impaired sensorium, hemiplegia, paraplegia or quadraplegia. No neurological symptoms or problems. Respiratory: No history of current cough or dyspnea, or pneumonia in the past 6 weeks. No history of respiratory/pulmonary symptoms or problems. Cardiovascular: No history of HTN requiring medication, no history of angina, CHF, IA, cardiac surgery or stents. Denies rest pain, [...] Imm Admin: COVID-19 vaccine, age 12+ yr ([employer] COMIRNATY) 12/14/2021 Imm Admin: COVID-19 vaccine, age 12+ yr, bivalent (MODERNA) 06/29/2021 Imm Admin: COVID-19 original vaccine, age 12+ yr, monovalent ([employer] - PURPLE TOP) 01/06/2021 Imm Admin: COVID-19 [...] 04/26/2024 TIME: 12:50 PM documented in this encounterOhio Valley Hospital02-21-2025 Instructions* Patient Instructions* Tyler Beltran APRN.CNP - 04/26/2024 10:02 AM EST Images from the original note were not included. [facility] PATIENT PREOPERATIVE INSTRUCTIONS Desiree Rooney MD has scheduled you for your procedure at this surgery center: [facility]: [phone] --[address] [facility] [place] [address]. Please read below carefully for your personalized [...] office. If you are currently using a wwmk-mma-funi injectable or oral medication for diabetes or [...] Procedures: - YOU MUST HAVE A RESPONSIBLE INSOLE CEMENTER TAKE YOU HOME. A PROMOTIONS PRODUCER OR STUDIO POTTER CANNOT BE MADE A RESPONSIBLE INSOLE CEMENTER. - We recommend that a responsible person stays with you overnight to take care of you. - You cannot stay in a hotel alone after outpatient surgery. You will not be permitted to have yoursurgery, if you do not have someone to take care of you. If you already have an Advance Directive, please fax a copy to [phone] or email to for it to be [...] into your chart that day. Tyler Beltran APRN.CNP documented in this encounterOhio Valley Hospital01-28-2025 NoteHNO ID: [id number] Author: DESIREE ROONEY MD Service: ? Author [...] kind referral! Allergies: see list - Aim: Lemitar OU. Patient understands the need for glasses [...] work and now enjoys living [facility] the [facility]; offered cataract Surgery OD/OS soon. Copy of today's visit note was sent to Dr. Gray. Return for PAT, ultrasound, Intraocular lens calculations, and surgery. Desiree Rooney MD The documentation for this note was completed by Neda Yoo, AUBRIE acting as a scribe for, and in [...] of its relevant components. Desiree Rooney MD 04/02/24[facility]01-28-[facility] History of Present illness Narrative* Desiree Rooney [...] kind referral! Allergies: see list - Aim: Lemitar OU. Patient understands the need for glasses [...] work and now enjoys living [place] the [facility] [place] [facility]; offered cataract Surgery OD/OS soon. Copy of today's visit note was sent to Dr. Gray. Return for PAT, ultrasound, Intraocular lens calculations, and surgery. Desiree Rooney MD The documentation for this note was completed by Neda Yoo, COA acting as a scribe for, and inthe [...] Desiree Rooney MD 04/02/24 documented in this encounterOhio Valley Hospital11-20-2024 Hospital Discharge instructions Follow Up Care 01/24/2024 14:55:08 With:ELAINE FRANCISCO, CASE Bautista Address: [address] [place] [phone]- When: only if needed [facility] [place] [id number] NoteGeneral Surgery Office/Clinic Note Chief Complaint consultation [...] biloma was present; area reportedly aspirated at [facility]; will obtain records; just noticed bulges recently, [...] (09/23/2015), Cholecystectomy, Excision o (more content not included)...[facility]Result Comment: Electronically Signed By: ELAINE FRANCISCO, Jaciel Hall\Date and Time Signed: 01/10/24 16:25 [id number] Evaluation + Plan note Diagnostic Tests Pending * Hepatic Function Panel 01/10/24 * Basic Metabolic Panel 01/10/24 * CBC w/ Auto Diff 01/10/24 [facility] [place] 09-17-2024 NoteGeneral Surgery Office/Clinic Note Chief Complaint [...] required percutaneous drainage, which was done in [place]; no pain or skin changes, no N/V [...] 2: Mother and Bro (more content not included)...[facility]:Result Comment: Electronically Signed By: ELAINE FRANCISCO, Jaciel Keen.br\Date and Time Signed: 11/21/23 17:00 [id number] Miscellaneous Notes* Telephone Encounter - Christie Alcala [...] wants Dr Kowalski to know how awesome levi do on his gallbladder surgery. * Telephone [...] with no further questions. [facility] Telephone encounter Note* Telephone Encounter - Christie [...] awesome hedid do on his gallbladder surgery. [facility]05-20-2024 Telephone encounter Note* Telephone Encounter - Ronda [...] up with me p.r.n.. Thanks, Dr. Kowalski [facility]05-20-2024 Telephone encounter Note* Telephone Encounter - Ronda Plunkett CMA - 07/24/2023 3:00 PM EDT Spoke with patient regarding Dr. Echavarria's message. Patient verbally understood with no further questions. [facility]05-20-2024 Miscellaneous Notes* Telephone Encounter - Christie Alcala CMA - 07/24/2023 2:10 PM EDT Cora says that she called the patient to schedule HIDA but, he told her that he already had thatdone, at [facility]. I spoke to my co-worker & she reports that he decided to change where he wanted it done. Without letting us know. documented in this encounterK[facility] Telephone encounter Note* Telephone Encounter - Christie Alcala CMA - 07/24/2023 2:10 PM EDT Cora says that she called the patient to schedule HIDA but, he told her that he already had thatdone, at [facility]. I spoke to my co-worker & she reports that he decided to change where he wanted it done. Without letting us know. [facility]05-13-2024 Miscellaneous Notes* Telephone Encounter - Ronda Plunkett CMA - 07/17/2023 3:25 PM EDT Received a call from patient stating Reva Shannon CNP ordered a CT for patient. Dr. Echavarria performed a robotic cholecystectomy at [facility] on 05/24/23. Was informed that the CT showed some fluid. Patient stated Reva Shannon CNP is going to forward patient's CT results. Once we receive them I will inform Dr. Echavarria. documented in this encounterK[facility]05-[facility]-2024 Telephone encounter Note* Telephone Encounter - Ronda Plunkett CMA - 07/17/2023 3:25 PM EDT Received a call from patient stating Reva Shannon CNP ordered a CT for patient. Dr. Echavarria performed a robotic cholecystectomy at [facility] on 05/24/23. Was informed that the CT showed some fluid. Patient stated Reva Shannon CNP is going to forward patient's CT results. Once we receive them I will inform Dr. Echavarria. [facility] [employer] [id number] History of Present illness Narrative* Lakeisha Jung APRN-WENDY - 06/07/2023 11:30 AM EDT Images from [...] Status post laparoscopic cholecystectomy [Z90.49] JEVON SINGH [facility] Physicians General Surgery [place] This note was created with the assistance of a speech recognition program. While intending to generate a timely document that accurately reflects the content of the visit, no guarantee can be provided that every grammatical or spelling mistake has been or will be identified or corrected. Thank you for your understanding. JEVON Singh 06/07/23 1150 documented in this encounterK[facility] TroyChief complaint+Reason for visit Narrative* Chief Complaint Admit Date REFERRAL DR DAVY GRAY/4TH NERVE PA LSY September 03, 2024 12:33pm [facility] Work Phone: evaluation + Plan note No data available for this section [facility] evaluation + Plan note Future Appointments Appointment Date:10/18/2023 08:15:00 AM Scheduled Provider:Renate Brock MD Location:[facility] Appointment Type:URO New Patient [facility] Evaluation + Plan note Future Appointments Appointment Date:02/06/2024 08:40:00 AM Scheduled Provider:Jaciel HENRY MD Location:[facility] Appointment Type:GS Post Op 15 [facility] evaluation noteNo assessment information available [facility] Work Phone: evaluation note* Diagnosis Combined [...] of senile cataract documented in this encounter [facility] note* Diagnosis Abnormal CT of the abdomen- Primary Nonspecific (abnormal) findings on radiological and other examination of abdominal area, including retroperitoneum Status post laparoscopic cholecystectomy Other postprocedural status [facility] Diagnosis Abnormal CT of the abdomen- Primary Nonspecific (abnormal) findings on radiological and other examination of abdominal area, including retroperitoneum [facility] Diagnosis Abnormal CT of the abdomen- Primary Nonspecific (abnormal) findings on radiological and other examination of abdominal area, including retroperitoneum Status post laparoscopic cholecystectomy Other postprocedural status [facility] Diagnosis Status post laparoscopic cholecystectomy- Primary Other postprocedural status Status post umbilical hernia repair, follow-up exam Follow-up examination, following other surgery [facility] Diagnosis Pre-op evaluation- Primary Preoperative examination, [...] Follows with PCP documented in this encounter [facility] note* Diagnosis Combined forms of age-related cataract [...] of senile cataract documented in this encounter [facility] note* Diagnosis Pre-op evaluation- Primary Preoperative examination, [...] of senile cataract documented in this encounter [facility] note* Diagnosis Pre-op evaluation- Primary Preoperative examination, unspecified Hyperlipidemia, unspecified hyperlipidemia type Gastroesophageal reflux disease without esophagitis Esophageal reflux Pseudophakia of both eyes- Primary Lens replaced by other means 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, fourth or trochlear nerve palsy documented in this encounter [facility] Discharge instructions No data available for this section [facility] InstructionsNot on filedocumented in this encounter [facility]ructionsNot on filedocumented in this encounter [facility] SystemInstructionsNot on filedocumented in this encounter [facility] SystemInstructionsNot on filedocumented in this encounter [facility] SystemInstructionsNot on filedocumented in this encounter [facility] SystemProgress note No data available for this section [facility] [place] Reason for referral (narrative)No reason for referral [facility] Work Phone: Reason for Referral Specialty Diagnoses / Procedures Referred By Mercedes stroud Referred To Contact Radiology Diagnoses Abnormal CT of the abdomen Status post laparoscopic cholecystectomy Procedures IR biliary drainage catheter internal-external Jaciel Echavarria, DO [address] [place] [address] Referral ID Status Reason Start Date Expiration Date V isits Requested Visits Authorized [id number] Pending Review 07/18/2023 07/17/2024 1 1 Specialty Diagnoses / Procedures Referred By Contac t Referred To Contact Radiology Diagnoses Abnormal CT of the abdomen Procedures NM hepatobiliary system imaging without pharmacologic agent Jaciel Echavarria, DO [address] [place] [address] Referral ID Status Reason Start Date Expiration Date V isits Requested Visits Authorized [id number] Pending Review 07/18/2023 07/17/2024 5 5 Specialty Diagnoses / Procedures Referred By Contac t Referred To Contact Radiology Diagnoses Abnormal CT of the abdomen Status post laparoscopic cholecystectomy Procedures NM hepatobiliary system imaging without pharmacologic agent Jaciel Echavarria, DO [address] [place] [address] [facility] [address] [place] [address] Phone: [phone] Referral ID Status Reason Start Date Expiration Date V isits Requested Visits Authorized [id number] Authorized 07/19/2023 07/18/2024 5 5 Assessments Findings Encounter Date Encounter for Immunization 1st COVID Vaccine susan Flood EMERGENCY MEDICAL SERVICE MANAGER 05/07/2020 Instructions Instructions not supported for this document type No Instructions Recorded History of Present Illness History of Present Illness not supported for this document type No History of Present Illness Recorded Family History No Family History Records Found Relationship Condition Age at Onset Recorded Date/T [...] and content) DATE CREATED AUTHOR 06/11/2022 [facility] DATE CREATED AUTHOR AUTHOR'S ORGANIZ ATION 07/22/2023 [facility] DATE CREATED AUTHOR AUTHOR'S ORGANIZ ATION 08/06/2023 [facility] DATE CREATED AUTHOR AUTHOR'S ORGANIZ ATION 01/19/2024 [facility] DATE CREATED AUTHOR AUTHOR'S ORGANIZ ATION 07/12/2024 [facility] DATE CREATED AUTHOR AUTHOR'S ORGANIZ ATION 10/26/2024 [facility] Care Teams (unrecognized sec tion and content) [...] January 17, 2024 End: January 17, 2024 Edge Grinder Relationship Specialty Start Date End Date Reva Shannon APRN-CNP [facility] [facility] [place] [address] PCP - General Family Medicine 06/01/23 Edge Grinder Relationship Specialty Start Date End Date Reva Shannon APRN-CNP [address] [facility] [place] [address] PCP - General Family Medicine 06/01/23 Edge Grinder Relationship Specialty Start Date End Date Reva Shannon APRN-CNP [address] [place] [address] PCP - General Family Medicine 06/01/23 Edge Grinder Relationship Specialty Start Date End Date Reva Shannon APRN-CNP [address] [place] [address] PCP - General Family Medicine 06/01/23 Edge Grinder Relationship Specialty Start Date End Date Reva Shannon APRN-CNP [address] [place] [address] PCP - General Family Medicine 06/01/23 Edge Grinder Relationship Specialty Start Date End Date Reva Shannon APRN-CNP [address] [place] [address] PCP - General Family Medicine 06/01/23 Edge Grinder Relationship Specialty Start Date End Date Reva Shannon CNP [address] [place] [address] PCP - General Internal Medicine 04/10/24 Edge Grinder Relationship Specialty Start Date End Date Reva Shannon CNP [address] [place] [address] PCP - General Internal Medicine 04/10/24 Edge Grinder Relationship Specialty Start Date End Date Reva Shannon CNP [address] [place] [address] PCP - General Internal Medicine 04/10/24 Edge Grinder Relationship Specialty Start Date End Date Reva Shannon CNP [address] [place] [address] PCP - General Internal Medicine 04/10/24 Team Status: Active Member Role Status Dates YASSINE Ribeiro Primary Care Provider Active Team Status: Inactive Member Role Status Dates Rpual Velazquez DO Attending Provider Active Sta rt: [...] or prosecute any alcohol or drug abuse patient.[facility] HospitalIn the event this information is protected by the Federal Confidentiality of Alcohol and Drug Abuse Patient Records regulations: The Federal rules restrict any use of the information to criminally investigate or prosecute any alcohol or drug abuse patient.[facility] HospitalIn the event this information is protected by the Federal Confidentiality of Alcohol and Drug Abuse Patient Records regulations: The Federal rules restrict any use of the information to criminally investigate or prosecute any alcohol or drug abuse patient.[facility] HospitalIn the event this information is protected by the Federal Confidentiality of Alcohol and Drug Abuse Patient Records regulations: The Federal rules restrict any use of the information to criminally investigate or prosecute any alcohol or drug abuse patient.[facility] HospitalIn the event this information is protected by the Federal Confidentiality of Alcohol and Drug Abuse Patient Records regulations: The Federal rules restrict any use of the information to criminally investigate or prosecute any alcohol or drug abuse patient.[facility] Reason for Visit (unrecogniz ed section and content) Reason Comments Cataract Evaluation Reason Comments Post-op Post op davinci chol ecystectomy and umbilical hernia repair performed 05/24/23 at [facility] Reason Comments Pre-Op Visit Reason Comments Pre-Op Exam Reason Comments Post-Op Visit Specialty Diagnoses / Procedures Referred By Mercedes stroud Referred To Contact [facility] Diagnoses Combined 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 Combined 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 [H25.812] Procedures XCAPSL CTRC RMVL INSJ IO LENS PROSTH W/O ECP OPH BMTRY PRTL COHER INTRFRMTRY IO LENS PWR GEOVANNA PHACOEMULSIFICATION CATARACT IMPLANT INTRAOCULAR LENS W/O ENDOSCOPIC CYCLOPHOTOCOAGULATION OPHTHALMIC BIOMETRY BY PARTIAL COHERENCE INTERFEROMETRY W/INTRAOCULAR LENS POWER CALCULATION Ambulatory Surgery [address] [place] [address] Phone: tel: Referral ID Status Reason Start Date Expiration Date Visits Re quested Visits Authorized [id number] 1 1 Reason Comments Post-op (Ophthalmology) Both [...] BE BASED ON THE PRIMARY CLINICAL RECORDS. [facility] [employer] [facility]. provides no warranty or guarantee of the accuracy or completeness of information in this document.
--- NOTE | 2024-12-17 08:07 | CT_ITS ---
The [address] [address] Patient Name: ABIGAIL BIRMINGHAM MRN: [id number] date: 1945 Sex: M Assigned Patient Location: LAB Current Patient Location: LAB Accession/Order Number: [id number] Exam Date: 12/17/2024 09:10 Report Date: 12/17/2024 10:25 At the request of: ZACHARY SHANNON Procedure: CT abdomen pelvis w con CT ABDOMEN AND PELVIS WITH CONTRAST COMPARISON: 01/15/2024 CLINICAL DATA: Left-sided hernia Spiral images were obtained through the abdomen and pelvis following oral and 100 mL of Omnipaque 300. This CT exam was performed using one or more following dose reduction techniques: Automated exposure control, adjustment of the mA and/or kV according to patient size, or use of iterative reconstruction technique. Limited cuts through the lung bases show a moderate sized hiatal hernia. There is atelectasis and/or scarring. There is fatty infiltration of the liver. No intrahepatic masses are noted. Prior cholecystectomy is suspected. There are no common duct stones. The spleen, pancreas and adrenal glands show no acute findings. There are symmetric renal nephrograms, without hydronephrosis. Renal cysts are noted. There is mild atherosclerotic plaque involving the aorta and iliac arteries. Retrocrural hypodensity on the right is slightly more prominent. There are no intra-abdominal lymph nodes or ascites. Small bowel loops are normal caliber. Stool is visualized along the colon. Left-sided colonic diverticula are seen. What is thought to be the appendix shows no signs of inflammation. There is a widemouth (approximately 5 cm) supraumbilical ventral hernia containing a knuckle of nondistended small bowel. There is some thickening of lining of the hernia sac. Mild degenerative changes are present at the lumbar spine, greatest at the lower facets. There is also degenerative change at the SI joints. Images through the pelvis show no dilated small bowel. There is mild distal colonic stool. Additional colonic diverticula are noted, without associated active inflammation. The prostate is mildly enlarged and heterogeneous. There is mass effect at the bladder trigone. No other bladder abnormalities are seen. No ascites is visualized. There is minor degenerative change at the hips. CT/CT abdomen pelvis w con IMPRESSION: HIATAL HERNIA. WIDEMOUTH SUPRAUMBILICAL VENTRAL HERNIA CONTAINING A KNUCKLE OF NONDISTENDED SMALL BOWEL, DESCRIBED. FATTY LIVER. RENAL CYSTS. DIVERTICULOSIS. PROSTATE HYPERTROPHY. Impression dictated by: Miladis Moncada M.D. 12/17/2024 10:25 AM Dictation Location: [place] [address] Electronically authenticated by: [id number] Y Date: 12/17/2024 10:25
[2024-12-17 08:11] LABS: Estimated GFR (African America >60 (>=60 mL/min/1.73m^2); Estimated GFR (Non-African Ame >60 (>=60 mL/min/1.73m^2)
== END 2024-12-17 07:55 | disposition home or self-care (01) ==
LOC: LAB 07:54
PROVIDERS: Pathology Anatomic Pathology & Clinical Pathology; PCP Nurse Practitioner Family; Visit Provider Nurse Practitioner Family
DX: K46.9 Unspecified abdominal hernia without obstruction or gangrene (principal); K44.9 Diaphragmatic hernia without obstruction or gangrene; K42.9 Umbilical hernia without obstruction or gangrene; K76.0 Fatty (change of) liver, not elsewhere classified; N28.89 Other specified disorders of kidney and ureter; K57.90 Diverticulosis of intestine, part unspecified, without perforation or abscess without bleeding
CPT/HCPCS: 36415; 74177; 82565; Q9967

== ENCOUNTER 2025-01-14 13:53 | Outpatient (OUT) | payer MEDICARE, SELFPAY ==
--- OUTSIDE RECORDS SUMMARY | 2025-01-13 13:15 | XMS_ITS | Encounter Summary ---
Author Organization [facility] Address [address] [place] [address] Care Team Providers Care Lead Vulcanizing Operator Name Role Phone ErmaReva Dahlia NGUYEN Primary Care Provider + Jeronimo Brandt MD Unavailable [phone] Source Comments In the event this information is protected by the Federal Confidentiality of Alcohol and Drug AbusePatient Records regulations: The Federal rules restrict any use of the information to criminally investigate or prosecute any alcohol or drug abuse patient.[facility] Reason for Visit * ReasonCommentsHerniaNew Encounter Details DateTypeDepartmentCare Team (Latest Contact Info)Dlihonmwlhb66/10/2025 1:15 PM ESTOffice Visit General Surgery [address] [place], [place] [id number] [place] [address] [place], [place] [id number] Incisional hernia, without obstruction or gangrene (Primary Dx) Social History Tobacco UseTypesPacks/DayYears UsedDateSmoking Tobacco: FormerCigarettes0.540.8 Started: 04/02/1984Smokeless Tobacco: Never Tobacco Cessation:Counseling Given: Not Answered Alcohol UseStandard Drinks/WeekCommentsYes1 (1 standard drink = 0.6 oz pure alcohol)weeklyArea Deprivation IndexAnswerDate RecordedNational Score (1-100), lower number is lower ifby020104/26/2024State Score (1-10), lower number is lower ywdz743Data from: https://www.neighborhoodatlas.[facility]/. Last address used for kwogseirrug[address] [address]/26/2024Sex and Gender InformationValueDate RecordedSex Assigned at BirthNot on fileLegal SexMale 01/29/2024 2:25 PM ESTGender IdentityNot on fileSexual OrientationNot on file documented as of this encounter Last Filed Vital Signs Vital SignReadingTime TakenCommentsBlood Yqupsnev484/7101/13/2025 1:13 PM EST Dgsuu646201/13/2025 1:13 PM FOSDjebwvksref39.9 ??C (98.4 ??F)01/13/2025 1:13 PM ESTRespiratory Rate--Oxygen Yrisujjodu02%01/13/2025 1:13 PM ESTInhaled Oxygen Concentration--Weight--Height--Body Mass Index--documented in this encounter Progress Notes * Linh Bowman MD - 01/13/2025 2:11 PM EST Consultation requested by Dr. Reva Ritchie, ASSOCIATE COUNSEL, ASSOCIATE COUNSEL for an opinion regarding recurrent umbilical hernia. My final recommendations will be communicated back to the requesting physician by way of shared medical record or letter via US mail Abigail Washington is a 79-year-old male with a history of two prior hernia repairs presenting for recurrent incisional hernia. Incisional Hernia: - Reports recurrent hernia to the left of the umbilicus, in the same incisional area as prior hernia repair - States hernia recently became bothersome when wearing a belt - First noticed the hernia on the left side not long after last surgery - Describes the hernia as kind of picky a little bit - Reports being able to feel the hernia protruding - Denies being on blood thinners - Denies any heart or lung problems - History of two prior hernia repairs - First hernia repair performed during cholecystectomy - Second hernia repair performed by Dr. Jolley at [facility] in [place], [place], with mesh placement - Regularly lifts his 80-pound Labrador with hip problems into his car Sciatica: - Recently developed sciatica - Describes sciatica as very painful - Expresses concern about undergoing another hernia repair while sciatica is active, fearing it mayexacerbate his pain Blood pressure 156/71, pulse 63, temperature 36.9 ??C (98.4 ??F), SpO2 97%. General: No acute distress. Abd: Small incisional hernia near the umbilicus, approximately 2 centimeters in size, palpable bowel protrusion, reducible defect. A/p: recurrent incisional hernia at site of umbilicus w L side protrusion, fully reducible Aspects of the procedure explained to pt in details including all risks, benefits, and alternatives. He understands the risks of bleeding, infection, mesh infection, chronic pain, hernia recurrence, bowel injury and possibility of other complications related to surgery and/or anesthesia. Aspects of hernia disease discussed with patient. We discussed aspects of hernia incarceration and risk of strangulation. The patient voiced understanding and will seek immediate medical help should these symptoms occur. Patient's questions answered and concerns addressed Pt appreciative of the care Linh Bowman MD I spent 30 minutes in the visit, with more than 50% of the total owjj-ry-ztzq time of the visit in counseling / coordination of care. documented in this encounter Plan of Treatment DateTypeDepartmentCare Team (Latest Contact Info)Xrrwpfypdlr26/12/2025 10:10 AM ESTPAT Pre Anesthesia [address] [place] [address] Virtual, P[facility] [place] [address] [place] [address] 02/06 VITUAL [phone] HERNIORRHAPHY UMBILICAL REDUCIBLE LESS THAN 3cm [05171] - Yzoloos2202/06/2025 7:30 AM ESTHospital Encounter [facility] [address] [place] [address] [place] [address] [place], [place] [id number] Umbilical hernia without obstruction and without gangrene [K42.9]02/06/2025 7:30 AM EST - 02/06/2025 9:00 AM ESTSurgery [facility] [address] [place] [address] [place] [address] [place], [place] [id number] HERNIORRHAPHY UMBILICAL REDUCIBLE LESS THAN 3cmNamePriorityAssociated Diagnoses Date/TimeHERNIORRHAPHY UMBILICAL REDUCIBLE LESS THAN 3cm Umbilical hernia without obstruction and without gangrene 02/06/2025 7:30 AM ESTdocumented as of this encounter Procedures Procedure NamePriorityDate/TimeAssociated DiagnosisCommentsPT ED DIGESTIVE MLBXDJZ0201/13/2025 documented in this encounter Results * PT ED DIGESTIVE DISEASE (01/13/2025)Specimen (Source)Anatomical Location / LateralityCollection Method / VolumeCollection TimeReceived Time01/13/2025 Narrative PRAVIN - 01/14/2025 Provider KESHA your patient ABIGAIL WASHINGTON started their Pravin on 01-14-2025 and completed it on 01-14-2025 Pravin program: UMBILICAL HERNIA Authorizing ProviderResult TypeResult StatusDicheikh Bowman MDEMMIFinal Result Performing OrganizationAddressCity/State/ZIP CodePhone Number PRAVIN documented in this encounter Visit Diagnoses Diagnosis Incisional hernia, without obstruction or gangrene- Primary Incisional hernia without mention of obstruction or gangrene Umbilical hernia without obstruction and without gangrene documented in this encounter Care Teams Team MemberRelationshipSpecialtyStart DateEnd Date Reva Ritchie CNP [address] [place] [address] PCP - GeneralInternal Medicine04/10/24 Jeronimo Brandt MD [address] [place] [address] ReferringGeneral Cgagsrs03/24/25documented as of this encounter
--- OUTSIDE RECORDS SUMMARY | 2025-01-14 13:59 | XMS_ITS | Clinical Summary ---
Author Organization [facility] Address [address] [place] [address] Care Team Providers Care Customs Compliance Specialist Name Role Phone Reva Ritchie CNP Primary Care Provider + Jeronimo Brandt MD Unavailable Allergies Active AllergyReactionsCriticalityNoted DateCommentsOfloxacinOther: See Comments ,Xqsdzjn4909/30/2024 Medications MedicationSigDispense QuantityRefillsLast FilledStart DateEnd DateStatus simvastatin (ZOCOR) 20 mg tablet Take 20 mg by mouth.4Active naproxen sodium (ANAPROX) 220 mg tablet Take 220 mg by mouth every 4 hours as needed (prn).Active Omeprazole Magnesium (PRILOSEC OTC) 20 mg tablet Take 20 mg by mouth.4Active prednisoLONE acetate (PRED FORTE) 1 % ophthalmic suspension Use one drop in operative eye as directed by Dr. Rooney starting tomorrow. 5Active prednisoLONE acetate (PRED FORTE) 1 % ophthalmic suspension Use one drop in operative eye as directed by Dr. Rooney starting tomorrow.5Active gentamicin (GENTAK) 0.3 % ophthalmic solution One drop in the OPERATIVE EYE only four times a day starting the day before surgery and for three days after 5 mL 5Active omeprazole magnesium (PRILOSEC PO) Take by mouth.Active Active Problems ProblemNoted DateDiagnosed CoslLloxxibiujbz77/19/2025GERD (gastroesophageal reflux disease)04/26/2024 Assessment & Plan (04/26/2024 10:09 AM EST): Assessment: stable on medication Omeprazole(Prilosec) Hhnxdyljhwikbe12/19/2025 Assessment & Plan (04/24/2024 12:44 PM EST): Assessment: stable on medication Follows with PCP Fourth nerve palsy of left eye04/02/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, bilateral 03/29/2024 Resolved Problems ProblemNoted DateDiagnosed DateResolved DateCombined forms of age-related cataract of right eyeombined 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 Encounters DateTypeDepartmentCare DtfoWkrlkocngpj94/10/2025 1:15 PM ESTOffice Visit General Surgery SURJA LLOYD [address] [id number] Linh Bowman MD Incisional hernia, without obstruction or gangrene (Primary Dx)01/13/2025Orders Only General Surgery [address] [address] [address] Linh Bowman MD Umbilical hernia without obstruction and without gangrene (Primary Dx)01/13/2025 Education General [facility] [address] [facility] [address] [id number] [phone] Allie Villar, RN Education Of Patient/wvmzhw1001/06/20254204Stccrw62/17/2025Telephone General Surgery [address] [facility] [address] [address] Linh Bowman MD Referral Informationfrom Last 3 Months Family History Medical HistoryRelationCommentsDiabetesBrotherHeartFatherDiabetesMother HypertensionMotherCancerSisterAmblyopiaNo Family HistoryBlindnessNo Family HistoryCataractNo Family HistoryDetached RetinaNo Family HistoryGlaucomaNo Family HistoryMacular DegenNo Family HistoryStrabismusNo Family HistoryRelation StatusCommentsBrotherFatherMotherSister Social History Tobacco UseTypesPacks/DayYears UsedDateSmoking Tobacco: FormerCigarettes0.540.8 Started: 04/02/1984Smokeless Tobacco: Never Tobacco Cessation:Counseling Given: Not Answered Alcohol UseStandard Drinks/WeekCommentsYes1 (1 standard drink = 0.6 oz pure alcohol)weeklyArea Deprivation IndexAnswerDate RecordedNational Score (1-100), lower number is lower dlwm133004/26/2024State Score (1-10), lower number is lower hyxu24204/26/2024Data from: https://www.neighborhoodatlas.[facility].edu/. Last address used for tpa[address]wm[address] [address]/26/2024Sex and Gender InformationValueDate RecordedSex Assigned at BirthNot on fileLegal SexMale 01/29/2024 2:25 PM ESTGender IdentityNot on fileSexual OrientationNot on file Last Filed Vital Signs Vital SignReadingTime TakenCommentsBlood Fzlxxioa498/7101/13/2025 1:13 PM EST Qkhvq939401/13/2025 1:13 PM IKPCjlupjcuanh07.9 ??C (98.4 ??F)01/13/2025 1:13 PM ESTRespiratory Dyky825605/22/2024 12:00 PM EDTOxygen Nnwmtznugx80%01/13/2025 1:13 PM ESTInhaled Oxygen Concentration--Fbrdbc43 kg (163 lb 2.3 oz)04/26/2024 10:05 AM VGDWmsuga533.2 cm (5' 7 )04/26/2024 10:05 AM ESTBody Mass Index25.55 04/26/2024 10:05 AM EST Plan of Treatment DateTypeDepartmentCare Team (Latest Contact Info)Oudnhylvjvm89/12/2025 10:10 AM ESTPAT Pre Anesthesia [address] [place] [address] Virtual, Pacc [place] [address] [place] [address] 02/06 VITUAL [phone] HERNIORRHAPHY UMBILICAL REDUCIBLE LESS THAN 3cm [27391] - Vxydiiz4502/06/2025 7:30 AM ESTHospital Encounter [facility] Operating Room [address] [place] [address] [place] [address] [facility] [place] [address] Umbilical hernia without obstruction and without gangrene [K42.9]02/06/2025 7:30 AM EST - 02/06/2025 9:00 AM ESTSurgery [facility] [address] [place] [address] [place] [address] [place] [address] HERNIORRHAPHY UMBILICAL REDUCIBLE LESS THAN 3cmNamePriorityAssociated Diagnoses Date/TimeHERNIORRHAPHY UMBILICAL REDUCIBLE LESS THAN 3cm Umbilical hernia without obstruction and without gangrene 02/06/2025 7:30 AM ESTHealth MaintenanceDue DateLast DoneCommentsAnxiety Pzmitxlzc08/19/1965Depression Yrfyjmvql25/19/1965Hepatitis C Ixrvyfdls02/19/1965 DTaP,Tdap,Td Vaccine (1 - Tdap)1965Shingrix Vaccine (1 of 2)1996 Advance Directive Kvqzluavyu02/01/2025Medicare Advantage Annual Wellness Visit 5Covid-19 Vaccine ( season)504/, 11/30/2022, 12/14/2021, Additional history existsDiabetes Cquqmzabr66/ Pneumococcal Vaccine: 50+Vxybxpffm84/14/2020, 10/04/2017RSV VaccineCompleted 11/23/2022Influenza BejdnixPtkfgyyih45/08/2025, 11/07/2023, 11/23/2022, Additional history exists Goals GoalPatient Goal TypeAssociated ProblemsRecent ProgressPatient-Stated?Author Autogenerated Goal Care PlanAutogenerated ProblemNoAsael [employer] ImplantedTypeAreaManufacturerDevice IdentifierShelf Expiration DateModel / Serial / [id number] [facility] [id number] Implanted:Qty: 1 on 05/01/2024 by Leah Rooney MD at [facility] Intraocular LensRight: [employer] SXRFZPOW95/28/[id number].190 / [id number] / [id number] [facility] - [id number] Implanted:Qty: 1 on 05/22/2024 at [facility] SURAJ Armendarizsent[facility] mar[facility]erson hospitalocular LensLeft: [employer] VGITMECQ50/16/6924CQ49II.195 / [id number] / Procedures Procedure NamePriorityDate/TimeAssociated DiagnosisCommentsPT ED DIGESTIVE JCPXYGP7801/13/2025 PT ED PATIENT FUQQFZRALHF65/18/2025 CT OUTSIDE CD DICOM EUEIOF9112/17/2024 from Last 3 Months Results * PT ED DIGESTIVE DISEASE (01/13/2025)Specimen (Source)Anatomical Location / LateralityCollection Method / VolumeCollection TimeReceived Time01/13/2025 Narrative PRAVIN - 01/14/2025 Provider ALAEDEEN your patient ABIGAIL WASHINGTON started their Pravin on 01-14-2025 and completed it on 01-14-2025 Pravin program: UMBILICAL HERNIA Authorizing ProviderResult TypeResult StatusDiya Alaedeen MDEMMIFinal Result Performing OrganizationAddressCity/State/ZIP CodePhone Number PRAVIN * PT ED PATIENT INFORMATION (12/21/2024)Specimen (Source)Anatomical Location / LateralityCollection Method / VolumeCollection TimeReceived Time12/21/2024 Narrative PRAVIN - 01/14/2025 Provider ALAEDEEN your patient ABIGAIL WASHINGTON started their Pravin on 12-22-2024 and completed it on 01-14-2025 Pravin program: PATIENT SAFETY INSTRUCTIONS FOR HEALTHCARE SETTINGS Authorizing ProviderResult TypeResult StatusDiya Alaedeen MDEMMIFinal Result Performing OrganizationAddressCity/State/ZIP CodePhone Number PRAVIN * CT-CT ABDOMEN PELVIS W CON IMPORT (12/17/2024)Anatomical RegionLaterality ModalityOtherSpecimen (Source)Anatomical Location / LateralityCollection Method / VolumeCollection TimeReceived Time12/17/2024 Narrative 12/20/2024 11:33 AM EDT Images were obtained outside of [facility] Procedure Note Provider, [facility] - 12/20/2024 Images were obtained outside of [facility] Authorizing ProviderResult TypeResult StatusCcf ProviderRADIOLOGYFinal Result from Last 3 Months Additional Health Concerns Active ProblemsNoted DateDiagnosed DateAutogenerated Divaced3301/14/2025 Insurance Care Teams Team MemberRelationshipSpecialtyStart DateEnd Date Reva Ritchie CNP [address] [place], [place] [phone] PCP - GeneralInternal Medicine04/10/24 Jeronimo Brandt MD [address] [place] [address] ReferringGeneral Gbfezxe16/24/25
--- OUTSIDE RECORDS SUMMARY | 2025-01-14 13:59 | XMS_ITS | Clinical Summary ---
Author Organization [facility] Address [address] [place] [address] Care Team Providers Care Environmental Health And Safety Manager Name Role Phone Unavailable Primary Care Provider Unavailabl e Social History Tobacco UseTypesPacks/DayYears UsedDateSmoking Tobacco: Never AssessedSex and Gender InformationValueDate RecordedSex Assigned at BirthNot on fileLegal Sex Male05/18/2022 6:50 PM EDTGender IdentityNot on fileSexual OrientationNot on file Plan of Treatment Not on file
--- OUTSIDE RECORDS SUMMARY | 2025-01-14 13:59 | XMS_ITS | Encounter Summary ---
Author Organization [facility] Address [address] [place] [address] Care Team Providers Care Chief Technology Officer Name Role Phone Reva Ritchie Dahlia NGUYEN Primary Care Provider + Jeronimo Brandt MD Unavailable [phone] Source Comments In the event this information is protected by the Federal Confidentiality of Alcohol and Drug AbusePatient Records regulations: The Federal rules restrict any use of the information to criminally investigate or prosecute any alcohol or drug abuse patient.[facility] Encounter Details DateTypeDepartmentCare Team (Latest Contact Info)Gfzewlzlhgq91/10/2025Orders Only General Surgery [address] [place], [place] [id number] [place] [address] [place] [address] Umbilical hernia without obstruction and without gangrene (Primary Dx) Social History Tobacco UseTypesPacks/DayYears UsedDateSmoking Tobacco: FormerCigarettes0.540.8 Started: 04/02/1984Smokeless Tobacco: NeverAlcohol UseStandard Drinks/Week CommentsYes1 (1 standard drink = 0.6 oz pure alcohol)weeklyArea Deprivation IndexAnswerDate RecordedNational Score (1-100), lower number is lower risk78 04/26/2024State Score (1-10), lower number is lower ypbx41504/26/2024Data from: https://www.neighborhoodatlas.medicine.[facility]/. Last address used for ktruzzlcvgr[address] [address]/26/2024Sex and Gender InformationValueDate RecordedSex Assigned at BirthNot on fileLegal DanJbgi54/25/2024 2:25 PM EST Gender IdentityNot on fileSexual OrientationNot on filedocumented as of this encounter Plan of Treatment DateTypeDepartmentCare Team (Latest Contact Info)Pxhboatgeqg56/12/2025 10:10 AM ESTPAT Pre Anesthesia [address] [place] [address] Virtual, Pacc [place] [address] [place] [address] 02/06 VITUAL [phone] HERNIORRHAPHY UMBILICAL REDUCIBLE LESS THAN 3cm [67435] - Oqfgpvm8602/06/2025 7:30 AM ESTHospital Encounter [facility] Operating Room [address] [place] [address] [place] [address] [place] [phone] Umbilical hernia without obstruction and without gangrene [K42.9]02/06/2025 7:30 AM EST - 02/06/2025 9:00 AM ESTSurgery [facility] Operating Room [address] [place], [place] [address] [place] [address] [place] [address] HERNIORRHAPHY UMBILICAL REDUCIBLE LESS THAN 3cmNamePriorityAssociated Diagnoses Date/TimeHERNIORRHAPHY UMBILICAL REDUCIBLE LESS THAN 3cm Umbilical hernia without obstruction and without gangrene 02/06/2025 7:30 AM ESTdocumented as of this encounter Visit Diagnoses Diagnosis Umbilical hernia without obstruction and without gangrene- Primary Umbilical hernia without obstruction and without gangrene documented in this encounter Care Teams Team MemberRelationshipSpecialtyStart DateEnd Date Reva Ritchie CNP [address] [place] [address] PCP - GeneralInternal Medicine04/10/24 Jeronimo Brandt MD [address] [address] ReferringGeneral Gxclnbu90/24/25documented as of this encounter
--- OUTSIDE RECORDS SUMMARY | 2025-01-14 13:59 | XMS_ITS | Encounter Summary ---
Author Organization [facility] Address [address] [place] [address] Care Team Providers Care Process Safety Engineering Technologist Name Role Phone Erma Reva Dahlia NGUYEN Primary Care Provider + Jeronimo Brandt MD Unavailable [phone] Source Comments In the event this information is protected by the Federal Confidentiality of Alcohol and Drug AbusePatient Records regulations: The Federal rules restrict any use of the information to criminally investigate or prosecute any alcohol or drug abuse patient.[facility] Reason for Visit * ReasonCommentsEducation Of Patient/family Encounter Details DateTypeDepartmentCare Team (Latest Contact Info)Bqpxdsfjxho30/10/2025Education General Surgery [address] [place] [address] Allie Villar, RN Education Of Patient/family Social History Tobacco UseTypesPacks/DayYears UsedDateSmoking Tobacco: FormerCigarettes0.540.8 Started: 04/02/1984Smokeless Tobacco: NeverAlcohol UseStandard Drinks/Week CommentsYes1 (1 standard drink = 0.6 oz pure alcohol)weeklyArea Deprivation IndexAnswerDate RecordedNational Score (1-100), lower number is lower risk78 04/26/2024State Score (1-10), lower number is lower fnfo32604/26/2024Data from: https://www.neighborhoodatlas.medicine.[facility]/. Last address used for efpnugonxab[address] [address]/26/2024Sex and Gender InformationValueDate RecordedSex Assigned at BirthNot on fileLegal RsoRuaa98/25/2024 2:25 PM EST Gender IdentityNot on fileSexual OrientationNot on filedocumented as of this encounter Progress Notes * Allie Villar RN - 01/13/2025 1:59 PM EST FMLA/STD needed: No AMBULATORY PATIENT EDUCATION NOTE PRE-OP TEACHING PROCEDURE: open umbilical hernia repair with possible mesh READINESS TO LEARN COGNITIVE ABILITY: Alert and oriented MOTIVATION TO LEARN: Interested FAMILY SUPPORT: High - Very involved in pt care INSTRUCTION PROVIDED TO: Patient and Daughter PATIENT LEARNS BEST BY: Multiple Methods FACTORS AFFECTING LEARNING: None PHYSICAL LIMITATIONS AFFECTING LEARNING: None LEARNING RESPONSE DIAGNOSIS: Incisional hernia, without obstruction or gangrene METHOD OF INSTRUCTION: Individual instruction Written instruction - handouts Verbal instruction PATIENT / FAMILY RESPONSE: Verbalizes understanding of: PAIN MANAGEMENT-Effective strategies to manage pain in addition to pain medication PHYSICAL RESTRICTIONS-Physical restrictions and recommendations after discharge from the hospital POST-OPERATIVE INSTRUCTIONS-Correct actions to take to reduce postoperative complications PRE-OPERATIVE INSTRUCTIONS-Correct action to take to follow pre-operative instructions SYMPTOM MANAGEMENT-Correct actions to take to manage symptoms associated with his/her disease/illness WORSENING CONDITION-Signs and symptoms of a worsening condition that warrant a call to the physician WOUND CARE-Correct procedure to perform wound care DIET- Post op diet OTHER PRE-OP INSTRUCTIONS: FOLLOW-UP PLAN: Complete - No need for follow-up Patient instructed to call with any further issues Contact information given. SUPPLEMENTAL MATERIAL: - Pre Op Instructions Handout - PACC Brochure - Ventral hernia Overview Handout - Post Op Instructions Handout - PRAVIN Video Yes -ACHQC pain control handout given and dicussed REFERRAL (RECOMMENDATION): None Electronically Signed By: Allie Villar RN In Department: GENERAL SURGERY documented in this encounter Plan of Treatment DateTypeDepartmentCare Team (Latest Contact Info)Kahkyzyojcr18/12/2025 10:10 AM ESTPAT Pre Anesthesia [address] [place] [address] Virtual, Pacc [place] [address] [place] [address] 12 VITUAL [phone] HERNIORRHAPHY UMBILICAL REDUCIBLE LESS THAN 3cm [18317] - Dpbxene9202/06/2025 7:30 AM ESTHospital Encounter [facility] Operating Room [address] [place] [address] [place] [address] [place] [address] Umbilical hernia without obstruction and without gangrene [K42.9]02/06/2025 7:30 AM EST - 02/06/2025 9:00 AM ESTSurgery [facility] Operating Room [address] [place] [address] [place] [address] [place] [address] HERNIORRHAPHY UMBILICAL REDUCIBLE LESS THAN 3cmNamePriorityAssociated Diagnoses Date/TimeHERNIORRHAPHY UMBILICAL REDUCIBLE LESS THAN 3cm Umbilical hernia without obstruction and without gangrene 02/06/2025 7:30 AM ESTdocumented as of this encounter Visit Diagnoses Diagnosis Incisional hernia, without obstruction or gangrene- Primary Incisional hernia without mention of obstruction or gangrene Umbilical hernia without obstruction and without gangrene documented in this encounter Care Teams Team MemberRelationshipSpecialtyStart DateEnd Date Reva Ritchie CNP [address] [place] [address] PCP - GeneralInternal Medicine04/10/24 Jeronimo Brandt MD [facility] [address] [place] [address] ReferringGeneral Omqczbl14/24/25documented as of this encounter
--- OUTSIDE RECORDS SUMMARY | 2025-01-14 13:59 | XMS_ITS | Encounter Summary ---
Author Organization [facility] Address [facility] [place] [address] Care Team Providers Care Commercial Insurance Underwriter Name Role Phone Reva Ritchie CNP Primary Care Provider + Jeronimo Brandt MD Unavailable [phone] Source Comments In the event this information is protected by the Federal Confidentiality of Alcohol and Drug AbusePatient Records regulations: The Federal rules restrict any use of the information to criminally investigate or prosecute any alcohol or drug abuse patient.[facility] Encounter Details DateTypeDepartmentCare Team (Latest Contact Info)Jdbldaupmgq29/03/2025Travel Social History Tobacco UseTypesPacks/DayYears UsedDateSmoking Tobacco: FormerCigarettes0.540.8 Started: 04/02/1984Smokeless Tobacco: NeverAlcohol UseStandard Drinks/Week CommentsYes1 (1 standard drink = 0.6 oz pure alcohol)weeklyArea Deprivation IndexAnswerDate RecordedNational Score (1-100), lower number is lower risk78 04/26/2024State Score (1-10), lower number is lower qmyu54604/26/2024Data from: https://www.neighborhoodatlas.medicine.[facility].edu/. Last address used for agojqndaffo[address] [address]/26/2024Sex and Gender InformationValueDate RecordedSex Assigned at BirthNot on fileLegal NcxDmed29/25/2024 2:25 PM EST Gender IdentityNot on fileSexual OrientationNot on filedocumented as of this encounter Plan of Treatment DateTypeDepartmentCare Team (Latest Contact Info)Qznikztucfl49/12/2025 10:10 AM ESTPAT Pre Anesthesia [address] [place] [address] Virtual, Pacc [place] [address] [place] [address] 02/06 VITUAL [phone] HERNIORRHAPHY UMBILICAL REDUCIBLE LESS THAN 3cm [86054] - Ectyfwo6802/06/2025 7:30 AM ESTHospital Encounter [facility] Operating Room [address] [place], [place] [address] [place] [address] [place], [place] [phone] Umbilical hernia without obstruction and without gangrene [K42.9]02/06/2025 7:30 AM EST - 02/06/2025 9:00 AM ESTSurgery [facility] [address] [place] [address] [place] [address] [place] [id number] HERNIORRHAPHY UMBILICAL REDUCIBLE LESS THAN 3cmNamePriorityAssociated Diagnoses Date/TimeHERNIORRHAPHY UMBILICAL REDUCIBLE LESS THAN 3cm Umbilical hernia without obstruction and without gangrene 02/06/2025 7:30 AM ESTdocumented as of this encounter Visit Diagnoses Not on filedocumented in this encounter Care Teams Team MemberRelationshipSpecialtyStart DateEnd Date Reva Ritchie CNP [address] [place] [address] PCP - GeneralInternal Medicine04/10/24 Jeronimo Brandt MD [address] [place] [address] ReferringGeneral Sxfxgfl10/24/25documented as of this encounter
--- OUTSIDE RECORDS SUMMARY | 2025-01-14 13:59 | XMS_ITS | Clinical Summary ---
Author Organization [facility] Address [address] [place] [address] Phone Care Team Providers Care Teaching Supervisor Name Role Phone Unavailable Primary Care Provider Unavailabl e Social History Tobacco UseTypesPacks/DayYears UsedDateSmoking Tobacco: Never AssessedSex and Gender InformationValueDate RecordedSex Assigned at BirthNot on fileLegal Sex Male01/29/2022 11:10 AM ESTGender IdentityNot on fileSexual OrientationNot on file Plan of Treatment Not on file
--- OUTSIDE RECORDS SUMMARY | 2025-01-14 13:59 | XMS_ITS | Clinical Summary ---
Author Organization [facility] Address [address], [address] [place] [address] Care Team Providers Care Fisher Hoop Net Name Role Phone Unavailable Primary Care Provider Unavailabl e Allergies No known active allergies Medications MedicationSigDispense QuantityRefillsLast FilledStart DateEnd DateStatus aspirin 81 MG tablet Take 81 mg by mouth dailyActive simvastatin (ZOCOR) 20 MG tablet Take 20 mg by mouth nightlyActive Social History Tobacco UseTypesPacks/DayYears UsedDateSmoking Tobacco: Never AssessedSex and Gender InformationValueDate RecordedSex Assigned at BirthNot on fileLegal Sex Male04/15/2012 4:17 PM ESTGender IdentityNot on fileSexual OrientationNot on file Last Filed Vital Signs Vital SignReadingTime TakenCommentsBlood Fmdmjtdh037/9804 10:17 PM EDT Tdoib04155 6:17 PM IKYPkecxgrcmec31.6 ??C (97.9 ??F)06/29/2016 6:17 PM EDTRespiratory Cqkt4150 6:17 PM EDTOxygen Yecquslxjh06%06/29/2016 6:17 PM EDTInhaled Oxygen Concentration--Nzckic45.6 kg (160 lb)06/29/2016 7:35 PM EDT Height--Body Mass Index-- Plan of Treatment Not on file Insurance
--- OUTSIDE RECORDS SUMMARY | 2025-01-14 13:59 | XMS_ITS | Clinical Summary ---
Author Organization [facility] tem Address [id number] [place] [address] Care Team Providers Care [employer] Admissions Representative Name Role Phone Reva Ritchie MANAGER CATH LAB-EMERGENCY TELECOMMUNICATIONS DISPATCHER Primary Care Provider Allergies No known active allergies Medications MedicationSigDispense QuantityRefillsLast FilledStart DateEnd DateStatus simvastatin (ZOCOR) 20 mg tablet Take 1 tablet (20 mg total) by mouth in the morning.Active naproxen sodium (ALEVE) 220 mg tablet Take 1 tablet (220 mg total) by mouth every 4 (four) hours as needed for pain. Active Active Problems No known active problems Family History Medical HistoryRelationNameCommentsDiabetesBrotherHeart diseaseFatherDiabetes MotherHypertensionMotherRectal cancerSisterRelationNameStatusCommentsBrother DeceasedFatherDeceasedMotherDeceasedSisterAlive Social History Tobacco UseTypesPacks/DayYears UsedDateSmoking Tobacco: FormerCigarettes0.525 1958 - 1983Smokeless Tobacco: Never Tobacco Cessation:Counseling Given: Not Answered Alcohol UseStandard Drinks/WeekCommentsYes4 (1 standard drink = 0.6 oz pure alcohol)ChildcareAnswerDate ShlbxgwfDwbeeyzadNssldcf61/12/2019EmploymentAnswer Date QhkanfksYhswenehqpUkpqbiq58/12/2019Hunger ScreeningAnswerDate Recorded Within the past 12 months we worried whether our food would run out before we got money to buy more.Never True06/07/2023Food Insecurity - InabilityNot on file 06/07/2023Sex and Gender InformationValueDate RecordedSex Assigned at BirthNot on fileLegal IefDaab5710/09/2014 11:37 AM EDTGender IdentityNot on fileSexual OrientationNot on file Last Filed Vital Signs Vital SignReadingTime TakenCommentsBlood Fmtkrexj929/8605 11:03 AM EDT Hjjpy447807/20/2023 11:03 AM EDTTemperature--Respiratory Epwg659307/20/2023 11:03 AM EDTOxygen Kxekldioig589%07/20/2023 11:03 AM EDTInhaled Oxygen Concentration-- Xtvmwz71 kg (150 lb)07/20/2023 10:26 AM BJTYmkmcw931.2 cm (5' 7 )07/20/2023 10:26 AM EDTBody Mass Index23.49007/20/2023 10:26 AM EDT Plan of Treatment Health MaintenanceDue DateLast DoneCommentsDepression Fzsbppeti88/19/1959 DTaP,Tdap and Td Vaccines (1 - Tdap)1965Zoster (Shingles) Vaccine (1 of 2) 1996Fall Risk Uijaqgrgk54/19/2012Tobacco Grlsvscjd84 COVID-19 Vaccine ( season)/, 12/14/2021, 06/29/2021, Additional history existsInfluenza Yrozzqu83/, 11/15/2021, 12/23/2020, Additional history existsRSV ( or age 60+ yrs) Uuuyshhcv24/20/2023 Medical Devices Not on file Insurance Care Teams Team MemberRelationshipSpecialtyStart DateEnd Date Reva Ritchie, MANAGER CATH LAB-EMERGENCY TELECOMMUNICATIONS DISPATCHER [address] [place] [id number] [facility]06/01/23
--- NOTE | 2025-01-14 14:00 | XR_ITS ---
[facility] [place] [id number] Patient Name: ABIGAIL BIRMINGHAM MRN: [id number] date: 1945 Sex: M Assigned Patient Location: [facility] Current Patient Location: [facility] Accession/Order Number: [id number] Exam Date: 01/14/2025 14:05 Report Date: 01/14/2025 18:30 At the request of: ZACHARY SHANNON Procedure: XR lumbar spine 2-3V XR lumbar spine 2-3V 01/14/2025 2:14 PM SIGNS AND SYMPTOMS: ^Sciatica M54.30 PROTOCOLS: Frontal and lateral graphs of the lumbar spine COMPARISON: 12/17/2024 FINDINGS: The alignment, development and bony structures are normal. There is no fracture or destructive lesion. There is mild vertebral disc height loss at L4-5 and L5-S1 with facet hypertrophy throughout the lumbar spine. The vertebral body heights are preserved. Degenerative changes are noted in the sacroiliac joints. XR/XR lumbar spine 2-3V IMPRESSION: No fracture or subluxation. Degenerative changes are noted greatest in the lower lumbar spine as above. Impression dictated by: Asael Castorena M.D. 01/14/2025 6:30 PM Dictation Location: [place] [address] Electronically authenticated by: [id number] Y Date: 01/14/2025 18:30
--- OUTSIDE RECORDS SUMMARY | 2025-01-14 14:07 | XMS_ITS | CCD ---
Author Organization [facility] Care Team Providers Care Vp Communications Name Role Phone Luiz Jimenez Unavailable REVA SHANNON Admitting Unavailable SHIVA, REVA Attending Unavailable MADHAVI, DR ZULEMA Obando Consulting Unavailable SHIVA, REVA Primary Care Unavailable SHIVA, REVA Consulting Unavailable SHIVA, REVA Attending Unavailable SHIVA, REVA Consulting Unavailable SHIVA, REVA Primary Care Unavailable SHIVA, REVA Admitting Unavailable SHIVA, REVA Primary Care Unavailable MELISSAY ., DR PAT Admitting Unavailable HOY ., DR PAT Attending Unavailable LINDSEY ., DR PAT Consulting Unavailable MADHAVI, DR ZULEMA Obando Consulting Unavailable DO Jaciel Echavarria Attending Provider [phone] REVA SHANNON Primary Care Physician LAKEISHA JUNG Attending Unavailable SHIVA, REVA S Referring Unavailable SHIVA, REVA S Primary Care Unavailable SHIVA, REVA S Referring Unavailable SHIVA, REVA S Primary Care Unavailable SHIVA, REVA S Referring Unavailable SHIVA, REVA S Primary Care Unavailable JACIEL ECHAVARRIA Attending Unavailable JACIEL ECHAVARRIA Referring Unavailable SHIVA, REVA S Primary Care Unavailable GRJACIEL PULIDO E Attending Unavailable GRILLIS, JACIEL E Referring Unavailable SHIVA, REVA S Primary Care Unavailable Zack Gibson Referring Unavailable SHIVA, REVA S Primary Care Unavailable MD Jaciel Henry Attending Provider [phone] Jaciel Echavarria Admitting Unavailable Jaciel Echavarria Attending Unavailable Jaciel Henry Admitting Unavailable Jaciel Henry Attending Unavailable Jaciel Henry Admitting Unavailable Jaciel eHnry Attending Unavailable Jaciel Henry MD Attending Provider [phone] Unavailable Primary Care Provider Unavailnatalya Shannon NET PROGRAMMER ANALYST-CHILD AND ADOLESCENT THERAPIST, Reva S Primary Care Provider Unavailable Primary Care Provider Unavailnatalya Shannon CHILD AND ADOLESCENT THERAPIST, Reva S Primary Care Provider Rupal Velazquez DO Attending Provider [phone] Shiva AMPHIBIAN CREWMEMBER-C, Reva Rubina Primary Care Provider [phone] NILL, Jaciel R Attending Unavailable NILL, Jaciel Obando Attending Unavailable NILL, Jaciel Obando Attending Unavailable SHIVA, REVA S Referring Unavailable NILL, Jaciel Obando Attending Unavailable NILL, Jaciel Obando Attending Unavailable NILL, Jaciel Obando Attending Unavailable SHIVA, REVA S Primary Care Unavailable NANETTE SANTA Attending Unavaila ble SHIVA, REVA S Primary Care Unavailable TAODESIREE A Attending Unavailable TAO, DESIREE A Attending Unavailable TAO, DESIREE A Admitting Unavailable TAO, DESIREE A Referring Unavailable TAO, DESIREE A Attending Unavailable TAO, DESIREE A Admitting Unavailable TAO, DESIREE A Referring Unavailable SHIVA, REVA S Primary Care Unavailable WILBERTO BOWMAN Attending Unavailable SHIVA, REVA S Referring Unavailable TAO, DESIREE A Attending Unavailable DAVY GRAY Referring Unavailab DAVY Reis Referring Unavailab le SHIVA, REVA S Primary Care Unavailable TAO, DESIREE A Referring Unavailable SHIVA, REVA S Primary Care Unavailable TAO, DESIREE A Referring Unavailable Allergies Allergy ClassificationReported Allergen(s)Allergy TypeDate of OnsetReaction(s) Facility (1 source)No Known Medication Allergies; Translations: [No Known Medication Allergies]Propensity to adverse reactions (disorder)[facility] Repository (1 source)Ofloxacin; Translations: [OFLOXACIN]Drug Uyglruz25-40-7123QvdqcgagrOhio[facility] Repository Medications Current Medications MedicationDrug Class(es)DatesSig (Normalized)Sig (Original)gentamicin 3 mg/ml ophthalmic solution (1 source)Start: 68-46-5893zush 1 drop(s) into the eye(s) four times daily gentamicin (GENTAK) 0.3 % ophthalmic solution One drop in the OPERATIVE EYE only four times a day starting the day before surgery and for three days after 5 mL 05/23/2024 ActiveStart: 14-95-9362rqun 1 drop(s) into the eye(s) four times dailygentamicin (GENTAK) 0.3 % ophthalmic solution One drop in the OPERATIVE EYE only four times a day starting the day before surgery and for three days after 5 mL 05/23/2024 Activeketorolac tromethamine 5 mg/ml ophthalmic solution (3 sources)Nonsteroidal Anti-inflammatory Drug, Cyclooxygenase InhibitorStart: 05-01-2024 End: 62-28-2846cxSYSnaqr (ACULAR) 0.5 % ophthalmic solution Use one drop in operative eye as directed by Dr. Rooney starting tomorrow. 5 mL 05/22/2024 05/23/2024 Discontinued (Course of therapy completed)naproxen sodium 220 mg oral tablet (12 sources)Nonsteroidal Anti-inflammatory Drugtake 1 tablet by mouth every four hours as needednaproxen sodium (ANAPROX) 220 mg tablet Take 220 mg by mouth every 4 hours as needed (prn). Activeofloxacin 3 mg/ml ophthalmic solution (5 sources)Quinolone AntimicrobialStart: 04-02-2024 End: 74-68-5203sshw 1 drop(s) into the eye(s) four times daily, then take 1 drop(s) into the eye(s) four times dailyofloxacin (OCUFLOX) 0.3 % ophthalmic solution 1 Drop four times daily. One drop in the OPERATIVE EYE only four times a day starting the day before surgery 10 mL 1 04/02/2024 05/23/2024 Discontinued (Course of therapy completed)omeprazole 20 mg delayed release oral capsule (11 sources)Proton Pump InhibitorStart: 47-82-0495xvhn 1 capsule by mouth once dailyStart: 60-36-1458Egeienpvio Magnesium (PRILOSEC OTC) 20 mg tablet Take 20 mg by mouth. 11/21/2023 ActiveStart: 62-87-0077tcvc 20 mg by mouth once daily Prilosec OTC 20 mg, Oral, Daily, Refills(s) 0 Start Date: 11/21/23 Status: OrderedprednisoLONE acetate 10 mg/ml ophthalmic suspension (3 sources)CorticosteroidStart: 56-49-5358bopuxkisWIHN acetate (PRED FORTE) 1 % ophthalmic suspension Use one drop in operative eye as directed by Dr. Rooney starting tomorrow. 05/22/2024 Activesimvastatin 20 mg oral tablet (20 sources)HMG-CoA Reductase InhibitorStart: 26-94-6767Ctohg: 06-28-2023 simvastatin (ZOCOR) 20 mg tablet Take 20 mg by mouth. 06/28/2023 Activetake 1 tablet by mouth in the morningsimvastatin (ZOCOR) 20 mg tablet Take 1 tablet (20 mg total) by mouth in the morning. 0 Active Problems Active Problems Problem ClassificationProblemDateDocumented DateEpisodic/ChronicAbdominal hernia (9 sources)Umbilical hernia; Translations: [Umbilical hernia without obstruction or gangrene]Onset: 41-32-3912NijikqivFirnmlyvn pain (4 sources)Right upper quadrant pain; Translations: [Right upper quadrant pain] Onset: 33-09-2245GiuysoymEzmicfq disorders (6 sources)Lxjaciz48-70-2783XbsvhbaWtyjiomuu and vision defects (2 sources)Diplopia; Translations: [Diplopia]15-35-0972LmrcldxwQxfjzsgn (20 sources)Senile combined form cataract of right eye; Translations: [Combined forms of age-related cataract, right eye]Onset: 03-29-2024 Resolved: 665625-80-0813DyzelvrCpbubwtobvdwg of surgical procedures or medical care (4 sources)Complication of procedure; Translations: [Other complications of procedures, not elsewhere classified, initial encounter]Onset: 01-10-2024 EpisodicDiabetes mellitus without complication (4 sources)Hyperglycemia, unspecified; Translations: [HYPERGLYCEMIA UNSPECIFIED] Onset: 73-00-1279ZwzqtrazSgfptrqz of white blood cells (5 sources)Opytpgwghvwk50-40-0037VdqxtrfQtdmvehqx of lipid metabolism (18 sources)Hyperlipidemia, unspecified; Translations: [Hyperlipidemia]Onset: 946816-34-7955FqaahmfCrxoucephlgxom and diverticulitis (10 sources)Diverticulosis of sigmoid colon; Translations: [Diverticular disease]09-20-3137YeuzzwyKlxhlldmdm disorders (5 sources)Gastroesophageal reflux disease without esophagitis; Translations: [Gastro-esophageal reflux disease without esophagitis]Onset: 04-26-2024 30-06-5604TprwkgeQvbigyitk hypertension (5 sources)Essential yvidqmtpjsnz92-03-7835SfndzafSxdnynog (7 sources)Narrow angle; 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, bilateral] Onset: 136402-20-1780ZydtyxcItnlbagaxovbl and screening for infectious disease (1 source)Encounter for immunization; Translations: [Encounter For Immunization] Onset: 95-64-4737OqwtnawiKzqkwtpatit chest pain (4 sources)Other chest pain; Translations: [OTHER CHEST PAIN]Onset: 06-06-2022 EpisodicOther aftercare (1 source)Encounter for follow-up examination after completed treatment for conditions other than malignant neoplasm; Translations: [Encounter for follow-up examination after completed treatment for conditionsother than malignant neoplasm]Onset: 91-99-1150GattkruiBpwrj and unspecified benign neoplasm (6 sources)Benign neoplasm of descending colon; Translations: [Benign neoplasm of descending colon]Onset: 83-29-8666GdlnmmrlPuodf and unspecified benign neoplasm (4 sources)History of polyp of -50-6882LtyeyjcrByfcv eye disorders (9 sources)Fourth nerve palsy; 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, left eye]Onset: 017214-28-6900HjbocotkHcqyd eye disorders (2 sources)Abducens nerve palsy; Translations: [Sixth [abducent] nerve palsy, unspecified eye]74-93-8612UkwrxjhpNlofw gastrointestinal disorders (1 source)Abnormal feces; Translations: [Other fecal abnormalities]Onset: 14-16-7396ShvxfqvbPzvns gastrointestinal disorders (1 source)Disorder of peritoneum; Translations: [Other specified disorders of peritoneum]Onset: 49-75-8368YpwzcqqdVvjnh liver diseases (5 sources)Lesion of bjheh17-51-0837GsnbdusDxrfm nutritional; endocrine; and metabolic disorders (6 sources)Befoenefex94-01-5968FmevakpkMujqd nutritional; endocrine; and metabolic disorders (6 sources)Overweight in adulthood with body mass index of 25 or more but less than 1414-98-4906NzcplwrvKsaim screening for suspected conditions (not mental disorders or infectious disease) (11 sources)Encounter for screening for malignant neoplasm of prostate; Translations: [Stool DNA-based colorectal cancer screening positive]Onset: 997412-75-3330MkpfktuzVrqhdles codes; unclassified (1 source)Pain, unspecified; Translations: [Pain, unspecified]Onset: 07-20-2023 EpisodicResidual codes; unclassified (2 sources)Acquired absence of other specified parts of digestive tract; Translations: [Acquired absence of other specified parts of digestive tract] Onset: 37-20-2694HnzznlnpPydefvtxntvo (1 source)Post-opOnset: 06-07-2023 Past or Other Problems Problem ClassificationProblemDateDocumented DateEpisodic/ChronicOther aftercare (1 source)History of repair of umbilical hernia; Translations: [Encounter for follow-up examination after completed treatment for conditions other than malignant neoplasm]94-68-6788NzaeeiefZiglt diseases of veins and lymphatics (4 sources)Scrotal varices; Translations: [SCROTAL VARICES]Onset: 11-18-2021 Episodic Results Test NameValueInterpretationReference RangeFacilityCNOVon 63-60-3755JANFEwwlaj Visit ([facility]) ABIGAIL WASHINGTON ([id number]) 1945 M Date Time Provider Department 01/13/25 1:15 PM WILBERTO BOWMAN [facility] During your visit today, we recorded the following information about you: Temperature Pulse Blood pressure 98.4 degrees 63/minute 156/71 Wilberto Bowman MD 01/13/2025 2:14 PM Signed Consultation requested by Dr. Reva Shannon, CHILD AND ADOLESCENT THERAPIST, CHILD AND ADOLESCENT THERAPIST for an opinion regarding recurrent umbilical hernia. [...] hernia repair performed by Dr. Jolley at [facility] in [place], [place], with mesh placement - Regularly lifts his 80-pound Labrador with hip problems into his car Sciatica: - Recently developed sciatica - Describes sciatica as very painful - Expresses concern about undergoing another hernia repair while sciatica is active, fearing it may exacerbate his pain Blood pressure 156/71, pulse 63, temperature 36.9 ?C (98.4 ?F), SpO2 97%. General: No acute distress. Abd: [...] concerns addressed Pt appreciative of the care Wilberto Bowman MD I spent 30 minutes in the visit, with more than 50% of the total zhtb-tv-drld time of the visit in counseling / coordination of care. Referring Provider: REVA SHANNON [[id number]] Allergies As of Date: 01/13/2025 Noted Allergy Reaction OFLOXACIN 09/30/2024 14 - Other: See Comments 16 - Unknown Date Reviewed: 01/13/2025 Reviewed by: Radha Roger, JANNA - Fully Assessed Reason for Visit: Hernia [1598] New [556770] Primary Visit Diagnosis:Incisional hernia, without obstruction or gangrene [K43.2] Prescriptions as of 01/13/2025 - omeprazole magnesium (PRILOSEC PO) Take by mouth. - gentamicin (GENTAK) 0.3 % ophthalmic solution One drop in the OPERATIVE EYE only four times a day starting the day before surgery and for three days after - prednisoLONE acetate (PRED FORTE) 1 % ophthalmic suspension Use one drop in operative eye as directed by Dr. Rooney starting tomorrow. - prednisoLONE acetate (PRED FORTE) 1 % ophthalmic suspension Use one drop in operative eye as directed by Dr. Rooney starting tomorrow. - simvastatin (ZOCOR) 20 mg tablet Take 20 mg by mouth. - naproxen sodium (ANAPROX) 220 mg tablet Take 220 mg by mouth every 4 hours as needed (prn). - Omeprazole Magnesium (PRILOSEC OTC) 20 mg tablet Take 20 mg by mouth. 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.] May 22, 2024 TIME: 2:09 PM CSN: [id number] [facility] Center PRE-OPon [id number] PRE-OPHNO ID: [id number] Author: DAVID ALLISON MD Service: Anesthesiology Author Type: Anesthesiologist Type: Anesthesia Preprocedure Evaluation Filed: 05/22/2024 10:59 Note Text: ANESTHESIOLOGY DAY OF SURGERY NOTE : 1945 Procedure Information Date/Time: 05/22/24 1050 Procedures: PHACOEMULSIFICATION CATARACT IMPLANT INTRAOCULAR LENS W/O ENDOSCOPIC CYCLOPHOTOCOAGULATION (Left: Eye) OPHTHALMIC BIOMETRY BY PARTIAL COHERENCE INTERFEROMETRY W/INTRAOCULAR LENS POWER CALCULATION (Left: Eye) Location: [address] Surgeons: Desiree Rooney MD Estimated body [...] May 22, 2024 TIME: 10:58 AM CSN: [id number] Bethesda Butler HospitalOPERATIVE NOon [id number] NOHNO ID: [id number] Author: DESIREE ROONEY MD Service: Ophthalmology Author Type: Physician Type: Operative Report Filed: 07/10/2024 08:07 Note Text: OPERATIVE/PROCEDURE REPORT LOG ID: [id number] Surgery/Procedure Date: 05/22/2024 Incision/Procedure Start Time: 11:46 AM Incision Close/Procedure End Time: 11:53 AM Surgeon(s)/Proceduralist(s) and Golf Cart Maker(s): Surgeons and Role: * Desiree Rooney MD - Primary Golf Cart Maker: None. Any nurse listed as assisting or [...] presence of the Nurse Coordinator and the artificial insemination technician and a secondary full lens verification as part of the Time Out, with patient identity, laterality, and lens choice confirmed against the source document by myself, the Field Underwriter Nurse, and the artificial insemination technician. Topical lidocaine gel 2% was placed [...] Using the Suleiman phacoemulsification unit with the Qwickly curved tip, the anterior chamber was entered [...] the entire procedure. Comanage with Dr. Gray; [facility] POD #1. SIGNATURE: Desiree Rooney MD PATIENT NAME: Abigail Washington DATE: May 22, 2024 TIME: 11:54 AM PAGER/CONTACT #:[facility] POSTPROC EVALon [id number] POSTPROC EVALHNO ID: [id number] Author: MARCIANO ANGEL II, DO Service: Anesthesiology Author Type: Anesthesiologist Type: Anesthesia Postprocedure Evaluation Filed: 05/01/2024 12:59 Note Text: POST ANESTHESIA EVALUATION NOTE : 1945 Procedure Summary Date: 05/01/24 Room / Location: [address] Anesthesia Start: 1127 Anesthesia Stop: 1144 [...] May 01, 2024 TIME: 12:59 PM CSN: [id number] Healthcare PRE-OPon [id number] PRE-OPHNO ID: [id number] Author: MARCIANO ANGEL II, DO Service: Anesthesiology Author Type: Anesthesiologist Type: Anesthesia Preprocedure Evaluation Filed: 05/01/2024 10:46 Note Text: ANESTHESIOLOGY DAY OF SURGERY NOTE : 1945 Procedure Information Date/Time: 05/01/24 1100 Procedures: PHACOEMULSIFICATION CATARACT IMPLANT INTRAOCULAR LENS W/O ENDOSCOPIC CYCLOPHOTOCOAGULATION (Right: Eye) OPHTHALMIC BIOMETRY BY PARTIAL COHERENCE INTERFEROMETRY W/INTRAOCULAR LENS POWER CALCULATION (Right: Eye) Location: [address] Surgeons: Desiree Rooney MD Estimated body [...] May 01, 2024 TIME: 10:40 AM CSN: [id number]y Hospitals Geauga Medical CenterOPERATIVE NOon [id number] NOHNO ID: [id number] Author: DESIREE ROONEY MD Service: Ophthalmology Author Type: Physician Type: Operative Report Filed: 05/01/2024 11:43 Note Text: OPERATIVE/PROCEDURE REPORT LOG ID: [id number] Surgery/Procedure Date: 05/01/2024 Incision/Procedure Start Time: 11:35 AM Incision Close/Procedure End Time: 11:41 AM Surgeon(s)/Proceduralist(s) and Golf Cart Maker(s): Surgeons and Role: * Desiree Rooney MD - Primary Golf Cart Maker: None. Any nurse listed as assisting or [...] presence of the Nurse Coordinator and the artificial insemination technician and a secondary full lens verification as part of the Time Out, with patient identity, laterality, and lens choice confirmed against the source document by myself, the Field Underwriter Nurse, and the artificial insemination technician. Topical lidocaine gel 2% was placed [...] lidocaine on a 27-guage cannula. Using the Protonet phacoemulsification unit with the Qwickly curved tip, the anterior chamber was entered [...] Implant Name Type Inv. Item Serial No. Director Of Provider Relations Lot No. LRB No. Used Action Model No. [id number] [facility] - [id number] Intraocular Lens [id number] [employer] [id number] [employer] Right 1 Implanted [id number] Drains: None. Complications: None. I performed the entire procedure. [facility] SIGNATURE: Desiree Rooney MD PATIENT NAME: Abigail Washington DATE: May 01, 2024 TIME: 11:43 AM PAGER/CONTACT #:NormalHolmes County [facility] HospitalASCAN ONLY - DIAGNOSTIC OU (BOTH EYES)on 75-07-7710Zmtylhhei ClinicRadiology Study observation (narrative)[facility] DaytonHISTORY PHYSICALon [id number] PHYSICALHNO ID: [id number] Author: TYLER BELTRAN APRN.CNP Service: ? Author Type: Nurse Practitioner Type: H&P Filed: 04/26/2024 10:18 Note Text: [facility] HISTORY AND PHYSICAL EXAMINATION SERVICE DATE: 04/26/2024 SERVICE TIME: 10:02 AM PRIMARY CARE PHYSICIAN: Reva Shannon CNP, CHILD AND ADOLESCENT THERAPIST REASON FOR VISIT: Abigail Washington is a [...] have a large neck STOP-Bang Score: 2 XIF2IR4-UXCi Score: Age: >=75 Sex: male CHF history: No Hypertension history: No Stroke/TIA/thromboembolism history: No Vascular disease history: No Diabetes history: No YQN7PK1-XSXb Score: 2 ARISCAT Score: Age: 51-80 Preoperative [...] fevers. Neuro: No history of TIA's, stroke, HURL SHAKER tumor, impaired sensorium, hemiplegia, paraplegia or quadraplegia. No neurological symptoms or problems. Respiratory: No history of current cough or dyspnea, or pneumonia in the past 6 weeks. No history of respiratory/pulmonary symptoms or problems. Cardiovascular: No history of HTN requiring medication, no history of angina, CHF, GA, cardiac surgery or stents. Denies rest pain, [...] No history of CA (more content not included)...[facility] BIOMETRY W/ IOL CALC OU (BOTH EYES)on 57-45-4959[facility] Rad[facility] Study observation (narrative)[facility] DaytonAmbulatory Visit Summary on 40-88-0171Mebrulhfwx Visit SummaryAmbulatory Visit Summary ABIGAIL WASHINGTON :1945 Visit Date:02/06/2024 [...] (09/23/2015), Cholecystectomy, Excision of basal cell carcinoma, Excisionof squamous cell carcinoma, Repair of umbilical hernia, Tonsillectomy. What to do next You Need to Schedule the Following Appointments Follow Up with ELAINE FRANCISCO, Jaciel Obando, CASE When: Only if needed Where: [address] [place] [address]- Medications What How Much When Instructions Unchanged [...] you for choosing us for your care. [facility] CenterGeneral [facility] Office/Clinic Noteon 20-52-4438Wayutgl Surgery Office/Clinic NoteGeneral Surgery Office/Clinic Note Chief Complaint post operative follow up HPI Staff 20 day post operative follow up post robotic assisted umbilical hernia repair. Reports intermittentsoreness to upper port site. Taking Ibuprofen BID. Denies bleeding or drainage. Bowels moving well.Wearing abdominal binder. History of Present Illness 3 weeks s/p robotic assisted umbilical incisional hernia repair (recurrent umbilical hernia); doingwell, taking ibuprofen prn; no N/V; no drainage from incisions, mild soreness at times; normal bms;no strenuous activities; wearing binder at all times. [...] FRANCISCO, CASE Bautista Only if needed [address] [employer] [place] [address]- Additional Instructions: Problem List/Past Medical [...] (09/23/2015), Cholecystectomy, Excision of basal cell carcinoma, Excisionof squamous cell carcinoma, Repair of umbilical hernia, [...] virus vaccine, inactivated 11/23/2022 Recorded SARS-CoV-2 (COVID-19) mRNAMUL.ORD![id number] 12/14/2021 Recorded SARS-CoV-2 (COVID-19) mRNA BNT-162b2 vax 06/29/2021 Recorded SARS-CoV-2 (COVID-19) mRNA-1273 vaccine 01/06/2021 Recorded SARS-CoV-2 (COVID-19) mRNA-1273 vaccine 06/04/2020 Recorded SARS-CoV-2 (COVID-19) mRNA-1273 vaccine 05/07/2020 RecordedNoMercy Memorial HospitalComment on above:Result Comment: Electronically Signed By: Jaciel HENRY MD\.br\Date and Time Signed: 02/06/24 09:17 ESTAmbulatory Visit Summaryon 64-12-2070Dlayokcikw Visit SummaryAmbulatory Visit Summary ABIGAIL WASHINGTON :1945 Visit Date:01/24/2024 [...] (09/23/2015), Cholecystectomy, Excision of basal cell carcinoma, Excisionof squamous cell carcinoma, Repair of umbilical hernia, Tonsillectomy. What to do next Scheduled Follow-Up Appointments Monday 8:40 AM EST With: Jaciel HENRY MD Where: [address], [address], [place] [address]- Medications What How Much When Instructions Unchanged [...] you for choosing us for your care. [facility] CenterGeneral Surgery Office/Clinic Noteon 68-50-0599Csmgvyf Surgery Office/Clinic NoteGeneral Surgery Office/Clinic Note Chief Complaint post operative follow up HPI Staff 7 day post operative follow up post robotic assisted umbilical hernia repair. Reports minimal discomfort. Taking Hydrocodone BID and Ibuprofen 600mg BID. Denies bleeding or drainage. [place] moving well. Wearing abdominal binder as directed. [...] (09/23/2015), Cholecystectomy, Excision of basal cell carcinoma, Excisionof squamous cell carcinoma, Repair of umbilical hernia, [...] virus vaccine, inactivated 11/23/2022 Recorded SARS-CoV-2 (COVID-19) mRNAMUL.ORD![id number] 12/14/2021 Recorded SARS-CoV-2 (COVID-19) mRNA BNT-162b2 vax 06/29/2021 Recorded SARS-CoV-2 (COVID-19) mRNA-1273 vaccine 01/06/2021 Recorded SARS-CoV-2 (COVID-19) mRNA-1273 vaccine 06/04/2020 Recorded SARS-CoV-2 (COVID-19) mRNA-1273 vaccine 05/07/2020 RecordedNoMercy Memorial HospitalComment on above:Result Comment: Electronically Signed By: ELAINE FRANCISCO, Jaciel Hall\Date and Time Signed: 01/24/24 14:51 ESTPathology study report documentOrdered By: Humberto Perkins on 47-08-1129Gyovbyrkb studyAdena Pike Medical Center Other Loj 01-17-2024L Specimen: [id number] Received: 01/17/24 Status: BRENT Nilesh Num: [id number] Spec Type: Surgical Subm Dr: Jaciel Henry MD FACS Tissues: A Hernia Sac (HERNIA SAC) Procedures: Obdulio BAZAN/Micky L2 Age/ Patient Sex Location Account Attending Physician Abigail Washington 78/M LABELL [id number] Jaciel Henry MD FACS SPEC NUM: [id number] RECD: 01/17/24 STATUS: BRENT VALENZUELA NUM: [id number] DAMARI: 01/17/24 [facility] DR: Jaciel Henry MD FACS ENTERED: 01/17/24 [facility] DR: Gonzalez Orantes SPEC TYPE: Surgical DEPT: O[facility] WILLOUGHBY ENTERED BY: [id number] RECV BY: [id number] ORDERED: HE, Gross/Micro L2 ORDERED: HE, Gross/Micro [...] 0.5 cm in thickness. Serial sections reveal angel- coughlin to pink, glistening and uniform cut surfaces. Floor Supervisor sections are submitted in a single cassette. (1, , [id number]) CHELSEY Specimen: [id number] Received: 01/17/24 Status: QUETAPatrice Valenzuela Num: [id number] Spec Type: Surgical Subm Dr: Jaciel Henry MD FACS Tissues: A Hernia Sac (HERNIA SAC) Procedures: Obdulio BAZAN/Micky L2 Patient: Abigail Washington [id number] (Continued) Specimen: [id number] Received: 01/17/24 (Continued) Signed (signature on file) Humberto Perkins MD 01/18/24 1801 Specimen: [id number] Received: 01/17/24 Status: BRENT Valenzuela Num: [id number] Spec Type: Surgical Subm Dr: Jaciel Henry MD FACS Tissues: A Hernia Sac (HERNIA SAC) Procedures: Obdulio BAZAN/Micky L2 Patient: Abigail Washington [id number] (Continued) Specimen: [id number] Received: 01/17/24 (Continued) Microscopic Description Microscopic examinations are performed supporting the above interpretation CPT Codes 16530 Specimen: [id number] Received: 01/17/24 Status: BRENT Valenzuela Num: [id number] Spec Type: Surgical Subm Dr: Jaciel Henry MD FACS Tissues: A Hernia Sac (HERNIA SAC) Procedures: Obdulio BAZAN/Micky L2 Patient: Abigail Washington [id number] (Continued) Signed (signature on file) Christ-Afshin Perkins MD 01/18/[address] [place] [address] Physician GroupAmbulatory Visit Summaryon 01-10-2024 Ambulatory Visit SummaryAmbulatory Visit Summary ABIGAIL WASHINGTON :1945 Visit Date:01/10/2024 [...] you for choosing us for your care. [facility] CenterAmb[facility] Visit Summaryon 96-84-3659Kunncavhgb Visit SummaryAmbulatory Visit Summary ABIGAIL WASHINGTON :1945 Visit Date:11/21/2023 [...] you for choosing us for your care. [facility] CenterLon 25-27-8756LIiktrciq: [id number] Received: 08/10/23 Status: BRENT Mckeon Num: [id number] Spec Type: Surgical Subm Dr: Jaciel Henry MD FACS Tissues: A Colon Biopsy (SIGMOID POLYP) Procedures: HE/2, Gross/Micro L4 Age/ Patient Sex Location Account Attending Physician Abigail Washington 77/M LABELL [id number] Jaciel Henry MD FACS SPEC NUM: [id number] RECD: 08/10/23 STATUS: [facility] NUM: [id number] DAMARI: 08/09/23 [facility] DR: Jaciel Henry MD FACS ENTERED: 08/10/23 [facility] DR: Iveth,Lab SPEC TYPE: Surgical DEPT: [facility]OUGHBY ORDERED: [...] cm, entirely submitted in A1. CPT Codes 37224 Specimen: [id number] Received: 08/10/23-6 Status: BRENT Valenzuela Num: [id number] Spec Type: Surgical Subm Dr: Jaciel Henry MD FACS Tissues: A Colon Biopsy (SIGMOID POLYP) Procedures: HE/2, Gross/Micro L4 Patient: Abigail Washington [id number] (Continued) Signed (signature on file) Humberto Perkins MD 08/14/[address] [place] [address] Physician GroupASPIRATE CULTUREon 83-37-3173Mdwgnksm identified Aer cx Nom (Asp)GRAM STAIN 10 to 24 WHITE BLOOD CELLS/LPF 0 SQUAMOUS EPITHELIAL CELLS/LPF NO ORGANISMS SEEN CULTURE RESULTS NO GROWTH 3 DAYSNormalProMedica Kaiser Martinez Medical CenterComment on above:Performed By: #### 597-5 #### [facility] ([id number]) [address] [place], [place] [address]GXHJPOEAJLLYG METABOLIC PANELon 17-28-5122Mjxfnzf [Mass/Vol]3.5 g/dLNormal3.2-5.3PMercy Health St. Joseph Warren HospitalComment on above:Performed By: #### CMP #### [facility] ([id number]) [address] [place] [address], [place] [address]XQL [Catalytic activity/Vol]298 U/VQbrz43-092KpfTgdfgoChildren'S Medical Center DallasComment on above:Performed By: #### CMP #### [facility] ([id number]) [address] [place] [address], [place] [address]CPI [Catalytic activity/Vol]32 U/LNormal0-40ProChildren'S Medical Center DallasComment on above:Performed By: #### CMP #### [facility] ([id number]) [address] [place] [address], [place] [address]Pevdq gap [Moles/Vol]10 mmol/LNormal5-15ProChildren'S Medical Center DallasComment on above:Performed By: #### CMP #### [facility] ([id number]) [address] [place] [address], [place] [address]IWQ [Catalytic activity/Vol]36 U/LNormal0-41ProChildren'S Medical Center DallasComment on above:Performed By: #### CMP #### [facility] ([id number]) [address] [place] [address], [place] [address]Gayrdgkhm [Mass/Vol]1.0 mg/dLNormal0.3-1.2PMercy Health St. Joseph Warren HospitalComment on above:Performed By: #### CMP #### [facility] ([id number]) [address] [place] [address], [place] [address]Lmysrdt [Mass/Vol]8.8 mg/dLNormal8.5-10.5PMercy Health St. Joseph Warren HospitalComment on above:Performed By: #### CMP #### [facility] ([id number]) [address] [place] [address], [place] [address]Ohzfkmfr [Moles/Vol]101 mmol/VVljfdy95-310LicMqkdqtChildren'S Medical Center DallasComment on above:Performed By: #### CMP #### [facility] ([id number]) [address] [place] [address]NK9 [Moles/Vol]25 mmol/NXhqszt27-61MkcMcfnlc [facility] Comment on above:Performed By: #### CMP #### [facility] ([id number]) [address] [place] [address]Hwmokqwnqu [Mass/Vol]0.89 mg/dLNormal0.70-1.20Community Memorial HospitalComment on above:Result Comment: METHOD TRACEABLE TO IDMS STANDARD Performed By: #### CMP #### [facility] ([id number]) [address] [place] [address]RJH/1.73 sq M.predicted among non-blacks MDRD (S/P/Bld) [Vol rate/Area]89 mL/min/{1.73_m2}Normal>59Community Memorial HospitalComment on above:Result Comment: Reported eGFR is based on the CKD-EPI 2020 equation that does not use a race coefficient.Performed By: #### CMP #### [facility] ([id number]) [address] [place] [address]Yuedqfj [Mass/Vol]104 mg/xDBlmm36-78UofKwychdCommunity Memorial Hospital Comment on above:Performed By: #### CMP #### [facility] ([id number]) [address] [place] [address]Loiecnnva [Moles/Vol]4.0 mmol/LNormal3.5-5.0Community Memorial HospitalComment on above:Performed By: #### CMP #### [facility] ([id number]) [address] [place] [address]Msfkizp [Mass/Vol]7.8 g/dLNormal6.0-8.0ProChildren'S Medical Center DallasComment on above:Performed By: #### CMP #### [facility] ([id number]) [address] [place] [address]Pdtqro [Moles/Vol]136 mmol/CNqkkpn968-670LdaUjvmfm [facility] HospitalComment on above:Performed By: #### CMP #### [facility] ([id number]) [address] [place] [address]Bxke nitrogen [Mass/Vol]17 mg/dLNormal5-27ProChildren'S Medical Center DallasComment on above:Performed By: #### CMP #### [facility] ([id number]) [address] [place] [address]Hroijqevlz 89-66-7284GevfkteoUektdaNzhIrekox [facility] Comment on above:Result Comment: [employer] [facility] [address] [place] [address] Cytology Consultation Patient Name:ABIGAIL WASHINGTON:1945 (Age: 77)Gender:MTaken:07/20/2023eported:07/21/2023 11:52Physician(s):Zack Gibson M.D. ([phone])Copy To:Jaciel Ehcavarria D.O. Rec. #:[id number]: #[id number] Final Cytologic Diagnosis Bile leak fluid: No malignant cells identified. [facility]/07/21/2023 Interpretation performed at [facility], [address] [place] [address], License number: [id number].Electronically Signed Out By Jerrod Batista M.D. Clinical History None given. Gross Description Received was 1,600 mL of brown fluid unfixed labeled as [place], bile leak . CytoLyt added in lab. Specimen placed in formalin at 14:00 and had a total fixation time of 12 hours. Source of Specimen Bile leak fluid Cell block for Non-compliance engineer products (M), Level 2 H&E, Non FENCE SUPERVISOR ThinPrep Fee Code(s): 1; 83497, 98240QG BILIARY DRAIN INTERNAL/EXT COMPon 93-75-3176HG BILIARY DRAIN INTERNAL/EXT COMPIR BILIARY DRAIN INTERNAL/EXT COMP History: Postop fluid collection in gallbladder fossa and extending subcapsularly around the lateral margin of the liver Exam/Technique: Ultrasound guided drainage of hepatic subcapsular biloma An informed consent was obtained from the patient . . The usual sterile barrier technique and localanesthesia were employed. From a right anterolateral approach the large collection was entered in its inferior portion with a10 Angolan pigtail drainage catheter, using trocar technique. A [...] by Zack Gibson MD on 07/20/2023 12:51 PMNSt. Elizabeth HospitalNM HEPATOBILIARY SYS IMAGING WO PHARMACOLOGIC AGENTon 29-52-8538VQ HEPATOBILIARY SYS IMAGING WO PHARMACOLOGIC AGENTNM HEPATOBILIARY SYS IMAGING WO PHARMACOLOGIC AGENT NM HEPATOBILIARY SYS IMAGING WO PHARMACOLOGIC AGENT: 07/20/2023 6:10 AM Clinical:Postcholecystectomy with possible bile leak. EXAM: HIDA SCAN HIDA scan performed with IV administration of 5.0 mCi technetium 99m mebrofenin. COMPARISON: Outside CT 07/15/2023. FINDINGS: There is prompt uptake of activity in the liver and excretion into the common duct and small bowel.No definite contrast extravasation seen outside the biliary system and bowel. Gallbladder surgically absent. There is a large photopenic defect along the lateral aspect of the liver corresponding to the largecystic lesion seen on CT; no activity seen in this location. Impression: * No CT evidence of biliary leak. * Large cystic photopenic defect along the lateral aspect of the liver corresponds to the fluid collection seen on CT and shows no internal activity. Finalized by Narayan Wan MD on 07/20/2023 7:35 AMNormalProChildren'S Medical Center DallasPLATELET COUNT AND MPVon 41-34-0559Jgkhmhaq mean volume (Bld) [Entitic vol]7.2 fLNormal7-12PMercy Health St. Joseph Warren HospitalComment on above:Performed By: #### PLTCT, PINR #### [facility] ([id number]) [address] [place] [address]Ruzfrfmpu (Bld) [#/Vol]247 10*3/oSHlwgmv050-201BjgCrzpcv [facility] HospitalComment on above:Performed By: #### PLTCT, PINR #### [facility] ([id number]) [address] [place] [address]DMRGSDW AND INRon 39-85-3922SQE Coag (PPP) [Relative time]1.1 {INR}Normal0.8-1.1PMercy Health St. Joseph Warren HospitalComment on above:Performed By: #### PLTCT, PINR #### [facility] ([id number]) [address] [place] [address]79[address]SL Coag (PPP) [Time]12.8 sNormal9.8-13.2PMercy Health St. Joseph Warren HospitalComuniversity of michigan health on above:Result Comment: NEW REFERENCE RANGEPerformed By: #### PLTCT, PINR #### [facility] ([id number]) [address] [place] [address]Xhpiczie labson 83-44-3660ElaKycajvDosher Memorial Hospitalurgical Pathologyon 13-53-2093IqcKmvwlf Health SystemLon 41-73-1116WRpzgdtcf: [id number] Received: 05/25/23 Status: BRENT Valenzuela Num: [id number] Spec Type: Surgical Subm Dr: Jaciel Echavarria DO Tissues: A Gallbladder (GALLBLADDER) Procedures: HE, Gross/Micro L3 Age/ Patient Sex Location Account Attending Physician Abigail Washington 77/M LABELL [id number] Jaciel Echavarria DO SPEC NUM: [id number] RECD: 05/25/23 STATUS: BRENT VALENZUELA NUM: [id number] DAMARI: 05/24/[address]: Jaciel Echavarria DO ENTERED: 05/25/23 [facility] DR: Iveth,Lab SPEC TYPE: Surgical DEPT: O[facility] WILLOUGHBY ORDERED: [...] red- brown to green-angel and denuded. . Floor Supervisor sections are submitted in one cassette labeled A1. CPT Codes 98047 Specimen: [id number] Received: 05/25/23 Status: BRENT Nilesh Num: [id number] Spec Type: Surgical Subm Dr: Jaciel Echavarria DO Tissues: A Gallbladder (GALLBLADDER) Procedures: HE, Gross/Micro L3 Patient: Abigail Washington [id number] (Continued) Signed (signature on file) Nikita Dunne MD 05/26/[address] [place] [address] Physician GroupAL STRESS/REST MULTIon 53-94-7753XB STRESS/REST MULTIPatient: ABIGAIL WASHINGTON Exam Date: 06/06/2022 : 1945 Gender:M Ordering : REVA SHANNON [facility] Admission #: [id number] Family : Order #: [id number] CLICK HERE TO VIEW EXAM RADIOLOGY REPORT [...] by: Zulema Hendrickson M.D. on 06/07/2022 at 07:05Genesis HospitalINSULINon 38-55-0024Uvxfhrq90.6 uIU/mLNormal2.6-24.9The [facility] Memorial HospitalComment on above:Performed By: #### INSULIN #### [facility] [address] [place] [address] Dr. Karely Toure AUTO DIFFon 03-61-2959DPKG #0.0 103/ulNormal0.0-0.1The [facility]-Hyde Memorial HospitalComment on above:Performed By: #### CBC #### [facility] [address] [address] [address] Karely Wadsworthsophils/100 WBC (Bld)0.6 %Normal0.2-2.0[facility] Comment on above:Performed By: #### CBC #### [facility] [address] [place] [address] Dr. Karely Bright #0.2 103/ulNormal0.0-0.7The [facility]Hy[facility] Memorial HospitalComment on above: Performed By: #### CBC #### [facility] [address] [place] [address] Dr. Karely Tidwellosinophils/100 WBC (Bld)3.9 %Normal0.9-7.0[facility] Comment on above:Performed By: #### CBC #### [facility] [address] [place] [address] Dr. Karely Tidwellrythrocyte distribution width (RBC) [Ratio]12.8 %Jkpmhd44.0-15.0 The [facility] Memorial HospitalComment on above:Performed By: #### CBC #### [facility] [address] [address] [address] Karely PerkinsHematocrit (Bld) [Volume fraction]48.4 %Fgyysl05.0-54.0The [facility] Memorial Hospitalment on above:Performed By: #### CBC #### [facility] [address] [place] [address] Dr. Karely PerkinsHemoglobin (Bld) [Mass/Vol]15.8 g/vJHdpqzk96.0-18.0The [facility] HospitalComment on above:Performed By: #### CBC #### [facility] [address] [place] [address] Dr. Karely PerkinsIG #0.01 10e3/ulNormal0.00-0.03The [facility] Memorial HospitalComment on above:Performed By: #### CBC #### [facility] [address] [place] [address] Dr. Karely Lundy %0.2 %Normal0.0-0.5The [facility]Hy[facility] Memorial HospitalComment on above: Performed By: #### CBC #### [facility] [address] [place] [address] Dr. Karely Cunningham #1.4 103/ulNormal1.2-3.8The [facility] Memorial HospitalComuniversity of michigan health on above:Performed By: #### CBC #### [facility] [address] [place] [address] Dr. Karely Osmanmphocytes/100 WBC (Bld)28.5 %Movdiz55.5-60.0The [facility] Memorial HospitalComment on above:Performed By: #### CBC #### [facility] [address] [place] [address] Dr. Karely FernandesUAL DIFF REQNONormalThe [facility] Memorial HospitalComment on above: Performed By: #### CBC #### [facility] [address] [place] [address] Dr. Karely Encarnacion (RBC) [Entitic mass]28.7 spLonnzw46.9-34.0The [facility] Memorial HospitalComment on above:Performed By: #### CBC #### [facility] [address] [address] [address] Karely UrrutiaHC (RBC) [Mass/Vol]32.6 g/fYZwqbad82.9-35.2The [facility] Memorial HospitalComment on above:Performed By: #### CBC #### [facility] [address] [address] [address] Karely UrrutiaV (RBC) [Entitic vol]87.8 oGXbryia26.0-94.0The [facility] Memorial HospitalComment on above:Performed By: #### CBC #### [facility] [address] [place] [address] Dr. Karely Kamara #0.5 103/ulNormal0.3-0.8The [facility] Memorial HospitalComment on above:Performed By: #### CBC #### [facility] [address] [place] [address] Dr. Karely Villegasocytes/100 WBC (Bld)10.3 %Normal1.7-12.0The [facility] Comment on above:Performed By: #### CBC #### [facility] [address] [place] [address] Dr. Karely Mckeon #2.7 103/ulNormal1.4-6.5The [facility] Memorial HospitalComment on above:Performed By: #### CBC #### [facility] [address] [address] [address] Karely Dorantesutrophils/100 WBC (Bld)56.5 %Guzkgv29.0-75.0The [facility] Memorial HospitalComment on above:Performed By: #### CBC #### [facility] [address] [place] [address] Dr. Karely Keithlet mean volume (Bld) [Entitic vol]9.3 fLCritically low 9.5-13.5The [facility] Memorial HospitalComment on above:Performed By: #### CBC #### [facility] [address] [place] [address] Dr. Karely PerkinsPLT184 103/uxOkzkba601-037Zha [facility]ichard HospitalComment on above: Performed By: #### CBC #### [facility] [address] [address] [address] Karely PerkinsRBC5.51 106/ulNormal4.70-6.10The [facility] on above:Performed By: #### CBC #### [facility] [address] [address] [address] Karely PerkinsWBC4.9 103/ulNormal4.0-11.0The [facility] on above: Performed By: #### CBC #### [facility] [address] [address] [address] Karely PerkinsGLYCOHEMOGLOBIN A1Con 32-18-4206NAU RECOMMENDATIONSEE BELOWAvita Health System Bucyrus HospitalComuniversity of michigan health on above:Result Comment: ADA RECOMMENDED LIMIT 4.0 - 6.0 ADA THERAPEUTIC TARGET < 7.0 ACTION SUGGESTED > 7.0Performed By: #### A1C #### [facility] [address] [place] [address] Dr. Karely PerkinsGlucose [Mass/Vol]120 mg/dLNoAvita Health System [facility] on above:Performed By: #### A1C #### [facility] [address] [address] [address] Karely PerkinsHbA1c (Bld) [Mass fraction]5.8 %Normal4.5-6.2[facility] on above:Performed By: #### A1C #### [facility] [address] [address] [address] Karely PerknisLIPID PROFILEon 34-08-8988ECGR-HDL RATIO NORMSEE [facility] Hospital - DublinComuniversity of mich[facility] health on above:Result Comment: 3.3 - 4.4 LOW RISK 4.4 - 7.1 AVERAGE RISK 7.1 - 11.0 MODERATE RISK >11.0 HIGH RISKPerformed By: #### CMP, LIPID #### [facility] [address] [place] [address] Dr. Karely PerkinsCholesterol [Mass/Vol]169 mg/dLNormal<=200[facility] Comment on above:Performed By: #### CMP, LIPID #### [facility] [address] [address] [address] Karely PerkinsCholesterol in HDL [Mass/Vol]74 mg/dLCritically lzwu33-20OutMercy Health St. Vincent Medical CenterComment on above:Performed By: #### CMP, LIPID #### [facility] [address] [address] [address] Karely PerkinsCholesterol in LDL [Mass/Vol]80.6 mg/dLNoProMedica Memorial HospitalComment on above:Performed By: #### CMP, LIPID #### [facility] [address] [address] [address] Karely Morataya.total/Cholesterol in HDL [Mass ratio]2.3 {ratio} NormalMercy Health St. Vincent Medical CenterComment on above:Performed By: #### CMP, LIPID #### [facility] [address] [address] [address] Karely Vargas NORMAL> or = 60 mg/dl - LOW CARDIOVASCULAR RISK <40 mg/dl - HIGH CARDIOVASCULAR RISKGenesis HospitalComment on above:Performed By: #### CMP, LIPID #### [facility] [address] [address] [address] Karely Stone CALC NORMALSEE BELOWGenesis HospitalComment on above:Result Comment: <100 mg/dl OPTIMAL 100 - 129 mg/dl NEAR OR ABOVE OPTIMAL 130 - 159 mg/dl BORDERLINE HIGH 160 - 189 mg/dl HIGH >190 mg/dl VERY HIGH Performed By: #### CMP, LIPID #### [facility] [address] [address] [address] Karely PerkinsTriglyceride [Mass/Vol]72 mg/dLNormal<=150[facility] Comment on above:Performed By: #### CMP, LIPID #### [facility] [address] [address] [address] Karely JohnsonLDL CALC14.4 mg/dLNoProMedica Memorial HospitalComment on above: Performed By: #### CMP, LIPID #### [facility] [address] [address] [address] Karely Arevalo 14(COMP METB)on 14-82-6971Flcmzcv [Mass/Vol]3.7 g/dLNormal 3.4-5.0The [facility]Hy[facility] Memorial HospitalComment on above:Performed By: #### CMP, LIPID #### [facility] [address] [address] [address] Karely PerkinsAlbumin/Globulin [Mass ratio]1.0 {ratio}NormalThe [facility]Hy[facility] Memorial HospitalComment on above:Performed By: #### CMP, LIPID #### [facility] [address] [address] [address] Karely Salazar [Catalytic activity/Vol]117 U/LCritically iaws36-704Ipw [facility] HospitalComment on above:Performed By: #### CMP, LIPID #### [facility] [address] [address] [address] Karely Hooper [Catalytic activity/Vol]24 U/TAixlvz24-09Nta [facility] HospitalComment on above:Performed By: #### CMP, LIPID #### [facility] [address] [address] [address] Karely Weinstein gap [Moles/Vol]9.4 mmol/LNormalThe [facility] Memorial HospitalComment on above:Performed By: #### CMP, LIPID #### [facility] [address] [address] [address] Karely PerkinsAST [Catalytic activity/Vol]34 U/MNmxymg87-87Qiy [facility] HospitalComment on above:Performed By: #### CMP, LIPID #### [facility] [address] [address] [address] Karely PerkinsBilirubin [Mass/Vol]0.7 mg/dLNormal0.2-1.0The [facility] Comment on above:Performed By: #### CMP, LIPID #### [facility] [address] [address] [address] Karely PerkinsCalcium [Mass/Vol]9.0 mg/dLNormal8.5-10.1The [facility] Comment on above:Performed By: #### CMP, LIPID #### [facility] [address] [address] [address] Karely PerkinsChloride [Moles/Vol]108 mmol/LCritically egxy03-035Nvu [facility] HospitalComment on above:Performed By: #### CMP, LIPID #### [facility] [address] [address] [address] Karely PerkinsCO2 [Moles/Vol]30.7 mmol/ZAqctuv78.0-32.0The [facility] Comment on above:Performed By: #### CMP, LIPID #### [facility] [address] [address] [address] Karely PerkinsCreatinine [Mass/Vol]0.90 mg/dLNormal0.70-1.30The [facility] Memorial HospitalComment on above:Performed By: #### CMP, LIPID #### [facility] [address] [address] [address] Karely TidwellGFR-AF INDIAN>60Normal>=60The [facility] Memorial HospitalComment on above:Performed By: #### CMP, LIPID #### [facility] [address] [address] [address] Karely Howard-NON AF INDIAN>60Normal>=60The [facility]lap Memorial Hospitalment on above:Performed By: #### CMP, LIPID #### [facility] [address] [address] [address] Karely PerkinsGlobulin (S) [Mass/Vol]3.6 g/dLNormalThe [facility] HospitalComment on above:Performed By: #### CMP, LIPID #### [facility] [address] [address] [address] Karely PerkinsGlucose [Mass/Vol]109 mg/dLCritically hand12-399Rsb [facility] HospitalComment on above:Performed By: #### CMP, LIPID #### [facility] [address] [place] [address] Dr. Karely PerkinsPotassium [Moles/Vol]4.1 mmol/LNormal3.5-5.1[facility] Comment on above:Performed By: #### CMP, LIPID #### [facility] [address] [address] [address] Karely PerkinsProtein [Mass/Vol]7.3 g/dLNormal6.4-8.2[facility] Comment on above:Performed By: #### CMP, LIPID #### [facility] [address] [address] [address] Karely PerkinsSodium [Moles/Vol]144 mmol/FYpotqn246-513ChfMercy Health St[facility] Comment on above:Performed By: #### CMP, LIPID #### [facility] [address] [place] [address] Dr. Karely PerkinsUrea nitrogen [Mass/Vol]20.0 mg/dLCritically high7.0-18.0[facility] Vincent Medical CenterComment on above:Performed By: #### CMP, LIPID #### [facility] [address] [place] [address] Dr. Karely South nitrogen/Creatinine [Mass ratio]22.2 mg/mgNormalThe [facility] HospitalComment on above:Performed By: #### CMP, LIPID #### [facility] [address] [place] [address] Dr. Karely Pederson SCROTUMon 29-45-0470BP SCROTUMEXAMINATION: US SCROTUM HISTORY: Varicocele ; left scrotal swelling for [...] Electronically authenticated by: ZULEMA HENDRICKSON Date: 2021-11-18 12:10[facility] Vital Signs Date TimeVital SignValuePerforming XihsartopIehayakp89-56-8500 10:57-0400Body uquglf826.18 cmPamela Shiva AMPHIBIAN CREWMEMBER-C Work Phone: [phone]07-28-2025 10:57-0400 Body mass index (BMI) [Ratio]24.3 kg/h9Inleua Shiva AMPHIBIAN CREWMEMBER-C Work Phone: [phone]07-28-2025 10:57-0400 Body gfonsn53.3 kgPamela Shiva AMPHIBIAN CREWMEMBER-C Work Phone: [phone]07-28-2025 10:57-0400 Diastolic blood mmseavuq56 mm[Hg]Reva Shiva AMPHIBIAN CREWMEMBER-C Work Phone: [phone] [place], [place] 2792507-28-2025 10:57-0400 Heart rate56 /minPamela Shiva AMPHIBIAN CREWMEMBER-C Work Phone: [phone] [place], [place] 2792507-28-2025 10:57-0400 SaO2% (BldA) [Mass fraction]99 %Reva Shiva AMPHIBIAN CREWMEMBER-C Work Phone: [phone] [place], [place] 2792507-28-2025 10:57-0400 Systolic blood uvsbjvbi800 mm[Hg]Reva Shiva AMPHIBIAN CREWMEMBER-C Work Phone: [phone]07-01-2025 12:37-0400 Body mfodzu269.18 cmPamela Shiva AMPHIBIAN CREWMEMBER-C Work Phone: [phone] [place], [place] 2792507-01-2025 12:37-0400 Body mass index (BMI) [Ratio]24.2 kg/q9Anlcfk Shiva AMPHIBIAN CREWMEMBER-C Work Phone: [phone]07-01-2025 12:37-0400 Body iqcwen99.08 kgPamela Shiva AMPHIBIAN CREWMEMBER-C Work Phone: [facility]07-01-2025 12:37-0400 Diastolic blood iayirukr89 mm[Hg]Reva Shannon AMPHIBIAN CREWMEMBER-C Work Phone: [phone] [place], [place] 0473607-01-2025 12:37-0400 Heart rate62 /minReva Garciamer AMPHIBIAN CREWMEMBER-C Work Phone: [phone] [place], [place] 0473607-01-2025 12:37-0400 SaO2% (BldA) [Mass fraction]99 %Reva Shannon AMPHIBIAN CREWMEMBER-C Work Phone: [facility]07-01-2025 12:37-0400 Systolic blood ojnhttan731 mm[Hg]Reva Shannon AMPHIBIAN CREWMEMBER-C Work Phone: [phone] [place], [place] 0473602-21-2025 10:05-0500 Body eargdl967.2 cmPacc 1 Work Phone: [facility]02-21-2025 10:05-0500Body mass index (BMI) [Ratio]25.55 kg/m2Pacc 1 Work Phone: [facility]02-21-2025 10:05-0500Body temperature 97.9 [degF]Pacc 1 Work Phone: [facility]02-21-2025 10:05-0500Body tkyuta61 kg Pacc 1 Work Phone: [facility]02-21-2025 10:05-0500Diastolic blood pkhroaed47 mm[Hg]Pacc 1 Work Phone: [facility]02-21-2025 10:05-0500Heart rate86 /min Pacc 1 Work Phone: [facility]02-21-2025 10:05-0500Respiratory rate 16 /minPacc 1 Work Phone: [facility]02-21-2025 10:05-1110NqE1% (BldA) [Mass fraction]99 %Pacc 1 Work Phone: [facility]02-21-2025 10:05-0500Systolic blood iwrrwulq144 mm[Hg]Pacc 1 Work Phone: [facility]11-06-2024 13:49-0500Blood Pressure LocationMichael NILL [phone]-SsrqfK[facility]11-06-2024 13:49-0500Diastolic blood tlqdfxyg56 mm[Hg]Jaciel NILL [phone]-Uuhwq General Surgery Nkzevyrg34-64-5826 13:49-0500Heart rate72 /minMichael NILL 493-6132Hkzxnc-Mnowf General Surgery Uyxebdzs38-89-8341 13:49-0500Respiratory rate16 /minMichael NILL [phone]-NlywaKettering Health [facility] Campus11-06-2024 13:49-0500Systolic blood ubvbubdh665 mm[Hg]Jaciel NILL [phone]-WyjzmK[facility]09-17-2024 13:38-0400Blood Pressure LocationMichael NILL 339-5288Wyxnta-Ufuwi General Surgery Crxknckl97-05-1540 13:38-0400Diastolic blood hvnluunh05 mm[Hg]Jaciel NILL [phone]-Jnaeq General Surgery Pugmyzfr11-57-3016 13:38-0400Heart rate72 /minMichael NILL 794-6700Zwjyvq-Evmwk General Surgery Zqjfgtpi65-20-0128 13:38-0400Respiratory rate16 /minMichael NILL 222-9700Aozgaz-Rpqzq General Surgery Azcgyoih27-50-1642 13:38-0400Systolic blood kocisdgi830 mm[Hg]Jaciel NILL 071-8900Dukbfb-Igszc General Surgery Awemhmwe98-61-0443 13:24-0400Blood Pressure LocationMichael NILL [phone]-HypvcK[facility]05-07-2024 13:24-0400Diastolic blood bzfxdjcy37 mm[Hg]Jacile NILL [phone]-KxjhvKindred Hospital Daytonue05-07-2024 13:24-0400Heart rate72 /minMichael NILL 801-1235Iyripl-NnckdKindred Hospital Daytonue05-07-2024 13:24-0400Respiratory rate16 /minMichael NILL [phone]-AmkqjKettering Health [facility]05-07-2024 13:24-0400Systolic blood iblmomxx549 mm[Hg]Jaciel NILL [phone]-GycihKettering Health [facility] Campus04-03-2024 11:36-0400Body dwcpiz833.2 cmLakeisha Smitholl NET PROGRAMMER ANALYST-CHILD AND ADOLESCENT THERAPIST Work Phone: [facility]04-03-2024 11:36-0400Body mass index (BMI) [Ratio]25.31 kg/t5RnndxlpLakeisha Jung NET PROGRAMMER ANALYST-CHILD AND ADOLESCENT THERAPIST Work Phone: [facility]04-03-2024 11:36-0400Body .3 kgLakeisha Jung NET PROGRAMMER ANALYST-CHILD AND ADOLESCENT THERAPIST Work Phone: [facility]04-03-2024 11:36-0400Diastolic blood fqbouorb93 mm[Hg]Lakeisha Erich NET PROGRAMMER ANALYST-CHILD AND ADOLESCENT THERAPIST Work Phone: [facility]04-03-2024 11:36-0400Heart rate 81 /minLakeisha Jung NET PROGRAMMER ANALYST-CHILD AND ADOLESCENT THERAPIST Work Phone: [facility]04-03-2024 11:36-0400Systolic blood kmtgduws446 mm[Hg]Lakeisha Smitholl NET PROGRAMMER ANALYST-CHILD AND ADOLESCENT THERAPIST Work Phone: [facility] Encounters Encounter DateEncounter TypeCare ProviderFacilityStart: 01-13-2025 End: 56-82-5353zxplbcdvbcKVCEXE S CRAMERFacility:[facility]art: 16-33-7776gxztknftaiQZJHDP S CRAMERFacility:[facility]tart: 09-30-2024 End: 70-05-4835xggfegximaKzzumm Sue Cramer AMPHIBIAN CREWMEMBER-C Work Phone: [facility] Work Phone: Start: 09-30-2024 End: 36-21-5544Qezeuue encounter procedureNicsheela Ramirez [facility] Work Phone: Start: 09-03-2024 End: 43-54-0572kmbfgucaerOaatvl Sue Cramer AMPHIBIAN CREWMEMBER-C Work Phone: [facility] Work Phone: Start: 09-03-2024 End: 21-52-6774Kdarbnx encounter procedureNicsheela Ramirez [facility] Work Phone: Start: 05-23-2024 End: 42-92-2385nhlbgablhcSHSOTW S CRAMERFacility:[facility]ertart: 05-23-2024 End: 61-85-3654Wzywpvg encounter procedureDesiree Rooney MD Work Phone: OphthalmologyComment on above:Pseudophakia of both eyes (Primary Dx); Fourth nerve palsy of left eyeStart: 05-22-2024 End: 20-09-9135pomuckazvqZXNIQ A MORLEYFacility:[facility] Centertart: 05-22-2024 End: 54-97-0485Bcyvhfb encounter procedureNanette Santa OD Work Phone: OphthalmologyComment on above:Pseudophakia, right eye (Primary Dx); Combined 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; Fourth nerve palsy of left eyeStart: 05-01-2024 End: 02-20-4899winvktwhzpGAGCS A MORLEYFacility:[facility]ertart: 04-26-2024 End: 09-96-0541Tyfuprd encounter procedureEye Measurements Work Phone: OphthalmologyComment on above:Combined forms of age- related cataract of right eye; Combined 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Start: 04-26-2024 End: 49-00-6688Rqqetxbgg to [address] [address] Work Phone: pre AnesthesiaStart: 04-26-2024 End: 03-70-0095lknhdzfwoeSADWLO S [facility] CENTERFacility:[facility]ertart: 04-26-2024 End: 89-61-4554Aiagtekjrm [address] [address] Work Phone: pre AnesthesiaComment on above:Pre-op evaluation (Primary Dx); Hyperlipidemia, unspecified hyperlipidemia type; Gastroesophageal reflux disease without esophagitisStart: 55-72-7942Uwfgkoicx for other preprocedural examinationMercy Health Willard HospitalStart: 04-26-2024 End: 25-59-3088Uxdpegflaomqj examination [address] [address] Work Phone: [facility] Work Phone: Start: 04-10-2024 End: 18-81-5182niosbvrqcjKAOUAWH MARIE COLLINSFacility:[facility] Start: 04-02-2024 End: 20-54-2036oisuralgftITNUW A MORLEYFacility:[facility]ertart: 04-02-2024 End: 22-03-7035Qybgrjf encounter procedureWedelmira Rooney MD Work Phone: OphthalmologyComment on above:Combined forms of age- related cataract of right eye (Primary Dx); Combined 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; Anatomical narrow angle, bilateral; Fourth nerve palsy of left eyeStart: 02-06-2024 End: 46-21-2500womwhblcftXnkyyhv R NILLFacility: YairueStart: 02-06-2024 End: 38-90-4881Sabmwkn encounter procedureMichael R NILL [phone]-JhhszC[facility] [place] Start: 01-24-2024 End: 19-30-0444dqsnxkszrnFavhsks R NILLFacility:[facility]ertart: 01-24-2024 End: 74-70-4429Qtzkfyc encounter procedureMichael R NILL [phone]-XorjdKettering Health Main Campus Start: 01-17-2024 End: 53-00-9201hjtqftrthhMztlbbr R NillFacility:[facility] Hospitaltart: 01-17-2024 End: 62-02-0064Bzrkyfxc ReferredJaciel Henry MD Work Phone: [facility]-LAB Path [facility] HospitalStart: 01-17-2024 End: 36-30-5843ifycitbskuCudghpb R NILLFacility:CD:[id number]: 01-10-2024 End: 50-25-2718gjfhjqayvcHvemqvj R NILLFacility:[facility] Centerrt: 01-10-2024 End: 37-74-6553Wlyeqtl encounter procedureMichael R NILL [phone]-RopzeKettering Health Main Campus Start: 80-67-0991Sgi-patient / Non-visitJaciel Henry MD Work Phone: [facility] Out[facility] Work Phone: Start: 11-21-2023 End: 99-86-5105rfwhvutzffTqrqgmk R NILLFacility:[facility] Centertart: 11-21-2023 End: 58-61-1666Kkhewfk encounter procedureMichael R NILL [phone]-SwdkaKettering Health Main Campus Start: 08-29-2023 End: 04-01-0050Eyomakm encounter procedureMichael R NILL [phone]-YlpxtMedicine Lodge Memorial Hospital Start: 08-09-2023 End: 51-05-8644qxbzjbdumrRhnmnwe R NillPark[facility] Work Phone: Start: 08-09-2023 End: 26-82-3853Pzczjddk ReferredDO Jaciel Echavarria Work Phone: [facility]-LAB Path Spec [facility] HospStart: 07-24-2023 End: 57-90-7528Atohvmndd encounterErin Fredrick [facility] Physicians General SurgeryStart: 07-20-2023 End: 88-77-2743heksokssuoYXGERMSelect Specialty Hospital Ambulatory PPGStart: 07-20-2023 End: 06-75-4334krvzeiodrmJGHBLCQ E GRILLISProMedica West [facility] Hospital And Health Centertart: 07-19-2023 End: 92-63-7457Bvahki OnlyMichael Marely Grillis DO Work Phone: [facility] Sign InComment on above:Abnormal CT of the abdomen (Primary Dx); Status post laparoscopic cholecystectomyStart: 07-18-2023 End: 23-19-6463Aywuhu OnlyMichael Marely Davidillis DO Work Phone: [facility] Sign InComment on above:Abnormal CT of the abdomen (Primary Dx); Status post laparoscopic cholecystectomyAbnormal CT of the abdomen (Primary Dx) Start: 07-17-2023 End: 17-29-1473Gympcmyzt encounterLauren Kiarra [facility] Phys[facility] General SurgeryStart: 07-11-2023 End: 06-38-7048Ccwkpgx encounter procedureMichael R NILL [phone]-FcjpaMedicine Lodge Memorial Hospital Start: 06-07-2023 End: 34-71-8851lcwdhldyziEPVCBAIDunn Memorial Hospital Ambulatory PPG Start: 06-07-2023 End: 01-32-1010Sklsjym encounter procedureLakeisha Jung NET PROGRAMMER ANALYST-CHILD AND ADOLESCENT THERAPIST Work Phone: [facility] General SurgeryComment on above: Status post laparoscopic cholecystectomy (Primary Dx); Status post umbilical hernia repair, follow-up examStart: 80-58-2273Hwtbzq Only Not In System Ref ProvProMedica Physicians General SurgeryStart: 05-25-2023 End: 22-46-0907Dcilwnmz ReferredDO Jaciel Echavarria Work Phone: [facility]-LAB Path Spec [facility]eth HospStart: 05-25-2023 End: 39-80-6901cqppdtoehuNrppfjl E [facility] Work Phone: Start: 06-06-2022 End: 92-26-3450mdkzdwtgsaXQKWQF CRAMERFacility:V6Ddiff: 05-18-2022 End: 43-53-0004fwckscyjztXWNCGB CRAMERFacility:C6Offxy: 11-18-2021 End: 99-11-6268zyenhhdrlrQJDQSZ CRAMERFacility:U2Gdhnl: 05-07-2020 End: 44-28-6257Xcewyki encounter procedureCassHoboken University Medical Center Work Phone: [facility] Work Phone: Procedures DateProcedureProcedure DetailPerforming ClinicianStart: 20-07-2051LFW BIOMETRY W/ IOL CALC OU (BOTH EYES)Desiree Rooney MD Work Phone: Start: 24-80-6806LNVNH ONLY - DIAGNOSTIC OU (BOTH EYES)Desiree Rooney MD Work Phone: Start: 58-08-4309Zdrdlf of umbilical herniaMichael NILL Start: 08-19-9530JsgejhworquSaiewuc NILL Start: 78-37-6412XBUNJFXM LABSNot In System Ref Prov Start: 15-34-8371Rveki i surg pathology gross examination onlyNot In System Ref ProvStart: 47-60-1385ZPJ screeningPAMELA CRAMERComment on above:Performed By: #### PSASC #### [facility] [address] [place] [address] Dr. Karely Eagleart: 33-12-9678Uum. administration COVID19 Moderna dose 1Cassie Remigio Work Phone: Start: 96-04-7556EVMJ-CoV-2 vaccine, 0.5ml Moderna Wendy Remigio Work Phone: Start: 47-19-0599DqrernegoklVmfzqmr NILL Start: 54-15-2722AobtdihoutrdxzwaggptalyvrdJvrxarv NILL Excision of basal cell carcinomaMichael NILL Comment on above:backExcision of squamous cell carcinomaMichael NILL Comment on above:left shoulderHistory of cholecystectomyStatus post laparoscopic cholecystectomyMichael E Grillis DO Work Phone: History of cholecystectomyStatus post laparoscopic cholecystectomyMichael E Grillis DO Work Phone: History of cholecystectomyStatus post laparoscopic cholecystectomyJessica A Jung NET PROGRAMMER ANALYST-CHILD AND ADOLESCENT THERAPIST Work Phone: Repair of umbilical herniaMichael NILL TonsillectomyMichael NILL Plan of Treatment DateCare ActivityDetailAuthorStart: 74-06-1452Dyvypzar ScreeningDiabetes ScreeningGrenora ClinicStart: 04-02-2025 End: 89-72-7900VBUUZ ONLY - DIAGNOSTIC OU (BOTH EYES)ASCAN ONLY - DIAGNOSTIC OU (BOTH EYES) OPHT Imaging Routine Combined forms of age-related cataract of right eye Combined 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 Expected: 04/02/2025, Expires: 09/24/2025leveland ClinicComment on above:Expected: 04/02/2025, Expires: 09/24/2025Start: 04-02-2025 End: 47-34-8100SFO BIOMETRY W/ IOL CALC OU (BOTH EYES)IOL BIOMETRY W/ IOL CALC OU (BOTH EYES) OPHT Imaging Routine Combined forms of age-related cataractof right eye Combined 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 Expected: 04/02/2025, Expires: 09/24/2025leveland ClinicComment on above:Expected: 04/02/2025, Expires: 09/24/2025Start: 72-06-1855Xppfv BMI ScreeningAdult BMI ScreeningDetwiler Memorial Hospital SystemStart: 67-85-4631Ggtuxgf ScreeningTobacco ScreeningDetwiler Memorial Hospital SystemStart: 16-06-3284Vmstv BMI ScreeningAdult BMI ScreeningProLima City Hospital SystemStart: 51-82-0320Ewziauu ScreeningTobacco ScreeningNovant Health Charlotte Orthopaedic Hospitaltart: 05-23-2024 End: 56-60-0634Yajleyn encounter zlbnbcyia65/20/2025 8:15 AM EDT Office Visit OPHT Ophthalmology [address] [place] [address] Desiree Rooney MD [address] [place] [address] Pseudophakia (Primary Dx); Combined 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OphthalmologyComment on above:Pseudophakia (Primary Dx); Combined 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Start: 05-22-2024 End: 58-34-6187Dzz bmtry prtl coher intrfrmtry io lens pwr calOPHTHALMIC BIOMETRY BY PARTIAL COHERENCE INTERFEROMETRY W/INTRAOCULAR LENS POWER CALCULATION Combined 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 05/22/2024 11:21 AM [facility] [place]Start: 05-22-2024 End: 84-28-8309Oivkjr ctrc rmvl insj io lens prosth w/o ecpPHACOEMULSIFICATION CATARACT IMPLANT INTRAOCULAR LENS W/O ENDOSCOPIC CYCLOPHOTOCOAGULATION Combined 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 05/22/2024 11:21 AM EDTMC [facility] [place] Start: 05-22-2024 End: 69-35-7857Llqdkdfbj to same day surgery centerAmbulatory SurgeryComment on above:PHACOEMULSIFICATION CATARACT IMPLANT INTRAOCULAR LENS W/O ENDOSCOPIC CYCLOPHOTOCOAGULATIONStart: 05-22-2024 End: 34-40-8785Zhk bmtry prtl coher intrfrmtry io lens pwr calM [facility] [place] Start: 11-10-4345Vhneursokz hospital visit by physicianAmbulatory SurgeryComment on above:Combined 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 [H25.812]Start: 05-22-2024 End: 04-03-1586Nxbfbb ctrc rmvl insj io lens prosth w/o ecpMC ASC L[place]AINStart: 75-60-3251Mzkoy-19 Vaccine ( season)Covid-19 Vaccine ()[facility] Centertart: 05-01-2024 End: 85-30-3746Jdsqyumqw to same day surgery centerAmbulatory SurgeryComment on above:PHACOEMULSIFICATION CATARACT IMPLANT INTRAOCULAR LENS W/O ENDOSCOPIC CYCLOPHOTOCOAGULATIONStart: 05-01-2024 End: 73-02-6703Imu bmtry prtl coher intrfrmtry io lens pwr [facility] [place] Start: 79-22-9379Dxgaonbhdf hospital visit by physicianAmbulatory SurgeryComment on above:Combined forms of age-related cataract of right eye [H25.811]Start: 05-01-2024 End: 20-27-7983Jqimkd ctrc rmvl insj io lens prosth w/o ecpMC ASC [facility]AINStart: 04-26-2024 End: 45-70-7328Llosmny encounter mmipvmmzb71/21/2025 11:00 AM EST Office Visit OPHT Ophthalmology [address] [facility] [place] [address] CATARACT SURGERY RIGHT THEN LEFT MORLEYOphthalmologyComment on above:CATARACT SURGERY RIGHT THEN LEFT MORLEYStart: 04-26-2024 End: 05-09-0992Izbgcqigi to same day surgery bhbopc6804/26/2024 10:20 AM EST PAT Pre Anesthesia [address] [facility] [place] [address] 1,[facility] Norma [address] [place] [address] CATARACT SURGERY RIGHT THEN LEFT MORLEYPre AnesthesiaComment on above:CATARACT SURGERY RIGHT THEN LEFT MORLEYStart: 04-10-2024 End: 26-32-5283Gzbgvnn encounter bxbcsjjur48/05/2025 3:45 PM EST Office [place] [address] CATARACT SURGERY RIGHT THEN LEFT MORLEYFinancial Clearance Phone ScreeningComment on above:CATARACT SURGERY RIGHT THEN LEFT MORLEYStart: 05-20-1328Dleykrd Directive DiscussionAdvance Directive DiscussionCleveland ClinicStart: 50-20-2638Rafofnoba vaccinationInfluenza VaccineDetwiler Memorial Hospital SystemStart: 30-04-5392Mxiwqqvvnl hospital visit by tyfkorkji99/16/2024 6:30 AM EDT Hospital Encounter [facility] [address] [place] [id number] Jaciel Echavarria DO [address] [place] [address] [facility] Nuclear MedIcineStart: 07-19-2023 End: 09-90-0120YT Liver and Biliary ducts and Gallbladder ViewsNM hepatobiliary system imaging without pharmacologic agent Imaging STAT Abnormal CT of the abdomenStatus post laparoscopic cholecystectomy Expected: 07/19/2023, Expires: 07/18/2024[facility] Work Phone: Comment on above:Expected: 07/19/2023, Expires: 07/18/2024Start: 07-18-2023 End: 05-65-0781TQ Liver and Biliary ducts and Gallbladder ViewsNM hepatobiliary system imaging without pharmacologic agent Imaging Routine Abnormal CT of the abdomen Expected: 07/18/2023, Expires: 07/17/2024[facility] Work Phone: Comment on above:Expected: 07/18/2023, Expires: 07/17/2024Start: 07-18-2023 End: 98-49-8977OZ Guidance for percutaneous replacement of drainage catheter of Biliary ducts and GallbladderIR biliary drainage catheter internal-external Imaging Routine Abnormal CT of the abdomen Status post laparoscopic cholecystectomy Expected: 07/18/2023, Expires: 07/17/2024[facility] Work Phone: Comment on above:Expected: 07/18/2023, Expires: 07/17/2024Start: 10-37-66208jv Dose- COVID VaccineTifMercy Regional Health Center Work Phone: Start: 22-32-7143Hvro Risk ScreeningFall Risk ScreeningProMagruder Hospitaltart: 30-20-2767Eygddshcjnaswe of varicella zoster vaccineZoster (Shingles) Vaccine (1 of 2)[facility] Hospitaltart: 61-51-5892Xvezccpv Vaccine (1 of 2)Shingrix Vaccine (1 of 2)[facility] Start: 74-29-9524Zshjpdpm ScreeningDiabetes ScreeningUniversity Hospitals Elyria Medical Centertart: 40-54-8079PIvZ,Tdap and Td Vaccines (1 - Tdap)DTaP,Tdap and Td Vaccines (1 - Tdap)[facility] Hospitaltart: 89-19-1005Bkpnt microalbumin profile DTaP,Tdap,Td Vaccine (1 - Tdap)[facility] Centertart: 81-45-4269Oushx BMI Follow Up PlanAdult BMI Follow Up PlanProMagruder Hospitaltart: 39-36-3167Gyeryqy ScreeningAnxiety ScreeningUniversity Hospitals Elyria Medical Centertart: 52-16-7991Hsdawmpqap Screening Depression ScreeningUniversity Hospitals Elyria Medical Centertart: 63-95-7653Ejlyaabxi C screening Hepatitis C ScreeningUniversity Hospitals Elyria Medical Centertart: 67-21-4642Faxetzggbr Screening Depression ScreeningNovant Health Charlotte Orthopaedic Hospitaltart: 06-19-1947Medicare Annual Wellness VisitMedicare Annual Wellness VisitGalion Hospital End: 84-82-2778Dhgwaaaqruiqh metabolic 2000 panel - Serum or PlasmaComprehensive metabolic panel Lab Routine Abnormal CT of the abdomen 1 Occurrences starting 07/18/2023 until 07/17/2024Gal[facility] HospitalComment on above:1 Occurrences starting 07/18/2023 until 07/17/2024 End: 49-40-4375FOVSFQF TOPOGRAPHY PENTACAM OU (BOTH EYES)CORNEAL TOPOGRAPHY PENTACAM OU (BOTH EYES) OPHT Imaging Routine Combined 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 Combined forms of age-related cataract of right eye 1 Occurrences starting 03/20/2024 until 09/11/2025[facility] ClinicComment on above:1 Occurrences starting 03/20/2024 until 09/11/2025MR Unspecified body [facility] Head vessels WO [facility] End: 41-27-6833LYX MACULA CIRRUS OU (BOTH EYES)OCT MAC[place]A CIRRUS OU (BOTH EYES) OPHT Imaging Routine Combined 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 Combined forms of age-related cataract of right eye 1 Occurrences starting 03/20/2024 until 09/11/2025[facility] Work Phone: Comment on above:1 Occurrences starting 03/20/2024 until 09/11/2025 Immunizations Immunization DateImmunizationNotesCare WxmmuakkUzwmynbq36-05-1554jhbagsbxi virus vaccine, unspecified formulationLakeisha Jung NET PROGRAMMER ANALYST-CHILD AND ADOLESCENT THERAPIST Work Phone: [phone]-JpuznKettering Health Main Campus10-11-2022 SARS-CoV-2 (COVID-19) mRNAMUL.ORD![id number] NILL [phone]-DynpqKettering Health [facility] Campus04-26-2022 SARS-CoV-2 (COVID-19) mRNA BNT-162b2 vaxMichael NILL [phone]-TbcqtKettering Health [facility] Campus11-03-2021 SARS-CoV-2 (COVID-19) mRNA-1273 vaccineMichael NILL [phone]-WvjurKettering Health [facility] Campus04-01-2021 SARS-CoV-2 (COVID-19) mRNA-1273 vaccineMichael NILL [phone]-RsyneKettering Health Main Campus03-04-20212nd Dose MODERNA COVID-19 Vaccine; Translations: [Moderna COVID-19 Vaccine]Luiz JohnsKaiser Permanente Medical CenterComment on above:Note: Patient tolerated well. No signs or symptoms of adverse reactions. Patient waited a minimum of 15 minutes. Payers DatePayer CategoryPayerPolicy [id number]-pay2023Medicare [id number] 2023Medicare (Managed Care)[employer] MEDICARE [id number] - Medicare FQHC CGS [id number] 2.16840.1.930126.3.140.1.35752.5.10.6.3 [id number] [id number] 1960Unknown [id number] 2.16840.1.438591.3.140.1.35909.[id number] 2.16840.1.627795.3.57[id number] 2.16840.1.538901.3.57[id number] 2.16840.1.187742.3.57[id number] 2.16840.1.120151.3.57[id number] 2.16.840.1.498411.3.57[id number] 2.16840.1.879782.3.57[id number] 2.16.840.1.140247.3.57[id number] 2.16840.1.241272.3.57[id number] 2.16840.1.716600.3.57[id number] 2.16840.1.854988.3.57[id number] 2.840.1.926719.3.57[id number] 2.16840.1.065325.3.57[id number] 2.840.1.481661.3.57[id number] 2.840.1.558037.3.57[id number] 2.840.1.704875.3.57[id number] 2.840.1.295509.3.579.2.727MedicareMedicare [id number] Health [id number] 2.16840.1.5[id number] 2.840.1.388542.3.579.2.531 [id number] 04.21.840.1.516182.3.579.2.531 Social History DateTypeDetailFacilityTobacco smoking statusUnknown if ever smokedDetwiler Memorial Hospital SystemStart: 92-48-0597Zdl Assigned At [facility]ertart: 07-11-2023 End: 74-36-9029Jrqxoyp smoking statusEx-smoker (finding)[facility] hospitalTobacco smoking statusNeverKettering Health [facility] Campus Start: 04-02-2024 End: 64-84-5430Wdg Assigned At [facility]ertart: 72-25-3428ZoeSoga (finding)[facility] Hospitaltart: 03-06-1957 End: 36-15-5440Qupfvkv of tobacco useCurrent smokerDetwiler Memorial Hospital SystemStart: 03-06-1957 End: 15-77-2035Zbayfzg of tobacco useCigarette SmokerDetwiler Memorial Hospital System Start: 04-02-2024 End: 87-51-4911Wsyffvabgw smoked current (pack per day) - Reported0.5PSt. Vincent Hospital SystemStart: 06-07-2023 End: 21-64-4299Mnextfs use and exposureSmokeless tobacco non-userDetwiler Memorial Hospital SystemStart: 04-02-2024 End: 11-79-8826Vkbvklsof beverage intakeCurrent drinker of alcohol (finding) [facility] SystemStart: 16-33-2701Cwe assigned at birthNot on file [facility] SystemStart: 50-49-4596Mykifrc CommentweeklyCleveland Clinic Start: 78-84-2627Ngltgen smoking status NHISNever smoked tobacco (finding) [facility] Medical Equipment Procedure CodeEquipment CodeEquipment Original TextEquipment IdentifierDates Cc60wf.190 [facility] [id number]_lhvHbekz: 24-53-7572Jp89sk.195 [facility] [id number]_khkBcnjd: 05-22-2024 Functional Status XtlsZudhwxumviGkitewJdocdqwv96-03-3772Luljycrjyi StatusN/AFMiami [facility] Hospital General Surgery Tzqbteah43-29-2794Vekvnxbkcb StatusN/[facility] Lxhbmria99-92-3594Kuhgnkzdca StatusN/[facility] Surgery Njktzncn32-83-2954Rtslhekuay StatusN/[facility] Surgery Hmwsfluv95-17-8809Rjmgwmusud StatusN/[facility] Surgery [place] Clinical Notes 06-07-2023 to 01-13-2025 Note Date & OkpnLqpeXqpqkmvg22-95-7289 NoteHNO ID: [id number] Author: WILBERTO BOWMAN MD Service: ? Author Type: Physician Type: Progress Notes Filed: 01/13/2025 14:14 Note Text: Consultation requested by Dr. Reva Shannon, CHILD AND ADOLESCENT THERAPIST, CHILD AND ADOLESCENT THERAPIST for an opinion regarding recurrent umbilical hernia. [...] hernia repair performed by Dr. Jolley at [facility] in [place], [place], with mesh placement - Regularly lifts his 80-pound Labrador with hip problems into his car Sciatica: - Recently developed sciatica - Describes sciatica as very painful - Expresses concern about undergoing another hernia repair while sciatica is active, fearing it may exacerbate his pain Blood pressure 156/71, pulse 63, temperature 36.9 ?C (98.4 ?F), SpO2 97%. General: No acute distress. Abd: [...] concerns addressed Pt appreciative of the care Wilberto Bowman MD I spent 30 minutes in the visit, with more than 50% of the total prdn-fs-vjtc time of the visit in counseling / coordination of care.[facility]11-10-2025 NoteHNO ID: [id number] Author: IGLESIA HARDY RN Service: ? Author Type: Registered Nurse Type: Progress Notes Filed: 01/13/2025 16:54 Note Text: FMLA/STD needed: No AMBULATORY PATIENT EDUCATION NOTE [...] dicussed REFERRAL (RECOMMENDATION): None Electronically Signed By: Iglesia Hardy RN In Department: GENERAL SURGERY [facility]11-10-2025 NoteEducation ([facility]) ABIGAIL WASHINGTON ([id number]) 1945 M Date Time Provider Department 01/13/25 IGLESIA HARDY [facility] Reason for Visit: Education Of Patient/family [904] Primary Visit Diagnosis:Incisional hernia, without obstruction or gangrene [K43.2] Order(s):PT ED DIGESTIVE DISEASE [2996153] Order #: [id number]: 1 During your visit today, we recorded the following information about you: Allergies As of Date: 01/13/2025 Noted Allergy Reaction OFLOXACIN 09/30/2024 14 - Other: See Comments 16 - Unknown Date Reviewed: 01/13/2025 Reviewed by: Radha Roger OCCA - Fully Assessed Prescriptions as of 01/13/2025 - omeprazole magnesium (PRILOSEC PO) Take by mouth. - gentamicin (GENTAK) 0.3 % ophthalmic solution One drop in the OPERATIVE EYE only four times a day starting the day before surgery and for three days after - prednisoLONE acetate (PRED FORTE) 1 % ophthalmic suspension Use one drop in operative eye as directed by Dr. Rooney starting tomorrow. - prednisoLONE acetate (PRED FORTE) 1 % ophthalmic suspension Use one drop in operative eye as directed by Dr. Rooney starting tomorrow. - simvastatin (ZOCOR) 20 mg tablet Take 20 mg by mouth. - naproxen sodium (ANAPROX) 220 mg tablet Take 220 mg by mouth every 4 hours as needed (prn). - Omeprazole Magnesium (PRILOSEC OTC) 20 mg tablet Take 20 mg by mouth. 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 Author Type: Physician Type: Progress Notes Filed: 05/23/2024 09:00 Note Text: ASSESSMENT/PLAN: 1. Pseudophakia - ICD9: V43.1, ICD10: Z96.1 (primary diagnosis) - 1 day PO S/P PC IOL Left eye (05/22/2024) Aim: Baldwin doing well; He is happy with the improvement in his vision. - S/P PC IOL Right eye (05/01/2024) Aim: Baldwin The patient was instructed to.... - Use [...] all of its relevant components. Desiree Rooney, [facility]03-20-2025 History of Present illness Narrative* Desiree Rooney MD - 05/23/2024 8:36 AM EDT ASSESSMENT/PLAN: 1. Pseudophakia - ICD9: V43.1, ICD10: Z96.1 (primary diagnosis) - 1 day PO S/P PC IOL Left eye (05/22/2024) Aim: Baldwin doing well; He is happy with the improvement in his vision. - S/P PC IOL Right eye (05/01/2024) Aim: Baldwin The patient was instructed to.... - Use [...] components. Desiree Rooney MD documented in [facility] encounterAccess [facility]03-19-2025 NoteHNO ID: [id number] Author: LOUDENSLAGER, NANETTE, OD Service: ? Author Type: AIRPORT ENGINEER Type: Progress Notes Filed: 05/22/2024 10:22 Note [...] p Cataract surgery May 22, 2024 10:20 [facility]03-19-2025 History of Present illness Narrative* [...] 22, 2024 10:20 AM documented in this encounterAccess Hospital [place]02-21-2025 NoteDate of Procedure 04/26/2024. Ankle Patch Molder Information Electric Container Tester: ARNEL. Notes Measurements only - see Procedure Record under Scanned Documents for signed results.[id number] NoteDate of Procedure 04/26/2024. Ankle Patch Molder Information Electric Container Tester: ARNEL.WPGVK41-66-2905 NoteHNO ID: [id number] Author: KELLIE ALCARAZ COA Service: ? Author Type: Ankle Patch Molder Type: Progress Notes Filed: 04/26/2024 11:17 Note Text: Confirmed with patient PLANO Both eyes Drop instructions given Co-manage with Roshan Gray, paper signed AUBRIE Chen April 26[facility]02-21-2025 History of Present illness Narrative* Kelile Alcaraz COA - 04/26/2024 11:04 AM EST Confirmed with patient PLANO Both eyes Drop instructions given Co-manage with Roshan Gray, paper signed AUBRIE Chen April 26, 2024 documented in this encounterAccess Hospital [place]02-21-2025 History and physical note * Tyler Beltran APRN.WENDY - 04/26/2024 10:20 AM EST Images from the original note were not included. [facility] HISTORY AND PHYSICAL EXAMINATION SERVICE DATE: 04/26/2024 SERVICE TIME: 10:02 AM PRIMARY CARE PHYSICIAN: Reva Shannon CNP, CHILD AND ADOLESCENT THERAPIST REASON FOR VISIT: Abigail Washington is a [...] have a large neck STOP-Bang Score: 2 YXQ7WQ0-ZEFx Score: Age: >=75 Sex: male CHF history: No Hypertension history: No Stroke/TIA/thromboembolism history: No Vascular disease history: No Diabetes history: No EEQ2YA3-CDWh Score: 2 ARISCAT Score: Age: 51-80 Preoperative [...] fevers. Neuro: No history of TIA's, stroke, HURL SHAKER tumor, impaired sensorium, hemiplegia, paraplegia or quadraplegia. No neurological symptoms or problems. Respiratory: No history of current cough or dyspnea, or pneumonia in the past 6 weeks. No history of respiratory/pulmonary symptoms or problems. Cardiovascular: No history of HTN requiring medication, no history of angina, CHF, GA, cardiac surgery or stents. Denies rest pain, [...] Abigail Washington DATE: 04/26/2024 TIME: 12:50 PM [facility]02-21-2025 History and physical note* Tyler Beltran APRN.CNP [...] have a large neck STOP-Bang Score: 2 UUZ6RV4-HPBf Score: Age: >=75 Sex: male CHF history: No Hypertension history: No Stroke/TIA/thromboembolism history: No Vascular disease history: No Diabetes history: No ABU3SK5-UJTp Score: 2 ARISCAT Score: Age: 51-80 Preoperative [...] fevers. Neuro: No history of TIA's, stroke, HURL SHAKER tumor, impaired sensorium, hemiplegia, paraplegia or quadraplegia. No neurological symptoms or problems. Respiratory: No history of current cough or dyspnea, or pneumonia in the past 6 weeks. No history of respiratory/pulmonary symptoms or problems. Cardiovascular: No history of HTN requiring medication, no history of angina, CHF, GA, cardiac surgery or stents. Denies rest pain, [...] Imm Admin: COVID-19 vaccine, age 12+ yr (PFIZER-BIONTPropelAd.com COMIRNATY) 12/14/2021 Imm Admin: COVID-19 vaccine, age 12+ yr, bivalent (MODERNA) 06/29/2021 Imm Admin: COVID-19 original vaccine, age 12+ yr, monovalent (PFIZER- BIONTPropelAd.com - PURPLE TOP) 01/06/2021 Imm Admin: COVID-19 [...] instructions and voices comprehension and compliance. SIGNATURE: Tlyer Beltran APRN.CNP PATIENT NAME: Abigail Washington DATE: 04/26/2024 TIME: 12:50 PM documented in this encounterAccess Hospital [facility]02-21-2025 Instructions* Patient Instructions* Tyler Beltran APRN.CNP - 04/26/2024 10:02 AM EST Images from the original note were not included. [facility] PATIENT PREOPERATIVE INSTRUCTIONS Desiree Rooney MD has scheduled you for your procedure at this surgery center: [facility]: [phone] --[phone] [facility] [facility] [place] [address]. Please read below carefully for your personalized [...] office. If you are currently using a xsff-hfj-mtav injectable or oral medication for diabetes or [...] Procedures: - YOU MUST HAVE A RESPONSIBLE TUB WASH OPERATOR TAKE YOU HOME. A REVOLVING INVENTORY CLERK OR DISK GRINDER CANNOT BE MADE A RESPONSIBLE TUB WASH OPERATOR. - We recommend that a responsible person stays with you overnight to take care of you. - You cannot stay in a hotel alone after outpatient surgery. You will not be permitted to have yoursurgery, if you do not have someone to take care of you. If you already have an Advance Directive, please fax a copy to [phone] or email to for it to be [...] day. Tyler Beltran APRN.CNP documented in this encounterAccess Hospital [facility]01-28-2025 NoteHNO ID: [id number] Author: DESIREE ROONEY MD Service: ? Author [...] kind referral! Allergies: see list - Aim: Baldwin OU. Patient understands the need for glasses [...] work [place] [facility] [place] [facility]; offered cataract Surgery OD/OS soon. Copy [...] of its relevant components. Desiree Rooney MD 04/02/24[facility]01-28-2025 History of Present illness Narrative* Desiree [...] kind referral! Allergies: see list - Aim: Baldwin OU. Patient understands the need for glasses [...] work and now [place] [facility]; offered cataract Surgery OD/OS soon. Copy [...] Desiree Rooney MD 04/02/24 documented in this encounterAccess Hospital [facility]11-20-2024 Hospital Discharge instructions Follow Up Care 01/24/2024 14:55:08 With:ELAINE FRANCISCO, CASE Bautista Address: [address] [place] [phone]- When: only if needed [facility] [place] [id number] NoteGeneral Surgery Office/Clinic Note Chief Complaint consultation [...] biloma was present; area reportedly aspirated at [facility]; will obtain records; just noticed bulges recently, [...] (09/23/2015), Cholecystectomy, Excision o (more content not included)...[facility] HospitalComment on above:Result Comment: Electronically Signed By: ELAINE FRANCISCO, Jaciel Hall\Date and Time Signed: 01/10/24 16:25 [id number] Evaluation + Plan note Diagnostic Tests Pending * Hepatic Function Panel 01/10/24 * Basic Metabolic Panel 01/10/24 * CBC w/ Auto Diff 01/10/24 [facility] [place] 09-17-2024 NoteGeneral Surgery Office/Clinic Note Chief Complaint [...] required percutaneous drainage, which was done in [place]; no pain or skin changes, no N/V [...] 2: Mother and Bro (more content not included)...[facility] HospitalComment on above:Result Comment: Electronically Signed By: ELAINE FRANCISCO, Jaciel Hall\Date and Time Signed: 11/21/23 17:00 [id number] Miscellaneous Notes* Telephone Encounter - Christie Alcala [...] with no further questions. documented in this encounterGalion [facility]05-20-2024 Telephone encounter Note* Telephone Encounter - [...] awesome levi do on his gallbladder surgery. [facility] OptiNoseEwdzya09-61-0851 Telephone encounter Note* Telephone Encounter - Ronda [...] up with me p.r.n.. Thanks, Dr. Kowalski [facility]05-20-2024 Telephone encounter Note* Telephone Encounter - Ronda Plunkett CMA - 07/24/2023 3:00 PM EDT Spoke with patient regarding Dr. Echavarria's message. Patient verbally understood with no further questions. [facility]05-20-2024 Miscellaneous Notes* Telephone Encounter - Christie Alcala CMA - 07/24/2023 2:10 PM EDT Cora says that she called the patient to schedule HIDA but, he told her that he already had thatdone, at [facility]. I spoke to my co-worker & she reports that he decided to change where he wanted it done. Without letting us know. documented in this encounterGalion Hospital05-20-2024 Telephone encounter Note* Telephone Encounter - Christie Alcala CMA - 07/24/2023 2:10 PM EDT Cora says that she called the patient to schedule HIDA but, he told her that he already had thatdone, at [facility]. I spoke to my co-worker & she reports that he decided to change where he wanted it done. Without letting us know. [facility]05-13-2024 Miscellaneous Notes* Telephone Encounter - Ronda Plunkett CMA - 07/17/2023 3:25 PM EDT Received a call from patient stating Reva Shannon CNP ordered a CT for patient. Dr. Echavarria performed a robotic cholecystectomy at [facility] on 05/24/23. Was informed that the CT showed some fluid. Patient stated Reva Shannon CNP is going to forward patient's CT results. Once we receive them I will inform Dr. Echavarria. documented in this encounterHolzer [facility] OptiNoseSzyijx97-79-1196 Telephone encounter Note* Telephone Encounter - Ronda Plunkett CMA - 07/17/2023 3:25 PM EDT Received a call from patient stating Reva Shannon CNP ordered a CT for patient. Dr. Echavarria performed a robotic cholecystectomy at [facility] on 05/24/23. Was informed that the CT showed some fluid. Patient stated Reva Shannon CNP is going to forward patient's CT results. Once we receive them I will inform Dr. Echavarria. [facility] CampaignAmp Syydky52-97-2037 History of Present illness Narrative* Lakeisha Jung [...] Status post laparoscopic cholecystectomy [Z90.49] JEVON SINGH [facility] [place] This note was created with the assistance of a speech recognition program. While intending to generate a timely document that accurately reflects the content of the visit, no guarantee can be provided that every grammatical or spelling mistake has been or will be identified or corrected. Thank you for your understanding. JEVON Singh 06/07/23 1150 documented in this encounterGalion HospitalChief complaint+Reason for visit Narrative* Chief Complaint Admit Date REFERRAL DR DAVY GRAY/4TH NERVE PA LSY September 03, 2024 12:33pm [facility] Work Phone: evaluation + Plan note No data available for this section [facility] evaluation + Plan note Future Appointments Appointment Date:10/18/2023 08:15:00 AM Scheduled Provider:Renate Brock MD Location:[facility] Appointment Type:URO New Patient [facility] Evaluation + Plan note Future Appointments Appointment Date:02/06/2024 08:40:00 AM Scheduled Provider:Jaciel HENRY MD Location:[facility] Appointment Type: Post Op 15 [facility] evaluation noteNo assessment information available [facility] Work Phone: evaluation note* Diagnosis Combined forms [...] of senile cataract [facility] encounter [facility]* Diagnosis Abnormal CT of the abdomen- Primary Nonspecific (abnormal) findings on radiological and other examination of abdominal area, including retroperitoneum Status post laparoscopic cholecystectomy Other postprocedural status [facility] Diagnosis Abnormal CT of the abdomen- Primary Nonspecific (abnormal) findings on radiological and other examination of abdominal area, including retroperitoneum documented in this encounter [facility]* Diagnosis Abnormal CT of the abdomen- Primary Nonspecific (abnormal) findings on radiological and other examination of abdominal area, including retroperitoneum Status post laparoscopic cholecystectomy Other postprocedural status documented in this encounter [facility]* Diagnosis Status post laparoscopic cholecystectomy- Primary Other postprocedural status Status post umbilical hernia repair, follow-up exam Follow-up examination, following other surgery documented in this encounter [facility]* Diagnosis Pre-op evaluation- Primary Preoperative [...] Follows with PCP documented in this encounter [facility] note* Diagnosis Combined forms of [...] of senile cataract documented in this encounter [facility] note* Diagnosis Pre-op evaluation- Primary [...] of senile cataract documented in this encounter [facility] note* Diagnosis Pre-op evaluation- Primary Preoperative examination, unspecified Hyperlipidemia, unspecified hyperlipidemia type Gastroesophageal reflux disease without esophagitis Esophageal reflux Pseudophakia of both eyes- Primary Lens replaced by other means 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, fourth or trochlear nerve palsy [facility] No data available for this section [facility] Surgery [place] InstructionsNot on filedocumented in this encounter [facility] SystemInstructionsNot on filedocumented in this encounter [facility] SystemInstructionsNot on filedocumented in this encounter [facility] SystemInstructionsNot on filedocumented in this encounter [facility] SystemInstructionsNot on filedocumented in this encounter [facility] SystemProgress note No data available for this section [facility] [place] Reason for referral (narrative)No reason for referral information availableFirelands [facility] Work Phone: Reason for Referral SpecialtyDiagnoses / ProceduresReferred By ContactReferred To ContactRadiology Diagnoses Abnormal CT of the abdomen Status post laparoscopic cholecystectomy Procedures IR biliary drainage catheter internal-external Jaciel Echavarria, DO [address] [place] [address] Referral IDStatusReasonStart DateExpiration DateVisits RequestedVisits [id number] Review/[id number] / ProceduresReferred By ContactReferred To ContactRadiology Diagnoses Abnormal CT of the abdomen Procedures NM hepatobiliary system imaging without pharmacologic [place] [address] [place] [address] Referral IDStatusReasonStart DateExpiration DateVisits RequestedVisits [id number] Review/[id number] / ProceduresReferred By ContactReferred To ContactRadiology Diagnoses Abnormal CT of the abdomen Status post laparoscopic cholecystectomy Procedures NM hepatobiliary system imaging without pharmacologic agent Jaciel Echavarria, DO [address] [place] [address] [facility] [address] [place] [address] Phone: [phone] Referral IDStatusReasonStart DateExpiration DateVisits RequestedVisits [id number]/15/20245/15/202555 Assessments Findings Encounter Date Encounter for Immunization 1st COVID Vaccine susan Flood CHILD AND ADOLESCENT THERAPIST 05/07/2020 Instructions Instructions not supported for this document type No Instructions Recorded History of Present Illness History of Present Illness not supported for this document type No History of Present Illness Recorded Family History No Family History Records Found Relationship Condition Age at Onset Recorded Date/T sadie mother Depression Unknown Diabetes mellitusUnknownHypertensionUnknownfatherHeart diseaseUnknownHigh blood cholesterolUnknownsisterMalignant neoplasmUnknown Review of System Review of Systems not [...] section and content) DATE CREATED AUTHOR 06/11/[address] [facility] DATE CREATED AUTHOR AUTHOR'S ORGANIZ ATION 07/22/2023 [facility] DATE CREATED AUTHOR AUTHOR'S ORGANIZ ATION 08/06/2023 [facility] DATE CREATED AUTHOR AUTHOR'S ORGANIZ ATION 01/19/2024 [facility] DATE CREATED AUTHOR AUTHOR'S ORGANIZ ATION 10/26/2024 [facility] DATE CREATED AUTHOR AUTHOR'S ORGANIZ ATION 01/14/2025 [facility] Care Teams (unrecognized sec tion and [...] Start: January 17, 2024 End: January 17, 2024Team MemberRelationshipSpecialtyStart DateEnd Date Reva Shannon, NET PROGRAMMER ANALYST-CHILD AND ADOLESCENT THERAPIST [address] [facility], [place] [id number] PCP - GeneralFamily Medicine06/01/23Team MemberRelationshipSpecialtyStart DateEnd Date Reva Shannon, NET PROGRAMMER ANALYST-CHILD AND ADOLESCENT THERAPIST [address] [facility], [place] [address] PCP - GeneralFamily Medicine06/01/23Team MemberRelationshipSpecialtyStart DateEnd Date Reva Shannon, NET PROGRAMMER ANALYST-CHILD AND ADOLESCENT THERAPIST [address] [facility], [place] [address] PCP - GeneralFamily Medicine06/01/23Team MemberRelationshipSpecialtyStart DateEnd Date Reva Shannon, NET PROGRAMMER ANALYST-CHILD AND ADOLESCENT THERAPIST [address] [facility], [place] [address] PCP - GeneralFamily Medicine06/01/23Team MemberRelationshipSpecialtyStart DateEnd Date Reva Shannon, NET PROGRAMMER ANALYST-CHILD AND ADOLESCENT THERAPIST [address] [facility], [place] [address] PCP - GeneralFamily Medicine06/01/23Team MemberRelationshipSpecialtyStart DateEnd Date Reva Shannon, NET PROGRAMMER ANALYST-CHILD AND ADOLESCENT THERAPIST [address] [facility], [place] [address] PCP - GeneralFamily Medicine06/01/23Team MemberRelationshipSpecialtyStart DateEnd Date Reva Shannon, CHILD AND ADOLESCENT THERAPIST [address] [place] [address] PCP - GeneralInternal Medicine04/10/24Team MemberRelationshipSpecialtyStart Date End Date Reva Shannon, CHILD AND ADOLESCENT THERAPIST [address] [place] [address] PCP - GeneralInternal Medicine04/10/24Team MemberRelationshipSpecialtyStart Date End Date Reva Shannon CNP [address] [place] [address] PCP - GeneralInternal Medicine04/10/24Team MemberRelationshipSpecialtyStart Date End Date Reva Shannon CNP [address] [place] [address] PCP - GeneralInternal Medicine04/10/24 Team Status: Active Member Role Status Dates Reva Shannon AMPHIBIAN CREWMEMBER-C Primary Care Provider Active Team Status: Inactive Member Role Status Dates Rupal Velazquez DO Attending Provider Active Sta rt: September 03, 2024 End: September 03, 2024PaDOM PaulinoCPrimary Care ProviderActiveStart: September 03, 2024 End: September 03, 2024 Team Status: Inactive Member Role Status Dates Reva Shannon AMPHIBIAN CREWMEMBER-C Primary Care Provider Active Start: September 30, 2024 End: September 30, 2024Rupal Velazquez DOAttending ProviderActiveStart: September 30, 2024 End: September 30, 2024 [...] or prosecute any alcohol or drug abuse patient.[facility] the event this information is protected by the Federal Confidentiality of Alcohol and Drug Abuse Patient Records regulations: The Federal rules restrict any use of the information to criminally investigate or prosecute any alcohol or drug abuse patient.[facility] DaytonIn the event this information is protected by the Federal Confidentiality of Alcohol and Drug Abuse Patient Records regulations: The Federal rules restrict any use of the information to criminally investigate or prosecute any alcohol or drug abuse patient.[facility] DaytonIn the event this information is protected by the Federal Confidentiality of Alcohol and Drug Abuse Patient Records regulations: The Federal rules restrict any use of the information to criminally investigate or prosecute any alcohol or drug abuse patient.[facility] DaytonIn the event this information is protected by the Federal Confidentiality of Alcohol and Drug Abuse Patient Records regulations: The Federal rules restrict any use of the information to criminally investigate or prosecute any alcohol or drug abuse patient.[facility] Reason for Visit (unrecogniz ed section and content) ReasonCommentsCataract EvaluationReasonCommentsPost-opPost op davinci cholecystectomy and umbilical hernia repair [facility] CommentsPre-Op VisitReasonCommentsPre-Op ExamReasonCommentsPost-Op Visit SpecialtyDiagnoses / ProceduresReferred By ContactReferred To ContactASC [facility] Diagnoses Combined 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 Combined 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 [H25.812] Procedures XCAPSL CTRC RMVL INSJ IO LENS PROSTH W/O ECP OPH BMTRY PRTL COHER INTRFRMTRY IO LENS PWR GEOVANNA PHACOEMULSIFICATION CATARACT IMPLANT INTRAOCULAR LENS W/O ENDOSCOPIC CYCLOPHOTOCOAGULATION OPHTHALMIC BIOMETRY BY PARTIAL COHERENCE INTERFEROMETRY W/INTRAOCULAR LENS POWER CALCULATION Ambulatory Surgery [address] [place] [address] Phone: tel: Referral IDStatusReasonStart DateExpiration DateVisits RequestedVisits [id number] (Ophthalmology) Both Eyes FOR RECORDS PERTAINING TO [...] BE BASED ON THE PRIMARY CLINICAL RECORDS. [facility]. provides no warranty or guarantee of the accuracy or completeness of information in this document.
== END 2025-01-14 13:54 | disposition home or self-care (01) ==
LOC: RAD 13:56
PROVIDERS: PCP Nurse Practitioner Family; Visit Provider Nurse Practitioner Family
DX: M54.30 Sciatica, unspecified side (principal); M51.369 Other intervertebral disc degeneration, lumbar region without mention of lumbar back pain or lower extremity pain
CPT/HCPCS: 72100